=== PATIENT | male | born 1950 | race Caucasian/White ===

== ENCOUNTER 2017-03-04 01:06 | Inpatient (IN) | payer MEDICARE, OTHER ==
[2017-03-04] MEDS ORDERED: AMIODARONE 450 MG in DEXTROSE 5% IN WATER 250 ML IV ONE ×2 (01:24)
[2017-03-04] MEDS ORDERED: DEXTROSE 5% IN WATER 100 ML with AMIODARONE 150 MG IV ONE (01:24)
[2017-03-04 01:32] LABS: Basophils # (A) 0.1 k/uL (0-0.2); Basophils % (A) 1 %; CH 32.5; CHCM 32.3; Eosinophils # (A) 0.7 k/uL (0-0.7); Eosinophils % (A) 6 %; HDW 2.49; HGB 17.2 gm/dL (13.0-17.5); Luc # (Auto) 0.37; Luc % (Auto) 3; Lymphocytes # (A) 4.4 k/uL (1.0-4.8); Lymphocytes % (A) 34 %; MCH 32.3 pg (25.0-35.0); MCHC 31.9 g/dL (31.0-37.0); MCV 101.3 fL (80.0-100.0); Macrocytosis Slight; Mean Platelet Volume 7.1; Monocytes # (A) 0.9 k/uL (0-1.0); Monocytes % (A) 7 %; Neutrophils # (A) 6.5 k/uL (1.3-7.7); Neutrophils % (A) 50 %; RBC 5.34 m/uL (4.30-5.90); WBC (Perox) 12.59
--- NOTE | 2017-03-04 01:35 | ED ---
General Adult HPI - General Chief complaint: Shortness of Breath Stated complaint: SOB Time Seen by Provider: 03/04/17 01:10 Source: patient, RN notes reviewed Mode of arrival: EMS Limitations: no limitations - History of Present Illness Initial comments: This is a 66-year-old male who comes in with past medical history significant for coronary artery disease and COPD. Patient states she's had difficulty breathing over the last couple of days he's run out of medicine service unable to get any relief. Patient decided tonight that is shortness of breath was worse so he called EMS. EMS gave him Solu-Medrol in route as well as some breathing treatments and he does feel better currently. Patient denies any chest pain or palpitations. Patient denies any recent fever or chills. Does have a cough but is nonproductive. Patient denies any abdominal pain patient denies nausea vomiting diarrhea. Patient denies headache patient denies numbness weakness. Patient denies any lightheadedness dizziness or near syncopal episode. - Related Data Home Medications Medication Instructions Recorded Confirmed Atorvastatin [Lipitor] 80 mg PO HS 10/08/14 03/04/17 Beclomethasone Dipropionate [Qvar 2 puff INHALATION RT-BID 10/08/14 03/04/17 80 mcg/puff] Ipratropium [place] [Atrovent Hfa] 2 puff INHALATION RT-QID 10/08/14 03/04/17 Ranitidine HCl 150 mg PO BID 10/08/14 03/04/17 rOPINIRole HCL [Requip] 2 mg PO HS 10/08/14 03/04/17 Clopidogrel [Plavix] 75 mg PO DAILY 10/14/14 03/04/17 Spironolactone [Aldactone] 25 mg PO DAILY 10/14/14 03/04/17 oxyCODONE HCL/ACETAMINOPHEN 1 each PO Q4HR PRN 11/23/14 03/04/17 [Percocet 7.5-325 mg] Albuterol Nebulized [Ventolin 2.5 mg INHALATION RT-Q6H 12/02/14 03/04/17 Nebulized] Lisinopril-Hctz 10-12.5 mg 1 tab PO DAILY 12/02/14 03/04/17 [Zestoretic 10-12.5] Previous Rx's Medication Instructions Recorded Aspirin 325 mg PO DAILY #1 tab 12/07/14 Allergies Allergy/AdvReac Type Severity Reaction Status Date / Time No Known Allergies Allergy Verified 03/04/17 01:19 Review of Systems ROS Statement: Those systems with pertinent positive or pertinent negative responses have been documented in the HPI. ROS Other: All systems not noted in ROS Statement are negative. Past Medical History Past Medical History: Coronary Artery Disease (CAD), Heart Failure, COPD, Deep Vein Thrombosis (DVT), GERD/Reflux, Hyperlipidemia, Hypertension, Myocardial Infarction (SD), Vascular Disorder Additional Past Medical History / Comment(s): 12/01/14 Pt admitted to floor s/p R fem fem bypass. Other HX: SD's x 11 SEP 2014, CHF, RESTLESS LEG SYNDROME, SEVERE RT FOOT PAIN R/T POOR CIRCULTION, SCIATICA PAIN, LEFT ROTATOR CUFF INJURY. Last Myocardial Infarction Date:: 10/08/14 History of Any Multi-Drug Resistant Organisms: None Reported Past Surgical History: Appendectomy, Bowel Resection, Heart Catheterization With Stent, Hernia Repair Additional Past Surgical History / Comment(s): 12/01/14 R femfem bypass, Abdominal aortagram with bilateral extremity, HEART CATH WITH STENT SEP 2014 , HERNIA SURG X3. Past Anesthesia/Blood Transfusion Reactions: No Reported Reaction Date of Last Stent Placement:: 2013 Past Psychological History: No Psychological Hx Reported Additional Psychological History / Comment(s): Pt lives alone in his home. Pt states he is independent. He does however have a great nephew who comes to the home every morning and cooks him breakfast. Pt ambulates using a walker. Pt does not drive but has family who can transport him if needed. Smoking Status: Current every day smoker Past Alcohol Use History: None Reported Past Drug Use History: Marijuana Additional Drug Use History / Comment(s): MARIJUANA 3-4 X a week. On those days he smokes about 3 joints. - Past Family History Mother Family Medical History: Chest Pain / Angina, Diabetes Mellitus, Hypertension, Myocardial Infarction (SD) Additional Family Medical History / Comment(s): Mother of SD at age 84 yrs. Father Additional Family Medical History / Comment(s): Father had black lung disease. General Exam - General Exam Comments Initial Comments: GENERAL: Patient is well-developed and well-nourished. Patient is nontoxic and well- hydrated and is in mild distress. ENT: Neck is soft and supple. No significant lymphadenopathy is noted. Oropharynx is clear. Moist mucous membranes. Neck has full range of motion without eliciting any pain. EYES: The sclera were anicteric and conjunctiva were pink and moist. Extraocular movements were intact and pupils were equal round and reactive to light. Eyelids were unremarkable. PULMONARY: Decreased breath sounds with expiratory wheezing. CARDIOVASCULAR: Patient is tachycardic at about 105 bpm and then occasionally he has a heart rate of 160 ABDOMEN: Soft and nontender with normal bowel sounds. No palpable organomegaly was noted. There is no palpable pulsatile mass. SKIN: Skin is clear with no lesions or rashes and otherwise unremarkable. NEUROLOGIC: Patient is alert and oriented x3. Cranial nerves II through XII are grossly intact. Motor and sensory are also intact. Normal speech, volume and content. Symmetrical smile. MUSCULOSKELETAL: Normal extremities with adequate strength and full range of motion. No lower extremity swelling or edema. No calf tenderness. LYMPHATICS: No significant lymphadenopathy is noted PSYCHIATRIC: Normal psychiatric evaluation. Normal interpersonal interactions appears functionally intact in deals appropriately with others. No signs of depression. No signs of anxiety. Limitations: no limitations Course Vital Signs 03/04/17 03/04/17 01:10 01:24 Temperature 97.2 F L Pulse Rate 75 Respiratory 16 18 Rate Blood Pressure 116/72 O2 Sat by Pulse 97 Oximetry Medical Decision Making - Medical Decision Making Patient's EKG showed a wide complex tachycardia at about 165 bpm QRS is 172 QT interval 322 QTC is 533. EKG done shortly after the first one after the patient converted to a sinus rhythm shows a sinus tachycardia at 106 bpm HI interval is 166 QRS is 100 QT interval 336 QTC is 446. Patient's EKG shows no ST segment elevation. I spoke with Dr. Nargis Barillas wanted amiodarone started to give the patient a bolus 150 mg and then started patient on amiodarone drip. Spoke with Dr. Negron agreed to admit the patient admitted the patient and wrote admitting orders. - Lab Data Result diagrams: 03/04/17 01:15 03/04/17 01:15 Lab Results 03/04/17 03/04/17 03/04/17 Range/Units 01:15 01:15 01:15 WBC 13.0 H (3.8-10.6) k/uL RBC 5.34 (4.30-5.90) m/uL Hgb 17.2 (13.0-17.5) gm/dL Hct 54.0 H (39.0-53.0) % MCV 101.3 H (80.0-100.0) fL MCH 32.3 (25.0-35.0) pg MCHC 31.9 (31.0-37.0) g/dL RDW 13.0 (11.5-15.5) % Plt Count 228 (150-450) k/uL Neutrophils % 50 % Lymphocytes % 34 % Monocytes % 7 % Eosinophils % 6 % Basophils % 1 % Neutrophils # 6.5 (1.3-7.7) k/uL Lymphocytes # 4.4 (1.0-4.8) k/uL Monocytes # 0.9 (0-1.0) k/uL Eosinophils # 0.7 (0-0.7) k/uL Basophils # 0.1 (0-0.2) k/uL Macrocytosis Slight PT (9.0-12.0) sec INR (<1.1) APTT (22.0-30.0) sec Sodium 140 (137-145) mmol/L Potassium 4.5 (3.5-5.1) mmol/L Chloride 104 (98-107) mmol/L Carbon Dioxide 27 (22-30) mmol/L Anion Gap 9 mmol/L BUN 13 (9-20) mg/dL Creatinine 0.90 (0.66-1.25) mg/dL Est GFR (MDRD) Af Amer >60 (>60 ml/min/1.73 sqM) Est GFR (MDRD) Non-Af >60 (>60 ml/min/1.73 sqM) Glucose 104 H (74-99) mg/dL Calcium 9.6 (8.4-10.2) mg/dL Magnesium 1.8 (1.6-2.3) mg/dL Total Bilirubin 0.5 (0.2-1.3) mg/dL AST 27 (17-59) U/L ALT 33 (21-72) U/L Alkaline Phosphatase 64 (38-126) U/L Total Creatine Kinase 163 (55-170) U/L CK-MB (CK-2) 2.9 H* (0.0-2.4) ng/mL CK-MB (CK-2) Rel Index 1.8 Troponin I <0.012 (0.000-0.034) ng/mL Total Protein 7.5 (6.3-8.2) g/dL Albumin 4.4 (3.5-5.0) g/dL 03/04/17 Range/Units 01:15 WBC (3.8-10.6) k/uL RBC (4.30-5.90) m/uL Hgb (13.0-17.5) gm/dL Hct (39.0-53.0) % MCV (80.0-100.0) fL MCH (25.0-35.0) pg MCHC (31.0-37.0) g/dL RDW (11.5-15.5) % Plt Count (150-450) k/uL Neutrophils % % Lymphocytes % % Monocytes % % Eosinophils % % Basophils % % Neutrophils # (1.3-7.7) k/uL Lymphocytes # (1.0-4.8) k/uL Monocytes # (0-1.0) k/uL Eosinophils # (0-0.7) k/uL Basophils # (0-0.2) k/uL Macrocytosis PT 11.2 (9.0-12.0) sec INR 1.1 (<1.1) APTT 26.9 (22.0-30.0) sec Sodium (137-145) mmol/L Potassium (3.5-5.1) mmol/L Chloride (98-107) mmol/L Carbon Dioxide (22-30) mmol/L Anion Gap mmol/L BUN (9-20) mg/dL Creatinine (0.66-1.25) mg/dL Est GFR (MDRD) Af Amer (>60 ml/min/1.73 sqM) Est GFR (MDRD) Non-Af (>60 ml/min/1.73 sqM) Glucose (74-99) mg/dL Calcium (8.4-10.2) mg/dL Magnesium (1.6-2.3) mg/dL Total Bilirubin (0.2-1.3) mg/dL AST (17-59) U/L ALT (21-72) U/L Alkaline Phosphatase (38-126) U/L Total Creatine Kinase (55-170) U/L CK-MB (CK-2) (0.0-2.4) ng/mL CK-MB (CK-2) Rel Index Troponin I (0.000-0.034) ng/mL Total Protein (6.3-8.2) g/dL Albumin (3.5-5.0) g/dL Critical Care Time Critical Care Time: Yes Total Critical Care Time: 35 Disposition Clinical Impression: Wide-complex tachycardia, COPD with acute exacerbation Disposition: ADMITTED IP TO THIS HOSP Referrals: Neo Oden DO [Primary Care Provider] - 1-2 days Time of Disposition: 02:35
[2017-03-04 01:43] LABS: ALT 33 U/L (21-72); AST 27 U/L (17-59); Alkaline Phosphatase 64 U/L (38-126); Anion Gap 9 mmol/L; Blood Urea Nitrogen 13 mg/dL (9-20); Calcium 9.6 mg/dL (8.4-10.2); Carbon Dioxide 27 mmol/L (22-30); Chloride 104 mmol/L (98-107); Glucose 104 mg/dL (74-99); Magnesium 1.8 mg/dL (1.6-2.3); Non-African American GFR(MDRD) >60 (>60 ml/min/1.73 sqM); Potassium 4.5 mmol/L (3.5-5.1); Sodium 140 mmol/L (137-145); Total Bilirubin 0.5 mg/dL (0.2-1.3); Total Protein 7.5 g/dL (6.3-8.2)
[2017-03-04 01:47] LABS: INR 1.1 (<1.1); Partial Thromboplastin Time 26.9 sec (22.0-30.0); Prothrombin Time 11.2 sec (9.0-12.0)
[2017-03-04 02:08] LABS: Creatine Kinase 163 U/L (55-170)
[2017-03-04 02:21] LABS: Troponin I <0.012 ng/mL (0.000-0.034)
[2017-03-04 02:29] LABS: Creatine Kinase MB 2.9 ng/mL (0.0-2.4)
[2017-03-04] MEDS ORDERED: IPRATROPIUM-ALBUTEROL 3 ML NEB INHALATION PRN ×3 (02:36→22:44)
--- NOTE | 2017-03-04 03:31 | XR ---
PROCEDURE: FILM CXR 2 VIEWS HISTORY: 66-year-old male with chest pain. COMPARISON: Chest radiograph 10/14/2014 TECHNIQUE: Frontal and lateral views of the chest were obtained. FINDINGS: Cardiomediastinal silhouette is stable. Mild peribronchial cuffing, may be due to bronchitis or interstitial edema. Ground glass densities in the left lower lobe may be due to developing pneumonia. Followup chest x-ray in 4 weeks is recommended. Bones are unremarkable for age. IMPRESSION: Mild peribronchial cuffing, may be due to bronchitis or interstitial edema.. Ground glass densities in the left lower lobe may be due to developing pneumonia. Followup chest x-ray in 4 weeks is recommended.. [employer] 03/04/17 03:41 Verify Receipt Verified receipt with JOLEEN Recio in ER for Dr. Aaron on 03/04 03:41 (-04:00)
[2017-03-04 03:56] VITALS: BMI 25.5
[2017-03-04] MEDS: methylPREDNISolone SOD SUCCI 125 MG/2 ML VIAL IV SCH ×3 (06:52→17:33)
--- NOTE | 2017-03-04 08:34 | P.CRDCN ---
History of Present Illness Consult date: 03/04/17 Requesting physician: Sav Negron Reason for Consult (text): VSolomon tach Chief complaint: Shortness of breath History of present illness: Is a 66-year-old gentleman with history of hypertension, hyperlipidemia, coronary artery disease with prior circumflex stenting, severe PAD with prior peripheral bypass, the OPD, nicotine dependence, who follows with Dr. Oden as an outpatient. Patient presents to the hospital with symptoms of severe difficulty in breathing, patient states he also felt his heart racing very fast.. According to the patient he had ran out of his inhalers at home and states that his breathing became severe and for this reason he called EMS to be brought to the hospital. There is no EMS documentation in the chart. EKG on arrival here showed a sustained ventricular tachycardia, shortly after arrival patient converted to normal sinus rhythm, again within 1 minute patient went back into sustained ventricular tachycardia. He was given an amiodarone bolus and started on amiodarone drip. EKG performed this morning showed a normal sinus rhythm with lateral ST-T wave changes. X-ray and admission revealed mild peribronchial cuffing may be due to bronchitis or interstitial edema. Possible pneumonia. The pressure on arrival 116/70. White blood cell count on admission 13.0, hemoglobin 17.2, platelet count 228. Potassium 4.5, BUN 13, creatinine 0.9. The serum level I.8, troponin 0.012. At the time of my examination this morning, patient denies any chest discomfort, no palpitations, breathing is significantly improved from admission, although the patient continues to have wheezing. Past Medical History Past Medical History: Coronary Artery Disease (CAD), Heart Failure, COPD, Deep Vein Thrombosis (DVT), GERD/Reflux, Hyperlipidemia, Hypertension, Myocardial Infarction (MA), Vascular Disorder Additional Past Medical History / Comment(s): 12/01/14 Pt admitted to floor s/p R fem fem bypass. Other HX: MA's x 11 SEP 2014, CHF, RESTLESS LEG SYNDROME, SEVERE RT FOOT PAIN R/T POOR CIRCULTION, SCIATICA PAIN, LEFT ROTATOR CUFF INJURY. BILATERAL HIP PAIN Last Myocardial Infarction Date:: 10/08/14 History of Any Multi-Drug Resistant Organisms: None Reported Past Surgical History: Appendectomy, Bowel Resection, Heart Catheterization With Stent, Hernia Repair Additional Past Surgical History / Comment(s): 12/01/14 R femfem bypass, Abdominal aortagram with bilateral extremity, HEART CATH WITH STENT SEP 2014 , HERNIA SURG X3. Past Anesthesia/Blood Transfusion Reactions: No Reported Reaction Date of Last Stent Placement:: 2013 Past Psychological History: No Psychological Hx Reported Additional Psychological History / Comment(s): Pt lives alone in his home. Pt states he is independent. He does however have a great nephew who comes to the home every morning and cooks him breakfast. Pt ambulates using a walker. Pt does not drive but has family who can transport him if needed. Smoking Status: Current every day smoker Past Alcohol Use History: None Reported Past Drug Use History: Marijuana Additional Drug Use History / Comment(s): MARIJUANA 3-4 X a week. On those days he smokes about 3 joints. - Past Family History Mother Family Medical History: Chest Pain / Angina, Diabetes Mellitus, Hypertension, Myocardial Infarction (MA) Additional Family Medical History / Comment(s): Mother of MA at age 84 yrs. Father Additional Family Medical History / Comment(s): Father had black lung disease. Medications and Allergies Home Medications Medication Instructions Recorded Confirmed Type Atorvastatin [Lipitor] 80 mg PO HS 10/08/14 03/04/17 History Beclomethasone Dipropionate [Qvar 2 puff INHALATION RT-BID 10/08/14 03/04/17 History 80 mcg/puff] Ipratropium [place] [Atrovent Hfa] 2 puff INHALATION RT-QID 10/08/14 03/04/17 History Ranitidine HCl 150 mg PO BID 10/08/14 03/04/17 History rOPINIRole HCL [Requip] 2 mg PO HS 10/08/14 03/04/17 History Clopidogrel [Plavix] 75 mg PO DAILY 10/14/14 03/04/17 History Spironolactone [Aldactone] 25 mg PO DAILY 10/14/14 03/04/17 History oxyCODONE HCL/ACETAMINOPHEN 1 tab PO Q4HR PRN 11/23/14 03/04/17 History [Percocet 7.5-325 mg] Albuterol Nebulized [Ventolin 2.5 mg INHALATION RT-Q6H 12/02/14 03/04/17 History Nebulized] Lisinopril-Hctz 10-12.5 mg 1 tab PO DAILY 12/02/14 03/04/17 History [Zestoretic 10-12.5] Allergies Allergy/AdvReac Type Severity Reaction Status Date / Time No Known Allergies Allergy Verified 03/04/17 07:58 Physical Exam Vitals: Vital Signs Temp Pulse Pulse Resp BP BP Pulse Ox 03/04/17 04:00 97.2 F L 82 20 112/71 94 L 03/04/17 03:08 90 18 112/65 96 03/04/17 02:58 97.2 F L 82 20 112/71 94 L 03/04/17 02:38 86 18 103/64 97 Intake and Output 03/03/17 03/04/17 03/04/17 22:59 06:59 14:59 Intake Total 83.2 Output Total 100 Balance -16.8 Intake: IV 83.2 Amiodarone 450 mg In 83.2 Dextrose 5% in Water 250 ml @ 1 MG/MIN 34.53 mls/ hr IV .Q7H31M ONE Rx#: [id number] Output: Urine 100 Other: Voiding Method Toilet Urinal # Voids 1 Weight 79.2 kg PHYSICAL EXAMINATION: HEENT: Head is atraumatic, normocephalic. Pupils equal, round. Neck is supple. There is no elevated jugular venous pressure. HEART EXAMINATION: Heart S1, S2 normal. No murmur or gallop heard. CHEST EXAMINATION: Lungs reveal scattered wheezes throughout with decreased air exchange ABDOMEN: Soft, nontender. Bowel sounds are heard. No organomegaly noted. EXTREMITIES: 2+ peripheral pulses with no evidence of peripheral edema and no calf tenderness noted. NEUROLOGIC patient is awake, alert and oriented -3. . Results 03/04/17 01:15 03/04/17 01:15 Current Medications Generic Name Dose Route Start Last Admin Trade Name Freq PRN Reason Stop Dose Admin Albuterol/Ipratropium 3 ml 03/04/17 02:36 Duoneb 0.5 Mg-3 Mg/3 Ml Soln INHALATION RT-Q4H PRN Shortness Of Breath Or Wheezing Amiodarone HCl 450 mg/ 259 mls @ 34.53 mls/hr 03/04/17 01:24 03/04/17 02:06 Dextrose/Water IV 03/04/17 08:54 1 mg/min .Q7H31M ONE 34.53 mls/hr 1 MG/MIN Administration Insulin Human Lispro 0 unit 03/04/17 12:30 Humalog SQ ACHS [facility] Protocol Methylprednisolone Sodium Succinate 60 mg 03/04/17 06:00 03/04/17 06:52 Solu-Medrol IV 60 mg Q6HR ROCHELLE Administration Intake and Output 03/03/17 03/04/17 03/04/17 22:59 06:59 14:59 Intake Total 83.2 Output Total 100 Balance -16.8 Intake: IV 83.2 Amiodarone 450 mg In 83.2 Dextrose 5% in Water 250 ml @ 1 MG/MIN 34.53 mls/ hr IV .Q7H31M ONE Rx#: [id number] Output: Urine 100 Other: Voiding Method Toilet Urinal # Voids 1 Weight 79.2 kg EKG Interpretations (text) Initial EKG showed sustained ventricular tachycardia. EKG this morning shows normal sinus rhythm with lateral ST-T wave changes Assessment and Plan Plan: Assessment and plan #1 sustained ventricular tachycardia #2 severe shortness of breath, decreased secondary to exacerbation of COPD #3 known history of coronary artery disease with prior circumflex stenting #4 severe PAD with prior peripheral bypass #5 nicotine dependence #6 COPD #7 hypertension #8 hyperlipidemia Plan We will continue the IV amiodarone drip. We will also obtain to further troponin values. Obtain echocardiogram with Doppler study. We'll put the patient on aspirin, Lipitor, resume his Zestoretic, Aldactone, add beta francesco. Give the patient 2 g of IV magnesium. Further recommendations to follow. DNP note has been reviewed, I agree with a documented findings and plan of care. Patient was seen and examined.
[2017-03-04] MEDS ORDERED: ALBUTEROL NEBULIZED 2.5 MG/3 ML INHALATION PRN (08:57)
[2017-03-04] MEDS ORDERED: oxyCODONE-APAP 10-325MG 1 EACH TAB PO PRN (08:57)
[2017-03-04] MEDS: METOPROLOL TARTRATE 12.5 MG TAB PO SCH (09:20)
[2017-03-04] MEDS: SPIRONOLACTONE 25 MG TAB PO SCH (09:20)
[2017-03-04] MEDS: MAGNESIUM SULFATE-D5W PMX 1 GM in DEXTROSE/WATER 1 100ML.BAG IVPB SCH ×2 (09:20→10:57)
[2017-03-04] MEDS: LISINOPRIL-HCTZ 10-12.5 MG 1 EACH TAB PO SCH (09:20)
[2017-03-04] MEDS: ASPIRIN 81 MG CHEW PO SCH (09:20)
[2017-03-04] MEDS: CLOPIDOGREL 75 MG TAB PO SCH (09:21)
[2017-03-04] MEDS ORDERED: ATORVASTATIN 80 MG TAB PO STA (09:50)
[2017-03-04] MEDS ORDERED: SODIUM CHLORIDE 0.9% 1,000 ML in EMPTY BAG 1 BAG IV ONE (09:50)
[2017-03-04] MEDS ORDERED: ALPRAZolam 0.5 MG TAB PO PRN (09:50)
[2017-03-04] MEDS ORDERED: ALPRAZolam 0.25 MG TAB PO PRN (09:50)
[2017-03-04] MEDS ORDERED: NITROGLYCERIN SL TABS 0.4 MG TAB SUBLINGUAL PRN (09:50)
[2017-03-04] MEDS ORDERED: ASPIRIN 81 MG CHEW PO STA (09:50)
[2017-03-04] MEDS: AMIODARONE 450 MG in DEXTROSE 5% IN WATER 250 ML IV SCH ×2 (10:56)
--- NOTE | 2017-03-04 11:00 | ECHOF ---
Referral Reason:[facility] MEASUREMENTS -------- HEIGHT: 175.3 cm WEIGHT: 78.9 kg BP: 112/71 RVIDd: 3.5 cm (< 3.3) IVSd: 1.2 cm (0.6 - 1.1) LVIDd: 5.7 cm (3.9 - 5.3) LVPWd: 1.2 cm (0.6 - 1.1) IVSs: 1.8 cm LVIDs: 4.4 cm LVPWs: 1.6 cm LA Diam: 4.1 cm (2.7 - 3.8) LAESV Index (A-L): 27.22 ml/m Ao Diam: 3.6 cm (2.0 - 3.7) AV Cusp: 2.3 cm (1.5 - 2.6) MV EXCURSION: 14.751 mm (> 18.000) MV EF SLOPE: 63 mm/s (70 - 150) EPSS: 1.3 cm MV E Kleber: 0.64 m/s MV DecT: 264 ms MV A Kleber: 0.85 m/s MV E/A Ratio: 0.75 RAP: 5.00 mmHg RVSP: 36.60 mmHg FINDINGS -------- Sinus rhythm with extra systolic beats. This was a technically adequate study. The left ventricular size is normal. There is borderline concentric left ventricular hypertrophy. Overall left ventricular systolic function is severely impaired with, an EF between 20 - 25 %. Basal inferior LV wall motion is hypokinetic. Apical anterior LV wall motion is akinetic. Apical lateral LV wall motion is akinetic. Apical inferior LV wall motion is akinetic. Apical septum LV wall motion is akinetic. The right ventricle is mildly enlarged. Normal LA size by volume 22+/-6 ml/m2. The right atrium is normal in size. There is mild aortic valve sclerosis. Mild mitral annular calcification present. There is trace mitral regurgitation. Mild tricuspid regurgitation present. There is mild pulmonary hypertension. The right ventricular systolic pressure, as measured by Doppler, is 36.60mmHg. The pulmonic valve was not well visualized. The aortic root size is normal. The inferior vena cava is mildly dilated. The pericardium is normal. CONCLUSIONS -------- 1. Sinus rhythm with extra systolic beats. 2. Apical septum LV wall motion is akinetic. 3. The right ventricle is mildly enlarged. 4. Normal LA size by volume 22+/-6 ml/m2. 5. The right atrium is normal in size. 6. There is mild aortic valve sclerosis. 7. Mild mitral annular calcification present. 8. There is trace mitral regurgitation. 9. There is mild pulmonary hypertension. 10. The right ventricular systolic pressure, as measured by Doppler, is 36.60mmHg. 11. The pulmonic valve was not well visualized. 12. This was a technically adequate study. 13. The aortic root size is normal. 14. The inferior vena cava is mildly dilated. 15. The pericardium is normal. 16. The left ventricular size is normal. 17. There is borderline concentric left ventricular hypertrophy. 18. Overall left ventricular systolic function is severely impaired with, an EF between 20 - 25 %. 19. Basal inferior LV wall motion is hypokinetic. 20. Apical anterior LV wall motion is akinetic. 21. Apical lateral LV wall motion is akinetic. 22. Apical inferior LV wall motion is akinetic. GENERAL SERVICE OFFICER: Eda Cody RDCS
[2017-03-04 12:02] LABS: Glucose,Whole Blood 163 mg/dL (75-99)
[2017-03-04] MEDS: INSULIN LISPRO (humaLOG) 300 UNIT/3 ML VIAL SQ SCH ×3 (12:17→22:04)
[2017-03-04 14:12] LABS: Hemoglobin A1C 5.9 % (4.2-6.1)
[2017-03-04 16:57] LABS: Glucose,Whole Blood 189 mg/dL (75-99)
[2017-03-04] MEDS: NICOTINE 21MG/24HR PATCH TRANSDERM SCH (17:33)
[2017-03-04] MEDS ORDERED: IPRATROPIUM-ALBUTEROL 3 ML NEB INHALATION SCH (20:00)
[2017-03-04] MEDS ORDERED: ATORVASTATIN 80 MG TAB PO SCH (21:00)
[2017-03-04 21:15] LABS: Glucose,Whole Blood 143 mg/dL (75-99)
--- NOTE | 2017-03-04 23:21 | HP ---
DATE OF ADMISSION: 03/04/2017 PRESENTING COMPLAINT: Short of breath. HISTORY OF PRESENTING COMPLAINT: This is a 66-year-old patient of Dr. Neo Oden with rather extensive medical history. Chronic stable medical conditions include peripheral artery disease, restless leg syndrome, coronary artery disease with stent, CHF, GERD, hypertension, hyperlipidemia, DVT, left rotator cuff injury. Patient has for 2 days been out of his medications, presents with worsening shortness of breath coming on for some time, wheezing. No cough. No fever. Rather short of breath. The patient was noted to go into wide-complex tachycardia, put on amiodarone, just got ventricular tachycardia, admitted for the same. Patient is quite a bit short of breath; tired, rundown and patient continues to smoke. REVIEW OF SYSTEMS: CONSTITUTIONAL: Weak and tired. HEENT: None. RESPIRATORY: As above. CARDIOVASCULAR: Some chest pressure. GASTROINTESTINAL: None. GENITOURINARY: None. MUSCULOSKELETAL: Aches and pains in the joints. DERMATOLOGICAL: None. HEMATOLOGIC: None. LYMPHATICS: None. PSYCHIATRY: Anxious. NEUROLOGICAL: None. PAST HISTORY: Peripheral artery disease, restless leg syndrome, coronary artery disease with stent, congestive heart failure; GERD, hypertension, hyperlipidemia, DVT, left rotator cuff injury, severe right foot pain due to poor circulation, sciatica pain, bilateral hip pain. PAST SURGICAL HISTORY: Appendectomy, bowel resection, cardiac cath with stent. In November 2016, right fem-fem bypass, cardiac cath with stent in 2013, hernia surgery. SOCIAL HISTORY: Lives alone, has a nephew that comes and cooks him a breakfast, uses a walker, does not drive. Patient still smoking about a pack a day. Does marijuana about 3 to 4 times a week. FAMILY HISTORY: Diabetes, hypertension, myocardial infarction. HOME MEDICATIONS: 1. ProAir 2 puffs every 6 hours p.r.n. 2. Percocet 10, 1 tablet q.4 p.r.n. 3. Incruse Ellipta 1 puff daily. 4. Zestoretic 20/12.5, 1 tablet p.o. daily. 5. Plavix 75 mg p.o. daily. 6. Lipitor 20 mg p.o. q.h.s. 7. Requip 2 mg p.o. q.h.s. ALLERGIES: None. On examination, vital signs on presentation: Temperature 98.72, pulse 75, respirations 16, blood pressure 106/72, pulse ox 97% on 2L on presentation. GENERAL APPEARANCE: Somewhat unkempt; lying in bed, short of breath. EYES: Pupils equal. Conjunctivae normal. HEENT: Oral cavity poor dentition. NECK: JVD not raised. Mass not palpable. RESPIRATORY: Effort increased. LUNGS: Diminished breath sounds, prolonged expiration, wheezing. CARDIOVASCULAR: First and second sounds normal. No edema. ABDOMEN: Soft, nontender. Liver and spleen not palpable. LYMPHATIC: No lymph nodes palpable in neck or axillae. PSYCHIATRY: Alert and oriented x3. Mood and affect slightly anxious-appearing. NEUROLOGICAL: Pupils equal. Cranial nerves grossly intact. Power and sensation decreased somewhat distally. Distal pulses are down. INVESTIGATIONS: White count 13, hemoglobin 7.2. Potassium 4.5. BUN and creatinine are normal. Troponin less than 0.012, 0.0336. EKG on presentation: Broad-spectrum tachycardia with rate up to 165. Chest x-ray shows a possible right middle lobe infiltrate, prominent pulmonary artery. Two-D echocardiogram: EF of 20% to 25% and multiple wall motion abnormalities. ASSESSMENT: 1. Acute severe chronic obstructive pulmonary disease exacerbation in a current smoker. 2. Right middle lobe pneumonia, suspect gram-negative organism. 3. Sustained ventricular tachycardia, could be from underlying acute ischemic event. 4. Peripheral artery disease with prior intervention. 5. Restless leg syndrome. 6. Coronary disease with prior history of stent. 7. Chronic congestive heart failure from systolic dysfunction; ejection fraction of 20% to 25%, underlying coronary artery disease. 8. Gastroesophageal reflux disease. 9. Essential hypertension. 10. Hyperlipidemia. 11. Left rotator cuff injury. 12. Chronic nicotine dependence. Patient is a smoker. PLAN: Patient was put on IV amiodarone. Will also start the patient on q.4 nebulized bronchodilators, IV Solu-Medrol. Will also add nebulized steroids. Cardiology was consulted. Home medications are resumed. Put on bronchodilators, steroids. Will give a nicotine patch. Prognosis guarded.
[2017-03-05] MEDS: methylPREDNISolone SOD SUCCI 125 MG/2 ML VIAL IV SCH ×5 (00:41→23:21)
[2017-03-05] MEDS: METOPROLOL TARTRATE 12.5 MG TAB PO SCH ×3 (01:20→20:42)
[2017-03-05] MEDS: AMIODARONE 450 MG in DEXTROSE 5% IN WATER 250 ML IV SCH ×2 (01:20)
[2017-03-05 06:37] LABS: Basophils % (A) 0 %; CH 32.7; CHCM 33.6; Eosinophils # (A) 0.1 k/uL (0-0.7); Eosinophils % (A) 1 %; HCT 45.4 % (39.0-53.0); HDW 2.54; HGB 15.4 gm/dL (13.0-17.5); Luc # (Auto) 0.07; Luc % (Auto) 0; Lymphocytes # (A) 1.3 k/uL (1.0-4.8); Lymphocytes % (A) 6 %; MCH 33.1 pg (25.0-35.0); MCHC 33.9 g/dL (31.0-37.0); MCV 97.7 fL (80.0-100.0); Mean Platelet Volume 7.4; Monocytes # (A) 0.5 k/uL (0-1.0); Monocytes % (A) 2 %; Neutrophils # (A) 18.3 k/uL (1.3-7.7); Neutrophils % (A) 90 %; RBC 4.65 m/uL (4.30-5.90); RDW 12.6 % (11.5-15.5); WBC 20.3 k/uL (3.8-10.6); WBC (Perox) 20.98
[2017-03-05 06:42] LABS: Glucose,Whole Blood 134 mg/dL (75-99)
[2017-03-05 06:49] LABS: ALT 21 U/L (21-72); AST 27 U/L (17-59); Alkaline Phosphatase 46 U/L (38-126); Anion Gap 11 mmol/L; Blood Urea Nitrogen 17 mg/dL (9-20); Calcium 8.9 mg/dL (8.4-10.2); Carbon Dioxide 24 mmol/L (22-30); Chloride 102 mmol/L (98-107); Glucose 132 mg/dL (74-99); Magnesium 1.6 mg/dL (1.6-2.3); Non-African American GFR(MDRD) >60 (>60 ml/min/1.73 sqM); Potassium 4.2 mmol/L (3.5-5.1); Sodium 137 mmol/L (137-145); Total Bilirubin 0.5 mg/dL (0.2-1.3); Total Protein 6.9 g/dL (6.3-8.2)
[2017-03-05] MEDS: INSULIN LISPRO (humaLOG) 300 UNIT/3 ML VIAL SQ SCH ×4 (06:52→20:44)
[2017-03-05] MEDS ORDERED: TIOTROPIUM 18 MCG/PUFF INHALER INHALATION SCH (08:00)
[2017-03-05] MEDS: NICOTINE 21MG/24HR PATCH TRANSDERM SCH (08:36)
[2017-03-05] MEDS: ASPIRIN 81 MG CHEW PO SCH (08:36)
[2017-03-05] MEDS: LISINOPRIL-HCTZ 10-12.5 MG 1 EACH TAB PO SCH (08:36)
[2017-03-05] MEDS: SPIRONOLACTONE 25 MG TAB PO SCH (08:36)
[2017-03-05] MEDS: CLOPIDOGREL 75 MG TAB PO SCH (08:36)
[2017-03-05] MEDS ORDERED: LIDOCAINE 2% INJ 20 MG/ML (20 ML MDV) ONE (10:31)
[2017-03-05] MEDS: IPRATROPIUM-ALBUTEROL 3 ML NEB INHALATION SCH ×4 (10:37→19:40)
[2017-03-05] MEDS ORDERED: MIDAZOLAM 2 MG/2 ML VIAL ONE ×2 (10:59→11:24)
[2017-03-05] MEDS ORDERED: fentaNYL (PF) 50 MCG/ML 2 ML AMP ONE (10:59)
[2017-03-05] MEDS ORDERED: MIDAZOLAM 2 MG/2 ML VIAL IV ONE ×2 (11:00→11:30)
[2017-03-05] MEDS ORDERED: fentaNYL (PF) 50 MCG/ML 2 ML AMP IV ONE (11:00)
[2017-03-05] MEDS ORDERED: VERAPAMIL 2.5 MG/ML 2 ML AMP ONE (11:00)
[2017-03-05] MEDS ORDERED: LIDOCAINE 2% INJ 20 MG/ML SQ ONE (11:08)
[2017-03-05] MEDS ORDERED: VERAPAMIL SYRINGE (5 MG/10 ML) INTRAARTER ONE (11:10)
[2017-03-05] MEDS ORDERED: BIVALIRUDIN BOLUS 250 MG/50 ML IV ONE (11:16)
[2017-03-05] MEDS ORDERED: BIVALIRUDIN 250 MG in SODIUM CHLORIDE 0.9% 50 ML IV ONE (11:17)
[2017-03-05] MEDS ORDERED: IV FLUID CONTINUATION 1,000 ML IV ONE (11:24)
[2017-03-05] MEDS: NITROGLYCERIN 1000MCG/10ML SYRINGE INTRACORON ONE (11:29)
[2017-03-05] MEDS ORDERED: NITROGLYCERIN 1000MCG/10ML SYRINGE INTRACORON ONE (11:35)
[2017-03-05] MEDS ORDERED: CLOPIDOGREL 75 MG TAB PO ONE (11:50)
[2017-03-05] MEDS ORDERED: ZOLPIDEM 5 MG TAB PO PRN (11:51)
[2017-03-05] MEDS ORDERED: NITROGLYCERIN SL TABS 0.4 MG TAB SUBLINGUAL PRN (11:51)
[2017-03-05] MEDS ORDERED: MAG HYDROX/AL HYDROX/SIMETH 30 ML CUP PO PRN (11:51)
[2017-03-05] MEDS ORDERED: ATROPINE SULFATE 0.1 MG/ML 10ML SYRINGE IV PRN (11:51)
[2017-03-05] MEDS ORDERED: RX INFO: IV CONTRAST WAS GIVEN 1 EACH MISC MISCELLANE PRN (11:51)
[2017-03-05] MEDS ORDERED: CLOPIDOGREL 75 MG TAB ONE ×2 (11:53→11:54)
[2017-03-05] MEDS ORDERED: IOHEXOL 350 MG/ML 125ML BOTTLE INJ ONE (11:59)
[2017-03-05] MEDS ORDERED: SODIUM CHLORIDE 0.9% 1,000 ML IV SCH (12:00)
[2017-03-05 12:18] LABS: Glucose,Whole Blood 124 mg/dL (75-99)
[2017-03-05 17:25] LABS: Glucose,Whole Blood 103 mg/dL (75-99)
--- NOTE | 2017-03-05 18:32 | CC ---
DATE OF SERVICE: March 05, 2017. Performing physician: Feliz Jacob M.D., optometrist. PROCEDURE PERFORMED: 1. Selective right and left coronary angiogram. 2. Left heart catheterization. 3. Successful stenting of the proximal RCA using 2.25 x 18 mm Xience LUPE with a good angiographic results. INDICATION: This is a pleasant 66-year-old gentleman who is known to have coronary artery disease and known to have occluded left circumflex coronary artery presented to the hospital with chest discomfort concerning for angina. Cardiac enzymes came in to be slightly abnormal consistent with acute [id number] myocardial infarction. The patient was seen and evaluated by Dr. Arcos who recommended proceeding with a heart catheterization. Approach: Right radial artery. COMPLICATIONS: None. Level of sedation: Moderate with sedation length of about an hour. PROCEDURE DESCRIPTION: After obtaining informed consent, the patient was brought to the cardiac lab pack chemist. The right radial artery was cannulated using micropuncture technique. The micropuncture wire passed easily, then I placed a 6 Hebrew sheath in the right radial artery. Subsequently, I gave the patient 2 mg of verapamil IA. After that, I did selective right and left coronary angiogram using JR4 and JL 3.5 catheters. I did a left heart catheterization using JR4 catheter which slipped into the left ventricle and I did pullback after that. After that, I did intervene on the RCA. Please see separate paragraph for that. SELECTIVE CORONARY ANGIOGRAM: 1. The right coronary artery is a medium caliber vessel and it is a dominant vessel. The proximal RCA appeared to have severe lesion seems to be in the range of 90%. This is by the bifurcation of a large acute marginal branch. The mid RCA appeared to have mild disease only and the RCA distally appeared to have mild disease only as well. 2. Left main is angiographically normal. It bifurcates into the left circumflex and left anterior descending artery. 3. The left circumflex apparently is a large-caliber vessel and it is occluded in the proximal portion by the bifurcation of a large obtuse marginal branch. The ostial of that ostial marginal branch appeared to have a tight lesion seems to be in the range of 90%. 4. Left anterior descending artery: The proximal left anterior descending artery appeared to have disease in the range of 40% to 50%. The mid LAD appeared to be angiographically normal and the LAD distally is angiographically normally. The LAD in the midportion gives rise into a large diagonal branch, which seems to be angiographically normal. PCI of the RCA: Anticoagulation was initiated using Angiomax. Subsequently, I took JR4 guide and RCA was engaged. A Whisper wire was used to wire the right coronary artery. Subsequently, I did predilatation using 20 x 12 mm balloon. Then I deployed 2.25 x 18 mm Xience LUPE, where the stent was positioned under fluoroscopy guidance and deployed under 14 atmospheres for 20 seconds. I postdilated that stent using a 2.5 x 12 mm NC balloon, where the balloon was positioned again under fluoroscopy guidance and inflated twice under 16 and 14 atmospheres. The following angiogram showed good angiographic results without perforation and without dissection with LEVY-3 flow in the RCA. CONCLUSION: 1. Severe disease involving the proximal right coronary artery. 2. Severe disease involving the ostial first obtuse marginal branch of the left circumflex. 3. Chronically occluded left circumflex in the proximal portion. 4. Intermediate disease involving the proximal LAD. 5. Successful stenting of the RCA using 2.25 x 18 mm Xience LUPE with a good angiographic results. POSTPROCEDURE MANAGEMENT: The patient will be scheduled to undergo a PTCA of the OM down the line.
--- NOTE | 2017-03-05 18:52 | PN ---
DATE OF SERVICE: 03/05/2017 PRESENTING COMPLAINT: Shortness of breath. INTERVAL HISTORY: This is a 66-year-old patient who presented to the emergency room on 03/04/2017 with shortness of breath for the previous 2 days. Patient was found to be in a wide complex tachycardia. Cardiology was consulted and recommended a cardiac catheterization for which he had that procedure on 03/05/2017. Post procedure patient looked laying in the bed, looking comfortable, family friend at the bedside. Patient is conversant. No acute distress noted, looking comfortable. Review of systems done for constitutional, cardiovascular, gastrointestinal, pulmonary with relevant findings as above. Current medications continue on: 1. DuoNeb. 2. Aspirin. 3. Atropine. 4. Lipitor. 5. Plavix. 6. Solu-Medrol. Physical exam: Vital signs: Temperature 98.8, heart rate 58, respiratory rate 18, blood pressure 105/55, oxygen saturation 97% on 2 liters nasal cannula. General appearance: Patient remains somewhat unkempt, lying in bed in no acute distress, talking with family at the bedside. Eyes pupils equal. Conjunctivae normal. Neck: JVD not raised. Mass not palpable. Respiratory effort normal. Lungs diminished breath sounds bilaterally prolonged expiration wheezing noted. Cardiovascular: S1, S2 normal. No edema. Abdomen soft, nontender. Liver and spleen are not palpable. Psychiatry: Alert and oriented x3. Mood and affect slightly anxious appearing yet jovial with family. INVESTIGATIONS: Accu-Cheks continued to be followed. CK-MB elevated 2.9. Troponin elevated also at 0.397. ASSESSMENT: 1. Acute severe chronic obstructive pulmonary disease exacerbation in a current smoker. 2. Right middle lobe pneumonia, suspect gram-negative organism. 3. Sustained ventricular tachycardia, could be from underlying acute ischemic event. 4. Peripheral artery disease with prior intervention. 5. Restless leg syndrome. 6. Coronary artery disease with prior history of a stent. 7. Chronic congestive heart failure from systolic dysfunction. Ejection fraction 20 to 25%, underlying coronary artery disease. 8. Gastroesophageal reflux disease. 9. Essential hypertension. 10. Hyperlipidemia. 11. Rotator cuff injury. 12. Chronic nicotine dependence. Patient is a smoker. PLAN: Cardiac cath performed today. Discussed with interventional cardiology stent placed to the right coronary artery report is pending. Discussed with patient smoking habit and the necessity for him to stop. Patient very anxious to leave today and be discharged today. Patient educated on the importance of remaining here at the hospital while we continue to get his current conditions to respond to treatment. Patient is agreeable to remain for today. Would like to leave tomorrow. A history and physical was performed on the patient by me/nurse practitioner and attending/Dr. Negron. The relevant points of the history/physical/diagnosis/plan was discussed and is as dictated above. I performed a history and physical examination of this patient and discussed the same with the dictator. I agree with the dictator's note. Any additional findings/opinions, etc. will be noted.
[2017-03-05 20:31] LABS: Glucose,Whole Blood 162 mg/dL (75-99)
[2017-03-05] MEDS: ATORVASTATIN 80 MG TAB PO SCH (20:42)
[2017-03-06 06:28] LABS: Basophils # (A) 0.1 k/uL (0-0.2); Basophils % (A) 1 %; CH 32.9; CHCM 33.4; Eosinophils % (A) 0 %; HCT 43.6 % (39.0-53.0); HDW 2.48; HGB 14.5 gm/dL (13.0-17.5); Luc # (Auto) 0.08; Luc % (Auto) 0; Lymphocytes % (A) 6 %; MCH 32.9 pg (25.0-35.0); MCHC 33.2 g/dL (31.0-37.0); Mean Platelet Volume 7.3; Monocytes # (A) 0.5 k/uL (0-1.0); Monocytes % (A) 3 %; Neutrophils # (A) 16.4 k/uL (1.3-7.7); Neutrophils % (A) 91 %; RBC 4.41 m/uL (4.30-5.90); RDW 12.8 % (11.5-15.5); WBC 18.1 k/uL (3.8-10.6); WBC (Perox) 18.85
[2017-03-06 06:40] LABS: Anion Gap 6 mmol/L; Blood Urea Nitrogen 20 mg/dL (9-20); Calcium 8.8 mg/dL (8.4-10.2); Carbon Dioxide 27 mmol/L (22-30); Chloride 104 mmol/L (98-107); Glucose 126 mg/dL (74-99); Non-African American GFR(MDRD) >60 (>60 ml/min/1.73 sqM); Potassium 4.4 mmol/L (3.5-5.1); Sodium 137 mmol/L (137-145)
[2017-03-06] MEDS: methylPREDNISolone SOD SUCCI 125 MG/2 ML VIAL IV SCH ×3 (06:40→17:19)
[2017-03-06] MEDS: INSULIN LISPRO (humaLOG) 300 UNIT/3 ML VIAL SQ SCH ×4 (06:45→21:01)
[2017-03-06 06:49] LABS: Glucose,Whole Blood 130 mg/dL (75-99)
[2017-03-06] MEDS: ASPIRIN 81 MG CHEW PO SCH (08:17)
[2017-03-06] MEDS: METOPROLOL TARTRATE 12.5 MG TAB PO SCH ×2 (08:17→21:00)
[2017-03-06] MEDS: CLOPIDOGREL 75 MG TAB PO SCH (08:17)
[2017-03-06] MEDS: SPIRONOLACTONE 25 MG TAB PO SCH (08:17)
[2017-03-06] MEDS: LISINOPRIL-HCTZ 10-12.5 MG 1 EACH TAB PO SCH (08:17)
[2017-03-06] MEDS: NICOTINE 21MG/24HR PATCH TRANSDERM SCH (08:17)
[2017-03-06] MEDS: IPRATROPIUM-ALBUTEROL 3 ML NEB INHALATION SCH ×4 (08:33→19:33)
[2017-03-06 11:22] LABS: Glucose,Whole Blood 190 mg/dL (75-99)
[2017-03-06] MEDS ORDERED: SODIUM CHLORIDE 0.9% 1,000 ML in EMPTY BAG 1 BAG IV ONE (13:06)
[2017-03-06] MEDS ORDERED: ALPRAZolam 0.5 MG TAB PO PRN (13:06)
[2017-03-06] MEDS ORDERED: NITROGLYCERIN SL TABS 0.4 MG TAB SUBLINGUAL PRN ×2 (13:06→20:05)
[2017-03-06] MEDS ORDERED: ALPRAZolam 0.25 MG TAB PO PRN (13:06)
--- NOTE | 2017-03-06 13:15 | P.PN ---
Subjective Principal diagnosis: Non-Q-wave AK/sustained VT s a 66-year-old gentleman with history of hypertension, hyperlipidemia , coronary artery disease with prior circumflex stenting, severe PAD with prior peripheral bypass, the OPD, nicotine dependence, who follows with Dr. Oden as an outpatient. Patient presents to the hospital with symptoms of severe difficulty in breathing, patient states he also felt his heart racing very fast.. According to the patient he had ran out of his inhalers at home and states that his breathing became severe and for this reason he called EMS to be brought to the hospital. There is no EMS documentation in the chart. EKG on arrival here showed a sustained ventricular tachycardia, shortly after arrival patient converted to normal sinus rhythm, again within 1 minute patient went back into sustained ventricular tachycardia. He was given an amiodarone bolus and started on amiodarone drip. Patient was taken to the cardiac catheterization lab yesterday by Dr. Rivers where he underwent successful stenting of the proximal RCA leg using a science stent. Patient was also found to have a tight lesion in the ostial OM. She was seen and examined this morning , he was quite eager to be discharged home today. We had a lengthy discussion with this patient explaining that he would need to have intervention of the OM done, and this would be recommended to be done prior to discharge. Dr. Rivers said he could perform the procedure this afternoon after office and patient agrees. BUN 20 today, creatinine 0.8, potassium 4.4. At pressure 134/60 with a heart rate in the 60s. EKG performed this morning shows significant T-wave inversion in the lateral leads. No ventricular ectopy has been noted on the monitor. Objective - Vital Signs Vital signs: Vital Signs Temp 97.0 F L 03/06/17 08:00 Pulse 76 03/06/17 12:58 Resp 16 03/06/17 12:00 BP 135/67 03/06/17 12:00 Pulse Ox 94 L 03/06/17 12:00 Intake & Output 03/05/17 03/06/17 03/06/17 18:59 06:59 18:59 Intake Total 1720 1920 640 Output Total 450 1050 Balance 1270 870 640 Weight 82.1 kg Intake: IV 140 Intake, IV Titration 400 1200 Amount Sodium Chloride 0.9% 1, 400 1200 000 ml @ 100 mls/hr IV . Q10H [facility] Rx#:[id number] Oral 1180 720 640 Output: Urine 450 1050 Other: Voiding Method Toilet Toilet Urinal Urinal # Voids 2 - Exam PHYSICAL EXAMINATION: HEENT: Head is atraumatic, normocephalic. Pupils equal, round. Neck is supple. There is no elevated jugular venous pressure. HEART EXAMINATION: Heart S1, S2 normal. No murmur or gallop heard. CHEST EXAMINATION: Lungs are clear with mild decreased air exchange throughout. ABDOMEN: Soft, nontender. Bowel sounds are heard. No organomegaly noted. EXTREMITIES: 2+ peripheral pulses with no evidence of peripheral edema and no calf tenderness noted. Right radial site clean and dry, good distal pulse. NEUROLOGIC patient is awake, alert and oriented -3. . - Labs CBC & Chem 7: 03/06/17 05:57 03/06/17 05:57 Labs: Abnormal Lab Results - Last 24 Hours (Table) 03/05/17 03/05/17 03/06/17 Range/Units 17:23 20:30 05:57 WBC 18.1 H (3.8-10.6) k/uL Neutrophils # 16.4 H (1.3-7.7) k/uL Glucose (74-99) mg/dL POC Glucose (mg/dL) 103 H 162 H (75-99) mg/dL 03/06/17 03/06/17 03/06/17 Range/Units 05:57 06:48 11:20 WBC (3.8-10.6) k/uL Neutrophils # (1.3-7.7) k/uL Glucose 126 H (74-99) mg/dL POC Glucose (mg/dL) 130 H 190 H (75-99) mg/dL Assessment and Plan Plan: Assessment and plan #1 sustained ventricular tachycardia on a non-Q-wave AK #2 severe shortness of breath, decreased secondary to exacerbation of COPD #3 known history of coronary artery disease with prior circumflex stenting #4 severe PAD with prior peripheral bypass #5 nicotine dependence #6 COPD #7 hypertension #8 hyperlipidemia Plan Patient underwent stent placement of the right coronary artery. He will be scheduled later today to undergo stenting of the proximal OM. We'll continue to follow. DNP note has been reviewed, I agree with a documented findings and plan of care. Patient was seen and examined.
[2017-03-06 16:18] LABS: Glucose,Whole Blood 165 mg/dL (75-99)
[2017-03-06] MEDS ORDERED: IV FLUID CONTINUATION 1,000 ML IV ONE (18:03)
[2017-03-06] MEDS ORDERED: VERAPAMIL 2.5 MG/ML 2 ML AMP ONE (18:23)
[2017-03-06] MEDS ORDERED: fentaNYL (PF) 50 MCG/ML 2 ML AMP ONE (18:23)
[2017-03-06] MEDS ORDERED: MIDAZOLAM 2 MG/2 ML VIAL ONE ×2 (18:24→18:55)
[2017-03-06] MEDS ORDERED: LIDOCAINE 2% INJ 20 MG/ML (20 ML MDV) ONE (18:26)
[2017-03-06] MEDS ORDERED: HEPARIN SODIUM 1,000 UNIT/ML VIAL ONE (18:26)
[2017-03-06] MEDS ORDERED: fentaNYL (PF) 50 MCG/ML 2 ML AMP IV ONE (18:34)
[2017-03-06] MEDS ORDERED: MIDAZOLAM 2 MG/2 ML VIAL IV ONE ×2 (18:37→18:58)
[2017-03-06] MEDS ORDERED: LIDOCAINE 2% INJ 20 MG/ML SQ ONE (18:41)
[2017-03-06] MEDS ORDERED: BIVALIRUDIN 250 MG in SODIUM CHLORIDE 0.9% 50 ML IV ONE ×2 (18:43→19:35)
[2017-03-06] MEDS: VERAPAMIL SYRINGE (5 MG/10 ML) INTRAARTER ONE ×2 (18:43→20:01)
[2017-03-06] MEDS ORDERED: BIVALIRUDIN BOLUS 250 MG/50 ML IV ONE (18:43)
[2017-03-06] MEDS ORDERED: diphenhydrAMINE 50 MG/ML 1 ML VIAL ONE (19:01)
[2017-03-06] MEDS ORDERED: diphenhydrAMINE 50 MG/ML 1 ML VIAL IVP ONE (19:05)
[2017-03-06] MEDS: NITROGLYCERIN 1000MCG/10ML SYRINGE INTRACORON ONE ×3 (19:33→19:59)
[2017-03-06] MEDS: niCARdipine Syringe (1,000 mcg/10 mL) INTRACORON ONE ×2 (19:33→19:58)
[2017-03-06] MEDS ORDERED: HYDROmorphone 2 MG/ML 1 ML SYRINGE ONE (19:37)
[2017-03-06] MEDS ORDERED: HYDROmorphone 2 MG/ML 1 ML SYRINGE IVP ONE (19:39)
[2017-03-06] MEDS ORDERED: METOPROLOL TARTRATE 5 MG/5 ML VIAL IVP ONE (19:51)
[2017-03-06] MEDS: METOPROLOL TARTRATE 5 MG/5 ML VIAL IVP ONE ×2 (19:53→19:57)
[2017-03-06] MEDS ORDERED: CLOPIDOGREL 75 MG TAB ONE (20:01)
[2017-03-06] MEDS ORDERED: IOHEXOL 350 MG/ML 125ML BOTTLE INJ ONE (20:04)
[2017-03-06] MEDS ORDERED: CLOPIDOGREL 75 MG TAB PO ONE (20:04)
[2017-03-06] MEDS ORDERED: ZOLPIDEM 5 MG TAB PO PRN (20:05)
[2017-03-06] MEDS ORDERED: ATROPINE SULFATE 0.1 MG/ML 10ML SYRINGE IV PRN (20:05)
[2017-03-06] MEDS ORDERED: RX INFO: IV CONTRAST WAS GIVEN 1 EACH MISC MISCELLANE PRN (20:05)
[2017-03-06] MEDS ORDERED: MAG HYDROX/AL HYDROX/SIMETH 30 ML CUP PO PRN (20:05)
[2017-03-06] MEDS ORDERED: SODIUM CHLORIDE 0.9% 1,000 ML IV SCH (20:15)
[2017-03-06 20:36] LABS: Glucose,Whole Blood 113 mg/dL (75-99)
[2017-03-06] MEDS: predniSONE 20 MG TAB PO SCH (20:59)
[2017-03-06] MEDS: ATORVASTATIN 80 MG TAB PO SCH (21:00)
[2017-03-06] MEDS ORDERED: methylPREDNISolone SOD SUCCI 40 MG/ML 1 ML VIAL IV SCH (21:00)
[2017-03-07 05:34] LABS: Glucose,Whole Blood 120 mg/dL (75-99)
[2017-03-07] MEDS: INSULIN LISPRO (humaLOG) 300 UNIT/3 ML VIAL SQ SCH (06:42)
[2017-03-07 06:54] LABS: Basophils % (A) 0 %; CH 32.5; CHCM 32.6; Eosinophils % (A) 0 %; HCT 42.1 % (39.0-53.0); HDW 2.35; HGB 13.4 gm/dL (13.0-17.5); Luc % (Auto) 1; Lymphocytes # (A) 1.1 k/uL (1.0-4.8); Lymphocytes % (A) 6 %; MCH 31.9 pg (25.0-35.0); MCHC 31.8 g/dL (31.0-37.0); MCV 100.3 fL (80.0-100.0); Mean Platelet Volume 7.2; Monocytes # (A) 0.8 k/uL (0-1.0); Monocytes % (A) 4 %; Neutrophils # (A) 15.7 k/uL (1.3-7.7); Neutrophils % (A) 89 %; RDW 12.9 % (11.5-15.5); WBC 17.7 k/uL (3.8-10.6); WBC (Perox) 18.73
[2017-03-07 07:07] LABS: Anion Gap 5 mmol/L; Blood Urea Nitrogen 19 mg/dL (9-20); Calcium 8.5 mg/dL (8.4-10.2); Carbon Dioxide 28 mmol/L (22-30); Chloride 105 mmol/L (98-107); Glucose 100 mg/dL (74-99); Non-African American GFR(MDRD) >60 (>60 ml/min/1.73 sqM); Potassium 4.3 mmol/L (3.5-5.1); Sodium 138 mmol/L (137-145)
--- NOTE | 2017-03-07 07:24 | PN ---
DATE OF SERVICE: 03/06/2017 PRESENTING COMPLAINT: Shortness of breath. INTERVAL HISTORY: This is a 66-year-old patient who presented to the emergency room on 03/04/2017 with shortness of breath for the previous 2 days. Patient was found to be in wide complex tachycardia. Cardiology was consulted and recommended a cardiac catheterization for which he had that procedure on 03/05/2017. Patient is awake, alert jovial, talking, no acute distress noted, looking comfortable, asking about going home today. Review of systems done for constitutional, cardiovascular, GI, pulmonary with relevant findings as above. CURRENT MEDICATIONS: DuoNeb, aspirin, atropine, Lipitor, Plavix, Solu-Medrol. PHYSICAL EXAM: VITAL SIGNS: Temperature is 97.1, pulse 60, respirations 16, blood pressure 120/56, oxygen saturation 94% on room air. GENERAL APPEARANCE: Patient is somewhat unkempt, lying in bed. No acute distress, looking comfortable. EYES: Pupils equal. Conjunctivae are normal. NECK: JVD not raised. Mass not palpable. Respiratory effort normal. LUNGS: Diminished breath sounds bilaterally, prolonged expiration and wheezing noted. CARDIOVASCULAR: S1, S2 noted. No edema. Abdomen is soft, nontender. Liver and spleen not palpable. PSYCHIATRY: Alert and oriented x3. Mood and affect slightly anxious-appearing, yet jovial with interactions. INVESTIGATIONS: Accu-Cheks continue to be followed. CK-MB elevated at 2.9, troponin elevated at 0.397. These labs are from 03/04/2017. White blood cell count from 03/06/2017 elevated at 18.1, improved from previous day, likely reactive to cardiac intervention. ASSESSMENT: 1. Acute severe chronic obstructive pulmonary disease exacerbation in a current smoker. 2. Right middle lobe pneumonia, suspect gram-negative organism. 3. Sustained ventricular tachycardia, could be from underlying acute ischemic event. Patient is status post cardiac catheterization on 03/05 scheduled for a second cardiac catheterization on 03/06 for a stent placement to the OM vessel. 4. Peripheral artery disease with prior intervention. 5. Restless leg syndrome. 6. Coronary artery disease with history of prior stent. 7. Chronic congestive heart failure with systolic dysfunction. Ejection fraction 20% to 25%, underlying coronary artery disease. 8. Gastroesophageal reflux disease. 9. Hyperlipidemia. 10. Rotator cuff injury. 11. Chronic nicotine dependence, patient is a smoker. PLAN: Per Cardiology's note from today 03/06/2017, patient is scheduled to return to the cardiac catheterization lab for a stent placement to the OM vessel. On 03/05/2017, a stent was placed to the right coronary artery. Discussed with the patient smoking habit and the necessity for him to stop. Patient again today is anxious to be discharged; however, explained the necessity of him to remain in the hospital while we complete the treatment plan for him. Patient is again agreeable to remain through today's procedure. Patient would like to leave tomorrow. History and physical was performed on the patient by me/the nurse practitioner and attending/Dr. Negron. The relevant points of the history/physical/diagnoses/plan were discussed and are as dictated above.
[2017-03-07] MEDS: IPRATROPIUM-ALBUTEROL 3 ML NEB INHALATION SCH ×2 (08:33→11:58)
[2017-03-07 08:59] VITALS: BP 125/65; PULSE 79; RESP 16; TEMP 97.3
[2017-03-07] MEDS: LISINOPRIL-HCTZ 10-12.5 MG 1 EACH TAB PO SCH (08:59)
[2017-03-07] MEDS: CLOPIDOGREL 75 MG TAB PO SCH (08:59)
[2017-03-07] MEDS: METOPROLOL TARTRATE 12.5 MG TAB PO SCH (08:59)
[2017-03-07] MEDS: ASPIRIN 81 MG CHEW PO SCH (08:59)
[2017-03-07] MEDS: SPIRONOLACTONE 25 MG TAB PO SCH (08:59)
[2017-03-07] MEDS: predniSONE 20 MG TAB PO SCH (08:59)
[2017-03-07] MEDS: NICOTINE 21MG/24HR PATCH TRANSDERM SCH (09:00)
--- NOTE | 2017-03-07 13:57 | PTCA ---
DATE OF SERVICE: March 06, 2017. PROCEDURE PERFORMED: 1. Atherectomy of the first obtuse marginal branch using the CSI rotational atherectomy device. 2. Successful stenting of the ostial/proximal first obtuse marginal branch of the left circumflex using 2.5 x 23 and 2.25 x 12 mm Xience LUPE with good angiographic results. INDICATION: This is a pleasant 66-year-old gentleman who was admitted to the hospital with acute non-ST elevation myocardial infarction and was found to have severe cardiomyopathy as well as he was having cardiac in the term of V. tach. He underwent a heart catheterization and stenting of the RCA and he was brought today to undergo stenting of the first obtuse marginal branch of the left circumflex. Both were found to have severe disease during the first heart catheterization. Approach: The right radial artery. COMPLICATIONS: None. Level of sedation: Moderate with sedation length of about an hour and half. PROCEDURE DESCRIPTION: After obtaining an informed consent, the patient was brought to the cardiac company laborer. The right radial artery was cannulated using micropuncture technique. The micropuncture wire passed easily, then I placed 6 Urdu sheath in the right radial artery. Subsequently anticoagulation was initiated using Angiomax with bolus and drip per protocol. After that, I did engage the left main using JL 3.5 guiding catheter. I wired the first obtuse marginal branch using a whisper wire. I attempted initially crossing that lesion using 20 x 12 mm balloon but the balloon would not cross. I switched 1.5 mm balloon and the balloon would not cross. At that point I tried even using a musa wire, and the balloon will not cross. I decided at that point to do atherectomy of the first OM. So I did exchange my Whisper wire into ViperWire using fine cross catheter. After that, I did 3 runs of rotation atherectomy using the CSI rotation atherectomy device. Subsequently, I did balloon angioplasty using 20 x 12 mm balloon. After that, I did deploy 2 stents. The first stent, which was in the proximal portion of the first obtuse marginal branch was 2.25 x 23 and the second stent was in the very proximal portion was 2.25 x 12 mm. Both stents were deployed under 12 atmospheres for 20 seconds with about 2 mm overlap between the 2 stents. The following angiogram showed a good angiographic results. I did post dilate using 2.75 mm NC balloon. The procedure was completed without any complication. POSTPROCEDURE MANAGEMENT: 1. Dual antiplatelet therapy. 2. Risk factor modifications. 3. Follow up with the patient.
--- NOTE | 2017-03-07 14:45 | P.PN ---
Subjective Principal diagnosis: Non-Q-wave CT/sustained VT s a 66-year-old gentleman with history of hypertension, hyperlipidemia , coronary artery disease with prior circumflex stenting, severe PAD with prior peripheral bypass, the OPD, nicotine dependence, who follows with Dr. Oden as an outpatient. Patient presents to the hospital with symptoms of severe difficulty in breathing, patient states he also felt his heart racing very fast.. According to the patient he had ran out of his inhalers at home and states that his breathing became severe and for this reason he called EMS to be brought to the hospital. There is no EMS documentation in the chart. EKG on arrival here showed a sustained ventricular tachycardia, shortly after arrival patient converted to normal sinus rhythm, again within 1 minute patient went back into sustained ventricular tachycardia. He was given an amiodarone bolus and started on amiodarone drip. Patient was taken to the cardiac catheterization lab yesterday by Dr. Rivers where he underwent successful stenting of the proximal RCA, yesterday afternoon patient underwent angioplasty with stenting of the OM. EKG showed normal sinus rhythm with lateral T-wave inversion. Overall patient was feeling well, denies any chest pain or difficulty in breathing. LifeVest was ordered for the patient for prevention of sudden cardiac . Follow-up appointment will be made with Dr. Rivers in the office in one week. Objective - Vital Signs Vital signs: Vital Signs Temp 97.3 F L 03/07/17 08:00 Pulse 78 03/07/17 08:43 Resp 16 03/07/17 08:00 BP 125/65 03/07/17 08:00 Pulse Ox 96 03/07/17 08:00 Intake & Output 03/06/17 03/07/17 03/07/17 18:59 06:59 18:59 Intake Total 1315 1296 118 Output Total 1600 Balance 1315 -304 118 Weight 82 kg Intake: IV 435 16 Intake, IV Titration 0 800 Amount Sodium Chloride 0.9% 1, 800 000 ml @ 100 mls/hr IV . Q10H [facility] Rx#:[id number] Sodium Chloride 0.9% 1, 0 000 ml In Empty Bag 1 bag @ 1 ML/KG/HR 82.1 mls/hr IV .[id number] ONE Rx#: [id number] Oral 880 480 118 Output: Urine 1600 Other: Voiding Method Toilet Urinal # Voids 2 - Exam PHYSICAL EXAMINATION: HEENT: Head is atraumatic, normocephalic. Pupils equal, round. Neck is supple. There is no elevated jugular venous pressure. HEART EXAMINATION: Heart S1, S2 normal. No murmur or gallop heard. CHEST EXAMINATION: Lungs are clear with mild decreased air exchange throughout. ABDOMEN: Soft, nontender. Bowel sounds are heard. No organomegaly noted. EXTREMITIES: Right radial site remained dry good distal pulse. 2+ peripheral pulses with no evidence of peripheral edema and no calf tenderness noted. Right radial site clean and dry, good distal pulse. NEUROLOGIC patient is awake, alert and oriented -3. . - Labs CBC & Chem 7: 03/07/17 06:04 03/07/17 06:04 Labs: Abnormal Lab Results - Last 24 Hours (Table) 03/06/17 03/06/17 03/07/17 Range/Units 16:16 20:35 05:33 WBC (3.8-10.6) k/uL RBC (4.30-5.90) m/uL MCV (80.0-100.0) fL Neutrophils # (1.3-7.7) k/uL Glucose (74-99) mg/dL POC Glucose (mg/dL) 165 H 113 H 120 H (75-99) mg/dL 03/07/17 03/07/17 Range/Units 06:04 06:04 WBC 17.7 H (3.8-10.6) k/uL RBC 4.20 L (4.30-5.90) m/uL MCV 100.3 H (80.0-100.0) fL Neutrophils # 15.7 H (1.3-7.7) k/uL Glucose 100 H (74-99) mg/dL POC Glucose (mg/dL) (75-99) mg/dL Assessment and Plan Plan: Assessment and plan #1 sustained ventricular tachycardia on a non-Q-wave CT #2 severe shortness of breath, decreased secondary to exacerbation of COPD #3 known history of coronary artery disease with prior circumflex stenting #4 severe PAD with prior peripheral bypass #5 nicotine dependence #6 COPD #7 hypertension #8 hyperlipidemia Plan Patient underwent stent placement of the right coronary artery and the OM. Life Vest has been ordered for the patient for prevention of sudden cardiac . The patient may be able to be discharged home today. We will make him a follow-up appointment to see Dr. Rivers in the office post discharge. Patient has been instructed regarding the importance of taking all of his medications regularly DNP note has been reviewed, I agree with a documented findings and plan of care. Patient was seen and examined.
--- NOTE | 2017-03-09 08:28 | DS ---
DATE OF ADMISSION: 03/04/2017 DATE OF DISCHARGE: 03/07/2017 FINAL DIAGNOSIS(ES): 1. Acute severe chronic obstructive pulmonary disease exacerbation in a current smoker, present at admission. 2. Right middle lobe pneumonia, suspect gram-negative organism, present on admission. 3. Sustained ventricular tachycardia, from underlying coronary artery disease. 4. Peripheral artery disease with prior intervention. 5. Restless leg syndrome. 6. Coronary artery disease with history of prior stent. 7. Chronic congestive heart failure with systolic dysfunction; ejection fraction and 20-25%, underlying coronary artery disease. 8. Gastroesophageal reflux disease. 9. Hyperlipidemia. 10. Chronic rotator cuff injury. 11. Chronic nicotine dependence. Patient is a smoker. 12. Cardiac catheterization with intervention. PROCEDURE PERFORMED: 1. Atherectomy of the first obtuse marginal branch using CSI rotational atherectomy device. 2. Successful stenting of the ostial proximal first obtuse marginal of the left circumflex. 3. Successful stenting of the proximal right coronary artery using a drug-eluting stent. HOSPITAL COURSE: This is a smoker, presented rather severely short of breath, found to have both pneumonia, and COPD exacerbation, responded well to antibiotics, nebulized bronchodilators, steroids. Also had a run of V. tach, cardiac catheterization found to have the above abnormalities. Intervention carried out by Dr. Jacob. Patient's 2-D echocardiogram EF of 20% to 25% with multiple wall motion abnormalities. The patient is rather adamant about going back to smoking. Yet again he ( ) not to go back to smoking. CONSULTATIONS: Dr. Arcos from cardiology; Dr. Jacob for interventional Cardiology. The patient doing much better the time of discharge. On examination, LUNGS: Improved air entry, mild wheezing. CARDIOVASCULAR: First and second seconds normal. DISCHARGE MEDICATIONS: 1. Requip 2 mg p.o. q.h.s. 2. ProAir 2 puffs q.6 p.r.n. 3. ( ) Ellipta 1 puff daily. 4. Percocet 10, 1 tablet q.4 p.r.n. 5. Aspirin 81 mg daily. 6. Lipitor 80 mg p.o. q.h.s. 7. Plavix 75 mg p.o. daily. 8. Duoneb Q.2 p.r.n. 9. DuoNeb q.i.d. 10. Zestoretic 20/12.5, 1 tablet p.o. daily. 11. Lopressor 12.5 p.o. b.i.d. 12. Nicotine patch daily. 13. Nitrostat 0.4 sublingual q.5 p.r.n. 14. Prednisone taper. Follow up with Dr. Jacob on 03/14/17. Follow up with Dr. Neo Oden on 03/10/17. Discharge planning more than 35 minutes.
--- NOTE | 2017-04-02 22:50 | PN ---
DATE OF SERVICE: 03/06/2017 ATTENDING NOTE: This patient was seen and examined by me on 03/06/2017. I reviewed the note of my nurse practitioner, Ms. Marquez. I agreed and discussed with the same. Patient was admitted with V. tach. Cardiac catheterization was done. Patient is doing better, a little more comfortable. On examination, blood pressure 120/56, pulse ox 94% on room air. Decreased breath sounds on expiration, wheezing. CARDIOVASCULAR: First and second sounds normal. No edema. PSYCH: Awake. ASSESSMENT: 1. Severe chronic obstructive pulmonary disease exacerbation. 2. Right middle lobe pneumonia, suspect gram- negative organism. 3. Sustained ventricular tachycardia. 4. Cardiac catheterization revealing coronary artery disease with stent to the OR. PLAN: Continue current medication and treatment plan. Patient again advised against smoking. Care was discussed.
--- NOTE | 2017-04-04 07:14 | PN ---
DATE OF SERVICE: 03/05/2017 ATTENDING NOTE: This patient was seen and examined by me on 03/05/2017. I reviewed the note of my nurse practitioner Ms. Marquez. I agreed and discussed with her. Patient presented with COPD exacerbation, pneumonia and V. tach. Patient is more comfortable. On examination, blood pressure 105/55, pulse ox 97% on 2 L. Patient is lying in bed, not in distress. LUNGS: Decreased breath sounds. Some expiratory wheezing. CARDIOVASCULAR: First and second sounds normal. No edema. ABDOMEN: Soft, nontender. ASSESSMENT: 1. Acute chronic obstructive pulmonary disease exacerbation in a smoker. 2. Right middle lobe pneumonia, suspect gram-negative organism. 3. Ventricular tachycardia, could be underlying acute ischemic event. 4. Coronary artery disease with prior history of stent. Patient had a cardiac catheterization possibly stent placed to the RCA. Counseled against smoking. Somewhat anxious to go home.
== END 2017-03-07 11:59 | disposition home or self-care (01) | DRG 246 ==
LOC: EC 01:06 → 6SEL 02:36
PROVIDERS: ADMIT Hospitalist; ATTEND Hospitalist
PROC: 4A023N7 Measurement of Cardiac Sampling and Pressure, Left Heart, Percutaneous Approach (ICD-10-PCS; 2017-03-05)
PROC: B2111ZZ Fluoroscopy of Multiple Coronary Arteries using Low Osmolar Contrast (ICD-10-PCS; 2017-03-05)
PROC: B2151ZZ Fluoroscopy of Left Heart using Low Osmolar Contrast (ICD-10-PCS; 2017-03-05)
PROC: 027034Z Dilation of Coronary Artery, One Artery with Drug-eluting Intraluminal Device, Percutaneous Approach (ICD-10-PCS; principal; 2017-03-05 10:42)
PROC: 027034Z Dilation of Coronary Artery, One Artery with Drug-eluting Intraluminal Device, Percutaneous Approach (ICD-10-PCS; 2017-03-06)
PROC: X2C0361 Extirpation of Matter from Coronary Artery, One Artery using Orbital Atherectomy Technology, Percutaneous Approach, New Technology Group 1 (ICD-10-PCS; 2017-03-06)
PROC: 4A023N7 Measurement of Cardiac Sampling and Pressure, Left Heart, Percutaneous Approach (ICD-10-PCS; 2017-03-06)
PROC: B2101ZZ Fluoroscopy of Single Coronary Artery using Low Osmolar Contrast (ICD-10-PCS; 2017-03-06)
DX: I21.4 Non-ST elevation (NSTEMI) myocardial infarction (principal); J15.6 Pneumonia due to other Gram-negative bacteria; I11.0 Hypertensive heart disease with heart failure; I47.2 Ventricular tachycardia; I50.22 Chronic systolic (congestive) heart failure; I42.9 Cardiomyopathy, unspecified; J44.0 Chronic obstructive pulmonary disease with (acute) lower respiratory infection; J44.1 Chronic obstructive pulmonary disease with (acute) exacerbation; I73.9 Peripheral vascular disease, unspecified; I25.10 Atherosclerotic heart disease of native coronary artery without angina pectoris; T44.5X6A Underdosing of predominantly beta-adrenoreceptor agonists, initial encounter; E78.5 Hyperlipidemia, unspecified; S46.002S Unspecified injury of muscle(s) and tendon(s) of the rotator cuff of left shoulder, sequela; R53.1 Weakness; F12.90 Cannabis use, unspecified, uncomplicated; R06.2 Wheezing; F17.200 Nicotine dependence, unspecified, uncomplicated; M54.30 Sciatica, unspecified side; M25.551 Pain in right hip; E78.00 Pure hypercholesterolemia, unspecified; M25.552 Pain in left hip; G25.81 Restless legs syndrome; K21.9 Gastro-esophageal reflux disease without esophagitis; Z95.5 Presence of coronary angioplasty implant and graft; Z83.3 Family history of diabetes mellitus; Z82.49 Family history of ischemic heart disease and other diseases of the circulatory system; Z79.899 Other long term (current) drug therapy; Z79.02 Long term (current) use of antithrombotics/antiplatelets; I25.2 Old myocardial infarction; Z71.6 Tobacco abuse counseling; Z79.82 Long term (current) use of aspirin; Z79.891 Long term (current) use of opiate analgesic; Z79.51 Long term (current) use of inhaled steroids; Z90.49 Acquired absence of other specified parts of digestive tract; Z86.718 Personal history of other venous thrombosis and embolism; Z87.828 Personal history of other (healed) physical injury and trauma; Z83.6 Family history of other diseases of the respiratory system
CPT/HCPCS: 36415; 71020; 80048; 80053; 82550; 82553; 83036; 83735; 84484; 85025; 85610; 85730; 93005; 93306; 93458; 94640; 94760; 96365; 96376; 99291

== ENCOUNTER 2018-03-16 02:38 | Inpatient (IN) | payer MEDICARE, OTHER ==
[2018-03-16] MEDS ORDERED: MORPHINE SULFATE 4 MG/ML SYRINGE IVP PRN (02:52)
[2018-03-16] MEDS ORDERED: MORPHINE SULFATE 4 MG/ML SYRINGE IVP STA (02:52)
[2018-03-16] MEDS ORDERED: SUCCINYLCHOLINE CHLORIDE VIAL 200 MG/10 ML VIAL IV STA (02:53)
[2018-03-16] MEDS ORDERED: ETOMIDATE 2 MG/ML 10 ML VIAL IVP STA (02:53)
[2018-03-16 02:56] LABS: Basophils # (A) 0.1 k/uL (0-0.2); Basophils % (A) 1 %; Eosinophils # (A) 0.2 k/uL (0-0.7); Eosinophils % (A) 1 %; HCT 53.2 % (39.0-53.0); HGB 16.9 gm/dL (13.0-17.5); Lymphocytes # (A) 4.4 k/uL (1.0-4.8); Lymphocytes % (A) 28 %; MCH 32.1 pg (25.0-35.0); MCHC 31.8 g/dL (31.0-37.0); MCV 100.9 fL (80.0-100.0); Mean Platelet Volume 8.3; Monocytes # (A) 0.8 k/uL (0-1.0); Monocytes % (A) 5 %; Neutrophils # (A) 9.8 k/uL (1.3-7.7); Neutrophils % (A) 63 %; Platelet Count 250 k/uL (150-450); RBC 5.27 m/uL (4.30-5.90); RDW 13.3 % (11.5-15.5); WBC 15.6 k/uL (3.8-10.6)
[2018-03-16 03:00] LABS: Glucose,Whole Blood 340 mg/dL (75-99)
[2018-03-16] MEDS: PROPOFOL 1,000 MG in EMPTY BAG 1 BAG IV SCH ×4 (03:14→16:55)
[2018-03-16 03:16] LABS: Albumin 4.6 g/dL (3.5-5.0); Calcium 9.5 mg/dL (8.4-10.2); Potassium 4.8 mmol/L (3.5-5.1); Total Bilirubin 0.6 mg/dL (0.2-1.3); Total Protein 7.5 g/dL (6.3-8.2)
--- NOTE | 2018-03-16 03:16 | XR ---
EXAMINATION TYPE: XR chest 1V confirm line [facility] DATE OF EXAM: 03/16/2018 COMPARISON: 03/04/2017 HISTORY: Difficulty breathing. Intubation. TECHNIQUE: Single frontal view of the chest is obtained. FINDINGS: Endotracheal tube appears in good position. There is pulmonary edema. There is slight blun ting of costophrenic angles. There are chest leads. IMPRESSION: Endotracheal tube appears in good position. There is apparent new congestive heart failu re compared to last exam.
[2018-03-16 03:37] LABS: Troponin I 0.016 ng/mL (0.000-0.034)
[2018-03-16 03:39] LABS: Creatine Kinase MB 5.1 ng/mL (0.0-2.4)
[2018-03-16 03:46] LABS: ABG Base Excess -6.4 mmol/L; ABG HCO3 24 mmol/L (21-25); ABG Oxygen Saturation 99.1 % (94-97); ABG PO2 >400 mmHg (83-108); ABG TCO2 27 mmol/L (19-24)
[2018-03-16] MEDS ORDERED: LORazepam 2 MG/ML INJ IV STA ×2 (04:06→05:15)
[2018-03-16 04:08] LABS: ABG PCO2 85 mmHg (35-45); ABG PH 7.06 (7.35-7.45)
[2018-03-16] MEDS ORDERED: WATER IV STA (04:30)
[2018-03-16] MEDS ORDERED: DEXTROSE IV STA (04:30)
[2018-03-16] MEDS ORDERED: NITROGLYCERIN IV STA (04:30)
[2018-03-16] MEDS ORDERED: ENOXAPARIN 100 MG/ML SYRINGE SQ STA (04:57)
[2018-03-16] MEDS ORDERED: RX INFO: IV CONTRAST WAS GIVEN 1 EACH MISC MISCELLANE PRN ×2 (05:00→06:28)
--- NOTE | 2018-03-16 05:04 | XR ---
EXAM: XR Chest, 1 View CLINICAL HISTORY: ITS.REASON XR Reason: Pain TECHNIQUE: Frontal view of the chest. COMPARISON: 03/16/18 performed at 0307 hrs. FINDINGS: Lungs: Partial silhouetting of the left hemidiaphragm due to a retrocardiac infiltrate. Pleural space: Unremarkable. No pneumothorax. Heart: Unremarkable. No cardiomegaly. Mediastinum: Unremarkable. Bones/joints: Unremarkable. Tubes, lines and devices: Interval insertion of NG tube which is entering the stomach. Endotracheal tube tip is 8.7 cm above the dino. IMPRESSION: 1. Interval insertion of NG tube which is entering the stomach. 2. Endotracheal tube has pulled back slightly and is now located 8.7 cm above the dino. 3. Retrocardiac infiltrate. Considering timeframe, this may be subsegmental atelectasis. Correlate clinically.
[2018-03-16] MEDS ORDERED: ARTIFICIAL TEARS-HYPROMELLOSE DROPS 15 ML BTL BOTH EYES PRN (05:29)
[2018-03-16] MEDS ORDERED: NALOXONE 0.4 MG/ML 1 ML VIAL IV PRN (05:29)
[2018-03-16] MEDS ORDERED: ACETAMINOPHEN SUPPOSITORY 650 MG SUPP RECTAL PRN (05:29)
[2018-03-16] MEDS ORDERED: ALBUTEROL NEBULIZED 2.5 MG/3 ML INHALATION PRN (05:33)
[2018-03-16] MEDS ORDERED: oxyCODONE-APAP 10-325MG 1 EACH TAB PO PRN (05:33)
[2018-03-16] MEDS ORDERED: methylPREDNISolone SOD SUCCI 125 MG/2 ML VIAL IV SCH (05:45)
--- NOTE | 2018-03-16 06:25 | ED ---
SOB HPI - General Chief Complaint: Shortness of Breath Stated Complaint: SYBIL Source: EMS Mode of arrival: EMS Limitations: language barrier, physical limitation (Severe dyspnea) - History of Present Illness Initial Comments: This patient is 67-year-old man presenting by ambulance or severe dyspnea. EMS reports that the patient himself had phoned, and when they arrived they found him in respiratory distress not able to give much history. They placed the patient on CPAP, administered inhaled albuterol, and did give IV steroid. On arrival, the patient is mainly only able to respond with yes or no. The patient is denying chest or abdominal pain. He does indicate that the shortness of breath developed very quickly. Otherwise not able to provide provide much history due to severe dyspnea. MD Complaint: shortness of breath -: unknown Improves With: nothing Worsens With: nothing Known History Of: COPD Treatments Prior to Arrival: none - Related Data Home Medications Medication Instructions Recorded Confirmed rOPINIRole HCL [Requip] 2 mg PO HS 10/08/14 03/04/17 Albuterol Sulfate [Proair Hfa] 2 puff INHALATION RT-Q6H PRN 03/04/17 03/04/17 Umeclidinium [place] [Incruse 1 puff INHALATION RT-DAILY 03/04/17 03/04/17 Ellipta] oxyCODONE-APAP 10-325MG [Percocet 1 tab PO Q4H PRN 03/04/17 03/04/17 10-325 mg] Previous Rx's Medication Instructions Recorded Aspirin 81 mg PO DAILY #30 chew 03/07/17 Atorvastatin [Lipitor] 80 mg PO HS #30 tab 03/07/17 Clopidogrel [Plavix] 75 mg PO DAILY #30 tab 03/07/17 Ipratropium-Albuterol Nebulize 3 ml INHALATION RT-Q2H PRN #0 03/07/17 [Duoneb 0.5 mg-3 mg/3 ml Soln] ampul.neb Ipratropium-Albuterol Nebulize 3 ml INHALATION RT-QID ampul.neb 03/07/17 [Duoneb 0.5 mg-3 mg/3 ml Soln] Lisinopril-Hctz 20-12.5 mg 1 tab PO DAILY #30 tab 03/07/17 [Zestoretic 20-12.5] Metoprolol Tartrate [Lopressor] 12.5 mg PO BID #60 tab 03/07/17 Nicotine 21Mg/24Hr Patch [Habitrol] 1 patch TRANSDERM DAILY #30 patch 03/07/17 Nitroglycerin Sl Tabs [Nitrostat] 0.4 mg SUBLINGUAL Q5M PRN #25 tab 03/07/17 predniSONE 10 mg PO DAILY #30 tab 03/07/17 Allergies Allergy/AdvReac Type Severity Reaction Status Date / Time No Known Allergies Allergy Verified 03/04/17 07:58 Review of Systems ROS Statement: Those systems with pertinent positive or pertinent negative responses have been documented in the HPI. ROS Other: All systems not noted in ROS Statement are negative. Limitations: ROS unobtainable due to patients medical condition (Severe dyspnea) Respiratory: Reports: dyspnea Cardiovascular: Denies: chest pain Past Medical History Past Medical History: Coronary Artery Disease (CAD), Heart Failure, COPD, Deep Vein Thrombosis (DVT), GERD/Reflux, Hyperlipidemia, Hypertension, Myocardial Infarction (MN), Vascular Disorder Additional Past Medical History / Comment(s): 12/01/14 Pt admitted to floor s/p R fem fem bypass. Other HX: MN's x 11 SEP 2014, CHF, RESTLESS LEG SYNDROME, SEVERE RT FOOT PAIN R/T POOR CIRCULTION, SCIATICA PAIN, LEFT ROTATOR CUFF INJURY. BILATERAL HIP PAIN Last Myocardial Infarction Date:: 10/08/14 History of Any Multi-Drug Resistant Organisms: None Reported Past Surgical History: Appendectomy, Bowel Resection, Heart Catheterization With Stent, Hernia Repair Additional Past Surgical History / Comment(s): 12/01/14 R femfem bypass, Abdominal aortagram with bilateral extremity, HEART CATH WITH STENT SEP 2014 , HERNIA SURG X3. Past Anesthesia/Blood Transfusion Reactions: No Reported Reaction Date of Last Stent Placement:: 2013 Past Psychological History: No Psychological Hx Reported Smoking Status: Current every day smoker Past Alcohol Use History: None Reported Past Drug Use History: Marijuana - Past Family History Mother Family Medical History: Chest Pain / Angina, Diabetes Mellitus, Hypertension, Myocardial Infarction (MN) Additional Family Medical History / Comment(s): Mother of MN at age 84 yrs. Father Additional Family Medical History / Comment(s): Father had black lung disease. General Exam Limitations: language barrier General appearance: alert, in distress Head exam: Present: atraumatic, normocephalic Eye exam: Present: normal appearance, PERRL, EOMI. Absent: scleral icterus, conjunctival injection ENT exam: Present: normal oropharynx Respiratory exam: Present: respiratory distress, wheezes, accessory muscle use. Absent: rales, rhonchi, stridor, decreased breath sounds, prolonged expiratory Cardiovascular Exam: Present: normal rhythm, tachycardia, gallop. Absent: systolic murmur, diastolic murmur, rubs GI/Abdominal exam: Present: soft. Absent: distended, tenderness, guarding, rebound, rigid, mass Extremities exam: Present: normal inspection, normal capillary refill. Absent: pedal edema, calf tenderness Back exam: Present: normal inspection. Absent: CVA tenderness (R), CVA tenderness (L), vertebral tenderness Neurological exam: Present: alert. Absent: motor sensory deficit Psychiatric exam: Present: anxious Skin exam: Present: intact, diaphoretic, mottled. Absent: rash Course Vital Signs 03/16/18 03/16/18 03/16/18 02:42 02:44 02:47 Temperature Pulse Rate 157 H 158 H 156 H Respiratory 42 H 36 H 36 H Rate Blood Pressure 189/122 186/111 181/111 O2 Sat by Pulse 99 99 99 Oximetry 03/16/18 03/16/18 03/16/18 02:49 02:52 02:55 Temperature 97.0 F L Pulse Rate 156 H 152 H Respiratory 36 H 36 H Rate Blood Pressure 174/116 178/103 O2 Sat by Pulse 99 99 Oximetry 03/16/18 03/16/18 03/16/18 02:59 03:09 03:25 Temperature Pulse Rate 99 130 H 120 H Respiratory 34 H 34 H 32 H Rate Blood Pressure 177/107 148/88 109/66 O2 Sat by Pulse 99 99 98 Oximetry 03/16/18 03/16/18 03/16/18 03:30 03:37 03:40 Temperature Pulse Rate 119 H 128 H 116 H Respiratory 32 H 32 H 30 H Rate Blood Pressure 105/62 114/67 116/68 O2 Sat by Pulse 98 98 98 Oximetry 03/16/18 03/16/18 03/16/18 04:04 04:10 04:28 Temperature 98.8 F Pulse Rate 114 H 112 H Respiratory 32 H 30 H Rate Blood Pressure 107/63 96/53 O2 Sat by Pulse 99 98 Oximetry 03/16/18 03/16/18 03/16/18 04:35 04:44 04:45 Temperature Pulse Rate 102 H 110 H Respiratory 28 H 30 H Rate Blood Pressure 94/52 100/59 O2 Sat by Pulse 90 L 86 L 89 L Oximetry 03/16/18 03/16/18 03/16/18 04:56 05:10 05:25 Temperature Pulse Rate 110 H 110 H 100 Respiratory 28 H 28 H 28 H Rate Blood Pressure 91/57 94/59 99/60 O2 Sat by Pulse 97 97 99 Oximetry 03/16/18 05:56 Temperature Pulse Rate 96 Respiratory 28 H Rate Blood Pressure 98/62 O2 Sat by Pulse 97 Oximetry Procedures - Intubation Time Out Performed: Yes Sedative: Etomidate Paralytic: Succinylcholine Laryngoscope: Bettye Size: 3 ET Tube Size: 8 ET Tube Uncuffed: No Tube Secured Depth (cm): 23 Tube Secured Location: lips Tube Placement Confirmation: visualized tube passing through cords, equal breath sounds bilaterally, no breath sounds over epigastrium, confirmation by capnometry Patient Tolerated Procedure: well Intubation Complications: none - Restraint - Face to Face Restraint Occurrence 1 Patient's Immediate Situation: Endangers self safety Patient's Reaction to the Intervention: Restless, Resistive to care Patient's Medical & Behavioral Condition: Confused, Other (see comment) Need to Continue or Terminate Restraint or Seclusion: Continue Face to Face Eval of Restraint Date: 03/16/18 Face to Face Eval of Restraint Time: 03:25 Medical Decision Making - Medical Decision Making Patient is 67-year-old man arriving by ambulance in severe respiratory distress. They're not able to obtain much history but what he does provide and in combination with the exam very suggestive of hypertensive emergency with congestive heart failure. Patient's placed on BiPAP, I was also administering IV nitroglycerin and aliquots at the bedside. The patient however does not respond to this medication and does appear to be tiring, given the impending respiratory failure , discussed intubation and the patient does request to be intubated. Patient is intubated without complication see the procedure note. Following intubation, the patient's vital signs improve, pulse oxygenation numbers improve, patient's initial 12-lead EKG initially too much artifact due to respiratory motion, subsequent to the intubation, the 12-lead EKG does show sinus tachycardia rate of 122. No acute ST or T changes. There is suggestive old inferior infarct. - Lab Data Result diagrams: 03/16/18 02:43 03/16/18 02:43 Lab Results 03/16/18 03/16/18 03/16/18 Range/Units 02:43 02:43 02:43 WBC 15.6 H (3.8-10.6) k/uL RBC 5.27 (4.30-5.90) m/uL Hgb 16.9 (13.0-17.5) gm/dL Hct 53.2 H (39.0-53.0) % MCV 100.9 H (80.0-100.0) fL MCH 32.1 (25.0-35.0) pg MCHC 31.8 (31.0-37.0) g/dL RDW 13.3 (11.5-15.5) % Plt Count 250 (150-450) k/uL Neutrophils % 63 % Lymphocytes % 28 % Monocytes % 5 % Eosinophils % 1 % Basophils % 1 % Neutrophils # 9.8 H (1.3-7.7) k/uL Lymphocytes # 4.4 (1.0-4.8) k/uL Monocytes # 0.8 (0-1.0) k/uL Eosinophils # 0.2 (0-0.7) k/uL Basophils # 0.1 (0-0.2) k/uL D-Dimer (<0.60) mg/L FEU Sample Site ABG pH (7.35-7.45) ABG pCO2 (35-45) mmHg ABG pO2 (83-108) mmHg ABG HCO3 (21-25) mmol/L ABG Total CO2 (19-24) mmol/L ABG O2 Saturation (94-97) % ABG Base Excess mmol/L Russel Test FiO2 % Sodium 140 (137-145) mmol/L Potassium 4.8 (3.5-5.1) mmol/L Chloride 99 (98-107) mmol/L Carbon Dioxide 20 L (22-30) mmol/L Anion Gap 21 mmol/L BUN 9 (9-20) mg/dL Creatinine 1.00 (0.66-1.25) mg/dL Est GFR (CKD-EPI)AfAm 90 (>60 ml/min/1.73 sqM) Est GFR (CKD-EPI)NonAf 78 (>60 ml/min/1.73 sqM) Glucose 260 H (74-99) mg/dL POC Glucose (mg/dL) (75-99) mg/dL POC Glu Auto Glass Technician ID Lactic Ac Sepsis Rflx Plasma Lactic Acid Km (0.7-2.0) mmol/L Calcium 9.5 (8.4-10.2) mg/dL Total Bilirubin 0.6 (0.2-1.3) mg/dL AST 39 (17-59) U/L ALT 34 (21-72) U/L Alkaline Phosphatase 85 (38-126) U/L Total Creatine Kinase 327 H (55-170) U/L CK-MB (CK-2) 5.1 H* (0.0-2.4) ng/mL CK-MB (CK-2) Rel Index 1.6 Troponin I 0.016 (0.000-0.034) ng/mL NT-Pro-B Natriuret Pep pg/mL Total Protein 7.5 (6.3-8.2) g/dL Albumin 4.6 (3.5-5.0) g/dL 03/16/18 03/16/18 03/16/18 Range/Units 02:43 02:43 02:43 WBC (3.8-10.6) k/uL RBC (4.30-5.90) m/uL Hgb (13.0-17.5) gm/dL Hct (39.0-53.0) % MCV (80.0-100.0) fL MCH (25.0-35.0) pg MCHC (31.0-37.0) g/dL RDW (11.5-15.5) % Plt Count (150-450) k/uL Neutrophils % % Lymphocytes % % Monocytes % % Eosinophils % % Basophils % % Neutrophils # (1.3-7.7) k/uL Lymphocytes # (1.0-4.8) k/uL Monocytes # (0-1.0) k/uL Eosinophils # (0-0.7) k/uL Basophils # (0-0.2) k/uL D-Dimer 2.55 H (<0.60) mg/L FEU Sample Site ABG pH (7.35-7.45) ABG pCO2 (35-45) mmHg ABG pO2 (83-108) mmHg ABG HCO3 (21-25) mmol/L ABG Total CO2 (19-24) mmol/L ABG O2 Saturation (94-97) % ABG Base Excess mmol/L Russel Test FiO2 % Sodium (137-145) mmol/L Potassium (3.5-5.1) mmol/L Chloride (98-107) mmol/L Carbon Dioxide (22-30) mmol/L Anion Gap mmol/L BUN (9-20) mg/dL Creatinine (0.66-1.25) mg/dL Est GFR (CKD-EPI)AfAm (>60 ml/min/1.73 sqM) Est GFR (CKD-EPI)NonAf (>60 ml/min/1.73 sqM) Glucose (74-99) mg/dL POC Glucose (mg/dL) (75-99) mg/dL POC Glu Auto Glass Technician ID Lactic Ac Sepsis Rflx Plasma Lactic Acid Km 6.0 H* (0.7-2.0) mmol/L Calcium (8.4-10.2) mg/dL Total Bilirubin (0.2-1.3) mg/dL AST (17-59) U/L ALT (21-72) U/L Alkaline Phosphatase (38-126) U/L Total Creatine Kinase (55-170) U/L CK-MB (CK-2) (0.0-2.4) ng/mL CK-MB (CK-2) Rel Index Troponin I (0.000-0.034) ng/mL NT-Pro-B Natriuret Pep 4090 pg/mL Total Protein (6.3-8.2) g/dL Albumin (3.5-5.0) g/dL 03/16/18 03/16/18 03/16/18 Range/Units 02:50 03:30 03:32 WBC (3.8-10.6) k/uL RBC (4.30-5.90) m/uL Hgb (13.0-17.5) gm/dL Hct (39.0-53.0) % MCV (80.0-100.0) fL MCH (25.0-35.0) pg MCHC (31.0-37.0) g/dL RDW (11.5-15.5) % Plt Count (150-450) k/uL Neutrophils % % Lymphocytes % % Monocytes % % Eosinophils % % Basophils % % Neutrophils # (1.3-7.7) k/uL Lymphocytes # (1.0-4.8) k/uL Monocytes # (0-1.0) k/uL Eosinophils # (0-0.7) k/uL Basophils # (0-0.2) k/uL D-Dimer (<0.60) mg/L FEU Sample Site rrad ABG pH 7.06 L* (7.35-7.45) ABG pCO2 85 H* (35-45) mmHg ABG pO2 >400 H (83-108) mmHg ABG HCO3 24 (21-25) mmol/L ABG Total CO2 27 H (19-24) mmol/L ABG O2 Saturation 99.1 H (94-97) % ABG Base Excess -6.4 mmol/L Russel Test Yes FiO2 100 % Sodium (137-145) mmol/L Potassium (3.5-5.1) mmol/L Chloride (98-107) mmol/L Carbon Dioxide (22-30) mmol/L Anion Gap mmol/L BUN (9-20) mg/dL Creatinine (0.66-1.25) mg/dL Est GFR (CKD-EPI)AfAm (>60 ml/min/1.73 sqM) Est GFR (CKD-EPI)NonAf (>60 ml/min/1.73 sqM) Glucose (74-99) mg/dL POC Glucose (mg/dL) 340 H (75-99) mg/dL POC Glu Auto Glass Technician ID Cinthia, Pily Lactic Ac Sepsis Rflx Y Plasma Lactic Acid Km (0.7-2.0) mmol/L Calcium (8.4-10.2) mg/dL Total Bilirubin (0.2-1.3) mg/dL AST (17-59) U/L ALT (21-72) U/L Alkaline Phosphatase (38-126) U/L Total Creatine Kinase (55-170) U/L CK-MB (CK-2) (0.0-2.4) ng/mL CK-MB (CK-2) Rel Index Troponin I (0.000-0.034) ng/mL NT-Pro-B Natriuret Pep pg/mL Total Protein (6.3-8.2) g/dL Albumin (3.5-5.0) g/dL - EKG Data -: EKG Interpreted by Me EKG shows normal: sinus rhythm, axis (Normal), intervals (Normal), ST-T waves ( Normal) Rate: tachycardia (Approximate 122 bpm) Interpretation: other (Old inferior infarct) Critical Care Time Critical Care Time: Yes (75 minutes) Disposition Clinical Impression: Congestive heart failure, Hypertensive emergency, Respiratory failure, Respiratory acidosis, Lactic acidosis Disposition: ADMITTED IP TO THIS HOSP Condition: Critical
[2018-03-16 06:43] LABS: Glucose,Whole Blood 149 mg/dL (75-99)
--- NOTE | 2018-03-16 07:01 | CT ---
EXAM: CT Angiography Chest With Intravenous Contrast CLINICAL HISTORY: ITS.REASON CT Reason: dyspnea TECHNIQUE: Axial computed tomographic angiography images of the chest with intravenous contrast using pulmonary embolism protocol. DLP is 962 mGy- cm. This CT exam was performed using one or more of the following dose reduction techniques: automated exposure control, adjustment of the mA and/or kV according to patient size, and/or use of iterative reconstruction technique. MIP reconstructed images were created and reviewed. Coronal and sagittal reformatted images were created and reviewed. Axial reformatted images were created and reviewed. COMPARISON: 10/15/14 FINDINGS: Pulmonary arteries: Unremarkable. No pulmonary embolism. Aorta: No acute findings. No thoracic aortic aneurysm. Lungs: Diffuse centrilobular and paraseptal emphysema. Bibasilar subsegmental atelectasis. Patchy left base infiltrate. No mass. Pleural space: Unremarkable. No significant effusion. No pneumothorax. Heart: Unremarkable. No cardiomegaly. No significant pericardial effusion. No evidence of RV dysfunction. Bones/joints: No acute fracture. No dislocation. Soft tissues: Unremarkable. Lymph nodes: Unremarkable. No enlarged lymph nodes. Tubes, lines and devices: Endotracheal tube in satisfactory position. NG tube seen entering the stomach. IMPRESSION: 1. No evidence of PE. 2. Patchy left base infiltrate may represent bronchopneumonia. Correlate clinically. 3. Endotracheal tube and NG tube are in satisfactory position.
[2018-03-16] MEDS: IPRATROPIUM-ALBUTEROL 3 ML NEB INHALATION PRN ×4 (07:30→19:12)
[2018-03-16] MEDS: LACTATED RINGERS 1,000 ML IV SCH ×2 (07:45→08:50)
[2018-03-16 07:52] LABS: ABG Base Excess -2.1 mmol/L; ABG HCO3 25 mmol/L (21-25); ABG PCO2 57 mmHg (35-45); ABG PH 7.25 (7.35-7.45); ABG PO2 133 mmHg (83-108); ABG TCO2 27 mmol/L (19-24)
[2018-03-16] MEDS ORDERED: NOREPINEPHRIN 4 MG-0.9% NS PMX 4 MG/250 ML ML IV SCH (08:00)
[2018-03-16] MEDS: IPRATROPIUM 0.5 MG/2.5 ML NEBU INHALATION SCH ×4 (08:03→19:12)
[2018-03-16] MEDS: SODIUM CHLORIDE 0.9% 1,000 ML IV SCH ×3 (08:04→21:12)
[2018-03-16 08:34] LABS: Basophils % (A) 0 %; Eosinophils % (A) 0 %; HCT 43.9 % (39.0-53.0); Lymphocytes # (A) 0.5 k/uL (1.0-4.8); Lymphocytes % (A) 4 %; MCH 31.3 pg (25.0-35.0); MCHC 31.9 g/dL (31.0-37.0); MCV 98.1 fL (80.0-100.0); Monocytes # (A) 0.2 k/uL (0-1.0); Monocytes % (A) 2 %; Neutrophils # (A) 11.5 k/uL (1.3-7.7); Neutrophils % (A) 94 %; Platelet Count 166 k/uL (150-450); RBC 4.48 m/uL (4.30-5.90); RDW 13.3 % (11.5-15.5); WBC 12.3 k/uL (3.8-10.6)
--- NOTE | 2018-03-16 08:47 | P.CNPUL ---
History of Present Illness Consult date: 03/16/18 Reason for consult: dyspnea History of present illness: Is a 67-year-old male patient with known history of advanced COPD, previous history of coronary artery disease and coronary stenting, congestion heart failure with an ejection fraction of 20-25%, previous history of sustained ventricular tachycardia along with history of smoking, hypertension and hyperlipidemia. The patient's last evaluation in the hospital was in February 2017 and at that time the patient underwent successful stenting of the ostial proximal up to is marginal branch, OM1, in addition to successful stenting of the proximal right coronary artery. The patient came into the emergency department this morning with acute respiratory distress. He was brought in via EMS. He was very hypoxic at home and his pulse ox was 70%. He was placed on CPAP on the Route and in the emergency department the patient had a blood gas that showed severe a stress and he was placed on BiPAP to which she failed and subsequently he was intubated and placed on mechanical ventilator. Post intubation blood gases showed a pH of 7.06 with a pCO2 of 85 and pO2 of 400. Based on this, the patient was placed on assist control mode at the rate of 24, tidal volume was 500 with an FiO2 dropped down to 50% and a rate of 24 and a PEEP of 5. Post this, blood gases were done and showed a pH of 7.25 with a pCO2 of 57 and pO2 133. Currently the patient is hypotensive and the blood pressure in the mid 80s. He was given a total of 2 L of lactated Ringer. He is on no pressors for the time being. His white cell count was at 15.6. He had a lactic acid level of 6.0. The proBNP level was 4000. First set of troponin was 0.016. Rest of the blood work and electrolytes are within normal limits and the blood sugar was at 260. D-dimer was at 2.55. CT angios the chest was done in the emergency department and the CAT scan showed diffuse centrilobular emphysema paraseptal emphysema. There is evidence of bibasilar subsegmental atelectasis. Patchy left basilar infiltrate. No pleural effusion. No evidence of any pulmonary edema. No evidence of any pulmonary embolism. ET tube was in good location. Currently the patient is sedated and is confident comfortable. He is synchronous with the mechanical ventilator. He is currently on 30 mics of propofol and the patient is also receiving normal saline today to follow 25 mL an hour. Urine output is in order of 10-15 mL an hour. Review of Systems ROS unobtainable: due to endotracheal tube Past Medical History Past Medical History: Coronary Artery Disease (CAD), Heart Failure, COPD, Deep Vein Thrombosis (DVT), GERD/Reflux, Hyperlipidemia, Hypertension, Myocardial Infarction ([place]), Vascular Disorder Additional Past Medical History / Comment(s): Coronary artery disease with previous cardiac catheterization and stenting, please refer to the catheter was done in 2016 and the patient had stenting of RCA and obtuse marginal,, previous myocardial infarction, poor circulation and the patient has had a previous fem- fem bypass surgery, CHF with an ejection fraction of less than 20%, history of sustained ventricular tachycardia, hypertension, DVT, COPD, acid reflux, hyperlipidemia, hypertension, restless leg syndrome, sciatica, rotator cuff injury in the left shoulder, degenerative arthritis with bilateral chronic hip pain Last Myocardial Infarction Date:: 10/08/14 History of Any Multi-Drug Resistant Organisms: None Reported Past Surgical History: Appendectomy, Bowel Resection, Heart Catheterization With Stent, Hernia Repair Additional Past Surgical History / Comment(s): 12/01/14 R femfem bypass, Abdominal aortagram with bilateral extremity, HEART CATH WITH STENT SEP 2017 , HERNIA SURG X3. Past Anesthesia/Blood Transfusion Reactions: No Reported Reaction Date of Last Stent Placement:: 2013 Past Psychological History: No Psychological Hx Reported Smoking Status: Current every day smoker Past Alcohol Use History: None Reported Past Drug Use History: Marijuana - Past Family History Mother Family Medical History: Chest Pain / Angina, Diabetes Mellitus, Hypertension, Myocardial Infarction ([place]) Additional Family Medical History / Comment(s): Mother of [place] at age 84 yrs. Father Additional Family Medical History / Comment(s): Father had black lung disease. Medications and Allergies Home Medications Medication Instructions Recorded Confirmed Type rOPINIRole HCL [Requip] 2 mg PO HS 10/08/14 03/04/17 History Albuterol Sulfate [Proair Hfa] 2 puff INHALATION RT-Q6H PRN 03/04/17 03/04/17 History Umeclidinium [place] [Incruse 1 puff INHALATION RT-DAILY 03/04/17 03/04/17 History Ellipta] oxyCODONE-APAP 10-325MG [Percocet 1 tab PO Q4H PRN 03/04/17 03/04/17 History 10-325 mg] Aspirin 81 mg PO DAILY #30 chew 03/07/17 Rx Atorvastatin [Lipitor] 80 mg PO HS #30 tab 03/07/17 Rx Clopidogrel [Plavix] 75 mg PO DAILY #30 tab 03/07/17 Rx Ipratropium-Albuterol Nebulize 3 ml INHALATION RT-Q2H PRN #0 03/07/17 Rx [Duoneb 0.5 mg-3 mg/3 ml Soln] ampul.neb Ipratropium-Albuterol Nebulize 3 ml INHALATION RT-QID ampul.neb 03/07/17 Rx [Duoneb 0.5 mg-3 mg/3 ml Soln] Lisinopril-Hctz 20-12.5 mg 1 tab PO DAILY #30 tab 03/07/17 Rx [Zestoretic 20-12.5] Metoprolol Tartrate [Lopressor] 12.5 mg PO BID #60 tab 03/07/17 Rx Nicotine 21Mg/24Hr Patch [Habitrol] 1 patch TRANSDERM DAILY #30 patch 03/07/17 Rx Nitroglycerin Sl Tabs [Nitrostat] 0.4 mg SUBLINGUAL Q5M PRN #25 tab 03/07/17 Rx predniSONE 10 mg PO DAILY #30 tab 03/07/17 Rx Allergies Allergy/AdvReac Type Severity Reaction Status Date / Time No Known Allergies Allergy Verified 03/04/17 07:58 Physical Exam Vitals: Vital Signs Temp Pulse Resp BP Pulse Ox 03/16/18 07:47 83 03/16/18 07:31 82 03/16/18 05:56 96 28 H 98/62 97 03/16/18 05:25 100 28 H 99/60 99 03/16/18 05:10 110 H 28 H 94/59 97 03/16/18 04:56 110 H 28 H 91/57 97 03/16/18 04:45 110 H 30 H 100/59 89 L 03/16/18 04:44 86 L 03/16/18 04:35 102 H 28 H 94/52 90 L 03/16/18 04:28 98.8 F 03/16/18 04:10 112 H 30 H 96/53 98 03/16/18 04:04 114 H 32 H 107/63 99 03/16/18 03:40 116 H 30 H 116/68 98 03/16/18 03:37 128 H 32 H 114/67 98 03/16/18 03:30 119 H 32 H 105/62 98 03/16/18 03:25 120 H 32 H 109/66 98 03/16/18 03:09 130 H 34 H 148/88 99 03/16/18 02:59 99 34 H 177/107 99 03/16/18 02:55 97.0 F L 03/16/18 02:52 152 H 36 H 178/103 99 03/16/18 02:49 156 H 36 H 174/116 99 03/16/18 02:47 156 H 36 H 181/111 99 03/16/18 02:44 158 H 36 H 186/111 99 03/16/18 02:42 157 H 42 H 189/122 99 Intake and Output 03/15/18 03/16/18 03/16/18 22:59 06:59 14:59 Intake Total 5.153 Balance 5.153 Intake: Intake, IV Titration 5.153 Amount Propofol 1,000 mg In 5.153 Empty Bag 1 bag @ Titrate IV .Q0M [facility] Rx#: [id number] Other: Weight 87.543 kg Gen. appearance, the patient is intubated, comfortable on a mechanical ventilator and sedated. Orotracheal and orogastric tube are both in place. Head exam was generally normal. There was no scleral icterus or corneal arcus. Mucous membranes were moist. Neck was supple and without jugular venous distension, thyromegaly, or carotid bruits. Carotids were easily palpable bilaterally. There was no adenopathy. Lungs sounds are diminished bilaterally along with scattered expiratory wheezes and rhonchi heard throughout the lung kinney and there is pronation of the expiratory phase of breathing. Cardiac exam revealed the PMI to be normally situated and sized. The rhythm was regular and no extrasystoles were noted during several minutes of auscultation. The first and second heart sounds were normal and physiologic splitting of the second heart sound was noted. There were no murmurs, rubs, clicks, or gallops. Abdominal exam revealed normal bowel sounds. The abdomen was soft, non-tender, and without masses, organomegaly, or appreciable enlargement of the abdominal aorta. Examination of the extremities revealed easily palpable radial, femoral and pedal pulses are diminished for now. There was no cyanosis, clubbing or edema. Neurologically the patient is sedated and is calm and comfortable withdraws to painful stimuli moving all 4 extremities and there is no cranial nerve deficits. Examination of the skin revealed no evidence of significant rashes, suspicious appearing nevi or other concerning lesions. Results - Laboratory Findings CBC and BMP: 03/16/18 02:43 03/16/18 02:43 ABG ABG pH 7.25 (7.35-7.45) L 03/16/18 07:47 ABG pCO2 57 mmHg (35-45) H 03/16/18 07:47 ABG pO2 133 mmHg (83-108) H 03/16/18 07:47 ABG O2 Saturation 98.0 % (94-97) H 03/16/18 07:47 PT/INR, D-dimer D-Dimer 2.55 mg/L FEU (<0.60) H 03/16/18 02:43 Abnormal lab findings: Abnormal Labs 03/16/18 03/16/18 03/16/18 02:43 02:43 02:43 WBC 15.6 H Hct 53.2 H MCV 100.9 H Neutrophils # 9.8 H D-Dimer ABG pH ABG pCO2 ABG pO2 ABG Total CO2 ABG O2 Saturation Carbon Dioxide 20 L Glucose 260 H POC Glucose (mg/dL) Plasma Lactic Acid Km Total Creatine Kinase 327 H CK-MB (CK-2) 5.1 H* 03/16/18 03/16/18 03/16/18 02:43 02:43 02:50 WBC Hct MCV Neutrophils # D-Dimer 2.55 H ABG pH ABG pCO2 ABG pO2 ABG Total CO2 ABG O2 Saturation Carbon Dioxide Glucose POC Glucose (mg/dL) 340 H Plasma Lactic Acid Km 6.0 H* Total Creatine Kinase CK-MB (CK-2) 03/16/18 03/16/18 03/16/18 03:32 06:41 07:47 WBC Hct MCV Neutrophils # D-Dimer ABG pH 7.06 L* 7.25 L ABG pCO2 85 H* 57 H ABG pO2 >400 H 133 H ABG Total CO2 27 H 27 H ABG O2 Saturation 99.1 H 98.0 H Carbon Dioxide Glucose POC Glucose (mg/dL) 149 H Plasma Lactic Acid Km Total Creatine Kinase CK-MB (CK-2) - Diagnostic Findings Chest x-ray: image reviewed Assessment and Plan Plan: Assessment 1 acute hypoxic respiratory failure, likely on the basis of COPD exacerbation/ left lower lobe pneumonia. 2 acute hypercapnic respiratory failure/acute respiratory respiratory acidosis 3 acute lactic acidosis 4 congestion heart failure with an ejection fraction of 20% to 25% 5 hypotension, currently on IV fluids. Probably multifactorial. Rule out infection/sepsis with possibly a cardiogenic component to his evolving hypotension 6 coronary artery disease with previous coronary intervention and stenting, please refer to the catheterization from 2017 7 previous history of nonsustained V. tach 8 previous history of DVT 9 peripheral vascular disease with a previous fem-fem bypass surgery 10 acute leukocytosis 11 hyperlipidemia 12 previous history of hypertension 13 restless leg syndrome 14 sciatica 15 smoker and this includes tobacco and marijuana Plan Continue with IV fluids. The patient will receive a total of 2 L of bolus of lactated Ringer. The maintenance IV fluids at normal saline at the rate of 25 mL an hour. Sputum Gram stain and culture. Blood culture. Urine analysis and urine culture. Cover the patient empirically with Zosyn and Levaquin. Continue vent support. Insert a Artline catheter monitor the blood gases. This is a triple lumen catheter. Continue with DuoNeb the last treatment around -the-clock. IV Solu-Medrol. Propofol for sedation try to wean it off to keep a 0 to -1. Hold metoprolol for now. Hold Lasix hydrochlorothiazide. Continue aspirin and Plavix. Add Lovenox for DVT prophylaxis. Repeat echocardiogram. We'll continue to follow. Condition is critical. EKG was reviewed. We'll continue to follow. Time with Patient: Greater than 30
[2018-03-16 08:48] LABS: Anion Gap 10 mmol/L; Blood Urea Nitrogen 13 mg/dL (9-20); Carbon Dioxide 24 mmol/L (22-30); Chloride 102 mmol/L (98-107); Glucose 135 mg/dL (74-99); Potassium 4.7 mmol/L (3.5-5.1); Sodium 136 mmol/L (137-145)
[2018-03-16] MEDS ORDERED: METOPROLOL TARTRATE 12.5 MG TAB PO SCH (09:00)
[2018-03-16] MEDS: PIPERACILLIN-TAZOBACTAM 3.375 GM in DEXTROSE/WATER 1 50ML.BAG IVPB SCH ×2 (09:00→16:26)
[2018-03-16] MEDS ORDERED: FAMOTIDINE 20 MG/2 ML VIAL IV SCH (09:00)
[2018-03-16] MEDS ORDERED: LEVOFLOXACIN 750 MG TAB PO SCH (09:00)
[2018-03-16] MEDS ORDERED: LISINOPRIL-HCTZ 20-12.5 MG 1 EACH TAB PO SCH (09:00)
[2018-03-16 09:08] LABS: Glucose,Whole Blood 145 mg/dL (75-99)
[2018-03-16] MEDS: NICOTINE 21MG/24HR PATCH TRANSDERM SCH (09:11)
[2018-03-16] MEDS: INSULIN ASPART 100 UNIT/ML 1 ML 10 ML VIAL SQ SCH ×4 (09:13→21:08)
[2018-03-16] MEDS: PANTOPRAZOLE 40 MG/10 ML VIAL IVP SCH (09:13)
[2018-03-16] MEDS: ASPIRIN 81 MG PO SCH (09:28)
[2018-03-16] MEDS: CLOPIDOGREL 75 MG TAB PO SCH (09:28)
[2018-03-16] MEDS: CHLORHEXIDINE GLUCONATE 15 ML CUP MUCOUS MEM SCH ×2 (09:36→21:12)
[2018-03-16] MEDS: LEVOFLOXACIN 750MG-D5W PMX 750 MG in DEXTROSE/WATER 1 150ML.BAG IVPB SCH (10:06)
--- NOTE | 2018-03-16 10:23 | ECHOF ---
Referral Reason:Heart Failure MEASUREMENTS -------- HEIGHT: 180.3 cm WEIGHT: 87.5 kg BP: 98/62 IVSd: 1.0 cm (0.6 - 1.1) LVIDd: 6.1 cm (3.9 - 5.3) LVPWd: 0.9 cm (0.6 - 1.1) IVSs: 1.3 cm LVIDs: 5.2 cm LVPWs: 1.4 cm Ao Diam: 3.5 cm (2.0 - 3.7) AV Cusp: 1.8 cm (1.5 - 2.6) LA Diam: 4.5 cm (2.7 - 3.8) MV E Kleber: 0.60 m/s MV DecT: 171 ms MV A Kleber: 0.47 m/s MV E/A Ratio: 1.27 RAP: 5.00 mmHg RVSP: 32.02 mmHg FINDINGS -------- Sinus rhythm. This was a technically difficult study with suboptimal views. The left ventricle is mildly dilated. Left ventricular wall thickness is normal. There is severe global hypokinesis of LV . Overall left ventricular systolic function is severely impaired with, an EF between 20 - 25 %. The right ventricle is normal in size and function. The left atrium is mildly dilated. The right atrium is normal in size. Lumason used The aortic valve is trileaflet, and appears structurally normal. No aortic stenosis or regurgitation. The mitral valve leaflets are mildly thickened. Mild mitral regurgitation is present. Mild tricuspid regurgitation present. The right ventricular systolic pressure, as measured by Doppl er, is 32.02mmHg. Pulmonic valve appears structurally normal. The aortic root size is normal. The pericardium is normal. CONCLUSIONS -------- 1. Sinus rhythm. 2. This was a technically difficult study with suboptimal views. 3. The left ventricle is mildly dilated. 4. Left ventricular wall thickness is normal. 5. There is severe global hypokinesis of LV . 6. Overall left ventricular systolic function is severely impaired with, an EF between 20 - 25 %. 7. The right ventricle is normal in size and function. 8. The left atrium is mildly dilated. 9. The right atrium is normal in size. 10. Lumason used 11. The aortic valve is trileaflet, and appears structurally normal. No aortic stenosis or regurgitat ion. 12. The mitral valve leaflets are mildly thickened. 13. Mild mitral regurgitation is present. 14. Mild tricuspid regurgitation present. 15. The right ventricular systolic pressure, as measured by Doppler, is 32.02mmHg. 16. Pulmonic valve appears structurally normal. 17. The aortic root size is normal. 18. The pericardium is normal. ICE SCULPTOR: Shelby Montero RDCS
[2018-03-16 11:25] LABS: Appearance,Urine Clear (Clear); Bacteria,Urine Rare /hpf; Bilirubin,Urine Negative (Negative); Blood,Urine Negative (Negative); Color,Urine Yellow; Glucose,Urine (UA) Negative (Negative); Hyaline Casts,Urine 1 /lpf (0-2); Ketones,Urine Negative (Negative); Leukocyte Esterase,Urine Trace (Negative); Nitrite,Urine Negative (Negative); Protein,Urine Trace (Negative); RBC,Urine 6 /hpf (0-5); Squamous Epithelial Cell,Urine 1 /hpf (0-4); Urobilinogen,Urine <2.0 mg/dL (<2.0); WBC,Urine 5 /hpf (0-5)
[2018-03-16 11:56] LABS: Glucose,Whole Blood 144 mg/dL (75-99)
[2018-03-16 12:03] LABS: Specific Gravity,Urine >1.050 (1.001-1.035)
[2018-03-16] MEDS: methylPREDNISolone SOD SUCCI 125 MG/2 ML VIAL IV SCH ×2 (12:24→18:53)
[2018-03-16] MEDS ORDERED: HEPARIN SODIUM,PORCINE 5,000 UNIT/ML 1 ML VIAL SQ SCH (16:00)
[2018-03-16 16:17] LABS: Glucose,Whole Blood 107 mg/dL (75-99)
[2018-03-16] MEDS ORDERED: CISATRACURIUM 2 MG/ML 5 ML VIAL IV ONE (16:44)
--- NOTE | 2018-03-16 16:54 | P.HPIM ---
History of Present Illness Patient is 70-year-old gentleman with advanced COPD and can start failure ejection fraction 20-25% presented to an outside hospital with the shortness of breath patient was subsequently transferred to ER here and route patient was on BiPAP has to be intubated patient blood gases are consistent with respiratory acidosis with pCO2 of 85 and COPD exacerbation and hypercapnic respiratory failure patient is presently intubated sedated pH improved people of 5 set up respiratory rate of 12 patient is breathing over the ventilator pCO2 improved FiO2 of 40% and tidal volume of 500. Patient lactic acid level was high this has come down now CAT scan showed diffuse centrilobular emphysema. Patient is still receiving IV fluids as he is requiring not in epinephrine and patient is on propofol sedation. Review of Systems Unable to obtain due to his clinical condition Past Medical History Past Medical History: Coronary Artery Disease (CAD), Heart Failure, COPD, Deep Vein Thrombosis (DVT), GERD/Reflux, Hyperlipidemia, Hypertension, Myocardial Infarction (IA), Osteoarthritis (OA), Pneumonia, Vascular Disorder Additional Past Medical History / Comment(s): Vtach, chronic CHF, DVT R leg with surgery, IA x 2 09/2014, PAD, R foot pain d/t poor circulation, RLS, back pain, sciatica, L shoulder rotator cuff injury, bilateral hip pain. Last Myocardial Infarction Date:: 10/08/14 History of Any Multi-Drug Resistant Organisms: None Reported Past Surgical History: Appendectomy, Bowel Resection, Heart Catheterization With Stent, Hernia Repair Additional Past Surgical History / Comment(s): 12/01/14 R femfem bypass, Abdominal aortagram with bilateral extremity, HEART CATH WITH STENT 2016, ABDOMINAL HERNIA SURG X3. Past Anesthesia/Blood Transfusion Reactions: No Reported Reaction Date of Last Stent Placement:: 2013 Smoking Status: Current every day smoker - Past Family History Mother Family Medical History: Chest Pain / Angina, Diabetes Mellitus, Hypertension, Myocardial Infarction (IA) Additional Family Medical History / Comment(s): Mother of IA at age 84 yrs. Father Additional Family Medical History / Comment(s): Father had black lung disease. Medications and Allergies Home Medications Medication Instructions Recorded Confirmed Type rOPINIRole HCL [Requip] 2 mg PO HS 10/08/14 03/16/18 History Albuterol Sulfate [Proair Hfa] 2 puff INHALATION RT-Q6H PRN 03/04/17 03/16/18 History Clopidogrel [Plavix] 75 mg PO DAILY #30 tab 03/07/17 03/16/18 Rx Nitroglycerin Sl Tabs [Nitrostat] 0.4 mg SUBLINGUAL Q5M PRN #25 tab 03/07/1705/27 Rx Aclidinium [place] [Tudorza 1 puff PO RT-BID 03/16/18 03/16/18 History Pressair] Albuterol Nebulized [Ventolin 2.5 mg INHALATION RT-Q6H PRN 03/16/18 03/16/18 History Nebulized] Atorvastatin [Lipitor] 20 mg PO HS 03/16/18 03/16/18 History Budesonide-Formot 160-4.5 Mcg 2 puff INHALATION RT-BID 03/16/18 03/16/18 History [Symbicort 160-4.5 Mcg Inhaler] Lisinopril [Zestril] 20 mg PO DAILY 03/16/18 03/16/18 History Allergies Allergy/AdvReac Type Severity Reaction Status Date / Time No Known Allergies Allergy Verified 03/16/18 13:13 Physical Exam Vitals: Vital Signs Temp Pulse Resp BP Pulse Ox 03/16/18 16:00 98 F 90 28 H 101/70 98 03/16/18 15:37 90 03/16/18 15:30 92 27 H 101/69 100 03/16/18 15:22 92 03/16/18 15:00 93 21 100/63 99 03/16/18 14:30 94 26 H 100/68 99 03/16/18 14:00 91 27 H 94/65 100 03/16/18 13:30 91 29 H 101/77 100 03/16/18 13:00 88 28 H 101/60 99 03/16/18 12:30 86 26 H 95/63 98 03/16/18 12:00 97.8 F 98 26 H 104/64 100 03/16/18 11:50 86 03/16/18 11:30 83 27 H 101/68 100 03/16/18 11:15 80 29 H 95/68 100 03/16/18 11:00 80 28 H 96/75 100 03/16/18 10:45 80 31 H 106/83 100 03/16/18 10:30 77 27 H 100/75 100 05/07/18 10:15 76 27 H 94/74 100 05/0718 10:00 76 28 H 97/67 100 0518 09:45 77 28 H 93/72 100 18 09:30 74 28 H 87/67 100 18 09:15 72 25 H 86/61 98 18 09:00 73 26 H 85/59 99 18 08:45 72 25 H 90/64 100 18 08:30 94.3 F L 74 24 84/63 99 050718 08:15 76 28 H 84/67 0518 08:00 77 30 H 82/58 05 07:47 83 05/0718 07:45 79 26 H 78/62 0518 07:31 82 0518 07:30 81 33 H 84/63 0518 07:15 83 27 H 78/59 05 07:00 84 26 H 84/60 0518 06:45 97.6 F 85 24 82/61 05//18 05:56 96 28 H 98/62 97 /07/18 05:25 100 28 H 99/60 99 18 05:10 110 H 28 H 94/59 97 18 04:56 110 H 28 H 91/57 97 /07/18 04:45 110 H 30 H 100/59 89 L 18 04:44 86 L 18 04:35 102 H 28 H 94/52 90 L 18 04:28 98.8 F 0507/18 04:10 112 H 30 H 96/53 98 05/07/18 04:04 114 H 32 H 107/63 99 05/07/18 03:40 116 H 30 H 116/68 98 05/07/18 03:37 128 H 32 H 114/67 98 05/07/18 03:30 119 H 32 H 105/62 98 05/07/18 03:25 120 H 32 H 109/66 98 05/07/18 03:09 130 H 34 H 148/88 99 05/07/18 02:59 99 34 H 177/107 99 05/07/18 02:55 97.0 F L 0507/18 02:52 152 H 36 H 178/103 99 03/16/18 02:49 156 H 36 H 174/116 99 03/16/18 02:47 156 H 36 H 181/111 99 03/16/18 02:44 158 H 36 H 186/111 99 03/16/18 02:42 157 H 42 H 189/122 99 Intake and Output 03/16/18 03/16/18 03/16/18 06:59 14:59 22:59 Intake Total 5.153 2988.727 250 Output Total 615 185 Balance 5.153 2373.727 65 Intake: IV 2905.0 250 Lactated Ringers 1,000 ml 2000 @ 999 mls/hr IV .Q1H1M [facility] Rx#:[id number] Levofloxacin 750Mg-D5w 150 Pmx 750 mg In Dextrose/ Water 1 150ml.bag @ 100 mls/hr IVPB Q24H [facility] Rx#: [id number] Piperacillin-Tazobactam 3 50.0 .375 gm In Dextrose/Water 1 50ml.bag @ 12.5 mls/hr IVPB Q8HR [facility] Rx#: [id number] Sodium Chloride 0.9% 1, 705 250 000 ml @ 125 mls/hr IV . Q8H [facility] Rx#:[id number] Intake, IV Titration 5.153 83.727 Amount Propofol 1,000 mg In 5.153 83.727 Empty Bag 1 bag @ Titrate IV .Q0M [facility] Rx#: [id number] Output: Gastric Drainage 100 Urine 515 185 Other: Voiding Method Indwelling Catheter Weight 87.543 kg 82.5 kg PHYSICAL EXAMINATION: GENERAL: Intubated sedated, HEENT: Pupils are round and equally reacting to light. EOMI. No scleral icterus. No conjunctival pallor. Normocephalic, atraumatic. No pharyngeal erythema. No thyromegaly. CARDIOVASCULAR: S1 and S2 present. No murmurs, rubs, or gallops. PULMONARY: Limited air entry into bilateral lung kinney wheezing was appreciated ABDOMEN: Soft, nontender, nondistended, normoactive bowel sounds. No palpable organomegaly. MUSCULOSKELETAL: No joint swelling or deformity. EXTREMITIES: No cyanosis, clubbing, or pedal edema. NEUROLOGICAL: Unable to assess due to sedation SKIN: No rashes. Results CBC & Chem 7: 03/16/18 08:20 03/16/18 08:20 Labs: Abnormal Lab Results - Last 24 Hours (Table) 03/16/18 03/16/18 03/16/18 Range/Units 02:43 02:43 02:43 WBC 15.6 H (3.8-10.6) k/uL Hct 53.2 H (39.0-53.0) % MCV 100.9 H (80.0-100.0) fL Neutrophils # 9.8 H (1.3-7.7) k/uL Lymphocytes # (1.0-4.8) k/uL D-Dimer (<0.60) mg/L FEU ABG pH (7.35-7.45) ABG pCO2 (35-45) mmHg ABG pO2 (83-108) mmHg ABG Total CO2 (19-24) mmol/L ABG O2 Saturation (94-97) % Sodium (137-145) mmol/L Carbon Dioxide 20 L (22-30) mmol/L Glucose 260 H (74-99) mg/dL POC Glucose (mg/dL) (75-99) mg/dL Plasma Lactic Acid Km (0.7-2.0) mmol/L Calcium (8.4-10.2) mg/dL Phosphorus (2.5-4.5) mg/dL Total Creatine Kinase 327 H (55-170) U/L CK-MB (CK-2) 5.1 H* (0.0-2.4) ng/mL Troponin I (0.000-0.034) ng/mL Ur Specific [place] (1.001-1.035) Urine Protein (Negative) Ur Leukocyte Esterase (Negative) Urine RBC (0-5) /hpf Urine Bacteria (None) /hpf 03/16/18 03/16/18 03/16/18 Range/Units 02:43 02:43 02:50 WBC (3.8-10.6) k/uL Hct (39.0-53.0) % MCV (80.0-100.0) fL Neutrophils # (1.3-7.7) k/uL Lymphocytes # (1.0-4.8) k/uL D-Dimer 2.55 H (<0.60) mg/L FEU ABG pH (7.35-7.45) ABG pCO2 (35-45) mmHg ABG pO2 (83-108) mmHg ABG Total CO2 (19-24) mmol/L ABG O2 Saturation (94-97) % Sodium (137-145) mmol/L Carbon Dioxide (22-30) mmol/L Glucose (74-99) mg/dL POC Glucose (mg/dL) 340 H (75-99) mg/dL Plasma Lactic Acid Km 6.0 H* (0.7-2.0) mmol/L Calcium (8.4-10.2) mg/dL Phosphorus (2.5-4.5) mg/dL Total Creatine Kinase (55-170) U/L CK-MB (CK-2) (0.0-2.4) ng/mL Troponin I (0.000-0.034) ng/mL Ur Specific [place] (1.001-1.035) Urine Protein (Negative) Ur Leukocyte Esterase (Negative) Urine RBC (0-5) /hpf Urine Bacteria (None) /hpf 03/16/18 03/16/18 03/16/18 Range/Units 03:32 06:41 07:47 WBC (3.8-10.6) k/uL Hct (39.0-53.0) % MCV (80.0-100.0) fL Neutrophils # (1.3-7.7) k/uL Lymphocytes # (1.0-4.8) k/uL D-Dimer (<0.60) mg/L FEU ABG pH 7.06 L* 7.25 L (7.35-7.45) ABG pCO2 85 H* 57 H (35-45) mmHg ABG pO2 >400 H 133 H (83-108) mmHg ABG Total CO2 27 H 27 H (19-24) mmol/L ABG O2 Saturation 99.1 H 98.0 H (94-97) % Sodium (137-145) mmol/L Carbon Dioxide (22-30) mmol/L Glucose (74-99) mg/dL POC Glucose (mg/dL) 149 H (75-99) mg/dL Plasma Lactic Acid Km (0.7-2.0) mmol/L Calcium (8.4-10.2) mg/dL Phosphorus (2.5-4.5) mg/dL Total Creatine Kinase (55-170) U/L CK-MB (CK-2) (0.0-2.4) ng/mL Troponin I (0.000-0.034) ng/mL Ur Specific [place] (1.001-1.035) Urine Protein (Negative) Ur Leukocyte Esterase (Negative) Urine RBC (0-5) /hpf Urine Bacteria (None) /hpf 03/16/18 03/16/18 03/16/18 Range/Units 08:20 08:20 09:07 WBC 12.3 H (3.8-10.6) k/uL Hct (39.0-53.0) % MCV (80.0-100.0) fL Neutrophils # 11.5 H (1.3-7.7) k/uL Lymphocytes # 0.5 L (1.0-4.8) k/uL D-Dimer (<0.60) mg/L FEU ABG pH (7.35-7.45) ABG pCO2 (35-45) mmHg ABG pO2 (83-108) mmHg ABG Total CO2 (19-24) mmol/L ABG O2 Saturation (94-97) % Sodium 136 L (137-145) mmol/L Carbon Dioxide (22-30) mmol/L Glucose 135 H (74-99) mg/dL POC Glucose (mg/dL) 145 H (75-99) mg/dL Plasma Lactic Acid Km (0.7-2.0) mmol/L Calcium 8.0 L (8.4-10.2) mg/dL Phosphorus 5.0 H (2.5-4.5) mg/dL Total Creatine Kinase (55-170) U/L CK-MB (CK-2) (0.0-2.4) ng/mL Troponin I (0.000-0.034) ng/mL Ur Specific [place] (1.001-1.035) Urine Protein (Negative) Ur Leukocyte Esterase (Negative) Urine RBC (0-5) /hpf Urine Bacteria (None) /hpf 03/16/18 03/16/18 03/16/18 Range/Units 10:55 11:53 12:02 WBC (3.8-10.6) k/uL Hct (39.0-53.0) % MCV (80.0-100.0) fL Neutrophils # (1.3-7.7) k/uL Lymphocytes # (1.0-4.8) k/uL D-Dimer (<0.60) mg/L FEU ABG pH (7.35-7.45) ABG pCO2 (35-45) mmHg ABG pO2 (83-108) mmHg ABG Total CO2 (19-24) mmol/L ABG O2 Saturation (94-97) % Sodium (137-145) mmol/L Carbon Dioxide (22-30) mmol/L Glucose (74-99) mg/dL POC Glucose (mg/dL) 144 H (75-99) mg/dL Plasma Lactic Acid Km (0.7-2.0) mmol/L Calcium (8.4-10.2) mg/dL Phosphorus (2.5-4.5) mg/dL Total Creatine Kinase (55-170) U/L CK-MB (CK-2) (0.0-2.4) ng/mL Troponin I 0.255 H* (0.000-0.034) ng/mL Ur Specific [place] >1.050 H (1.001-1.035) Urine Protein Trace H (Negative) Ur Leukocyte Esterase Trace H (Negative) Urine RBC 6 H (0-5) /hpf Urine Bacteria Rare H (None) /hpf 03/16/18 Range/Units 16:16 WBC (3.8-10.6) k/uL Hct (39.0-53.0) % MCV (80.0-100.0) fL Neutrophils # (1.3-7.7) k/uL Lymphocytes # (1.0-4.8) k/uL D-Dimer (<0.60) mg/L FEU ABG pH (7.35-7.45) ABG pCO2 (35-45) mmHg ABG pO2 (83-108) mmHg ABG Total CO2 (19-24) mmol/L ABG O2 Saturation (94-97) % Sodium (137-145) mmol/L Carbon Dioxide (22-30) mmol/L Glucose (74-99) mg/dL POC Glucose (mg/dL) 107 H (75-99) mg/dL Plasma Lactic Acid Km (0.7-2.0) mmol/L Calcium (8.4-10.2) mg/dL Phosphorus (2.5-4.5) mg/dL Total Creatine Kinase (55-170) U/L CK-MB (CK-2) (0.0-2.4) ng/mL Troponin I (0.000-0.034) ng/mL Ur Specific [place] (1.001-1.035) Urine Protein (Negative) Ur Leukocyte Esterase (Negative) Urine RBC (0-5) /hpf Urine Bacteria (None) /hpf Microbiology - Last 24 Hours (Table) 03/16/18 03:30 Gram Stain - Preliminary Sputum Sputum Culture - Preliminary Thrombosis Risk Factor Assmnt - Choose All That Apply Any of the Below Risk Factors Present?: Yes Each Factor Represents 1 point: Abnormal pulmonary function (COPD), Heart failure (<1month), Obesity (BMI >25) Other Risk Factors: Yes Each Risk Factor Represents 2 Points: Age 61-74 years Other congenital or acquired thrombophilia - If yes, enter type in comment: No Thrombosis Risk Factor Assessment Total Risk Factor Score: 5 Thrombosis Risk Factor Assessment Level: High Risk Assessment and Plan Plan: Acute hypercapnic respiratory failure: Secondary to COPD exacerbation patient is on systemic steroids inhaled treatments on levofloxacin and Zosyn. -Shock: Most probably cardiogenic patient is on norepinephrine. Patient is also getting IV fluids in spite of heart failure because of the shock -Lactic acidosis due to decrease in perfusion secondary to shock -Congestive heart failure chronic systolic dysfunction with acute exacerbation -Coronary artery disease with recent cardiac catheterization and stenting in 2017 -Nonsustained VT -History of DVT in the past -Peripheral vascular disease with fem-fem bypass -Hyperlipidemia -Hypertension -Restless leg syndrome -Sciatica and chronic low back pain
--- NOTE | 2018-03-16 18:14 | XR ---
EXAMINATION TYPE: XR chest 1V portable DATE OF EXAM: 03/16/2018 COMPARISON: Today one hour ago HISTORY: Check line placement TECHNIQUE: Single frontal view of the chest is obtained. FINDINGS: Endotracheal tube is in fairly good position. There is a left subclavian catheter with the tip in the superior vena cava. There is no pneumothorax. There is coarse interstitial infiltrates th roughout the lungs. There are chest leads. There is nasogastric tube. IMPRESSION: Left-sided central venous catheter appears in good position.
--- NOTE | 2018-03-16 18:50 | PCN ---
PROCEDURE NOTE TRIPLE LUMEN CATHETER PLACEMENT: Indication Hemodynamic monitoring/Intravenous access. A time-out was completed verifying correct patient, procedure, site, positioning, and implant(s) or special equipment if applicable. The patient was placed in a dependent position appropriate for triple lumen catheter placement based on the vein to be cannulated. The patient's left shoulder was prepped and draped in sterile fashion. 1% Lidocaine was used to anesthetize the surrounding skin area. A triple lumen 9F Cordis catheter was introduced into the left subclavian vein using Seldinger technique. The catheter was threaded smoothly over the guide wire and appropriate blood return was obtained. Each lumen of the catheter was evacuated of air and flushed with sterile saline. The catheter was then sutured in place to the skin and a sterile dressing applied. Perfusion to the extremity distal to the point of catheter insertion was checked and found to be adequate. PREOP DIAGNOSIS: Respiratory failure. POSTOP DIAGNOSIS: Respiratory failure. Chest x-ray is to follow. MMAGNESL / IJN: [id number] /
--- NOTE | 2018-03-16 18:56 | PCN ---
PROCEDURE NOTE PREOPERATIVE DIAGNOSIS: Acute respiratory failure. POSTOPERATIVE DIAGNOSIS: Acute respiratory failure. SITE OF INSERTION: Left radial artery. ARTERIAL LINE PLACEMENT: Indication: Hemodynamic monitoring. A time-out was completed verifying correct patient, procedure, site, positioning, and implant(s) or special equipment if applicable. Russel's test was performed to ensure adequate perfusion. The patient's left wrist was prepped and draped in sterile fashion. 1% Lidocaine was used to anesthetize the area. An 18G [place] arterial line was introduced into the radial artery. The catheter was threaded over the guide wire and the needle was removed with appropriate pulsatile blood return. Blood loss was minimal. The catheter was then sutured in place to the skin and a sterile dressing applied. Perfusion to the extremity distal to the point of catheter insertion was checked and found to be adequate. The patient tolerated the procedure well and there were no complications. No bedside complication or bleeding. MMODL / IJN: [id number] /
[2018-03-16 20:27] LABS: Glucose,Whole Blood 117 mg/dL (75-99)
[2018-03-16] MEDS: ATORVASTATIN 80 MG TAB PO SCH (21:11)
[2018-03-16 23:46] LABS: Glucose,Whole Blood 115 mg/dL (75-99)
[2018-03-17] MEDS: methylPREDNISolone SOD SUCCI 125 MG/2 ML VIAL IV SCH ×5 (02:01→23:42)
[2018-03-17] MEDS: PROPOFOL 1,000 MG in EMPTY BAG 1 BAG IV SCH ×6 (02:01→23:42)
[2018-03-17] MEDS: INSULIN ASPART 100 UNIT/ML 1 ML 10 ML VIAL SQ SCH ×7 (02:03→23:54)
[2018-03-17] MEDS: PIPERACILLIN-TAZOBACTAM 3.375 GM in DEXTROSE/WATER 1 50ML.BAG IVPB SCH ×4 (02:04→23:42)
[2018-03-17 04:33] LABS: Glucose,Whole Blood 124 mg/dL (75-99)
[2018-03-17 04:40] LABS: ABG Base Excess 0.7 mmol/L; ABG HCO3 28 mmol/L (21-25); ABG Oxygen Saturation 93.7 % (94-97); ABG PCO2 59 mmHg (35-45); ABG PH 7.28 (7.35-7.45); ABG PO2 76 mmHg (83-108); ABG TCO2 29 mmol/L (19-24)
[2018-03-17] MEDS: SODIUM CHLORIDE 0.9% 1,000 ML IV SCH (05:11)
[2018-03-17 05:29] LABS: Basophils % (A) 0 %; Eosinophils % (A) 0 %; HCT 42.4 % (39.0-53.0); HGB 13.6 gm/dL (13.0-17.5); Lymphocytes # (A) 0.7 k/uL (1.0-4.8); Lymphocytes % (A) 7 %; MCH 31.5 pg (25.0-35.0); MCV 98.4 fL (80.0-100.0); Mean Platelet Volume 7.9; Monocytes # (A) 0.4 k/uL (0-1.0); Monocytes % (A) 3 %; Neutrophils # (A) 9.3 k/uL (1.3-7.7); Neutrophils % (A) 89 %; Platelet Count 186 k/uL (150-450); RBC 4.31 m/uL (4.30-5.90); RDW 13.4 % (11.5-15.5); WBC 10.5 k/uL (3.8-10.6)
[2018-03-17 05:50] LABS: Anion Gap 9 mmol/L; Blood Urea Nitrogen 15 mg/dL (9-20); Calcium 8.6 mg/dL (8.4-10.2); Carbon Dioxide 27 mmol/L (22-30); Chloride 102 mmol/L (98-107); Glucose 130 mg/dL (74-99); Phosphorus 4.3 mg/dL (2.5-4.5); Potassium 4.4 mmol/L (3.5-5.1); Sodium 138 mmol/L (137-145)
[2018-03-17] MEDS: IPRATROPIUM 0.5 MG/2.5 ML NEBU INHALATION SCH ×4 (07:26→19:43)
[2018-03-17] MEDS: IPRATROPIUM-ALBUTEROL 3 ML NEB INHALATION PRN ×4 (07:27→19:20)
--- NOTE | 2018-03-17 08:05 | XR ---
EXAMINATION TYPE: XR chest 1V portable DATE OF EXAM: 03/17/2018 Comparison: 03/16/2018 Clinical History: 67-year-old male Tube placement Findings: ET tube tip at the level of the medial clavicular heads. NG tube courses below the diaphragm. Left wilson bclavian CVC tip at the mid SVC level. Heart remains upper limits of normal in size. Mild diffuse interstitial prominence is unchanged. No c onsolidation or pleural effusion. Impression: Stable exam without acute change seen.
[2018-03-17 08:12] LABS: Glucose,Whole Blood 129 mg/dL (75-99)
[2018-03-17] MEDS ORDERED: SODIUM CHLORIDE 0.9% 1,000 ML IV SCH (08:44)
[2018-03-17] MEDS: MAGNESIUM SULFATE-D5W PMX 1 GM in DEXTROSE/WATER 1 100ML.BAG IVPB SCH ×2 (08:50→09:50)
[2018-03-17] MEDS: NICOTINE 21MG/24HR PATCH TRANSDERM SCH (09:50)
[2018-03-17] MEDS: LEVOFLOXACIN 750MG-D5W PMX 750 MG in DEXTROSE/WATER 1 150ML.BAG IVPB SCH (09:50)
[2018-03-17] MEDS: PANTOPRAZOLE 40 MG/10 ML VIAL IVP SCH (09:50)
[2018-03-17] MEDS: CHLORHEXIDINE GLUCONATE 15 ML CUP MUCOUS MEM SCH ×2 (09:50→20:26)
[2018-03-17] MEDS: CLOPIDOGREL 75 MG TAB PO SCH (10:03)
[2018-03-17] MEDS: ASPIRIN 81 MG PO SCH (10:03)
[2018-03-17] MEDS: ENOXAPARIN 40 MG/0.4 ML SYRINGE SQ SCH (10:04)
[2018-03-17] MEDS: FUROSEMIDE 10 MG/ML 4 ML VIAL IV SCH ×2 (10:40→20:26)
[2018-03-17 12:04] LABS: Glucose,Whole Blood 162 mg/dL (75-99)
--- NOTE | 2018-03-17 12:46 | P.PN ---
Subjective Progress Note Date: 03/17/18 Is a 67-year-old male patient with known history of advanced COPD, previous history of coronary artery disease and coronary stenting, congestion heart failure with an ejection fraction of 20-25%, previous history of sustained ventricular tachycardia along with history of smoking, hypertension and hyperlipidemia. The patient's last evaluation in the hospital was in February 2017 and at that time the patient underwent successful stenting of the ostial proximal up to is marginal branch, OM1, in addition to successful stenting of the proximal right coronary artery. The patient came into the emergency department this morning with acute respiratory distress. He was brought in via EMS. He was very hypoxic at home and his pulse ox was 70%. He was placed on CPAP on the Route and in the emergency department the patient had a blood gas that showed severe a stress and he was placed on BiPAP to which she failed and subsequently he was intubated and placed on mechanical ventilator. Post intubation blood gases showed a pH of 7.06 with a pCO2 of 85 and pO2 of 400. Based on this, the patient was placed on assist control mode at the rate of 24, tidal volume was 500 with an FiO2 dropped down to 50% and a rate of 24 and a PEEP of 5. Post this, blood gases were done and showed a pH of 7.25 with a pCO2 of 57 and pO2 133. Currently the patient is hypotensive and the blood pressure in the mid 80s. He was given a total of 2 L of lactated Ringer. He is on no pressors for the time being. His white cell count was at 15.6. He had a lactic acid level of 6.0. The proBNP level was 4000. First set of troponin was 0.016. Rest of the blood work and electrolytes are within normal limits and the blood sugar was at 260. D-dimer was at 2.55. CT angios the chest was done in the emergency department and the CAT scan showed diffuse centrilobular emphysema paraseptal emphysema. There is evidence of bibasilar subsegmental atelectasis. Patchy left basilar infiltrate. No pleural effusion. No evidence of any pulmonary edema. No evidence of any pulmonary embolism. ET tube was in good location. Currently the patient is sedated and is confident comfortable. He is synchronous with the mechanical ventilator. He is currently on 30 mics of propofol and the patient is also receiving normal saline today to follow 25 mL an hour. Urine output is in order of 10-15 mL an hour. On today's evaluation of 03/17/2018, the patient is being seen for a follow-up. The patient was in acute respiratory failure secondary to COPD and CHF exacerbation. On today's evaluation remains sedated and is calm and comfortable. He is easily arousable once off sedation. The patient remains on a mechanical ventilator on assist control mode at the rate of 24, FiO2 is down to 40% with a 5 of PEEP and a tidal volume of 500 with a rate of 24. The chest x-ray from today shows a component of pulmonary vessel congestion/edema. Noted the patient has underlying cardiomyopathy with an ejection fraction of 20-25%. ET tube is in a good location and the patient has a left subclavian triple lumen catheter with position being in a mid SVC an 80 to be also in good location. No significant airspace disease or infiltrates. The patient remains on a combination of Zosyn and Levaquin. The patient is receiving DuoNeb neb last treatment [id number] and the patient is also on IV Solu Medrol 60 mg every 6 hours. Peak airway pressures around 2324. The patient is not showing any significant bronchospasm and wheezing on today's evaluation. He is receiving IV fluids. He is hemodynamically stable. He is not requiring any pressors. Echocardiogram results were noted. No evidence of any bleeding from his stomachtube is in place. Objective - Vital Signs Vital signs: Vital Signs Temp 98.6 F 03/17/18 12:00 Pulse 85 03/17/18 12:30 Resp 24 03/17/18 12:30 BP 117/67 03/17/18 12:30 Pulse Ox 96 03/17/18 12:30 Intake & Output 03/16/18 03/17/18 03/17/18 18:59 06:59 18:59 Intake Total 3570.923 1796.109 806.0 Output Total 1105 1505 1750 Balance 2465.923 291.109 -944.0 Weight 82.5 kg 87.3 kg Intake: IV 3430.0 1648.0 706.0 0.9 at KVO 20 Lactated Ringers 1,000 ml 2000 @ 999 mls/hr IV .Q1H1M [facility] Rx#:[id number] Levofloxacin 750Mg-D5w 150 150 Pmx 750 mg In Dextrose/ Water 1 150ml.bag @ 100 mls/hr IVPB Q24H [facility] Rx#: [id number] Magnesium Sulfate-D5w Pmx 200 1 gm In Dextrose/Water 1 100ml.bag @ 100 mls/hr IVPB Q1H [facility] Rx#: [id number] Piperacillin-Tazobactam 3 75.0 100.0 50.0 .375 gm In Dextrose/Water 1 50ml.bag @ 12.5 mls/hr IVPB Q8HR [facility] Rx#: [id number] Pressure bags of Nomal 48 36 Saline for CVP & Daily Sodium Chloride 0.9% 1, 1205 1500 250 000 ml @ 125 mls/hr IV . Q8H [facility] Rx#:[id number] Sodium Chloride 0.9% 1, 0 000 ml @ 50 mls/hr IV . Q20H [facility] Rx#:[id number] Intake, IV Titration 140.923 148.109 100 Amount Propofol 1,000 mg In 140.923 148.109 100 Empty Bag 1 bag @ Titrate IV .Q0M [facility] Rx#: [id number] Output: Gastric Drainage 250 450 200 Urine 855 1055 1550 Other: Voiding Method Indwelling Catheter Indwelling Catheter Indwelling Catheter ABP, PAP, CO, CI - Last Documented Arterial Blood Pressure 142/58 Pulmonary Artery Pressure 0/0 - Exam Gen. appearance, the patient is intubated, comfortable on a mechanical ventilator and sedated. Orotracheal and orogastric tube are both in place. Head exam was generally normal. There was no scleral icterus or corneal arcus. Mucous membranes were moist. Neck was supple and without jugular venous distension, thyromegaly, or carotid bruits. Carotids were easily palpable bilaterally. There was no adenopathy. Lungs sounds are diminished bilaterally along with scattered expiratory wheezes and rhonchi heard throughout the lung kinney and there is pronation of the expiratory phase of breathing. Cardiac exam revealed the PMI to be normally situated and sized. The rhythm was regular and no extrasystoles were noted during several minutes of auscultation. The first and second heart sounds were normal and physiologic splitting of the second heart sound was noted. There were no murmurs, rubs, clicks, or gallops. Abdominal exam revealed normal bowel sounds. The abdomen was soft, non-tender, and without masses, organomegaly, or appreciable enlargement of the abdominal aorta. Examination of the extremities revealed easily palpable radial, femoral and pedal pulses are diminished for now. There was no cyanosis, clubbing or edema. Neurologically the patient is sedated and is calm and comfortable withdraws to painful stimuli moving all 4 extremities and there is no cranial nerve deficits. Examination of the skin revealed no evidence of significant rashes, suspicious appearing nevi or other concerning lesions. - Labs CBC & Chem 7: 03/17/18 04:50 03/17/18 04:50 Labs: Abnormal Lab Results - Last 24 Hours (Table) 03/16/18 03/16/18 03/16/18 Range/Units 12:02 16:16 18:01 Neutrophils # (1.3-7.7) k/uL Lymphocytes # (1.0-4.8) k/uL ABG pH (7.35-7.45) ABG pCO2 (35-45) mmHg ABG pO2 (83-108) mmHg ABG HCO3 (21-25) mmol/L ABG Total CO2 (19-24) mmol/L ABG O2 Saturation (94-97) % Glucose (74-99) mg/dL POC Glucose (mg/dL) 107 H (75-99) mg/dL Troponin I 0.255 H* 0.498 H* (0.000-0.034) ng/mL 03/16/18 03/16/18 03/17/18 Range/Units 20:26 23:44 04:31 Neutrophils # (1.3-7.7) k/uL Lymphocytes # (1.0-4.8) k/uL ABG pH (7.35-7.45) ABG pCO2 (35-45) mmHg ABG pO2 (83-108) mmHg ABG HCO3 (21-25) mmol/L ABG Total CO2 (19-24) mmol/L ABG O2 Saturation (94-97) % Glucose (74-99) mg/dL POC Glucose (mg/dL) 117 H 115 H 124 H (75-99) mg/dL Troponin I (0.000-0.034) ng/mL 03/17/18 03/17/18 03/17/18 Range/Units 04:35 04:50 04:50 Neutrophils # 9.3 H (1.3-7.7) k/uL Lymphocytes # 0.7 L (1.0-4.8) k/uL ABG pH 7.28 L (7.35-7.45) ABG pCO2 59 H (35-45) mmHg ABG pO2 76 L (83-108) mmHg ABG HCO3 28 H (21-25) mmol/L ABG Total CO2 29 H (19-24) mmol/L ABG O2 Saturation 93.7 L (94-97) % Glucose 130 H (74-99) mg/dL POC Glucose (mg/dL) (75-99) mg/dL Troponin I (0.000-0.034) ng/mL 03/17/18 03/17/18 Range/Units 08:10 12:03 Neutrophils # (1.3-7.7) k/uL Lymphocytes # (1.0-4.8) k/uL ABG pH (7.35-7.45) ABG pCO2 (35-45) mmHg ABG pO2 (83-108) mmHg ABG HCO3 (21-25) mmol/L ABG Total CO2 (19-24) mmol/L ABG O2 Saturation (94-97) % Glucose (74-99) mg/dL POC Glucose (mg/dL) 129 H 162 H (75-99) mg/dL Troponin I (0.000-0.034) ng/mL Microbiology - Last 24 Hours (Table) 03/16/18 02:43 Blood Culture - Preliminary Blood No Growth after 24 hours 03/16/18 03:30 Gram Stain - Preliminary Sputum Sputum Culture - Preliminary Assessment and Plan Plan: Assessment 1 acute hypoxic respiratory failure, likely on the basis of COPD exacerbation/ left lower lobe pneumonia. On today's evaluation the patient remains intubated on a mechanical ventilator. Chest x-ray shows a component of pulmonary vessel congestion. No airspace disease. No significant respiratory secretions. Cultures of been all negative. Remains on a combination of Zosyn and Levaquin. 2 acute hypercapnic respiratory failure/acute respiratory respiratory acidosis, improving oxygenation and the patient is down to 40% FiO2. There is still a component of respiratory acidosis on today's blood gases. 3 acute lactic acidosis, recovered 4 congestion heart failure with an ejection fraction of 20% to 25% 5 hypotension, currently on IV fluids. Probably multifactorial. Rule out infection/sepsis with possibly a cardiogenic component to his evolving hypotension. The patient's hypotension is recovered. Currently on no pressors. 6 coronary artery disease with previous coronary intervention and stenting, please refer to the catheterization from 2017 7 previous history of nonsustained V. tach 8 previous history of DVT 9 peripheral vascular disease with a previous fem-fem bypass surgery 10 acute leukocytosis 11 hyperlipidemia 12 previous history of hypertension 13 restless leg syndrome 14 sciatica 15 smoker and this includes tobacco and marijuana Plan The patient will be given Lasix 40 mg IV push every 12 hours. Would optimize the fluid balance. I'm concerned that weaning him today and getting him off the mechanical ventilator with exacerbate his heart failure and pulmonary edema. For that reason, would like to take of some volume and optimize his fluid balance prior to proceeding with any weaning. Based on this, I started the patient on Lasix. We'll monitor urine output. We'll continue we'll cut down the on the fluids. We'll taken off the sedation at a later stage and check it was further weaning parameters and assess the patient's readiness to wean. May consider extubation today if he is able to demonstrate adequate weaning parameters and adequate spontaneous breathing trial. Continue current antibiotic coverage. Continue aspirin and Plavix and Lovenox. Continue steroids. Further recommendations to follow based on his progress. Critically care evaluation, more than 30 minutes. Time with Patient: Greater than 30
--- NOTE | 2018-03-17 13:51 | CONS ---
CONSULTATION DATE OF CONSULTATION: 03/16/2018 This patient currently is intubated and the history mostly obtained from the chart as well as from the nurse taking care of the patient. This patient is known to us from his previous cardiac history. Patient has a history of advanced COPD, prior history of coronary artery disease and ischemic cardiomyopathy. Patient underwent a stent to the RCA and obtuse marginal branch in 2015. At that time patient had an episode of sustained ventricular tachycardia. Patient has been treated medically since then. Patient has a history of smoking, hypertension. Patient came to the emergency room with acute respiratory distress. Patient was placed on CPAP on the route to the emergency room. Patient initial oxygen saturation was 70% and subsequently patient was intubated. PAST MEDICAL HISTORY: Includes history of advanced COPD, hyperlipidemia, hypertension, prior myocardial infarction. History of prior cardiac catheterization with stent to the obtuse marginal branch and the right coronary artery. Patient also has a history of peripheral vascular disease with a history of fem-fem bypass surgery and ischemic cardiomyopathy. Has a history of appendicectomy and bowel resection, HOME MEDICATIONS: Include Requip, ProAir, Ellipta, Lipitor 80 mg daily, Plavix 75 mg daily, DuoNeb, lisinopril HCT, metoprolol 12.5 mg b.i.d. and nitroglycerin and prednisone 10 mg daily. PHYSICAL EXAMINATION: Revealed patient to be intubated. Patient was afebrile. Patient's heart rate was 80 beats per minute. Blood pressure was 90-100 systolic. Patient currently is not getting any Levophed. HEENT and neck examinations were normal. HEART: First and second heart sounds were normal. Lungs reveal bilateral diminished air entry. Abdomen was soft. Extremities, peripheral pulses were 2+. Patient had a CTA of the chest which did not show any definite evidence of pulmonary embolism. There was bilateral emphysema and subsegmental atelectasis. Patient's echocardiogram done today shows again extensive wall motion abnormality and with ejection fraction of 25% to 30%. Patient's electrolytes are normal. Creatinine is 0.95. Patient's initial troponin was 0.016, subsequent troponins are 0.255 and 0.498. EKG does not show any acute ischemic changes. FINAL IMPRESSION: This patient has been admitted with acute respiratory distress with respiratory failure. Patient was severely hypoxic on arrival to the emergency room. Patient did not had any chest pain, suggestive of ischemia. Patient has a mild elevation in the troponin which is most likely secondary to acute respiratory syndrome and supply and demand mismatch. At present, there are no acute EKG changes suggestive of ischemia. We will recommend to continue the patient on aspirin and Plavix. Once the patient's blood pressure is stable, we will restart his Lopressor and Zestril. MMODL / IJN: [id number] /
--- NOTE | 2018-03-17 14:03 | PN ---
PROGRESS NOTE DATE OF SERVICE: 03/17/2018 This patient medical chart is reviewed. Patient has remains stable. Attempt is being made to wean the patient from the respirator. Patient is afebrile, heart rate is 93 per minute, blood pressure is 110/72 mmHg. First and second heart sounds are heard. Lungs examination reveals bilateral diminished air entry. Patient's hemoglobin is 13.6. White count is normal. Electrolytes are normal. Creatinine is normal. FINAL IMPRESSION: 1. Patient seems to be improving from acute on chronic respiratory failure. Patient with severe chronic obstructive pulmonary disease. 2. Mild ischemic cardiomyopathy. 3. Mild elevation in the troponin secondary to supply and demand mismatch, type 2 myocardial injury. RECOMMENDATIONS: We will start the patient on Lopressor 12.5 mg b.i.d. and as this patient's blood pressure remains stable, we will increase the Lopressor and add Zestril. MMODL / IJN: [id number] /
[2018-03-17 16:29] LABS: Glucose,Whole Blood 103 mg/dL (75-99)
[2018-03-17] MEDS: MORPHINE SULFATE 4 MG/ML SYRINGE IV PRN (17:22)
[2018-03-17] MEDS ORDERED: METOPROLOL TARTRATE 12.5 MG TAB OG-TUBE STA (18:02)
[2018-03-17 19:57] LABS: Glucose,Whole Blood 130 mg/dL (75-99)
[2018-03-17] MEDS: ATORVASTATIN 80 MG TAB PO SCH (20:25)
[2018-03-17] MEDS: METOPROLOL TARTRATE 12.5 MG TAB PO SCH (20:41)
[2018-03-17] MEDS ORDERED: Potassium Replacement Protocol 1 EACH MISC MISCELLANE PRN (22:11)
[2018-03-17] MEDS ORDERED: POTASSIUM BICARBONATE/CIT AC 20 MEQ TABLET.EFF NG-TUBE SCH (23:00)
[2018-03-17 23:50] LABS: Glucose,Whole Blood 137 mg/dL (75-99)
[2018-03-18] MEDS: MORPHINE SULFATE 4 MG/ML SYRINGE IV PRN ×2 (03:55→21:41)
[2018-03-18 04:24] LABS: Basophils % (A) 0 %; Eosinophils # (A) 0.1 k/uL (0-0.7); Eosinophils % (A) 0 %; HCT 43.1 % (39.0-53.0); HGB 13.6 gm/dL (13.0-17.5); Lymphocytes # (A) 0.6 k/uL (1.0-4.8); Lymphocytes % (A) 4 %; MCHC 31.5 g/dL (31.0-37.0); MCV 98.3 fL (80.0-100.0); Mean Platelet Volume 8.1; Monocytes # (A) 0.6 k/uL (0-1.0); Monocytes % (A) 4 %; Neutrophils # (A) 12.9 k/uL (1.3-7.7); Neutrophils % (A) 91 %; Platelet Count 194 k/uL (150-450); RBC 4.38 m/uL (4.30-5.90); RDW 13.4 % (11.5-15.5); WBC 14.3 k/uL (3.8-10.6)
[2018-03-18] MEDS: PROPOFOL 1,000 MG in EMPTY BAG 1 BAG IV SCH (04:30)
[2018-03-18 04:34] LABS: Glucose,Whole Blood 134 mg/dL (75-99)
[2018-03-18 04:37] LABS: ABG Base Excess 11.6 mmol/L; ABG HCO3 36 mmol/L (21-25); ABG Oxygen Saturation 90.6 % (94-97); ABG PCO2 55 mmHg (35-45); ABG PH 7.42 (7.35-7.45); ABG PO2 59 mmHg (83-108); ABG TCO2 38 mmol/L (19-24)
[2018-03-18] MEDS: INSULIN ASPART 100 UNIT/ML 1 ML 10 ML VIAL SQ SCH ×5 (04:38→20:41)
[2018-03-18 04:41] LABS: Calcium 8.9 mg/dL (8.4-10.2); Magnesium 2.6 mg/dL (1.6-2.3); Phosphorus 3.8 mg/dL (2.5-4.5); Potassium 3.9 mmol/L (3.5-5.1)
[2018-03-18] MEDS: methylPREDNISolone SOD SUCCI 125 MG/2 ML VIAL IV SCH ×3 (05:23→17:05)
[2018-03-18] MEDS ORDERED: POTASSIUM BICARBONATE/CIT AC 20 MEQ TABLET.EFF NG-TUBE SCH (06:00)
--- NOTE | 2018-03-18 07:20 | XR ---
EXAMINATION TYPE: XR chest 1V portable DATE OF EXAM: 03/18/2018 COMPARISON: 03/17/2018 HISTORY: Ventilatory dependent respiratory failure TECHNIQUE: Single frontal view of the chest is obtained. FINDINGS: Enteric tube, endotracheal tube, and left-sided PICC are unchanged in position. Heart is e nlarged. Extensive cardiac vascular calcification in the region of the left anterior descending coron heriberto artery or coronary graft is noted. Diffuse interstitial prominence on the prior exam is less cons picuous on today's examination. No focal consolidation, pleural effusion or pneumothorax. IMPRESSION: Improved aeration of the lungs with no focal opacity. Stable lines and tubes.
[2018-03-18] MEDS: IPRATROPIUM 0.5 MG/2.5 ML NEBU INHALATION SCH ×4 (08:00→19:33)
[2018-03-18] MEDS: IPRATROPIUM-ALBUTEROL 3 ML NEB INHALATION PRN ×4 (08:00→19:34)
[2018-03-18] MEDS: PIPERACILLIN-TAZOBACTAM 3.375 GM in DEXTROSE/WATER 1 50ML.BAG IVPB SCH ×3 (08:08→23:38)
[2018-03-18] MEDS: NICOTINE 21MG/24HR PATCH TRANSDERM SCH (08:08)
[2018-03-18] MEDS: ASPIRIN 81 MG PO SCH (08:09)
[2018-03-18] MEDS: CLOPIDOGREL 75 MG TAB PO SCH (08:09)
[2018-03-18] MEDS: ENOXAPARIN 40 MG/0.4 ML SYRINGE SQ SCH (08:09)
[2018-03-18] MEDS: CHLORHEXIDINE GLUCONATE 15 ML CUP MUCOUS MEM SCH (08:09)
[2018-03-18] MEDS: PANTOPRAZOLE 40 MG/10 ML VIAL IVP SCH (08:10)
[2018-03-18] MEDS: FUROSEMIDE 10 MG/ML 4 ML VIAL IV SCH ×2 (08:10→20:20)
[2018-03-18] MEDS: METOPROLOL TARTRATE 12.5 MG TAB PO SCH (08:10)
[2018-03-18 08:23] LABS: Glucose,Whole Blood 145 mg/dL (75-99)
[2018-03-18 09:06] LABS: ABG Base Excess 10.6 mmol/L; ABG HCO3 35 mmol/L (21-25); ABG Oxygen Saturation 94.8 % (94-97); ABG PCO2 54 mmHg (35-45); ABG PH 7.42 (7.35-7.45); ABG PO2 74 mmHg (83-108); ABG TCO2 37 mmol/L (19-24)
[2018-03-18] MEDS: LEVOFLOXACIN 750MG-D5W PMX 750 MG in DEXTROSE/WATER 1 150ML.BAG IVPB SCH (10:16)
--- NOTE | 2018-03-18 11:16 | PN ---
PROGRESS NOTE DATE OF SERVICE: 03/17/2018 PRESENTING COMPLAINT: Intubated. INTERVAL HISTORY: This patient was seen by me yesterday morning. Patient is in the ICU, intubated. Patient has had multiple medical problems including coronary artery disease. Patient admitted with acute hypoxic respiratory failure, felt to be COPD exacerbation and pneumonia and also had acute lactic acidosis and was hypotensive. Patient remains intubated, FiO2 is 40% and a PEEP of 5, having slight bloody secretions through his tracheostomy. Patient is on also Diprivan drip and IV Lasix. REVIEW OF SYSTEMS: Cannot be done, patient is intubated. CURRENT MEDICATIONS: Reviewed that include IV Diprivan and IV Lasix. PHYSICAL EXAMINATION: Temperature 98.3, pulse 76, respiration 24, blood pressure 115/53, pulse ox 95%. GENERAL APPEARANCE: Average build, lying in bed, intubated. EYES: Pupils equal, conjunctivae normal. HEENT: External appearance of nose and ears normal, oral cavity endotracheal tube in place. NECK: JVD unable to assess. Mass not palpable. RESPIRATORY: Effort increased. LUNGS: Decreased breath sounds. CARDIOVASCULAR: First and second sounds are normal. No edema. ABDOMEN: Soft, nontender. Liver and spleen not palpable. NEUROLOGICAL: Pupils are equal. No facial asymmetry. Otherwise, neuro is grossly intact. INVESTIGATIONS: White count 10.5, hemoglobin 13.6 potassium 4.4, BUN 15, creatinine 0.80. Chest x-ray, prominent pulmonary artery. Minor fluid prominence. ASSESSMENT: 1. Acute chronic obstructive pulmonary disease exacerbation. 2. Left lower lobe pneumonia, suspect gram-negative organism present on admission. 3. Acute hypercapnic respiratory failure. 4. Respiratory acidosis. 5. Acute lactic acidosis on presentation, improved. 6. Acute on chronic congestive heart failure exacerbation from systolic dysfunction, ejection fraction 20% to 25% from underlying coronary artery disease. 7. Peripheral arterial disease with a history of fem-fem bypass. 8. Hyperlipidemia. 9. Essential hypertension. 10.Restless legs syndrome. 11.Chronic rotator cuff injury. 12.Gastroesophageal reflux disease. PLAN: Patient remains critically ill. Care was discussed with the nurse. No family at the bedside. Continue supportive care including Diprivan. Other medications. Will follow closely. MMODL / IJN: [id number] /
[2018-03-18 11:49] LABS: Glucose,Whole Blood 113 mg/dL (75-99)
--- NOTE | 2018-03-18 13:27 | P.PN ---
Subjective Progress Note Date: 03/18/18 Is a 67-year-old male patient with known history of advanced COPD, previous history of coronary artery disease and coronary stenting, congestion heart failure with an ejection fraction of 20-25%, previous history of sustained ventricular tachycardia along with history of smoking, hypertension and hyperlipidemia. The patient's last evaluation in the hospital was in February 2017 and at that time the patient underwent successful stenting of the ostial proximal up to is marginal branch, OM1, in addition to successful stenting of the proximal right coronary artery. The patient came into the emergency department this morning with acute respiratory distress. He was brought in via EMS. He was very hypoxic at home and his pulse ox was 70%. He was placed on CPAP on the Route and in the emergency department the patient had a blood gas that showed severe a stress and he was placed on BiPAP to which she failed and subsequently he was intubated and placed on mechanical ventilator. Post intubation blood gases showed a pH of 7.06 with a pCO2 of 85 and pO2 of 400. Based on this, the patient was placed on assist control mode at the rate of 24, tidal volume was 500 with an FiO2 dropped down to 50% and a rate of 24 and a PEEP of 5. Post this, blood gases were done and showed a pH of 7.25 with a pCO2 of 57 and pO2 133. Currently the patient is hypotensive and the blood pressure in the mid 80s. He was given a total of 2 L of lactated Ringer. He is on no pressors for the time being. His white cell count was at 15.6. He had a lactic acid level of 6.0. The proBNP level was 4000. First set of troponin was 0.016. Rest of the blood work and electrolytes are within normal limits and the blood sugar was at 260. D-dimer was at 2.55. CT angios the chest was done in the emergency department and the CAT scan showed diffuse centrilobular emphysema paraseptal emphysema. There is evidence of bibasilar subsegmental atelectasis. Patchy left basilar infiltrate. No pleural effusion. No evidence of any pulmonary edema. No evidence of any pulmonary embolism. ET tube was in good location. Currently the patient is sedated and is confident comfortable. He is synchronous with the mechanical ventilator. He is currently on 30 mics of propofol and the patient is also receiving normal saline today to follow 25 mL an hour. Urine output is in order of 10-15 mL an hour. On today's evaluation of 03/17/2018, the patient is being seen for a follow-up. The patient was in acute respiratory failure secondary to COPD and CHF exacerbation. On today's evaluation remains sedated and is calm and comfortable. He is easily arousable once off sedation. The patient remains on a mechanical ventilator on assist control mode at the rate of 24, FiO2 is down to 40% with a 5 of PEEP and a tidal volume of 500 with a rate of 24. The chest x-ray from today shows a component of pulmonary vessel congestion/edema. Noted the patient has underlying cardiomyopathy with an ejection fraction of 20-25%. ET tube is in a good location and the patient has a left subclavian triple lumen catheter with position being in a mid SVC an 80 to be also in good location. No significant airspace disease or infiltrates. The patient remains on a combination of Zosyn and Levaquin. The patient is receiving DuoNeb neb last treatment [id number] and the patient is also on IV Solu Medrol 60 mg every 6 hours. Peak airway pressures around 2324. The patient is not showing any significant bronchospasm and wheezing on today's evaluation. He is receiving IV fluids. He is hemodynamically stable. He is not requiring any pressors. Echocardiogram results were noted. No evidence of any bleeding from his stomachtube is in place. On 03/18/2018 the patient is being seen for a follow-up. This morning, the patient is still on Diprivan. He was an assist-control mode with essentially the same vent setting with an FiO2 brought up to 50% based on the pO2 that was barely below 60. Nevertheless, the patient had no significant elevation of the peak and static pressures. Some looseness for secretions were seen and orotracheal tube and these were being suctioned out by respiratory therapy. No fever. No chills. Chest x-ray shows some mild pulmonary vascular congestion. The patient is still on Lasix 40 g I push every 12 hours and the patient is a negative fluid balance. The patient is also being covered with a combination of Zosyn and Levaquin for bilateral lower lobe pneumonia. The patient is hemodynamically stable. The patient is on bronchodilators and the patient is on IV Solu-Medrol in addition. Noted the patient has impaired heart function based on the echo and ejection fraction is around 20%. The patient has no significant arrhythmias. Cardiac rhythm is sinus. Afebrile. He is still nothing by mouth for now. Based on all this, I took the patient off propofol and the patient was found to have adequate weaning parameters with a rapid shallow breathing index of 70. Subsequently the patient was given a spontaneous breathing trial with a pressure support of 5 and a PEEP of 5. The blood gases at that point showed a pH of 7.42 with a pCO2 of 54 and pO2 of 74 and this was done and FiO2 of 50%. At that point, the patient was extubated and the patient is currently on high flow oxygen at 10 L/m nasal cannula. Sputum analysis collected earlier showed strep pneumo. Objective - Vital Signs Vital signs: Vital Signs Temp 97.8 F 03/18/18 13:00 Pulse 94 03/18/18 13:00 Resp 24 03/18/18 13:00 BP 129/73 03/18/18 13:00 Pulse Ox 98 03/18/18 13:00 Intake & Output 03/17/18 03/18/18 03/18/18 18:59 06:59 18:59 Intake Total 1174.93 1124.38 394 Output Total 2550 1515 855 Balance -1375.07 -390.62 -461 Weight 87.3 kg 82.3 kg 82.3 kg Intake: IV 877.0 283.0 0.9 at KVO 130 130 Levofloxacin 750Mg-D5w 150 Pmx 750 mg In Dextrose/ Water 1 150ml.bag @ 100 mls/hr IVPB Q24H [facility] Rx#: [id number] Magnesium Sulfate-D5w Pmx 200 1 gm In Dextrose/Water 1 100ml.bag @ 100 mls/hr IVPB Q1H [facility] Rx#: [id number] Piperacillin-Tazobactam 3 75.0 75.0 .375 gm In Dextrose/Water 1 50ml.bag @ 12.5 mls/hr IVPB Q8HR [facility] Rx#: [id number] Pressure bags of Nomal 72 78 Saline for CVP & Daily Sodium Chloride 0.9% 1, 250 000 ml @ 125 mls/hr IV . Q8H [facility] Rx#:[id number] Sodium Chloride 0.9% 1, 0 000 ml @ 50 mls/hr IV . Q20H [facility] Rx#:[id number] Intake, IV Titration 207.93 246.38 84 Amount Propofol 1,000 mg In 207.93 246.38 84 Empty Bag 1 bag @ Titrate IV .Q0M [facility] Rx#: [id number] Oral 200 Tube Feeding 60 535 110 Other 30 60 Output: Gastric Drainage 200 Urine 2350 1515 855 Other: Voiding Method Indwelling Catheter Indwelling Catheter Indwelling Catheter ABP, PAP, CO, CI - Last Documented Arterial Blood Pressure 148/70 Pulmonary Artery Pressure 0/0 - Exam Patient is extubated, comfortable awake on high flow oxygen at 10 L/m nasal cannula. No signs of any respiratory distress. Head exam was generally normal. There was no scleral icterus or corneal arcus. Mucous membranes were moist. Examination neck shows positive JVDs and there is no goiter or neck masses. No lymphadenopathy. No thrush. Lungs sounds are diminished bilaterally along with some scattered rhonchi and scattered expiratory wheezes without the lung kinney. Cardiac exam revealed the PMI to be normally situated and sized. The rhythm was regular and no extrasystoles were noted during several minutes of auscultation. The first and second heart sounds were normal and physiologic splitting of the second heart sound was noted. There were no murmurs, rubs, clicks, or gallops. Abdominal exam revealed normal bowel sounds. The abdomen was soft, non-tender, and without masses, organomegaly, or appreciable enlargement of the abdominal aorta. Examination of the extremities revealed easily palpable radial, femoral and pedal pulses. There was no cyanosis, clubbing or edema. Examination of the skin revealed no evidence of significant rashes, suspicious appearing nevi or other concerning lesions. Neurologically the patient is awake and alert and following commands and answering questions appropriately. He is moving all 4 extremities without any limitation. - Labs CBC & Chem 7: 03/18/18 04:00 03/18/18 04:00 Labs: Abnormal Lab Results - Last 24 Hours (Table) 03/17/18 03/17/18 03/17/18 Range/Units 16:28 19:55 23:49 WBC (3.8-10.6) k/uL Neutrophils # (1.3-7.7) k/uL Lymphocytes # (1.0-4.8) k/uL ABG pCO2 (35-45) mmHg ABG pO2 (83-108) mmHg ABG HCO3 (21-25) mmol/L ABG Total CO2 (19-24) mmol/L ABG O2 Saturation (94-97) % Carbon Dioxide (22-30) mmol/L BUN (9-20) mg/dL Glucose (74-99) mg/dL POC Glucose (mg/dL) 103 H 130 H 137 H (75-99) mg/dL Magnesium (1.6-2.3) mg/dL 03/18/18 03/18/18 03/18/18 Range/Units 04:00 04:00 04:32 WBC 14.3 H (3.8-10.6) k/uL Neutrophils # 12.9 H (1.3-7.7) k/uL Lymphocytes # 0.6 L (1.0-4.8) k/uL ABG pCO2 55 H (35-45) mmHg ABG pO2 59 L (83-108) mmHg ABG HCO3 36 H (21-25) mmol/L ABG Total CO2 38 H (19-24) mmol/L ABG O2 Saturation 90.6 L (94-97) % Carbon Dioxide 33 H (22-30) mmol/L BUN 28 H (9-20) mg/dL Glucose 158 H (74-99) mg/dL POC Glucose (mg/dL) (75-99) mg/dL Magnesium 2.6 H (1.6-2.3) mg/dL 03/18/18 03/18/18 03/18/18 Range/Units 04:32 08:21 09:04 WBC (3.8-10.6) k/uL Neutrophils # (1.3-7.7) k/uL Lymphocytes # (1.0-4.8) k/uL ABG pCO2 54 H (35-45) mmHg ABG pO2 74 L (83-108) mmHg ABG HCO3 35 H (21-25) mmol/L ABG Total CO2 37 H (19-24) mmol/L ABG O2 Saturation (94-97) % Carbon Dioxide (22-30) mmol/L BUN (9-20) mg/dL Glucose (74-99) mg/dL POC Glucose (mg/dL) 134 H 145 H (75-99) mg/dL Magnesium (1.6-2.3) mg/dL 05/09/18 Range/Units 11:48 WBC (3.8-10.6) k/uL Neutrophils # (1.3-7.7) k/uL Lymphocytes # (1.0-4.8) k/uL ABG pCO2 (35-45) mmHg ABG pO2 (83-108) mmHg ABG HCO3 (21-25) mmol/L ABG Total CO2 (19-24) mmol/L ABG O2 Saturation (94-97) % Carbon Dioxide (22-30) mmol/L BUN (9-20) mg/dL Glucose (74-99) mg/dL POC Glucose (mg/dL) 113 H (75-99) mg/dL Magnesium (1.6-2.3) mg/dL Microbiology - Last 24 Hours (Table) 03/16/18 03:30 Gram Stain - Final Sputum Sputum Culture - Preliminary Streptococcus pneumoniae 03/16/18 02:43 Blood Culture - Preliminary Blood No Growth after 48 hours Assessment and Plan Plan: Assessment 1 acute hypoxic respiratory failure, likely on the basis of COPD exacerbation/ left lower lobe pneumonia. The patient is post intubation mechanical ventilation for bilateral pneumonia and hypoxic respiratory failure. The sputum analysis showed Streptococcus pneumonia and the patient is currently on a combination of Zosyn and Levaquin. The patient was weaned off the mechanical ventilator and the patient was extubated without any major difficulties and currently is on high flow oxygen 10 L/m nasal cannula. Chest x-ray shows improved aeration of both lungs without any focal opacity. 2 acute hypercapnic respiratory failure/acute respiratory respiratory acidosis, improving oxygenation and the patient was extubated today and currently on high flow oxygen 10 L 3 acute lactic acidosis, recovered 4 congestion heart failure with an ejection fraction of 20% to 25% 5 hypotension, recovered with fluid resuscitation and pressors. The patient was probably septic at time of admission with a component of cardiogenic component to his hypotension. 6 coronary artery disease with previous coronary intervention and stenting, please refer to the catheterization from 2017 7 previous history of nonsustained V. tach 8 previous history of DVT 9 peripheral vascular disease with a previous fem-fem bypass surgery 10 acute leukocytosis, white cell count is still elevated at 14.3 11 hyperlipidemia 12 previous history of hypertension 13 restless leg syndrome 14 sciatica 15 smoker and this includes tobacco and marijuana Plan Keep the patient extubated for now. Wean down the FiO2 as tolerated to maintain a saturation above 90%. The patient was found to have strep pneumonia his lungs. The patient is currently on a combination of Zosyn and Levaquin. Continue same treatment. Continue bronchodilators. Give the patient IV Lasix 40 minutes every 12 hours. Optimize the volume balance. The patient incentive spirometer. Provide a later stage. We'll continue to follow and make further recommendations based on the progress. This evaluation was done and more than 30 minutes including the weaning process in the extubation process. The patient will be kept in ICU for another 24 hours. Time with Patient: Greater than 30
--- NOTE | 2018-03-18 13:31 | PN ---
PROGRESS NOTE This patient was admitted with acute respiratory distress and was on the ventilator. Patient is extubated today. He is more alert and awake. He is a confused. Patient is afebrile. Blood pressure is 150/80 mmHg. Respirations are not labored. HEART: S1 and S2 normal. Lungs reveal bilateral scattered wheezes. Arterial blood gases shows pH is 7.42, pCO2 of 54, PO2 is 74, patient's creatinine is 1.2. The patient does have a ischemic cardiomyopathy. We will restart the patient's Zestril and increase the Lopressor to 25 mg b.i.d. MMODL / STEWN: [id number] /
[2018-03-18] MEDS: LISINOPRIL 10 MG TAB PO SCH (15:32)
[2018-03-18 16:56] LABS: Glucose,Whole Blood 123 mg/dL (75-99)
[2018-03-18] MEDS: METOPROLOL TARTRATE 25 MG TAB PO SCH (20:20)
[2018-03-18] MEDS: ATORVASTATIN 80 MG TAB PO SCH (20:20)
[2018-03-18 20:38] LABS: Glucose,Whole Blood 154 mg/dL (75-99)
--- NOTE | 2018-03-18 20:43 | PN ---
PROGRESS NOTE DATE OF SERVICE: 03/18/2018 PRESENTING COMPLAINT: Short of breath. INTERVAL HISTORY: This patient was in the ICU and was intubated for acute respiratory failure from COPD exacerbation and pneumonia. The patient also had lactic acidosis and was hypertensive. The patient was extubated this morning, lethargic but able answer simple questions. Having PVCs on the telemetry. REVIEW OF SYSTEMS: Attempted for constitutional, cardiovascular, GI, pulmonary, the patient short of breath. CURRENT MEDICATIONS: Reviewed that include DuoNeb, IV Lasix, IV Levaquin, IV Solu-Medrol, IV Zosyn. PHYSICAL EXAMINATION: Temperature 98.2, pulse 102, respirations 20, blood pressure 122/78, pulse ox 96% oxygen. GENERAL APPEARANCE: Sitting up in bed, awake, lethargic, but answering questions. EYES: Pupils equal. Conjunctivae normal . HEENT: External appearance of nose and ears normal. Oral cavity normal. NECK: JVD unable to assess. Mass not palpable. Respiratory effort increased. LUNGS: Decreased breath sounds. Prolonged expiration. ABDOMEN: Soft, nontender. Liver and spleen not palpable. PSYCHIATRY: Awake, answering simple questions. Mood and affect slightly low. INVESTIGATIONS: White count 14.3, hemoglobin 13.6, potassium 3.9, BUN 28, creatinine 1.10. Chest x-ray reports improved aeration. ASSESSMENT: 1. Acute chronic obstructive pulmonary disease exacerbation. 2. Left lower lobe pneumonia, suspect gram-negative organism, present on admission. 3. Acute hypercapnic respiratory failure, status post being on ventilator support. 4. Acute respiratory acidosis. 5. Acute lactic acidosis on admission improved. 6. [id number]-ds-[id number] congestive heart failure exacerbation from systolic dysfunction, ejection fracture 20% to 25%, underlying coronary artery disease. 7. Peripheral arterial disease, prior history of fem-fem bypass. 8. Hyperlipidemia. 9. Essential hypertension. 10.Restless legs syndrome. 11.Chronic rotator cuff injury. 12.Gastroesophageal reflux disease. PLAN: Patient has shown some improvement. Overall prognosis remains guarded. Care was discussed with the patient. Continue current medication. we will scale back a bit on the Solu-Medrol dose. Continue with antibiotics. MMODL / IJN: [id number] /
[2018-03-18] MEDS: methylPREDNISolone SOD SUCCI 40 MG/ML 1 ML VIAL IV SCH (23:34)
[2018-03-19 05:07] LABS: Basophils % (A) 0 %; Eosinophils # (A) 0.2 k/uL (0-0.7); Eosinophils % (A) 1 %; HCT 42.4 % (39.0-53.0); HGB 13.8 gm/dL (13.0-17.5); Lymphocytes # (A) 0.8 k/uL (1.0-4.8); Lymphocytes % (A) 6 %; MCH 31.4 pg (25.0-35.0); MCHC 32.5 g/dL (31.0-37.0); MCV 96.8 fL (80.0-100.0); Mean Platelet Volume 8.8; Monocytes # (A) 0.6 k/uL (0-1.0); Monocytes % (A) 4 %; Neutrophils # (A) 12.7 k/uL (1.3-7.7); Neutrophils % (A) 88 %; Platelet Count 169 k/uL (150-450); RBC 4.37 m/uL (4.30-5.90); RDW 13.3 % (11.5-15.5); WBC 14.3 k/uL (3.8-10.6)
[2018-03-19 05:16] LABS: Anion Gap 11 mmol/L; Blood Urea Nitrogen 33 mg/dL (9-20); Calcium 8.9 mg/dL (8.4-10.2); Carbon Dioxide 36 mmol/L (22-30); Chloride 94 mmol/L (98-107); Glucose 122 mg/dL (74-99); Magnesium 2.3 mg/dL (1.6-2.3); Phosphorus 4.2 mg/dL (2.5-4.5); Sodium 141 mmol/L (137-145)
[2018-03-19] MEDS: MORPHINE SULFATE 4 MG/ML SYRINGE IV PRN (05:23)
[2018-03-19 06:33] LABS: Glucose,Whole Blood 110 mg/dL (75-99)
--- NOTE | 2018-03-19 07:05 | XR ---
EXAMINATION TYPE: XR chest 1V portable DATE OF EXAM: 03/19/2018 CLINICAL HISTORY: Difficulty breathing progress study. TECHNIQUE: Single AP portable upright view of the chest is obtained. COMPARISON: Chest x-ray from one day earlier and older studies. CTA chest from 3 days ago. FINDINGS: There is stable left subclavian central venous catheter. There is interval extubation with removal of endotracheal and orogastric tubes. There is persistent chronic parenchymal change without suspicious new focal airspace opacity, pleural effusion, or pneumothorax seen bilaterally. Cardiac s ilhouette size is within normal limits with atherosclerotic thoracic aorta. Osseous structures are de mineralized. Degenerative change right glenohumeral joint is present. IMPRESSION: Interval extubation. Background chronic emphysematous change without acute pulmonary proc ess identified currently.
[2018-03-19] MEDS: IPRATROPIUM 0.5 MG/2.5 ML NEBU INHALATION SCH (07:18)
[2018-03-19] MEDS: INSULIN ASPART 100 UNIT/ML 1 ML 10 ML VIAL SQ SCH ×4 (07:37→21:21)
[2018-03-19] MEDS: methylPREDNISolone SOD SUCCI 40 MG/ML 1 ML VIAL IV SCH ×2 (07:41→15:20)
[2018-03-19] MEDS: PIPERACILLIN-TAZOBACTAM 3.375 GM in DEXTROSE/WATER 1 50ML.BAG IVPB SCH (07:42)
[2018-03-19] MEDS: FUROSEMIDE 10 MG/ML 4 ML VIAL IV SCH ×2 (08:03→20:24)
[2018-03-19] MEDS: ENOXAPARIN 40 MG/0.4 ML SYRINGE SQ SCH (08:04)
[2018-03-19] MEDS: CLOPIDOGREL 75 MG TAB PO SCH (08:04)
[2018-03-19] MEDS: METOPROLOL TARTRATE 25 MG TAB PO SCH (08:04)
[2018-03-19] MEDS: ASPIRIN 81 MG PO SCH (08:04)
[2018-03-19] MEDS: NICOTINE 21MG/24HR PATCH TRANSDERM SCH (08:04)
[2018-03-19] MEDS: LISINOPRIL 10 MG TAB PO SCH (08:04)
[2018-03-19] MEDS: PANTOPRAZOLE 40 MG/10 ML VIAL IVP SCH (08:05)
[2018-03-19] MEDS: IPRATROPIUM-ALBUTEROL 3 ML NEB INHALATION SCH ×4 (08:07→18:59)
[2018-03-19] MEDS ORDERED: MORPHINE ORAL SOLN 10 MG/5 ML CUP PO PRN (09:57)
[2018-03-19] MEDS: LEVOFLOXACIN 750 MG TAB PO SCH (09:58)
[2018-03-19 10:23] VITALS: BMI 24.0
[2018-03-19 11:09] LABS: Glucose,Whole Blood 113 mg/dL (75-99)
--- NOTE | 2018-03-19 13:20 | P.PN ---
Subjective Patient is feeling well. Blood pressure was elevated in the morning. But he is comfortable now. No respiratory distress is noted. Objective - Vital Signs Vital signs: Vital Signs Temp 98.2 F 03/19/18 13:00 Pulse 87 03/19/18 13:00 Resp 22 03/19/18 13:00 BP 131/62 03/19/18 13:00 Pulse Ox 97 03/19/18 13:00 Intake & Output 03/18/18 03/19/18 03/19/18 18:59 06:59 18:59 Intake Total 394 682 500 Output Total 1155 1560 925 Balance -761 -878 -425 Weight 82.3 kg 80.3 kg 80.3 kg Intake: IV 322 0.9 at KVO 200 Piperacillin-Tazobactam 3 50 .375 gm In Dextrose/Water 1 50ml.bag @ 12.5 mls/hr IVPB Q8HR [facility] Rx#: [id number] Pressure bags of Nomal 72 Saline for CVP & Daily Intake, IV Titration 84 Amount Propofol 1,000 mg In 84 Empty Bag 1 bag @ Titrate IV .Q0M [facility] Rx#: [id number] Oral 200 360 500 Tube Feeding 110 Output: Urine 1155 1560 925 Other: Voiding Method Indwelling Catheter Indwelling Catheter Indwelling Catheter ABP, PAP, CO, CI - Last Documented Arterial Blood Pressure 133/52 Pulmonary Artery Pressure 0/0 - Exam Patient's vital signs are reviewed. The patient is alert awake and in no acute distress. HEENT negative. Neck-supple no increase in JVP noted no carotid bruits noted. Chest-symmetrical. Heart-first and second heart sounds are normal. No S3 or S4 is noted. No significant murmurs are noted. Lungs bilateral good at entry is noted. Bilateral rhonchi noted Abdomen-soft. Liver and spleen are not enlarged. The bowel sounds are normal. No tenderness noted Extremities-peripheral pulses since are 2+. No significant leg edema noted. Neuro-no significant gross abnormality noted. - Labs CBC & Chem 7: 03/19/18 05:00 03/19/18 05:00 Labs: Abnormal Lab Results - Last 24 Hours (Table) 03/18/18 03/18/18 03/19/18 Range/Units 16:52 20:36 05:00 WBC 14.3 H (3.8-10.6) k/uL Neutrophils # 12.7 H (1.3-7.7) k/uL Lymphocytes # 0.8 L (1.0-4.8) k/uL D-Dimer (<0.60) mg/L FEU Chloride (98-107) mmol/L Carbon Dioxide (22-30) mmol/L BUN (9-20) mg/dL Glucose (74-99) mg/dL POC Glucose (mg/dL) 123 H 154 H (75-99) mg/dL 03/19/18 03/19/18 03/19/18 Range/Units 05:00 06:32 07:20 WBC (3.8-10.6) k/uL Neutrophils # (1.3-7.7) k/uL Lymphocytes # (1.0-4.8) k/uL D-Dimer 2.54 H (<0.60) mg/L FEU Chloride 94 L (98-107) mmol/L Carbon Dioxide 36 H (22-30) mmol/L BUN 33 H (9-20) mg/dL Glucose 122 H (74-99) mg/dL POC Glucose (mg/dL) 110 H (75-99) mg/dL 03/19/18 Range/Units 11:07 WBC (3.8-10.6) k/uL Neutrophils # (1.3-7.7) k/uL Lymphocytes # (1.0-4.8) k/uL D-Dimer (<0.60) mg/L FEU Chloride (98-107) mmol/L Carbon Dioxide (22-30) mmol/L BUN (9-20) mg/dL Glucose (74-99) mg/dL POC Glucose (mg/dL) 113 H (75-99) mg/dL Microbiology - Last 24 Hours (Table) 03/16/18 03:30 Gram Stain - Final Sputum Sputum Culture - Final Streptococcus pneumoniae 03/16/18 02:43 Blood Culture - Preliminary Blood No Growth after 72 hours Assessment and Plan Assessment: Patient's the acute respiratory failure has improved patient has probably mild congestive heart failure. I we will increase the dose of Lopressor to 50 mg twice a day the discontinue the Zestoretic from tonight we will start the patient on and Crestor 24/26 mg twice a day from tomorrow.
--- NOTE | 2018-03-19 14:34 | P.PN ---
Subjective Progress Note Date: 03/19/18 Is a 67-year-old male patient with known history of advanced COPD, previous history of coronary artery disease and coronary stenting, congestion heart failure with an ejection fraction of 20-25%, previous history of sustained ventricular tachycardia along with history of smoking, hypertension and hyperlipidemia. The patient's last evaluation in the hospital was in February 2017 and at that time the patient underwent successful stenting of the ostial proximal up to is marginal branch, OM1, in addition to successful stenting of the proximal right coronary artery. The patient came into the emergency department this morning with acute respiratory distress. He was brought in via EMS. He was very hypoxic at home and his pulse ox was 70%. He was placed on CPAP on the Route and in the emergency department the patient had a blood gas that showed severe a stress and he was placed on BiPAP to which she failed and subsequently he was intubated and placed on mechanical ventilator. Post intubation blood gases showed a pH of 7.06 with a pCO2 of 85 and pO2 of 400. Based on this, the patient was placed on assist control mode at the rate of 24, tidal volume was 500 with an FiO2 dropped down to 50% and a rate of 24 and a PEEP of 5. Post this, blood gases were done and showed a pH of 7.25 with a pCO2 of 57 and pO2 133. Currently the patient is hypotensive and the blood pressure in the mid 80s. He was given a total of 2 L of lactated Ringer. He is on no pressors for the time being. His white cell count was at 15.6. He had a lactic acid level of 6.0. The proBNP level was 4000. First set of troponin was 0.016. Rest of the blood work and electrolytes are within normal limits and the blood sugar was at 260. D-dimer was at 2.55. CT angios the chest was done in the emergency department and the CAT scan showed diffuse centrilobular emphysema paraseptal emphysema. There is evidence of bibasilar subsegmental atelectasis. Patchy left basilar infiltrate. No pleural effusion. No evidence of any pulmonary edema. No evidence of any pulmonary embolism. ET tube was in good location. Currently the patient is sedated and is confident comfortable. He is synchronous with the mechanical ventilator. He is currently on 30 mics of propofol and the patient is also receiving normal saline today to follow 25 mL an hour. Urine output is in order of 10-15 mL an hour. On today's evaluation of 03/17/2018, the patient is being seen for a follow-up. The patient was in acute respiratory failure secondary to COPD and CHF exacerbation. On today's evaluation remains sedated and is calm and comfortable. He is easily arousable once off sedation. The patient remains on a mechanical ventilator on assist control mode at the rate of 24, FiO2 is down to 40% with a 5 of PEEP and a tidal volume of 500 with a rate of 24. The chest x-ray from today shows a component of pulmonary vessel congestion/edema. Noted the patient has underlying cardiomyopathy with an ejection fraction of 20-25%. ET tube is in a good location and the patient has a left subclavian triple lumen catheter with position being in a mid SVC an 80 to be also in good location. No significant airspace disease or infiltrates. The patient remains on a combination of Zosyn and Levaquin. The patient is receiving DuoNeb neb last treatment [id number] and the patient is also on IV Solu Medrol 60 mg every 6 hours. Peak airway pressures around 2324. The patient is not showing any significant bronchospasm and wheezing on today's evaluation. He is receiving IV fluids. He is hemodynamically stable. He is not requiring any pressors. Echocardiogram results were noted. No evidence of any bleeding from his stomachtube is in place. On 03/18/2018 the patient is being seen for a follow-up. This morning, the patient is still on Diprivan. He was an assist-control mode with essentially the same vent setting with an FiO2 brought up to 50% based on the pO2 that was barely below 60. Nevertheless, the patient had no significant elevation of the peak and static pressures. Some looseness for secretions were seen and orotracheal tube and these were being suctioned out by respiratory therapy. No fever. No chills. Chest x-ray shows some mild pulmonary vascular congestion. The patient is still on Lasix 40 g I push every 12 hours and the patient is a negative fluid balance. The patient is also being covered with a combination of Zosyn and Levaquin for bilateral lower lobe pneumonia. The patient is hemodynamically stable. The patient is on bronchodilators and the patient is on IV Solu-Medrol in addition. Noted the patient has impaired heart function based on the echo and ejection fraction is around 20%. The patient has no significant arrhythmias. Cardiac rhythm is sinus. Afebrile. He is still nothing by mouth for now. Based on all this, I took the patient off propofol and the patient was found to have adequate weaning parameters with a rapid shallow breathing index of 70. Subsequently the patient was given a spontaneous breathing trial with a pressure support of 5 and a PEEP of 5. The blood gases at that point showed a pH of 7.42 with a pCO2 of 54 and pO2 of 74 and this was done and FiO2 of 50%. At that point, the patient was extubated and the patient is currently on high flow oxygen at 10 L/m nasal cannula. Sputum analysis collected earlier showed strep pneumo. On 03/19/2019 the patient is being seen for a follow-up. The patient was extubated successfully yesterday without any major difficulties. Overnight he was doing well and earlier this morning the patient became diaphoretic and more short of breath and bronchospastic and wheezy. His chest x-ray shows pulmonary vessel congestion. No consolidation or airspace disease. The sputum culture has shown Streptococcus pneumonia and the patient is still and accommodation of Zosyn and Levaquin. The patient on IV Lasix 40 minutes every 12 hours and is in a negative fluid balance. Still on bronchodilators. He'll IV Solu-Medrol. Ejection fraction is around 20%. No signs of delirium tremens and the patient is tolerating diet this morning. He does have a mild cough with congestion his chest. No fever. No chills. No altered mentation. No agitation. The patient has no other complaints otherwise for now. Objective - Vital Signs Vital signs: Vital Signs Temp 98 F 03/19/18 14:00 Pulse 100 03/19/18 14:00 Resp 22 03/19/18 14:00 BP 131/62 03/19/18 14:00 Pulse Ox 96 03/19/18 14:00 Intake & Output 03/18/18 03/19/18 03/19/18 18:59 06:59 18:59 Intake Total 394 682 500 Output Total 1155 1560 1000 Balance -761 -878 -500 Weight 82.3 kg 80.3 kg 80.3 kg Intake: IV 322 0.9 at KVO 200 Piperacillin-Tazobactam 3 50 .375 gm In Dextrose/Water 1 50ml.bag @ 12.5 mls/hr IVPB Q8HR [facility] Rx#: [id number] Pressure bags of Nomal 72 Saline for CVP & Daily Intake, IV Titration 84 Amount Propofol 1,000 mg In 84 Empty Bag 1 bag @ Titrate IV .Q0M [facility] Rx#: [id number] Oral 200 360 500 Tube Feeding 110 Output: Urine 1155 1560 1000 Other: Voiding Method Indwelling Catheter Indwelling Catheter Indwelling Catheter ABP, PAP, CO, CI - Last Documented Arterial Blood Pressure 120/44 Pulmonary Artery Pressure 0/0 - Exam Patient is laying down comfortably in bed. No signs of any acute respiratory distress. Head exam was generally normal. There was no scleral icterus or corneal arcus. Mucous membranes were moist. Examination neck shows positive JVDs and there is no goiter or neck masses. No lymphadenopathy. No thrush. Lungs sounds are diminished bilaterally along with some scattered rhonchi and scattered expiratory wheezes without the lung kinney. Cardiac exam revealed the PMI to be normally situated and sized. The rhythm was regular and no extrasystoles were noted during several minutes of auscultation. The first and second heart sounds were normal and physiologic splitting of the second heart sound was noted. There were no murmurs, rubs, clicks, or gallops. Abdominal exam revealed normal bowel sounds. The abdomen was soft, non-tender, and without masses, organomegaly, or appreciable enlargement of the abdominal aorta. Examination of the extremities revealed easily palpable radial, femoral and pedal pulses. There was no cyanosis, clubbing or edema. Examination of the skin revealed no evidence of significant rashes, suspicious appearing nevi or other concerning lesions. Neurologically the patient is awake and alert and following commands - Labs CBC & Chem 7: 03/19/18 05:00 03/19/18 05:00 Labs: Abnormal Lab Results - Last 24 Hours (Table) 03/18/18 03/18/18 03/19/18 Range/Units 16:52 20:36 05:00 WBC 14.3 H (3.8-10.6) k/uL Neutrophils # 12.7 H (1.3-7.7) k/uL Lymphocytes # 0.8 L (1.0-4.8) k/uL D-Dimer (<0.60) mg/L FEU Chloride (98-107) mmol/L Carbon Dioxide (22-30) mmol/L BUN (9-20) mg/dL Glucose (74-99) mg/dL POC Glucose (mg/dL) 123 H 154 H (75-99) mg/dL 03/19/18 03/19/18 03/19/18 Range/Units 05:00 06:32 07:20 WBC (3.8-10.6) k/uL Neutrophils # (1.3-7.7) k/uL Lymphocytes # (1.0-4.8) k/uL D-Dimer 2.54 H (<0.60) mg/L FEU Chloride 94 L (98-107) mmol/L Carbon Dioxide 36 H (22-30) mmol/L BUN 33 H (9-20) mg/dL Glucose 122 H (74-99) mg/dL POC Glucose (mg/dL) 110 H (75-99) mg/dL 03/19/18 Range/Units 11:07 WBC (3.8-10.6) k/uL Neutrophils # (1.3-7.7) k/uL Lymphocytes # (1.0-4.8) k/uL D-Dimer (<0.60) mg/L FEU Chloride (98-107) mmol/L Carbon Dioxide (22-30) mmol/L BUN (9-20) mg/dL Glucose (74-99) mg/dL POC Glucose (mg/dL) 113 H (75-99) mg/dL Microbiology - Last 24 Hours (Table) 03/16/18 03:30 Gram Stain - Final Sputum Sputum Culture - Final Streptococcus pneumoniae 03/16/18 02:43 Blood Culture - Preliminary Blood No Growth after 72 hours Assessment and Plan Plan: Assessment 1 acute hypoxic respiratory failure, likely on the basis of COPD exacerbation/ left lower lobe pneumonia. In addition the patient was an acute congestion heart failure. The patient is recovered and the patient was extubated without any major difficulties. He is however still bronchus spastic and wheezy and the chest extensive showing a component of pulmonary vessel congestion. 2 acute hypercapnic respiratory failure/acute respiratory respiratory acidosis, improving oxygenation and the patient was extubated yesterday and the patient is currently on high flow oxygen 8 L/m nasal cannula 3 acute lactic acidosis, recovered 4 congestion heart failure with an ejection fraction of 20% to 25% 5 hypotension, recovered with fluid resuscitation and pressors. The hypotension recovered and the patient's blood pressure is normalized for now 6 coronary artery disease with previous coronary intervention and stenting, please refer to the catheterization from 2017 7 previous history of nonsustained V. tach 8 previous history of DVT 9 peripheral vascular disease with a previous fem-fem bypass surgery 10 acute leukocytosis, white cell count is still elevated at 14.3 11 hyperlipidemia 12 previous history of hypertension 13 restless leg syndrome 14 sciatica 15 smoker and this includes tobacco and marijuana Plan Switch Levaquin to oral 750 mg by mouth daily. Discontinue the Zosyn. Continued IV diuresis. Continue bronchodilators. Continue systemic steroids. Advance diet as tolerated. Watch for any signs of delirium tremens. We'll continue to follow. Cardiology has seen the patient the patient was started on Entresto 24/26 mg 1 tablet twice a day. The patient is also on metoprolol 50 mg by mouth twice a day. No pressors for now.
--- NOTE | 2018-03-19 15:35 | PN ---
PROGRESS NOTE DATE OF SERVICE: 03/19/18. PRESENTING COMPLAINT: Short of breath. INTERVAL HISTORY: Patient is in the ICU, was intubated for acute respiratory failure from chronic obstructive pulmonary disease and pneumonia. The patient is extubated yesterday. This morning, blood pressure is again a bit high. The patient did get some Lasix. Sitting up in a bed tired. REVIEW OF SYSTEMS: Done for constitutional, cardiovascular, GI, pulmonary; relevant findings as above. CURRENT MEDICATIONS: Reviewed include DuoNeb, Norvasc, Plavix, IV Lasix, IV Solu-Medrol, nicotine patch. PHYSICAL EXAMINATION: Temperature 98.2, pulse 22, pulse 87, respiration 22, blood pressure 113/62, pulse ox 97% on 8 L. GENERAL APPEARANCE: Sitting up on bed, tired-appearing, awake. EYES: Pupils equal. Conjunctivae normal. HEENT: External appearance of nose and ears normal. Oral cavity normal. NECK: JVD unable to assess. Mass not palpable. RESPIRATORY: Effort increased, lungs decreased breath sounds. Prolonged expiration. CARDIOVASCULAR: First and second sounds, no edema. ABDOMEN: Soft, nontender. Liver and spleen not palpable. PSYCHIATRY: Alert, oriented x3. Mood and affect anxious-appearing. INVESTIGATIONS: White count 14.3, hemoglobin 13.8, potassium 4, BUN 33, creatinine 0.80. ASSESSMENT: 1. Acute chronic obstructive pulmonary disease exacerbation. 2. Left lower lobe pneumonia suspect gram-negative organism. 3. Acute hypercapnic respiratory failure, status post being on the ventilator support. 4. Acute respiratory acidosis. 5. Acute lactic acidosis on admission improved. 6. Acute on chronic congestive heart failure exacerbation from systolic dysfunction, ejection fraction 20 to 25% from underlying coronary artery disease. 7. Peripheral artery disease with prior history of fem-fem bypass. 8. Hyperlipidemia. 9. Essential hypertension. 10.Restless legs syndrome. 11.Chronic rotator cuff surgery. 12.Gastroesophageal reflux disease. PLAN: Continue current medication and treatment plan. Prognosis guarded. Per Dr. Razo Lopressor was increased to 50 mg twice a day and he is discontinuing the Zestoretic and starting the patient on Entresto starting tomorrow. MMODL / IJN: [id number] /
[2018-03-19 17:19] LABS: Glucose,Whole Blood 91 mg/dL (75-99)
[2018-03-19] MEDS: METOPROLOL TARTRATE 50 MG TAB PO SCH (18:59)
[2018-03-19] MEDS ORDERED: LORazepam 0.5 MG TAB PO STA (19:38)
[2018-03-19] MEDS ORDERED: LORazepam 2 MG/ML INJ IV PRN ×3 (19:49)
[2018-03-19] MEDS ORDERED: LORazepam 2 MG/ML INJ IV STA (19:53)
[2018-03-19] MEDS: ATORVASTATIN 80 MG TAB PO SCH (20:01)
[2018-03-19 21:19] LABS: Glucose,Whole Blood 118 mg/dL (75-99)
[2018-03-20] MEDS: IPRATROPIUM-ALBUTEROL 3 ML NEB INHALATION SCH ×7 (00:07→23:25)
[2018-03-20] MEDS: methylPREDNISolone SOD SUCCI 40 MG/ML 1 ML VIAL IV SCH ×4 (00:55→23:25)
[2018-03-20 04:55] LABS: Basophils % (A) 0 %; Eosinophils # (A) 0.1 k/uL (0-0.7); Eosinophils % (A) 1 %; HCT 47.2 % (39.0-53.0); HGB 14.9 gm/dL (13.0-17.5); Lymphocytes % (A) 8 %; MCHC 31.6 g/dL (31.0-37.0); MCV 98.2 fL (80.0-100.0); Mean Platelet Volume 8.4; Monocytes # (A) 0.5 k/uL (0-1.0); Monocytes % (A) 4 %; Neutrophils # (A) 10.8 k/uL (1.3-7.7); Neutrophils % (A) 87 %; Platelet Count 173 k/uL (150-450); WBC 12.5 k/uL (3.8-10.6)
[2018-03-20 05:10] LABS: Anion Gap 12 mmol/L; Blood Urea Nitrogen 38 mg/dL (9-20); Calcium 9.3 mg/dL (8.4-10.2); Carbon Dioxide 37 mmol/L (22-30); Chloride 95 mmol/L (98-107); Glucose 132 mg/dL (74-99); Magnesium 2.3 mg/dL (1.6-2.3); Phosphorus 4.2 mg/dL (2.5-4.5); Potassium 4.1 mmol/L (3.5-5.1); Sodium 144 mmol/L (137-145)
[2018-03-20 07:02] LABS: Glucose,Whole Blood 126 mg/dL (75-99)
--- NOTE | 2018-03-20 07:25 | XR ---
EXAMINATION TYPE: XR chest 1V portable DATE OF EXAM: 03/20/2018 HISTORY: Shortness of breath. COMPARISON: 03/19/2018 TECHNIQUE: Single view of the chest is submitted. FINDINGS: Demonstrated are scattered senescent parenchymal change. There is no evidence for focal infiltrate. The heart is stable. Pulmonary venous congestion without overt failure. Hilar and mediastinal structures are within normal limits. Degenerative changes are seen of the dorsal spine. IMPRESSION: 1. Chronic changes without evidence for acute pulmonary disease.
[2018-03-20] MEDS: INSULIN ASPART 100 UNIT/ML 1 ML 10 ML VIAL SQ SCH ×4 (07:44→21:25)
[2018-03-20] MEDS: PANTOPRAZOLE 40 MG TABLET PO SCH (07:45)
[2018-03-20] MEDS ORDERED: amLODIPine 5 MG TAB PO SCH (09:00)
[2018-03-20] MEDS: FUROSEMIDE 10 MG/ML 4 ML VIAL IV SCH ×2 (09:11→21:16)
[2018-03-20] MEDS: CLOPIDOGREL 75 MG TAB PO SCH (09:11)
[2018-03-20] MEDS: NICOTINE 21MG/24HR PATCH TRANSDERM SCH (09:11)
[2018-03-20] MEDS: ASPIRIN 81 MG PO SCH (09:11)
[2018-03-20] MEDS: ENOXAPARIN 40 MG/0.4 ML SYRINGE SQ SCH (09:11)
[2018-03-20] MEDS: METOPROLOL TARTRATE 50 MG TAB PO SCH ×2 (09:12→21:16)
[2018-03-20] MEDS: LEVOFLOXACIN 750 MG TAB PO SCH (09:12)
[2018-03-20 11:56] LABS: Glucose,Whole Blood 140 mg/dL (75-99)
--- NOTE | 2018-03-20 15:10 | P.PN ---
Subjective Progress Note Date: 03/20/18 Is a 67-year-old male patient with known history of advanced COPD, previous history of coronary artery disease and coronary stenting, congestion heart failure with an ejection fraction of 20-25%, previous history of sustained ventricular tachycardia along with history of smoking, hypertension and hyperlipidemia. The patient's last evaluation in the hospital was in February 2017 and at that time the patient underwent successful stenting of the ostial proximal up to is marginal branch, OM1, in addition to successful stenting of the proximal right coronary artery. The patient came into the emergency department this morning with acute respiratory distress. He was brought in via EMS. He was very hypoxic at home and his pulse ox was 70%. He was placed on CPAP on the Route and in the emergency department the patient had a blood gas that showed severe a stress and he was placed on BiPAP to which she failed and subsequently he was intubated and placed on mechanical ventilator. Post intubation blood gases showed a pH of 7.06 with a pCO2 of 85 and pO2 of 400. Based on this, the patient was placed on assist control mode at the rate of 24, tidal volume was 500 with an FiO2 dropped down to 50% and a rate of 24 and a PEEP of 5. Post this, blood gases were done and showed a pH of 7.25 with a pCO2 of 57 and pO2 133. Currently the patient is hypotensive and the blood pressure in the mid 80s. He was given a total of 2 L of lactated Ringer. He is on no pressors for the time being. His white cell count was at 15.6. He had a lactic acid level of 6.0. The proBNP level was 4000. First set of troponin was 0.016. Rest of the blood work and electrolytes are within normal limits and the blood sugar was at 260. D-dimer was at 2.55. CT angios the chest was done in the emergency department and the CAT scan showed diffuse centrilobular emphysema paraseptal emphysema. There is evidence of bibasilar subsegmental atelectasis. Patchy left basilar infiltrate. No pleural effusion. No evidence of any pulmonary edema. No evidence of any pulmonary embolism. ET tube was in good location. Currently the patient is sedated and is confident comfortable. He is synchronous with the mechanical ventilator. He is currently on 30 mics of propofol and the patient is also receiving normal saline today to follow 25 mL an hour. Urine output is in order of 10-15 mL an hour. On today's evaluation of 03/17/2018, the patient is being seen for a follow-up. The patient was in acute respiratory failure secondary to COPD and CHF exacerbation. On today's evaluation remains sedated and is calm and comfortable. He is easily arousable once off sedation. The patient remains on a mechanical ventilator on assist control mode at the rate of 24, FiO2 is down to 40% with a 5 of PEEP and a tidal volume of 500 with a rate of 24. The chest x-ray from today shows a component of pulmonary vessel congestion/edema. Noted the patient has underlying cardiomyopathy with an ejection fraction of 20-25%. ET tube is in a good location and the patient has a left subclavian triple lumen catheter with position being in a mid SVC an 80 to be also in good location. No significant airspace disease or infiltrates. The patient remains on a combination of Zosyn and Levaquin. The patient is receiving DuoNeb neb last treatment [id number] and the patient is also on IV Solu Medrol 60 mg every 6 hours. Peak airway pressures around 2324. The patient is not showing any significant bronchospasm and wheezing on today's evaluation. He is receiving IV fluids. He is hemodynamically stable. He is not requiring any pressors. Echocardiogram results were noted. No evidence of any bleeding from his stomachtube is in place. On 03/18/2018 the patient is being seen for a follow-up. This morning, the patient is still on Diprivan. He was an assist-control mode with essentially the same vent setting with an FiO2 brought up to 50% based on the pO2 that was barely below 60. Nevertheless, the patient had no significant elevation of the peak and static pressures. Some looseness for secretions were seen and orotracheal tube and these were being suctioned out by respiratory therapy. No fever. No chills. Chest x-ray shows some mild pulmonary vascular congestion. The patient is still on Lasix 40 g I push every 12 hours and the patient is a negative fluid balance. The patient is also being covered with a combination of Zosyn and Levaquin for bilateral lower lobe pneumonia. The patient is hemodynamically stable. The patient is on bronchodilators and the patient is on IV Solu-Medrol in addition. Noted the patient has impaired heart function based on the echo and ejection fraction is around 20%. The patient has no significant arrhythmias. Cardiac rhythm is sinus. Afebrile. He is still nothing by mouth for now. Based on all this, I took the patient off propofol and the patient was found to have adequate weaning parameters with a rapid shallow breathing index of 70. Subsequently the patient was given a spontaneous breathing trial with a pressure support of 5 and a PEEP of 5. The blood gases at that point showed a pH of 7.42 with a pCO2 of 54 and pO2 of 74 and this was done and FiO2 of 50%. At that point, the patient was extubated and the patient is currently on high flow oxygen at 10 L/m nasal cannula. Sputum analysis collected earlier showed strep pneumo. On 03/19/2019 the patient is being seen for a follow-up. The patient was extubated successfully yesterday without any major difficulties. Overnight he was doing well and earlier this morning the patient became diaphoretic and more short of breath and bronchospastic and wheezy. His chest x-ray shows pulmonary vessel congestion. No consolidation or airspace disease. The sputum culture has shown Streptococcus pneumonia and the patient is still and accommodation of Zosyn and Levaquin. The patient on IV Lasix 40 minutes every 12 hours and is in a negative fluid balance. Still on bronchodilators. He'll IV Solu-Medrol. Ejection fraction is around 20%. No signs of delirium tremens and the patient is tolerating diet this morning. He does have a mild cough with congestion his chest. No fever. No chills. No altered mentation. No agitation. The patient has no other complaints otherwise for now. On 03/20/2018, I'm seeing this patient for a follow-up. He has no specific complaints. Earlier last night the patient became somewhat agitated and he developed increased shortness of breath and hypertension. He was getting slightly confused also. He was given Ativan and throughout the night he received a total of 2.5 mg of Ativan. This morning his wide awake and alert and following commands and answering questions and sitting up on a chair without any major difficulties. He remains on IV Lasix 40 mg every 12 hours. He is in a negative fluid balance. Chest x-ray shows improvement in the volume status. He is on oral Levaquin regarding the pneumococcal pneumonia. He is also on IV Solu-Medrol 40 g every 8 hours. Is producing adequate amount of urine output. Meneses catheter in place. He also has a left subclavian triple- lumen catheter in and Artline. No nausea. No vomiting. He was started on a combination of metoprolol 50 mg twice and entresto in regards to his heart failure. Objective - Vital Signs Vital signs: Vital Signs Temp 97.4 F L 03/20/18 12:00 Pulse 77 03/20/18 14:00 Resp 19 03/20/18 14:00 BP 118/74 03/20/18 14:00 Pulse Ox 95 03/20/18 14:00 Intake & Output 03/19/18 03/20/18 03/20/18 18:59 06:59 18:59 Intake Total 750 312 725 Output Total 1330 1775 1860 Balance -580 -1463 -1135 Weight 80.3 kg 77.6 kg Intake: IV 312 150 0.9 at KVO 240 120 Pressure bags of Nomal 72 30 Saline for CVP & Daily Oral 750 575 Output: Urine 1330 1775 1860 Other: Voiding Method Indwelling Catheter Indwelling Catheter Indwelling Catheter ABP, PAP, CO, CI - Last Documented Arterial Blood Pressure 147/66 Pulmonary Artery Pressure 0/0 - Exam Patient is laying down comfortably in bed. No signs of any acute respiratory distress. Head exam was generally normal. There was no scleral icterus or corneal arcus. Mucous membranes were moist. Examination neck shows positive JVDs and there is no goiter or neck masses. No lymphadenopathy. No thrush. Lungs sounds are diminished bilaterally along with some scattered rhonchi and scattered expiratory wheezes without the lung kinney. Cardiac exam revealed the PMI to be normally situated and sized. The rhythm was regular and no extrasystoles were noted during several minutes of auscultation. The first and second heart sounds were normal and physiologic splitting of the second heart sound was noted. There were no murmurs, rubs, clicks, or gallops. Abdominal exam revealed normal bowel sounds. The abdomen was soft, non-tender, and without masses, organomegaly, or appreciable enlargement of the abdominal aorta. Examination of the extremities revealed easily palpable radial, femoral and pedal pulses. There was no cyanosis, clubbing or edema. Examination of the skin revealed no evidence of significant rashes, suspicious appearing nevi or other concerning lesions. Neurologically the patient is awake and alert and following commands - Labs CBC & Chem 7: 03/20/18 04:45 03/20/18 04:45 Labs: Abnormal Lab Results - Last 24 Hours (Table) 03/19/18 03/20/18 03/20/18 Range/Units 21:17 04:45 04:45 WBC 12.5 H (3.8-10.6) k/uL Neutrophils # 10.8 H (1.3-7.7) k/uL Chloride 95 L (98-107) mmol/L Carbon Dioxide 37 H (22-30) mmol/L BUN 38 H (9-20) mg/dL Glucose 132 H (74-99) mg/dL POC Glucose (mg/dL) 118 H (75-99) mg/dL 03/20/18 03/20/18 Range/Units 06:59 11:53 WBC (3.8-10.6) k/uL Neutrophils # (1.3-7.7) k/uL Chloride (98-107) mmol/L Carbon Dioxide (22-30) mmol/L BUN (9-20) mg/dL Glucose (74-99) mg/dL POC Glucose (mg/dL) 126 H 140 H (75-99) mg/dL Microbiology - Last 24 Hours (Table) 03/16/18 02:43 Blood Culture - Preliminary Blood No Growth after 96 hours 03/16/18 03:30 Gram Stain - Final Sputum Sputum Culture - Final Streptococcus pneumoniae Assessment and Plan Plan: Assessment 1 acute hypoxic respiratory failure, likely on the basis of COPD exacerbation/ left lower lobe pneumonia. Patient is extubated on 5 L of oxygen nasal cannula. The patient continues to be diuresis with IV Lasix. The patient on Levaquin for pneumococcal pneumonia. 2 acute hypercapnic respiratory failure/acute respiratory respiratory acidosis, improving and the patient is currently is down to 5 L of oxygen by nasal cannula. Chest x-ray shows improvement in the volume status. 3 acute lactic acidosis, recovered 4 congestion heart failure with an ejection fraction of 20% to 25% 5 hypotension, recovered with fluid resuscitation and pressors. The hypotension recovered and the patient's blood pressure is normalized for now 6 coronary artery disease with previous coronary intervention and stenting, please refer to the catheterization from 2017 7 previous history of nonsustained V. tach 8 previous history of DVT 9 peripheral vascular disease with a previous fem-fem bypass surgery 10 acute leukocytosis, recovered 11 hyperlipidemia 12 previous history of hypertension 13 restless leg syndrome 14 sciatica 15 smoker and this includes tobacco and marijuana Plan Taper the IV Solu-Medrol. Continue Levaquin. Continue IV diuretics. He was a Meneses catheter. Remove the arterial line. Advance diet. Monitor mentation. We'll continue to follow. May chest without at the later stage was more stable.
[2018-03-20 17:30] LABS: Glucose,Whole Blood 87 mg/dL (75-99)
[2018-03-20] MEDS: SACUBITRIL/VALSARTAN 24 MG-26 MG TABLET PO SCH (21:14)
[2018-03-20] MEDS: ATORVASTATIN 80 MG TAB PO SCH (21:16)
[2018-03-20 21:21] LABS: Glucose,Whole Blood 169 mg/dL (75-99)
--- NOTE | 2018-03-20 22:18 | PN ---
PROGRESS NOTE DATE OF SERVICE: March 20, 2018. PRESENT COMPLAINT: Short of breath. INTERVAL HISTORY: The patient is in the ICU status post intubation for acute respiratory failure from COPD, pneumonia. Also being treated for CHF. Last night the patient became delirious and agitated and did receive Ativan this morning. The patient doing much better. Did tolerate a diet. Meneses catheter remains in place. Making urine. Actually joking about events. Telemetry shows sinus rhythm. REVIEW OF SYSTEMS: Done for constitutional, cardiovascular, GI, pulmonary; relevant findings as above. CURRENT MEDICATIONS: Reviewed that include DuoNeb, aspirin, Lipitor, IV Lasix 40 q.12 hours, p.o. Levaquin, IV Solu-Medrol 40 q.8h, Entresto. EXAMINATION: Temperature 97.7, pulse 92, respiration 23, blood pressure 140/89, pulse ox 99% on 4 L. GENERAL APPEARANCE: Sitting up, awake, though tired. Eyes: Pupils equal. Conjunctivae normal. HEENT: External appearance of nose and ears normal. Oral cavity normal. Neck: JVD unable to assess. Mass not palpable. Respiratory effort increased. Lungs decreased breath sounds. Mild wheezing. Cardiovascular: 1st and 2nd sounds normal. No edema. ABDOMEN: Soft, nontender. Liver and spleen not palpable. Psychiatry: Alert and oriented times three. Mood and affect slightly anxious-appearing. INVESTIGATIONS: White count 12.5, hemoglobin 14.9, potassium 4.1, BUN 38, creatinine 0.90, Accu-Cheks are noted. Chest x-ray reporting some chronic changes. ASSESSMENT: 1. Acute chronic obstructive pulmonary disease exacerbation. 2. Left lower lobe pneumonia suspect gram-negative organism. 3. Acute hypercapnic and hypoxic respiratory failure, status post being on the ventilator. 4. Acute respiratory acidosis with acute lactic acidosis. 5. Acute on chronic congestive heart failure exacerbation from systolic dysfunction EF 20 to 25% underlying coronary artery disease. 6. Peripheral artery disease with prior history of fem-fem bypass. 7. Hyperlipidemia. 8. Essential hypertension. 9. Restless legs syndrome. 10.Chronic rotator cuff injury. 11.Gastroesophageal reflux disease. 12.Acute delirium multifactorial, improved. PLAN: Continue current medication and treatment plan. Care was discussed with the patient. Continue with bronchodilators, oral antibiotics. IV steroids. Remains on IV Lasix. MMODL / IJN: [id number] /
[2018-03-21] MEDS: IPRATROPIUM-ALBUTEROL 3 ML NEB INHALATION SCH ×5 (02:43→20:32)
[2018-03-21 03:32] VITALS: RESP 18
[2018-03-21 05:54] LABS: Glucose,Whole Blood 137 mg/dL (75-99)
[2018-03-21] MEDS: INSULIN ASPART 100 UNIT/ML 1 ML 10 ML VIAL SQ SCH ×4 (06:13→21:10)
[2018-03-21] MEDS: PANTOPRAZOLE 40 MG TABLET PO SCH (06:13)
[2018-03-21 06:37] LABS: Anion Gap 14 mmol/L; Blood Urea Nitrogen 35 mg/dL (9-20); Calcium 9.5 mg/dL (8.4-10.2); Carbon Dioxide 33 mmol/L (22-30); Chloride 93 mmol/L (98-107); Glucose 133 mg/dL (74-99); Magnesium 2.3 mg/dL (1.6-2.3); Phosphorus 4.1 mg/dL (2.5-4.5); Potassium 4.2 mmol/L (3.5-5.1); Sodium 140 mmol/L (137-145)
[2018-03-21 06:38] LABS: Basophils % (A) 0 %; Eosinophils % (A) 0 %; HCT 47.9 % (39.0-53.0); HGB 16.1 gm/dL (13.0-17.5); Lymphocytes # (A) 1.1 k/uL (1.0-4.8); Lymphocytes % (A) 9 %; MCH 32.1 pg (25.0-35.0); MCHC 33.7 g/dL (31.0-37.0); MCV 95.2 fL (80.0-100.0); Mean Platelet Volume 7.8; Monocytes # (A) 0.6 k/uL (0-1.0); Monocytes % (A) 5 %; Neutrophils # (A) 10.3 k/uL (1.3-7.7); Neutrophils % (A) 85 %; Platelet Count 189 k/uL (150-450); RBC 5.03 m/uL (4.30-5.90); RDW 12.8 % (11.5-15.5); WBC 12.1 k/uL (3.8-10.6)
[2018-03-21] MEDS: methylPREDNISolone SOD SUCCI 40 MG/ML 1 ML VIAL IV SCH ×3 (08:30→23:49)
[2018-03-21] MEDS: NICOTINE 21MG/24HR PATCH TRANSDERM SCH (08:31)
[2018-03-21] MEDS: LEVOFLOXACIN 750 MG TAB PO SCH (08:31)
[2018-03-21] MEDS: ENOXAPARIN 40 MG/0.4 ML SYRINGE SQ SCH (08:31)
[2018-03-21] MEDS: METOPROLOL TARTRATE 50 MG TAB PO SCH ×2 (08:31→19:50)
[2018-03-21] MEDS: FUROSEMIDE 10 MG/ML 4 ML VIAL IV SCH ×2 (08:31→19:50)
[2018-03-21] MEDS: ASPIRIN 81 MG PO SCH (08:31)
[2018-03-21] MEDS: CLOPIDOGREL 75 MG TAB PO SCH (08:31)
[2018-03-21] MEDS: SACUBITRIL/VALSARTAN 24 MG-26 MG TABLET PO SCH ×2 (08:32→19:50)
[2018-03-21 12:00] LABS: Glucose,Whole Blood 140 mg/dL (75-99)
--- NOTE | 2018-03-21 13:17 | P.PN ---
Subjective Progress Note Date: 03/21/18 This is a 67-year-old gentleman with history of advanced COPD, coronary artery disease with prior PCI, ejection fraction of 20-25% with prior systolic congestive heart failure. Previous history of sustained ventricular tachycardia , history of nicotine dependence, hypertension hyperlipidemia. Most recent stenting was performed in February 2017 at which time patient underwent stenting of the ostial portion of the OM1 in addition to stenting of the right coronary artery. Patient was brought to the hospital in acute respiratory distress, and has been being followed in the intensive care unit. He was seen and examined on the telemetry unit today, was initiated on Entresto. Patient continues to have excellent urine output, his weight is down 2 kg today. Sodium 140, potassium 4.2, BUN 35, creatinine 0.7. White blood cell count is 12.1 with a hemoglobin of 16.1. Objective - Vital Signs Vital signs: Vital Signs Temp 97.5 F L 03/21/18 12:00 Pulse 69 03/21/18 12:00 Resp 18 03/21/18 12:00 BP 121/65 03/21/18 12:00 Pulse Ox 95 03/21/18 12:00 Intake & Output 03/20/18 03/21/18 03/21/18 18:59 06:59 18:59 Intake Total 1015 170 Output Total 2070 1575 Balance -1055 -1405 Weight 75 kg Intake: IV 190 50 0.9 at KVO 160 50 Pressure bags of Nomal 30 Saline for CVP & Daily Oral 825 120 Output: Urine 2070 1575 Other: Voiding Method Indwelling Catheter Urinal # Voids 0 ABP, PAP, CO, CI - Last Documented Arterial Blood Pressure 147/66 Pulmonary Artery Pressure 0/0 - Exam PHYSICAL EXAMINATION: HEENT: Head is atraumatic, normocephalic. Pupils equal, round. Neck is supple. There is no elevated jugular venous pressure. HEART EXAMINATION: Heart S1, S2 normal. No murmur or gallop heard. CHEST EXAMINATION: Lungs reveal diminished air entry bilaterally with scattered coarse rhonchi and wheezing throughout. ABDOMEN: Soft, nontender. Bowel sounds are heard. No organomegaly noted. EXTREMITIES: 2+ peripheral pulses with no evidence of peripheral edema and no calf tenderness noted. NEUROLOGIC patient is awake, alert and oriented -3. . - Labs CBC & Chem 7: 03/21/18 05:42 03/21/18 05:42 Labs: Abnormal Lab Results - Last 24 Hours (Table) 03/20/18 03/21/18 03/21/18 Range/Units 21:19 05:42 05:42 WBC 12.1 H (3.8-10.6) k/uL Neutrophils # 10.3 H (1.3-7.7) k/uL Chloride 93 L (98-107) mmol/L Carbon Dioxide 33 H (22-30) mmol/L BUN 35 H (9-20) mg/dL Glucose 133 H (74-99) mg/dL POC Glucose (mg/dL) 169 H (75-99) mg/dL 03/21/18 03/21/18 Range/Units 05:53 11:58 WBC (3.8-10.6) k/uL Neutrophils # (1.3-7.7) k/uL Chloride (98-107) mmol/L Carbon Dioxide (22-30) mmol/L BUN (9-20) mg/dL Glucose (74-99) mg/dL POC Glucose (mg/dL) 137 H 140 H (75-99) mg/dL Microbiology - Last 24 Hours (Table) 03/16/18 02:43 Blood Culture - Preliminary Blood No Growth after 120 hours Assessment and Plan Plan: Assessment and plan #1 acute hypoxic respiratory failure likely secondary to COPD exacerbation and left lower lobe pneumonia. #2 systolic congestive heart failure acute on chronic #3 acute lactic acidosis, resolved #4 coronary artery disease with prior stent placement #5 history of nonsustained VT #6 prior history of DVT #7 peripheral vascular disease with prior fem-fem bypass surgery #8 hypertension #9 hyperlipidemia #10 nicotine dependence and marijuana use #11's ischemic cardiomyopathy Plan Patient will be continued on current dose of IV Lasix, we will also continue the intestinal monitoring the blood pressure closely. Check daily lytes BUN and creatinine as well as intake and output. DNP note has been reviewed, I agree with a documented findings and plan of care. Patient was seen and examined.
--- NOTE | 2018-03-21 13:23 | P.PN ---
Subjective Progress Note Date: 03/21/18 Is a 67-year-old male patient with known history of advanced COPD, previous history of coronary artery disease and coronary stenting, congestion heart failure with an ejection fraction of 20-25%, previous history of sustained ventricular tachycardia along with history of smoking, hypertension and hyperlipidemia. The patient's last evaluation in the hospital was in February 2017 and at that time the patient underwent successful stenting of the ostial proximal up to is marginal branch, OM1, in addition to successful stenting of the proximal right coronary artery. The patient came into the emergency department this morning with acute respiratory distress. He was brought in via EMS. He was very hypoxic at home and his pulse ox was 70%. He was placed on CPAP on the Route and in the emergency department the patient had a blood gas that showed severe a stress and he was placed on BiPAP to which she failed and subsequently he was intubated and placed on mechanical ventilator. Post intubation blood gases showed a pH of 7.06 with a pCO2 of 85 and pO2 of 400. Based on this, the patient was placed on assist control mode at the rate of 24, tidal volume was 500 with an FiO2 dropped down to 50% and a rate of 24 and a PEEP of 5. Post this, blood gases were done and showed a pH of 7.25 with a pCO2 of 57 and pO2 133. Currently the patient is hypotensive and the blood pressure in the mid 80s. He was given a total of 2 L of lactated Ringer. He is on no pressors for the time being. His white cell count was at 15.6. He had a lactic acid level of 6.0. The proBNP level was 4000. First set of troponin was 0.016. Rest of the blood work and electrolytes are within normal limits and the blood sugar was at 260. D-dimer was at 2.55. CT angios the chest was done in the emergency department and the CAT scan showed diffuse centrilobular emphysema paraseptal emphysema. There is evidence of bibasilar subsegmental atelectasis. Patchy left basilar infiltrate. No pleural effusion. No evidence of any pulmonary edema. No evidence of any pulmonary embolism. ET tube was in good location. Currently the patient is sedated and is confident comfortable. He is synchronous with the mechanical ventilator. He is currently on 30 mics of propofol and the patient is also receiving normal saline today to follow 25 mL an hour. Urine output is in order of 10-15 mL an hour. On today's evaluation of 03/17/2018, the patient is being seen for a follow-up. The patient was in acute respiratory failure secondary to COPD and CHF exacerbation. On today's evaluation remains sedated and is calm and comfortable. He is easily arousable once off sedation. The patient remains on a mechanical ventilator on assist control mode at the rate of 24, FiO2 is down to 40% with a 5 of PEEP and a tidal volume of 500 with a rate of 24. The chest x-ray from today shows a component of pulmonary vessel congestion/edema. Noted the patient has underlying cardiomyopathy with an ejection fraction of 20-25%. ET tube is in a good location and the patient has a left subclavian triple lumen catheter with position being in a mid SVC an 80 to be also in good location. No significant airspace disease or infiltrates. The patient remains on a combination of Zosyn and Levaquin. The patient is receiving DuoNeb neb last treatment [id number] and the patient is also on IV Solu Medrol 60 mg every 6 hours. Peak airway pressures around 2324. The patient is not showing any significant bronchospasm and wheezing on today's evaluation. He is receiving IV fluids. He is hemodynamically stable. He is not requiring any pressors. Echocardiogram results were noted. No evidence of any bleeding from his stomachtube is in place. On 03/18/2018 the patient is being seen for a follow-up. This morning, the patient is still on Diprivan. He was an assist-control mode with essentially the same vent setting with an FiO2 brought up to 50% based on the pO2 that was barely below 60. Nevertheless, the patient had no significant elevation of the peak and static pressures. Some looseness for secretions were seen and orotracheal tube and these were being suctioned out by respiratory therapy. No fever. No chills. Chest x-ray shows some mild pulmonary vascular congestion. The patient is still on Lasix 40 g I push every 12 hours and the patient is a negative fluid balance. The patient is also being covered with a combination of Zosyn and Levaquin for bilateral lower lobe pneumonia. The patient is hemodynamically stable. The patient is on bronchodilators and the patient is on IV Solu-Medrol in addition. Noted the patient has impaired heart function based on the echo and ejection fraction is around 20%. The patient has no significant arrhythmias. Cardiac rhythm is sinus. Afebrile. He is still nothing by mouth for now. Based on all this, I took the patient off propofol and the patient was found to have adequate weaning parameters with a rapid shallow breathing index of 70. Subsequently the patient was given a spontaneous breathing trial with a pressure support of 5 and a PEEP of 5. The blood gases at that point showed a pH of 7.42 with a pCO2 of 54 and pO2 of 74 and this was done and FiO2 of 50%. At that point, the patient was extubated and the patient is currently on high flow oxygen at 10 L/m nasal cannula. Sputum analysis collected earlier showed strep pneumo. On 03/19/2019 the patient is being seen for a follow-up. The patient was extubated successfully yesterday without any major difficulties. Overnight he was doing well and earlier this morning the patient became diaphoretic and more short of breath and bronchospastic and wheezy. His chest x-ray shows pulmonary vessel congestion. No consolidation or airspace disease. The sputum culture has shown Streptococcus pneumonia and the patient is still and accommodation of Zosyn and Levaquin. The patient on IV Lasix 40 minutes every 12 hours and is in a negative fluid balance. Still on bronchodilators. He'll IV Solu-Medrol. Ejection fraction is around 20%. No signs of delirium tremens and the patient is tolerating diet this morning. He does have a mild cough with congestion his chest. No fever. No chills. No altered mentation. No agitation. The patient has no other complaints otherwise for now. On 03/20/2018, I'm seeing this patient for a follow-up. He has no specific complaints. Earlier last night the patient became somewhat agitated and he developed increased shortness of breath and hypertension. He was getting slightly confused also. He was given Ativan and throughout the night he received a total of 2.5 mg of Ativan. This morning his wide awake and alert and following commands and answering questions and sitting up on a chair without any major difficulties. He remains on IV Lasix 40 mg every 12 hours. He is in a negative fluid balance. Chest x-ray shows improvement in the volume status. He is on oral Levaquin regarding the pneumococcal pneumonia. He is also on IV Solu-Medrol 40 g every 8 hours. Is producing adequate amount of urine output. Meneses catheter in place. He also has a left subclavian triple- lumen catheter in and Artline. No nausea. No vomiting. He was started on a combination of metoprolol 50 mg twice and entresto in regards to his heart failure. On 03/21/2019 I'm seeing this patient for a follow-up. The patient is doing in much better. The patient does not have any complaints. He got moved out of the intensive care unit yesterday. He is post respiratory failure requiring intubation mechanical ventilation secondary to COPD exacerbation, CHF and pneumonia. Remains on IV Solu Medrol. Remains on IV Lasix. He is in a negative fluid balance. He is currently down to 40s about 2 by nasal cannula. No cough. No sputum production. Strength is improving. The patient is emanating. Tolerating his diet. Objective - Vital Signs Vital signs: Vital Signs Temp 97.5 F L 03/21/18 12:00 Pulse 69 03/21/18 12:00 Resp 18 03/21/18 12:00 BP 121/65 03/21/18 12:00 Pulse Ox 95 03/21/18 12:00 Intake & Output 03/20/18 03/21/18 03/21/18 18:59 06:59 18:59 Intake Total 1015 170 Output Total 2070 1575 Balance -1055 -1405 Weight 75 kg Intake: IV 190 50 0.9 at KVO 160 50 Pressure bags of Nomal 30 Saline for CVP & Daily Oral 825 120 Output: Urine 2069 1575 Other: Voiding Method Indwelling Catheter Urinal # Voids 0 ABP, PAP, CO, CI - Last Documented Arterial Blood Pressure 147/66 Pulmonary Artery Pressure 0/0 - Exam Patient is laying down comfortably in bed. No signs of any acute respiratory distress. Head exam was generally normal. There was no scleral icterus or corneal arcus. Mucous membranes were moist. Examination neck shows positive JVDs and there is no goiter or neck masses. No lymphadenopathy. No thrush. Lungs sounds are diminished bilaterally along with some scattered rhonchi and scattered expiratory wheezes without the lung kinney. Cardiac exam revealed the PMI to be normally situated and sized. The rhythm was regular and no extrasystoles were noted during several minutes of auscultation. The first and second heart sounds were normal and physiologic splitting of the second heart sound was noted. There were no murmurs, rubs, clicks, or gallops. Abdominal exam revealed normal bowel sounds. The abdomen was soft, non-tender, and without masses, organomegaly, or appreciable enlargement of the abdominal aorta. Examination of the extremities revealed easily palpable radial, femoral and pedal pulses. There was no cyanosis, clubbing or edema. Examination of the skin revealed no evidence of significant rashes, suspicious appearing nevi or other concerning lesions. Neurologically the patient is awake and alert and following commands - Labs CBC & Chem 7: 03/21/18 05:42 03/21/18 05:42 Labs: Abnormal Lab Results - Last 24 Hours (Table) 03/20/18 03/21/18 03/21/18 Range/Units 21:19 05:42 05:42 WBC 12.1 H (3.8-10.6) k/uL Neutrophils # 10.3 H (1.3-7.7) k/uL Chloride 93 L (98-107) mmol/L Carbon Dioxide 33 H (22-30) mmol/L BUN 35 H (9-20) mg/dL Glucose 133 H (74-99) mg/dL POC Glucose (mg/dL) 169 H (75-99) mg/dL 03/21/18 03/21/18 Range/Units 05:53 11:58 WBC (3.8-10.6) k/uL Neutrophils # (1.3-7.7) k/uL Chloride (98-107) mmol/L Carbon Dioxide (22-30) mmol/L BUN (9-20) mg/dL Glucose (74-99) mg/dL POC Glucose (mg/dL) 137 H 140 H (75-99) mg/dL Microbiology - Last 24 Hours (Table) 03/16/18 02:43 Blood Culture - Preliminary Blood No Growth after 120 hours Assessment and Plan Plan: Assessment 1 acute hypoxic respiratory failure, likely on the basis of COPD exacerbation/ left lower lobe pneumonia. Patient is improving and FiO2 has been done to 2 L of oxygen by nasal cannula and the pulse ox is maintaining around 95%. 2 acute hypercapnic respiratory failure/acute respiratory respiratory acidosis, improving and the patient is currently is down to 2 L of oxygen by nasal cannula patient got moved out of the intensive care unit. We'll continue the bronchodilators and Lasix for another 24 hours. 3 acute lactic acidosis, recovered 4 congestion heart failure with an ejection fraction of 20% to 25% 5 hypotension, recovered with fluid resuscitation and pressors. The hypotension recovered and the patient's blood pressure is normalized for now 6 coronary artery disease with previous coronary intervention and stenting, please refer to the catheterization from 2017 7 previous history of nonsustained V. tach 8 previous history of DVT 9 peripheral vascular disease with a previous fem-fem bypass surgery 10 acute leukocytosis, recovered 11 hyperlipidemia 12 previous history of hypertension 13 restless leg syndrome 14 sciatica 15 smoker and this includes tobacco and marijuana Plan Stop the IV Lasix and put the patient oral Lasix 40 minutes by mouth daily. Continue IV Solu Medrol for another 24 hours. Wean down the FiO2 as tolerated to maintain a saturation above 90%. Continue aspirin. Continue Plavix. Continue Levaquin as an antibiotic coverage regarding the pneumonia. Continue the rest of the cardiac medications. We'll switch this patient a prednisone burst taper tomorrow. Possible discharge within next 24-48 hours.
[2018-03-21 16:52] LABS: Glucose,Whole Blood 157 mg/dL (75-99)
[2018-03-21] MEDS: ATORVASTATIN 80 MG TAB PO SCH (19:50)
[2018-03-21 21:07] LABS: Glucose,Whole Blood 116 mg/dL (75-99)
--- NOTE | 2018-03-21 21:18 | PN ---
PROGRESS NOTE DATE OF SERVICE: 03/21/2018. PRESENTING COMPLAINT: Short of breath. INTERVAL HISTORY: This is a patient who was initially in the ICU, status post respiratory failure on the vent, being treated for COPD, pneumonia, CHF. Doing much better, tolerating a diet. Has been up to the bathroom, feeling well. REVIEW OF SYSTEMS: Done for constitutional, cardiovascular, GI, pulmonary; relevant findings as above. CURRENT MEDICATIONS: Reviewed that include: 1. DuoNeb. 2. Aspirin. 3. Lipitor. 4. Plavix. 5. IV Lasix. 6. P.o. Levaquin. 7. IV Solu-Medrol. 8. Entresto. EXAMINATION: Temperature 97.5, pulse 59, respirations 18, blood pressure 121/65, pulse ox 95% on 2L. GENERAL APPEARANCE: Sitting on bed, more comfortable. EYES: Pupils are equal. Conjunctivae normal. HEENT: External appearance of nose and ears normal. Oral cavity normal. NECK: JVD unable to assess. Mass not palpable. RESPIRATORY: Effort increased. LUNGS: Decreased breath sounds. CARDIOVASCULAR: First and second sounds normal. No edema. ABDOMEN: Soft, nontender. Liver and spleen not palpable. PSYCHIATRY: Alert and oriented x3. Mood and affect were normal. INVESTIGATIONS: White count 12.1. Potassium 4.2, BUN 35, creatinine 0.70. Accu-Cheks are noted. ASSESSMENT: 1. Acute chronic obstructive pulmonary disease exacerbation. 2. Left lower lobe pneumonia, suspect gram-negative organism. 3. Acute hypercapnic and hypoxic respiratory failure, status post being on the ventilator. 4. Acute respiratory acidosis with an acute lactic acidosis. 5. Acute on chronic congestive heart failure exacerbation from systolic dysfunction, ejection fraction 20%-25%. 6. Underlying coronary artery disease, clinically much improved. 7. Peripheral artery disease, prior history of femoral-femoral bypass. 8. Hyperlipidemia. 9. Essential hypertension. 10.Restless legs syndrome. 11.Chronic rotator cuff injury. 12.Gastroesophageal reflux disease. 13.Acute delirium, multifactorial, resolved. PLAN: Patient is overall doing much better. The patient should be able to be switched over to oral Lasix pending further input from Cardiology. Will check a pulse ox on room air. MMODL / IJN: [id number] /
[2018-03-22 05:51] LABS: Glucose,Whole Blood 135 mg/dL (75-99)
[2018-03-22 06:21] LABS: Anion Gap 11 mmol/L; Blood Urea Nitrogen 37 mg/dL (9-20); Calcium 9.6 mg/dL (8.4-10.2); Carbon Dioxide 36 mmol/L (22-30); Chloride 92 mmol/L (98-107); Glucose 135 mg/dL (74-99); Magnesium 2.3 mg/dL (1.6-2.3); Potassium 3.8 mmol/L (3.5-5.1); Sodium 139 mmol/L (137-145)
[2018-03-22] MEDS: INSULIN ASPART 100 UNIT/ML 1 ML 10 ML VIAL SQ SCH ×2 (06:30→12:11)
[2018-03-22] MEDS: PANTOPRAZOLE 40 MG TABLET PO SCH (06:30)
[2018-03-22] MEDS: CLOPIDOGREL 75 MG TAB PO SCH (07:16)
[2018-03-22] MEDS: methylPREDNISolone SOD SUCCI 40 MG/ML 1 ML VIAL IV SCH (07:16)
[2018-03-22] MEDS: ENOXAPARIN 40 MG/0.4 ML SYRINGE SQ SCH (07:16)
[2018-03-22] MEDS: SACUBITRIL/VALSARTAN 24 MG-26 MG TABLET PO SCH (07:16)
[2018-03-22] MEDS: LEVOFLOXACIN 750 MG TAB PO SCH (07:16)
[2018-03-22] MEDS: METOPROLOL TARTRATE 50 MG TAB PO SCH (07:16)
[2018-03-22] MEDS: ASPIRIN 81 MG PO SCH (07:16)
[2018-03-22] MEDS: FUROSEMIDE 10 MG/ML 4 ML VIAL IV SCH (07:16)
[2018-03-22] MEDS: NICOTINE 21MG/24HR PATCH TRANSDERM SCH (07:19)
[2018-03-22] MEDS: IPRATROPIUM-ALBUTEROL 3 ML NEB INHALATION SCH ×2 (09:33→12:02)
[2018-03-22] MEDS ORDERED: FUROSEMIDE 40 MG TAB PO SCH (10:30)
[2018-03-22 11:39] VITALS: BP 89/61; PULSE 66; TEMP 97.1
[2018-03-22 12:00] LABS: Glucose,Whole Blood 114 mg/dL (75-99)
--- NOTE | 2018-03-22 12:01 | P.PN ---
Subjective Progress Note Date: 03/22/18 This is a 67-year-old gentleman with history of advanced COPD and also ischemic heart disease and cardiomyopathy who was admitted to the hospital in acute respiratory failure. He was initially managed in intensive care unit. He was transferred to telemetry unit. Yesterday. Patient has been sleeping well since transfer here. Doesn't appear to be in acute distress. Patient seemed to be anxious to go home. He has history of previous nonsustained V. tach. No evidence of recurrence of V. tach here. He has previous stent placement at remained stable without any anginal pains. Patient is being discharged home. Follow-up in the cardiology office. Objective - Vital Signs Vital signs: Vital Signs Temp 97.1 F L 03/22/18 11:39 Pulse 66 03/22/18 11:39 Resp 18 03/22/18 11:39 BP 89/61 03/22/18 11:39 Pulse Ox 96 03/22/18 11:39 Intake & Output 03/21/18 03/22/18 03/22/18 18:59 06:59 18:59 Intake Total 360 900 Output Total 300 1425 Balance 60 -525 Weight 74.8 kg Intake: Oral 360 900 Output: Urine 300 1425 Other: Voiding Method Urinal # Voids 1 ABP, PAP, CO, CI - Last Documented Arterial Blood Pressure 147/66 Pulmonary Artery Pressure 0/0 - Exam GENERAL EXAM: Patient is alert and oriented and doesn't appear to be in any acute distress HEENT: Normocephalic. Normal reaction of pupils, equal size, normal range of extraocular motion. No erythema or exudates in the throat. NECK: No masses, no nuchal rigidity. CHEST: No chest wall deformity. LUNGS: Diminished air exchange HEART: Distant heart sounds ABDOMEN: No hepatosplenomegaly, normal bowel sounds, no guarding or rigidity. SKIN: No rashes CENTRAL NERVOUS SYSTEM: No focal deficits. EXTREMITIES: No cyanosis, clubbing or edema. - Labs CBC & Chem 7: 03/21/18 05:42 03/22/18 05:30 Labs: Abnormal Lab Results - Last 24 Hours (Table) 03/21/18 03/21/18 03/21/18 Range/Units 11:58 16:49 21:06 Chloride (98-107) mmol/L Carbon Dioxide (22-30) mmol/L BUN (9-20) mg/dL Glucose (74-99) mg/dL POC Glucose (mg/dL) 140 H 157 H 116 H (75-99) mg/dL 03/22/18 03/22/18 Range/Units 05:30 05:40 Chloride 92 L (98-107) mmol/L Carbon Dioxide 36 H (22-30) mmol/L BUN 37 H (9-20) mg/dL Glucose 135 H (74-99) mg/dL POC Glucose (mg/dL) 135 H (75-99) mg/dL Microbiology - Last 24 Hours (Table) 03/16/18 02:43 Blood Culture - Final Blood No Growth after 144 hours Assessment and Plan (1) CAD (coronary artery disease) Current Visit: Yes Status: Acute Code(s): I25.10 - ATHSCL HEART DISEASE OF [place] CORONARY ARTERY W/O ANG PCTRS SNOMED Code(s): 73613009 (2) Congestive heart failure Current Visit: Yes Status: Acute Code(s): I50.9 - HEART FAILURE, UNSPECIFIED SNOMED Code(s): 52160656 (3) Respiratory failure Current Visit: Yes Status: Acute Code(s): J96.90 - RESPIRATORY FAILURE, UNSP , UNSP W HYPOXIA OR HYPERCAPNIA SNOMED Code(s): 997693252 (4) Cardiomyopathy Current Visit: Yes Status: Acute Code(s): I42.9 - CARDIOMYOPATHY, UNSPECIFIED SNOMED Code(s): 14911810 Plan: Patient seemed to be clinically stable. He is anxious to go home. Continue current medical therapy. Follow up with the cardiology office
--- NOTE | 2018-03-22 12:26 | P.PN ---
Subjective Progress Note Date: 03/22/18 Is a 67-year-old male patient with known history of advanced COPD, previous history of coronary artery disease and coronary stenting, congestion heart failure with an ejection fraction of 20-25%, previous history of sustained ventricular tachycardia along with history of smoking, hypertension and hyperlipidemia. The patient's last evaluation in the hospital was in February 2017 and at that time the patient underwent successful stenting of the ostial proximal up to is marginal branch, OM1, in addition to successful stenting of the proximal right coronary artery. The patient came into the emergency department this morning with acute respiratory distress. He was brought in via EMS. He was very hypoxic at home and his pulse ox was 70%. He was placed on CPAP on the Route and in the emergency department the patient had a blood gas that showed severe a stress and he was placed on BiPAP to which she failed and subsequently he was intubated and placed on mechanical ventilator. Post intubation blood gases showed a pH of 7.06 with a pCO2 of 85 and pO2 of 400. Based on this, the patient was placed on assist control mode at the rate of 24, tidal volume was 500 with an FiO2 dropped down to 50% and a rate of 24 and a PEEP of 5. Post this, blood gases were done and showed a pH of 7.25 with a pCO2 of 57 and pO2 133. Currently the patient is hypotensive and the blood pressure in the mid 80s. He was given a total of 2 L of lactated Ringer. He is on no pressors for the time being. His white cell count was at 15.6. He had a lactic acid level of 6.0. The proBNP level was 4000. First set of troponin was 0.016. Rest of the blood work and electrolytes are within normal limits and the blood sugar was at 260. D-dimer was at 2.55. CT angios the chest was done in the emergency department and the CAT scan showed diffuse centrilobular emphysema paraseptal emphysema. There is evidence of bibasilar subsegmental atelectasis. Patchy left basilar infiltrate. No pleural effusion. No evidence of any pulmonary edema. No evidence of any pulmonary embolism. ET tube was in good location. Currently the patient is sedated and is confident comfortable. He is synchronous with the mechanical ventilator. He is currently on 30 mics of propofol and the patient is also receiving normal saline today to follow 25 mL an hour. Urine output is in order of 10-15 mL an hour. On today's evaluation of 03/17/2018, the patient is being seen for a follow-up. The patient was in acute respiratory failure secondary to COPD and CHF exacerbation. On today's evaluation remains sedated and is calm and comfortable. He is easily arousable once off sedation. The patient remains on a mechanical ventilator on assist control mode at the rate of 24, FiO2 is down to 40% with a 5 of PEEP and a tidal volume of 500 with a rate of 24. The chest x-ray from today shows a component of pulmonary vessel congestion/edema. Noted the patient has underlying cardiomyopathy with an ejection fraction of 20-25%. ET tube is in a good location and the patient has a left subclavian triple lumen catheter with position being in a mid SVC an 80 to be also in good location. No significant airspace disease or infiltrates. The patient remains on a combination of Zosyn and Levaquin. The patient is receiving DuoNeb neb last treatment [id number] and the patient is also on IV Solu Medrol 60 mg every 6 hours. Peak airway pressures around 2324. The patient is not showing any significant bronchospasm and wheezing on today's evaluation. He is receiving IV fluids. He is hemodynamically stable. He is not requiring any pressors. Echocardiogram results were noted. No evidence of any bleeding from his stomachtube is in place. On 03/18/2018 the patient is being seen for a follow-up. This morning, the patient is still on Diprivan. He was an assist-control mode with essentially the same vent setting with an FiO2 brought up to 50% based on the pO2 that was barely below 60. Nevertheless, the patient had no significant elevation of the peak and static pressures. Some looseness for secretions were seen and orotracheal tube and these were being suctioned out by respiratory therapy. No fever. No chills. Chest x-ray shows some mild pulmonary vascular congestion. The patient is still on Lasix 40 g I push every 12 hours and the patient is a negative fluid balance. The patient is also being covered with a combination of Zosyn and Levaquin for bilateral lower lobe pneumonia. The patient is hemodynamically stable. The patient is on bronchodilators and the patient is on IV Solu-Medrol in addition. Noted the patient has impaired heart function based on the echo and ejection fraction is around 20%. The patient has no significant arrhythmias. Cardiac rhythm is sinus. Afebrile. He is still nothing by mouth for now. Based on all this, I took the patient off propofol and the patient was found to have adequate weaning parameters with a rapid shallow breathing index of 70. Subsequently the patient was given a spontaneous breathing trial with a pressure support of 5 and a PEEP of 5. The blood gases at that point showed a pH of 7.42 with a pCO2 of 54 and pO2 of 74 and this was done and FiO2 of 50%. At that point, the patient was extubated and the patient is currently on high flow oxygen at 10 L/m nasal cannula. Sputum analysis collected earlier showed strep pneumo. On 03/19/2019 the patient is being seen for a follow-up. The patient was extubated successfully yesterday without any major difficulties. Overnight he was doing well and earlier this morning the patient became diaphoretic and more short of breath and bronchospastic and wheezy. His chest x-ray shows pulmonary vessel congestion. No consolidation or airspace disease. The sputum culture has shown Streptococcus pneumonia and the patient is still and accommodation of Zosyn and Levaquin. The patient on IV Lasix 40 minutes every 12 hours and is in a negative fluid balance. Still on bronchodilators. He'll IV Solu-Medrol. Ejection fraction is around 20%. No signs of delirium tremens and the patient is tolerating diet this morning. He does have a mild cough with congestion his chest. No fever. No chills. No altered mentation. No agitation. The patient has no other complaints otherwise for now. On 03/20/2018, I'm seeing this patient for a follow-up. He has no specific complaints. Earlier last night the patient became somewhat agitated and he developed increased shortness of breath and hypertension. He was getting slightly confused also. He was given Ativan and throughout the night he received a total of 2.5 mg of Ativan. This morning his wide awake and alert and following commands and answering questions and sitting up on a chair without any major difficulties. He remains on IV Lasix 40 mg every 12 hours. He is in a negative fluid balance. Chest x-ray shows improvement in the volume status. He is on oral Levaquin regarding the pneumococcal pneumonia. He is also on IV Solu-Medrol 40 g every 8 hours. Is producing adequate amount of urine output. Meneses catheter in place. He also has a left subclavian triple- lumen catheter in and Artline. No nausea. No vomiting. He was started on a combination of metoprolol 50 mg twice and entresto in regards to his heart failure. On 03/21/2019 I'm seeing this patient for a follow-up. The patient is doing in much better. The patient does not have any complaints. He got moved out of the intensive care unit yesterday. He is post respiratory failure requiring intubation mechanical ventilation secondary to COPD exacerbation, CHF and pneumonia. Remains on IV Solu Medrol. Remains on IV Lasix. He is in a negative fluid balance. He is currently down to 40s about 2 by nasal cannula. No cough. No sputum production. Strength is improving. The patient is emanating. Tolerating his diet. On 03/22/2018, the patient is doing extremely well. The patient is currently off oxygen room air. I'm going to this continued IV Lasix and put him on a 40 mg of Lasix and a daily basis. Pulse ox is 95%. The patient is completing a course of Levaquin regarding pneumococcal pneumonia. No nausea. No vomiting. His emanating. No change in mental status. No other significant events over the past 24 hours. The patient was treated in intensive care unit and his acute hypoxic respiratory failure has premature subsided. Objective - Vital Signs Vital signs: Vital Signs Temp 97.1 F L 03/22/18 11:39 Pulse 66 03/22/18 11:39 Resp 18 03/22/18 11:39 BP 89/61 03/22/18 11:39 Pulse Ox 96 03/22/18 11:39 Intake & Output 03/21/18 03/22/18 03/22/18 18:59 06:59 18:59 Intake Total 360 900 Output Total 300 1425 Balance 60 -525 Weight 74.8 kg Intake: Oral 360 900 Output: Urine 300 1425 Other: Voiding Method Urinal # Voids 1 ABP, PAP, CO, CI - Last Documented Arterial Blood Pressure 147/66 Pulmonary Artery Pressure 0/0 - Exam Patient is laying down comfortably in bed. No signs of any acute respiratory distress. Head exam was generally normal. There was no scleral icterus or corneal arcus. Mucous membranes were moist. Examination neck shows positive JVDs and there is no goiter or neck masses. No lymphadenopathy. No thrush. Lungs sounds are diminished bilaterally along with some scattered rhonchi and scattered expiratory wheezes without the lung kinney. Cardiac exam revealed the PMI to be normally situated and sized. The rhythm was regular and no extrasystoles were noted during several minutes of auscultation. The first and second heart sounds were normal and physiologic splitting of the second heart sound was noted. There were no murmurs, rubs, clicks, or gallops. Abdominal exam revealed normal bowel sounds. The abdomen was soft, non-tender, and without masses, organomegaly, or appreciable enlargement of the abdominal aorta. Examination of the extremities revealed easily palpable radial, femoral and pedal pulses. There was no cyanosis, clubbing or edema. Examination of the skin revealed no evidence of significant rashes, suspicious appearing nevi or other concerning lesions. Neurologically the patient is awake and alert and following commands - Labs CBC & Chem 7: 03/21/18 05:42 03/22/18 05:30 Labs: Abnormal Lab Results - Last 24 Hours (Table) 03/21/18 03/21/18 03/22/18 Range/Units 16:49 21:06 05:30 Chloride 92 L (98-107) mmol/L Carbon Dioxide 36 H (22-30) mmol/L BUN 37 H (9-20) mg/dL Glucose 135 H (74-99) mg/dL POC Glucose (mg/dL) 157 H 116 H (75-99) mg/dL 03/22/18 03/22/18 Range/Units 05:40 11:59 Chloride (98-107) mmol/L Carbon Dioxide (22-30) mmol/L BUN (9-20) mg/dL Glucose (74-99) mg/dL POC Glucose (mg/dL) 135 H 114 H (75-99) mg/dL Microbiology - Last 24 Hours (Table) 03/16/18 02:43 Blood Culture - Final Blood No Growth after 144 hours Assessment and Plan Plan: Assessment 1 acute hypoxic respiratory failure, likely on the basis of COPD exacerbation/ left lower lobe pneumonia. Patient is improved and the patient's oxygenation is normalized and inspect to room air maintaining his saturation above 90%. Patient was treated for an acute pneumonia/pneumococcal pneumonia in addition to COPD exacerbation possibly component of CHF. 2 acute hypercapnic respiratory failure/acute respiratory respiratory acidosis, improved 3 acute lactic acidosis, recovered 4 congestion heart failure with an ejection fraction of 20% to 25% 5 hypotension, recovered with fluid resuscitation and pressors. The hypotension recovered and the patient's blood pressure is normalized for now 6 coronary artery disease with previous coronary intervention and stenting, please refer to the catheterization from 2017 7 previous history of nonsustained V. tach 8 previous history of DVT 9 peripheral vascular disease with a previous fem-fem bypass surgery 10 acute leukocytosis, recovered 11 hyperlipidemia 12 previous history of hypertension 13 restless leg syndrome 14 sciatica 15 smoker and this includes tobacco and marijuana Plan Stop the IV Lasix and put the patient oral Lasix 40 minutes by mouth daily. Continue prednisone burst taper. Oxidation is normalized. Continue course of Levaquin. Discharge liver medicine and I will be glad to follow-up this patient on outpatient basis regarding his COPD pneumonia and CHF and other complications. Overall pulmonate status is stable. Smoking cessation counseling was done.
--- NOTE | 2018-03-23 06:12 | DS ---
DISCHARGE SUMMARY DATE OF ADMISSION: 03/16/18. DATE OF DISCHARGE: 03/22/18. FINAL DIAGNOSES: 1. Acute chronic obstructive pulmonary disease exacerbation. 2. Left lower lobe pneumonia suspect gram-negative organism, present on admission. 3. Acute hypercapnic and hypoxic respiratory failure, status post being on the ventilator. 4. Acute respiratory acidosis and acute lactic acidosis. 5. Acute on chronic congestive heart failure exacerbation from systolic dysfunction, ejection fraction 20-25% from ischemic cardiomyopathy. 6. Peripheral artery disease with prior history fem-fem bypass. 7. Hyperlipidemia. 8. Essential hypertension. 9. Restless legs syndrome. 10.Chronic rotator cuff injury. 11.Gastroesophageal reflux disease. 12.Acute delirium multifactorial, improved. 13.Coronary artery disease. HOSPITAL COURSE: This patient presented with acute shortness of breath with combination of the above. Doing much better with Lasix, bronchodilators, and pneumonia. At the time of discharge, patient is up out of bed. Pulse ox 96% on room air. Overall doing much better. The patient's 2D echocardiogram showed EF of 20-25% with severe global hypokinesia. Patient now tolerating his diet. On examination, lungs decreased breath sounds. Cardiovascular: First and second sounds normal. Psych: AO x3. Care was discussed with the patient and reminded not to smoke. CONSULTATION: 1. Dr. Menjivar from Pulmonary. 2. Dr. VC Razo from Cardiology. HOME GO MEDICATIONS: 1. Requip 2 mg q.h.s. 2. ProAir 2 puffs q.6h p.r.n. 3. Plavix 75 mg a day. 4. Nitrostat 0.4 sublingual q.5 p.r.n. 5. Tudorza 1 puff b.i.d. 6. Ventolin 2.5 q.6h p.r.n. 7. Symbicort 160/4.5, 2 puffs b.i.d. 8. Aspirin 81 mg a day. 9. Lipitor 80 mg q.h.s. 10.Lasix 40 mg a day. 11.DuoNeb t.i.d. 12.Levaquin 750 mg a day for 5 days. 13.Lopressor 50 mg b.i.d. 14.Nicotine 20 mg patch. 15.Entresto one tablet p.o. b.i.d. FOLLOW UP: With Cardiology in 1 week, Dr. Oden in 3 days. BMP in 3 days. Follow up with Pulmonary. Discussion and discharge planning more than 35 minutes. MMODL / IJN: [id number] /
== END 2018-03-22 14:22 | DRG 208 ==
LOC: EC 02:38 → 6ICU 05:29 → 6SEL 03-20 22:44
PROVIDERS: ADMIT Hospitalist; ATTEND Hospitalist
PROC: 5A1945Z Respiratory Ventilation, 24-96 Consecutive Hours (ICD-10-PCS; principal; 2018-03-16)
PROC: 03HY32Z Insertion of Monitoring Device into Upper Artery, Percutaneous Approach (ICD-10-PCS; 2018-03-16)
PROC: 02HV33Z Insertion of Infusion Device into Superior Vena Cava, Percutaneous Approach (ICD-10-PCS; 2018-03-16)
PROC: 4A133B1 Monitoring of Arterial Pressure, Peripheral, Percutaneous Approach (ICD-10-PCS; 2018-03-16)
PROC: 4A133J1 Monitoring of Arterial Pulse, Peripheral, Percutaneous Approach (ICD-10-PCS; 2018-03-16)
PROC: 5A09357 Assistance with Respiratory Ventilation, Less than 24 Consecutive Hours, Continuous Positive Airway Pressure (ICD-10-PCS; 2018-03-16)
PROC: 0BH17EZ Insertion of Endotracheal Airway into Trachea, Via Natural or Artificial Opening (ICD-10-PCS; 2018-03-16)
PROC: 0D9670Z Drainage of Stomach with Drainage Device, Via Natural or Artificial Opening (ICD-10-PCS; 2018-03-16)
PROC: 3E0G76Z Introduction of Nutritional Substance into Upper GI, Via Natural or Artificial Opening (ICD-10-PCS; 2018-03-17)
PROC: 5A09457 Assistance with Respiratory Ventilation, 24-96 Consecutive Hours, Continuous Positive Airway Pressure (ICD-10-PCS; 2018-03-19)
DX: J96.01 Acute respiratory failure with hypoxia (principal); R57.0 Cardiogenic shock; I50.23 Acute on chronic systolic (congestive) heart failure; J13 Pneumonia due to Streptococcus pneumoniae; I16.1 Hypertensive emergency; E87.2 Acidosis; I47.2 Ventricular tachycardia; J98.11 Atelectasis; F05 Delirium due to known physiological condition; J96.02 Acute respiratory failure with hypercapnia; J43.2 Centrilobular emphysema; I11.0 Hypertensive heart disease with heart failure; K21.9 Gastro-esophageal reflux disease without esophagitis; E78.5 Hyperlipidemia, unspecified; G89.29 Other chronic pain; G25.81 Restless legs syndrome; I25.2 Old myocardial infarction; M19.91 Primary osteoarthritis, unspecified site; I25.5 Ischemic cardiomyopathy; I49.3 Ventricular premature depolarization; M54.40 Lumbago with sciatica, unspecified side; M25.551 Pain in right hip; M25.552 Pain in left hip; M79.671 Pain in right foot; I25.10 Atherosclerotic heart disease of native coronary artery without angina pectoris; F17.200 Nicotine dependence, unspecified, uncomplicated; Z71.6 Tobacco abuse counseling; Z79.02 Long term (current) use of antithrombotics/antiplatelets; Z79.82 Long term (current) use of aspirin; Z79.51 Long term (current) use of inhaled steroids; Z79.52 Long term (current) use of systemic steroids; Z79.899 Other long term (current) drug therapy; Z86.718 Personal history of other venous thrombosis and embolism; Z95.5 Presence of coronary angioplasty implant and graft; Z86.79 Personal history of other diseases of the circulatory system; Z90.49 Acquired absence of other specified parts of digestive tract; Z83.3 Family history of diabetes mellitus; Z82.49 Family history of ischemic heart disease and other diseases of the circulatory system; Z83.6 Family history of other diseases of the respiratory system
CPT/HCPCS: 36415; 36600; 71045; 71275; 80048; 80053; 81001; 82550; 82553; 82805; 83605; 83735; 83880; 84100; 84132; 84484; 85025; 85379; 87040; 87070; 87077; 87186; 87205; 93005; 93306; 94002; 94003; 94640; 94660

== ENCOUNTER 2018-05-18 04:29 | Inpatient (IN) | payer MEDICARE, OTHER ==
[2018-05-18] MEDS ORDERED: ALBUTEROL NEBULIZED 2.5 MG/3 ML INHALATION STA (04:37)
[2018-05-18] MEDS ORDERED: IPRATROPIUM 0.5 MG/2.5 ML NEBU INHALATION STA (04:37)
[2018-05-18] MEDS ORDERED: ENALAPRILAT 1.25 MG/ML 1 ML VIAL IVP STA (04:47)
[2018-05-18] MEDS ORDERED: LORazepam 2 MG/ML INJ IV STA ×2 (04:47→04:49)
[2018-05-18] MEDS ORDERED: MORPHINE SULFATE 2 MG/ML SYRINGE IVP STA (04:47)
[2018-05-18 04:48] LABS: Glucose,Whole Blood 278 mg/dL (75-99)
[2018-05-18] MEDS ORDERED: NITROGLYCERIN-D5W PMX 50 MG in DEXTROSE/WATER 1 250ML.BAG IV ONE (04:49)
[2018-05-18 04:57] LABS: ALT 42 U/L (21-72); AST 36 U/L (17-59); Albumin 4.6 g/dL (3.5-5.0); Alkaline Phosphatase 71 U/L (38-126); Anion Gap 15 mmol/L; Blood Urea Nitrogen 10 mg/dL (9-20); Calcium 9.6 mg/dL (8.4-10.2); Carbon Dioxide 26 mmol/L (22-30); Chloride 102 mmol/L (98-107); Glucose 189 mg/dL (74-99); INR 1.1 (<1.2); Magnesium 2.3 mg/dL (1.6-2.3); Partial Thromboplastin Time 25.5 sec (22.0-30.0); Potassium 5.5 mmol/L (3.5-5.1); Prothrombin Time 10.5 sec (9.0-12.0); Sodium 143 mmol/L (137-145); Total Bilirubin 0.5 mg/dL (0.2-1.3); Total Protein 7.4 g/dL (6.3-8.2)
--- NOTE | 2018-05-18 05:00 | XR ---
EXAMINATION TYPE: XR chest 1V portable DATE OF EXAM: 05/18/2018 COMPARISON: 03/20/2018 HISTORY: Difficulty breathing TECHNIQUE: Single frontal view of the chest is obtained. FINDINGS: There is pulmonary interstitial and alveolar edema. There are chest leads. Heart appears e nlarged. Thoracic aorta is atheromatous. IMPRESSION: There is pulmonary edema consistent with congestive heart failure that appears worse anne-marie n last exam.
[2018-05-18 05:01] LABS: Basophils # (A) 0.1 k/uL (0-0.2); Basophils % (A) 1 %; Eosinophils # (A) 0.3 k/uL (0-0.7); Eosinophils % (A) 3 %; HCT 52.7 % (39.0-53.0); HGB 16.5 gm/dL (13.0-17.5); Hypochromasia Slight; Lymphocytes % (A) 36 %; MCH 31.4 pg (25.0-35.0); MCHC 31.4 g/dL (31.0-37.0); MCV 100.1 fL (80.0-100.0); Mean Platelet Volume 8.5; Monocytes # (A) 0.8 k/uL (0-1.0); Monocytes % (A) 6 %; Neutrophils % (A) 53 %; Platelet Count 261 k/uL (150-450); RBC 5.26 m/uL (4.30-5.90); RDW 13.5 % (11.5-15.5); WBC 13.2 k/uL (3.8-10.6)
[2018-05-18 05:03] LABS: Lymphocytes # (A) 4.8 k/uL (1.0-4.8)
[2018-05-18 05:25] LABS: Troponin I 0.019 ng/mL (0.000-0.034)
--- NOTE | 2018-05-18 05:26 | ED ---
General Adult HPI - General Chief complaint: Shortness of Breath Stated complaint: Shortness of Breath Time Seen by Provider: 05/18/18 04:30 Source: patient, EMS, RN notes reviewed, old records reviewed Mode of arrival: EMS Limitations: no limitations - History of Present Illness Initial comments: This is a 67-year-old male the ER for evaluation. Patient presents to the ER for evaluation of severe shortness of breath, patient significant distress. History obtained by EMS and patient's chart. Patient called EMS and he was found to be in significant respiratory distress. EMS transfer patient to emergency room. Patient unable to give history - Related Data Home Medications Medication Instructions Recorded Confirmed rOPINIRole HCL [Requip] 2 mg PO HS 10/08/14 05/18/18 Albuterol Sulfate [Proair Hfa] 2 puff INHALATION RT-Q6H PRN 03/04/17 05/18/18 Aclidinium [place] [Tudorza 1 puff PO RT-BID 03/16/18 05/18/18 Pressair] Albuterol Nebulized [Ventolin 2.5 mg INHALATION RT-Q6H PRN 03/16/18 05/18/18 Nebulized] Budesonide-Formot 160-4.5 Mcg 2 puff INHALATION RT-BID 03/16/18 05/18/18 [Symbicort 160-4.5 Mcg Inhaler] Previous Rx's Medication Instructions Recorded Clopidogrel [Plavix] 75 mg PO DAILY #30 tab 03/07/17 Nitroglycerin Sl Tabs [Nitrostat] 0.4 mg SUBLINGUAL Q5M PRN #25 tab 03/07/17 Aspirin 81 mg PO DAILY chew 03/22/18 Atorvastatin [Lipitor] 80 mg PO HS #30 tab 03/22/18 Furosemide [Lasix] 40 mg PO DAILY #30 tab 03/22/18 Ipratropium-Albuterol Nebulize 3 ml INHALATION TID #90 ampul.neb 03/22/18 [Duoneb 0.5 mg-3 mg/3 ml Soln] Levofloxacin [Levaquin] 750 mg PO DAILY #5 tab 03/22/18 Metoprolol Tartrate [Lopressor] 50 mg PO BID #60 tab 03/22/18 Nicotine 21Mg/24Hr Patch [Habitrol] 1 patch TRANSDERM DAILY #30 patch 05/13/18 Sacubitril/Valsartan [Entresto 24 1 each PO BID #60 tablet 03/22/18 mg-26 mg Tablet] Allergies Allergy/AdvReac Type Severity Reaction Status Date / Time No Known Allergies Allergy Verified 05/18/18 04:39 Review of Systems ROS Statement: Those systems with pertinent positive or pertinent negative responses have been documented in the HPI. ROS Other: All systems not noted in ROS Statement are negative. Past Medical History Past Medical History: Coronary Artery Disease (CAD), Heart Failure, COPD, Deep Vein Thrombosis (DVT), GERD/Reflux, Hyperlipidemia, Hypertension, Myocardial Infarction (ND), Vascular Disorder Additional Past Medical History / Comment(s): 12/01/14 Pt admitted to floor s/p R fem fem bypass. Other HX: ND's x 11 SEP 2014, CHF, RESTLESS LEG SYNDROME, SEVERE RT FOOT PAIN R/T POOR CIRCULTION, SCIATICA PAIN, LEFT ROTATOR CUFF INJURY. BILATERAL HIP PAIN Last Myocardial Infarction Date:: 10/08/14 History of Any Multi-Drug Resistant Organisms: None Reported Past Surgical History: Appendectomy, Bowel Resection, Heart Catheterization With Stent, Hernia Repair Additional Past Surgical History / Comment(s): 12/01/14 R femfem bypass, Abdominal aortagram with bilateral extremity, HEART CATH WITH STENT SEP 2014 , HERNIA SURG X3. Past Anesthesia/Blood Transfusion Reactions: No Reported Reaction Date of Last Stent Placement:: 2013 Past Psychological History: No Psychological Hx Reported Smoking Status: Current every day smoker Past Alcohol Use History: None Reported Past Drug Use History: Marijuana - Past Family History Mother Family Medical History: Chest Pain / Angina, Diabetes Mellitus, Hypertension, Myocardial Infarction (ND) Additional Family Medical History / Comment(s): Mother of ND at age 84 yrs. Father Additional Family Medical History / Comment(s): Father had black lung disease. General Exam Limitations: no limitations, altered mental status General appearance: alert, anxious, in distress Head exam: Present: atraumatic, normocephalic, normal inspection Eye exam: Present: normal appearance, PERRL, EOMI. Absent: scleral icterus, conjunctival injection, periorbital swelling ENT exam: Present: normal exam, mucous membranes moist Neck exam: Present: normal inspection. Absent: tenderness, meningismus, lymphadenopathy Respiratory exam: Present: respiratory distress, wheezes, rales, accessory muscle use, decreased breath sounds, prolonged expiratory. Absent: rhonchi, stridor Cardiovascular Exam: Present: tachycardia, irregular rhythm, normal heart sounds. Absent: systolic murmur, diastolic murmur, rubs, gallop, clicks GI/Abdominal exam: Present: soft, normal bowel sounds. Absent: distended, tenderness, guarding, rebound, rigid Extremities exam: Present: normal inspection, full ROM, normal capillary refill. Absent: tenderness, pedal edema, joint swelling, calf tenderness Back exam: Present: normal inspection Neurological exam: Present: alert, oriented X3, CN II-XII intact Psychiatric exam: Present: normal affect, normal mood Skin exam: Present: warm, dry, intact, normal color. Absent: rash Course Vital Signs 05/18/18 05/18/18 05/18/18 04:29 04:30 04:47 Temperature 96.8 F L Pulse Rate 146 H 146 H Respiratory 30 H 32 H Rate Blood Pressure 237/97 O2 Sat by Pulse 96 Oximetry 05/18/18 05/18/18 05/18/18 04:52 04:58 05:02 Temperature 97 F L Pulse Rate 139 H 136 H 131 H Respiratory 20 20 Rate Blood Pressure 149/76 131/83 O2 Sat by Pulse 98 96 Oximetry 05/18/18 05/18/18 05/18/18 05:03 05:12 05:23 Temperature Pulse Rate 130 H 124 H 116 H Respiratory 24 24 24 Rate Blood Pressure 122/68 120/69 104/63 O2 Sat by Pulse 96 96 95 Oximetry 05/18/18 05/18/18 05/18/18 05:33 05:42 05:45 Temperature Pulse Rate 118 H 109 H 105 H Respiratory 24 24 Rate Blood Pressure 108/60 100/60 O2 Sat by Pulse 95 96 Oximetry 05/18/18 05/18/18 05/18/18 05:54 06:00 06:15 Temperature 98.1 F Pulse Rate 113 H 99 107 H Respiratory 24 20 20 Rate Blood Pressure 105/65 106/66 109/70 O2 Sat by Pulse 96 97 97 Oximetry - Reevaluation(s) Reevaluation #1: 05/18/18 06:19 Patient placed on BiPAP and breathing treatment, nitro drip immediately and evaluation in the emergency room. EKG Findings - EKG Comments: EKG Findings:: EKG shows sinus tachycardia rate 160, QRS 108, QTc 494. EKG shows sinus rhythm rate of 104, QRS 110, QTc 681 Medical Decision Making - Medical Decision Making 67 male the ER for evaluation of significant shortness of breath, or shortness stress, medial placed on BiPAP with strong persistent medical therapy upon arrival to emergency room. Patient under acute guidance did begin to show some improvement in breathing and mental state. Patient will be admitted for continued BiPAP steroids breathing treatments. - Lab Data Result diagrams: 05/18/18 04:40 05/18/18 04:40 Lab Results 05/18/18 05/18/18 05/18/18 Range/Units 04:40 04:40 04:40 WBC 13.2 H (3.8-10.6) k/uL RBC 5.26 (4.30-5.90) m/uL Hgb 16.5 (13.0-17.5) gm/dL Hct 52.7 (39.0-53.0) % MCV 100.1 H (80.0-100.0) fL MCH 31.4 (25.0-35.0) pg MCHC 31.4 (31.0-37.0) g/dL RDW 13.5 (11.5-15.5) % Plt Count 261 (150-450) k/uL Neutrophils % 53 % Lymphocytes % 36 % Monocytes % 6 % Eosinophils % 3 % Basophils % 1 % Neutrophils # 7.0 (1.3-7.7) k/uL Lymphocytes # 4.8 (1.0-4.8) k/uL Monocytes # 0.8 (0-1.0) k/uL Eosinophils # 0.3 (0-0.7) k/uL Basophils # 0.1 (0-0.2) k/uL Manual Slide Review Performed Hypochromasia Slight PT (9.0-12.0) sec INR (<1.2) APTT (22.0-30.0) sec Sodium 143 (137-145) mmol/L Potassium 5.5 H (3.5-5.1) mmol/L Chloride 102 (98-107) mmol/L Carbon Dioxide 26 (22-30) mmol/L Anion Gap 15 mmol/L BUN 10 (9-20) mg/dL Creatinine 0.90 (0.66-1.25) mg/dL Est GFR (CKD-EPI)AfAm >90 (>60 ml/min/1.73 sqM) Est GFR (CKD-EPI)NonAf 88 (>60 ml/min/1.73 sqM) Glucose 189 H (74-99) mg/dL POC Glucose (mg/dL) (75-99) mg/dL POC Glu Driller'S Assistant ID Calcium 9.6 (8.4-10.2) mg/dL Magnesium 2.3 (1.6-2.3) mg/dL Total Bilirubin 0.5 (0.2-1.3) mg/dL AST 36 (17-59) U/L ALT 42 (21-72) U/L Alkaline Phosphatase 71 (38-126) U/L Total Creatine Kinase 169 (55-170) U/L CK-MB (CK-2) 4.0 H* (0.0-2.4) ng/mL CK-MB (CK-2) Rel Index 2.4 Troponin I 0.019 (0.000-0.034) ng/mL NT-Pro-B Natriuret Pep pg/mL Total Protein 7.4 (6.3-8.2) g/dL Albumin 4.6 (3.5-5.0) g/dL 05/18/18 05/18/18 05/18/18 Range/Units 04:40 04:40 04:46 WBC (3.8-10.6) k/uL RBC (4.30-5.90) m/uL Hgb (13.0-17.5) gm/dL Hct (39.0-53.0) % MCV (80.0-100.0) fL MCH (25.0-35.0) pg MCHC (31.0-37.0) g/dL RDW (11.5-15.5) % Plt Count (150-450) k/uL Neutrophils % % Lymphocytes % % Monocytes % % Eosinophils % % Basophils % % Neutrophils # (1.3-7.7) k/uL Lymphocytes # (1.0-4.8) k/uL Monocytes # (0-1.0) k/uL Eosinophils # (0-0.7) k/uL Basophils # (0-0.2) k/uL Manual Slide Review Hypochromasia PT 10.5 (9.0-12.0) sec INR 1.1 (<1.2) APTT 25.5 (22.0-30.0) sec Sodium (137-145) mmol/L Potassium (3.5-5.1) mmol/L Chloride (98-107) mmol/L Carbon Dioxide (22-30) mmol/L Anion Gap mmol/L BUN (9-20) mg/dL Creatinine (0.66-1.25) mg/dL Est GFR (CKD-EPI)AfAm (>60 ml/min/1.73 sqM) Est GFR (CKD-EPI)NonAf (>60 ml/min/1.73 sqM) Glucose (74-99) mg/dL POC Glucose (mg/dL) 278 H (75-99) mg/dL POC Glu Driller'S Assistant ID [place] Calcium (8.4-10.2) mg/dL Magnesium (1.6-2.3) mg/dL Total Bilirubin (0.2-1.3) mg/dL AST (17-59) U/L ALT (21-72) U/L Alkaline Phosphatase (38-126) U/L Total Creatine Kinase (55-170) U/L CK-MB (CK-2) (0.0-2.4) ng/mL CK-MB (CK-2) Rel Index Troponin I (0.000-0.034) ng/mL NT-Pro-B Natriuret Pep 3580 pg/mL Total Protein (6.3-8.2) g/dL Albumin (3.5-5.0) g/dL - Radiology Data Radiology results: report reviewed (Chest x-ray is positive for CHF), image reviewed Critical Care Time Critical Care Time: Yes Total Critical Care Time: 31 Disposition Clinical Impression: Congestive heart failure, COPD with acute exacerbation, Acute exacerbation of chronic obstructive airways disease, Acute respiratory failure, Hypertensive emergency Disposition: ADMITTED IP TO THIS [facility] Condition: Critical Referrals: Neo Oden DO [Primary Care Provider] - 1-2 days
[2018-05-18] MEDS ORDERED: SODIUM CHLORIDE 0.9% 500 ML IV STA (05:47)
[2018-05-18] MEDS ORDERED: IPRATROPIUM-ALBUTEROL 3 ML NEB INHALATION STA (06:20)
[2018-05-18] MEDS ORDERED: methylPREDNISolone SOD SUCCI 125 MG/2 ML VIAL IV STA (06:20)
[2018-05-18] MEDS: IPRATROPIUM-ALBUTEROL 3 ML NEB INHALATION SCH ×4 (07:28→19:23)
[2018-05-18] MEDS: SODIUM CHLORIDE 0.9% 1,000 ML IV SCH ×2 (07:30→15:45)
[2018-05-18 08:28] LABS: Glucose,Whole Blood 91 mg/dL (75-99)
[2018-05-18] MEDS ORDERED: NITROGLYCERIN SL TABS 0.4 MG TAB SUBLINGUAL PRN (08:38)
--- NOTE | 2018-05-18 08:47 | P.CRDCN ---
History of Present Illness Consult date: 05/18/18 Chief complaint: Shortness of breath History of present illness: This is another admission for this 67-year-old gentleman with an extensive cardiac history consistent off coronary artery disease and prior stenting of the left circumflex and RCA in 2013, severe ischemic cardiomyopathy with a recent echocardiogram in March 2018 showing an EF of 20-25%, chronic respiratory failure secondary to COPD, hypertension, and dyslipidemia. The patient just was discharged from the hospital in March 2018 after he was admitted with a pneumonia/COPD exacerbation. He was in his usual state of health until yesterday when suddenly he developed shortness of breath. He did not have any symptoms of chest pain or chest discomfort. No cough or fever or chills. No dizziness or lightheadedness. No syncope. No feeling of heart racing or fluttering. Ambulance was called and the patient was found to be in acute respiratory distress and he was about to be intubated but in the hospital he was placed on BiPAP with significant improvement in his respiratory distress and shortness of breath. He was found to be also hypertensive with a systolic blood pressure about 230 mmHg. Please note that the patient was not taking all his cardiac medications according to him because he was running output. Currently the patient is mild respiratory distress with he's on BiPAP. He is satting good. The EKG showed sinus tachycardia when he presented to the hospital but currently he has been maintaining a heart rate around 90 bpm. the first set of troponin came in to be within normal limits but the CK-MB is slightly elevated. We'll follow-up with the 2 more sets of serial cardiac enzymes. The chest x- ray showed findings consistent with pulmonary edema. The BNP came in to be also elevated and around 3000. The patient was placed on nitro drip when he presented to the hospital and currently his systolic blood pressure is in the 90s. I am going to DC the nitro drip at this point. Past Medical History Past Medical History: Coronary Artery Disease (CAD), Heart Failure, COPD, Deep Vein Thrombosis (DVT), GERD/Reflux, Hyperlipidemia, Hypertension, Myocardial Infarction (NM), Vascular Disorder Additional Past Medical History / Comment(s): 12/01/14 Pt admitted to floor s/p R fem fem bypass. Other HX: NM's x 11 SEP 2014, CHF, RESTLESS LEG SYNDROME, SEVERE RT FOOT PAIN R/T POOR CIRCULTION, SCIATICA PAIN, LEFT ROTATOR CUFF INJURY. BILATERAL HIP PAIN Last Myocardial Infarction Date:: 10/08/14 History of Any Multi-Drug Resistant Organisms: None Reported Past Surgical History: Appendectomy, Bowel Resection, Heart Catheterization With Stent, Hernia Repair Additional Past Surgical History / Comment(s): 12/01/14 R femfem bypass, Abdominal aortagram with bilateral extremity, HEART CATH WITH STENT SEP 2014 , HERNIA SURG X3. Past Anesthesia/Blood Transfusion Reactions: No Reported Reaction Date of Last Stent Placement:: 2013 Past Psychological History: No Psychological Hx Reported Smoking Status: Current every day smoker Past Alcohol Use History: None Reported Past Drug Use History: Marijuana - Past Family History Mother Family Medical History: Chest Pain / Angina, Diabetes Mellitus, Hypertension, Myocardial Infarction (NM) Additional Family Medical History / Comment(s): Mother of NM at age 84 yrs. Father Additional Family Medical History / Comment(s): Father had black lung disease. Medications and Allergies Home Medications Medication Instructions Recorded Confirmed Type rOPINIRole HCL [Requip] 2 mg PO HS 10/08/14 05/18/18 History Albuterol Sulfate [Proair Hfa] 2 puff INHALATION RT-Q6H PRN 03/04/17 05/18/18 History Clopidogrel [Plavix] 75 mg PO DAILY #30 tab 03/07/17 05/18/18 Rx Nitroglycerin Sl Tabs [Nitrostat] 0.4 mg SUBLINGUAL Q5M PRN #25 tab 03/07/1707/28 Rx Aclidinium [place] [Tudorza 1 puff PO RT-BID 03/16/18 05/18/18 History Pressair] Albuterol Nebulized [Ventolin 2.5 mg INHALATION RT-Q6H PRN 03/16/18 05/18/18 History Nebulized] Budesonide-Formot 160-4.5 Mcg 2 puff INHALATION RT-BID 03/16/18 05/18/18 History [Symbicort 160-4.5 Mcg Inhaler] Aspirin 81 mg PO DAILY chew 03/22/18 05/18/18 Rx Atorvastatin [Lipitor] 80 mg PO HS #30 tab 03/22/18 05/18/18 Rx Furosemide [Lasix] 40 mg PO DAILY #30 tab 03/22/18 05/18/18 Rx Ipratropium-Albuterol Nebulize 3 ml INHALATION TID #90 ampul.neb 03/22/18 Rx [Duoneb 0.5 mg-3 mg/3 ml Soln] Levofloxacin [Levaquin] 750 mg PO DAILY #5 tab 03/22/18 05/18/18 Rx Metoprolol Tartrate [Lopressor] 50 mg PO BID #60 tab 03/22/18 05/18/18 Rx Nicotine 21Mg/24Hr Patch [Habitrol] 1 patch TRANSDERM DAILY #30 patch 03/22/18 05/18/18 Rx Sacubitril/Valsartan [Entresto 24 1 each PO BID #60 tablet 03/22/18 05/18/18 Rx mg-26 mg Tablet] Allergies Allergy/AdvReac Type Severity Reaction Status Date / Time No Known Allergies Allergy Verified 05/18/18 06:41 Physical Exam Vitals: Vital Signs Temp Pulse Resp BP Pulse Ox 05/18/18 07:43 72 05/18/18 07:31 88 05/18/18 06:44 98 F 100 20 101/64 97 05/18/18 06:24 96 20 98/62 97 05/18/18 06:15 98.1 F 107 H 20 109/70 97 05/18/18 06:00 99 20 106/66 97 05/18/18 05:54 113 H 24 105/65 96 05/18/18 05:45 105 H 05/18/18 05:42 109 H 24 100/60 96 05/18/18 05:33 118 H 24 108/60 95 05/18/18 05:23 116 H 24 104/63 95 05/18/18 05:12 124 H 24 120/69 96 05/18/18 05:03 130 H 24 122/68 96 05/18/18 05:02 131 H 05/18/18 04:58 136 H 20 131/83 96 05/18/18 04:52 97 F L 139 H 20 149/76 98 05/18/18 04:47 146 H 05/18/18 04:30 96.8 F L 146 H 32 H 237/97 96 05/18/18 04:29 30 H Intake and Output 05/17/18 05/18/18 05/18/18 22:59 06:59 14:59 Intake Total 6.1 Balance 6.1 Intake: Intake, IV Titration 6.1 Amount Nitroglycerin-D5w Pmx 50 6.1 mg In Dextrose/Water 1 250ml.bag @ 20 MCG/MIN 6 mls/hr IV .Q24H ONE Rx#: [id number] Other: Weight 81.647 kg - Constitutional General appearance: mild distress - Respiratory Respiratory: bilateral: rales - Cardiovascular Rhythm: regular Heart sounds: normal: S1, S2 Results 05/18/18 04:40 05/18/18 04:40 Cardiac Enzymes 05/18/18 05/18/18 Range/Units 04:40 04:40 AST 36 (17-59) U/L CK-MB (CK-2) 4.0 H* (0.0-2.4) ng/mL Troponin I 0.019 (0.000-0.034) ng/mL Coagulation 05/18/18 Range/Units 04:40 PT 10.5 (9.0-12.0) sec APTT 25.5 (22.0-30.0) sec CBC 05/18/18 Range/Units 04:40 WBC 13.2 H (3.8-10.6) k/uL RBC 5.26 (4.30-5.90) m/uL Hgb 16.5 (13.0-17.5) gm/dL Hct 52.7 (39.0-53.0) % Plt Count 261 (150-450) k/uL Comprehensive Metabolic Panel 05/18/18 Range/Units 04:40 Sodium 143 (137-145) mmol/L Potassium 5.5 H (3.5-5.1) mmol/L Chloride 102 (98-107) mmol/L Carbon Dioxide 26 (22-30) mmol/L BUN 10 (9-20) mg/dL Creatinine 0.90 (0.66-1.25) mg/dL Glucose 189 H (74-99) mg/dL Calcium 9.6 (8.4-10.2) mg/dL AST 36 (17-59) U/L ALT 42 (21-72) U/L Alkaline Phosphatase 71 (38-126) U/L Total Protein 7.4 (6.3-8.2) g/dL Albumin 4.6 (3.5-5.0) g/dL Current Medications Generic Name Dose Route Start Last Admin Trade Name Freq PRN Reason Stop Dose Admin Albuterol/Ipratropium 3 ml 05/18/18 08:00 05/18/18 07:28 Duoneb 0.5 Mg-3 Mg/3 Ml Soln INHALATION 3 ml RT-QID [facility] Administration Aspirin 81 mg 05/18/18 09:00 Aspirin PO DAILY [facility] Atorvastatin Calcium 80 mg 05/18/18 21:00 Lipitor PO HS [facility] Budesonide 1 mg 05/18/18 20:00 Pulmicort INHALATION RT-BID [facility] Clopidogrel Bisulfate 75 mg 05/18/18 09:00 Plavix PO DAILY [facility] Enoxaparin Sodium 40 mg 05/18/18 09:00 Lovenox SQ DAILY [facility] Formoterol Fumarate 20 mcg 05/18/18 20:00 Perforomist INHALATION RT-BID [facility] Furosemide 40 mg 05/18/18 09:00 Lasix IV Q12HR [facility] Nitroglycerin/Dextrose 50 mg/ 250 mls @ 6 mls/hr 05/18/18 04:49 05/18/18 05: 44 IV Solution IV 05/19/18 04:48 3 mcg/min .Q24H ONE 0.9 mls/hr Titration Protocol 20 MCG/MIN Sodium Chloride 1,000 mls @ 100 mls/hr 05/18/18 06:30 Saline 0.9% IV .Q10H [facility] Methylprednisolone Sodium Succinate 60 mg 05/18/18 12:00 Solu-Medrol IV Q6HR [facility] Metoprolol Tartrate 50 mg 05/18/18 09:00 Lopressor PO BID [facility] Nicotine 1 patch 05/18/18 09:00 Habitrol 21mg/24hr Patch TRANSDERM DAILY [facility] Nitroglycerin 0.4 mg 05/18/18 08:38 Nitrostat SUBLINGUAL Q5M PRN Chest Pain Ropinirole HCl 2 mg 05/18/18 21:00 Requip PO HS [facility] Intake and Output 05/17/18 05/18/18 05/18/18 22:59 06:59 14:59 Intake Total 6.1 Balance 6.1 Intake: Intake, IV Titration 6.1 Amount Nitroglycerin-D5w Pmx 50 6.1 mg In Dextrose/Water 1 250ml.bag @ 20 MCG/MIN 6 mls/hr IV .Q24H ONE Rx#: [id number] Other: Weight 81.647 kg 05/18/18 04:40 05/18/18 04:40 Assessment and Plan Assessment: Assessment #1 acute hypoxic respiratory failure #2 flash pulmonary edema. Likely to be precipitated by uncontrolled hypertension #3 hypertension emergency #4 known CAD and prior stenting of the RCA and LCx in 2013 #5 severe ischemic cardiomyopathy with an EF of 20-25% #6 advanced chronic obstructive pulmonary disease #7 noncompliance with medications as well as diet #8 multiple comorbid conditions Plan #1 I will start the patient on Lasix IV at 40 mg daily at this point. The pressure has been marginally low. Would push the Lasix more once his systolic pressure improved. #2 I would also start the patient on small dose of beta francesco with metoprolol for the same reason. We will increase the dose of metoprolol was supple pressure improve as well. #3 we would add small dose of lisinopril as well as Aldactone down the line as well. #5 monitor the kidney function and electrolytes #6 no need to repeat the echocardiogram in view of recent echo showing severe cardiomyopathy #7 the patient does need to have an AICD probably as an outpatient #8 he was educated about the importance of taking his medications as well as stop smoking. Thank you for allowing us participate in his care and we'll continue following up with the patient.
[2018-05-18] MEDS ORDERED: METOPROLOL TARTRATE 50 MG TAB PO SCH (09:00)
[2018-05-18 09:34] VITALS: BMI 26.2
[2018-05-18] MEDS: METOPROLOL TARTRATE 12.5 MG TAB PO SCH ×2 (10:40→20:19)
[2018-05-18] MEDS: CLOPIDOGREL 75 MG TAB PO SCH (10:42)
[2018-05-18] MEDS: ASPIRIN 81 MG PO SCH (10:42)
[2018-05-18] MEDS: ENOXAPARIN 40 MG/0.4 ML SYRINGE SQ SCH (10:49)
[2018-05-18] MEDS: NICOTINE 21MG/24HR PATCH TRANSDERM SCH (10:50)
[2018-05-18] MEDS: methylPREDNISolone SOD SUCCI 125 MG/2 ML VIAL IV SCH ×2 (12:54→18:43)
--- NOTE | 2018-05-18 13:24 | P.CNPUL ---
History of Present Illness Consult date: 05/18/18 Reason for consult: dyspnea History of present illness: 67-year-old male patient, got admitted to the ICU yesterday because of worsening shortness of breath and he was found to be in acute CHF and pulmonary edema. The patient also came in with hypertensive emergency and his blood pressure was poorly controlled with a systolic blood pressure as high as 230, And overnight the patient was placed on nitroglycerin drip for blood pressure control. This morning it is off the nitroglycerin drip. His chest x-ray is consistent with CHF and pulmonary edema and the patient is currently on BiPAP at a pressure of 14/6 cm of water and FiO2 of 40%. No chest pain. No angina. The patient denies taking any of the maintenance medication to was supposed to get following his discharge from the hospital approximately 3 weeks ago. Note that he is post respiratory failure with intubation mechanical ventilation. The patient has a proBNP level of 3580. First set of troponins of 0.019. Rest of the blood work and electrodes are all within normal limits and the potassium level is slightly elevated at 5.5. No fever. No chills. No hemoptysis. No pleurisy. No altered mentation and the patient is able to answer all questions effectively. Review of Systems Constitutional: Reports fatigue, Reports lethargy, Reports weakness Eyes: denies blurred vision, denies bulging eye, denies decreased vision Ears: deny: decreased hearing, ear discharge, earache Ears, nose, mouth and throat: Denies headache, Denies sore throat Cardiovascular: Reports dyspnea on exertion, Reports edema, Reports paroxysmal nocturnal dyspnea, Reports shortness of breath Respiratory: Reports cough, Reports dyspnea, Reports wheezing Gastrointestinal: Denies abdominal pain, Denies diarrhea, Denies nausea, Denies vomiting Genitourinary: Reports as per HPI Musculoskeletal: Reports as per HPI, Reports muscle weakness Musculoskeletal: absent: ankle pain, ankle stiffness, ankle swelling Integumentary: Denies pruritus, Denies rash Neurological: Reports weakness Psychiatric: Denies anxiety, Denies depression Endocrine: Reports as per HPI Hematologic/Lymphatic: Reports as per HPI Allergic/Immunologic: Reports as per HPI Past Medical History Past Medical History: Coronary Artery Disease (CAD), Heart Failure, COPD, Deep Vein Thrombosis (DVT), GERD/Reflux, Hyperlipidemia, Hypertension, Myocardial Infarction (AR), Vascular Disorder Additional Past Medical History / Comment(s): Chronic hypoxic respiratory failure secondary to COPD, chronic hypercapnic respiratory failure secondary to COPD, hypertension, CHF with an ejection fraction of 20-25%, coronary artery disease with previous coronary intervention and stenting please refer to the catheterization from 2017, previous history of nonsustained V. tach, previous history of DVT, peripheral vascular disease with a previous fem-fem bypass surgery, hyperlipidemia, hypertension, restless leg syndrome, sciatica, left rotator cuff injury, chronic bilateral hip pain, previous AR last one being in September 2014 Last Myocardial Infarction Date:: 10/08/14 History of Any Multi-Drug Resistant Organisms: None Reported Past Surgical History: Appendectomy, Bowel Resection, Heart Catheterization With Stent, Hernia Repair Additional Past Surgical History / Comment(s): 12/01/14 R femfem bypass, Abdominal aortagram with bilateral extremity, HEART CATH WITH STENT SEP 2014 , HERNIA SURG X3. Past Anesthesia/Blood Transfusion Reactions: No Reported Reaction Date of Last Stent Placement:: 2013 Past Psychological History: No Psychological Hx Reported Additional Psychological History / Comment(s): Pt lives alone in his home. He ambulates with a walker. He does not own a vehicle. His family takes him to [employer]. Smoking Status: Current every day smoker Past Alcohol Use History: None Reported Additional Past Alcohol Use History / Comment(s): Pt started smoking in 1965 and is a ppd smoker. Past Drug Use History: Marijuana Additional Drug Use History / Comment(s): MARIJUANA 3-4 X a week. On those days he smokes about 3 joints. - Past Family History Mother Family Medical History: Chest Pain / Angina, Diabetes Mellitus, Hypertension, Myocardial Infarction (AR) Additional Family Medical History / Comment(s): Mother of AR at age 84 yrs. Father Family Medical History: Asthma, Congestive Heart Failure (CHF), GERD/Reflux, Hypertension, Myocardial Infarction (AR) Additional Family Medical History / Comment(s): Father had black lung disease. Medications and Allergies Home Medications Medication Instructions Recorded Confirmed Type rOPINIRole HCL [Requip] 2 mg PO HS 10/08/14 05/18/18 History Albuterol Sulfate [Proair Hfa] 2 puff INHALATION RT-Q6H PRN 03/04/17 05/18/18 History Clopidogrel [Plavix] 75 mg PO DAILY #30 tab 03/07/17 05/18/18 Rx Nitroglycerin Sl Tabs [Nitrostat] 0.4 mg SUBLINGUAL Q5M PRN #25 tab 03/07/1707/28 Rx Aclidinium [place] [Tudorza 1 puff PO RT-BID 03/16/18 05/18/18 History Pressair] Albuterol Nebulized [Ventolin 2.5 mg INHALATION RT-Q6H PRN 03/16/18 05/18/18 History Nebulized] Budesonide-Formot 160-4.5 Mcg 2 puff INHALATION RT-BID 03/16/18 05/18/18 History [Symbicort 160-4.5 Mcg Inhaler] Aspirin 81 mg PO DAILY chew 03/22/18 05/18/18 Rx Atorvastatin [Lipitor] 80 mg PO HS #30 tab 03/22/18 05/18/18 Rx Furosemide [Lasix] 40 mg PO DAILY #30 tab 03/22/18 05/18/18 Rx Ipratropium-Albuterol Nebulize 3 ml INHALATION TID #90 ampul.neb 03/22/18 Rx [Duoneb 0.5 mg-3 mg/3 ml Soln] Levofloxacin [Levaquin] 750 mg PO DAILY #5 tab 03/22/18 05/18/18 Rx Metoprolol Tartrate [Lopressor] 50 mg PO BID #60 tab 03/22/18 05/18/18 Rx Nicotine 21Mg/24Hr Patch [Habitrol] 1 patch TRANSDERM DAILY #30 patch 03/22/18 05/18/18 Rx Sacubitril/Valsartan [Entresto 24 1 each PO BID #60 tablet 03/22/18 05/18/18 Rx mg-26 mg Tablet] Allergies Allergy/AdvReac Type Severity Reaction Status Date / Time No Known Allergies Allergy Verified 05/18/18 06:41 Physical Exam Vitals: Vital Signs Temp Pulse Resp BP Pulse Ox 05/18/18 12:00 82 20 96/58 94 L 05/18/18 11:56 84 05/18/18 11:46 82 05/18/18 11:00 83 20 99/69 94 L 05/18/18 10:00 61 19 98/58 95 05/18/18 09:10 57 L 13 86/59 95 05/18/18 09:00 70 21 101/67 98 05/18/18 08:52 19 05/18/18 08:50 63 9 L 101/67 99 05/18/18 08:40 69 18 101/67 97 05/18/18 08:30 82 18 101/67 94 L 05/18/18 08:20 72 21 93/60 92 L 05/18/18 08:10 67 22 92/70 91 L 05/18/18 08:00 74 22 92/70 91 L 05/18/18 07:50 80 21 92/70 92 L 05/18/18 07:43 72 05/18/18 07:40 80 20 92/70 97 05/18/18 07:31 88 05/18/18 07:30 69 18 92/70 96 05/18/18 07:20 117 H 56 H 92/70 97 05/18/18 07:16 110 H 24 05/18/18 06:44 98 F 100 20 101/64 97 05/18/18 06:24 96 20 98/62 97 05/18/18 06:15 98.1 F 107 H 20 109/70 97 05/18/18 06:00 99 20 106/66 97 05/18/18 05:54 113 H 24 105/65 96 05/18/18 05:45 105 H 05/18/18 05:42 109 H 24 100/60 96 05/18/18 05:33 118 H 24 108/60 95 05/18/18 05:23 116 H 24 104/63 95 05/18/18 05:12 124 H 24 120/69 96 05/18/18 05:03 130 H 24 122/68 96 05/18/18 05:02 131 H 05/18/18 04:58 136 H 20 131/83 96 05/18/18 04:52 97 F L 139 H 20 149/76 98 05/18/18 04:47 146 H 05/18/18 04:30 96.8 F L 146 H 32 H 237/97 96 05/18/18 04:29 30 H Intake and Output 05/17/18 05/18/18 05/18/18 22:59 06:59 14:59 Intake Total 6.1 500 Balance 6.1 500 Intake: IV 500 Sodium Chloride 0.9% 1, 500 000 ml @ 100 mls/hr IV . Q10H [facility] Rx#:[id number] Intake, IV Titration 6.1 Amount Nitroglycerin-D5w Pmx 50 6.1 mg In Dextrose/Water 1 250ml.bag @ 20 MCG/MIN 6 mls/hr IV .Q24H [facility] Rx#: [id number] Other: Weight 81.647 kg 80.7 kg Patient is laying down comfortably in bed. Mild degree of respiratory distress and the patient is currently utilizing a full face BiPAP mask and is attached to a BiPAP machine for respiratory support. Head exam was generally normal. There was no scleral icterus or corneal arcus. Mucous membranes were moist. Examination neck shows positive JVDs and there is no goiter or neck masses. No lymphadenopathy. No thrush. Lungs sounds are diminished bilaterally along with some scattered rhonchi and scattered expiratory wheezes without the lung kinney. The patient also has crackles at lung bases bilaterally Cardiac exam revealed the PMI to be normally situated and sized. The rhythm was regular and no extrasystoles were noted during several minutes of auscultation. The first and second heart sounds were normal and physiologic splitting of the second heart sound was noted. There were no murmurs, rubs, clicks, or gallops. Abdominal exam revealed normal bowel sounds. The abdomen was soft, non-tender, and without masses, organomegaly, or appreciable enlargement of the abdominal aorta. Examination of the extremities revealed easily palpable radial, femoral and pedal pulses. There was no cyanosis, clubbing or edema. Examination of the skin revealed no evidence of significant rashes, suspicious appearing nevi or other concerning lesions. Neurologically the patient is awake and alert and following commands Results - Laboratory Findings CBC and BMP: 05/18/18 04:40 05/18/18 04:40 PT/INR, D-dimer PT 10.5 sec (9.0-12.0) 05/18/18 04:40 INR 1.1 (<1.2) 05/18/18 04:40 Abnormal lab findings: Abnormal Labs 05/18/18 05/18/18 05/18/18 04:40 04:40 04:40 WBC 13.2 H MCV 100.1 H Potassium 5.5 H Glucose 189 H POC Glucose (mg/dL) CK-MB (CK-2) 4.0 H* 05/18/18 04:46 WBC MCV Potassium Glucose POC Glucose (mg/dL) 278 H CK-MB (CK-2) - Diagnostic Findings Chest x-ray: image reviewed Assessment and Plan Plan: 1 acute hypoxic respiratory failure, essentially secondary to CHF and pulmonary edema. The patient was admitted with hypertensive emergency and acute pulmonary edema with elevated proBNP level. COPD is also Contributing to his acute hypoxic respiratory failure. Currently BiPAP dependent. 2 COPD, chronic 3 acute hypertensive emergency, currently on no nitroglycerin which was discontinued earlier this morning. 4 congestion heart failure with an ejection fraction of 20% to 25% 5 hypotension, recovered with fluid resuscitation and pressors. The hypotension recovered and the patient's blood pressure is normalized for now 6 coronary artery disease with previous coronary intervention and stenting, please refer to the catheterization from 2017 7 previous history of nonsustained V. tach 8 previous history of DVT 9 peripheral vascular disease with a previous fem-fem bypass surgery 10 medication noncompliance and the patient has not been taking any other medication that was given to him since his discharge from the hospital 11 hyperlipidemia 12 previous history of hypertension 13 restless leg syndrome 14 sciatica 15 acute ventilator-dependent respiratory failure approximately 6 weeks ago, recovered and the patient was extubated without any major difficulties. Plan Monitor the blood pressure while the patient off the nitroglycerin drip. If he is able to tolerate start the patient IV Lasix 40 g every 12 hours and start the patient also metoprolol 12.5 mg by mouth twice a day. Continue aspirin. Continue Plavix. Lovenox for DVT prophylaxis. DuoNeb is about treatments around the clock. BiPAP for another few hours and the patient can be taken off the BiPAP at a later stage once his overall pulmonary status is more stable. Repeat chest x-ray in the morning. Monitor hemodynamics. Monitor fluid balance. Cardiology consultation. We'll continue to follow. Time with Patient: Greater than 30
[2018-05-18] MEDS: FUROSEMIDE 10 MG/ML 4 ML VIAL IV SCH ×2 (16:22→20:19)
[2018-05-18] MEDS: FORMOTEROL FUMARATE 20 MCG/2 ML NEBU INHALATION SCH (19:22)
[2018-05-18] MEDS: BUDESONIDE 1 MG/2 ML NEBU INHALATION SCH (19:22)
[2018-05-18] MEDS: ATORVASTATIN 80 MG TAB PO SCH (20:20)
[2018-05-19] MEDS: methylPREDNISolone SOD SUCCI 40 MG/ML 1 ML VIAL IV SCH ×3 (00:29→16:09)
--- NOTE | 2018-05-19 00:54 | HP ---
HISTORY AND PHYSICAL DATE OF ADMISSION: May 18, 2018 DATE OF SERVICE: May 18, 2018 PRESENTING COMPLAINT: Short of breath. HISTORY OF PRESENTING COMPLAINT: This is a 67-year-old patient of Dr. Oden with extensive medical history, chronic stable medical conditions include peripheral artery disease, hyperlipidemia, restless legs syndrome, GERD. The patient presented after becoming really short of breath at home, some wheezing, cough, sputum production. The patient has continued to smoke. The patient was in acute respiratory distress. He presented was rather tachycardic up to 130s, was put on a BiPAP, admitted to the ICU. The patient was felt to be in acute congestive heart failure. Has a known ejection fraction at 20-25%. COPD was also felt to be contributing to the same. With the Lasix and bronchodilators, the patient is feeling better. Did get some response. Still on nasal cannula 5 L down from the BiPAP. REVIEW OF SYSTEMS: CONSTITUTIONAL: Tired. HEENT as above. RESPIRATORY as above. CARDIOVASCULAR as above. No edema. GENITOURINARY none. MUSCULOSKELETAL: None. DERMATOLOGIC, HEMATOLOGIC and LYMPHATIC: None. PSYCHIATRY: A bit of anxiety. Neurological none. PAST MEDICAL HISTORY: COPD, CHF, EF 20-25%, peripheral artery disease, hyperlipidemia, hypertension, restless legs syndrome, chronic rotator cuff injury and GERD and coronary artery disease. Additional past medical history of DVT. PAST SURGICAL HISTORY: Appendectomy, cardiac cath with stent, in 2014, had right fem-fem bypass, cardiac stent in 2013, SOCIAL HISTORY: Lives alone used. He was driven by his family. The patient is doing anywhere from half to a pack a day, does marijuana 3-4 times a week. He has been smoking since 1964. FAMILY HISTORY: Diabetes, hypertension, [place]. HOME MEDICATIONS: 1. Requip 2 mg q.h.s. 2. Entresto 24/26 one tablet b.i.d. 3. Nitrostat 0.4 sublingual q.5 p.r.n. 4. Nicotine patch. 5. Lopressor 50 mg b.i.d. 6. Levaquin 750 mg p.o. b.i.d. 7. DuoNeb t.i.d. 8. Lasix 40 mg daily. 9. Plavix 75 mg p.o. daily. 10.Symbicort 160/4.5, 2 puffs b.i.d. 11.Lipitor 80 mg q.h.s. 12.Aspirin 81 mg p.o. daily. 13.ProAir 2 puffs q.6h p.r.n. 14.Ventolin 2.5 q.6h p.r.n. 15.Tudorza 1 puff b.i.d. ALLERGIES: None. PHYSICAL EXAMINATION: VITAL SIGNS: Vital signs on presentation, temperature 96.8, pulse 146, respiration 32, blood pressure 237/97, pulse ox 96% on non-rebreather. GENERAL APPEARANCE: Somewhat dishevelled, lying in bed, short of breath. Tired. EYES: Pupils equal. Conjunctivae normal. HEENT: External appearance of nose and ears normal. Oral cavity normal. NECK: JVD unable to assess. Mass not palpable. RESPIRATORY: Effort increased. LUNGS: Diminished breath sounds. Prolonged expiration. Some crackles. CARDIOVASCULAR: First and second sounds normal. No edema. ABDOMEN: Soft, nontender. Liver and spleen not palpable. LYMPHATICS: No lymph nodes palpable in the neck and axilla. PSYCHIATRY: Alert and oriented x3. Mood and affect normal. NEUROLOGICAL: Pupils equal. Cranial nerves grossly intact. Power and sensation grossly intact. INVESTIGATION: Chest x-ray shows pulmonary edema. EKG sinus tachycardia. White count 30.2, potassium 5.5, BUN and creatinine is normal. ProBNP 3580. ASSESSMENT: 1. Acute congestive heart failure exacerbation from systolic dysfunction EF 20 to 25% underlying coronary artery disease. 2. Coronary artery disease with stent in 2013. 3. Acute chronic obstructive pulmonary disease exacerbation in a current smoker. 4. Chronic nicotine dependence, patient is a cigarette smoker. 5. Peripheral artery disease previous fem-fem bypass. 6. Acute hypoxic and hypercapnic respiratory failure, present on admission. Underlying from chronic obstructive pulmonary disease and congestive heart failure exacerbation. 7. Hyperlipidemia. 8. Essential hypertension, uncontrolled/malignant with malignant present on admission. 9. Restless legs syndrome. 10.Chronic rotator cuff injury. 11.Gastroesophageal reflux disease. PLAN: The patient initially was put on DuoNeb, then switched to a nasal cannula. Is on IV Solu-Medrol. Home medications are resumed. The patient is also on Lopressor. Consultation is done to Dr. Menjivar from Pulmonary and Dr. Jacob from Cardiology. Smoking cessation counseling was done with the patient on the importance of stopping smoking. Nicotine patch has been given. The patient states he is trying to cut back. More than 3 minutes was spent on this aspect of the case. Copy to Dr. Oden. MMAGNESL / IJN: [id number] /
[2018-05-19] MEDS ORDERED: LORazepam 0.5 MG TAB PO STA (02:25)
[2018-05-19] MEDS ORDERED: IPRATROPIUM-ALBUTEROL 3 ML NEB INHALATION PRN (03:00)
[2018-05-19] MEDS: IPRATROPIUM-ALBUTEROL 3 ML NEB INHALATION SCH ×5 (03:01→19:34)
[2018-05-19 04:06] LABS: Basophils % (A) 0 %; Eosinophils # (A) 0.1 k/uL (0-0.7); Eosinophils % (A) 1 %; HCT 47.2 % (39.0-53.0); Lymphocytes # (A) 0.8 k/uL (1.0-4.8); Lymphocytes % (A) 7 %; MCH 31.6 pg (25.0-35.0); MCHC 31.8 g/dL (31.0-37.0); MCV 99.3 fL (80.0-100.0); Mean Platelet Volume 7.5; Monocytes # (A) 0.3 k/uL (0-1.0); Monocytes % (A) 2 %; Neutrophils # (A) 11.4 k/uL (1.3-7.7); Neutrophils % (A) 91 %; Platelet Count 198 k/uL (150-450); RBC 4.75 m/uL (4.30-5.90); RDW 13.7 % (11.5-15.5); WBC 12.6 k/uL (3.8-10.6)
[2018-05-19] MEDS ORDERED: FUROSEMIDE 10 MG/ML 4 ML VIAL IV STA (04:09)
[2018-05-19] MEDS ORDERED: LORazepam 2 MG/ML INJ IV PRN (04:09)
[2018-05-19] MEDS: MORPHINE SULFATE 2 MG/ML SYRINGE IVP PRN ×2 (04:19→09:48)
[2018-05-19 04:23] LABS: Anion Gap 13 mmol/L; Blood Urea Nitrogen 17 mg/dL (9-20); Calcium 9.3 mg/dL (8.4-10.2); Carbon Dioxide 25 mmol/L (22-30); Chloride 99 mmol/L (98-107); Glucose 143 mg/dL (74-99); Magnesium 1.9 mg/dL (1.6-2.3); Potassium 4.3 mmol/L (3.5-5.1); Sodium 137 mmol/L (137-145)
--- NOTE | 2018-05-19 06:48 | XR ---
EXAMINATION TYPE: XR chest 1V portable DATE OF EXAM: 05/19/2018 CLINICAL HISTORY: Difficulty breathing and COPD progress study. TECHNIQUE: 2 AP portable upright views of the chest are obtained. COMPARISON: Chest x-ray from one day earlier and older studies. CTA chest March 16, 2018. FINDINGS: Entire right lung base is not included making evaluation slightly suboptimal. There is nikos kground chronic emphysematous change with increased central and basilar opacity bilaterally redemonst rated. Slightly more prominent opacity retrocardiac region with silhouetting of left hemidiaphragm is noted. No large pleural effusion or pneumothorax is seen bilaterally. Osseous structures are intact. Cardiac silhouette size is stable and upper limits of normal. IMPRESSION: Favor CHF exacerbation or fluid overload state with persistent alveolar and interstitial edema on background of advanced emphysematous change, correlate clinically. No significant change fro m chest x-ray one day earlier.
[2018-05-19] MEDS ORDERED: Magnesium Replacement Protocol 1 EACH MISC MISCELLANE PRN (07:12)
[2018-05-19] MEDS: BUDESONIDE 1 MG/2 ML NEBU INHALATION SCH ×2 (07:52→19:34)
[2018-05-19] MEDS: FORMOTEROL FUMARATE 20 MCG/2 ML NEBU INHALATION SCH ×2 (07:52→19:34)
--- NOTE | 2018-05-19 07:52 | P.PN ---
Subjective Progress Note Date: 05/19/18 Principal diagnosis: Shortness of breath This is another admission for this 67-year-old gentleman with an extensive cardiac history consistent off coronary artery disease and prior stenting of the left circumflex and RCA in 2013, severe ischemic cardiomyopathy with a recent echocardiogram in March 2018 showing an EF of 20-25%, chronic respiratory failure secondary to COPD, hypertension, and dyslipidemia. The patient just was discharged from the hospital in March 2018 after he was admitted with a pneumonia/ COPD exacerbation. He was in his usual state of health until yesterday when suddenly he developed shortness of breath. He did not have any symptoms of chest pain or chest discomfort. No cough or fever or chills. No dizziness or lightheadedness. No syncope. No feeling of heart racing or fluttering. Ambulance was called and the patient was found to be in acute respiratory distress and he was about to be intubated but in the hospital he was placed on BiPAP with significant improvement in his respiratory distress and shortness of breath. He was found to be also hypertensive with a systolic blood pressure about 230 mmHg. Please note that the patient was not taking all his cardiac medications according to him because he was running output. Currently the patient is mild respiratory distress with he's on BiPAP. He is satting good. The EKG showed sinus tachycardia when he presented to the hospital but currently he has been maintaining a heart rate around 90 bpm. the first set of troponin came in to be within normal limits but the CK-MB is slightly elevated. We'll follow-up with the 2 more sets of serial cardiac enzymes. The chest x- ray showed findings consistent with pulmonary edema. The BNP came in to be also elevated and around 3000. The patient was placed on nitro drip when he presented to the hospital and currently his systolic blood pressure is in the 90s. I am going to DC the nitro drip at this point. On follow-up with the patient today, he is feeling better in term shortness of breath. He still have bilateral expiratory wheezing. He is hemodynamically stable and as a matter of fact he is slightly hypertensive and slightly tachycardic. He is on Lasix IV which we will continue. I am going to increase the dose of metoprolol to 25 mg by mouth twice a day, and lisinopril as well as add Aldactone to her current medical regimen in view of the severe cardiomyopathy. Objective - Vital Signs Vital signs: Vital Signs Temp 98.9 F 05/19/18 00:00 Pulse 94 05/19/18 07:00 Resp 22 05/19/18 07:00 BP 137/83 05/19/18 07:00 Pulse Ox 96 05/19/18 07:00 Intake & Output 05/18/18 05/19/18 05/19/18 18:59 06:59 18:59 Intake Total 1910 400 Output Total 1200 4250 60 Balance 710 -3850 -60 Weight 80.7 kg 80.7 kg Intake: IV 1200 400 Sodium Chloride 0.9% 1, 1200 400 000 ml @ 100 mls/hr IV . Q10H [facility] Rx#:[id number] Oral 710 Output: Urine 1200 4250 60 Other: Voiding Method Indwelling Catheter - Constitutional General appearance: Present: no acute distress - Respiratory Respiratory: bilateral: wheezing - Cardiovascular Rhythm: regular Heart sounds: normal: S1, S2 - Labs CBC & Chem 7: 05/19/18 03:46 05/19/18 03:46 Labs: Abnormal Lab Results - Last 24 Hours (Table) 05/19/18 05/19/18 05/19/18 Range/Units 03:46 03:46 04:31 WBC 12.6 H (3.8-10.6) k/uL Neutrophils # 11.4 H (1.3-7.7) k/uL Lymphocytes # 0.8 L (1.0-4.8) k/uL D-Dimer 3.86 H (<0.60) mg/L FEU Glucose 143 H (74-99) mg/dL Troponin I (0.000-0.034) ng/mL 05/19/18 Range/Units 04:31 WBC (3.8-10.6) k/uL Neutrophils # (1.3-7.7) k/uL Lymphocytes # (1.0-4.8) k/uL D-Dimer (<0.60) mg/L FEU Glucose (74-99) mg/dL Troponin I 0.179 H* (0.000-0.034) ng/mL Assessment and Plan Assessment: Assessment #1 acute hypoxic respiratory failure #2 flash pulmonary edema. Likely to be precipitated by uncontrolled hypertension #3 hypertension emergency #4 known CAD and prior stenting of the RCA and LCx in 2013 #5 severe ischemic cardiomyopathy with an EF of 20-25% #6 advanced chronic obstructive pulmonary disease #7 noncompliance with medications as well as diet #8 multiple comorbid conditions Plan #1 continue the current dose of Lasix IV #2 increase the dose of metoprolol for better blood pressure and heart rate control #3 add lisinopril and Aldactone to maximize medical treatment for cardiomyopathy #4 the patient does need to have an AICD down the line #5 follow-up with the patient. Thank you for allowing us participate in his care and we'll continue following up with the patient.
[2018-05-19] MEDS: ENOXAPARIN 40 MG/0.4 ML SYRINGE SQ SCH (08:20)
[2018-05-19] MEDS: NICOTINE 21MG/24HR PATCH TRANSDERM SCH ×2 (08:20→08:50)
[2018-05-19] MEDS: CLOPIDOGREL 75 MG TAB PO SCH (08:21)
[2018-05-19] MEDS: FUROSEMIDE 10 MG/ML 4 ML VIAL IV SCH ×2 (08:21→20:05)
[2018-05-19] MEDS: ASPIRIN 81 MG PO SCH (08:21)
[2018-05-19] MEDS: MAGNESIUM SULFATE-D5W PMX 1 GM in DEXTROSE/WATER 1 100ML.BAG IVPB SCH ×2 (08:28→10:11)
[2018-05-19] MEDS: METOPROLOL TARTRATE 25 MG TAB PO SCH ×2 (08:33→22:36)
[2018-05-19] MEDS: SPIRONOLACTONE 25 MG TAB PO SCH (08:33)
[2018-05-19] MEDS: LISINOPRIL 2.5 MG TAB PO SCH (08:34)
--- NOTE | 2018-05-19 10:59 | P.PN ---
Subjective Progress Note Date: 05/19/18 67-year-old male patient, got admitted to the ICU yesterday because of worsening shortness of breath and he was found to be in acute CHF and pulmonary edema. The patient also came in with hypertensive emergency and his blood pressure was poorly controlled with a systolic blood pressure as high as 230, And overnight the patient was placed on nitroglycerin drip for blood pressure control. This morning it is off the nitroglycerin drip. His chest x-ray is consistent with CHF and pulmonary edema and the patient is currently on BiPAP at a pressure of 14/6 cm of water and FiO2 of 40%. No chest pain. No angina. The patient denies taking any of the maintenance medication to was supposed to get following his discharge from the hospital approximately 3 weeks ago. Note that he is post respiratory failure with intubation mechanical ventilation. The patient has a proBNP level of 3580. First set of troponins of 0.019. Rest of the blood work and electrodes are all within normal limits and the potassium level is slightly elevated at 5.5. No fever. No chills. No hemoptysis. No pleurisy. No altered mentation and the patient is able to answer all questions effectively. On 05/19/2008 and I'm seeing this patient for a follow-up. The patient's overnight had some worsening shortness of breath. He was noted to be in acute pulmonary edema at around 3 AM this morning. He was very short of breath and he was given a combination of morphine and IV Lasix. Immediately after the IV Lasix administration, the patient diuresed and he continues to be in a negative fluid balance. The chest x-ray from 6 AM this morning still showing acute pulmonary edema. The neck fluid balance has been -3.1 L over the past 24 hours and the patient has been in a negative fluid balance of 540 mL over the past 8 hours. Denies having any chest pain. No altered mentation. Chronic congested cough without any significant sputum production. No major edema in lower extremities bilaterally. No reported fever or chills. Remains on IV Lasix 40 mg every 12 hours. The patient was also started on Aldactone 25 mg by mouth daily. He is on IV submental 40 mg every 8 hours along with DuoNeb nebulized treatments regarding his COPD. He remains on metoprolol dose was increased up to 25 g by mouth twice a day. Objective - Vital Signs Vital signs: Vital Signs Temp 98.1 F 05/19/18 08:00 Pulse 80 05/19/18 10:00 Resp 23 05/19/18 10:00 BP 122/69 05/19/18 10:00 Pulse Ox 93 L 05/19/18 10:00 Intake & Output 05/18/18 05/19/18 05/19/18 18:59 06:59 18:59 Intake Total 1910 400 380 Output Total 1200 4250 920 Balance 710 -3850 -540 Weight 80.7 kg 80.7 kg Intake: IV 1200 400 Sodium Chloride 0.9% 1, 1200 400 000 ml @ 100 mls/hr IV . Q10H [facility] Rx#:[id number] Intake, IV Titration 100 Amount Magnesium Sulfate-D5w Pmx 100 1 gm In Dextrose/Water 1 100ml.bag @ 100 mls/hr IVPB Q1H [facility] Rx#: [id number] Oral 710 280 Output: Urine 1200 4250 920 Other: Voiding Method Indwelling Catheter - Exam Patient is laying down comfortably in bed. Mild degree of respiratory distress and the patient is currently utilizing a full face BiPAP mask and is attached to a BiPAP machine for respiratory support. Head exam was generally normal. There was no scleral icterus or corneal arcus. Mucous membranes were moist. Examination neck shows positive JVDs and there is no goiter or neck masses. No lymphadenopathy. No thrush. Lungs sounds are diminished bilaterally along with some scattered rhonchi and scattered expiratory wheezes without the lung kinney. The patient also has crackles at lung bases bilaterally Cardiac exam revealed the PMI to be normally situated and sized. The rhythm was regular and no extrasystoles were noted during several minutes of auscultation. The first and second heart sounds were normal and physiologic splitting of the second heart sound was noted. There were no murmurs, rubs, clicks, or gallops. Abdominal exam revealed normal bowel sounds. The abdomen was soft, non-tender, and without masses, organomegaly, or appreciable enlargement of the abdominal aorta. Examination of the extremities revealed easily palpable radial, femoral and pedal pulses. There was no cyanosis, clubbing or edema. Examination of the skin revealed no evidence of significant rashes, suspicious appearing nevi or other concerning lesions. Neurologically the patient is awake and alert and following commands - Labs CBC & Chem 7: 07/10/18 03:46 05/19/18 03:46 Labs: Abnormal Lab Results - Last 24 Hours (Table) 05/19/18 05/19/18 05/19/18 Range/Units 03:46 03:46 04:31 WBC 12.6 H (3.8-10.6) k/uL Neutrophils # 11.4 H (1.3-7.7) k/uL Lymphocytes # 0.8 L (1.0-4.8) k/uL D-Dimer 3.86 H (<0.60) mg/L FEU Glucose 143 H (74-99) mg/dL Troponin I (0.000-0.034) ng/mL 05/19/18 Range/Units 04:31 WBC (3.8-10.6) k/uL Neutrophils # (1.3-7.7) k/uL Lymphocytes # (1.0-4.8) k/uL D-Dimer (<0.60) mg/L FEU Glucose (74-99) mg/dL Troponin I 0.179 H* (0.000-0.034) ng/mL Assessment and Plan Plan: 1 acute hypoxic respiratory failure, essentially secondary to CHF and pulmonary edema. Patient currently on 8 L of oxygen by nasal cannula. After some initial improvement the patient was taken off the BiPAP however overnight the patient wasn't in acute pulmonary edema again requiring further diuretic use. He remains negative fluid balance and the patient responded to the treatment nicely. 2 COPD, chronic 3 acute hypertensive emergency, currently on no nitroglycerin which was discontinued earlier this morning. The patient's blood pressure under good control for now 4 congestion heart failure with an ejection fraction of 20% to 25% 5 hypotension, recovered with fluid resuscitation and pressors. The hypotension recovered and the patient's blood pressure is normalized for now 6 coronary artery disease with previous coronary intervention and stenting, please refer to the catheterization from 2017 7 previous history of nonsustained V. tach 8 previous history of DVT 9 peripheral vascular disease with a previous fem-fem bypass surgery 10 medication noncompliance and the patient has not been taking any other medication that was given to him since his discharge from the hospital 11 hyperlipidemia 12 previous history of hypertension 13 restless leg syndrome 14 sciatica 15 acute ventilator-dependent respiratory failure approximately 6 weeks ago, recovered and the patient was extubated without any major difficulties. Plan Continue IV Lasix. Aldactone 25 mg by mouth daily. Metoprolol 25 mg by mouth twice a day. Aspirin and Plavix. Monitor fluid balance. Monitor renal function. Repeat chest x-ray in the morning. Wean down the FiO2 as tolerated as the patient is currently on 8 L of oxygen by nasal cannula. Will discontinue BiPAP for now as the patient is doing better. The patient ICU for another 24 hours. Continue DuoNeb's. Continue IV Solu Medrol and taper the patient to a prednisone burst taper as of tomorrow.
[2018-05-19] MEDS: ATORVASTATIN 80 MG TAB PO SCH (20:05)
[2018-05-20] MEDS ORDERED: methylPREDNISolone SOD SUCCI 40 MG/ML 1 ML VIAL ONE (00:45)
[2018-05-20 05:09] LABS: Basophils % (A) 0 %; Eosinophils # (A) 0.2 k/uL (0-0.7); Eosinophils % (A) 1 %; HCT 45.2 % (39.0-53.0); HGB 14.8 gm/dL (13.0-17.5); Lymphocytes # (A) 0.8 k/uL (1.0-4.8); Lymphocytes % (A) 5 %; MCH 31.7 pg (25.0-35.0); MCHC 32.6 g/dL (31.0-37.0); MCV 97.2 fL (80.0-100.0); Mean Platelet Volume 7.8; Monocytes # (A) 0.6 k/uL (0-1.0); Monocytes % (A) 4 %; Neutrophils # (A) 15.5 k/uL (1.3-7.7); Neutrophils % (A) 90 %; Platelet Count 180 k/uL (150-450); RBC 4.65 m/uL (4.30-5.90); RDW 13.5 % (11.5-15.5); WBC 17.2 k/uL (3.8-10.6)
[2018-05-20] MEDS: methylPREDNISolone SOD SUCCI 40 MG/ML 1 ML VIAL IV SCH ×2 (05:29→08:35)
[2018-05-20 05:33] LABS: Anion Gap 11 mmol/L; Blood Urea Nitrogen 28 mg/dL (9-20); Carbon Dioxide 31 mmol/L (22-30); Chloride 95 mmol/L (98-107); Glucose 127 mg/dL (74-99); Potassium 4.1 mmol/L (3.5-5.1); Sodium 137 mmol/L (137-145)
[2018-05-20 05:34] LABS: Calcium 9.1 mg/dL (8.4-10.2); Magnesium 2.3 mg/dL (1.6-2.3)
[2018-05-20] MEDS: FORMOTEROL FUMARATE 20 MCG/2 ML NEBU INHALATION SCH ×3 (07:15→21:00)
[2018-05-20] MEDS: BUDESONIDE 1 MG/2 ML NEBU INHALATION SCH ×2 (07:15→21:00)
[2018-05-20] MEDS: IPRATROPIUM-ALBUTEROL 3 ML NEB INHALATION SCH ×4 (07:15→21:00)
--- NOTE | 2018-05-20 07:39 | XR ---
EXAMINATION TYPE: XR chest 1V portable DATE OF EXAM: 05/20/2018 Comparison: 05/19/2018 Clinical History: 67-year-old male COPD and shortness of breath Findings: Heart is borderline enlarged. Diffuse interstitial opacities particularly in the mid and lower lungs. There is a trace left effusion also noted. Densities are relatively similar to prior exam. Relative upper lung lucencies. Impression: Correlate for CHF with similar pulmonary vascular congestion/interstitial edema on a background of CO PD. Trace left effusion.
[2018-05-20] MEDS: ASPIRIN 81 MG PO SCH (08:36)
[2018-05-20] MEDS: FUROSEMIDE 10 MG/ML 4 ML VIAL IV SCH ×2 (08:36→15:28)
[2018-05-20] MEDS: METOPROLOL TARTRATE 25 MG TAB PO SCH ×2 (08:36→20:35)
[2018-05-20] MEDS: ENOXAPARIN 40 MG/0.4 ML SYRINGE SQ SCH (08:37)
[2018-05-20] MEDS: CLOPIDOGREL 75 MG TAB PO SCH (08:37)
[2018-05-20] MEDS: NICOTINE 21MG/24HR PATCH TRANSDERM SCH (08:38)
[2018-05-20] MEDS: LISINOPRIL 2.5 MG TAB PO SCH (08:38)
[2018-05-20] MEDS: SPIRONOLACTONE 25 MG TAB PO SCH (08:50)
[2018-05-20] MEDS ORDERED: SACUBITRIL/VALSARTAN 24 MG-26 MG TABLET PO SCH (11:00)
[2018-05-20] MEDS: predniSONE 20 MG TAB PO SCH (12:14)
--- NOTE | 2018-05-20 12:23 | P.PN ---
Subjective Progress Note Date: 05/20/18 Principal diagnosis: Shortness of breath This is another admission for this 67-year-old gentleman with an extensive cardiac history consistent off coronary artery disease and prior stenting of the left circumflex and RCA in 2013, severe ischemic cardiomyopathy with a recent echocardiogram in March 2018 showing an EF of 20-25%, chronic respiratory failure secondary to COPD, hypertension, and dyslipidemia. The patient just was discharged from the hospital in March 2018 after he was admitted with a pneumonia/ COPD exacerbation. He was in his usual state of health until yesterday when suddenly he developed shortness of breath. He did not have any symptoms of chest pain or chest discomfort. No cough or fever or chills. No dizziness or lightheadedness. No syncope. No feeling of heart racing or fluttering. Ambulance was called and the patient was found to be in acute respiratory distress and he was about to be intubated but in the hospital he was placed on BiPAP with significant improvement in his respiratory distress and shortness of breath. He was found to be also hypertensive with a systolic blood pressure about 230 mmHg. Please note that the patient was not taking all his cardiac medications according to him because he was running output. Currently the patient is mild respiratory distress with he's on BiPAP. He is satting good. The EKG showed sinus tachycardia when he presented to the hospital but currently he has been maintaining a heart rate around 90 bpm. the first set of troponin came in to be within normal limits but the CK-MB is slightly elevated. We'll follow-up with the 2 more sets of serial cardiac enzymes. The chest x- ray showed findings consistent with pulmonary edema. The BNP came in to be also elevated and around 3000. The patient was placed on nitro drip when he presented to the hospital and currently his systolic blood pressure is in the 90s. I am going to DC the nitro drip at this point. On follow-up with the patient today, he is feeling better in term shortness of breath. He still have bilateral expiratory wheezing. The dose of Lasix was increased to 40 mg IV 3 times a day because the patient has been experiencing episodes of shortness of breath during the night. Otherwise the patient is on maximize medical treatment including dual antiplatelet therapy, metoprolol, lisinopril, and Aldactone. Objective - Vital Signs Vital signs: Vital Signs Temp 98.1 F 05/20/18 12:00 Pulse 69 05/20/18 12:00 Resp 16 05/20/18 12:00 BP 92/60 05/20/18 12:00 Pulse Ox 93 L 05/20/18 12:00 Intake & Output 05/19/18 05/20/18 05/20/18 18:59 06:59 18:59 Intake Total 2800 520 720 Output Total 1960 2430 1485 Balance 840 -1910 -765 Weight 80.4 kg Intake: IV 200 Magnesium Sulfate-D5w Pmx 200 1 gm In Dextrose/Water 1 100ml.bag @ 100 mls/hr IVPB Q1H [facility] Rx#: [id number] Oral 2600 520 720 Output: Urine 1959 2430 1485 Other: Voiding Method Indwelling Catheter Indwelling Catheter - Constitutional General appearance: Present: no acute distress - Respiratory Respiratory: bilateral: CTA - Cardiovascular Rhythm: regular Heart sounds: normal: S1, S2 - Labs CBC & Chem 7: 05/20/18 04:47 05/20/18 04:47 Labs: Abnormal Lab Results - Last 24 Hours (Table) 05/20/18 05/20/18 Range/Units 04:47 04:47 WBC 17.2 H (3.8-10.6) k/uL Neutrophils # 15.5 H (1.3-7.7) k/uL Lymphocytes # 0.8 L (1.0-4.8) k/uL Chloride 95 L (98-107) mmol/L Carbon Dioxide 31 H (22-30) mmol/L BUN 28 H (9-20) mg/dL Glucose 127 H (74-99) mg/dL Assessment and Plan Assessment: Assessment #1 acute hypoxic respiratory failure #2 flash pulmonary edema. Likely to be precipitated by uncontrolled hypertension #3 hypertension emergency #4 known CAD and prior stenting of the RCA and LCx in 2013 #5 severe ischemic cardiomyopathy with an EF of 20-25% #6 advanced chronic obstructive pulmonary disease #7 noncompliance with medications as well as diet #8 multiple comorbid conditions Plan #1 the dose of Lasix was increased to 40 mg IV 3 times a day #2 continue the current medical regimen including dual antiplatelet along with a statin and beta francesco and NOELLE inhibitor and Aldactone Thank you for allowing us participate in his care and we'll continue following up with the patient.
--- NOTE | 2018-05-20 13:11 | PN ---
PROGRESS NOTE DATE OF SERVICE: 05/19/2018. PRESENTING COMPLAINT: Short of breath. INTERVAL HISTORY: Patient admitted with CHF exacerbation and COPD exacerbation. Seen by me yesterday, still in the ICU. The patient had an episode of shortness of breath in the morning, had to be given IV Lasix and breathing treatments. Feeling a bit better. Did tolerate a little bit of diet. REVIEW OF SYSTEMS: Review of systems done for constitutional, cardiovascular, GI, pulmonary; relevant findings as above. CURRENT MEDICATIONS: Current medications include DuoNeb, IV steroids, IV Lasix. PHYSICAL EXAMINATION: On examination, temperature 98, pulse 66, respiration 24, blood pressure 109/72, pulse ox 96% on high-flow oxygen. GENERAL APPEARANCE: Sitting up, tired appearing, short of breath. EYES: Pupils equal. Conjunctivae normal. HENT: External appearance of nose and ears. Oral cavity normal. NECK: JVD unable to assess. Mass not palpable. RESPIRATORY: Effort increased. LUNGS: Decreased breath sounds. Basal crackles. Prolonged expiration. CARDIOVASCULAR: First and second sounds normal. No edema. ABDOMEN: Soft, nontender. Liver and spleen not palpable. PSYCHIATRY: Sitting up, awake, answers questions though tired appearing. INVESTIGATIONS: Chest x-ray film reviewed by me shows venous prominence investigations. White count 12.6, hemoglobin 15. Potassium 4.3. ASSESSMENT: 1. Acute congestive heart failure exacerbation, systolic dysfunction, ejection fraction 20% to 25% underlying coronary artery disease, slow to respond. 2. Coronary artery disease with stent in 2013. 3. Acute chronic obstructive pulmonary disease exacerbation in a current smoker, slow to respond. 4. Chronic nicotine dependence. Patient is a cigarette smoker. 5. Peripheral arterial disease, previous fem-fem bypass. 6. Acute hypoxic and hypercapnic respiratory failure, present on admission, slow to respond. Patient is still requiring high-flow oxygen from underlying chronic obstructive pulmonary disease. 7. Hyperlipidemia. 8. Essential hypertension, uncontrolled malignant upon presentation. 9. Restless legs syndrome. 10.Chronic rotator cuff injury. 11.Gastroesophageal reflux disease. PLAN: Continue patient with steroids, nebulized bronchodilator, IV Lasix. Follow with Cardiology and Pulmonary. The patient to remain in the ICU. MMODL / IJN: [id number] /
--- NOTE | 2018-05-20 13:29 | P.PN ---
Subjective Progress Note Date: 05/20/18 67-year-old male patient, got admitted to the ICU yesterday because of worsening shortness of breath and he was found to be in acute CHF and pulmonary edema. The patient also came in with hypertensive emergency and his blood pressure was poorly controlled with a systolic blood pressure as high as 230, And overnight the patient was placed on nitroglycerin drip for blood pressure control. This morning it is off the nitroglycerin drip. His chest x-ray is consistent with CHF and pulmonary edema and the patient is currently on BiPAP at a pressure of 14/6 cm of water and FiO2 of 40%. No chest pain. No angina. The patient denies taking any of the maintenance medication to was supposed to get following his discharge from the hospital approximately 3 weeks ago. Note that he is post respiratory failure with intubation mechanical ventilation. The patient has a proBNP level of 3580. First set of troponins of 0.019. Rest of the blood work and electrodes are all within normal limits and the potassium level is slightly elevated at 5.5. No fever. No chills. No hemoptysis. No pleurisy. No altered mentation and the patient is able to answer all questions effectively. On 05/19/2018 and I'm seeing this patient for a follow-up. The patient's overnight had some worsening shortness of breath. He was noted to be in acute pulmonary edema at around 3 AM this morning. He was very short of breath and he was given a combination of morphine and IV Lasix. Immediately after the IV Lasix administration, the patient diuresed and he continues to be in a negative fluid balance. The chest x-ray from 6 AM this morning still showing acute pulmonary edema. The neck fluid balance has been -3.1 L over the past 24 hours and the patient has been in a negative fluid balance of 540 mL over the past 8 hours. Denies having any chest pain. No altered mentation. Chronic congested cough without any significant sputum production. No major edema in lower extremities bilaterally. No reported fever or chills. Remains on IV Lasix 40 mg every 12 hours. The patient was also started on Aldactone 25 mg by mouth daily. He is on IV submental 40 mg every 8 hours along with DuoNeb nebulized treatments regarding his COPD. He remains on metoprolol dose was increased up to 25 g by mouth twice a day. On 05/20/2018, the patient is being seen for a follow-up. The patient is feeling well. Overnight he became again short of breath and the morning chest x -ray still showing a component of pulmonary edema. He is still diuresing very nicely with a combination of Lasix and Aldactone. The patient is receiving Lasix 40 mg IV push every 12 hours. Note that he was on Entresto which probably was not covered and the patient was started on lisinopril 2.5 mg by mouth daily. The patient is also on metoprolol 25 mg by mouth twice a day. The patient is has no chest pain. No cough or sputum production. Remains on IV Solu Medrol which will be tapered to oral prednisone as of today. Fluid balance is negative and the patient is a negative fluid balance of 1 L over the past 24 hours. White cell count is at 17.2. Renal function is stable. No significant electrodes imbalance. Bicarb level is up to 31. Objective - Vital Signs Vital signs: Vital Signs Temp 98.1 F 05/20/18 12:00 Pulse 65 05/20/18 13:00 Resp 29 H 05/20/18 13:00 BP 101/58 05/20/18 13:00 Pulse Ox 95 05/20/18 13:00 Intake & Output 05/19/18 05/20/18 05/20/18 18:59 06:59 18:59 Intake Total 2800 520 1280 Output Total 1960 2430 1610 Balance 840 -1910 -330 Weight 80.4 kg Intake: IV 200 Magnesium Sulfate-D5w Pmx 200 1 gm In Dextrose/Water 1 100ml.bag @ 100 mls/hr IVPB Q1H [facility] Rx#: [id number] Oral 2600 520 1280 Output: Urine 1960 2430 1610 Other: Voiding Method Indwelling Catheter Indwelling Catheter Indwelling Catheter - Exam Patient is laying down comfortably in bed. Mild degree of respiratory distress and the patient is currently utilizing a full face BiPAP mask and is attached to a BiPAP machine for respiratory support. Head exam was generally normal. There was no scleral icterus or corneal arcus. Mucous membranes were moist. Examination neck shows positive JVDs and there is no goiter or neck masses. No lymphadenopathy. No thrush. Lungs sounds are diminished bilaterally along with some scattered rhonchi and scattered expiratory wheezes without the lung kinney. The patient also has crackles at lung bases bilaterally Cardiac exam revealed the PMI to be normally situated and sized. The rhythm was regular and no extrasystoles were noted during several minutes of auscultation. The first and second heart sounds were normal and physiologic splitting of the second heart sound was noted. There were no murmurs, rubs, clicks, or gallops. Abdominal exam revealed normal bowel sounds. The abdomen was soft, non-tender, and without masses, organomegaly, or appreciable enlargement of the abdominal aorta. Examination of the extremities revealed easily palpable radial, femoral and pedal pulses. There was no cyanosis, clubbing or edema. Examination of the skin revealed no evidence of significant rashes, suspicious appearing nevi or other concerning lesions. Neurologically the patient is awake and alert and following commands - Labs CBC & Chem 7: 05/20/18 04:47 05/20/18 04:47 Labs: Abnormal Lab Results - Last 24 Hours (Table) 05/20/18 05/20/18 Range/Units 04:47 04:47 WBC 17.2 H (3.8-10.6) k/uL Neutrophils # 15.5 H (1.3-7.7) k/uL Lymphocytes # 0.8 L (1.0-4.8) k/uL Chloride 95 L (98-107) mmol/L Carbon Dioxide 31 H (22-30) mmol/L BUN 28 H (9-20) mg/dL Glucose 127 H (74-99) mg/dL Assessment and Plan Plan: 1 acute hypoxic respiratory failure, essentially secondary to CHF and pulmonary edema. Patient continues to be in pulmonary edema. The patient is on IV Lasix. He required additional dose of Lasix overnight. Chest x-ray still showing evidence of pulmonate edema. Continue Lasix. We'll continue Aldactone. We'll continue optimizing of the CHF. The hypoxic respiratory failure is improving and the patient is currently down to 5 L about 2 by nasal cannula. 2 COPD, chronic 3 acute hypertensive emergency, currently on no nitroglycerin which was discontinued earlier this morning. The patient's blood pressure under good control for now 4 congestion heart failure with an ejection fraction of 20% to 25% 5 hypotension, recovered with fluid resuscitation and pressors. The hypotension recovered and the patient's blood pressure is normalized for now 6 coronary artery disease with previous coronary intervention and stenting, please refer to the catheterization from 2017 7 previous history of nonsustained V. tach 8 previous history of DVT 9 peripheral vascular disease with a previous fem-fem bypass surgery 10 medication noncompliance and the patient has not been taking any other medication that was given to him since his discharge from the hospital 11 hyperlipidemia 12 previous history of hypertension 13 restless leg syndrome 14 sciatica 15 acute ventilator-dependent respiratory failure approximately 6 weeks ago, recovered and the patient was extubated without any major difficulties. Plan Continue Lasix at a dose of 40 mg IV push every 8 hours. Monitor electrolytes. Monitor renal function. Repeat chest x-ray in the morning. Wean down the FiO2 as tolerated. Stopped IV Solu Medrol and start the patient a prednisone burst taper. Continue metoprolol. Continue Zestril. We'll continue to follow.
[2018-05-20] MEDS: ATORVASTATIN 80 MG TAB PO SCH (20:35)
--- NOTE | 2018-05-20 23:17 | PN ---
PROGRESS NOTE DATE OF SERVICE: 05/20/2018 PRESENTING COMPLAINT: Short of breath. INTERVAL HISTORY: Patient was admitted with CHF and COPD exacerbation. Remains in the ICU. Did better today. Did tolerate some diet. Down to 3 L of nasal cannula. Feeling better. Last bowel movement was 2 days ago. REVIEW OF SYSTEMS: Done for constitutional, cardiovascular, GI, pulmonary; relevant findings as above. The patient did sit out on a chair. CURRENT MEDICATIONS: Reviewed. They include DuoNeb, Lasix 40 mg IV q.8, oral prednisone. PHYSICAL EXAMINATION: Temperature 98.6, pulse 74, respiration 26, blood pressure 112/61, pulse ox 94% on 3 L. GENERAL APPEARANCE: Lying in bed. Less short of breath. EYES: Pupils equal. Conjunctivae normal. HEENT: External appearance of nose and ears normal. Oral cavity normal. NECK: JVD unable to assess. Mass not palpable. RESPIRATORY: Effort increased. LUNGS: Decreased breath sounds. Prolonged expiration. Mild wheezing. CARDIOVASCULAR: First and second sounds normal. No edema. ABDOMEN: Soft, nontender. Liver and spleen not palpable. PSYCHIATRY: Alert and oriented x3. Mood and affect normal. INVESTIGATIONS: White count 17.2, potassium 4.1, BUN 28, creatinine 0.80. ASSESSMENT: 1. Acute congestive heart failure exacerbation from systolic dysfunction, ejection fraction 20% to 25%, from underlying coronary artery disease. 2. Coronary artery disease with stent in 2013. 3. Acute chronic obstructive pulmonary disease exacerbation in a current smoker. 4. Chronic nicotine dependence. Patient is a cigarette smoker. 5. Peripheral artery disease, previous femorofemoral bypass. 6. Acute hypoxic and hypercapnic respiratory failure, present on admission. The patient is down to 3 L of oxygen from underlying chronic obstructive pulmonary disease. 7. Hyperlipidemia. 8. Essential hypertension, uncontrolled upon presentation, now better controlled. 9. Restless legs syndrome. 10.Chronic rotator cuff injury. 11.Gastroesophageal reflux disease. PLAN: Continue current medication and treatment plan. Keep the patient on IV Lasix, hoping he can be switched to p.o. Lasix tomorrow and moved out of the ICU tomorrow. Care was discussed with the patient. MMODL / IJN: [id number] /
[2018-05-21] MEDS: FUROSEMIDE 10 MG/ML 4 ML VIAL IV SCH ×2 (01:11→08:00)
[2018-05-21 05:21] LABS: Basophils % (A) 0 %; Eosinophils # (A) 0.1 k/uL (0-0.7); Eosinophils % (A) 1 %; HCT 46.9 % (39.0-53.0); HGB 15.3 gm/dL (13.0-17.5); Lymphocytes # (A) 2.4 k/uL (1.0-4.8); Lymphocytes % (A) 14 %; MCH 32.3 pg (25.0-35.0); MCHC 32.7 g/dL (31.0-37.0); MCV 98.8 fL (80.0-100.0); Mean Platelet Volume 7.5; Monocytes # (A) 0.9 k/uL (0-1.0); Monocytes % (A) 5 %; Neutrophils # (A) 13.3 k/uL (1.3-7.7); Neutrophils % (A) 79 %; Platelet Count 211 k/uL (150-450); RBC 4.75 m/uL (4.30-5.90); RDW 13.8 % (11.5-15.5)
[2018-05-21 05:43] LABS: Anion Gap 8 mmol/L; Blood Urea Nitrogen 24 mg/dL (9-20); Calcium 9.2 mg/dL (8.4-10.2); Carbon Dioxide 35 mmol/L (22-30); Chloride 92 mmol/L (98-107); Glucose 104 mg/dL (74-99); Magnesium 2.1 mg/dL (1.6-2.3); Phosphorus 3.4 mg/dL (2.5-4.5); Potassium 3.6 mmol/L (3.5-5.1); Sodium 135 mmol/L (137-145)
[2018-05-21] MEDS ORDERED: POTASSIUM CHLORIDE ER 20 MEQ TAB.ER PO SCH (06:00)
[2018-05-21] MEDS: FORMOTEROL FUMARATE 20 MCG/2 ML NEBU INHALATION SCH ×2 (07:05→19:43)
[2018-05-21] MEDS: IPRATROPIUM-ALBUTEROL 3 ML NEB INHALATION SCH ×4 (07:05→19:43)
[2018-05-21] MEDS: BUDESONIDE 1 MG/2 ML NEBU INHALATION SCH ×2 (07:05→19:43)
[2018-05-21] MEDS: NICOTINE 21MG/24HR PATCH TRANSDERM SCH (08:01)
[2018-05-21] MEDS: METOPROLOL TARTRATE 25 MG TAB PO SCH ×2 (08:01→20:08)
[2018-05-21] MEDS: SPIRONOLACTONE 25 MG TAB PO SCH (08:01)
[2018-05-21] MEDS: CLOPIDOGREL 75 MG TAB PO SCH (08:01)
[2018-05-21] MEDS: predniSONE 20 MG TAB PO SCH (08:01)
[2018-05-21] MEDS: LISINOPRIL 2.5 MG TAB PO SCH (08:01)
[2018-05-21] MEDS: ENOXAPARIN 40 MG/0.4 ML SYRINGE SQ SCH (08:01)
[2018-05-21] MEDS: ASPIRIN 81 MG PO SCH (08:01)
--- NOTE | 2018-05-21 08:33 | P.PN ---
Subjective Progress Note Date: 05/21/18 Principal diagnosis: Shortness of breath This is another admission for this 67-year-old gentleman with an extensive cardiac history consistent off coronary artery disease and prior stenting of the left circumflex and RCA in 2013, severe ischemic cardiomyopathy with a recent echocardiogram in March 2018 showing an EF of 20-25%, chronic respiratory failure secondary to COPD, hypertension, and dyslipidemia. The patient just was discharged from the hospital in March 2018 after he was admitted with a pneumonia/ COPD exacerbation. He was in his usual state of health until yesterday when suddenly he developed shortness of breath. He did not have any symptoms of chest pain or chest discomfort. No cough or fever or chills. No dizziness or lightheadedness. No syncope. No feeling of heart racing or fluttering. Ambulance was called and the patient was found to be in acute respiratory distress and he was about to be intubated but in the hospital he was placed on BiPAP with significant improvement in his respiratory distress and shortness of breath. He was found to be also hypertensive with a systolic blood pressure about 230 mmHg. Please note that the patient was not taking all his cardiac medications according to him because he was running output. Currently the patient is mild respiratory distress with he's on BiPAP. He is satting good. The EKG showed sinus tachycardia when he presented to the hospital but currently he has been maintaining a heart rate around 90 bpm. the first set of troponin came in to be within normal limits but the CK-MB is slightly elevated. We'll follow-up with the 2 more sets of serial cardiac enzymes. The chest x- ray showed findings consistent with pulmonary edema. The BNP came in to be also elevated and around 3000. The patient was placed on nitro drip when he presented to the hospital and currently his systolic blood pressure is in the 90s. I am going to DC the nitro drip at this point. On follow-up with the patient today, he is feeling better in term shortness of breath. He still have bilateral expiratory wheezing. I would recommend keeping the patient on the current dose of Lasix which is 40 mg IV 3 times a day. The kidney function continues to be stable. Beside that he is on [facility] for the cardiomyopathy and down the line as an outpatient the patient does need to have an AICD. Objective - Vital Signs Vital signs: Vital Signs Temp 98.3 F 05/21/18 08:00 Pulse 68 05/21/18 08:00 Resp 20 05/21/18 08:00 BP 112/76 05/21/18 08:00 Pulse Ox 92 L 05/21/18 08:00 Intake & Output 05/20/18 05/21/18 05/21/18 18:59 06:59 18:59 Intake Total 2080 120 730 Output Total 2710 1310 80 Balance -630 -1190 650 Weight 77.3 kg Intake: Oral 2080 120 730 Output: Urine 2710 1310 80 Other: Voiding Method Indwelling Catheter Indwelling Catheter - Constitutional General appearance: Present: no acute distress - Respiratory Respiratory: bilateral: wheezing - Cardiovascular Rhythm: regular Heart sounds: normal: S1, S2 - Labs CBC & Chem 7: 05/21/18 04:50 05/21/18 04:50 Labs: Abnormal Lab Results - Last 24 Hours (Table) 05/21/18 05/21/18 Range/Units 04:50 04:50 WBC 17.0 H (3.8-10.6) k/uL Neutrophils # 13.3 H (1.3-7.7) k/uL Sodium 135 L (137-145) mmol/L Chloride 92 L (98-107) mmol/L Carbon Dioxide 35 H (22-30) mmol/L BUN 24 H (9-20) mg/dL Glucose 104 H (74-99) mg/dL Assessment and Plan Assessment: Assessment #1 acute hypoxic respiratory failure #2 flash pulmonary edema. Likely to be precipitated by uncontrolled hypertension #3 hypertension emergency #4 known CAD and prior stenting of the RCA and LCx in 2013 #5 severe ischemic cardiomyopathy with an EF of 20-25% #6 advanced chronic obstructive pulmonary disease #7 noncompliance with medications as well as diet #8 multiple comorbid conditions Plan #1 continue the current dose of Lasix IV which is 40 mg 3 times a day #2 continue the current medical regimen including dual antiplatelet along with a statin and beta francesco and NOELLE inhibitor and Aldactone Thank you for allowing us participate in his care and we'll continue following up with the patient.
--- NOTE | 2018-05-21 10:48 | XR ---
EXAMINATION TYPE: XR chest 1V DATE OF EXAM: 05/21/2018 CLINICAL HISTORY: Difficulty breathing and CHF progress study. TECHNIQUE: Single AP portable upright view of the chest is obtained. COMPARISON: Chest x-ray from one day earlier and older studies. CTA chest March 16, 2018. FINDINGS: There is interval improvement in interstitial prominence or edema bilaterally. There is st able tiny left pleural effusion with associated left basilar atelectasis. Background of chronic emphy sematous changes redemonstrated. Right lung is clear currently. Cardiac silhouette size is stable and upper limits of normal. There is redemonstration of right-sided glenohumeral joint arthropathy IMPRESSION: Improving interstitial edema bilaterally. Background chronic emphysematous change with pe rsistent tiny left pleural effusion and associated left basilar atelectasis
--- NOTE | 2018-05-21 16:08 | P.PN ---
Subjective Progress Note Date: 05/21/18 Principal diagnosis: Acute hypoxic rest secondary to CHF, pulmonary edema 67-year-old male patient, got admitted to the ICU yesterday because of worsening shortness of breath and he was found to be in acute CHF and pulmonary edema. The patient also came in with hypertensive emergency and his blood pressure was poorly controlled with a systolic blood pressure as high as 230, And overnight the patient was placed on nitroglycerin drip for blood pressure control. This morning it is off the nitroglycerin drip. His chest x-ray is consistent with CHF and pulmonary edema and the patient is currently on BiPAP at a pressure of 14/6 cm of water and FiO2 of 40%. No chest pain. No angina. The patient denies taking any of the maintenance medication to was supposed to get following his discharge from the hospital approximately 3 weeks ago. Note that he is post respiratory failure with intubation mechanical ventilation. The patient has a proBNP level of 3580. First set of troponins of 0.019. Rest of the blood work and electrodes are all within normal limits and the potassium level is slightly elevated at 5.5. No fever. No chills. No hemoptysis. No pleurisy. No altered mentation and the patient is able to answer all questions effectively. On 05/19/2018 and I'm seeing this patient for a follow-up. The patient's overnight had some worsening shortness of breath. He was noted to be in acute pulmonary edema at around 3 AM this morning. He was very short of breath and he was given a combination of morphine and IV Lasix. Immediately after the IV Lasix administration, the patient diuresed and he continues to be in a negative fluid balance. The chest x-ray from 6 AM this morning still showing acute pulmonary edema. The neck fluid balance has been -3.1 L over the past 24 hours and the patient has been in a negative fluid balance of 540 mL over the past 8 hours. Denies having any chest pain. No altered mentation. Chronic congested cough without any significant sputum production. No major edema in lower extremities bilaterally. No reported fever or chills. Remains on IV Lasix 40 mg every 12 hours. The patient was also started on Aldactone 25 mg by mouth daily. He is on IV submental 40 mg every 8 hours along with DuoNeb nebulized treatments regarding his COPD. He remains on metoprolol dose was increased up to 25 g by mouth twice a day. On 05/20/2018, the patient is being seen for a follow-up. The patient is feeling well. Overnight he became again short of breath and the morning chest x -ray still showing a component of pulmonary edema. He is still diuresing very nicely with a combination of Lasix and Aldactone. The patient is receiving Lasix 40 mg IV push every 12 hours. Note that he was on Entresto which probably was not covered and the patient was started on lisinopril 2.5 mg by mouth daily. The patient is also on metoprolol 25 mg by mouth twice a day. The patient is has no chest pain. No cough or sputum production. Remains on IV Solu Medrol which will be tapered to oral prednisone as of today. Fluid balance is negative and the patient is a negative fluid balance of 1 L over the past 24 hours. White cell count is at 17.2. Renal function is stable. No significant electrodes imbalance. Bicarb level is up to 31. On 05/21/2018 patient seen in follow-up in intensive care unit. Patient has been diuresed, history of increased his Lasix to 40 mg every 8 hours. And patient has produced over 4 L of urine over the last 24 hours, his net Fluid balance is -1820 ML. Patient reports breathing better, no episodes of respiratory distress overnight. Lung sounds are diminished bilaterally with some scattered rhonchi and scattered expiratory wheezes, limited crackles at the lung bases bilaterally, with a tiny left pleural effusion, and associated left basilar atelectasis, room air pulse ox was 92%, patient remains hemodynamically stable. No chest pain, no cough, sputum production. Patient's insurance coverage was checked, and he does have coverage for [facility], in the meanwhile . he is on lisinopril while inpatient, his insurance covers will also cover Breo-Ellipta or Anoro. Patient has been sufficiently diuresed, has improved, is not on room air, and is IV Lasix will be switched to oral today Objective - Vital Signs Vital signs: Vital Signs Temp 98.1 F 05/21/18 12:00 Pulse 72 05/21/18 12:00 Resp 18 05/21/18 12:00 BP 110/70 05/21/18 12:00 Pulse Ox 92 L 07/12/18 12:00 Intake & Output 05/20/18 05/21/18 05/21/18 18:59 06:59 18:59 Intake Total 2080 120 955 Output Total 2710 1310 1235 Balance -630 -1190 -280 Weight 77.3 kg Intake: Oral 0 120 955 Output: Urine 2710 1310 1235 Other: Voiding Method Indwelling Catheter Indwelling Catheter Indwelling Catheter - Exam Patient is laying down comfortably in bed. Mild degree of respiratory distress and the patient is currently utilizing a full face BiPAP mask and is attached to a BiPAP machine for respiratory support. Head exam was generally normal. There was no scleral icterus or corneal arcus. Mucous membranes were moist. Examination neck shows positive JVDs and there is no goiter or neck masses. No lymphadenopathy. No thrush. Lungs sounds are diminished, with minimal end expiratory wheezing, and minimal crackles at bilateral bases Cardiac exam revealed the PMI to be normally situated and sized. The rhythm was regular and no extrasystoles were noted during several minutes of auscultation. The first and second heart sounds were normal and physiologic splitting of the second heart sound was noted. There were no murmurs, rubs, clicks, or gallops. Abdominal exam revealed normal bowel sounds. The abdomen was soft, non-tender, and without masses, organomegaly, or appreciable enlargement of the abdominal aorta. Examination of the extremities revealed easily palpable radial, femoral and pedal pulses. There was no cyanosis, clubbing or edema. Examination of the skin revealed no evidence of significant rashes, suspicious appearing nevi or other concerning lesions. Neurologically the patient is awake and alert and following commands - Labs CBC & Chem 7: 05/21/18 04:50 05/21/18 13:29 Labs: Abnormal Lab Results - Last 24 Hours (Table) 05/21/18 05/21/18 Range/Units 04:50 04:50 WBC 17.0 H (3.8-10.6) k/uL Neutrophils # 13.3 H (1.3-7.7) k/uL Sodium 135 L (137-145) mmol/L Chloride 92 L (98-107) mmol/L Carbon Dioxide 35 H (22-30) mmol/L BUN 24 H (9-20) mg/dL Glucose 104 H (74-99) mg/dL Assessment and Plan Plan: Assessment: 1 acute hypoxic respiratory failure, essentially secondary to CHF and pulmonary edema. Patient continues to be in pulmonary edema. The patient is on IV Lasix. He required additional dose of Lasix overnight. Chest x-ray still showing evidence of pulmonate edema. Continue Lasix. We'll continue Aldactone. We'll continue optimizing of the CHF. The hypoxic respiratory failure is improving and the patient is currently down to 5 L about 2 by nasal cannula. 2 COPD, chronic 3 acute hypertensive emergency, currently on no nitroglycerin which was discontinued earlier this morning. The patient's blood pressure under good control for now 4 congestion heart failure with an ejection fraction of 20% to 25% 5 hypotension, recovered with fluid resuscitation and pressors. The hypotension recovered and the patient's blood pressure is normalized for now 6 coronary artery disease with previous coronary intervention and stenting, please refer to the catheterization from 2017 7 previous history of nonsustained V. tach 8 previous history of DVT 9 peripheral vascular disease with a previous fem-fem bypass surgery 10 medication noncompliance and the patient has not been taking any other medication that was given to him since his discharge from the hospital 11 hyperlipidemia 12 previous history of hypertension 13 restless leg syndrome 14 sciatica 15 acute ventilator-dependent respiratory failure approximately 6 weeks ago, recovered and the patient was extubated without any major difficulties. Plan: We'll switch the IV Lasix to oral Lasix 40 mg twice daily, patient is now on room air, less dyspneic, chest x-ray is improving. Patient is stable to be transferred out of intensive care unit today selective care. Continue oral prednisone, continue nebulized bronchodilators, social work has been consulted, in regards to prescription coverage assistance. I performed a history & physical examination of the patient and discussed their management with my nurse practitioner, Priscila Pan. I reviewed the nurse practitioner's note and agree with the documented findings and plan of care. Lung sounds are positive for a few scattered crackles, minimal wheezes. The findings and the impression was discussed with the patient. I attest to the documentation by the nurse practitioner. Time with Patient: Less than 30
[2018-05-21] MEDS: FUROSEMIDE 40 MG TAB PO SCH (16:25)
[2018-05-21] MEDS: ATORVASTATIN 80 MG TAB PO SCH (20:08)
--- NOTE | 2018-05-21 20:48 | PN ---
PROGRESS NOTE DATE OF SERVICE: 05/21/2018 PRESENT COMPLAINT: Short of breath. INTERVAL HISTORY: Patient was admitted with CHF and COPD exacerbation; in the ICU he is doing much better. Down to nasal cannula. Did tolerate a diet. Did sit up in a chair. Did walk a few steps. REVIEW OF SYSTEMS: Done for constitutional, cardiovascular, GI, pulmonary; relevant findings as above. Cough has decreased. Minimal sputum production. CURRENT MEDICATIONS: Reviewed. They include: 1. Oral Lasix. 2. Lopressor. 3. Oral prednisone. PHYSICAL EXAMINATION: Temperature 98.1, pulse 72, respiration 18, blood pressure 110/70, pulse ox 92% on room air. GENERAL APPEARANCE: Sitting up, more perky. EYES: Pupils equal. Conjunctivae normal. HEENT: External appearance of nose and ears normal. Oral cavity normal. NECK: JVD unable to assess. Mass not palpable. RESPIRATORY: Effort increased. LUNGS: Improved air entry. Decreased wheezing. CARDIOVASCULAR: First and second sounds normal. No edema. ABDOMEN: Soft, non-tender. Liver and spleen not palpable. PSYCHIATRY: Alert and oriented x3. Mood and affect normal. INVESTIGATIONS: White count 17, potassium 3.6, BUN 24, creatinine 0.80. Chest x-ray shows improved interstitial edema. ASSESSMENT: 1. Acute congestive heart failure exacerbation from systolic dysfunction, ejection fraction 25%, underlying coronary artery disease, much improved. 2. Coronary artery disease with a stent in 2013. 3. Acute chronic obstructive pulmonary disease exacerbation in a current smoker, improved. 4. Chronic nicotine dependence. Patient is a current cigarette smoker. 5. Peripheral artery disease. 6. Previous femorofemoral bypass. 7. Acute hypoxic and hypercapnic respiratory failure, present on admission. 8. Hyperlipidemia. 9. Essential hypertension, uncontrolled, upon presentation. 10.Restless legs syndrome. 11.Chronic rotator cuff injury. 12.Gastroesophageal reflux disease. PLAN: Patient will be switched to p.o. Lasix today. He will be moved out of the ICU. Overall doing better. Told the nurse to encourage the patient to ambulate. MMODL / IJN: [id number] /
[2018-05-22 06:29] LABS: Basophils % (A) 0 %; Eosinophils # (A) 0.1 k/uL (0-0.7); Eosinophils % (A) 1 %; HCT 49.1 % (39.0-53.0); Lymphocytes # (A) 3.1 k/uL (1.0-4.8); Lymphocytes % (A) 28 %; MCH 32.3 pg (25.0-35.0); MCHC 32.6 g/dL (31.0-37.0); Mean Platelet Volume 7.3; Monocytes # (A) 0.7 k/uL (0-1.0); Monocytes % (A) 7 %; Neutrophils # (A) 6.8 k/uL (1.3-7.7); Neutrophils % (A) 62 %; Platelet Count 191 k/uL (150-450); RBC 4.96 m/uL (4.30-5.90); RDW 13.7 % (11.5-15.5)
[2018-05-22 06:40] LABS: Anion Gap 8 mmol/L; Blood Urea Nitrogen 24 mg/dL (9-20); Calcium 9.5 mg/dL (8.4-10.2); Carbon Dioxide 34 mmol/L (22-30); Chloride 95 mmol/L (98-107); Glucose 86 mg/dL (74-99); Phosphorus 3.8 mg/dL (2.5-4.5); Potassium 4.2 mmol/L (3.5-5.1); Sodium 137 mmol/L (137-145)
[2018-05-22] MEDS: IPRATROPIUM-ALBUTEROL 3 ML NEB INHALATION SCH ×3 (07:38→15:16)
[2018-05-22] MEDS: BUDESONIDE 1 MG/2 ML NEBU INHALATION SCH (07:38)
[2018-05-22] MEDS: FORMOTEROL FUMARATE 20 MCG/2 ML NEBU INHALATION SCH (07:38)
[2018-05-22] MEDS: ENOXAPARIN 40 MG/0.4 ML SYRINGE SQ SCH (08:37)
[2018-05-22] MEDS: predniSONE 20 MG TAB PO SCH (08:38)
[2018-05-22] MEDS: SPIRONOLACTONE 25 MG TAB PO SCH (08:38)
[2018-05-22] MEDS: CLOPIDOGREL 75 MG TAB PO SCH (08:38)
[2018-05-22] MEDS: METOPROLOL TARTRATE 25 MG TAB PO SCH (08:39)
[2018-05-22] MEDS: FUROSEMIDE 40 MG TAB PO SCH (08:39)
[2018-05-22] MEDS: ASPIRIN 81 MG PO SCH (08:39)
[2018-05-22] MEDS: NICOTINE 21MG/24HR PATCH TRANSDERM SCH (08:39)
[2018-05-22] MEDS: LISINOPRIL 2.5 MG TAB PO SCH (08:50)
--- NOTE | 2018-05-22 08:53 | P.PN ---
Subjective Progress Note Date: 05/22/18 Principal diagnosis: Shortness of breath This is another admission for this 67-year-old gentleman with an extensive cardiac history consistent off coronary artery disease and prior stenting of the left circumflex and RCA in 2013, severe ischemic cardiomyopathy with a recent echocardiogram in March 2018 showing an EF of 20-25%, chronic respiratory failure secondary to COPD, hypertension, and dyslipidemia. The patient just was discharged from the hospital in March 2018 after he was admitted with a pneumonia/ COPD exacerbation. He was in his usual state of health until yesterday when suddenly he developed shortness of breath. He did not have any symptoms of chest pain or chest discomfort. No cough or fever or chills. No dizziness or lightheadedness. No syncope. No feeling of heart racing or fluttering. Ambulance was called and the patient was found to be in acute respiratory distress and he was about to be intubated but in the hospital he was placed on BiPAP with significant improvement in his respiratory distress and shortness of breath. He was found to be also hypertensive with a systolic blood pressure about 230 mmHg. Please note that the patient was not taking all his cardiac medications according to him because he was running output. Currently the patient is mild respiratory distress with he's on BiPAP. He is satting good. The EKG showed sinus tachycardia when he presented to the hospital but currently he has been maintaining a heart rate around 90 bpm. the first set of troponin came in to be within normal limits but the CK-MB is slightly elevated. We'll follow-up with the 2 more sets of serial cardiac enzymes. The chest x- ray showed findings consistent with pulmonary edema. The BNP came in to be also elevated and around 3000. The patient was placed on nitro drip when he presented to the hospital and currently his systolic blood pressure is in the 90s. I am going to DC the nitro drip at this point. On follow-up with the patient today, he is feeling better in term shortness of breath. No chest pain or chest discomfort. No dizziness or lightheadedness. The blood pressure has been marginally low and I'm going to decrease the dose of metoprolol to 12.5 mg by mouth twice a day. Objective - Vital Signs Vital signs: Vital Signs Temp 97.1 F L 05/22/18 03:40 Pulse 74 05/22/18 07:58 Resp 18 05/22/18 03:40 BP 117/76 05/22/18 03:40 Pulse Ox 95 05/22/18 03:40 Intake & Output 05/21/18 05/22/18 05/22/18 18:59 06:59 18:59 Intake Total 1205 480 476 Output Total 1510 1300 Balance -305 -820 476 Weight 75 kg Intake: Oral 1205 480 476 Output: Urine 1510 1300 Other: Voiding Method Indwelling Catheter Toilet Urinal # Voids 1 - Constitutional General appearance: Present: no acute distress - Respiratory Respiratory: bilateral: CTA - Cardiovascular Rhythm: regular Heart sounds: normal: S1, S2 - Labs CBC & Chem 7: 05/22/18 06:01 05/22/18 06:01 Labs: Abnormal Lab Results - Last 24 Hours (Table) 05/22/18 05/22/18 Range/Units 06:01 06:01 WBC 11.0 H (3.8-10.6) k/uL Chloride 95 L (98-107) mmol/L Carbon Dioxide 34 H (22-30) mmol/L BUN 24 H (9-20) mg/dL Assessment and Plan Assessment: Assessment #1 acute hypoxic respiratory failure #2 flash pulmonary edema. Likely to be precipitated by uncontrolled hypertension #3 hypertension emergency #4 known CAD and prior stenting of the RCA and LCx in 2013 #5 severe ischemic cardiomyopathy with an EF of 20-25% #6 advanced chronic obstructive pulmonary disease #7 noncompliance with medications as well as diet #8 multiple comorbid conditions Plan #1 continue the current medical regimen with decreasing the dose of metoprolol to 12.5 mg by mouth twice a day
[2018-05-22] MEDS ORDERED: METOPROLOL TARTRATE 12.5 MG TAB PO SCH ×2 (09:00→21:00)
[2018-05-22 10:48] VITALS: BP 95/61; TEMP 97.7
--- NOTE | 2018-05-22 14:08 | P.PN ---
Subjective Progress Note Date: 05/22/18 67-year-old male patient, got admitted to the ICU yesterday because of worsening shortness of breath and he was found to be in acute CHF and pulmonary edema. The patient also came in with hypertensive emergency and his blood pressure was poorly controlled with a systolic blood pressure as high as 230, And overnight the patient was placed on nitroglycerin drip for blood pressure control. This morning it is off the nitroglycerin drip. His chest x-ray is consistent with CHF and pulmonary edema and the patient is currently on BiPAP at a pressure of 14/6 cm of water and FiO2 of 40%. No chest pain. No angina. The patient denies taking any of the maintenance medication to was supposed to get following his discharge from the hospital approximately 3 weeks ago. Note that he is post respiratory failure with intubation mechanical ventilation. The patient has a proBNP level of 3580. First set of troponins of 0.019. Rest of the blood work and electrodes are all within normal limits and the potassium level is slightly elevated at 5.5. No fever. No chills. No hemoptysis. No pleurisy. No altered mentation and the patient is able to answer all questions effectively. On 05/19/2018 and I'm seeing this patient for a follow-up. The patient's overnight had some worsening shortness of breath. He was noted to be in acute pulmonary edema at around 3 AM this morning. He was very short of breath and he was given a combination of morphine and IV Lasix. Immediately after the IV Lasix administration, the patient diuresed and he continues to be in a negative fluid balance. The chest x-ray from 6 AM this morning still showing acute pulmonary edema. The neck fluid balance has been -3.1 L over the past 24 hours and the patient has been in a negative fluid balance of 540 mL over the past 8 hours. Denies having any chest pain. No altered mentation. Chronic congested cough without any significant sputum production. No major edema in lower extremities bilaterally. No reported fever or chills. Remains on IV Lasix 40 mg every 12 hours. The patient was also started on Aldactone 25 mg by mouth daily. He is on IV submental 40 mg every 8 hours along with DuoNeb nebulized treatments regarding his COPD. He remains on metoprolol dose was increased up to 25 g by mouth twice a day. On 05/20/2018, the patient is being seen for a follow-up. The patient is feeling well. Overnight he became again short of breath and the morning chest x -ray still showing a component of pulmonary edema. He is still diuresing very nicely with a combination of Lasix and Aldactone. The patient is receiving Lasix 40 mg IV push every 12 hours. Note that he was on Entresto which probably was not covered and the patient was started on lisinopril 2.5 mg by mouth daily. The patient is also on metoprolol 25 mg by mouth twice a day. The patient is has no chest pain. No cough or sputum production. Remains on IV Solu Medrol which will be tapered to oral prednisone as of today. Fluid balance is negative and the patient is a negative fluid balance of 1 L over the past 24 hours. White cell count is at 17.2. Renal function is stable. No significant electrodes imbalance. Bicarb level is up to 31. On 05/21/2018 patient seen in follow-up in intensive care unit. Patient has been diuresed, history of increased his Lasix to 40 mg every 8 hours. And patient has produced over 4 L of urine over the last 24 hours, his net Fluid balance is -1820 ML. Patient reports breathing better, no episodes of respiratory distress overnight. Lung sounds are diminished bilaterally with some scattered rhonchi and scattered expiratory wheezes, limited crackles at the lung bases bilaterally, with a tiny left pleural effusion, and associated left basilar atelectasis, room air pulse ox was 92%, patient remains hemodynamically stable. No chest pain, no cough, sputum production. Patient's insurance coverage was checked, and he does have coverage for [facility], in the meanwhile . he is on lisinopril while inpatient, his insurance covers will also cover Breo-Ellipta or Anoro. Patient has been sufficiently diuresed, has improved, is not on room air, and is IV Lasix will be switched to oral today On 05/22/2018, the patient is doing well. The patient is on room air oxygen. IV diuretics were discontinued and the patient was placed on oral Lasix. No chest pain. No significant shortness of breath. No angina. No swelling in lower extremities. Discharge planning is in progress. The patient is currently on oral Lasix. The patient is also on a prednisone burst taper. The patient is awaiting cardiology clearance. The chest x-ray from yesterday showed improvement in the volume status without any active changes of pulmonary edema. Objective - Vital Signs Vital signs: Vital Signs Temp 97.7 F 05/22/18 08:25 Pulse 80 05/22/18 11:41 Resp 18 05/22/18 08:25 BP 95/61 05/22/18 08:25 Pulse Ox 95 05/22/18 08:25 Intake & Output 05/21/18 05/22/18 05/22/18 18:59 06:59 18:59 Intake Total 1205 480 712 Output Total 1510 1300 200 Balance -305 -820 512 Weight 75 kg Intake: Oral 1205 480 712 Output: Urine 1510 1300 200 Other: Voiding Method Indwelling Catheter Toilet Urinal # Voids 1 - Exam Patient is laying down comfortably in bed. Patient is on room air, comfortable breathing comfortably. Head exam was generally normal. There was no scleral icterus or corneal arcus. Mucous membranes were moist. Examination neck shows positive JVDs and there is no goiter or neck masses. No lymphadenopathy. No thrush. Lungs sounds are diminished bilaterally along with some scattered rhonchi and scattered expiratory wheezes without the lung kinney. The patient also has crackles at lung bases and these crackles are minimal at this point and improved considerably over the past few days. Cardiac exam revealed the PMI to be normally situated and sized. The rhythm was regular and no extrasystoles were noted during several minutes of auscultation. The first and second heart sounds were normal and physiologic splitting of the second heart sound was noted. There were no murmurs, rubs, clicks, or gallops. Abdominal exam revealed normal bowel sounds. The abdomen was soft, non-tender, and without masses, organomegaly, or appreciable enlargement of the abdominal aorta. Examination of the extremities revealed easily palpable radial, femoral and pedal pulses. There was no cyanosis, clubbing or edema. Examination of the skin revealed no evidence of significant rashes, suspicious appearing nevi or other concerning lesions. Neurologically the patient is awake and alert and following commands - Labs CBC & Chem 7: 05/22/18 06:01 05/22/18 06:01 Labs: Abnormal Lab Results - Last 24 Hours (Table) 05/22/18 05/22/18 Range/Units 06:01 06:01 WBC 11.0 H (3.8-10.6) k/uL Chloride 95 L (98-107) mmol/L Carbon Dioxide 34 H (22-30) mmol/L BUN 24 H (9-20) mg/dL Assessment and Plan Plan: 1 acute hypoxic respiratory failure, essentially secondary to CHF and pulmonary edema. Recovered and the patient is currently on room air oxygen on oral Lasix 40 mg by mouth twice a day in addition to that the patient is on a combination of aspirin, Plavix, Zestril and metoprolol. 2 COPD, chronic, Currently completing a prednisone burst taper 3 acute hypertensive emergency, currently on no nitroglycerin which was discontinued earlier this morning. The patient's blood pressure under good control for now 4 congestion heart failure with an ejection fraction of 20% to 25%, Well optimized for now 5 hypotension, recovered 6 coronary artery disease with previous coronary intervention and stenting, please refer to the catheterization from 2017 7 previous history of nonsustained V. tach 8 previous history of DVT 9 peripheral vascular disease with a previous fem-fem bypass surgery 10 medication noncompliance and the patient has not been taking any other medication that was given to him since his discharge from the hospital 11 hyperlipidemia 12 previous history of hypertension 13 restless leg syndrome 14 sciatica 15 acute ventilator-dependent respiratory failure approximately 6 weeks ago, recovered and the patient was extubated without any major difficulties. Plan She is doing extremely well. Continue Lasix and Aldactone combination. Aspirin , Plavix, metoprolol and Zestril regarding the CHF. Anoro, at a time of discharge regarding his COPD. Prednisone burst taper. May discharge today to be followed up in our office.
[2018-05-22 15:27] VITALS: PULSE 77; RESP 16
--- NOTE | 2018-05-22 22:39 | DS ---
DISCHARGE SUMMARY DATE OF ADMISSION: 05/18/2018. DATE OF DISCHARGE: 05/22/2018 FINAL DIAGNOSES: 1. Acute congestive heart failure exacerbation from systolic dysfunction, ejection fraction 25% from underlying coronary artery disease. 2. Coronary artery disease with stent in 2013. 3. Acute chronic obstructive pulmonary disease exacerbation in a current smoker. 4. Chronic nicotine dependence. Patient is a current cigarette smoker. 5. Peripheral artery disease with a previous femoral-femoral bypass. 6. Acute hypoxic and hypercapnic respiratory failure, present on admission. 7. Hyperlipidemia. 8. Essential hypertension, uncontrolled upon presentation. 9. Restless legs syndrome. 10.Chronic rotator cuff surgery. 11.Gastroesophageal reflux disease. CONSULTATIONS: Dr. Menjivar from Pulmonary, Dr. Jacob from Cardiology. HOSPITAL COURSE: This is a patient who is a smoker, presented with both COPD and CHF exacerbation, was in the ICU, doing now better, today tolerating a diet. Pulse ox 95% on room air. EXAM: LUNGS: Decreased breath sounds. Minimal wheezing. PSYCH: AO x3. The patient again was reminded about not to smoke. DISCHARGE MEDICATIONS: 1. Requip 2 mg p.o. q.h.s. 2. ProAir HFA 2 puffs every 6 hours p.r.n. 3. Plavix 75 mg a day. 4. Nitrostat 0.4 sublingual q.5 p.r.n. 5. Tudorza 1 puff b.i.d. 6. Ventolin 2.5 every 6 hours p.r.n. 7. Symbicort 160/4.5, 2 puffs b.i.d. 8. Aspirin 81 mg daily. 9. Lipitor 80 mg q.h.s. 10.DuoNeb t.i.d. 11.Lopressor 50 mg b.i.d. 12.Lasix 40 mg b.i.d. 13.Zestril 2.5 p.o. daily. 14.Lopressor 12.5 p.o. b.i.d. 15.Nicotine patch. 16.Aldactone 25 mg a day. 17.Prednisone taper. Follow up with Dr. Jacob on 06/09/2018, Dr. Neo Oden in 2 or 3 days, Dr. Menjivar on 05/29/2018, [facility] in 3 days. MMODL / IJN: [id number] /
== END 2018-05-22 16:40 | disposition home or self-care (01) | DRG 291 ==
LOC: EC 04:29 → 6ICU 06:22 → 6SEL 05-21 17:49
PROVIDERS: ADMIT Hospitalist; ATTEND Hospitalist
DX: I11.0 Hypertensive heart disease with heart failure (principal); J96.21 Acute and chronic respiratory failure with hypoxia; J96.22 Acute and chronic respiratory failure with hypercapnia; I16.1 Hypertensive emergency; J44.1 Chronic obstructive pulmonary disease with (acute) exacerbation; E78.5 Hyperlipidemia, unspecified; F17.210 Nicotine dependence, cigarettes, uncomplicated; G25.81 Restless legs syndrome; I25.10 Atherosclerotic heart disease of native coronary artery without angina pectoris; I25.2 Old myocardial infarction; I25.5 Ischemic cardiomyopathy; I50.23 Acute on chronic systolic (congestive) heart failure; I73.9 Peripheral vascular disease, unspecified; K21.9 Gastro-esophageal reflux disease without esophagitis; M54.30 Sciatica, unspecified side; S43.422A Sprain of left rotator cuff capsule, initial encounter; Z79.02 Long term (current) use of antithrombotics/antiplatelets; Z79.51 Long term (current) use of inhaled steroids; Z79.82 Long term (current) use of aspirin; Z79.899 Other long term (current) drug therapy; Z82.49 Family history of ischemic heart disease and other diseases of the circulatory system; Z82.5 Family history of asthma and other chronic lower respiratory diseases; Z83.3 Family history of diabetes mellitus; Z86.718 Personal history of other venous thrombosis and embolism; Z91.14 Patient's other noncompliance with medication regimen; Z95.5 Presence of coronary angioplasty implant and graft; Z71.6 Tobacco abuse counseling
CPT/HCPCS: 36415; 71045; 80048; 80053; 82550; 82553; 83735; 83880; 84100; 84132; 84484; 85025; 85379; 85610; 85730; 93005; 94640; 94644; 94660; 94760; 96365; 96366; 96374; 96375; 99291

== ENCOUNTER 2018-08-24 09:14 | Inpatient (IN) | payer MEDICARE, OTHER ==
[2018-08-24] MEDS ORDERED: SODIUM CHLORIDE 0.9% 1,000 ML IV STA (09:32)
[2018-08-24] MEDS ORDERED: AZITHROMYCIN 500 MG in SODIUM CHLORIDE 0.9% 250 ML IVPB STA (09:32)
[2018-08-24] MEDS ORDERED: methylPREDNISolone SOD SUCCI 125 MG/2 ML VIAL IV STA (09:32)
[2018-08-24] MEDS ORDERED: ALBUTEROL NEBULIZED 2.5 MG/3 ML INHALATION STA (09:34)
[2018-08-24] MEDS ORDERED: IPRATROPIUM 0.5 MG/2.5 ML NEBU INHALATION STA (09:34)
--- NOTE | 2018-08-24 09:37 | ED ---
General Adult HPI - General Chief complaint: Shortness of Breath Stated complaint: Sob Source: patient Mode of arrival: EMS Limitations: no limitations - History of Present Illness Initial comments: Dictation was produced using [employer] dictation software. please excuse any grammatical, word or spelling errors. Chief Complaint: 67-year-old male past medical history of COPD, GERD, dyslipidemia presents with difficulty breathing. History of Present Illness: It is a 67-year-old male past medical history of COPD, CHF presents with acute onset shortness of breath. Patient unable to provide H at this time secondary to respiratory distress. Patient is dropped off by EMS. EMS reports that he called chief complaint of dyspnea. He lives alone. Chart review shows that patient has extensive history of COPD and has been on BiPAP before. Furthermore, he's been admitted to the intensive care unit for severe COPD. Patient denies any pain complaints. Per EMS, patient had stable vital signs. They provided him with breathing treatments. They did not start him on BiPAP. - Related Data Home Medications Medication Instructions Recorded Confirmed rOPINIRole HCL [Requip] 2 mg PO HS 10/08/14 08/24/18 Albuterol Sulfate [Proair Hfa] 2 puff INHALATION RT-Q6H PRN 03/04/17 08/24/18 Aclidinium [place] [Tudorza 1 puff PO RT-BID 03/16/18 08/24/18 Pressair] Budesonide-Formot 160-4.5 Mcg 2 puff INHALATION RT-BID 03/16/18 08/24/18 [Symbicort 160-4.5 Mcg Inhaler] Atorvastatin [Lipitor] 20 mg PO HS 08/24/18 08/24/18 Ipratropium-Albuterol Nebulize 3 ml INHALATION RT-Q6H PRN 08/24/18 08/24/18 [Duoneb 0.5 mg-3 mg/3 ml Soln] Metoprolol Tartrate [Lopressor] 12.5 mg PO BID 08/24/18 08/24/18 Previous Rx's Medication Instructions Recorded Clopidogrel [Plavix] 75 mg PO DAILY #30 tab 03/07/17 Nitroglycerin Sl Tabs [Nitrostat] 0.4 mg SUBLINGUAL Q5M PRN #25 tab 03/07/17 Aspirin 81 mg PO DAILY chew 03/22/18 Furosemide [Lasix] 40 mg PO BID #60 tab 05/22/18 Lisinopril [Zestril] 2.5 mg PO DAILY #30 tab 05/22/18 Nicotine 21Mg/24Hr Patch [Habitrol] 1 patch TRANSDERM DAILY #30 patch 05/22/18 Spironolactone [Aldactone] 25 mg PO DAILY #30 tab 05/22/18 Allergies Allergy/AdvReac Type Severity Reaction Status Date / Time No Known Allergies Allergy Verified 08/24/18 10:23 Review of Systems ROS Statement: Those systems with pertinent positive or pertinent negative responses have been documented in the HPI. ROS Other: All systems not noted in ROS Statement are negative. Past Medical History Past Medical History: Coronary Artery Disease (CAD), Heart Failure, COPD, Deep Vein Thrombosis (DVT), GERD/Reflux, Hyperlipidemia, Hypertension, Myocardial Infarction (MT), Vascular Disorder Additional Past Medical History / Comment(s): Chronic hypoxic respiratory failure secondary to COPD, chronic hypercapnic respiratory failure secondary to COPD, hypertension, CHF with an ejection fraction of 20-25%, coronary artery disease with previous coronary intervention and stenting please refer to the catheterization from 2017, previous history of nonsustained V. tach, previous history of DVT, peripheral vascular disease with a previous fem-fem bypass surgery, hyperlipidemia, hypertension, restless leg syndrome, sciatica, left rotator cuff injury, chronic bilateral hip pain, previous MT last one being in September 2014 Last Myocardial Infarction Date:: 10/08/14 History of Any Multi-Drug Resistant Organisms: None Reported Past Surgical History: Appendectomy, Bowel Resection, Heart Catheterization With Stent, Hernia Repair Additional Past Surgical History / Comment(s): 12/01/14 R femfem bypass, Abdominal aortagram with bilateral extremity, HEART CATH WITH STENT SEP 2014 , HERNIA SURG X3. Past Anesthesia/Blood Transfusion Reactions: No Reported Reaction Date of Last Stent Placement:: 2013 Past Psychological History: No Psychological Hx Reported Smoking Status: Current every day smoker Past Alcohol Use History: None Reported Past Drug Use History: Marijuana - Past Family History Mother Family Medical History: Chest Pain / Angina, Diabetes Mellitus, Hypertension, Myocardial Infarction (MT) Additional Family Medical History / Comment(s): Mother of MT at age 84 yrs. Father Family Medical History: Asthma, Congestive Heart Failure (CHF), GERD/Reflux, Hypertension, Myocardial Infarction (MT) Additional Family Medical History / Comment(s): Father had black lung disease. General Exam - General Exam Comments Initial Comments: PHYSICAL EXAM: General Impression: Alert and oriented x3, dyspneic, unable to eat, diaphoretic , cyanotic HEENT: Normocephalic atraumatic, extra-ocular movements intact, pupils equal and reactive to light bilaterally, dry mucous membranes Cardiovascular: Heart regular rate and rhythm, S1&S2 audible, no murmurs, rubs or gallops Chest: Poor air exchange, bilateral lung and extremity wheezing Abdomen: Bowel sounds present, abdomen soft, non-tender, non-distended, no organomegaly Musculoskeletal: Pulses present and equal in all extremities, no peripheral edema Motor: Power 5/5 bilaterally, no focal deficits noted Neurological: CN II-XII grossly intact, no focal motor or sensory deficits noted Skin: Intact with no visualized rashes Psych: Normal affect and mood Limitations: no limitations Course Vital Signs 08/24/18 08/24/18 08/24/18 09:19 09:25 09:27 Temperature 97.6 F Pulse Rate 141 H 123 H Respiratory 28 H Rate Blood Pressure 150/90 O2 Sat by Pulse 100 93 L Oximetry 08/24/18 08/24/18 08/24/18 09:30 10:00 10:30 Temperature Pulse Rate 140 H 115 H 106 H Respiratory 20 24 22 Rate Blood Pressure 138/63 138/83 O2 Sat by Pulse 99 100 100 Oximetry 08/24/18 11:00 Temperature Pulse Rate 105 H Respiratory 24 Rate Blood Pressure 140/101 O2 Sat by Pulse 99 Oximetry Medical Decision Making - Medical Decision Making ED course: 67-year-old male with history of severe COPD presents with dyspnea. Vital signs upon arrival shows tachypnea of 28, heart rate of 141, 93 L on 15 nonrebreather. Clinical presentation consistent with severe COPD. Patient immediately placed on BiPAP. Patient was given breathing treatments and sign measurement away.Laboratory evaluation obtained. Leukocytosis of 17.8. Mild macrocytic anemia. Coag panel unremarkable. Potassium level V.8. Rest of labs are otherwise unremarkable. There is mild anion gap acidosis. Patient treated with azithromycin, breathing treatments, corticosteroids. Patient also given 2 g magnesium. Patient observed in emergency department for several hours. He is reevaluated and found to be not in respiratory distress. Patient be continued on BiPAP. We will admit patient in selective care. Patient clinically stable at this time. No dictation for ICU admission. - Lab Data Result diagrams: 08/24/18 09:22 08/24/18 09:22 Lab Results 08/24/18 08/24/18 08/24/18 Range/Units 09:22 09:22 09:22 WBC 17.8 H (3.8-10.6) k/uL RBC 5.11 (4.30-5.90) m/uL Hgb 17.2 (13.0-17.5) gm/dL Hct 51.4 (39.0-53.0) % MCV 100.7 H (80.0-100.0) fL MCH 33.6 (25.0-35.0) pg MCHC 33.4 (31.0-37.0) g/dL RDW 13.2 (11.5-15.5) % Plt Count 274 (150-450) k/uL PT (9.0-12.0) sec INR (<1.2) APTT (22.0-30.0) sec Sodium 143 (137-145) mmol/L Potassium 5.3 H (3.5-5.1) mmol/L Chloride 106 (98-107) mmol/L Carbon Dioxide 24 (22-30) mmol/L Anion Gap 13 mmol/L BUN 9 (9-20) mg/dL Creatinine 0.88 (0.66-1.25) mg/dL Est GFR (CKD-EPI)AfAm >90 (>60 ml/min/1.73 sqM) Est GFR (CKD-EPI)NonAf 89 (>60 ml/min/1.73 sqM) Glucose 175 H (74-99) mg/dL Calcium 9.4 (8.4-10.2) mg/dL Magnesium 2.3 (1.6-2.3) mg/dL Total Bilirubin 0.7 (0.2-1.3) mg/dL AST 24 (17-59) U/L ALT 19 L (21-72) U/L Alkaline Phosphatase 67 (38-126) U/L Total Creatine Kinase 110 (55-170) U/L CK-MB (CK-2) 3.0 H (0.0-2.4) ng/mL CK-MB (CK-2) Rel Index 2.7 Troponin I <0.012 (0.000-0.034) ng/mL NT-Pro-B Natriuret Pep pg/mL Total Protein 7.6 (6.3-8.2) g/dL Albumin 4.4 (3.5-5.0) g/dL 08/24/18 08/24/18 Range/Units 09:22 09:22 WBC (3.8-10.6) k/uL RBC (4.30-5.90) m/uL Hgb (13.0-17.5) gm/dL Hct (39.0-53.0) % MCV (80.0-100.0) fL MCH (25.0-35.0) pg MCHC (31.0-37.0) g/dL RDW (11.5-15.5) % Plt Count (150-450) k/uL PT 10.7 (9.0-12.0) sec INR 1.1 (<1.2) APTT 25.1 (22.0-30.0) sec Sodium (137-145) mmol/L Potassium (3.5-5.1) mmol/L Chloride (98-107) mmol/L Carbon Dioxide (22-30) mmol/L Anion Gap mmol/L BUN (9-20) mg/dL Creatinine (0.66-1.25) mg/dL Est GFR (CKD-EPI)AfAm (>60 ml/min/1.73 sqM) Est GFR (CKD-EPI)NonAf (>60 ml/min/1.73 sqM) Glucose (74-99) mg/dL Calcium (8.4-10.2) mg/dL Magnesium (1.6-2.3) mg/dL Total Bilirubin (0.2-1.3) mg/dL AST (17-59) U/L ALT (21-72) U/L Alkaline Phosphatase (38-126) U/L Total Creatine Kinase (55-170) U/L CK-MB (CK-2) (0.0-2.4) ng/mL CK-MB (CK-2) Rel Index Troponin I (0.000-0.034) ng/mL NT-Pro-B Natriuret Pep 6610 pg/mL Total Protein (6.3-8.2) g/dL Albumin (3.5-5.0) g/dL Disposition Clinical Impression: COPD (chronic obstructive pulmonary disease) Disposition: ADMITTED IP TO THIS [facility] Condition: Fair Referrals: Neo Oden DO [Primary Care Provider] - 1-2 days Decision Time: 11:17
[2018-08-24 10:05] LABS: HCT 51.4 % (39.0-53.0); HGB 17.2 gm/dL (13.0-17.5); MCH 33.6 pg (25.0-35.0); MCHC 33.4 g/dL (31.0-37.0); MCV 100.7 fL (80.0-100.0); Mean Platelet Volume 8.9; Platelet Count 274 k/uL (150-450); RBC 5.11 m/uL (4.30-5.90); RDW 13.2 % (11.5-15.5); WBC 17.8 k/uL (3.8-10.6)
[2018-08-24 10:10] LABS: ALT 19 U/L (21-72); AST 24 U/L (17-59); Albumin 4.4 g/dL (3.5-5.0); Alkaline Phosphatase 67 U/L (38-126); Anion Gap 13 mmol/L; Blood Urea Nitrogen 9 mg/dL (9-20); Calcium 9.4 mg/dL (8.4-10.2); Carbon Dioxide 24 mmol/L (22-30); Chloride 106 mmol/L (98-107); Glucose 175 mg/dL (74-99); Magnesium 2.3 mg/dL (1.6-2.3); Potassium 5.3 mmol/L (3.5-5.1); Sodium 143 mmol/L (137-145); Total Bilirubin 0.7 mg/dL (0.2-1.3); Total Protein 7.6 g/dL (6.3-8.2)
--- NOTE | 2018-08-24 10:11 | XR ---
EXAMINATION TYPE: XR chest 1V portable DATE OF EXAM: 08/24/2018 COMPARISON: Prior chest x-ray 05/21/2018 HISTORY: Difficulty breathing TECHNIQUE: Single frontal view of the chest is obtained. FINDINGS: The heart is enlarged. Interstitium is increased. May be some underlying emphysematous justus nge, lucency present in the right upper lobe as compared to left. No evident pneumothorax or pleural effusion. Pulmonary vascularity and hollis show questionable perihilar vascular indistinctness. There i s overlying artifact. IMPRESSION: Correlate to exclude pulmonary venous hypertension and interstitial edema in a patient w ith pre-existing COPD. Follow-up suggested.
[2018-08-24 10:31] LABS: Creatine Kinase 110 U/L (55-170)
[2018-08-24 10:32] LABS: Lymphocytes # (M) 4.98 k/uL (1.0-4.8); Neutrophils % (M) 57 %
[2018-08-24 10:34] LABS: Band Neutrophils % 1 %; Monocytes # (M) 2.49 k/uL (0-1.0); Nucleated Red Blood Cells 0 /100 WBC (0-0); Total Cells Counted 100
[2018-08-24 10:38] LABS: INR 1.1 (<1.2); Partial Thromboplastin Time 25.1 sec (22.0-30.0); Prothrombin Time 10.7 sec (9.0-12.0)
[2018-08-24 10:44] LABS: Troponin I <0.012 ng/mL (0.000-0.034)
[2018-08-24] MEDS ORDERED: NALOXONE 0.4 MG/ML 1 ML VIAL IV PRN (11:17)
[2018-08-24 13:35] LABS: VBG PH 7.35 (7.31-7.41)
[2018-08-24] MEDS: MAGNESIUM SULFATE-D5W PMX 1 GM in DEXTROSE/WATER 1 100ML.BAG IVPB SCH ×2 (14:09→14:10)
[2018-08-24] MEDS ORDERED: ALBUTEROL NEBULIZED 2.5 MG/3 ML INHALATION PRN (16:16)
[2018-08-24] MEDS ORDERED: NITROGLYCERIN SL TABS 0.4 MG TAB SUBLINGUAL PRN (16:16)
[2018-08-24] MEDS ORDERED: IPRATROPIUM-ALBUTEROL 3 ML NEB INHALATION PRN (16:19)
[2018-08-24 16:48] LABS: Glucose,Whole Blood 219 mg/dL (75-99)
--- NOTE | 2018-08-24 16:55 | P.HPIM ---
History of Present Illness 67-year-old man with a history of COPD doesn't use any oxygen at home can start failure ejection fraction of 20-25% came in with the severe respiratory distress was given breathing treatments apparently was wheezing downstairs in ER and was on BiPAP with significant improvement in respiratory status with a dose of steroids inhalational treatments subsequently admitted to the hospital. When I evaluated the patient the patient appears to be mostly in heart failure wheezing significantly improved although he does have minimal wheezing in the exam patient stopped all his medication couple months ago doesn't follow with primary care physician. Patient is complaining of cough without any significant sputum production does have coronary artery disease with stents that were placed years ago as per the patient. Patient at home is supposed to be taking aspirin as well as Plavix although Plavix is probably not needed will not be resumed. Patient was started on oral steroids inhalational treatments patient was started on Lasix appear to be in heart failure exacerbation with elevated BNP although unable to assess JVD chest x-ray significant for pulmonary edema andpedaledemaonexam.Mildbibasilarcrackleswithexpiratorywheezing. His potassium is bit elevated because of which the will temporally hold off on lisinopril and Aldactone. Review of Systems REVIEW OF SYSTEMS: CONSTITUTIONAL: No fever, no malaise, no fatigue. HEENT: No recent visual problems or hearing problems. Denied any sore throat. CARDIOVASCULAR: No chest pain, orthopnea, PND, no palpitations, no syncope. PULMONARY: no hemoptysis. GASTROINTESTINAL: No diarrhea, no nausea, no vomiting, no abdominal pain. Normoactive bowel sounds. NEUROLOGICAL: No headaches, no weakness, no numbness. HEMATOLOGICAL: Denies any bleeding or petechiae. GENITOURINARY: Denies any burning micturition, frequency, or urgency. MUSCULOSKELETAL/RHEUMATOLOGICAL: Denies any joint pain, swelling, or any muscle pain. ENDOCRINE: Denies any polyuria or polydipsia. The rest of the 14-point review of systems is negative. Past Medical History Past Medical History: Coronary Artery Disease (CAD), Heart Failure, COPD, Deep Vein Thrombosis (DVT), GERD/Reflux, Hyperlipidemia, Hypertension, Myocardial Infarction (SC), Vascular Disorder Additional Past Medical History / Comment(s): Chronic hypoxic respiratory failure secondary to COPD, chronic hypercapnic respiratory failure secondary to COPD, hypertension, CHF with an ejection fraction of 20-25%, coronary artery disease with previous coronary intervention and stenting please refer to the catheterization from 2017, previous history of nonsustained V. tach, previous history of DVT, peripheral vascular disease with a previous fem-fem bypass surgery, hyperlipidemia, hypertension, restless leg syndrome, sciatica, left rotator cuff injury, chronic bilateral hip pain, previous SC last one being in September 2014 Last Myocardial Infarction Date:: 10/08/14 History of Any Multi-Drug Resistant Organisms: None Reported Past Surgical History: Appendectomy, Bowel Resection, Heart Catheterization With Stent, Hernia Repair Additional Past Surgical History / Comment(s): 12/01/14 R femfem bypass, Abdominal aortagram with bilateral extremity, HEART CATH WITH STENT SEP 2014 , HERNIA SURG X3. Past Anesthesia/Blood Transfusion Reactions: No Reported Reaction Additional Past Anesthesia/Blood Transfusion Reaction / Comment(s): stated never received any blood transfusions Date of Last Stent Placement:: 2013 Smoking Status: Current every day smoker - Past Family History Mother Family Medical History: Chest Pain / Angina, Diabetes Mellitus, Hypertension, Myocardial Infarction (SC) Additional Family Medical History / Comment(s): Mother of SC at age 84 yrs. Father Family Medical History: Asthma, Congestive Heart Failure (CHF), COPD, GERD/ Reflux, Hypertension, Myocardial Infarction (SC) Additional Family Medical History / Comment(s): Father had black lung disease. Medications and Allergies Home Medications Medication Instructions Recorded Confirmed Type rOPINIRole HCL [Requip] 2 mg PO HS 10/08/14 08/24/18 History Albuterol Sulfate [Proair Hfa] 2 puff INHALATION RT-Q6H PRN 03/04/17 08/24/18 History Clopidogrel [Plavix] 75 mg PO DAILY #30 tab 03/07/17 08/24/18 Rx Nitroglycerin Sl Tabs [Nitrostat] 0.4 mg SUBLINGUAL Q5M PRN #25 tab 03/07/17 Rx Aclidinium [place] [Tudorza 1 puff PO RT-BID 03/16/18 08/24/18 History Pressair] Budesonide-Formot 160-4.5 Mcg 2 puff INHALATION RT-BID 03/16/18 08/24/18 History [Symbicort 160-4.5 Mcg Inhaler] Aspirin 81 mg PO DAILY chew 03/22/18 08/24/18 Rx Furosemide [Lasix] 40 mg PO BID #60 tab 05/22/18 08/24/18 Rx Lisinopril [Zestril] 2.5 mg PO DAILY #30 tab 05/22/18 08/24/18 Rx Nicotine 21Mg/24Hr Patch [Habitrol] 1 patch TRANSDERM DAILY #30 patch 05/22/18 08/24/18 Rx Spironolactone [Aldactone] 25 mg PO DAILY #30 tab 05/22/18 08/24/18 Rx Atorvastatin [Lipitor] 20 mg PO HS 08/24/18 08/24/18 History Ipratropium-Albuterol Nebulize 3 ml INHALATION RT-Q6H PRN 08/24/18 08/24/18 History [Duoneb 0.5 mg-3 mg/3 ml Soln] Metoprolol Tartrate [Lopressor] 12.5 mg PO BID 08/24/18 08/24/18 History Allergies Allergy/AdvReac Type Severity Reaction Status Date / Time No Known Allergies Allergy Verified 08/24/18 10:23 Physical Exam Vitals: Vital Signs Temp Pulse Pulse Resp BP BP Pulse Ox 08/24/18 15:53 88 18 08/24/18 14:43 97.3 F L 88 18 131/74 93 L 08/24/18 14:19 134/83 08/24/18 12:00 97.0 F L 80 18 142/92 95 08/24/18 11:00 105 H 24 140/101 99 08/24/18 10:30 106 H 22 138/83 100 08/24/18 10:00 115 H 24 138/63 100 08/24/18 09:30 140 H 20 99 08/24/18 09:27 123 H 08/24/18 09:25 97.6 F 141 H 28 H 150/90 93 L 08/24/18 09:19 100 Intake and Output 08/24/18 08/24/18 08/24/18 06:59 14:59 22:59 Other: # Voids 1 Weight 77.111 kg PHYSICAL EXAMINATION: GENERAL: The patient is alert and oriented x3, not in any acute distress. Well developed, well nourished. HEENT: Pupils are round and equally reacting to light. EOMI. No scleral icterus. No conjunctival pallor. Normocephalic, atraumatic. No pharyngeal erythema. No thyromegaly. CARDIOVASCULAR: S1 and S2 present. No murmurs, rubs, or gallops. PULMONARY: Able expiratory wheezing bibasilar crackles unable to appreciate JVD no pedal edema ABDOMEN: Soft, nontender, nondistended, normoactive bowel sounds. No palpable organomegaly. MUSCULOSKELETAL: No joint swelling or deformity. EXTREMITIES: No cyanosis, clubbing, or pedal edema. NEUROLOGICAL: Gross neurological examination did not reveal any focal deficits. SKIN: No rashes. Results CBC & Chem 7: 08/24/18 09:22 08/24/18 09:22 Labs: Abnormal Lab Results - Last 24 Hours (Table) 08/24/18 08/24/18 08/24/18 Range/Units 09:22 09:22 09:22 WBC 17.8 H (3.8-10.6) k/uL MCV 100.7 H (80.0-100.0) fL Neutrophils # (Manual) 10.30 H (1.3-7.7) k/uL Lymphocytes # (Manual) 4.98 H (1.0-4.8) k/uL Monocytes # (Manual) 2.49 H (0-1.0) k/uL Potassium 5.3 H (3.5-5.1) mmol/L Glucose 175 H (74-99) mg/dL POC Glucose (mg/dL) (75-99) mg/dL ALT 19 L (21-72) U/L CK-MB (CK-2) 3.0 H (0.0-2.4) ng/mL 08/24/18 Range/Units 16:47 WBC (3.8-10.6) k/uL MCV (80.0-100.0) fL Neutrophils # (Manual) (1.3-7.7) k/uL Lymphocytes # (Manual) (1.0-4.8) k/uL Monocytes # (Manual) (0-1.0) k/uL Potassium (3.5-5.1) mmol/L Glucose (74-99) mg/dL POC Glucose (mg/dL) 219 H (75-99) mg/dL ALT (21-72) U/L CK-MB (CK-2) (0.0-2.4) ng/mL Assessment and Plan Plan: -Acute hypercapnic and hypoxic respiratory failure: Presently a BiPAP acute hypoxic respiratory failure secondary to CHF exacerbation at Respiratory failure secondary to COPD exacerbation patient will be started on IV Lasix, oral steroids, inhalational treatments doxycycline no evidence of pneumonia at this time -COPD with acute exacerbation -CHF chronic systolic dysfunction with acute exacerbation year for 25% -Coronary artery disease -Noncompliance with medications -Hyperlipidemia -Restless leg syndrome For above-mentioned chronic medical problems patient will be resumed and continued on appropriate home medications.
[2018-08-24] MEDS: INSULIN ASPART 100 UNIT/ML 1 ML 10 ML VIAL SQ SCH ×2 (17:21→21:17)
[2018-08-24] MEDS: ASPIRIN 81 MG PO SCH (17:24)
[2018-08-24] MEDS: IPRATROPIUM-ALBUTEROL 3 ML NEB INHALATION SCH (19:31)
[2018-08-24] MEDS: SYMBICORT 160-4.5 MCG INHALER INHALATION SCH (19:32)
[2018-08-24] MEDS: IPRATROPIUM 0.5 MG/2.5 ML NEBU INHALATION SCH (21:06)
[2018-08-24 21:18] LABS: Glucose,Whole Blood 124 mg/dL (75-99)
[2018-08-24] MEDS: FUROSEMIDE 10 MG/ML 4 ML VIAL IV SCH (21:21)
[2018-08-24] MEDS: DOXYCYCLINE 100 MG CAP PO SCH (21:22)
[2018-08-24] MEDS: METOPROLOL TARTRATE 12.5 MG TAB PO SCH (21:22)
[2018-08-24] MEDS: ATORVASTATIN 20 MG TAB PO SCH (21:28)
[2018-08-25 05:47] LABS: Glucose,Whole Blood 141 mg/dL (75-99)
[2018-08-25] MEDS: INSULIN ASPART 100 UNIT/ML 1 ML 10 ML VIAL SQ SCH ×4 (06:12→21:04)
[2018-08-25] MEDS: SYMBICORT 160-4.5 MCG INHALER INHALATION SCH ×2 (08:50→19:27)
[2018-08-25] MEDS: IPRATROPIUM-ALBUTEROL 3 ML NEB INHALATION SCH ×4 (08:50→19:28)
[2018-08-25] MEDS: IPRATROPIUM 0.5 MG/2.5 ML NEBU INHALATION SCH ×4 (08:50→19:28)
[2018-08-25] MEDS: predniSONE 20 MG TAB PO SCH (09:24)
[2018-08-25] MEDS: NICOTINE 21MG/24HR PATCH TRANSDERM SCH (09:25)
[2018-08-25] MEDS: ASPIRIN 81 MG PO SCH (09:25)
[2018-08-25] MEDS: FUROSEMIDE 10 MG/ML 4 ML VIAL IV SCH ×2 (09:25→21:40)
[2018-08-25] MEDS: METOPROLOL TARTRATE 12.5 MG TAB PO SCH ×2 (09:25→21:50)
[2018-08-25 11:25] LABS: Glucose,Whole Blood 117 mg/dL (75-99)
[2018-08-25] MEDS: DOXYCYCLINE 100 MG CAP PO SCH ×2 (11:53→21:51)
[2018-08-25 16:24] LABS: Glucose,Whole Blood 118 mg/dL (75-99)
[2018-08-25 20:44] LABS: Glucose,Whole Blood 128 mg/dL (75-99)
[2018-08-25] MEDS: ATORVASTATIN 20 MG TAB PO SCH (21:49)
[2018-08-26 06:42] LABS: Glucose,Whole Blood 137 mg/dL (75-99)
[2018-08-26] MEDS: INSULIN ASPART 100 UNIT/ML 1 ML 10 ML VIAL SQ SCH ×2 (07:03→12:34)
[2018-08-26] MEDS: SYMBICORT 160-4.5 MCG INHALER INHALATION SCH (07:56)
[2018-08-26] MEDS: IPRATROPIUM-ALBUTEROL 3 ML NEB INHALATION SCH ×3 (07:56→16:14)
[2018-08-26] MEDS: IPRATROPIUM 0.5 MG/2.5 ML NEBU INHALATION SCH ×3 (07:57→16:14)
[2018-08-26] MEDS: METOPROLOL TARTRATE 12.5 MG TAB PO SCH (08:12)
[2018-08-26] MEDS: ASPIRIN 81 MG PO SCH (08:12)
[2018-08-26] MEDS: FUROSEMIDE 10 MG/ML 4 ML VIAL IV SCH (08:12)
[2018-08-26] MEDS: predniSONE 20 MG TAB PO SCH (08:12)
[2018-08-26] MEDS: NICOTINE 21MG/24HR PATCH TRANSDERM SCH (08:13)
[2018-08-26 11:11] LABS: Glucose,Whole Blood 100 mg/dL (75-99)
[2018-08-26] MEDS: DOXYCYCLINE 100 MG CAP PO SCH (11:12)
[2018-08-26 11:30] VITALS: TEMP 97.1
[2018-08-26 11:35] VITALS: BP 111/60
[2018-08-26 12:13] LABS: Anion Gap 11 mmol/L; Blood Urea Nitrogen 21 mg/dL (9-20); Calcium 9.3 mg/dL (8.4-10.2); Carbon Dioxide 29 mmol/L (22-30); Chloride 99 mmol/L (98-107); Glucose 87 mg/dL (74-99); Potassium 4.2 mmol/L (3.5-5.1); Sodium 139 mmol/L (137-145)
[2018-08-26 12:21] VITALS: RESP 14
[2018-08-26 12:24] VITALS: PULSE 76
--- NOTE | 2018-08-26 15:01 | P.DS ---
Providers Date of admission: 08/24/18 11:17 Expected date of discharge: 08/26/18 Attending physician: Marifer Barillas Primary care physician: Neo Oden [facility] Course: Final Diagnoses: -Acute hypercapnic and hypoxic respiratory failure,secondary to CHF exacerbation ,COPD exacerbation patient will be started on IV Lasix, oral steroids, inhalational treatments doxycycline no evidence of pneumonia at this time -COPD with acute exacerbation -CHF chronic systolic dysfunction with acute exacerbation year for 25% -Coronary artery disease -Noncompliance with medications -Hyperlipidemia -Restless leg syndrome Hospital course: 67-year-old man with a history of COPD doesn't use any oxygen at home can start failure ejection fraction of 20-25% came in with the severe respiratory distress was given breathing treatments apparently was wheezing downstairs in ER and was on BiPAP with significant improvement in respiratory status with a dose of steroids inhalational treatments subsequently admitted to the hospital. When I evaluated the patient the patient appears to be mostly in heart failure wheezing significantly improved although he does have minimal wheezing in the exam patient stopped all his medication couple months ago doesn' t follow with primary care physician. Patient is complaining of cough without any significant sputum production does have coronary artery disease with stents that were placed years ago as per the patient. Patient at home is supposed to be taking aspirin as well as Plavix although Plavix is probably not needed will not be resumed. Patient was started on oral steroids inhalational treatments patient was started on Lasix appear to be in heart failure exacerbation with elevated BNP although unable to assess JVD chest x-ray significant for pulmonary edema andpedaledemaonexam.Mildbibasilarcrackleswithexpiratorywheezing. His potassium is bit elevated because of which the will temporally hold off on lisinopril and Aldactone. Diuresed well on Lasix,.maintained on steroids, nebulized bronchodilators .Significant clinical improvement. Medication compliance reinforced. Patient is being discharged home in stable condition with guarded prognosis. Case management assisting with outpatient Rxs. EXAMINATION: GENERAL: The patient is alert and oriented x3, not in any acute distress. HEENT: Pupils are round and equally reacting to light. EOMI. No scleral icterus. No conjunctival pallor. Normocephalic, atraumatic. CARDIOVASCULAR: S1 and S2 present. No murmurs, rubs, or gallops. PULMONARY: Able expiratory wheezing bibasilar crackles unable to appreciate JVD no pedal edema ABDOMEN: Soft, nontender, nondistended, normoactive bowel sounds. No palpable organomegaly. NEUROLOGICAL: Gross neurological examination did not reveal any focal deficits. The impression and plan of care has been dictated as directed. : I performed a history and examination of this patient, discussed the same with the dictator. I agree with the dictator's note ,documented as a scribe. Any additional findings or plans will be noted. Time taken: 35 minutes Patient Condition at Discharge: Stable Plan - Discharge Summary Discharge Rx Participant: No New Discharge Prescriptions: New Doxycycline [Vibramycin] 100 mg PO BID #10 cap predniSONE 10 mg PO DIRECTED #30 tab Continue rOPINIRole HCL [Requip] 2 mg PO HS Albuterol Sulfate [Proair Hfa] 2 puff INHALATION RT-Q6H PRN PRN Reason: Shortness Of Breath Nitroglycerin Sl Tabs [Nitrostat] 0.4 mg SUBLINGUAL Q5M PRN #25 tab PRN Reason: Chest Pain Clopidogrel [Plavix] 75 mg PO DAILY #30 tab Budesonide-Formot 160-4.5 Mcg [Symbicort 160-4.5 Mcg Inhaler] 2 puff INHALATION RT-BID Aclidinium [place] [Tudorza Pressair] 1 puff PO RT-BID Aspirin 81 mg PO DAILY chew Furosemide [Lasix] 40 mg PO BID #60 tab Nicotine 21Mg/24Hr Patch [Habitrol] 1 patch TRANSDERM DAILY #30 patch Atorvastatin [Lipitor] 20 mg PO HS Ipratropium-Albuterol Nebulize [Duoneb 0.5 mg-3 mg/3 ml Soln] 3 ml INHALATION RT-Q6H PRN PRN Reason: Shortness Of Breath Metoprolol Tartrate [Lopressor] 12.5 mg PO BID Discontinued Lisinopril [Zestril] 2.5 mg PO DAILY #30 tab Spironolactone [Aldactone] 25 mg PO DAILY #30 tab Discharge Medication List rOPINIRole HCL [Requip] 2 mg PO HS 10/08/14 [History] Albuterol Sulfate [Proair Hfa] 2 puff INHALATION RT-Q6H PRN 03/04/17 [History] Clopidogrel [Plavix] 75 mg PO DAILY #30 tab 03/07/17 [Rx] Nitroglycerin Sl Tabs [Nitrostat] 0.4 mg SUBLINGUAL Q5M PRN #25 tab 03/07/17 [Rx ] Aclidinium [place] [Tudorza Pressair] 1 puff PO RT-BID 03/16/18 [History] Budesonide-Formot 160-4.5 Mcg [Symbicort 160-4.5 Mcg Inhaler] 2 puff INHALATION RT-BID 03/16/18 [History] Aspirin 81 mg PO DAILY chew 03/22/18 [Rx] Furosemide [Lasix] 40 mg PO BID #60 tab 05/22/18 [Rx] Nicotine 21Mg/24Hr Patch [Habitrol] 1 patch TRANSDERM DAILY #30 patch 05/22/18 [ Rx] Atorvastatin [Lipitor] 20 mg PO HS 08/24/18 [History] Ipratropium-Albuterol Nebulize [Duoneb 0.5 mg-3 mg/3 ml Soln] 3 ml INHALATION RT -Q6H PRN 08/24/18 [History] Metoprolol Tartrate [Lopressor] 12.5 mg PO BID 08/24/18 [History] Doxycycline [Vibramycin] 100 mg PO BID #10 cap 08/26/18 [Rx] predniSONE 10 mg PO DIRECTED #30 tab 08/26/18 [Rx] Follow up Appointment(s)/Referral(s): Neo Oden DO [Primary Care Provider] - 09/01/18 10:15 am (Friday) Ambulatory/Diagnostic Orders: Complete Blood Count w/diff [LAB.AMB] Time Frame: 3 Days, Location: None Selected Activity/Diet/Wound Care/Special Instructions: O2 sat on room air after ambulation: Case management to assist with RXs
== END 2018-08-26 16:22 | disposition home or self-care (01) | DRG 291 ==
LOC: EC 09:14 → UNDOADMIN 11:17 → 3SCARD 11:17
PROVIDERS: ADMIT Hospitalist; ATTEND Hospitalist
PROC: 5A09357 Assistance with Respiratory Ventilation, Less than 24 Consecutive Hours, Continuous Positive Airway Pressure (ICD-10-PCS; principal; 2018-08-24)
DX: I11.0 Hypertensive heart disease with heart failure (principal); J96.21 Acute and chronic respiratory failure with hypoxia; J96.22 Acute and chronic respiratory failure with hypercapnia; J44.1 Chronic obstructive pulmonary disease with (acute) exacerbation; E87.2 Acidosis; I50.23 Acute on chronic systolic (congestive) heart failure; D53.9 Nutritional anemia, unspecified; D72.829 Elevated white blood cell count, unspecified; E78.5 Hyperlipidemia, unspecified; F17.210 Nicotine dependence, cigarettes, uncomplicated; G25.81 Restless legs syndrome; I25.10 Atherosclerotic heart disease of native coronary artery without angina pectoris; I25.2 Old myocardial infarction; I73.9 Peripheral vascular disease, unspecified; K21.9 Gastro-esophageal reflux disease without esophagitis; Z79.02 Long term (current) use of antithrombotics/antiplatelets; Z79.51 Long term (current) use of inhaled steroids; Z79.82 Long term (current) use of aspirin; Z79.899 Other long term (current) drug therapy; Z82.49 Family history of ischemic heart disease and other diseases of the circulatory system; Z82.5 Family history of asthma and other chronic lower respiratory diseases; Z83.3 Family history of diabetes mellitus; Z86.718 Personal history of other venous thrombosis and embolism; Z91.14 Patient's other noncompliance with medication regimen; Z95.5 Presence of coronary angioplasty implant and graft; E87.5 Hyperkalemia; T46.4X5A Adverse effect of angiotensin-converting-enzyme inhibitors, initial encounter; T50.0X5A Adverse effect of mineralocorticoids and their antagonists, initial encounter; Z90.49 Acquired absence of other specified parts of digestive tract
CPT/HCPCS: 36415; 71045; 80048; 80053; 82550; 82553; 82803; 83735; 83880; 84484; 85025; 85610; 85730; 93005; 94640; 94644; 94660; 94760; 96365; 96366; 96374; 99285

== ENCOUNTER 2018-09-09 20:40 | Inpatient (IN) | payer MEDICARE, OTHER ==
[2018-09-09] MEDS ORDERED: ALBUTEROL NEBULIZED 2.5 MG/3 ML INHALATION STA (20:52)
[2018-09-09] MEDS ORDERED: SUCCINYLCHOLINE CHLORIDE VIAL 200 MG/10 ML VIAL IV STA (20:52)
[2018-09-09] MEDS ORDERED: methylPREDNISolone SOD SUCCI 125 MG/2 ML VIAL IV STA (20:52)
[2018-09-09] MEDS ORDERED: IPRATROPIUM 0.5 MG/2.5 ML NEBU INHALATION STA (20:52)
[2018-09-09] MEDS ORDERED: MIDAZOLAM 1 MG/ML 5 ML VIAL IV STA (21:16)
[2018-09-09 21:24] LABS: ABG Base Excess -4.6 mmol/L; ABG HCO3 25 mmol/L (21-25); ABG Oxygen Saturation 99.8 % (94-97); ABG PO2 321 mmHg (83-108); ABG TCO2 27 mmol/L (19-24)
[2018-09-09 21:29] LABS: Anion Gap 13 mmol/L; Blood Urea Nitrogen 14 mg/dL (9-20); Calcium 9.3 mg/dL (8.4-10.2); Carbon Dioxide 20 mmol/L (22-30); Chloride 109 mmol/L (98-107); Glucose 209 mg/dL (74-99); Sodium 142 mmol/L (137-145); Total Bilirubin 0.8 mg/dL (0.2-1.3)
[2018-09-09 21:30] LABS: ABG PCO2 79 mmHg (35-45); ABG PH 7.11 (7.35-7.45)
[2018-09-09 21:34] LABS: HGB 16.5 gm/dL (13.0-17.5); Hypochromasia Marked; MCH 33.6 pg (25.0-35.0); MCHC 31.1 g/dL (31.0-37.0); Macrocytosis Moderate; Mean Platelet Volume 7.8; Platelet Count 194 k/uL (150-450); RBC 4.91 m/uL (4.30-5.90); RDW 13.3 % (11.5-15.5); WBC 17.6 k/uL (3.8-10.6)
--- NOTE | 2018-09-09 21:36 | XR ---
EXAMINATION TYPE: XR chest 1V portable DATE OF EXAM: 09/09/2018 COMPARISON: 08/24/2018 HISTORY: Difficulty breathing TECHNIQUE: Single frontal view of the chest is obtained. FINDINGS: There is no heart failure nor confluent pneumonic infiltrate. There is general coarsening of the lung markings. Heart appears enlarged. Endotracheal tube is 4.5 cm from the dino. There is n o pleural effusion. IMPRESSION: Pulmonary fibrosis. No change compared to last exam. Endotracheal tube is in good positi on. No gross heart failure.
[2018-09-09] MEDS ORDERED: AZITHROMYCIN 500 MG in SODIUM CHLORIDE 0.9% 250 ML IVPB STA (21:37)
[2018-09-09 21:38] LABS: INR 1.1 (<1.2); Partial Thromboplastin Time 23.8 sec (22.0-30.0); Prothrombin Time 10.4 sec (9.0-12.0)
[2018-09-09 21:39] LABS: Creatine Kinase MB 3.5 ng/mL (0.0-2.4)
[2018-09-09 21:41] LABS: Magnesium 2.5 mg/dL (1.6-2.3); Potassium 5.3 mmol/L (3.5-5.1); Total Protein 6.9 g/dL (6.3-8.2)
[2018-09-09 21:41] LABS: MCV 107.9 fL (80.0-100.0)
[2018-09-09 21:42] LABS: ALT 19 U/L (21-72); AST 68 U/L (17-59); Alkaline Phosphatase 75 U/L (38-126)
--- NOTE | 2018-09-09 21:42 | ED ---
General Adult HPI - General Chief complaint: Shortness of Breath Stated complaint: SYBIL Time Seen by Provider: 09/09/18 20:51 Source: EMS, RN notes reviewed Mode of arrival: EMS Limitations: altered mental status - History of Present Illness Initial comments: 67-year-old male history of COPD. EMS provides history, patient called for dyspnea. He is a long-standing history of COPD. According to EMS he has been out of his nebulized treatments for the past several days. Review the medical record does reveal patient was admitted to this institution with COPD exacerbation several weeks prior. EMS reports a complaint of dyspnea, no pain complaints by the patient. He was given 2 treatments of albuterol and steroids by EMS. During transport patient became progressively more obtunded in moderate progressing to severe respiratory distress. Upon arrival patient is in severe distress, cyanotic, severe respiratory distress with hypoxia in the 70s. - Related Data Home Medications Medication Instructions Recorded Confirmed rOPINIRole HCL [Requip] 2 mg PO HS 10/08/14 09/09/18 Albuterol Sulfate [Proair Hfa] 2 puff INHALATION RT-Q6H PRN 03/04/17 09/09/18 Aclidinium [place] [Tudorza 1 puff PO RT-BID 03/16/18 09/09/18 Pressair] Budesonide-Formot 160-4.5 Mcg 2 puff INHALATION RT-BID 03/16/18 09/09/18 [Symbicort 160-4.5 Mcg Inhaler] Ipratropium-Albuterol Nebulize 3 ml INHALATION RT-Q6H PRN 08/24/18 09/09/18 [Duoneb 0.5 mg-3 mg/3 ml Soln] Previous Rx's Medication Instructions Recorded Nitroglycerin Sl Tabs [Nitrostat] 0.4 mg SUBLINGUAL Q5M PRN #25 tab 03/07/17 Aspirin 81 mg PO DAILY chew 03/22/18 Nicotine 21Mg/24Hr Patch [Habitrol] 1 patch TRANSDERM DAILY #30 patch 05/22/18 Atorvastatin [Lipitor] 20 mg PO HS #30 tab 08/26/18 Clopidogrel Bisulfate [Plavix] 75 mg PO DAILY #30 tab 08/26/18 Furosemide [Lasix] 40 mg PO BID #60 tab 08/26/18 Metoprolol Tartrate [Lopressor] 12.5 mg PO BID #60 tab 08/26/18 Allergies Allergy/AdvReac Type Severity Reaction Status Date / Time No Known Allergies Allergy Verified 09/09/18 21:38 Review of Systems ROS Statement: Those systems with pertinent positive or pertinent negative responses have been documented in the HPI. ROS Other: All systems not noted in ROS Statement are negative. Past Medical History Past Medical History: Coronary Artery Disease (CAD), Heart Failure, COPD, Deep Vein Thrombosis (DVT), GERD/Reflux, Hyperlipidemia, Hypertension, Myocardial Infarction (ND), Vascular Disorder Additional Past Medical History / Comment(s): Chronic hypoxic respiratory failure secondary to COPD, chronic hypercapnic respiratory failure secondary to COPD, hypertension, CHF with an ejection fraction of 20-25%, coronary artery disease with previous coronary intervention and stenting please refer to the catheterization from 2017, previous history of nonsustained V. tach, previous history of DVT, peripheral vascular disease with a previous fem-fem bypass surgery, hyperlipidemia, hypertension, restless leg syndrome, sciatica, left rotator cuff injury, chronic bilateral hip pain, previous ND last one being in September 2014 Last Myocardial Infarction Date:: 10/08/14 History of Any Multi-Drug Resistant Organisms: None Reported Past Surgical History: Appendectomy, Bowel Resection, Heart Catheterization With Stent, Hernia Repair Additional Past Surgical History / Comment(s): 12/01/14 R femfem bypass, Abdominal aortagram with bilateral extremity, HEART CATH WITH STENT SEP 2014 , HERNIA SURG X3. Past Anesthesia/Blood Transfusion Reactions: No Reported Reaction Additional Past Anesthesia/Blood Transfusion Reaction / Comment(s): stated never received any blood transfusions Date of Last Stent Placement:: 2013 Past Psychological History: No Psychological Hx Reported Smoking Status: Current every day smoker - Past Family History Mother Family Medical History: Chest Pain / Angina, Diabetes Mellitus, Hypertension, Myocardial Infarction (ND) Additional Family Medical History / Comment(s): Mother of ND at age 84 yrs. Father Family Medical History: Asthma, Congestive Heart Failure (CHF), COPD, GERD/ Reflux, Hypertension, Myocardial Infarction (ND) Additional Family Medical History / Comment(s): Father had black lung disease. Course Vital Signs 09/09/18 09/09/18 09/09/18 20:42 20:50 21:00 Temperature 98.2 F Pulse Rate 155 H 144 H 138 H Respiratory 35 H 19 20 Rate Blood Pressure 175/119 175/119 169/106 O2 Sat by Pulse 100 100 Oximetry 09/09/18 09/09/18 09/09/18 21:08 21:10 21:20 Temperature Pulse Rate 117 H 116 H 128 H Respiratory 40 H 26 H Rate Blood Pressure 140/106 O2 Sat by Pulse 92 L Oximetry 09/09/18 09/09/18 09/09/18 21:25 21:30 21:35 Temperature Pulse Rate 123 H 117 H 112 H Respiratory 16 26 H Rate Blood Pressure 141/89 141/89 O2 Sat by Pulse 97 Oximetry 09/09/18 09/09/18 09/09/18 21:40 21:50 22:00 Temperature Pulse Rate 112 H 106 H 112 H Respiratory 26 H 26 H 25 H Rate Blood Pressure 109/73 115/73 113/88 O2 Sat by Pulse 96 100 100 Oximetry 09/09/18 09/09/18 09/09/18 22:10 22:20 22:30 Temperature Pulse Rate 107 H 104 H 101 H Respiratory 26 H 27 H 26 H Rate Blood Pressure 125/78 113/72 124/72 O2 Sat by Pulse 99 100 97 Oximetry 09/09/18 09/09/18 09/09/18 22:40 22:50 23:00 Temperature Pulse Rate 111 H 101 H 96 Respiratory 26 H 26 H 22 Rate Blood Pressure 120/73 110/73 133/79 O2 Sat by Pulse 96 97 95 Oximetry 09/09/18 09/09/18 09/09/18 23:10 23:25 23:38 Temperature Pulse Rate 98 103 H 105 H Respiratory 34 H 26 H 26 H Rate Blood Pressure 138/90 154/83 136/72 O2 Sat by Pulse 78 L 100 99 Oximetry 09/09/18 09/10/18 23:50 00:00 Temperature Pulse Rate 99 94 Respiratory 22 21 Rate Blood Pressure 128/78 128/78 O2 Sat by Pulse 96 Oximetry - Reevaluation(s) Reevaluation #1: 09/09/18 21:00 Severe respiratory distress.. EKG Findings - EKG Comments: EKG Findings:: EKG: Sinus tachycardia frequent PVC, rate of 138, HI interval 170 , QRS duration 120, QTC 390, no ST segment elevation, poor baseline. Procedures - Intubation Time Out Performed: Yes Sedative: Etomidate Mg Given: 20 Paralytic: Succinylcholine Mg Given: 100 Laryngoscope: Bettye Size: 3 Assist Device Used: Bougie ET Tube Size: 8 ET Tube Uncuffed: No Tube Secured Depth (cm): 22 Tube Secured Location: lips Tube Placement Confirmation: visualized tube passing through cords, equal breath sounds bilaterally, no breath sounds over epigastrium, confirmation by capnometry Patient Tolerated Procedure: well Intubation Complications: none Medical Decision Making - Medical Decision Making 67-year-old male presenting in severe respiratory arrest. Patient unable to contribute history. Initial call to EMS was for dyspnea. Patient is intubated upon arrival. Placed on mechanical ventilator. Chest x-ray obtained which is negative for focal pneumonia or acute findings. Patient is elevated white blood cell count 17.6, hemoglobin 16.5. Mild electrolytes abnormalities. Lactic acid is elevated 5.1 likely secondary to hypoxemia secondary to COPD exacerbation rather than sepsis. Troponin negative. D-dimer significantly elevated, CT angiography is obtained in the emergency department which is negative for pulmonary embolism. ABG shows pH 7.1 with CO2 of 80, at this time respiratory rate is increased. Repeat ABG will be obtained. Case discussed with both the admitting physician and Dr. Pringle. - Lab Data Result diagrams: 09/09/18 20:50 09/09/18 20:30 Lab Results 09/09/18 09/09/18 09/09/18 Range/Units 20:30 20:30 20:30 WBC (3.8-10.6) k/uL RBC (4.30-5.90) m/uL Hgb (13.0-17.5) gm/dL Hct (39.0-53.0) % MCV (80.0-100.0) fL MCH (25.0-35.0) pg MCHC (31.0-37.0) g/dL RDW (11.5-15.5) % Plt Count (150-450) k/uL Neutrophils % (Manual) % Lymphocytes % (Manual) % Monocytes % (Manual) % Eosinophils % (Manual) % Neutrophils # (Manual) (1.3-7.7) k/uL Lymphocytes # (Manual) (1.0-4.8) k/uL Monocytes # (Manual) (0-1.0) k/uL Eosinophils # (Manual) (0-0.7) k/uL Nucleated RBCs (0-0) /100 WBC Manual Slide Review Hypochromasia Macrocytosis PT (9.0-12.0) sec INR (<1.2) APTT (22.0-30.0) sec D-Dimer (<0.60) mg/L FEU Sample Site ABG pH (7.35-7.45) ABG pCO2 (35-45) mmHg ABG pO2 (83-108) mmHg ABG HCO3 (21-25) mmol/L ABG Total CO2 (19-24) mmol/L ABG O2 Saturation (94-97) % ABG Base Excess mmol/L Russel Test FiO2 % Sodium 142 (137-145) mmol/L Potassium 5.3 H (3.5-5.1) mmol/L Chloride 109 H (98-107) mmol/L Carbon Dioxide 20 L (22-30) mmol/L Anion Gap 13 mmol/L BUN 14 (9-20) mg/dL Creatinine 0.95 (0.66-1.25) mg/dL Est GFR (CKD-EPI)AfAm >90 (>60 ml/min/1.73 sqM) Est GFR (CKD-EPI)NonAf 83 (>60 ml/min/1.73 sqM) Glucose 209 H (74-99) mg/dL Plasma Lactic Acid Km (0.7-2.0) mmol/L Calcium 9.3 (8.4-10.2) mg/dL Magnesium 2.5 H (1.6-2.3) mg/dL Total Bilirubin 0.8 (0.2-1.3) mg/dL AST 68 H (17-59) U/L ALT 19 L (21-72) U/L Alkaline Phosphatase 75 (38-126) U/L Total Creatine Kinase 115 (55-170) U/L CK-MB (CK-2) 3.5 H (0.0-2.4) ng/mL CK-MB (CK-2) Rel Index 3.0 Troponin I 0.012 (0.000-0.034) ng/mL NT-Pro-B Natriuret Pep 1730 pg/mL Total Protein 6.9 (6.3-8.2) g/dL Albumin 4.0 (3.5-5.0) g/dL 09/09/18 09/09/18 09/09/18 Range/Units 20:30 20:50 20:50 WBC 17.6 H (3.8-10.6) k/uL RBC 4.91 (4.30-5.90) m/uL Hgb 16.5 (13.0-17.5) gm/dL Hct 53.0 (39.0-53.0) % MCV 107.9 H D (80.0-100.0) fL MCH 33.6 (25.0-35.0) pg MCHC 31.1 (31.0-37.0) g/dL RDW 13.3 (11.5-15.5) % Plt Count 194 (150-450) k/uL Neutrophils % (Manual) 40 % Lymphocytes % (Manual) 52 % Monocytes % (Manual) 7 % Eosinophils % (Manual) 1 % Neutrophils # (Manual) 7.04 (1.3-7.7) k/uL Lymphocytes # (Manual) 9.15 H (1.0-4.8) k/uL Monocytes # (Manual) 1.23 H (0-1.0) k/uL Eosinophils # (Manual) 0.18 (0-0.7) k/uL Nucleated RBCs 0 (0-0) /100 WBC Manual Slide Review Performed Hypochromasia Marked Macrocytosis Moderate PT 10.4 (9.0-12.0) sec INR 1.1 (<1.2) APTT 23.8 (22.0-30.0) sec D-Dimer (<0.60) mg/L FEU Sample Site ABG pH (7.35-7.45) ABG pCO2 (35-45) mmHg ABG pO2 (83-108) mmHg ABG HCO3 (21-25) mmol/L ABG Total CO2 (19-24) mmol/L ABG O2 Saturation (94-97) % ABG Base Excess mmol/L Russel Test FiO2 % Sodium (137-145) mmol/L Potassium (3.5-5.1) mmol/L Chloride (98-107) mmol/L Carbon Dioxide (22-30) mmol/L Anion Gap mmol/L BUN (9-20) mg/dL Creatinine (0.66-1.25) mg/dL Est GFR (CKD-EPI)AfAm (>60 ml/min/1.73 sqM) Est GFR (CKD-EPI)NonAf (>60 ml/min/1.73 sqM) Glucose (74-99) mg/dL Plasma Lactic Acid Km 5.1 H* (0.7-2.0) mmol/L Calcium (8.4-10.2) mg/dL Magnesium (1.6-2.3) mg/dL Total Bilirubin (0.2-1.3) mg/dL AST (17-59) U/L ALT (21-72) U/L Alkaline Phosphatase (38-126) U/L Total Creatine Kinase (55-170) U/L CK-MB (CK-2) (0.0-2.4) ng/mL CK-MB (CK-2) Rel Index Troponin I (0.000-0.034) ng/mL NT-Pro-B Natriuret Pep pg/mL Total Protein (6.3-8.2) g/dL Albumin (3.5-5.0) g/dL 09/09/18 09/09/18 Range/Units 20:50 21:15 WBC (3.8-10.6) k/uL RBC (4.30-5.90) m/uL Hgb (13.0-17.5) gm/dL Hct (39.0-53.0) % MCV (80.0-100.0) fL MCH (25.0-35.0) pg MCHC (31.0-37.0) g/dL RDW (11.5-15.5) % Plt Count (150-450) k/uL Neutrophils % (Manual) % Lymphocytes % (Manual) % Monocytes % (Manual) % Eosinophils % (Manual) % Neutrophils # (Manual) (1.3-7.7) k/uL Lymphocytes # (Manual) (1.0-4.8) k/uL Monocytes # (Manual) (0-1.0) k/uL Eosinophils # (Manual) (0-0.7) k/uL Nucleated RBCs (0-0) /100 WBC Manual Slide Review Hypochromasia Macrocytosis PT (9.0-12.0) sec INR (<1.2) APTT (22.0-30.0) sec D-Dimer 14.15 H (<0.60) mg/L FEU Sample Site rbrac ABG pH 7.11 L* (7.35-7.45) ABG pCO2 79 H* (35-45) mmHg ABG pO2 321 H (83-108) mmHg ABG HCO3 25 (21-25) mmol/L ABG Total CO2 27 H (19-24) mmol/L ABG O2 Saturation 99.8 H (94-97) % ABG Base Excess -4.6 mmol/L Russel Test yes FiO2 100 % Sodium (137-145) mmol/L Potassium (3.5-5.1) mmol/L Chloride (98-107) mmol/L Carbon Dioxide (22-30) mmol/L Anion Gap mmol/L BUN (9-20) mg/dL Creatinine (0.66-1.25) mg/dL Est GFR (CKD-EPI)AfAm (>60 ml/min/1.73 sqM) Est GFR (CKD-EPI)NonAf (>60 ml/min/1.73 sqM) Glucose (74-99) mg/dL Plasma Lactic Acid Km (0.7-2.0) mmol/L Calcium (8.4-10.2) mg/dL Magnesium (1.6-2.3) mg/dL Total Bilirubin (0.2-1.3) mg/dL AST (17-59) U/L ALT (21-72) U/L Alkaline Phosphatase (38-126) U/L Total Creatine Kinase (55-170) U/L CK-MB (CK-2) (0.0-2.4) ng/mL CK-MB (CK-2) Rel Index Troponin I (0.000-0.034) ng/mL NT-Pro-B Natriuret Pep pg/mL Total Protein (6.3-8.2) g/dL Albumin (3.5-5.0) g/dL Critical Care Time Critical Care Time: Yes Total Critical Care Time: 35 Disposition Clinical Impression: COPD (chronic obstructive pulmonary disease), Acute exacerbation of chronic obstructive airways disease, Respiratory failure Disposition: ADMITTED IP TO THIS [facility] Condition: Serious Is patient prescribed a controlled substance at d/c from ED?: No Referrals: Neo Oden DO [Primary Care Provider] - 1-2 days Decision to Admit Reason: Admit from EC Decision Date: 09/10/18 Decision Time: 00:12
[2018-09-09 21:44] LABS: Troponin I 0.012 ng/mL (0.000-0.034)
[2018-09-09 22:00] LABS: Eosinophils # (M) 0.18 k/uL (0-0.7); Lymphocytes # (M) 9.15 k/uL (1.0-4.8); Monocytes # (M) 1.23 k/uL (0-1.0); Neutrophils # (M) 7.04 k/uL (1.3-7.7); Neutrophils % (M) 40 %; Nucleated Red Blood Cells 0 /100 WBC (0-0); Total Cells Counted 100
[2018-09-09] MEDS: SODIUM CHLORIDE 0.9% 1,000 ML IV SCH (22:29)
[2018-09-09] MEDS ORDERED: SODIUM CHLORIDE 0.9% 500 ML 500 ML IV ONE (22:33)
[2018-09-09] MEDS: PROPOFOL 1,000 MG in EMPTY BAG 1 BAG IV SCH (23:10)
[2018-09-09] MEDS ORDERED: LORazepam 2 MG/ML INJ IV STA ×2 (23:19→23:54)
[2018-09-10] MEDS ORDERED: IPRATROPIUM-ALBUTEROL 3 ML NEB INHALATION PRN (00:05)
--- NOTE | 2018-09-10 00:05 | CT ---
EXAMINATION TYPE: CT angio chest DATE OF EXAM: 09/09/2018 11:54 PM COMPARISON: 03/16/2018 HISTORY: SYBIL CT DLP: 476.6 mGycm Automated exposure control for dose reduction was used. CONTRAST: CTA scan of the thorax is performed with IV Contrast, patient injected with 80mL mL of Isovue 370, pu lmonary embolism protocol. There are 3-D post processed images.. FINDINGS: Thoracic aorta is atheromatous. There is no evidence of aortic dissection. Endotracheal tube is noted the tip is 4 cm from the dino in fairly good position. There is no mediastinal adenopathy. There i s normal contrast opacification of the pulmonary arteries. I see no filling defect. There is coarse i nterstitial infiltrates in the lung bases. There is mild pleural thickening at the lung bases. There is no adrenal mass. There is nasogastric tube noted. There is diffuse pulmonary emphysema. There is s ome honeycomb pattern in the subpleural posterior lung kinney.. There is diffuse bullous emphysema in the upper lung kinney. There is increased interstitial infiltra laura at the lung bases compared to old exam. IMPRESSION: NO EVIDENCE OF PULMONARY EMBOLISM. PULMONARY INTERSTITIAL FIBROSIS. EMPHYSEMA. Stable 4.3 cm aneurysm of the ascending aorta. Atheromatous aorta.
[2018-09-10] MEDS ORDERED: ALBUTEROL NEBULIZED 2.5 MG/3 ML INHALATION PRN (00:09)
[2018-09-10] MEDS ORDERED: PROPOFOL 1,000 MG in EMPTY BAG 1 BAG IV SCH (01:30)
[2018-09-10 01:33] LABS: ABG Base Excess -0.1 mmol/L; ABG HCO3 26 mmol/L (21-25); ABG Oxygen Saturation 98.2 % (94-97); ABG PCO2 49 mmHg (35-45); ABG PH 7.33 (7.35-7.45); ABG PO2 115 mmHg (83-108); ABG TCO2 27 mmol/L (19-24)
[2018-09-10] MEDS ORDERED: ETOMIDATE 2 MG/ML 10 ML VIAL IVP STA (01:53)
[2018-09-10 03:28] LABS: Glucose,Whole Blood 152 mg/dL (75-99)
[2018-09-10] MEDS: PROPOFOL 1,000 MG in EMPTY BAG 1 BAG IV SCH ×5 (03:39→22:45)
[2018-09-10] MEDS ORDERED: NALOXONE 0.4 MG/ML 1 ML VIAL IV PRN (03:45)
[2018-09-10] MEDS: methylPREDNISolone SOD SUCCI 125 MG/2 ML VIAL IV SCH ×4 (03:57→18:38)
[2018-09-10 04:36] LABS: Appearance,Urine Clear (Clear); Bacteria,Urine Rare /hpf; Bilirubin,Urine Negative (Negative); Blood,Urine Negative (Negative); Color,Urine Yellow; Glucose,Urine (UA) Negative (Negative); Ketones,Urine Trace (Negative); Leukocyte Esterase,Urine Negative (Negative); Nitrite,Urine Negative (Negative); PH, Urine 5.5 (5.0-8.0); Protein,Urine 1+ (Negative); RBC,Urine 8 /hpf (0-5); Squamous Epithelial Cell,Urine <1 /hpf (0-4); Urobilinogen,Urine <2.0 mg/dL (<2.0); WBC,Urine 1 /hpf (0-5)
[2018-09-10 05:50] LABS: INR 1.1 (<1.2); Partial Thromboplastin Time 24.1 sec (22.0-30.0); Prothrombin Time 10.7 sec (9.0-12.0)
[2018-09-10 05:52] LABS: Anion Gap 6 mmol/L; Blood Urea Nitrogen 19 mg/dL (9-20); Calcium 8.7 mg/dL (8.4-10.2); Carbon Dioxide 21 mmol/L (22-30); Chloride 112 mmol/L (98-107); Glucose 158 mg/dL (74-99); Magnesium 2.2 mg/dL (1.6-2.3); Phosphorus 3.5 mg/dL (2.5-4.5); Potassium 4.3 mmol/L (3.5-5.1); Sodium 139 mmol/L (137-145)
[2018-09-10 06:01] LABS: Basophils % (A) 0 %; Eosinophils % (A) 0 %; HGB 14.4 gm/dL (13.0-17.5); Hypochromasia Slight; Lymphocytes # (A) 0.5 k/uL (1.0-4.8); Lymphocytes % (A) 4 %; MCH 31.8 pg (25.0-35.0); MCHC 30.6 g/dL (31.0-37.0); MCV 104.1 fL (80.0-100.0); Macrocytosis Slight; Mean Platelet Volume 8.1; Monocytes # (A) 0.2 k/uL (0-1.0); Monocytes % (A) 2 %; Neutrophils # (A) 12.3 k/uL (1.3-7.7); Neutrophils % (A) 94 %; Platelet Count 170 k/uL (150-450); RBC 4.51 m/uL (4.30-5.90); RDW 13.4 % (11.5-15.5); WBC 13.1 k/uL (3.8-10.6)
[2018-09-10 06:07] LABS: Glucose,Whole Blood 167 mg/dL (75-99)
[2018-09-10 06:30] LABS: Specific Gravity,Urine >1.050 (1.001-1.035)
[2018-09-10] MEDS: IPRATROPIUM-ALBUTEROL 3 ML NEB INHALATION SCH ×6 (06:56→23:29)
[2018-09-10] MEDS ORDERED: INSULIN ASPART 100 UNIT/ML 1 ML 10 ML VIAL SQ SCH (07:00)
--- NOTE | 2018-09-10 07:23 | XR ---
EXAMINATION TYPE: XR chest 1V DATE OF EXAM: 09/10/2018 COMPARISON: Prior chest x-ray and chest CT 09/09/2018 HISTORY: Intubated TECHNIQUE: Single frontal view of the chest is obtained. FINDINGS: Endotracheal and NG tube are overlying appropriate positions. Patient is rotated and there are overlying cardiac leads. No evident pneumothorax or pleural effusion. Heart size is stable. Inte rstitium is increased. Groundglass opacity suspected bilaterally. Ascending aorta appears prominently . IMPRESSION: Correlate for congestive heart failure or volume overload, there is interstitial lung di sease. There is underlying emphysema.
[2018-09-10] MEDS: CHLORHEXIDINE GLUCONATE 15 ML CUP MUCOUS MEM SCH ×2 (08:13→20:47)
[2018-09-10] MEDS: ENOXAPARIN 40 MG/0.4 ML SYRINGE SQ SCH (08:13)
[2018-09-10] MEDS: FAMOTIDINE 20 MG/2 ML VIAL IV SCH ×2 (08:13→20:46)
--- NOTE | 2018-09-10 11:50 | P.CNPUL ---
History of Present Illness Consult date: 09/10/18 Requesting physician: Sav Negron Reason for consult: other (Mechanical ventilator and critical care management) Chief complaint: Dyspnea History of present illness: This is a 67-year-old gentleman who follows with Dr. Oden as his primary care physician. He has a history of hypertension, congestive heart failure, systolic in nature with ejection fraction 20-25%, coronary artery disease with previous stent placement, nonsustained ventricular tachycardia, DVT, peripheral vascular disease with previous fem-fem bypass surgery, hyperlipidemia, hypertension, restless leg syndrome, chronic bilateral hip pain. He also has history of chronic hypoxic respiratory failure secondary to chronic obstructive pulmonary disease along with chronic hypercapnic respiratory failure secondary to the COPD. He has had ventilatory dependent respiratory failure in the past. EMS was called to his residence yesterday based on his worsening shortness of breath. He did state he was out of his nebulized treatments and inhalers for several days. In route the patient became severely obtunded and required urgent intubation and mechanical ventilatory support in the emergency room. Arterial blood gases at that time revealed a P O2 of 321, pCO2 of 79 and a pH of 7.1 100% FiO2. He is seen today in consultation in the intensive care unit. He is sedated on propofol at 50 mcg/kg/m. Settings assist-control mode with a rate of 26, tidal volume 500, FiO2 60% and a PEEP of 5. Current blood gases reveal a pO2 of 115, pCO2 49, pH 7.33 on 60% FiO2. Chest x-ray reveals evidence of fluid volume overload/congestive heart failure along with some interstitial lung disease and significant emphysema. CT angiogram ruled out pulmonary embolism. Sputum and urine cultures are pending. White count 13.1. Hemoglobin 14.4. Creatinine 0.76. Review of Systems ROS unobtainable: due to endotracheal tube Past Medical History Past Medical History: Coronary Artery Disease (CAD), Heart Failure, COPD, Deep Vein Thrombosis (DVT), GERD/Reflux, Hyperlipidemia, Hypertension, Myocardial Infarction ([place]), Vascular Disorder Additional Past Medical History / Comment(s): Chronic hypoxic respiratory failure secondary to COPD, chronic hypercapnic respiratory failure secondary to COPD, hypertension, CHF with an ejection fraction of 20-25%, coronary artery disease with previous coronary intervention and stenting please refer to the catheterization from 2017, previous history of nonsustained V. tach, previous history of DVT, peripheral vascular disease with a previous fem-fem bypass surgery, hyperlipidemia, hypertension, restless leg syndrome, sciatica, left rotator cuff injury, chronic bilateral hip pain, previous [place] last one being in September 2014 Last Myocardial Infarction Date:: 10/08/14 History of Any Multi-Drug Resistant Organisms: None Reported Past Surgical History: Appendectomy, Bowel Resection, Heart Catheterization With Stent, Hernia Repair Additional Past Surgical History / Comment(s): 12/01/14 R femfem bypass, Abdominal aortagram with bilateral extremity, HEART CATH WITH STENT SEP 2014 , HERNIA SURG X3. Past Anesthesia/Blood Transfusion Reactions: No Reported Reaction Additional Past Anesthesia/Blood Transfusion Reaction / Comment(s): stated never received any blood transfusions Date of Last Stent Placement:: February 2017 Past Psychological History: No Psychological Hx Reported Smoking Status: Current every day smoker Past Alcohol Use History: None Reported Additional Past Alcohol Use History / Comment(s): Pt started smoking in 1965 and is a ppd smoker. Past Drug Use History: Marijuana Additional Drug Use History / Comment(s): MARIJUANA 3-4 X a week. amount varies - Past Family History Mother Family Medical History: Chest Pain / Angina, Diabetes Mellitus, Hypertension, Myocardial Infarction ([place]) Additional Family Medical History / Comment(s): Mother of [place] at age 84 yrs. Father Family Medical History: Asthma, Congestive Heart Failure (CHF), COPD, GERD/ Reflux, Hypertension, Myocardial Infarction ([place]) Additional Family Medical History / Comment(s): Father had black lung disease. Medications and Allergies Home Medications Medication Instructions Recorded Confirmed Type rOPINIRole HCL [Requip] 2 mg PO HS 10/08/14 09/09/18 History Albuterol Sulfate [Proair Hfa] 2 puff INHALATION RT-Q6H PRN 03/04/17 09/09/18 History Nitroglycerin Sl Tabs [Nitrostat] 0.4 mg SUBLINGUAL Q5M PRN #25 tab 03/07/17 Rx Aclidinium [place] [Tudorza 1 puff PO RT-BID 03/16/18 09/09/18 History Pressair] Budesonide-Formot 160-4.5 Mcg 2 puff INHALATION RT-BID 03/16/18 09/09/18 History [Symbicort 160-4.5 Mcg Inhaler] Aspirin 81 mg PO DAILY chew 03/22/18 09/09/18 Rx Nicotine 21Mg/24Hr Patch [Habitrol] 1 patch TRANSDERM DAILY #30 patch 05/22/18 09/09/18 Rx Ipratropium-Albuterol Nebulize 3 ml INHALATION RT-Q6H PRN 08/24/18 09/09/18 History [Duoneb 0.5 mg-3 mg/3 ml Soln] Atorvastatin [Lipitor] 20 mg PO HS #30 tab 08/26/18 09/09/18 Rx Clopidogrel Bisulfate [Plavix] 75 mg PO DAILY #30 tab 08/26/18 09/09/18 Rx Furosemide [Lasix] 40 mg PO BID #60 tab 08/26/18 09/09/18 Rx Metoprolol Tartrate [Lopressor] 12.5 mg PO BID #60 tab 08/26/18 09/09/18 Rx Allergies Allergy/AdvReac Type Severity Reaction Status Date / Time No Known Allergies Allergy Verified 09/09/18 21:38 Physical Exam Vitals: Vital Signs Temp Pulse Resp BP Pulse Ox 09/10/18 11:00 77 38 H 128/75 96 09/10/18 10:30 84 24 134/80 97 09/10/18 10:00 84 43 H 117/70 96 09/10/18 09:30 76 41 H 120/76 95 09/10/18 09:00 71 26 H 131/80 95 09/10/18 08:30 77 26 H 121/71 98 09/10/18 08:00 98 F 70 26 H 113/70 95 09/10/18 07:30 67 26 H 115/71 95 09/10/18 07:15 68 09/10/18 07:01 72 09/10/18 07:00 69 26 H 111/73 96 09/10/18 06:40 68 26 H 95 09/10/18 06:20 72 26 H 134/84 95 09/10/18 06:00 78 26 H 132/82 96 09/10/18 05:40 78 26 H 136/80 96 09/10/18 05:20 78 26 H 116/79 96 09/10/18 05:00 76 26 H 108/71 96 09/10/18 04:40 73 26 H 104/67 95 09/10/18 04:15 73 26 H 102/73 95 09/10/18 04:00 97.8 F 80 26 H 110/84 95 09/10/18 03:49 80 26 H 94 L 09/10/18 03:15 126/81 09/10/18 03:00 84 26 H 125/88 99 09/10/18 02:45 82 26 H 99 09/10/18 02:30 86 26 H 120/83 98 09/10/18 02:15 86 26 H 135/80 98 09/10/18 02:00 87 26 H 131/87 98 09/10/18 01:45 88 26 H 125/82 97 09/10/18 01:30 91 21 121/77 97 09/10/18 01:15 93 26 H 120/79 98 09/10/18 01:00 96 26 H 122/83 96 09/10/18 00:45 98 26 H 121/82 96 09/10/18 00:30 98 21 118/100 99 09/10/18 00:15 101 H 26 H 128/78 94 L 09/10/18 00:08 100 21 128/78 94 L 09/10/18 00:00 94 21 128/78 96 09/09/18 23:50 99 22 128/78 09/09/18 23:38 105 H 26 H 136/72 99 09/09/18 23:25 103 H 26 H 154/83 100 09/09/18 23:10 98 34 H 138/90 78 L 09/09/18 23:00 96 22 133/79 95 09/09/18 22:50 101 H 26 H 110/73 97 09/09/18 22:40 111 H 26 H 120/73 96 09/09/18 22:30 101 H 26 H 124/72 97 09/09/18 22:20 104 H 27 H 113/72 100 09/09/18 22:10 107 H 26 H 125/78 99 09/09/18 22:00 112 H 25 H 113/88 100 09/09/18 21:50 106 H 26 H 115/73 100 09/09/18 21:40 112 H 26 H 109/73 96 09/09/18 21:35 112 H 09/09/18 21:30 117 H 26 H 141/89 97 09/09/18 21:25 123 H 16 141/89 09/09/18 21:20 128 H 26 H 92 L 09/09/18 21:10 116 H 40 H 140/106 09/09/18 21:08 117 H 09/09/18 21:00 138 H 20 169/106 09/09/18 20:50 144 H 19 175/119 100 09/09/18 20:42 98.2 F 155 H 35 H 175/119 100 Intake and Output 09/09/18 09/10/18 09/10/18 22:59 06:59 14:59 Intake Total 26.009 491.022 300 Output Total 230 205 Balance 26.009 261.022 95 Intake: IV 225 300 Sodium Chloride 0.9% 1, 225 300 000 ml @ 75 mls/hr IV . [id number] [facility] Rx#:[id number] Intake, IV Titration 26.009 266.022 Amount Propofol 1,000 mg In 26.009 73.991 Empty Bag 1 bag @ Titrate IV .Q0M [facility] Rx#: [id number] Propofol 1,000 mg In 192.031 Empty Bag 1 bag @ Titrate IV .Q0M [facility] Rx#: [id number] Output: Urine 230 205 Other: Voiding Method Indwelling Catheter Weight 83.915 kg 81.4 kg 81.4 kg GENERAL EXAM: Intubated, sedated, comfortable in no apparent distress. HEAD: Normocephalic. EYES: Normal reaction of pupils, equal size. NOSE: Clear with pink turbinates. THROAT: Oral endotracheal and gastric tube secured in place. No erythema or exudates. NECK: No masses, no JVD. CHEST: No chest wall deformity. LUNGS: Equal air entry with bilateral end expiratory wheeze. CVS: S1 and S2 normal with no audible murmur, regular rhythm. ABDOMEN: No hepatosplenomegaly, normal bowel sounds, no guarding or rigidity. SPINE: No scoliosis or deformity SKIN: No rashes CENTRAL NERVOUS SYSTEM: Sedated, tone is normal in all 4 extremities. EXTREMITIES: There is no peripheral edema. No clubbing, no cyanosis. Peripheral pulses are intact. Results - Laboratory Findings CBC and BMP: 09/10/18 04:52 09/10/18 04:52 ABG ABG pH 7.33 (7.35-7.45) L 09/10/18 01:33 ABG pCO2 49 mmHg (35-45) H 09/10/18 01:33 ABG pO2 115 mmHg (83-108) H 09/10/18 01:33 ABG O2 Saturation 98.2 % (94-97) H 09/10/18 01:33 PT/INR, D-dimer PT 10.7 sec (9.0-12.0) 09/10/18 04:52 INR 1.1 (<1.2) 09/10/18 04:52 D-Dimer 14.15 mg/L FEU (<0.60) H 09/09/18 20:50 Abnormal lab findings: Abnormal Labs 09/09/18 09/09/18 09/09/18 20:30 20:30 20:30 WBC MCV MCHC Neutrophils # Lymphocytes # Lymphocytes # (Manual) Monocytes # (Manual) D-Dimer ABG pH ABG pCO2 ABG pO2 ABG HCO3 ABG Total CO2 ABG O2 Saturation Potassium 5.3 H Chloride 109 H Carbon Dioxide 20 L Glucose 209 H POC Glucose (mg/dL) Plasma Lactic Acid Km 5.1 H* Magnesium 2.5 H AST 68 H ALT 19 L CK-MB (CK-2) 3.5 H Ur Specific [place] Urine Protein Urine Ketones Urine RBC Urine Bacteria 09/09/18 09/09/18 09/09/18 20:50 20:50 21:15 WBC 17.6 H MCV 107.9 H D MCHC Neutrophils # Lymphocytes # Lymphocytes # (Manual) 9.15 H Monocytes # (Manual) 1.23 H D-Dimer 14.15 H ABG pH 7.11 L* ABG pCO2 79 H* ABG pO2 321 H ABG HCO3 ABG Total CO2 27 H ABG O2 Saturation 99.8 H Potassium Chloride Carbon Dioxide Glucose POC Glucose (mg/dL) Plasma Lactic Acid Km Magnesium AST ALT CK-MB (CK-2) Ur Specific [place] Urine Protein Urine Ketones Urine RBC Urine Bacteria 09/10/18 09/10/18 09/10/18 01:33 03:25 04:15 WBC MCV MCHC Neutrophils # Lymphocytes # Lymphocytes # (Manual) Monocytes # (Manual) D-Dimer ABG pH 7.33 L ABG pCO2 49 H ABG pO2 115 H ABG HCO3 26 H ABG Total CO2 27 H ABG O2 Saturation 98.2 H Potassium Chloride Carbon Dioxide Glucose POC Glucose (mg/dL) 152 H Plasma Lactic Acid Km Magnesium AST ALT CK-MB (CK-2) Ur Specific [place] >1.050 H Urine Protein 1+ H Urine Ketones Trace H Urine RBC 8 H Urine Bacteria Rare H 09/10/18 09/10/18 09/10/18 04:52 04:52 05:40 WBC 13.1 H MCV 104.1 H MCHC 30.6 L Neutrophils # 12.3 H Lymphocytes # 0.5 L Lymphocytes # (Manual) Monocytes # (Manual) D-Dimer ABG pH ABG pCO2 ABG pO2 ABG HCO3 ABG Total CO2 ABG O2 Saturation Potassium Chloride 112 H Carbon Dioxide 21 L Glucose 158 H POC Glucose (mg/dL) 167 H Plasma Lactic Acid Km Magnesium AST ALT CK-MB (CK-2) Ur Specific [place] Urine Protein Urine Ketones Urine RBC Urine Bacteria - Diagnostic Findings Chest x-ray: image reviewed CT scan - chest: image reviewed Assessment and Plan Assessment: Impression: #1 Acute on chronic hypoxic and hypercapnic respiratory failure secondary to acute exacerbation of severe chronic obstructive pulmonary disease and an acute exacerbation of chronic systolic congestive heart failure requiring intubation and mechanical ventilatory support. #2 History of severe chronic obstructive pulmonary disease. #3 History of chronic tobacco dependence. #4 History of noncompliance with medication and follow-up. #5 Severe ischemic cardiomyopathy with ejection fraction 20-25%. #6 Previous history of ventilatory dependent respiratory failure. #7 Coronary artery disease with previous stent placements to the RCA in circumflex. #8 History of nonsustained ventricular tachycardia. #9 History of DVT. #10 History of peripheral vascular disease with previous fem-fem bypass surgery. #11 Hypertension. #12 Hyperlipidemia. Plan: The patient was seen and evaluated by Dr. Pringle. CT angiogram, chest x-ray, labs and ABGs were all reviewed. He did make some adjustments to the ventilator by increasing the flow to 75 and decreasing the respiratory rate 22. Decrease FiO2 to 50%. We will continue propofol for sedation. Consult dietary for tube feeding recommendations. Plan is to place central and arterial lines. Repeat ABGs and chest x-ray in the a.m. Plan for daily interruption of sedation. Daily weaning parameters. Continue DuoNeb inhalations every 4 hours, add Pulmicort and Perforomist inhalations, IV Solu- Medrol. Lovenox for DVT prophylaxis. Pepcid for GI prophylaxis. We will continue to follow and make further recommendations based on his clinical status. I, the cosigning physician, performed a history & physical examination of the patient. Lungs sounds with end expiratory wheeze Maintaining good O2 saturations in the 90s on the mechanical ventilator at 50% FiO2. I discussed the assessment and plan of care with my nurse practitioner, Luz Wilcox. I attest to the above consultation as dictated by her. Time with Patient: Greater than 30
[2018-09-10] MEDS: INSULIN ASPART 100 UNIT/ML 1 ML 10 ML VIAL SQ SCH ×2 (12:41→18:38)
[2018-09-10] MEDS: SODIUM CHLORIDE 0.9% 1,000 ML IV SCH (12:41)
[2018-09-10 12:59] LABS: Glucose,Whole Blood 131 mg/dL (75-99)
[2018-09-10] MEDS: CLOPIDOGREL 75 MG TAB PO SCH (17:10)
[2018-09-10] MEDS: ASPIRIN 81 MG PO SCH (17:11)
[2018-09-10] MEDS: NICOTINE 21MG/24HR PATCH TRANSDERM SCH (17:17)
--- NOTE | 2018-09-10 18:00 | HP ---
HISTORY AND PHYSICAL DATE OF ADMISSION: 09/10/2018. DATE OF SERVICE: 09/10/2018. PRESENTING COMPLAINT: Short of breath. HISTORY OF PRESENTING COMPLAINT: This is a 67-year-old patient who follows with Dr. Oden. Chronic stable medical conditions include peripheral artery disease, hyperlipidemia, restless legs syndrome, GERD. The patient has advanced COPD, also has CHF with known EF of 20 to 25%. The patient continued to smoke. EMS was called out because patient became more and more short of breath. The patient was brought to the hospital. The patient went into respiratory distress and had to be intubated, taken up to the ICU. Dr. Pringle from Critical Care was consulted. The patient remains on the ventilator with FiO2 15 and a PEEP of 5. Also has an NG tube and also on propofol. Telemetry shows sinus rhythm. No family is present. REVIEW OF SYSTEMS: Cannot be done as patient is intubated. PAST MEDICAL HISTORY: 1. COPD. 2. CHF, EF 20% to 25%. 3. Peripheral artery disease. 4. Hyperlipidemia. 5. Hypertension. 6. Restless legs syndrome. 7. Chronic rotator cuff injury. 8. GERD. 9. Coronary artery disease. 10.DVT. PAST SURGICAL HISTORY: Appendectomy, cardiac cath with stent in 2014, right fem-fem bypass, cardiac stent in 2013. SOCIAL HISTORY: Lives by himself. He was smoking up to half to a pack a day for close to over 50 years. FAMILY HISTORY: Of diabetes, hypertension, PR. HOME MEDICATIONS: 1. Requip 2 mg p.o. q.h.s. 2. Nitrostat 0.4 sublingual q.5 p.r.n. 3. Nicotine patch 21 mg. 4. Lopressor 12.5 p.o. b.i.d. 5. DuoNeb q.6h p.r.n. 6. Lasix 40 mg b.i.d. 7. Plavix 75 mg p.o. daily. 8. Symbicort 160/4.5, 2 puffs b.i.d. 9. Lipitor 20 mg q.h.s. 10.Aspirin 81 mg p.o. daily. 11.ProAir 2 puffs q.6h p.r.n. 12.Tudorza 1 puff b.i.d. ALLERGIES: None. PHYSICAL EXAMINATION: VITAL SIGNS: On examination vital signs on presentation Temp 98.2, pulse 156, respiration 25, blood pressure 135/109, pulse ox 100 percent on the ventilator. GENERAL APPEARANCE: Lying in bed intubated. EYES: Pupils equal. Conjunctivae normal. HEENT: External appearance of nose and ears normal. Oral cavity, endotracheal tube in place. NECK: JVD unable to assess. Mass not palpable. RESPIRATORY: Effort increased. LUNGS: Diminished breath sounds. Prolonged expiration. CARDIOVASCULAR: 1st and second sounds normal. No edema. ABDOMEN: Soft, nontender. Liver and spleen not palpable. LYMPHATICS: No lymph nodes palpable in the neck and axillae. PSYCHIATRY: Unable to assess, patient intubated. NEUROLOGICAL: Pupils are equal. Plantars are downgoing. Gag reflex is present. INVESTIGATIONS: White count 13.6, hemoglobin 16.5. Initial blood gas showed a pH of 7.11. Chest x-ray, film was personally reviewed by me, shows some venous prominence, possible infiltrates, could be fibrosis too. Chest CTA negative for PE, shows pulmonary interstitial fibrosis, 4.3 cm ascending aorta aneurysm. EKG shows some ST-segment changes, some PVCs. ASSESSMENT: 1. Acute severe chronic obstructive pulmonary disease exacerbation in a current smoker. 2. Chronic nicotine dependence patient is a cigarette smoker. 3. Possible acute on chronic congestive heart failure exacerbation from systolic dysfunction EF 10-20 percent. 4. Acute respiratory acidosis. 5. Acute hypoxic respiratory failure from chronic obstructive pulmonary disease exacerbation requiring ventilator assistance. 6. Coronary artery disease with stent in 2013. 7. Peripheral artery disease with previous fem-fem bypass. 8. Hyperlipidemia. 9. Essential hypertension with urgency. 10.Restless legs syndrome. 11.Chronic rotator cuff injury. 12.Gastroesophageal reflux disease. PLAN: Dr. Pringle was consulted from Critical Care. Patient admitted to the ICU on the ventilator, currently is on DuoNeb, inhaled Pulmicort, subcu Lovenox, Pepcid for GI prophylaxis, IV Solu-Medrol, IV propofol. The patient's home medications including Requip, nicotine patch, Lopressor, Plavix, aspirin is being resumed. Prognosis poor given his advanced pulmonary status. Will repeat labs today including proBNP and also have Cardiology follow the patient. MMODL / IJN: [id number] /
[2018-09-10 18:10] LABS: Anion Gap 2 mmol/L; Blood Urea Nitrogen 17 mg/dL (9-20); Calcium 8.7 mg/dL (8.4-10.2); Carbon Dioxide 25 mmol/L (22-30); Chloride 111 mmol/L (98-107); Glucose 142 mg/dL (74-99); Potassium 4.4 mmol/L (3.5-5.1); Sodium 138 mmol/L (137-145)
[2018-09-10 18:12] LABS: Glucose,Whole Blood 142 mg/dL (75-99)
[2018-09-10] MEDS: BUDESONIDE 1 MG/2 ML NEBU INHALATION SCH (20:23)
[2018-09-10] MEDS: FORMOTEROL FUMARATE 20 MCG/2 ML NEBU INHALATION SCH (20:23)
[2018-09-10] MEDS: METOPROLOL TARTRATE 12.5 MG TAB PO SCH (20:47)
--- NOTE | 2018-09-10 20:51 | OP ---
OPERATIVE REPORT PROCEDURE: Placement of a right radial arterial line. PREOPERATIVE DIAGNOSIS: Acute respiratory failure. POSTOPERATIVE DIAGNOSIS: Acute respiratory failure. ANESTHESIA USED: None deployed. PROCEDURE DESCRIPTION: The patient was placed in supine position. The area of the right wrist was prepared in a sterile fashion and drapes were applied. The right radial artery was palpated, cannulated, and a guidewire was placed. A Cook catheter was inserted over the guidewire, and the guidewire was removed. Good blood flow and good waveform were noted. No evidence of any immediate complications. The line was secured using 3.0 silk sutures. MMODL / IJN: [id number] /
[2018-09-10] MEDS ORDERED: ATORVASTATIN 20 MG TAB PO SCH (21:00)
[2018-09-11 01:30] LABS: Glucose,Whole Blood 148 mg/dL (75-99)
[2018-09-11] MEDS: INSULIN ASPART 100 UNIT/ML 1 ML 10 ML VIAL SQ SCH ×4 (01:30→18:17)
[2018-09-11] MEDS: methylPREDNISolone SOD SUCCI 125 MG/2 ML VIAL IV SCH ×4 (01:31→18:17)
[2018-09-11] MEDS: PROPOFOL 1,000 MG in EMPTY BAG 1 BAG IV SCH ×6 (02:22→22:12)
[2018-09-11] MEDS: SODIUM CHLORIDE 0.9% 1,000 ML IV SCH ×2 (02:23→15:08)
[2018-09-11] MEDS: IPRATROPIUM-ALBUTEROL 3 ML NEB INHALATION SCH ×6 (03:30→23:17)
[2018-09-11 05:03] LABS: Basophils % (A) 0 %; Eosinophils % (A) 0 %; HCT 38.5 % (39.0-53.0); HGB 11.9 gm/dL (13.0-17.5); Lymphocytes # (A) 0.6 k/uL (1.0-4.8); Lymphocytes % (A) 5 %; MCHC 30.9 g/dL (31.0-37.0); MCV 103.5 fL (80.0-100.0); Macrocytosis Slight; Mean Platelet Volume 7.7; Monocytes # (A) 0.3 k/uL (0-1.0); Monocytes % (A) 2 %; Neutrophils # (A) 11.9 k/uL (1.3-7.7); Neutrophils % (A) 92 %; Platelet Count 150 k/uL (150-450); RBC 3.72 m/uL (4.30-5.90); RDW 13.6 % (11.5-15.5); WBC 12.9 k/uL (3.8-10.6)
[2018-09-11 05:14] LABS: Anion Gap 2 mmol/L; Blood Urea Nitrogen 17 mg/dL (9-20); Calcium 8.6 mg/dL (8.4-10.2); Carbon Dioxide 25 mmol/L (22-30); Chloride 111 mmol/L (98-107); Glucose 148 mg/dL (74-99); Magnesium 2.3 mg/dL (1.6-2.3); Phosphorus 3.2 mg/dL (2.5-4.5); Potassium 4.3 mmol/L (3.5-5.1); Sodium 138 mmol/L (137-145)
[2018-09-11 07:33] LABS: Glucose,Whole Blood 155 mg/dL (75-99)
[2018-09-11] MEDS: CLOPIDOGREL 75 MG TAB PO SCH (08:03)
[2018-09-11] MEDS: ASPIRIN 81 MG PO SCH (08:03)
[2018-09-11] MEDS: FUROSEMIDE 10 MG/ML 2 ML VIAL IV SCH ×2 (08:03→20:35)
[2018-09-11] MEDS: CHLORHEXIDINE GLUCONATE 15 ML CUP MUCOUS MEM SCH ×2 (08:03→20:34)
[2018-09-11] MEDS: LISINOPRIL 2.5 MG TAB PO SCH ×2 (08:03→20:35)
[2018-09-11] MEDS: FAMOTIDINE 20 MG/2 ML VIAL IV SCH ×2 (08:03→20:34)
[2018-09-11] MEDS: METOPROLOL TARTRATE 12.5 MG TAB PO SCH ×2 (08:03→20:35)
[2018-09-11 08:04] LABS: ABG Base Excess 2.1 mmol/L; ABG HCO3 27 mmol/L (21-25); ABG PCO2 44 mmHg (35-45); ABG PH 7.39 (7.35-7.45); ABG PO2 93 mmHg (83-108); ABG TCO2 28 mmol/L (19-24)
[2018-09-11] MEDS: NICOTINE 21MG/24HR PATCH TRANSDERM SCH (08:04)
[2018-09-11] MEDS: ENOXAPARIN 40 MG/0.4 ML SYRINGE SQ SCH (08:04)
[2018-09-11] MEDS: FORMOTEROL FUMARATE 20 MCG/2 ML NEBU INHALATION SCH ×2 (08:21→19:31)
[2018-09-11] MEDS: BUDESONIDE 1 MG/2 ML NEBU INHALATION SCH ×2 (08:21→19:14)
--- NOTE | 2018-09-11 08:22 | CONS ---
CONSULTATION Mr. Dougherty is a 67-year-old male with known history of severe ischemic cardiomyopathy, history of severe chronic obstructive lung disease, prior history of noncompliance, history of peripheral vascular disease, who presented to the emergency room with symptoms of progressive dyspnea, with respiratory failure requiring mechanical ventilation. No history could be obtained from the patient. He is intubated, but reviewing the records, patient has a history of chronic hypoxic respiratory failure and chronic obstructive lung disease with hypercapnia. He had prior intubation. He has underwent percutaneous revascularization in the past and underwent stenting of the left circumflex. His left circumflex was totally occluded. He has underwent his first presentation was in September of 2014 and at that time, he had stenting of his proximal left circumflex by Dr. Susan Penn. His echocardiogram in September 2014 at that time reported ejection fraction of 35%-40%. He underwent repeat cardiac catheterization in October of the same year and had a patent first obtuse marginal branch. At that time, patent stent to the first obtuse marginal branch was occluded distal left circumflex and moderate disease in the large acute marginal branch. The LAD had no significant obstructive disease at that time. In November of 2014, he underwent angiography of his lower extremities and was found to have severe obstructive disease. A repeat echocardiogram in February 2017 revealed ejection fraction of 20%-25% and at that time, he underwent stenting of the ostial proximal first obtuse marginal branch and prior to that he underwent stenting of the proximal RCA. He had multiple admission to the hospital with recurrent dyspnea and respiratory failure. Repeat echo in March of this year revealed a severely impaired left ventricular systolic function. Since his admission, there was no evidence of tachycardia or ventricular ectopic activity. MEDICATION: At home included metoprolol tartrate 12.5 mg daily, Lasix, Plavix Lipitor, ProAir, . REVIEW OF SYSTEMS: Could not be obtained. PHYSICAL EXAMINATION: He is a 67-year-old male, intubated, sedated. Blood pressure 120/50 with a heart rate in the 70s. HEAD: Normocephalic. EYES: Sclerae anicteric. NECK: Good upstroke, no bruit. LUNGS: Decreased air exchange anteriorly. HEART: Regular rate and rhythm. S1, S2. No S3 with systolic murmur, no diastolic murmur, no rub. ABDOMEN: Soft. Positive bowel sounds, no organomegaly. EXTREMITIES: Decreased pulses with no significant edema. LAB DATA: Lab data revealed a hemoglobin of 11.9, white blood cell of 12.9, BUN and creatinine of 17.63. His NT proBNP is 2890, it was in the 5000 yesterday, yet he had a level in the 6000 on prior admission. His EKG shows sinus tachycardia with nonspecific ST-T wave changes and evidence of inferior myocardial infarction and occasional PVCs. His chest x-ray shows fluid overload. IMPRESSION: 1. Respiratory failure with hypercapnia, combination of exacerbation of chronic obstructive pulmonary disease and congestive heart failure with a known history of severely impaired left ventricular systolic function with systolic dysfunction. 2. History of coronary disease, status post percutaneous revascularization of the right coronary artery and the circumflex. 3. History of chronic tobacco use. 4. History of severe chronic obstructive lung disease. 5. Prior history of ventricular tachycardia. 6. Prior history of noncompliance. 7. History of peripheral vascular disease. RECOMMENDATION: From the cardiac standpoint, patient will receive diuretics. Will continue on his failure medication with the beta francesco. He will be continued on statin. I will add to his regimen an NOELLE inhibitor depending on his blood pressure as well as Aldactone. The prognosis remains guarded. Thank you for this consult. Will follow with you. MMODL / IJN: [id number] /
--- NOTE | 2018-09-11 09:41 | XR ---
EXAMINATION TYPE: XR chest 1V DATE OF EXAM: 09/11/2018 COMPARISON: 09/10/2018 INDICATION: Difficulty breathing TECHNIQUE: Single frontal view of the chest is obtained. FINDINGS: The heart size is normal. The pulmonary vasculature is upper limits of normal. The lungs are clear. Endotracheal tube tip is above the dino. Nasogastric tube transverses the thorax. There is silhouet ting of the diaphragm. Retrocardiac atelectasis should be considered. IMPRESSION: 1. Left lower lobe atelectasis. 2. Lines and catheters discussed above.
[2018-09-11] MEDS: LORazepam 2 MG/ML INJ IV PRN ×2 (11:02→18:17)
[2018-09-11 11:59] LABS: Glucose,Whole Blood 116 mg/dL (75-99)
--- NOTE | 2018-09-11 14:44 | P.PN ---
Subjective Progress Note Date: 09/11/18 Principal diagnosis: Acute hypoxic and hypercapnic respiratory failure secondary to severe end-stage COPD and chronic systolic congestive heart failure. This is a 67-year-old gentleman who follows with Dr. Oden as his primary care physician. He has a history of hypertension, congestive heart failure, systolic in nature with ejection fraction 20-25%, coronary artery disease with previous stent placement, nonsustained ventricular tachycardia, DVT, peripheral vascular disease with previous fem-fem bypass surgery, hyperlipidemia, hypertension, restless leg syndrome, chronic bilateral hip pain. He also has history of chronic hypoxic respiratory failure secondary to chronic obstructive pulmonary disease along with chronic hypercapnic respiratory failure secondary to the COPD. He has had ventilatory dependent respiratory failure in the past. EMS was called to his residence yesterday based on his worsening shortness of breath. He did state he was out of his nebulized treatments and inhalers for several days. In route the patient became severely obtunded and required urgent intubation and mechanical ventilatory support in the emergency room. Arterial blood gases at that time revealed a P O2 of 321, pCO2 of 79 and a pH of 7.1 100% FiO2. He is seen today in consultation in the intensive care unit. He is sedated on propofol at 50 mcg/kg/m. Settings assist-control mode with a rate of 26, tidal volume 500, FiO2 60% and a PEEP of 5. Current blood gases reveal a pO2 of 115, pCO2 49, pH 7.33 on 60% FiO2. Chest x-ray reveals evidence of fluid volume overload/congestive heart failure along with some interstitial lung disease and significant emphysema. CT angiogram ruled out pulmonary embolism. Sputum and urine cultures are pending. White count 13.1. Hemoglobin 14.4. Creatinine 0.76. Patient was reevaluated today on 09/11/2018, remains on mechanical ventilation, remains sedated on propofol. His ventilator settings are basically the same, unchanged, he is on 50% FiO2, 500 tidal volume, assist control rate of 22, and PEEP of 5. ABG this morning showed a pO2 of 93 pCO2 of 44 pH of 7.39. CBC is relatively normal. Basic metabolic profile is normal. Renal profile is normal. Chest x-ray is suspicious for left lower lobe atelectasis. I also suspect some component of mild interstitial edema noted on the chest x-ray this morning. All his meds and labs were reviewed. Patient was given a trial off propofol, and as the propofol wore off, patient was noted to be extremely agitated, and on examination he was quite wheezing. Hence placed back on propofol, and I have no plans to do any further weaning trials today. Objective - Vital Signs Vital signs: Vital Signs Temp 98.4 F 09/11/18 12:00 Pulse 96 09/11/18 14:01 Resp 22 09/11/18 14:01 BP 121/75 09/11/18 08:00 Pulse Ox 93 L 09/11/18 14:01 Intake & Output 09/10/18 09/11/18 09/11/18 18:59 06:59 18:59 Intake Total 1210 5909.773 7614.645 Output Total 477 373 1158 Balance 740 1028.319 -388.355 Weight 81.4 kg 81.4 kg Intake: IV 900 933 624 Pressure bag of 0.9 NaCl- 33 24 Sodium Chloride 0.9% 1, 900 900 600 000 ml @ 75 mls/hr IV . [id number] [facility] Rx#:[id number] Intake, IV Titration 200 288.319 177.645 Amount Propofol 1,000 mg In 200 288.319 177.645 Empty Bag 1 bag @ Titrate IV .Q0M [facility] Rx#: [id number] Tube Feeding 80 390 300 Other 30 90 90 Output: Urine 200 671 3599 Other: Voiding Method Indwelling Catheter Indwelling Catheter Indwelling Catheter ABP, PAP, CO, CI - Last Documented Arterial Blood Pressure 120/55 - Exam GENERAL EXAM: 67-year-old on mechanical ventilation. noted to be quite agitated off propofol, but sedated and in no distress on propofol. HEAD: Normocephalic. EYES: Normal reaction of pupils, equal size. NOSE: Clear with pink turbinates. THROAT: Orogastric tube and endotracheal tube are intact. Throat is clear. NECK: No masses, no JVD. CHEST: No chest wall deformity. LUNGS: Menest breath sound bilaterally, expiratory wheezes noted bilaterally especially off propofol. CVS: S1 and S2 normal with no audible murmur, regular rhythm. ABDOMEN: Soft nontender no megaly no rebound no guarding. Positive bowel sounds. SKIN: No rashes CENTRAL NERVOUS SYSTEM: Sedated, tone is normal in all 4 extremities. Patient was noted to be agitated off propofol. EXTREMITIES: There is no peripheral edema. No clubbing, no cyanosis. Peripheral pulses are intact. - Labs CBC & Chem 7: 09/11/18 04:43 09/11/18 04:43 Labs: Abnormal Lab Results - Last 24 Hours (Table) 09/10/18 09/10/18 09/11/18 Range/Units 17:40 18:07 01:26 WBC (3.8-10.6) k/uL RBC (4.30-5.90) m/uL Hgb (13.0-17.5) gm/dL Hct (39.0-53.0) % MCV (80.0-100.0) fL MCHC (31.0-37.0) g/dL Neutrophils # (1.3-7.7) k/uL Lymphocytes # (1.0-4.8) k/uL ABG HCO3 (21-25) mmol/L ABG Total CO2 (19-24) mmol/L ABG O2 Saturation (94-97) % Chloride 111 H (98-107) mmol/L Creatinine (0.66-1.25) mg/dL Glucose 142 H (74-99) mg/dL POC Glucose (mg/dL) 142 H 148 H (75-99) mg/dL 09/11/18 09/11/18 09/11/18 Range/Units 04:43 04:43 07:21 WBC 12.9 H (3.8-10.6) k/uL RBC 3.72 L (4.30-5.90) m/uL Hgb 11.9 L (13.0-17.5) gm/dL Hct 38.5 L (39.0-53.0) % MCV 103.5 H (80.0-100.0) fL MCHC 30.9 L (31.0-37.0) g/dL Neutrophils # 11.9 H (1.3-7.7) k/uL Lymphocytes # 0.6 L (1.0-4.8) k/uL ABG HCO3 (21-25) mmol/L ABG Total CO2 (19-24) mmol/L ABG O2 Saturation (94-97) % Chloride 111 H (98-107) mmol/L Creatinine 0.63 L (0.66-1.25) mg/dL Glucose 148 H (74-99) mg/dL POC Glucose (mg/dL) 155 H (75-99) mg/dL 09/11/18 09/11/18 Range/Units 08:00 11:56 WBC (3.8-10.6) k/uL RBC (4.30-5.90) m/uL Hgb (13.0-17.5) gm/dL Hct (39.0-53.0) % MCV (80.0-100.0) fL MCHC (31.0-37.0) g/dL Neutrophils # (1.3-7.7) k/uL Lymphocytes # (1.0-4.8) k/uL ABG HCO3 27 H (21-25) mmol/L ABG Total CO2 28 H (19-24) mmol/L ABG O2 Saturation 98.0 H (94-97) % Chloride (98-107) mmol/L Creatinine (0.66-1.25) mg/dL Glucose (74-99) mg/dL POC Glucose (mg/dL) 116 H (75-99) mg/dL Microbiology - Last 24 Hours (Table) 09/10/18 04:15 Urine Culture - Final Urine,Catheterized 09/09/18 20:30 Blood Culture - Preliminary Blood No Growth after 24 hours Assessment and Plan Assessment: #1 Acute on chronic hypoxic and hypercapnic respiratory failure secondary to acute exacerbation of severe chronic obstructive pulmonary disease and an acute exacerbation of chronic systolic congestive heart failure requiring intubation and mechanical ventilatory support. #2 History of severe chronic obstructive pulmonary disease. #3 History of chronic tobacco dependence. #4 History of noncompliance with medication and follow-up. #5 Severe ischemic cardiomyopathy with ejection fraction 20-25%. #6 Previous history of ventilatory dependent respiratory failure. #7 Coronary artery disease with previous stent placements to the RCA in circumflex. #8 History of nonsustained ventricular tachycardia. #9 History of DVT. #10 History of peripheral vascular disease with previous fem-fem bypass surgery. #11 Hypertension. #12 Hyperlipidemia. Recommendation: Continue present supportive care measures including ventilatory support, nutritional support, hemodynamic support as needed, antibiotics, bronchodilators, steroids, we'll continue daily interruption of sedation is as noted today, continue GI and DVT prophylaxis. Prognosis remains poor and guarded patient remains critically ill. He is known to have severe end-stage COPD. Critical care time is 32 minutes. Time with Patient: Greater than 30
[2018-09-11] MEDS: cefTRIAXone 2,000 MG in SODIUM CHLORIDE 0.9% 100 ML IVPB SCH (16:15)
[2018-09-11] MEDS: AZITHROMYCIN 500 MG in SODIUM CHLORIDE 0.9% 250 ML IVPB SCH (17:33)
[2018-09-11 18:13] LABS: Glucose,Whole Blood 154 mg/dL (75-99)
[2018-09-11 18:13] LABS: Glucose,Whole Blood 146 mg/dL (75-99)
[2018-09-11 20:15] LABS: Anion Gap 4 mmol/L; Blood Urea Nitrogen 20 mg/dL (9-20); Calcium 8.8 mg/dL (8.4-10.2); Carbon Dioxide 28 mmol/L (22-30); Chloride 111 mmol/L (98-107); Glucose 132 mg/dL (74-99); Magnesium 2.2 mg/dL (1.6-2.3); Potassium 3.9 mmol/L (3.5-5.1); Sodium 143 mmol/L (137-145)
[2018-09-11] MEDS: ATORVASTATIN 20 MG TAB PO SCH (20:35)
[2018-09-11] MEDS ORDERED: POTASSIUM BICARBONATE/CIT AC 20 MEQ TABLET.EFF NG-TUBE SCH (21:00)
--- NOTE | 2018-09-11 23:29 | PN ---
PROGRESS NOTE DATE OF SERVICE: 09/11/2018. PRESENTING COMPLAINT: Short of breath, intubated. INTERVAL HISTORY: This is a patient with advanced COPD, CHF, currently intubated, remains on the ventilator, FiO2 15 and a PEEP of 5. Also on propofol and earlier started on IV Lasix. Currently no family is present. Some tracheal secretions. REVIEW OF SYSTEMS: Cannot be done as patient is intubated. CURRENT MEDICATIONS: Reviewed and include DuoNeb, IV azithromycin, IV ceftriaxone, IV Solu-Medrol, IV propofol, IV Lasix 20 q.12 hours. PHYSICAL EXAMINATION: VITAL SIGNS: Temperature 98.4, pulse 84, respiratory 22, blood pressure 112/48, pulse ox 94 percent on ventilator. GENERAL APPEARANCE: Lying in bed, intubated. EYES: Pupils equal. Conjunctivae normal. HEENT: External appearance of nose and ears normal. Oral cavity, endotracheal tube in place. NECK: JVD unable to assess. Mass not palpable. RESPIRATORY: Effort increased. LUNGS: Decreased breath sounds. CARDIOVASCULAR: 1st and 2nd sounds normal. No edema. ABDOMEN: Soft, nontender. Liver and spleen not palpable. NEUROLOGICAL: Pupils are equal. Plantars are downgoing. Gag reflex present. INVESTIGATIONS: Potassium 3.9, BUN 20, creatinine 0.63. Chest x-ray film, personally reviewed by me, questionable venous prominence. ASSESSMENT: 1. Acute severe chronic obstructive pulmonary disease exacerbation in a current smoker, slow to respond. 2. Chronic nicotine dependence patient is a cigarette smoker. 3. Acute on chronic congestive heart failure exacerbation from systolic dysfunction, ejection fraction 20-25 percent on IV Lasix. 4. Acute respiratory acidosis. 5. Acute hypoxic respiratory failure from underlying chronic obstructive pulmonary disease requiring ventilator assistance. 6. Coronary artery disease with stent in 2013. 7. Peripheral artery disease previous fem-fem bypass. 8. Hyperlipidemia. 9. Essential hypertension with urgency. 10.Restless legs syndrome. 11.Chronic rotator cuff injury. 12.Gastroesophageal reflux disease. PLAN: Overall prognosis is guarded. Continue current medication and treatment plan. Supportive care with bronchodilators, steroids, antibiotics and IV Lasix. No family is present at the bedside. The patient is being followed by Pulmonary and Cardiology. Prognosis guarded. MMODL / IJN: [id number] /
[2018-09-12 00:02] LABS: Glucose,Whole Blood 127 mg/dL (75-99)
[2018-09-12] MEDS: INSULIN ASPART 100 UNIT/ML 1 ML 10 ML VIAL SQ SCH ×4 (00:20→17:33)
[2018-09-12] MEDS: methylPREDNISolone SOD SUCCI 125 MG/2 ML VIAL IV SCH ×4 (00:21→17:06)
[2018-09-12 00:30] LABS: Glucose,Whole Blood 133 mg/dL (75-99)
[2018-09-12] MEDS: PROPOFOL 1,000 MG in EMPTY BAG 1 BAG IV SCH ×7 (01:15→23:00)
[2018-09-12] MEDS: IPRATROPIUM-ALBUTEROL 3 ML NEB INHALATION SCH ×6 (03:32→23:25)
[2018-09-12 04:38] LABS: Basophils % (A) 0 %; Eosinophils % (A) 0 %; HGB 13.4 gm/dL (13.0-17.5); Lymphocytes # (A) 0.5 k/uL (1.0-4.8); Lymphocytes % (A) 3 %; MCH 31.9 pg (25.0-35.0); MCHC 31.2 g/dL (31.0-37.0); MCV 102.1 fL (80.0-100.0); Macrocytosis Slight; Mean Platelet Volume 8.3; Monocytes # (A) 0.4 k/uL (0-1.0); Monocytes % (A) 2 %; Neutrophils # (A) 16.2 k/uL (1.3-7.7); Neutrophils % (A) 94 %; Platelet Count 143 k/uL (150-450); RBC 4.21 m/uL (4.30-5.90); RDW 13.7 % (11.5-15.5); WBC 17.1 k/uL (3.8-10.6)
[2018-09-12 04:55] LABS: Anion Gap 2 mmol/L; Blood Urea Nitrogen 22 mg/dL (9-20); Calcium 8.6 mg/dL (8.4-10.2); Carbon Dioxide 29 mmol/L (22-30); Chloride 111 mmol/L (98-107); Glucose 169 mg/dL (74-99); Magnesium 2.2 mg/dL (1.6-2.3); Phosphorus 3.4 mg/dL (2.5-4.5); Potassium 3.9 mmol/L (3.5-5.1); Sodium 142 mmol/L (137-145)
[2018-09-12] MEDS ORDERED: POTASSIUM BICARBONATE/CIT AC 20 MEQ TABLET.EFF NG-TUBE SCH ×2 (06:00→23:00)
[2018-09-12 06:11] LABS: Glucose,Whole Blood 168 mg/dL (75-99)
--- NOTE | 2018-09-12 06:55 | XR ---
EXAMINATION TYPE: XR chest 1V DATE OF EXAM: 09/12/2018 HISTORY: mech vent. REFERENCE: Previous study dated 09/11/2018. FINDINGS: The patient is ET tube and NG tube remain in place, unchanged in appearance. The heart is enlarged. There is left basilar airspace disease. There is a left-sided effusion. There is underlying COPD. IMPRESSION: NO SIGNIFICANT INTERVAL CHANGE IN APPEARANCE OF THE CHEST.
[2018-09-12 07:17] LABS: ABG Base Excess 4.6 mmol/L; ABG HCO3 29 mmol/L (21-25); ABG Oxygen Saturation 95.6 % (94-97); ABG PCO2 47 mmHg (35-45); ABG PH 7.41 (7.35-7.45); ABG PO2 80 mmHg (83-108); ABG TCO2 31 mmol/L (19-24)
[2018-09-12] MEDS: FUROSEMIDE 10 MG/ML 2 ML VIAL IV SCH ×2 (07:55→20:19)
[2018-09-12] MEDS: CHLORHEXIDINE GLUCONATE 15 ML CUP MUCOUS MEM SCH ×2 (07:55→20:19)
[2018-09-12] MEDS: NICOTINE 21MG/24HR PATCH TRANSDERM SCH (07:56)
[2018-09-12] MEDS: ENOXAPARIN 40 MG/0.4 ML SYRINGE SQ SCH (07:56)
[2018-09-12] MEDS: LISINOPRIL 2.5 MG TAB PO SCH ×2 (07:56→20:19)
[2018-09-12] MEDS: METOPROLOL TARTRATE 12.5 MG TAB PO SCH ×2 (07:56→20:19)
[2018-09-12] MEDS: CLOPIDOGREL 75 MG TAB PO SCH (07:56)
[2018-09-12] MEDS: ASPIRIN 81 MG PO SCH (07:56)
[2018-09-12] MEDS: FAMOTIDINE 20 MG/2 ML VIAL IV SCH ×2 (07:56→20:19)
[2018-09-12] MEDS: SODIUM CHLORIDE 0.9% 1,000 ML IV SCH (07:57)
[2018-09-12] MEDS: FORMOTEROL FUMARATE 20 MCG/2 ML NEBU INHALATION SCH ×2 (08:16→19:20)
[2018-09-12] MEDS: BUDESONIDE 1 MG/2 ML NEBU INHALATION SCH ×2 (08:16→19:20)
--- NOTE | 2018-09-12 11:08 | PN ---
PROGRESS NOTE Mr. Dougherty is a 67-year-old male who presented with progressive respiratory distress. He has a history of severe ischemic cardiomyopathy, severe chronic obstructive lung disease, history of noncompliance. He has been intubated and sedated. He has a history of ejection fraction 35-40 percent. His ejection fraction is severely impaired. He has a prior stenting of the left circumflex and the right coronary artery was occluded distal left circumflex. He continues to be in sinus mechanism. Hemodynamically, he is stable. He continues to be at this point on aspirin once a day, Lipitor 40 mg daily, Plavix 75 mg daily, furosemide 20 mg IV q.12 hours, lisinopril 2.5 mg twice a day, metoprolol tartrate 12.5 mg twice a day. PHYSICAL EXAMINATION: Blood pressure 114/60 with a heart rate in the 60s. LUNGS: Clear anteriorly. HEART: Regular rate and rhythm, S1, S2. No S3. No rub with a systolic murmur. ABDOMEN: Soft. Positive bowel sounds. No organomegaly. Extremities: No significant edema. LAB DATA: BUN and creatinine of 22 and 0.65, potassium 3.9, hemoglobin of 13.4, white blood cell of 17.1. His chest x-ray revealed no significant changes. IMPRESSION: 1. Respiratory failure with exacerbation of severe chronic obstructive pulmonary disease in a patient with known history of severe chronic systolic dysfunction with severe ischemic cardiomyopathy. 2. History of coronary artery disease. 3. Chronic tobacco use. 4. Prior history of ventilator-dependent respiratory failure. 5. Prior history of ventricular arrhythmia. 6. History of peripheral vascular disease. 7. Hypertension. 8. Hyperlipidemia. RECOMMENDATIONS: At this time, we will continue supportive care. He is receiving antibiotics and treatment for his lung status by Dr. Pringle. Unfortunately the prognosis remains guarded. MMODL / IJN: [id number] /
--- NOTE | 2018-09-12 11:43 | P.PN ---
Subjective Progress Note Date: 09/12/18 Principal diagnosis: Acute hypoxic and hypercapnic respiratory failure secondary to severe end-stage COPD and chronic systolic congestive heart failure. This is a 67-year-old gentleman who follows with Dr. Oden as his primary care physician. He has a history of hypertension, congestive heart failure, systolic in nature with ejection fraction 20-25%, coronary artery disease with previous stent placement, nonsustained ventricular tachycardia, DVT, peripheral vascular disease with previous fem-fem bypass surgery, hyperlipidemia, hypertension, restless leg syndrome, chronic bilateral hip pain. He also has history of chronic hypoxic respiratory failure secondary to chronic obstructive pulmonary disease along with chronic hypercapnic respiratory failure secondary to the COPD. He has had ventilatory dependent respiratory failure in the past. EMS was called to his residence yesterday based on his worsening shortness of breath. He did state he was out of his nebulized treatments and inhalers for several days. In route the patient became severely obtunded and required urgent intubation and mechanical ventilatory support in the emergency room. Arterial blood gases at that time revealed a P O2 of 321, pCO2 of 79 and a pH of 7.1 100% FiO2. He is seen today in consultation in the intensive care unit. He is sedated on propofol at 50 mcg/kg/m. Settings assist-control mode with a rate of 26, tidal volume 500, FiO2 60% and a PEEP of 5. Current blood gases reveal a pO2 of 115, pCO2 49, pH 7.33 on 60% FiO2. Chest x-ray reveals evidence of fluid volume overload/congestive heart failure along with some interstitial lung disease and significant emphysema. CT angiogram ruled out pulmonary embolism. Sputum and urine cultures are pending. White count 13.1. Hemoglobin 14.4. Creatinine 0.76. Patient was reevaluated today on 09/11/2018, remains on mechanical ventilation, remains sedated on propofol. His ventilator settings are basically the same, unchanged, he is on 50% FiO2, 500 tidal volume, assist control rate of 22, and PEEP of 5. ABG this morning showed a pO2 of 93 pCO2 of 44 pH of 7.39. CBC is relatively normal. Basic metabolic profile is normal. Renal profile is normal. Chest x-ray is suspicious for left lower lobe atelectasis. I also suspect some component of mild interstitial edema noted on the chest x-ray this morning. All his meds and labs were reviewed. Patient was given a trial off propofol, and as the propofol wore off, patient was noted to be extremely agitated, and on examination he was quite wheezing. Hence placed back on propofol, and I have no plans to do any further weaning trials today. Patient was reevaluated today on 09/12/2018, remains on mechanical ventilation, presently on tidal volume of 500, assist control rate of 22, FiO2 of 50%, and PEEP of 5. His peak airway pressure is 37, and his plateau pressure is in the range of 15. ABG showed a pO2 of 80 0 pCO2 of 47 pH of 7.41. Basic metabolic profile is normal, CBC showed leukocytosis with WBC count of 17.1 hemoglobin is 13.4. Chest x-ray continues to show left lower lobe consolidation, suspect community-acquired pneumonia involving the left lower lobe. He remains on Zithromax and Rocephin empirically. Patient remains on propofol, sedated, he was given a sedation interruption trial yesterday, and he was extremely agitated , continued to have significant wheezing, hence no further weaning trials were attempted yesterday. Patient remains on nutritional support via enteral feeding. Not requiring any pressors he is hemodynamically stable. Objective - Vital Signs Vital signs: Vital Signs Temp 97.8 F 09/12/18 08:00 Pulse 88 09/12/18 11:19 Resp 30 H 09/12/18 11:00 BP 132/71 09/12/18 11:00 Pulse Ox 92 L 09/12/18 11:00 Intake & Output 09/11/18 09/12/18 09/12/18 18:59 06:59 18:59 Intake Total 5854.784 9358.259 828.774 Output Total 1925 1378 970 Balance -111.355 619.259 -141.226 Weight 81.4 kg 79.8 kg Intake: IV 936 936 390 Pressure bag of 0.9 NaCl- 36 36 15 Sodium Chloride 0.9% 1, 900 900 375 000 ml @ 75 mls/hr IV . [id number] [facility] Rx#:[id number] Intake, IV Titration 277.645 296.259 138.774 Amount Propofol 1,000 mg In 277.645 296.259 138.774 Empty Bag 1 bag @ Titrate IV .Q0M [facility] Rx#: [id number] Tube Feeding 480 675 270 Other 120 90 30 Output: Urine 4975 1378 970 Other: Voiding Method Indwelling Catheter Indwelling Catheter Indwelling Catheter ABP, PAP, CO, CI - Last Documented Arterial Blood Pressure 141/65 - Exam GENERAL EXAM: 67-year-old on mechanical ventilation. Sedated, on propofol. HEENT: PERRLA, EOMI, dry mucous membranes, no neck masses, no JVD, no thyromegaly, endotracheal tube and orogastric tube are intact. CHEST: No chest wall deformity. LUNGS: Diminished breaths sounds bilaterally, no rhonchi and no wheezes.. CVS: S1 and S2 normal with no audible murmur, regular rhythm. ABDOMEN: Soft nontender no megaly no rebound no guarding. Positive bowel sounds. SKIN: No rashes, no evidence of cellulitis. CENTRAL NERVOUS SYSTEM: Cannot be assessed, sedated, on propofol. EXTREMITIES: There is no peripheral edema. No clubbing, no cyanosis. Peripheral pulses are intact. Lymphatics: No lymphadenopathy. - Labs CBC & Chem 7: 09/12/18 04:11 09/12/18 04:11 Labs: Abnormal Lab Results - Last 24 Hours (Table) 09/11/18 09/11/18 09/11/18 Range/Units 11:56 17:51 18:10 WBC (3.8-10.6) k/uL RBC (4.30-5.90) m/uL MCV (80.0-100.0) fL Plt Count (150-450) k/uL Neutrophils # (1.3-7.7) k/uL Lymphocytes # (1.0-4.8) k/uL ABG pCO2 (35-45) mmHg ABG pO2 (83-108) mmHg ABG HCO3 (21-25) mmol/L ABG Total CO2 (19-24) mmol/L Chloride (98-107) mmol/L BUN (9-20) mg/dL Creatinine (0.66-1.25) mg/dL Glucose (74-99) mg/dL POC Glucose (mg/dL) 116 H 146 H 154 H (75-99) mg/dL 09/11/18 09/11/18 09/12/18 Range/Units 19:53 23:58 00:16 WBC (3.8-10.6) k/uL RBC (4.30-5.90) m/uL MCV (80.0-100.0) fL Plt Count (150-450) k/uL Neutrophils # (1.3-7.7) k/uL Lymphocytes # (1.0-4.8) k/uL ABG pCO2 (35-45) mmHg ABG pO2 (83-108) mmHg ABG HCO3 (21-25) mmol/L ABG Total CO2 (19-24) mmol/L Chloride 111 H (98-107) mmol/L BUN (9-20) mg/dL Creatinine 0.63 L (0.66-1.25) mg/dL Glucose 132 H (74-99) mg/dL POC Glucose (mg/dL) 127 H 133 H (75-99) mg/dL 09/12/18 09/12/18 09/12/18 Range/Units 04:11 04:11 06:08 WBC 17.1 H (3.8-10.6) k/uL RBC 4.21 L (4.30-5.90) m/uL MCV 102.1 H (80.0-100.0) fL Plt Count 143 L (150-450) k/uL Neutrophils # 16.2 H (1.3-7.7) k/uL Lymphocytes # 0.5 L (1.0-4.8) k/uL ABG pCO2 (35-45) mmHg ABG pO2 (83-108) mmHg ABG HCO3 (21-25) mmol/L ABG Total CO2 (19-24) mmol/L Chloride 111 H (98-107) mmol/L BUN 22 H (9-20) mg/dL Creatinine 0.65 L (0.66-1.25) mg/dL Glucose 169 H (74-99) mg/dL POC Glucose (mg/dL) 168 H (75-99) mg/dL 09/12/18 Range/Units 07:01 WBC (3.8-10.6) k/uL RBC (4.30-5.90) m/uL MCV (80.0-100.0) fL Plt Count (150-450) k/uL Neutrophils # (1.3-7.7) k/uL Lymphocytes # (1.0-4.8) k/uL ABG pCO2 47 H (35-45) mmHg ABG pO2 80 L (83-108) mmHg ABG HCO3 29 H (21-25) mmol/L ABG Total CO2 31 H (19-24) mmol/L Chloride (98-107) mmol/L BUN (9-20) mg/dL Creatinine (0.66-1.25) mg/dL Glucose (74-99) mg/dL POC Glucose (mg/dL) (75-99) mg/dL Microbiology - Last 24 Hours (Table) 09/09/18 21:39 Gram Stain - Final Sputum Sputum Culture - Final 09/09/18 20:30 Blood Culture - Preliminary Blood No Growth after 48 hours 09/10/18 04:15 Urine Culture - Final Urine,Catheterized Assessment and Plan Assessment: #1 Acute on chronic hypoxic and hypercapnic respiratory failure secondary to acute exacerbation of severe chronic obstructive pulmonary disease and an acute exacerbation of chronic systolic congestive heart failure requiring intubation and mechanical ventilatory support. #2 History of severe chronic obstructive pulmonary disease. #3 History of chronic tobacco dependence. #4 History of noncompliance with medication and follow-up. #5 Severe ischemic cardiomyopathy with ejection fraction 20-25%. #6 Previous history of ventilatory dependent respiratory failure. #7 Coronary artery disease with previous stent placements to the RCA in circumflex. #8 History of nonsustained ventricular tachycardia. #9 History of DVT. #10 History of peripheral vascular disease with previous fem-fem bypass surgery. #11 Hypertension. #12 Hyperlipidemia. #13 left lower lobe consolidation/atelectasis, I strongly suspect community- acquired pneumonia involving the left lower lobe. Hence we'll continue antibiotics/Rocephin and Zithromax. Recommendation: Continue present supportive care measures including ventilatory support, nutritional support, hemodynamic support as needed, antibiotics, bronchodilators, steroids, continue GI and DVT prophylaxis, continue daily weaning trials and daily interruption of sedation, at this point the patient does not seem to be quite ready for weaning and extubation. Prognosis is definitely guarded, patient remains critically ill in the ICU. Critical care time is 35 minutes. Time with Patient: Greater than 30
[2018-09-12 11:58] LABS: Glucose,Whole Blood 157 mg/dL (75-99)
[2018-09-12] MEDS: cefTRIAXone 2,000 MG in SODIUM CHLORIDE 0.9% 100 ML IVPB SCH (15:29)
[2018-09-12] MEDS: AZITHROMYCIN 500 MG in SODIUM CHLORIDE 0.9% 250 ML IVPB SCH (17:07)
[2018-09-12 17:36] LABS: Glucose,Whole Blood 126 mg/dL (75-99)
--- NOTE | 2018-09-12 18:11 | PN ---
PROGRESS NOTE DATE OF SERVICE: 09/12/2018. PRESENTING COMPLAINT: Intubated. INTERVAL HISTORY: This patient with advanced COPD, CHF. Remains in the ICU, intubated. FiO2 50 and a PEEP of 5. The patient remains on IV antibiotics, IV Solu-Medrol, propofol. REVIEW OF SYSTEMS: Cannot be done as patient is intubated. CURRENT MEDICATIONS: Reviewed that include DuoNeb, IV ceftriaxone, IV Solu-Medrol, IV propofol and IV Lasix 20 mg q.12. EXAMINATION: VITAL SIGNS: Temperature 97.9, pulse 82, respiration 24, blood pressure 120/81, pulse ox 92 percent on ventilator. GENERAL APPEARANCE: Lying in bed intubated. EYES: Pupils equal. Conjunctivae normal. HEENT: External appearance of nose and ears normal. Oral cavity, endotracheal tube in place. NECK: JVD unable to assess. Mass not palpable. RESPIRATORY: Effort increased. LUNGS: Decreased breath sounds. CARDIOVASCULAR: 1st and 2nd sounds normal. No edema. ABDOMEN: Soft, nontender. Liver and spleen not palpable. NEUROLOGICAL: Pupils are equal. Gag reflex is present. INVESTIGATIONS: White count 17.1, hemoglobin 13.4, platelets 143, potassium 3.9, BUN 22, creatinine 0.65. Accu-Cheks are noted. Chest x-ray film, personally reviewed by me shows questionable infiltrate. ASSESSMENT: 1. Acute severe chronic obstructive pulmonary disease exacerbation in a current smoker, slow to respond. 2. Chronic nicotine dependence patient is a cigarette smoker. 3. Acute on chronic congestive heart failure exacerbation from systolic dysfunction, ejection fraction 20-25 percent on IV Lasix. 4. Acute respiratory acidosis. 5. Acute hypoxic respiratory failure from underlying chronic obstructive pulmonary disease requiring ventilator assistance, slow to respond. 6. Coronary artery disease with stent in 2013. 7. Peripheral artery disease with previous fem-fem bypass. 8. Hyperlipidemia. 9. Essential hypertension. 10.Restless legs syndrome. 11.Chronic rotator cuff injury. 12.Gastroesophageal reflux disease. PLAN: Prognosis remains guarded. Continue medication and treatment plan including IV steroids, bronchodilators, IV Lasix and steroids. Remains on the ventilator. Also on propofol. No family at the bedside. MMODL / IJN: [id number] /
[2018-09-12] MEDS: LORazepam 2 MG/ML INJ IV PRN (18:51)
[2018-09-12] MEDS: ATORVASTATIN 20 MG TAB PO SCH (20:19)
[2018-09-12 23:31] LABS: Glucose,Whole Blood 158 mg/dL (75-99)
[2018-09-13] MEDS: SODIUM CHLORIDE 0.9% 1,000 ML IV SCH ×2 (00:15→10:51)
[2018-09-13] MEDS: PROPOFOL 1,000 MG in EMPTY BAG 1 BAG IV SCH ×6 (01:15→21:05)
[2018-09-13] MEDS: IPRATROPIUM-ALBUTEROL 3 ML NEB INHALATION SCH ×5 (03:18→19:25)
[2018-09-13] MEDS: INSULIN ASPART 100 UNIT/ML 1 ML 10 ML VIAL SQ SCH ×4 (04:14→17:18)
[2018-09-13] MEDS: methylPREDNISolone SOD SUCCI 125 MG/2 ML VIAL IV SCH ×4 (04:14→17:09)
[2018-09-13 05:02] LABS: Glucose,Whole Blood 156 mg/dL (75-99)
[2018-09-13 05:18] LABS: Basophils % (A) 0 %; Eosinophils # (A) 0.1 k/uL (0-0.7); Eosinophils % (A) 1 %; HCT 41.5 % (39.0-53.0); HGB 13.7 gm/dL (13.0-17.5); Lymphocytes # (A) 0.9 k/uL (1.0-4.8); Lymphocytes % (A) 6 %; MCH 33.9 pg (25.0-35.0); MCHC 32.9 g/dL (31.0-37.0); MCV 102.9 fL (80.0-100.0); Macrocytosis Slight; Mean Platelet Volume 8.3; Monocytes # (A) 0.7 k/uL (0-1.0); Monocytes % (A) 5 %; Neutrophils # (A) 12.8 k/uL (1.3-7.7); Neutrophils % (A) 87 %; Platelet Count 118 k/uL (150-450); RBC 4.03 m/uL (4.30-5.90); RDW 13.5 % (11.5-15.5); WBC 14.7 k/uL (3.8-10.6)
[2018-09-13 05:34] LABS: Anion Gap 1 mmol/L; Blood Urea Nitrogen 28 mg/dL (9-20); Calcium 8.6 mg/dL (8.4-10.2); Carbon Dioxide 32 mmol/L (22-30); Chloride 109 mmol/L (98-107); Glucose 143 mg/dL (74-99); Magnesium 2.3 mg/dL (1.6-2.3); Phosphorus 3.5 mg/dL (2.5-4.5); Potassium 4.1 mmol/L (3.5-5.1); Sodium 142 mmol/L (137-145)
[2018-09-13 07:09] LABS: ABG Base Excess 9.4 mmol/L; ABG HCO3 34 mmol/L (21-25); ABG Oxygen Saturation 95.3 % (94-97); ABG PCO2 49 mmHg (35-45); ABG PH 7.44 (7.35-7.45); ABG PO2 74 mmHg (83-108); ABG TCO2 35 mmol/L (19-24)
[2018-09-13] MEDS: BUDESONIDE 1 MG/2 ML NEBU INHALATION SCH ×2 (07:46→19:24)
[2018-09-13] MEDS: FORMOTEROL FUMARATE 20 MCG/2 ML NEBU INHALATION SCH ×2 (07:46→19:25)
[2018-09-13] MEDS: CHLORHEXIDINE GLUCONATE 15 ML CUP MUCOUS MEM SCH ×2 (08:07→21:25)
[2018-09-13] MEDS: CLOPIDOGREL 75 MG TAB PO SCH (08:08)
[2018-09-13] MEDS: LISINOPRIL 2.5 MG TAB PO SCH ×2 (08:08→21:25)
[2018-09-13] MEDS: FUROSEMIDE 10 MG/ML 2 ML VIAL IV SCH ×2 (08:08→21:25)
[2018-09-13] MEDS: ENOXAPARIN 40 MG/0.4 ML SYRINGE SQ SCH (08:08)
[2018-09-13] MEDS: FAMOTIDINE 20 MG/2 ML VIAL IV SCH ×2 (08:08→21:25)
[2018-09-13] MEDS: ASPIRIN 81 MG PO SCH (08:08)
[2018-09-13] MEDS: NICOTINE 21MG/24HR PATCH TRANSDERM SCH (08:08)
--- NOTE | 2018-09-13 09:05 | PN ---
PROGRESS NOTE HISTORY: Mr. Dougherty is a 67-year-old male with a known history of severe chronic obstructive lung disease, severe ischemic cardiomyopathy, prior history of noncompliance, who has been intubated and sedated. He has a history of prior percutaneous revascularization. He continues to be intubated. Hemodynamically, he is in sinus mechanism. He had PACs and PVCs yesterday, but no evidence of malignant tachyarrhythmia. His urine output has been stable. He has continued to be on aspirin, Lipitor 40 mg daily, Plavix 75 mg daily, insulin, Lasix 20 mg IV every12 hours, lisinopril 2.5 mg twice a day, metoprolol tartrate 12.5 mg twice a day. PHYSICAL EXAMINATION: Blood pressure 100/45, with a heart rate in 60s. LUNGS: Decreased air exchange, no wheezes. HEART: Regular rate and rhythm. S1, S2. No S3. No rub. ABDOMEN: Soft, positive bowel sounds. No organomegaly. EXTREMITIES: No significant edema. LAB DATA: BUN and creatinine 28 and 0.64, potassium 4.1 hemoglobin of 13.7. IMPRESSION: 1. Respiratory failure with exacerbation of chronic obstructive pulmonary disease and probably an element of congestive heart failure in a patient with known history of severe ischemic cardiomyopathy. 2. History of severe chronic obstructive lung disease. 3. Chronic tobacco use. 4. Severe ischemic cardiomyopathy. 5. Status post percutaneous revascularization. 6. Chronic tobacco use. 7. History of peripheral vascular disease. RECOMMENDATIONS: From the cardiac standpoint, we will continue present therapy. Dr. Pringle will address his ventilation status. Depending on his blood pressure, his medical regimen will be further adjusted. MMODL / IJN: [id number] /
[2018-09-13] MEDS: METOPROLOL TARTRATE 12.5 MG TAB PO SCH ×2 (09:19→21:25)
[2018-09-13] MEDS ORDERED: CISATRACURIUM 2 MG/ML 5 ML VIAL IV ONE (09:32)
[2018-09-13] MEDS ORDERED: HYDROmorphone 1 MG/ML 1 ML SYRINGE IVP STA (09:32)
--- NOTE | 2018-09-13 10:47 | P.PN ---
Subjective Progress Note Date: 09/13/18 Principal diagnosis: Acute hypoxic and hypercapnic respiratory failure secondary to severe end-stage COPD and chronic systolic congestive heart failure. This is a 67-year-old gentleman who follows with Dr. Oden as his primary care physician. He has a history of hypertension, congestive heart failure, systolic in nature with ejection fraction 20-25%, coronary artery disease with previous stent placement, nonsustained ventricular tachycardia, DVT, peripheral vascular disease with previous fem-fem bypass surgery, hyperlipidemia, hypertension, restless leg syndrome, chronic bilateral hip pain. He also has history of chronic hypoxic respiratory failure secondary to chronic obstructive pulmonary disease along with chronic hypercapnic respiratory failure secondary to the COPD. He has had ventilatory dependent respiratory failure in the past. EMS was called to his residence yesterday based on his worsening shortness of breath. He did state he was out of his nebulized treatments and inhalers for several days. In route the patient became severely obtunded and required urgent intubation and mechanical ventilatory support in the emergency room. Arterial blood gases at that time revealed a P O2 of 321, pCO2 of 79 and a pH of 7.1 100% FiO2. He is seen today in consultation in the intensive care unit. He is sedated on propofol at 50 mcg/kg/m. Settings assist-control mode with a rate of 26, tidal volume 500, FiO2 60% and a PEEP of 5. Current blood gases reveal a pO2 of 115, pCO2 49, pH 7.33 on 60% FiO2. Chest x-ray reveals evidence of fluid volume overload/congestive heart failure along with some interstitial lung disease and significant emphysema. CT angiogram ruled out pulmonary embolism. Sputum and urine cultures are pending. White count 13.1. Hemoglobin 14.4. Creatinine 0.76. Patient was reevaluated today on 09/11/2018, remains on mechanical ventilation, remains sedated on propofol. His ventilator settings are basically the same, unchanged, he is on 50% FiO2, 500 tidal volume, assist control rate of 22, and PEEP of 5. ABG this morning showed a pO2 of 93 pCO2 of 44 pH of 7.39. CBC is relatively normal. Basic metabolic profile is normal. Renal profile is normal. Chest x-ray is suspicious for left lower lobe atelectasis. I also suspect some component of mild interstitial edema noted on the chest x-ray this morning. All his meds and labs were reviewed. Patient was given a trial off propofol, and as the propofol wore off, patient was noted to be extremely agitated, and on examination he was quite wheezing. Hence placed back on propofol, and I have no plans to do any further weaning trials today. Patient was reevaluated today on 09/12/2018, remains on mechanical ventilation, presently on tidal volume of 500, assist control rate of 22, FiO2 of 50%, and PEEP of 5. His peak airway pressure is 37, and his plateau pressure is in the range of 15. ABG showed a pO2 of 80 0 pCO2 of 47 pH of 7.41. Basic metabolic profile is normal, CBC showed leukocytosis with WBC count of 17.1 hemoglobin is 13.4. Chest x-ray continues to show left lower lobe consolidation, suspect community-acquired pneumonia involving the left lower lobe. He remains on Zithromax and Rocephin empirically. Patient remains on propofol, sedated, he was given a sedation interruption trial yesterday, and he was extremely agitated , continued to have significant wheezing, hence no further weaning trials were attempted yesterday. Patient remains on nutritional support via enteral feeding. Not requiring any pressors he is hemodynamically stable. Reevaluated today on 09/2018, remains on mechanical ventilation, same ventilator settings as noted above. Chest x-ray continues to show significant consolidation in the left lower lobe, hence I have recommended bronchoscopy and bronchoalveolar lavage of the left lower lobe which was done today. Patient is still not ready to wean, continues to have significant rhonchi and wheezes on physical examination. Labs were reviewed, ABG showed a pO2 of 74 pCO2 of 49 pH of 7.44 and this is on 50% FiO2 WBC count is 14.7 hemoglobin is 13.7 electrolytes are normal bicarb is 32 renal profile is normal. Patient continues to be followed by cardiology for his severe ischemic cardiomyopathy and LV dysfunction. Objective - Vital Signs Vital signs: Vital Signs Temp 99.6 F 09/13/18 08:00 Pulse 100 09/13/18 10:00 Resp 22 09/13/18 10:00 BP 128/84 09/13/18 10:00 Pulse Ox 95 09/13/18 10:00 Intake & Output 09/12/18 09/13/18 09/13/18 19:59 06:59 18:59 Intake Total 492 Output Total 960 Balance -468 Weight Intake: IV 312 Pressure bag of 0.9 NaCl- 12 Sodium Chloride 0.9% 1, 300 000 ml @ 75 mls/hr IV . [id number] [facility] Rx#:[id number] Intake, IV Titration Amount Propofol 1,000 mg In Empty Bag 1 bag @ Titrate IV .Q0M [facility] Rx#: [id number] Tube Feeding 180 Other Output: Urine 960 Other: Voiding Method ABP, PAP, CO, CI - Last Documented Arterial Blood Pressure 119/57 - Exam GENERAL EXAM: 67-year-old on mechanical ventilation. Sedated, on propofol. However the patient is easily arousable by cutting down the dose of propofol, and he gets a bit agitated. HEENT: PERRLA, EOMI, dry mucous membranes, no neck masses, no JVD, no thyromegaly, endotracheal tube and orogastric tube are intact. CHEST: No chest wall deformity. LUNGS: Diminished breath sounds at the left base, rhonchi bilaterally noted. CVS: S1 and S2 normal with no audible murmur, regular rhythm. ABDOMEN: Soft nontender no megaly no rebound no guarding. Positive bowel sounds. SKIN: No rashes, no evidence of cellulitis. CENTRAL NERVOUS SYSTEM: Cannot be assessed, sedated, on propofol. EXTREMITIES: There is no peripheral edema. No clubbing, no cyanosis. Peripheral pulses are intact. Lymphatics: No lymphadenopathy. - Labs CBC & Chem 7: 09/13/18 04:57 09/13/18 04:57 Labs: Abnormal Lab Results - Last 24 Hours (Table) 09/12/18 09/12/18 09/12/18 Range/Units 11:54 17:32 23:28 WBC (3.8-10.6) k/uL RBC (4.30-5.90) m/uL MCV (80.0-100.0) fL Plt Count (150-450) k/uL Neutrophils # (1.3-7.7) k/uL Lymphocytes # (1.0-4.8) k/uL ABG pCO2 (35-45) mmHg ABG pO2 (83-108) mmHg ABG HCO3 (21-25) mmol/L ABG Total CO2 (19-24) mmol/L Chloride (98-107) mmol/L Carbon Dioxide (22-30) mmol/L BUN (9-20) mg/dL Creatinine (0.66-1.25) mg/dL Glucose (74-99) mg/dL POC Glucose (mg/dL) 157 H 126 H 158 H (75-99) mg/dL 09/13/18 09/13/18 09/13/18 Range/Units 04:57 04:57 05:00 WBC 14.7 H (3.8-10.6) k/uL RBC 4.03 L (4.30-5.90) m/uL MCV 102.9 H (80.0-100.0) fL Plt Count 118 L (150-450) k/uL Neutrophils # 12.8 H (1.3-7.7) k/uL Lymphocytes # 0.9 L (1.0-4.8) k/uL ABG pCO2 (35-45) mmHg ABG pO2 (83-108) mmHg ABG HCO3 (21-25) mmol/L ABG Total CO2 (19-24) mmol/L Chloride 109 H (98-107) mmol/L Carbon Dioxide 32 H (22-30) mmol/L BUN 28 H (9-20) mg/dL Creatinine 0.64 L (0.66-1.25) mg/dL Glucose 143 H (74-99) mg/dL POC Glucose (mg/dL) 156 H (75-99) mg/dL 09/13/18 Range/Units 07:07 WBC (3.8-10.6) k/uL RBC (4.30-5.90) m/uL MCV (80.0-100.0) fL Plt Count (150-450) k/uL Neutrophils # (1.3-7.7) k/uL Lymphocytes # (1.0-4.8) k/uL ABG pCO2 49 H (35-45) mmHg ABG pO2 74 L (83-108) mmHg ABG HCO3 34 H (21-25) mmol/L ABG Total CO2 35 H (19-24) mmol/L Chloride (98-107) mmol/L Carbon Dioxide (22-30) mmol/L BUN (9-20) mg/dL Creatinine (0.66-1.25) mg/dL Glucose (74-99) mg/dL POC Glucose (mg/dL) (75-99) mg/dL Microbiology - Last 24 Hours (Table) 09/09/18 20:30 Blood Culture - Preliminary Blood No Growth after 72 hours 09/09/18 21:39 Gram Stain - Final Sputum Sputum Culture - Final Assessment and Plan Assessment: #1 Acute on chronic hypoxic and hypercapnic respiratory failure secondary to acute exacerbation of severe chronic obstructive pulmonary disease and an acute exacerbation of chronic systolic congestive heart failure requiring intubation and mechanical ventilatory support. #2 History of severe chronic obstructive pulmonary disease. #3 History of chronic tobacco dependence. #4 History of noncompliance with medication and follow-up. #5 Severe ischemic cardiomyopathy with ejection fraction 20-25%. #6 Previous history of ventilatory dependent respiratory failure. #7 Coronary artery disease with previous stent placements to the RCA in circumflex. #8 History of nonsustained ventricular tachycardia. #9 History of DVT. #10 History of peripheral vascular disease with previous fem-fem bypass surgery. #11 Hypertension. #12 Hyperlipidemia. #13 left lower lobe consolidation/atelectasis, I strongly suspect community- acquired pneumonia involving the left lower lobe. Hence we'll continue antibiotics/Rocephin and Zithromax. #14 status post bronchoscopy and lavage of the left lower lobe on 09/2018. Cultures are pending. Recommendation: Continue present supportive care measures including ventilatory support, nutritional support, hemodynamic support as needed, antibiotics, bronchodilators, steroids, continue GI and DVT prophylaxis, continue daily weaning trials and daily interruption of sedation, no plans to extubate the patient today, he was bronchoscoped today, and we will address weaning trials and sedation interruption on a daily basis beginning tomorrow. Overall the patient may eventually require tracheostomy and PEG tube placement. Considering his ABG upon presentation, and considering his underlying COPD as well as and ischemic cardiomyopathy, I have a strong feeling that the patient may require tracheostomy. Prognosis remains poor and guarded, patient remains critically ill. We will continue to follow. Critical care time is 35 minutes not including the time for procedures/bronchoscopy. Time with Patient: Greater than 30
--- NOTE | 2018-09-13 10:50 | PCN ---
PROCEDURE NOTE OPERATIVE REPORT: Bronchoscopy and bronchoalveolar lavage of the left lower lobe. PREOPERATIVE DIAGNOSES: Acute respiratory failure secondary to chronic obstructive pulmonary disease, and left lower lobe consolidation consistent with left lower lobe pneumonia. POSTOPERATIVE DIAGNOSES: Acute respiratory failure secondary to chronic obstructive pulmonary disease and left lower lobe consolidation consistent with left lower lobe pneumonia. ANESTHESIA: Used the patient was already on propofol, he was given 1 mg of Dilaudid, and 7 mg of Nimbex prior to the procedure. DESCRIPTION OF PROCEDURE: The patient was already on mechanical ventilation, adapter was applied to the endotracheal tube. The patient was monitored via pulse oximetry, blood pressure was continuously monitored via arterial line. Heart rate was also monitored as well as the cardiac rhythm. After adequate sedation, the bronchoscope was advanced through the adapter of the endotracheal tube down to the area of the distal end of the endotracheal tube. Thorough examination was done of dino, right upper lobe, right upper lobe, right lower lobe left upper lobe lingula and left lower lobe. No evidence of any endobronchial tumors, however, there was evidence of purulent secretions noted in the left lower lobe, which I have lavaged and suctioned completely. Minimal secretions noted in the right lower lobe and these were also suctioned. The procedure was done, was well tolerated, no evidence of any immediate complications. The fluid we obtained was sent for different diagnostic studies. MMODL / IJN: [id number] /
[2018-09-13 11:39] LABS: Glucose,Whole Blood 106 mg/dL (75-99)
[2018-09-13 11:55] LABS: Color,BF Yellow
[2018-09-13 11:56] LABS: Appearance,BF Cloudy; Nucleated Cells, Body Fluid 13350 /uL; RBC, Body Fluid 200 /uL
[2018-09-13 11:58] LABS: Mononuclear WBC,Body Fluid 2 %; Polynuclear WBC,Body Fluid 98 %; Total Cells Counted,Body Fluid 100
--- NOTE | 2018-09-13 14:20 | XR ---
EXAMINATION TYPE: XR chest 1V DATE OF EXAM: 09/13/2018 HISTORY: mech vent. REFERENCE: Previous study dated 09/12/2018. FINDINGS: The patient is NG tube and ET tube remain in place, unchanged in appearance. Heart size upper limits of normal. There is left basilar airspace disease. There is a small left effu rupa. The overall appearance is very similar to previous. IMPRESSION: NO SIGNIFICANT INTERVAL CHANGE IN APPEARANCE OF THE CHEST.
[2018-09-13] MEDS: LORazepam 2 MG/ML INJ IV PRN (15:27)
[2018-09-13] MEDS: cefTRIAXone 2,000 MG in SODIUM CHLORIDE 0.9% 100 ML IVPB SCH (15:44)
[2018-09-13] MEDS: AZITHROMYCIN 500 MG in SODIUM CHLORIDE 0.9% 250 ML IVPB SCH (17:09)
[2018-09-13 17:18] LABS: Glucose,Whole Blood 142 mg/dL (75-99)
[2018-09-13] MEDS: ATORVASTATIN 20 MG TAB PO SCH (21:25)
--- NOTE | 2018-09-13 22:14 | PN ---
PROGRESS NOTE DATE OF SERVICE: 09/13/2018. PRESENTING COMPLAINT: Intubated. INTERVAL HISTORY: The patient with advanced COPD, CHF. Remains in the ICU. Intubated. FiO2 15 and a PEEP of 5. The patient is on IV antibiotics, IV Solu-Medrol, also on IV propofol and Levophed. Also having trach secretions. Also getting tube feeding. The patient remains to be critically ill. REVIEW OF SYSTEMS: Patient is intubated. CURRENT MEDICATIONS: Reviewed that include DuoNeb, IV azithromycin, IV ceftriaxone, IV Lasix, IV Solu- Medrol, IV propofol, IV saline. PHYSICAL EXAMINATION: VITAL SIGNS: On examination, afebrile. Pulse 62, respiration 20, blood pressure 100/56, pulse ox 91 percent on ventilator. GENERAL APPEARANCE: Lying in bed, intubated. EYES: Pupils equal. Conjunctivae normal. HEENT: External appearance of nose and ears normal. Oral cavity, endotracheal tube in place. NECK: JVD unable to assess. Mass not palpable. RESPIRATORY: Effort increased. LUNGS: Decreased breath sounds. CARDIOVASCULAR: 1st and 2nd sounds normal. No edema. ABDOMEN: Soft. Nontender. Liver and spleen not palpable. NEUROLOGICAL: Pupils are equal. INVESTIGATIONS: White count 14.7, hemoglobin 13.7, potassium 4.1, BUN 28, 0.64. Chest x-ray personally film reviewed by me shows inflate in the lower zone medial aspect on the left side. ASSESSMENT: 1. Acute severe chronic obstructive pulmonary disease exacerbation in a current smoker, slow to respond. 2. Chronic nicotine dependence, patient is a cigarette smoker. 3. Acute on chronic congestive heart exacerbation from systolic dysfunction EF 20% to 25%. On IV Lasix. 4. Acute respiratory acidosis. 5. Acute hypoxic respiratory failure from underlying chronic obstructive pulmonary disease requiring ventilator assistance, slow to respond. 6. Coronary artery disease with stent in 2013. 7. Peripheral artery disease with previous fem-fem bypass. 8. Hyperlipidemia. 9. Essential hypertension. 10.Restless legs syndrome. 11.Chronic rotator cuff injury. 12.Gastroesophageal reflux disease. PLAN: Overall prognosis remains not good. The patient continues on IV steroids, IV antibiotics, bronchodilators, IV Lasix, steroids, endotracheal tube was being adjusted. The patient remains on propofol. The patient remains critically ill. MMODL / IJN: [id number] /
[2018-09-14 00:03] LABS: Glucose,Whole Blood 124 mg/dL (75-99)
[2018-09-14] MEDS: methylPREDNISolone SOD SUCCI 125 MG/2 ML VIAL IV SCH ×4 (00:03→18:19)
[2018-09-14] MEDS: INSULIN ASPART 100 UNIT/ML 1 ML 10 ML VIAL SQ SCH ×4 (00:04→18:16)
[2018-09-14] MEDS: PROPOFOL 1,000 MG in EMPTY BAG 1 BAG IV SCH ×6 (00:05→23:06)
[2018-09-14] MEDS: IPRATROPIUM-ALBUTEROL 3 ML NEB INHALATION SCH ×6 (00:31→19:11)
[2018-09-14] MEDS: SODIUM CHLORIDE 0.9% 1,000 ML IV SCH ×3 (01:09→22:25)
[2018-09-14 05:02] LABS: ABG Base Excess 10.2 mmol/L; ABG HCO3 34 mmol/L (21-25); ABG Oxygen Saturation 91.9 % (94-97); ABG PCO2 50 mmHg (35-45); ABG PH 7.44 (7.35-7.45); ABG PO2 62 mmHg (83-108); ABG TCO2 36 mmol/L (19-24)
[2018-09-14 05:37] LABS: Basophils % (A) 0 %; Eosinophils % (A) 0 %; HCT 44.3 % (39.0-53.0); HGB 13.8 gm/dL (13.0-17.5); Lymphocytes # (A) 0.5 k/uL (1.0-4.8); Lymphocytes % (A) 5 %; MCH 31.9 pg (25.0-35.0); MCHC 31.1 g/dL (31.0-37.0); MCV 102.7 fL (80.0-100.0); Macrocytosis Slight; Mean Platelet Volume 8.3; Monocytes # (A) 0.3 k/uL (0-1.0); Monocytes % (A) 3 %; Neutrophils # (A) 9.5 k/uL (1.3-7.7); Neutrophils % (A) 91 %; Platelet Count 125 k/uL (150-450); RBC 4.31 m/uL (4.30-5.90); RDW 13.4 % (11.5-15.5); WBC 10.4 k/uL (3.8-10.6)
[2018-09-14 05:43] LABS: Anion Gap 2 mmol/L; Blood Urea Nitrogen 35 mg/dL (9-20); Calcium 8.7 mg/dL (8.4-10.2); Carbon Dioxide 33 mmol/L (22-30); Chloride 107 mmol/L (98-107); Glucose 177 mg/dL (74-99); Magnesium 2.4 mg/dL (1.6-2.3); Phosphorus 3.8 mg/dL (2.5-4.5); Potassium 3.8 mmol/L (3.5-5.1); Sodium 142 mmol/L (137-145)
[2018-09-14 06:37] LABS: Glucose,Whole Blood 183 mg/dL (75-99)
--- NOTE | 2018-09-14 07:11 | XR ---
EXAMINATION TYPE: XR chest 1V DATE OF EXAM: 09/14/2018 HISTORY: Shortness of breath. COMPARISON: 09/13/2018 TECHNIQUE: Single view of the chest is submitted. FINDINGS: Demonstrated are scattered senescent parenchymal change. Endotracheal and NG tubes are unchanged in position. Left lower lobe atelectasis or infiltrate with small effusion is stable. The heart is stable. Hilar and mediastinal structures are within normal limits. Degenerative changes are seen of the dorsal spine. IMPRESSION: 1. Stable chest.
--- NOTE | 2018-09-14 07:57 | PN ---
PROGRESS NOTE Mr. Dougherty is a 67-year-old male with a known history of chronic obstructive lung disease, history of congestive heart failure with severe ischemic cardiomyopathy who presented with respiratory failure requiring mechanical ventilation. He is intubated, sedated. He underwent bronchoscopy yesterday. His oxygenation is stable. His blood pressure and heart rate has been stable. His urine output has been stable. He continued to be in sinus mechanism. He continues to be at this time on aspirin once a day, Lipitor 40 mg daily, Plavix 75 mg daily, furosemide 20 mg IV q.12 hours, lisinopril 2.5 mg twice a day, metoprolol tartrate 12.5 mg twice a day. PHYSICAL EXAMINATION: Blood pressure running in the 130s to 140s with the heart rate in the 70s. LUNGS: With rhonchi anteriorly. HEART: Regular rate and rhythm. S1, S2. No S3 with a systolic murmur. ABDOMEN: Soft. Positive bowel sounds. No organomegaly. EXTREMITIES: No edema. LAB DATA: Lab data revealed a pH 7.44, pCO2 50, pO2 of 62. Hemoglobin 13.8. BUN and creatinine 35 and 0.56. His magnesium is 2.4. His chest x-ray shows no significant congestion with left lower lobe atelectasis. IMPRESSION: 1. Respiratory failure with exacerbation of chronic obstructive pulmonary disease. 2. History of ischemic cardiomyopathy. 3. History of coronary artery disease with prior percutaneous revascularization. 4. History of peripheral vascular disease. RECOMMENDATION: From the cardiac standpoint, we will continue him on the present medical regimen. He may require a bronchoscopy today. We will follow his blood pressure and adjust his medical regimen accordingly. Continue on the IV Lasix and will follow his renal function. MMODL / IJN: [id number] /
[2018-09-14] MEDS: BUDESONIDE 1 MG/2 ML NEBU INHALATION SCH ×2 (08:23→19:11)
[2018-09-14] MEDS: FORMOTEROL FUMARATE 20 MCG/2 ML NEBU INHALATION SCH ×2 (08:23→19:11)
[2018-09-14] MEDS: FAMOTIDINE 20 MG/2 ML VIAL IV SCH ×2 (09:08→21:01)
[2018-09-14] MEDS: FUROSEMIDE 10 MG/ML 2 ML VIAL IV SCH ×2 (09:08→21:01)
[2018-09-14] MEDS: CHLORHEXIDINE GLUCONATE 15 ML CUP MUCOUS MEM SCH ×2 (09:08→21:01)
[2018-09-14] MEDS: ENOXAPARIN 40 MG/0.4 ML SYRINGE SQ SCH (09:08)
[2018-09-14] MEDS: NICOTINE 21MG/24HR PATCH TRANSDERM SCH ×2 (09:10→09:13)
[2018-09-14] MEDS: POTASSIUM CHLORIDE 10 MEQ in WATER FOR INJECTION 1 100ML.BAG IVPB SCH ×5 (09:10→22:54)
[2018-09-14] MEDS: METOPROLOL TARTRATE 12.5 MG TAB PO SCH ×2 (09:13→22:00)
[2018-09-14] MEDS: CLOPIDOGREL 75 MG TAB PO SCH (09:13)
[2018-09-14] MEDS: LISINOPRIL 2.5 MG TAB PO SCH ×2 (09:13→21:04)
[2018-09-14] MEDS: ASPIRIN 81 MG PO SCH (09:13)
--- NOTE | 2018-09-14 09:45 | P.PN ---
Subjective Progress Note Date: 09/14/18 Principal diagnosis: Respiratory failure Progress note dated 09/14/2018 67-year-old male with history of acute on chronic hypoxemic and hypercapnic respiratory failure requiring intubation on September 09 for respiratory failure. The patient also has a history of chronic systolic congestive heart failure. He has a history of chronic tobacco dependence, noncompliance with medications, ischemic cardiomyopathy, with an ejection fraction of 20-25%, a previous history of ventilator dependent respiratory failure, CAD with previous stent placements in the right coronary artery and circumflex coronary artery, nonsustained ventricular tachycardia, DVT, PVOD, status post fem-fem bypass, hypertension, hyperlipidemia, left lower lobe pneumonia, status post bronchoscopy and lavage on 09/13/2018. Today, we'll do a daily interruption of sedation. We will place him on pressure support of 12 and CPAP of 5. Volumes and respiratory rates are good. He may not be ready for extubation. Prior to this, he was on the volume assist control mode rate of 22, tidal volume 500, FiO2 50% and PEEP of 5. Arterial blood gases show a PaO2 of 62, a PaCO2 of 50, and if 7.44. He is on a saline IV at 75 mL now, propofol 65 mics per kilogram per minute, and vital high protein at 35 with a goal of 45 mL an hour. Chest x- ray shows a left lower lobe infiltrate with atelectasis. Current microbiologic studies are negative or pending. He is currently on azithromycin and ceftriaxone. His overall prognosis remains poor given his multitude of medical problems as detailed above. Objective - Vital Signs Vital signs: Vital Signs Temp 97.8 F 09/14/18 00:00 Pulse 76 09/14/18 08:50 Resp 24 09/14/18 07:00 BP 144/70 09/14/18 07:00 Pulse Ox 92 L 09/14/18 07:00 Intake & Output 09/13/18 09/14/18 09/14/18 18:59 06:59 18:59 Intake Total 8763.554 8098.28 123 Output Total 1409 1530 70 Balance 482.876 211.28 53 Weight 88.3 kg Intake: IV 864 858 78 Pressure bag of 0.9 NaCl- 39 33 3 Sodium Chloride 0.9% 1, 825 825 75 000 ml @ 75 mls/hr IV . [id number] [facility] Rx#:[id number] Intake, IV Titration 607.876 298.28 Amount Azithromycin 500 mg In 250 Sodium Chloride 0.9% 250 ml @ 250 mls/hr IVPB Q24H [facility] Rx#:[id number] Propofol 1,000 mg In 257.876 298.28 Empty Bag 1 bag @ Titrate IV .Q0M [facility] Rx#: [id number] cefTRIAXone 2,000 mg In 100 Sodium Chloride 0.9% 100 ml @ 100 mls/hr IVPB Q24H [facility] Rx#:[id number] Tube Feeding 270 495 45 Lipid 150 Pressure bag of 0.9 NaCl- 150 Other 90 Output: Urine 1409 1530 70 Other: Voiding Method Indwelling Catheter Indwelling Catheter ABP, PAP, CO, CI - Last Documented Arterial Blood Pressure 153/60 - Exam No acute distress, sedated, with an placed endotracheal tube and NG tube. HEENT examination is grossly unremarkable. Mucous membranes are moist. Neck supple. Full range of motion. No adenopathy thyromegaly or neck vein distention. Cardiovascular examination reveals regular rhythm rate. S1-S2 normal. No S3 or S4. No discernible murmur noted. Heart sounds are distant. Lungs reveal coarse bilateral breath sounds. Coarse rhonchi and wheezes are appreciated. Sounds are diminished throughout. Breath sounds are equal bilaterally. No distinct crackles are noted. Abdomen soft and bowel sounds are heard. No masses or tenderness. Extremities are intact. No cyanosis clubbing or edema. Skin is without rash or lesion. Neurologic examination is very difficult to assess given the fact that he is on propofol at 65 mcg/kg/m. - Labs CBC & Chem 7: 09/14/18 04:45 09/14/18 04:45 Labs: Abnormal Lab Results - Last 24 Hours (Table) 09/13/18 09/13/18 09/13/18 Range/Units 11:36 17:15 23:59 MCV (80.0-100.0) fL Plt Count (150-450) k/uL Neutrophils # (1.3-7.7) k/uL Lymphocytes # (1.0-4.8) k/uL ABG pCO2 (35-45) mmHg ABG pO2 (83-108) mmHg ABG HCO3 (21-25) mmol/L ABG Total CO2 (19-24) mmol/L ABG O2 Saturation (94-97) % Carbon Dioxide (22-30) mmol/L BUN (9-20) mg/dL Creatinine (0.66-1.25) mg/dL Glucose (74-99) mg/dL POC Glucose (mg/dL) 106 H 142 H 124 H (75-99) mg/dL Magnesium (1.6-2.3) mg/dL 09/14/18 09/14/18 09/14/18 Range/Units 04:45 04:45 04:56 MCV 102.7 H (80.0-100.0) fL Plt Count 125 L (150-450) k/uL Neutrophils # 9.5 H (1.3-7.7) k/uL Lymphocytes # 0.5 L (1.0-4.8) k/uL ABG pCO2 50 H (35-45) mmHg ABG pO2 62 L (83-108) mmHg ABG HCO3 34 H (21-25) mmol/L ABG Total CO2 36 H (19-24) mmol/L ABG O2 Saturation 91.9 L (94-97) % Carbon Dioxide 33 H (22-30) mmol/L BUN 35 H (9-20) mg/dL Creatinine 0.56 L (0.66-1.25) mg/dL Glucose 177 H (74-99) mg/dL POC Glucose (mg/dL) (75-99) mg/dL Magnesium 2.4 H (1.6-2.3) mg/dL 09/14/18 Range/Units 06:14 MCV (80.0-100.0) fL Plt Count (150-450) k/uL Neutrophils # (1.3-7.7) k/uL Lymphocytes # (1.0-4.8) k/uL ABG pCO2 (35-45) mmHg ABG pO2 (83-108) mmHg ABG HCO3 (21-25) mmol/L ABG Total CO2 (19-24) mmol/L ABG O2 Saturation (94-97) % Carbon Dioxide (22-30) mmol/L BUN (9-20) mg/dL Creatinine (0.66-1.25) mg/dL Glucose (74-99) mg/dL POC Glucose (mg/dL) 183 H (75-99) mg/dL Magnesium (1.6-2.3) mg/dL Microbiology - Last 24 Hours (Table) 09/09/18 20:30 Blood Culture - Preliminary Blood No Growth after 96 hours 09/13/18 09:48 Gram Stain - Preliminary Bronchoalviolar Lavage - Left Bronchial Washings Culture - Preliminary 09/13/18 09:48 Acid Fast Bacilli Culture - Preliminary Bronchoalviolar Lavage - Left 09/13/18 09:48 Fungal Culture - Preliminary Bronchoalviolar Lavage - Left Assessment and Plan Assessment: Assessment Acute hypoxemic and hypercapnic respiratory failure, secondary to severe COPD exacerbation and chronic systolic CHF exacerbation, requiring intubation and mechanical ventilation on September 09 Status post bronchoscopy for sampling of the lower respiratory tract and removal of airway secretions on September 13. Severe end-stage COPD History of chronic and ongoing tobacco dependence Severe ischemic cardiomyopathy with ejection fraction of 20-25% History of noncompliance with medications and follow-ups Previous history of respiratory failure with ventilator dependence Coronary artery disease, status post stent placements in the right coronary artery and circumflex coronary artery History of nonsustained ventricular tachycardia History of DVT Status post fem-fem bypass for peripheral vascular disease History of essential hypertension History of hyperlipidemia Probable left lower lobe pneumonia Plan: Plan dated 09/14/2018 The patient remains on mechanical ventilator. We switch him from the volume assist control mode to the pressure support mode. He is on PSV 12 and CPAP of 5. He remains on 50%. He remains on tube feeds. Microbiology is currently either negative or pending. White count 10.4, hemoglobin 13.8, hematocrit 44.3 , and platelet count 125,000. Sodium potassium chloride are all normal. CO2 is 33. BUN is 35 with a creatinine 0.56. His medications are reviewed. Remains on albuterol and Atrovent updrafts every 4 hours around the clock as well as Pulmicort 1 mg and formoterol 20 g. Is getting all the other usual medications. His prognosis is poor. He apparently only tolerated pressure support for about 12 minutes. He was placed back on the volume assist control mode and be sedated. A consultation will be given to the surgeon for possible tracheostomy and PEG tube placement. Prognosis is very poor. Critical care time 35 minutes Time with Patient: Greater than 30
[2018-09-14] MEDS: HYDROmorphone 1 MG/ML 1 ML SYRINGE IVP PRN ×3 (10:53→22:28)
[2018-09-14 12:01] LABS: Glucose,Whole Blood 128 mg/dL (75-99)
--- NOTE | 2018-09-14 12:01 | P.GSCN ---
History of Present Illness Consult date: 09/14/18 Reason for Consult: Hypoxic respiratory failure with failure to wean, need for tracheostomy and PEG tube Requesting physician: Hansel Card History of present illness: This is a 67-year-old gentleman who follows with Dr. Adriana Oden on an outpatient basis. He has a previous medical history of chronic hypoxic and hypercapnic respiratory failure secondary to COPD with previous ventilator dependence, continued chronic tobacco dependence, hypertension, systolic congestive heart failure, ischemic cardiomyopathy with an ejection fraction 20- 25%, coronary artery disease with myocardial infarction and drug-eluting stent placement in February 2017, nonsustained ventricular tachycardia, DVT, peripheral vascular disease status post fem-fem bypass, hyperlipidemia, hypertension, restless leg syndrome, chronic hip pain, continued chronic tobacco dependence, marijuana use, and medical noncompliance. He presented to [facility] emergency room on 09/09/2018 with complaints of shortness of breath. He was initially placed on BiPAP and eventually needed to be intubated. He was admitted to the intensive care unit for acute on chronic hypoxemic and hypercapnic respiratory failure secondary to COPD exacerbation, and left lower lobe pneumonia. He was placed on bronchodilators, antibiotics, and steroids. Multiple weaning trials have been attempted which patient has not tolerated. He had a bronchoscopy with bronchoalveolar lavage of the left lower lobe yesterday by Dr. Pringle. This morning Dr. Card tried to change him to pressure control ventilation which patient only tolerated for about 12 minutes, and subsequently was placed back on volume control ventilation. Dr. Baptiste was consulted for placement of tracheostomy and PEG tube. Review of Systems ROS unobtainable: due to endotracheal tube Past Medical History Past Medical History: Coronary Artery Disease (CAD), Heart Failure, COPD, Deep Vein Thrombosis (DVT), GERD/Reflux, Hyperlipidemia, Hypertension, Myocardial Infarction ([place]), Vascular Disorder Additional Past Medical History / Comment(s): Chronic hypoxic respiratory failure secondary to COPD, chronic hypercapnic respiratory failure secondary to COPD, hypertension, CHF with an ejection fraction of 20-25%, coronary artery disease with previous coronary intervention and stenting please refer to the catheterization from 2016, previous history of nonsustained V. tach, previous history of DVT, peripheral vascular disease with a previous fem-fem bypass surgery, hyperlipidemia, hypertension, restless leg syndrome, sciatica, left rotator cuff injury, chronic bilateral hip pain, previous [place] last one being in September 2014 Last Myocardial Infarction Date:: 10/08/14 History of Any Multi-Drug Resistant Organisms: None Reported Past Surgical History: Appendectomy, Bowel Resection, Heart Catheterization With Stent, Hernia Repair Additional Past Surgical History / Comment(s): 12/01/14 R femfem bypass, Abdominal aortagram with bilateral extremity, HEART CATH WITH STENT SEP 2014 , HERNIA SURG X3. Past Anesthesia/Blood Transfusion Reactions: No Reported Reaction Additional Past Anesthesia/Blood Transfusion Reaction / Comm: stated never received any blood transfusions Date of Last Stent Placement:: February 2017 Past Psychological History: No Psychological Hx Reported Smoking Status: Current every day smoker Past Alcohol Use History: None Reported Additional Past Alcohol Use History / Comment(s): Pt started smoking in 1965 and is a ppd smoker. Past Drug Use History: Marijuana Additional Drug Use History / Comment(s): MARIJUANA 3-4 X a week. amount varies - Past Family History Mother Family Medical History: Chest Pain / Angina, Diabetes Mellitus, Hypertension, Myocardial Infarction ([place]) Additional Family Medical History / Comment(s): Mother of [place] at age 84 yrs. Father Family Medical History: Asthma, Congestive Heart Failure (CHF), COPD, GERD/ Reflux, Hypertension, Myocardial Infarction ([place]) Additional Family Medical History / Comment(s): Father had black lung disease. Medications and Allergies Home Medications Medication Instructions Recorded Confirmed Type rOPINIRole HCL [Requip] 2 mg PO HS 10/08/14 09/09/18 History Albuterol Sulfate [Proair Hfa] 2 puff INHALATION RT-Q6H PRN 03/04/17 09/09/18 History Nitroglycerin Sl Tabs [Nitrostat] 0.4 mg SUBLINGUAL Q5M PRN #25 tab 03/07/17 Rx Aclidinium [place] [Tudorza 1 puff PO RT-BID 03/16/18 09/09/18 History Pressair] Budesonide-Formot 160-4.5 Mcg 2 puff INHALATION RT-BID 03/16/18 09/09/18 History [Symbicort 160-4.5 Mcg Inhaler] Aspirin 81 mg PO DAILY chew 03/22/18 09/09/18 Rx Nicotine 21Mg/24Hr Patch [Habitrol] 1 patch TRANSDERM DAILY #30 patch 05/22/18 09/09/18 Rx Ipratropium-Albuterol Nebulize 3 ml INHALATION RT-Q6H PRN 08/24/18 09/09/18 History [Duoneb 0.5 mg-3 mg/3 ml Soln] Atorvastatin [Lipitor] 20 mg PO HS #30 tab 08/26/18 09/09/18 Rx Clopidogrel Bisulfate [Plavix] 75 mg PO DAILY #30 tab 08/26/18 09/09/18 Rx Furosemide [Lasix] 40 mg PO BID #60 tab 08/26/18 09/09/18 Rx Metoprolol Tartrate [Lopressor] 12.5 mg PO BID #60 tab 08/26/18 09/09/18 Rx Allergies Allergy/AdvReac Type Severity Reaction Status Date / Time No Known Allergies Allergy Verified 09/09/18 21:38 Surgical - Exam Vital Signs Temp Pulse Resp BP Pulse Ox 98.2 F 155 H 35 H 175/119 100 09/09/18 20:42 09/09/18 20:42 09/09/18 20:42 09/09/18 20:42 09/09/18 20:42 - General Disheveled well developed, no distress, chronically ill - Eyes PERRL - ENT poor prison - Neck no masses, no bruits, trachea midline - Respiratory Lungs sounds diminished bilaterally. Respirations even, nonlabored on mechanical ventilation. Current settings assist control mode, FiO2 50%, tidal with 500, respiratory rate 22, PEEP 5. ABGs this morning on these settings 7.44 /50/62/34/92%/10.2. 8.0 ET tube present, 25 at the lip. - Cardiovascular S1, S2 present. Regular rate and rhythm, sinus rhythm with occasional PACs, occasional PVCs on telemetry. Palpable peripheral pulses bilaterally. No edema present. No calf pain or tenderness noted. Right radial arterial line present. SCDs present. - Abdomen Abdomen: soft, non tender, bowel sounds - Genitourinary Meneses present draining clear, yellow urine. Output 50-75 mL per hour. - Rectum Deferred - Integumentary no rash, no growths - Neurologic Remains sedated on 75 mcg of propofol. Results - Labs 09/14/18 04:45 09/14/18 04:45 Abnormal Lab Results - Last 24 Hours (Table) 09/13/18 09/13/18 09/13/18 Range/Units 11:36 17:15 23:59 MCV (80.0-100.0) fL Plt Count (150-450) k/uL Neutrophils # (1.3-7.7) k/uL Lymphocytes # (1.0-4.8) k/uL ABG pCO2 (35-45) mmHg ABG pO2 (83-108) mmHg ABG HCO3 (21-25) mmol/L ABG Total CO2 (19-24) mmol/L ABG O2 Saturation (94-97) % Carbon Dioxide (22-30) mmol/L BUN (9-20) mg/dL Creatinine (0.66-1.25) mg/dL Glucose (74-99) mg/dL POC Glucose (mg/dL) 106 H 142 H 124 H (75-99) mg/dL Magnesium (1.6-2.3) mg/dL 09/14/18 09/14/18 09/14/18 Range/Units 04:45 04:45 04:56 MCV 102.7 H (80.0-100.0) fL Plt Count 125 L (150-450) k/uL Neutrophils # 9.5 H (1.3-7.7) k/uL Lymphocytes # 0.5 L (1.0-4.8) k/uL ABG pCO2 50 H (35-45) mmHg ABG pO2 62 L (83-108) mmHg ABG HCO3 34 H (21-25) mmol/L ABG Total CO2 36 H (19-24) mmol/L ABG O2 Saturation 91.9 L (94-97) % Carbon Dioxide 33 H (22-30) mmol/L BUN 35 H (9-20) mg/dL Creatinine 0.56 L (0.66-1.25) mg/dL Glucose 177 H (74-99) mg/dL POC Glucose (mg/dL) (75-99) mg/dL Magnesium 2.4 H (1.6-2.3) mg/dL 09/14/18 Range/Units 06:14 MCV (80.0-100.0) fL Plt Count (150-450) k/uL Neutrophils # (1.3-7.7) k/uL Lymphocytes # (1.0-4.8) k/uL ABG pCO2 (35-45) mmHg ABG pO2 (83-108) mmHg ABG HCO3 (21-25) mmol/L ABG Total CO2 (19-24) mmol/L ABG O2 Saturation (94-97) % Carbon Dioxide (22-30) mmol/L BUN (9-20) mg/dL Creatinine (0.66-1.25) mg/dL Glucose (74-99) mg/dL POC Glucose (mg/dL) 183 H (75-99) mg/dL Magnesium (1.6-2.3) mg/dL Microbiology - Last 24 Hours (Table) 09/09/18 20:30 Blood Culture - Preliminary Blood No Growth after 96 hours 09/13/18 09:48 Gram Stain - Preliminary Bronchoalviolar Lavage - Left Bronchial Washings Culture - Preliminary 09/13/18 09:48 Acid Fast Bacilli Culture - Preliminary Bronchoalviolar Lavage - Left 09/13/18 09:48 Fungal Culture - Preliminary Bronchoalviolar Lavage - Left Diabetes panel 09/13/18 09/14/18 Range/Units 12:46 04:45 Sodium 142 (137-145) mmol/L Potassium 4.1 3.8 (3.5-5.1) mmol/L Chloride 107 (98-107) mmol/L Carbon Dioxide 33 H (22-30) mmol/L BUN 35 H (9-20) mg/dL Creatinine 0.56 L (0.66-1.25) mg/dL Glucose 177 H (74-99) mg/dL Calcium 8.7 (8.4-10.2) mg/dL Calcium panel 09/14/18 Range/Units 04:45 Calcium 8.7 (8.4-10.2) mg/dL Phosphorus 3.8 (2.5-4.5) mg/dL Pituitary panel 09/13/18 09/14/18 Range/Units 12:46 04:45 Sodium 142 (137-145) mmol/L Potassium 4.1 3.8 (3.5-5.1) mmol/L Chloride 107 (98-107) mmol/L Carbon Dioxide 33 H (22-30) mmol/L BUN 35 H (9-20) mg/dL Creatinine 0.56 L (0.66-1.25) mg/dL Glucose 177 H (74-99) mg/dL Calcium 8.7 (8.4-10.2) mg/dL Adrenal panel 09/13/18 09/14/18 Range/Units 12:46 04:45 Sodium 142 (137-145) mmol/L Potassium 4.1 3.8 (3.5-5.1) mmol/L Chloride 107 (98-107) mmol/L Carbon Dioxide 33 H (22-30) mmol/L BUN 35 H (9-20) mg/dL Creatinine 0.56 L (0.66-1.25) mg/dL Glucose 177 H (74-99) mg/dL Calcium 8.7 (8.4-10.2) mg/dL - Imaging Chest x-ray: report reviewed, image reviewed Assessment and Plan (1) Tobacco dependence Current Visit: Yes Status: Chronic Code(s): F17.200 - NICOTINE DEPENDENCE, UNSPECIFIED, UNCOMPLICATED SNOMED Code(s): 51636995 (2) Acute exacerbation of chronic obstructive airways disease Current Visit: Yes Status: Acute Code(s): J44.1 - CHRONIC OBSTRUCTIVE PULMONARY DISEASE W (ACUTE) EXACERBATION SNOMED Code(s): 238936195 (3) COPD (chronic obstructive pulmonary disease) Current Visit: Yes Status: Chronic Code(s): J44.9 - CHRONIC OBSTRUCTIVE PULMONARY DISEASE, UNSPECIFIED SNOMED Code(s): 28940256 (4) Respiratory failure Current Visit: Yes Status: Acute Code(s): J96.90 - RESPIRATORY FAILURE, UNSP , UNSP W HYPOXIA OR HYPERCAPNIA SNOMED Code(s): 529048936 (5) CAD (coronary artery disease) Current Visit: Yes Status: Chronic Code(s): I25.10 - ATHSCL HEART DISEASE OF [place] CORONARY ARTERY W/O ANG PCTRS SNOMED Code(s): 37062437 (6) Congestive heart failure Current Visit: Yes Status: Chronic Code(s): I50.9 - HEART FAILURE, UNSPECIFIED SNOMED Code(s): 70877821 (7) H/O heart artery stent Current Visit: Yes Status: Chronic Code(s): Z95.5 - PRESENCE OF CORONARY ANGIOPLASTY IMPLANT AND GRAFT SNOMED Code(s): 678070981 Plan: The peak patient was seen and examined at the bedside. Chart/diagnostics were reviewed. The case was discussed in detail with Dr. Baptiste. Optimally we would like patient off Plavix for 3 days prior to surgery. Will discuss with cardiology as patient's last stent was placed greater than 1 year ago. Assuming its okay with cardiology to stop Plavix, we will tentatively plan for tracheostomy and PEG tube placement , 09/17/2018. Tube feeding will need to be placed on hold . We will discuss with the patient's sister to obtain informed consent. Continued medical management per primary care, pulmonology, and cardiology. More recommendations to follow. Thank you Dr. Card for this consult. We look forward to working with you in the care of your patient. Time with Patient: Greater than 30
[2018-09-14] MEDS: cefTRIAXone 2,000 MG in SODIUM CHLORIDE 0.9% 100 ML IVPB SCH (16:17)
[2018-09-14 18:12] LABS: Glucose,Whole Blood 128 mg/dL (75-99)
[2018-09-14] MEDS: AZITHROMYCIN 500 MG in SODIUM CHLORIDE 0.9% 250 ML IVPB SCH (18:18)
[2018-09-14] MEDS: ATORVASTATIN 20 MG TAB PO SCH (21:01)
--- NOTE | 2018-09-14 21:54 | PN ---
PROGRESS NOTE DATE OF SERVICE: September 14, 2018. PRESENTING COMPLAINT: Intubated. INTERVAL HISTORY: Patient with advanced COPD, smoker, CHF, admitted for the same. Remains in the ICU, intubated. FiO2 50% and PEEP of 5. Remains on IV antibiotics, IV Solu-Medrol, IV propofol. Having trach secretions. Tube feeding at 45 mL an hour. Consultations made to Cardiothoracic for PEG tube placement. REVIEW OF SYSTEMS: Patient intubated. CURRENT MEDICATIONS: Include IV azithromycin, IV ceftriaxone, IV Lasix 20 mg, IV Solu-Medrol, IV propofol. EXAMINATION: VITAL SIGNS: Afebrile, pulse 79, respiration 24, blood pressure 129/60, pulse ox 94% on 50% FiO2. GENERAL APPEARANCE: Lying in bed, intubated. EYES: Pupils equal. Conjunctivae normal. HEENT: External appearance of nose and ears normal. Oral cavity, endotracheal tube placed. NECK: JVD unable to assess. Mass not palpable. RESPIRATORY: Effort increased. LUNGS: Decreased breath sounds. CARDIOVASCULAR: 1st and 2nd sounds normal. No edema. ABDOMEN: Soft, nontender. Liver and spleen not palpable. NEUROLOGICAL: Pupils equal. INVESTIGATIONS: White count 10.4, hemoglobin 13.8, platelets 125. Blood gases noted with a pCO2 50 and a PO2 of 62. Potassium 3.8, BUN 35, creatinine 0.56. Chest x-ray film, personally reviewed by me shows infiltrates versus fluid. ASSESSMENT: 1. Acute severe chronic obstructive pulmonary disease exacerbation in a current smoker, slow to respond. 2. Chronic nicotine dependence. Patient is a cigarette smoker. 3. Acute on chronic congestive heart failure exacerbation from systolic dysfunction EF 20% on IV Lasix. 4. Acute respiratory acidosis. 5. Acute hypoxic respiratory failure from underlying chronic obstructive pulmonary disease requiring ventilator assistance, slow to respond. 6. Coronary artery disease with stent in 2013. 7. Peripheral artery disease with prior fem-fem bypass. 8. Hyperlipidemia. 9. Essential hypertension. 10.Restless legs syndrome. 11.Chronic rotator cuff injury. 12.Gastroesophageal reflux disease. 13.ET tube feeding. 14.Status post bronchoscopy. PLAN: Continue current medication and treatment plan. Antibiotics, supportive care, sedative, IV fluids, IV Lasix. Prognosis remains guarded. Cardiothoracic Surgery was consulted for PEG endotracheal tube. MMODL / IJN: [id number] /
[2018-09-14] MEDS ORDERED: Potassium Replacement Protocol 1 EACH MISC MISCELLANE PRN (22:44)
[2018-09-15] MEDS: methylPREDNISolone SOD SUCCI 125 MG/2 ML VIAL IV SCH ×4 (00:21→17:58)
[2018-09-15] MEDS: POTASSIUM CHLORIDE 10 MEQ in WATER FOR INJECTION 1 100ML.BAG IVPB SCH ×5 (00:21→15:28)
[2018-09-15 00:23] LABS: Glucose,Whole Blood 160 mg/dL (75-99)
[2018-09-15] MEDS: INSULIN ASPART 100 UNIT/ML 1 ML 10 ML VIAL SQ SCH ×4 (00:24→17:58)
[2018-09-15] MEDS: IPRATROPIUM-ALBUTEROL 3 ML NEB INHALATION SCH ×7 (00:27→23:42)
[2018-09-15] MEDS: PROPOFOL 1,000 MG in EMPTY BAG 1 BAG IV SCH ×4 (02:24→19:03)
[2018-09-15 05:01] LABS: Basophils % (A) 0 %; Eosinophils % (A) 0 %; HGB 13.8 gm/dL (13.0-17.5); Lymphocytes # (A) 0.6 k/uL (1.0-4.8); Lymphocytes % (A) 5 %; MCH 32.7 pg (25.0-35.0); MCHC 32.1 g/dL (31.0-37.0); MCV 101.7 fL (80.0-100.0); Macrocytosis Slight; Mean Platelet Volume 8.1; Monocytes # (A) 0.4 k/uL (0-1.0); Monocytes % (A) 3 %; Neutrophils # (A) 9.5 k/uL (1.3-7.7); Neutrophils % (A) 90 %; Platelet Count 132 k/uL (150-450); RBC 4.23 m/uL (4.30-5.90); RDW 13.3 % (11.5-15.5); WBC 10.5 k/uL (3.8-10.6)
[2018-09-15 05:19] LABS: Anion Gap 2 mmol/L; Blood Urea Nitrogen 37 mg/dL (9-20); Calcium 8.7 mg/dL (8.4-10.2); Carbon Dioxide 32 mmol/L (22-30); Chloride 107 mmol/L (98-107); Glucose 159 mg/dL (74-99); Magnesium 2.5 mg/dL (1.6-2.3); Potassium 3.9 mmol/L (3.5-5.1); Sodium 141 mmol/L (137-145)
[2018-09-15] MEDS: HYDROmorphone 1 MG/ML 1 ML SYRINGE IVP PRN ×4 (05:31→19:56)
[2018-09-15 05:37] LABS: ABG Base Excess 9.8 mmol/L; ABG HCO3 34 mmol/L (21-25); ABG Oxygen Saturation 92.4 % (94-97); ABG PCO2 47 mmHg (35-45); ABG PH 7.46 (7.35-7.45); ABG PO2 66 mmHg (83-108); ABG TCO2 35 mmol/L (19-24)
[2018-09-15 06:17] LABS: Glucose,Whole Blood 152 mg/dL (75-99)
[2018-09-15] MEDS: BUDESONIDE 1 MG/2 ML NEBU INHALATION SCH ×2 (07:16→19:40)
[2018-09-15] MEDS: FORMOTEROL FUMARATE 20 MCG/2 ML NEBU INHALATION SCH ×2 (07:16→20:06)
--- NOTE | 2018-09-15 08:05 | PN ---
PROGRESS NOTE Mr. Dougherty is a 67-year-old male with a known history chronic obstructive lung disease, history of coronary artery disease, history of chronic tobacco use and ischemic cardiomyopathy who presented with respiratory failure, requiring mechanical ventilation. He has underwent bronchoscopy. He remains intubated and sedated, hemodynamically stable. He had no episodes of tachycardia or bradycardia. His urine output has been stable. He is scheduled to undergo tracheostomy on . His Plavix is on hold. Otherwise, he continues on aspirin, Lipitor 40 mg daily, Lasix 20 mg IV q.12 hours, lisinopril 2.5 mg twice a day, metoprolol tartrate 12.5 mg twice a day. PHYSICAL EXAMINATION: Blood pressure 142/50 with a heart rate in 70s. lungs no wheezes anteriorly. HEART: Regular rhythm S1, S2. No S3 with a systolic murmur, no diastolic murmur. ABDOMEN: Soft. Positive bowel sounds. No organomegaly. EXTREMITIES: No significant edema. LAB DATA: Revealed BUN and creatinine 37 and 0.6, potassium 3.9, hemoglobin 13.8. Magnesium of 2.5. IMPRESSION: 1. Respiratory failure with exacerbation of chronic obstructive pulmonary disease. 2. Severe ischemic cardiomyopathy. 3. History of percutaneous revascularization. 4. Event revealed peripheral vascular disease. 5. Hyperlipidemia. RECOMMENDATION: From the cardiac standpoint I will increase the dose of his beta francesco. Continue with his medical regimen. We will await the trach placement on . The prognosis remains guarded. MMODL / IJN: [id number] /
[2018-09-15] MEDS: ENOXAPARIN 40 MG/0.4 ML SYRINGE SQ SCH (09:10)
[2018-09-15] MEDS: FAMOTIDINE 20 MG/2 ML VIAL IV SCH ×2 (09:10→20:21)
[2018-09-15] MEDS: ASPIRIN 81 MG PO SCH (09:10)
[2018-09-15] MEDS: CHLORHEXIDINE GLUCONATE 15 ML CUP MUCOUS MEM SCH ×2 (09:10→20:21)
[2018-09-15] MEDS: FUROSEMIDE 10 MG/ML 2 ML VIAL IV SCH ×2 (09:10→20:21)
[2018-09-15] MEDS: LISINOPRIL 2.5 MG TAB PO SCH ×2 (09:10→20:21)
[2018-09-15] MEDS: SODIUM CHLORIDE 0.9% 1,000 ML IV SCH (09:11)
[2018-09-15] MEDS: NICOTINE 21MG/24HR PATCH TRANSDERM SCH (09:11)
--- NOTE | 2018-09-15 09:30 | XR ---
EXAMINATION TYPE: XR chest 1V DATE OF EXAM: 09/15/2018 COMPARISON: 09/14/2018 HISTORY: Difficulty breathing ventilation TECHNIQUE: Single frontal view of the chest is obtained. FINDINGS: The heart size is at the upper limits normal. The pulmonary vasculature is normal. Left lo wer lobe infiltrate appears to be worsening. Small left pleural effusion may be present. Mild right b asilar atelectasis may be present. Endotracheal tube tip is above the dino. Nasogastric tube transverses the thorax. EKG leads overlie the chest. IMPRESSION: 1. Increasing left lower lobe infiltrate and/or left pleural effusion. 2. Lines and catheters discussed above.
--- NOTE | 2018-09-15 09:38 | P.PN ---
Subjective Progress Note Date: 09/15/18 Principal diagnosis: Respiratory failure Progress note dated 09/14/2018 67-year-old male with history of acute on chronic hypoxemic and hypercapnic respiratory failure requiring intubation on September 09 for respiratory failure. The patient also has a history of chronic systolic congestive heart failure. He has a history of chronic tobacco dependence, noncompliance with medications, ischemic cardiomyopathy, with an ejection fraction of 20-25%, a previous history of ventilator dependent respiratory failure, CAD with previous stent placements in the right coronary artery and circumflex coronary artery, nonsustained ventricular tachycardia, DVT, PVOD, status post fem-fem bypass, hypertension, hyperlipidemia, left lower lobe pneumonia, status post bronchoscopy and lavage on 09/13/2018. Today, we'll do a daily interruption of sedation. We will place him on pressure support of 12 and CPAP of 5. Volumes and respiratory rates are good. He may not be ready for extubation. Prior to this, he was on the volume assist control mode rate of 22, tidal volume 500, FiO2 50% and PEEP of 5. Arterial blood gases show a PaO2 of 62, a PaCO2 of 50, and if 7.44. He is on a saline IV at 75 mL now, propofol 65 mics per kilogram per minute, and vital high protein at 35 with a goal of 45 mL an hour. Chest x- ray shows a left lower lobe infiltrate with atelectasis. Current microbiologic studies are negative or pending. He is currently on azithromycin and ceftriaxone. His overall prognosis remains poor given his multitude of medical problems as detailed above. Progress note dated 09/15/2018 67-year-old male with a history of acute on chronic hypoxemic and hypercapnic respiratory failure, requiring intubation and mechanical ventilation on September 09. The patient also has a history of chronic systolic heart failure, chronic tobacco dependence, noncompliance with medications, ischemic cardiomyopathy with an ejection fraction of 20-25%, a previous history of ventilator dependent respiratory failure, coronary artery disease with previous stent placements in the right coronary artery and circumflex coronary artery, nonsustained ventricular tachycardia, DVT, PVOD, status post fem-fem bypass, hypertension, hyperlipidemia, left lower lobe pneumonia, and status post bronchoscopy with BAL on 09/13/2018. Yesterday, we attempted a daily interruption of sedation but he did very poorly. We place him on pressure support of 12 and CPAP of 5. After a few minutes. Place him back on the volume assist control mode. Currently, he is on volume assist control, rate of 22, tidal volume 500, FiO2 50 %, and PEEP of 5. Arterial blood gases show a PaO2 of 66 a PaCO2 of 47 and a pH 7.46. His chest x-ray showed bibasilar infiltrates, left greater than right. He is on propofol at 35 mcg/kg/m, saline IV at 75 mL an hour and vital high protein at 45 with a goal of 45 mL an hour. A consultation has been placed with surgery for possible tracheostomy and PEG tube placement on . Objective - Vital Signs Vital signs: Vital Signs Temp 97.8 F 09/15/18 08:00 Pulse 50 L 09/15/18 08:00 Resp 22 09/15/18 08:00 BP 113/61 09/15/18 08:00 Pulse Ox 93 L 09/15/18 08:00 Intake & Output 09/14/18 09/15/18 09/15/18 18:59 06:59 18:59 Intake Total 2256.000 2253.302 366 Output Total 1420 1575 125 Balance 836.000 678.302 241 Weight 87 kg Intake: IV 1036 1186 156 Azithromycin 500 mg In 250 Sodium Chloride 0.9% 250 ml @ 250 mls/hr IVPB Q24H [facility] Rx#:[id number] Pressure bag of 0.9 NaCl- 36 36 6 Sodium Chloride 0.9% 1, 900 900 150 000 ml @ 75 mls/hr IV . [id number] [facility] Rx#:[id number] cefTRIAXone 2,000 mg In 100 Sodium Chloride 0.9% 100 ml @ 100 mls/hr IVPB Q24H [facility] Rx#:[id number] Intake, IV Titration 500.000 257.302 Amount Potassium Chloride 10 meq 200 In Water For Injection 1 100ml.bag @ 100 mls/hr IVPB Q1H [facility] Rx#: [id number] Potassium Chloride 10 meq 100 100 In Water For Injection 1 100ml.bag @ 100 mls/hr IVPB Q1H [facility] Rx#: [id number] Propofol 1,000 mg In 200.000 157.302 Empty Bag 1 bag @ Titrate IV .Q0M [facility] Rx#: [id number] Tube Feeding 630 720 180 Other 90 90 30 Output: Urine 1420 1575 125 Other: Voiding Method Indwelling Catheter Indwelling Catheter # Bowel Movements 1 ABP, PAP, CO, CI - Last Documented Arterial Blood Pressure 119/48 - Exam No acute distress, sedated, with an placed endotracheal tube and NG tube. HEENT examination is grossly unremarkable. Mucous membranes are moist. Neck supple. Full range of motion. No adenopathy thyromegaly or neck vein distention. Cardiovascular examination reveals regular rhythm rate. S1-S2 normal. No S3 or S4. No discernible murmur noted. Heart sounds are distant. Lungs reveal coarse bilateral breath sounds. Coarse rhonchi and wheezes are appreciated. Sounds are diminished throughout. Breath sounds are equal bilaterally. No distinct crackles are noted. Abdomen soft and bowel sounds are heard. No masses or tenderness. Extremities are intact. No cyanosis clubbing or edema. Skin is without rash or lesion. Neurologic examination is very difficult to assess given the fact that he is on propofol at 65 mcg/kg/m. - Labs CBC & Chem 7: 09/15/18 04:17 09/15/18 04:17 Labs: Abnormal Lab Results - Last 24 Hours (Table) 09/14/18 09/14/18 09/15/18 Range/Units 11:57 17:58 00:22 RBC (4.30-5.90) m/uL MCV (80.0-100.0) fL Plt Count (150-450) k/uL Neutrophils # (1.3-7.7) k/uL Lymphocytes # (1.0-4.8) k/uL ABG pH (7.35-7.45) ABG pCO2 (35-45) mmHg ABG pO2 (83-108) mmHg ABG HCO3 (21-25) mmol/L ABG Total CO2 (19-24) mmol/L ABG O2 Saturation (94-97) % Carbon Dioxide (22-30) mmol/L BUN (9-20) mg/dL Creatinine (0.66-1.25) mg/dL Glucose (74-99) mg/dL POC Glucose (mg/dL) 128 H 128 H 160 H (75-99) mg/dL Magnesium (1.6-2.3) mg/dL 09/15/18 09/15/18 09/15/18 Range/Units 04:17 04:17 05:36 RBC 4.23 L (4.30-5.90) m/uL MCV 101.7 H (80.0-100.0) fL Plt Count 132 L (150-450) k/uL Neutrophils # 9.5 H (1.3-7.7) k/uL Lymphocytes # 0.6 L (1.0-4.8) k/uL ABG pH 7.46 H (7.35-7.45) ABG pCO2 47 H (35-45) mmHg ABG pO2 66 L (83-108) mmHg ABG HCO3 34 H (21-25) mmol/L ABG Total CO2 35 H (19-24) mmol/L ABG O2 Saturation 92.4 L (94-97) % Carbon Dioxide 32 H (22-30) mmol/L BUN 37 H (9-20) mg/dL Creatinine 0.60 L (0.66-1.25) mg/dL Glucose 159 H (74-99) mg/dL POC Glucose (mg/dL) (75-99) mg/dL Magnesium 2.5 H (1.6-2.3) mg/dL 09/15/18 Range/Units 06:17 RBC (4.30-5.90) m/uL MCV (80.0-100.0) fL Plt Count (150-450) k/uL Neutrophils # (1.3-7.7) k/uL Lymphocytes # (1.0-4.8) k/uL ABG pH (7.35-7.45) ABG pCO2 (35-45) mmHg ABG pO2 (83-108) mmHg ABG HCO3 (21-25) mmol/L ABG Total CO2 (19-24) mmol/L ABG O2 Saturation (94-97) % Carbon Dioxide (22-30) mmol/L BUN (9-20) mg/dL Creatinine (0.66-1.25) mg/dL Glucose (74-99) mg/dL POC Glucose (mg/dL) 152 H (75-99) mg/dL Magnesium (1.6-2.3) mg/dL Microbiology - Last 24 Hours (Table) 09/09/18 20:30 Blood Culture - Preliminary Blood No Growth after 120 hours 09/13/18 09:48 Acid Fast Bacilli Smear - Final Bronchoalviolar Lavage - Left Acid Fast Bacilli Culture - Preliminary Assessment and Plan Assessment: Assessment Acute hypoxemic and hypercapnic respiratory failure, secondary to severe COPD exacerbation and chronic systolic CHF exacerbation, requiring intubation and mechanical ventilation on September 09 Status post bronchoscopy for sampling of the lower respiratory tract and removal of airway secretions on September 13. Severe end-stage COPD History of chronic and ongoing tobacco dependence Severe ischemic cardiomyopathy with ejection fraction of 20-25% History of noncompliance with medications and follow-ups Previous history of respiratory failure with ventilator dependence Coronary artery disease, status post stent placements in the right coronary artery and circumflex coronary artery History of nonsustained ventricular tachycardia History of DVT Status post fem-fem bypass for peripheral vascular disease History of essential hypertension History of hyperlipidemia Probable left lower lobe pneumonia Plan: Plan dated 09/14/2018 The patient remains on mechanical ventilator. We switch him from the volume assist control mode to the pressure support mode. He is on PSV 12 and CPAP of 5. He remains on 50%. He remains on tube feeds. Microbiology is currently either negative or pending. White count 10.4, hemoglobin 13.8, hematocrit 44.3 , and platelet count 125,000. Sodium potassium chloride are all normal. CO2 is 33. BUN is 35 with a creatinine 0.56. His medications are reviewed. Remains on albuterol and Atrovent updrafts every 4 hours around the clock as well as Pulmicort 1 mg and formoterol 20 g. Is getting all the other usual medications. His prognosis is poor. He apparently only tolerated pressure support for about 12 minutes. He was placed back on the volume assist control mode and be sedated. A consultation will be given to the surgeon for possible tracheostomy and PEG tube placement. Prognosis is very poor. Critical care time 35 minutes Plan dated 09/15/2018 Again, we will attempt a daily eruption of sedation with a pressure support of 5 and CPAP of 5. We have put a consultation in the surgery for possible tracheostomy and PEG tube placement to be done on . His chest x-ray shows evidence of bibasal pneumonia, left greater than right. Microbiology is negative. White count 10.5, hemoglobin 13.8, hematocrit 43 and platelet count 132,000. Sodium and potassium and chloride are all normal. CO2 is 32. Anion gap is normal. BUN is 37 with a creatinine 0.60. The patient's medications are reviewed. He remains on DuoNeb nebs every 4 hours around the clock, Rocephin, azithromycin, Pulmicort updrafts mixed with formoterol, and Solu- Medrol. His overall prognosis is poor. The patient has not really taken very good care of himself. We will continue supportive care. Possible tracheostomy and PEG tube placement on . Critical care time 36 minutes Time with Patient: Greater than 30
[2018-09-15] MEDS: METOPROLOL TARTRATE 25 MG TAB PO SCH ×3 (10:37→21:00)
[2018-09-15 12:04] LABS: Glucose,Whole Blood 127 mg/dL (75-99)
[2018-09-15] MEDS: cefTRIAXone 2,000 MG in SODIUM CHLORIDE 0.9% 100 ML IVPB SCH (16:10)
[2018-09-15 17:55] LABS: Glucose,Whole Blood 192 mg/dL (75-99)
[2018-09-15] MEDS: AZITHROMYCIN 500 MG in SODIUM CHLORIDE 0.9% 250 ML IVPB SCH (17:57)
--- NOTE | 2018-09-15 20:18 | PN ---
PROGRESS NOTE DATE OF SERVICE: 09/15/18. PRESENTING COMPLAINT: Intubated. INTERVAL HISTORY: This is a patient with advanced COPD, smoker, CHF, admitted with exacerbation of the same. The patient in the ICU, intubated, FiO2 of 50 and a PEEP of 5. The patient is having some trach secretions. Remains on tube feeding at 45 mL an hour; however, the patient is on a propofol drip, sedated. REVIEW OF SYSTEMS: Patient intubated. CURRENT MEDICATIONS: Reviewed that include DuoNeb, IV azithromycin, IV ceftriaxone, IV Solu-Medrol, IV propofol. PHYSICAL EXAMINATION: Temperature 97.2, pulse 93, respiration 22, blood pressure 130/49, pulse ox 91 percent on the vent. GENERAL APPEARANCE: Lying in bed, intubated. EYES: Pupils equal. Conjunctivae normal. HEENT: External appearance of nose and ears normal. Oral cavity, endotracheal tube in place. NECK: JVD unable to assess. Mass not palpable. RESPIRATORY: Effort increased. LUNGS: Diminished breath sounds. CARDIOVASCULAR: 1st and 2nd sounds, no edema. ABDOMEN: Soft, nontender. Liver and spleen not palpable. NEUROLOGICAL: Pupils are equal. Gag reflex is present. INVESTIGATIONS: Accu-Cheks are noted. White count 10.5, hemoglobin 13.8, potassium 3.9, BUN 37, creatinine 0.60. Chest x-ray film, personally reviewed by me shows some mild bilateral infiltrates. ASSESSMENT: 1. Acute severe chronic obstructive pulmonary disease exacerbation in a current smoker, slow to respond. 2. Chronic nicotine dependence. Patient is a cigarette smoker. 3. Acute on chronic congestive heart failure exacerbation from systolic dysfunction, ejection fraction 20%. Remains on IV Lasix. 4. Acute hypoxic respiratory failure from underlying chronic obstructive pulmonary disease requiring ventilator assistance, slow to respond. 5. Coronary artery disease with stent in 2013. 6. Peripheral artery disease with prior fem-fem bypass. 7. Hyperlipidemia. 8. Essential hypertension. 9. Restless legs syndrome. 10.Chronic rotator cuff injury. 11.Gastroesophageal reflux disease. 12.Tube feeding. 13.Status post bronchoscopy. PLAN: Prognosis remains guarded. Continue medication and treatment plan. Supportive care. IV steroids, bronchodilators. Contemplating PEG and tracheostomy. Prognosis guarded. MMODL / IJN: [id number] /
[2018-09-15] MEDS: ATORVASTATIN 20 MG TAB PO SCH (20:21)
[2018-09-15 22:39] LABS: Anion Gap 3 mmol/L; Blood Urea Nitrogen 38 mg/dL (9-20); Calcium 8.2 mg/dL (8.4-10.2); Carbon Dioxide 33 mmol/L (22-30); Chloride 106 mmol/L (98-107); Glucose 139 mg/dL (74-99); Magnesium 2.4 mg/dL (1.6-2.3); Potassium 3.8 mmol/L (3.5-5.1); Sodium 142 mmol/L (137-145)
[2018-09-16] MEDS ORDERED: POTASSIUM BICARBONATE/CIT AC 20 MEQ TABLET.EFF NG-TUBE SCH
[2018-09-16 00:01] LABS: Glucose,Whole Blood 157 mg/dL (75-99)
[2018-09-16] MEDS: methylPREDNISolone SOD SUCCI 125 MG/2 ML VIAL IV SCH ×5 (00:11→23:42)
[2018-09-16] MEDS: PROPOFOL 1,000 MG in EMPTY BAG 1 BAG IV SCH ×7 (00:11→21:50)
[2018-09-16] MEDS: INSULIN ASPART 100 UNIT/ML 1 ML 10 ML VIAL SQ SCH ×5 (00:12→23:42)
[2018-09-16] MEDS: HYDROmorphone 1 MG/ML 1 ML SYRINGE IVP PRN ×6 (00:19→21:45)
[2018-09-16] MEDS: IPRATROPIUM-ALBUTEROL 3 ML NEB INHALATION SCH ×6 (03:14→23:29)
[2018-09-16 04:55] LABS: ABG Base Excess 9.3 mmol/L; ABG HCO3 33 mmol/L (21-25); ABG Oxygen Saturation 94.9 % (94-97); ABG PCO2 49 mmHg (35-45); ABG PH 7.44 (7.35-7.45); ABG PO2 73 mmHg (83-108); ABG TCO2 35 mmol/L (19-24)
[2018-09-16 05:02] LABS: Anion Gap 3 mmol/L; Blood Urea Nitrogen 39 mg/dL (9-20); Calcium 8.6 mg/dL (8.4-10.2); Carbon Dioxide 32 mmol/L (22-30); Chloride 106 mmol/L (98-107); Glucose 176 mg/dL (74-99); Potassium 4.2 mmol/L (3.5-5.1); Sodium 141 mmol/L (137-145)
[2018-09-16] MEDS: SODIUM CHLORIDE 0.9% 1,000 ML IV SCH ×2 (06:45→12:20)
[2018-09-16] MEDS: FORMOTEROL FUMARATE 20 MCG/2 ML NEBU INHALATION SCH ×2 (07:17→18:53)
[2018-09-16] MEDS: BUDESONIDE 1 MG/2 ML NEBU INHALATION SCH ×2 (07:17→18:53)
--- NOTE | 2018-09-16 07:49 | PN ---
PROGRESS NOTE Mr. Dougherty is a 67-year-old male who has a history of severe chronic obstructive lung disease, history of ischemic cardiomyopathy, history of CAD, and peripheral vascular disease. He remains intubated and sedated. He is scheduled to undergo tracheostomy and PEG tube placement tomorrow. He has not been able to be weaned. He continued to be in sinus mechanism. His urine output is stable. He is sedated. There is no evidence of ventricular ectopic activity. He continues to be on aspirin once a day, Lipitor 40 mg daily, furosemide 20 mg IV q.12 hours, Zestril 2.5 mg twice a day, metoprolol tartrate 25 mg twice a day, although he did not get his dose yesterday. PHYSICAL EXAMINATION: Blood pressure 124/60 with a heart rate in the 80s. LUNGS: Clear anteriorly, no wheezes. HEART: Regular rate and rhythm. S1, S2. No S3. No rub. ABDOMEN: Soft, positive bowel sounds, no organomegaly. EXTREMITIES: No edema. LAB DATA: Revealed BUN and creatinine 39 and 0.54. Potassium 4.2. IMPRESSION: 1. Respiratory failure with exacerbation of severe chronic obstructive pulmonary disease. 2. History of ischemic cardiomyopathy with severely impaired left ventricular systolic function with no overt signs of heart failure at this time. 3. History of peripheral vascular disease. 4. Hyperlipidemia. RECOMMENDATION: From the cardiac standpoint, will continue present therapy. His Plavix is on hold, pending his procedure tomorrow. Will follow his heart rate to further adjust his NOELLE inhibitor and beta blockers regimen. MMODL / IJN: [id number] /
--- NOTE | 2018-09-16 07:49 | XR ---
EXAMINATION TYPE: XR chest 1V portable DATE OF EXAM: 09/16/2018 HISTORY: Shortness of breath. COMPARISON: 09/15/2018 TECHNIQUE: Single view of the chest is submitted. FINDINGS: Demonstrated are scattered senescent parenchymal change. Left lower lobe opacity persists. Endotracheal and NG tubes are unchanged. The heart is stable. Hilar and mediastinal structures are within normal limits. Degenerative changes are seen of the dorsal spine. IMPRESSION: 1. Stable appearance of the chest.
[2018-09-16] MEDS: FAMOTIDINE 20 MG/2 ML VIAL IV SCH ×2 (07:53→20:42)
[2018-09-16] MEDS: NICOTINE 21MG/24HR PATCH TRANSDERM SCH (07:53)
[2018-09-16] MEDS: FUROSEMIDE 10 MG/ML 2 ML VIAL IV SCH ×2 (07:54→20:42)
[2018-09-16] MEDS: CHLORHEXIDINE GLUCONATE 15 ML CUP MUCOUS MEM SCH ×2 (07:54→20:42)
[2018-09-16] MEDS: METOPROLOL TARTRATE 25 MG TAB PO SCH ×2 (07:54→20:43)
[2018-09-16] MEDS: ASPIRIN 81 MG PO SCH (07:54)
[2018-09-16] MEDS: ENOXAPARIN 40 MG/0.4 ML SYRINGE SQ SCH (07:54)
[2018-09-16] MEDS: LISINOPRIL 2.5 MG TAB PO SCH ×2 (07:54→20:43)
--- NOTE | 2018-09-16 08:59 | P.PN ---
Subjective Progress Note Date: 09/16/18 Principal diagnosis: Respiratory failure Progress note dated 09/14/2018 67-year-old male with history of acute on chronic hypoxemic and hypercapnic respiratory failure requiring intubation on September 09 for respiratory failure. The patient also has a history of chronic systolic congestive heart failure. He has a history of chronic tobacco dependence, noncompliance with medications, ischemic cardiomyopathy, with an ejection fraction of 20-25%, a previous history of ventilator dependent respiratory failure, CAD with previous stent placements in the right coronary artery and circumflex coronary artery, nonsustained ventricular tachycardia, DVT, PVOD, status post fem-fem bypass, hypertension, hyperlipidemia, left lower lobe pneumonia, status post bronchoscopy and lavage on 09/13/2018. Today, we'll do a daily interruption of sedation. We will place him on pressure support of 12 and CPAP of 5. Volumes and respiratory rates are good. He may not be ready for extubation. Prior to this, he was on the volume assist control mode rate of 22, tidal volume 500, FiO2 50% and PEEP of 5. Arterial blood gases show a PaO2 of 62, a PaCO2 of 50, and if 7.44. He is on a saline IV at 75 mL now, propofol 65 mics per kilogram per minute, and vital high protein at 35 with a goal of 45 mL an hour. Chest x- ray shows a left lower lobe infiltrate with atelectasis. Current microbiologic studies are negative or pending. He is currently on azithromycin and ceftriaxone. His overall prognosis remains poor given his multitude of medical problems as detailed above. Progress note dated 09/15/2018 67-year-old male with a history of acute on chronic hypoxemic and hypercapnic respiratory failure, requiring intubation and mechanical ventilation on September 09. The patient also has a history of chronic systolic heart failure, chronic tobacco dependence, noncompliance with medications, ischemic cardiomyopathy with an ejection fraction of 20-25%, a previous history of ventilator dependent respiratory failure, coronary artery disease with previous stent placements in the right coronary artery and circumflex coronary artery, nonsustained ventricular tachycardia, DVT, PVOD, status post fem-fem bypass, hypertension, hyperlipidemia, left lower lobe pneumonia, and status post bronchoscopy with BAL on 09/13/2018. Yesterday, we attempted a daily interruption of sedation but he did very poorly. We place him on pressure support of 12 and CPAP of 5. After a few minutes. Place him back on the volume assist control mode. Currently, he is on volume assist control, rate of 22, tidal volume 500, FiO2 50 %, and PEEP of 5. Arterial blood gases show a PaO2 of 66 a PaCO2 of 47 and a pH 7.46. His chest x-ray showed bibasilar infiltrates, left greater than right. He is on propofol at 35 mcg/kg/m, saline IV at 75 mL an hour and vital high protein at 45 with a goal of 45 mL an hour. A consultation has been placed with surgery for possible tracheostomy and PEG tube placement on . Progress note dated 09/16/2018 67-year-old male with a history of acute on chronic hypoxemic and hypercapnic respiratory failure, which required intubation and mechanical ventilation on September 09. The patient also has a history of chronic systolic heart failure, chronic tobacco dependence, noncompliance with medications, ischemic cardiomyopathy with an ejection fraction of 20-25%, a previous history of ventilator dependent respiratory failure, CAD with previous stenting, nonsustained ventricular tachycardia, DVT, PVOD, status post fem-fem bypass, hypertension, hyperlipidemia and left lower lobe pneumonia. The patient is also status post bronchoscopy with BAL on 09/13/2018. The patient's vent settings include the volume assist control mode with a rate of 22, tidal volume 500, FiO2 50%, and PEEP of 5. Arterial blood gases show a PaO2 of 73, a PaCO2 49 and a pH is 7.44. The patient spent 1-1/2 hours on pressure support 8 CPAP of 5 yesterday September 15. His IVs included saline at 75 mL an hour, propofol at 65 mics per kilogram per minute, and vital high protein at 45 with a goal of 45 mL an hour. The patient is scheduled for a tracheostomy and PEG tube tomorrow and I think that should occur. I don't believe he is going to wean anytime soon., Thus far, all microbiologic studies are negative or pending. Laboratory data includes a sodium of 141, potassium 4.2, chlorides 106, and a CO2 of 32. His anion gap is normal, with a BUN of 39 and creatinine of 0.54. Chest x-ray continues to show a infiltrate or atelectasis with a small effusion in the left lower lung, and a relatively clear right lung. Objective - Vital Signs Vital signs: Vital Signs Temp 98.4 F 09/16/18 00:00 Pulse 76 09/16/18 07:44 Resp 23 09/16/18 07:00 BP 138/67 09/16/18 07:00 Pulse Ox 92 L 09/16/18 07:00 Intake & Output 09/15/18 09/16/18 09/16/18 18:59 06:59 18:59 Intake Total 2832.393 1736.479 167.267 Output Total 1570 1310 45 Balance 1262.393 426.479 122.267 Weight 87 kg 86.7 kg Intake: IV 1286 936 78 Azithromycin 500 mg In 250 Sodium Chloride 0.9% 250 ml @ 250 mls/hr IVPB Q24H [facility] Rx#:[id number] Pressure bag of 0.9 NaCl- 36 36 3 Sodium Chloride 0.9% 1, 900 900 75 000 ml @ 75 mls/hr IV . [id number] [facility] Rx#:[id number] cefTRIAXone 2,000 mg In 100 Sodium Chloride 0.9% 100 ml @ 100 mls/hr IVPB Q24H [facility] Rx#:[id number] Intake, IV Titration 691.393 200.479 44.267 Amount Potassium Chloride 10 meq 200 In Water For Injection 1 100ml.bag @ 100 mls/hr IVPB Q1H [facility] Rx#: [id number] Potassium Chloride 10 meq 200 In Water For Injection 1 100ml.bag @ 100 mls/hr IVPB Q1H [facility] Rx#: [id number] Propofol 1,000 mg In 291.393 200.479 44.267 Empty Bag 1 bag @ Titrate IV .Q0M [facility] Rx#: [id number] Tube Feeding 765 540 45 Other 90 60 Output: Urine 1570 1310 45 Other: Voiding Method Indwelling Catheter Indwelling Catheter ABP, PAP, CO, CI - Last Documented Arterial Blood Pressure 125/56 - Exam No acute distress, sedated, with a endotracheal tube and NG tube in place. HEENT examination is grossly unremarkable. Mucous membranes are moist. Neck supple. Full range of motion. No adenopathy thyromegaly or neck vein distention. Cardiovascular examination reveals regular rhythm rate. S1-S2 normal. No S3 or S4. No discernible murmur noted. Heart sounds are distant. Lungs reveal coarse bilateral breath sounds. Coarse rhonchi and wheezes are appreciated. Sounds are diminished throughout. Breath sounds are equal bilaterally. No distinct crackles are noted. Lung sounds today, are a bit worse than yesterday's examination. Abdomen soft and bowel sounds are heard. No masses or tenderness. Extremities are intact. No cyanosis clubbing or edema. Skin is without rash or lesion. Neurologic examination is very difficult to assess given the fact that he is on propofol at 65 mcg/kg/m. - Labs CBC & Chem 7: 09/15/18 04:17 09/16/18 04:35 Labs: Abnormal Lab Results - Last 24 Hours (Table) 09/13/18 09/15/18 09/15/18 Range/Units 09:48 12:02 17:54 ABG pCO2 (35-45) mmHg ABG pO2 (83-108) mmHg ABG HCO3 (21-25) mmol/L ABG Total CO2 (19-24) mmol/L Carbon Dioxide (22-30) mmol/L BUN (9-20) mg/dL Creatinine (0.66-1.25) mg/dL Glucose (74-99) mg/dL POC Glucose (mg/dL) 127 H 192 H (75-99) mg/dL Calcium (8.4-10.2) mg/dL Magnesium (1.6-2.3) mg/dL Viral Test See Below H 09/15/18 09/15/18 09/16/18 Range/Units 22:15 23:59 04:35 ABG pCO2 (35-45) mmHg ABG pO2 (83-108) mmHg ABG HCO3 (21-25) mmol/L ABG Total CO2 (19-24) mmol/L Carbon Dioxide 33 H 32 H (22-30) mmol/L BUN 38 H 39 H (9-20) mg/dL Creatinine 0.56 L 0.54 L (0.66-1.25) mg/dL Glucose 139 H 176 H (74-99) mg/dL POC Glucose (mg/dL) 157 H (75-99) mg/dL Calcium 8.2 L (8.4-10.2) mg/dL Magnesium 2.4 H (1.6-2.3) mg/dL Viral Test 09/16/18 Range/Units 04:50 ABG pCO2 49 H (35-45) mmHg ABG pO2 73 L (83-108) mmHg ABG HCO3 33 H (21-25) mmol/L ABG Total CO2 35 H (19-24) mmol/L Carbon Dioxide (22-30) mmol/L BUN (9-20) mg/dL Creatinine (0.66-1.25) mg/dL Glucose (74-99) mg/dL POC Glucose (mg/dL) (75-99) mg/dL Calcium (8.4-10.2) mg/dL Magnesium (1.6-2.3) mg/dL Viral Test Microbiology - Last 24 Hours (Table) 09/09/18 20:30 Blood Culture - Final Blood No Growth after 144 hours 09/13/18 09:48 Gram Stain - Final Bronchoalviolar Lavage - Left Bronchial Washings Culture - Final Assessment and Plan Assessment: Assessment Acute hypoxemic and hypercapnic respiratory failure, secondary to severe COPD exacerbation and chronic systolic CHF exacerbation, requiring intubation and mechanical ventilation on September 09 Status post bronchoscopy for sampling of the lower respiratory tract and removal of airway secretions on September 13. Anticipated tracheostomy and PEG tube placement on 09/17/2018. Severe end-stage COPD History of chronic and ongoing tobacco dependence Severe ischemic cardiomyopathy with ejection fraction of 20-25% History of noncompliance with medications and follow-ups Previous history of respiratory failure with ventilator dependence Coronary artery disease, status post stent placements in the right coronary artery and circumflex coronary artery History of nonsustained ventricular tachycardia History of DVT Status post fem-fem bypass for peripheral vascular disease History of essential hypertension History of hyperlipidemia Probable left lower lobe pneumonia Plan: Plan dated 09/14/2018 The patient remains on mechanical ventilator. We switch him from the volume assist control mode to the pressure support mode. He is on PSV 12 and CPAP of 5. He remains on 50%. He remains on tube feeds. Microbiology is currently either negative or pending. White count 10.4, hemoglobin 13.8, hematocrit 44.3 , and platelet count 125,000. Sodium potassium chloride are all normal. CO2 is 33. BUN is 35 with a creatinine 0.56. His medications are reviewed. Remains on albuterol and Atrovent updrafts every 4 hours around the clock as well as Pulmicort 1 mg and formoterol 20 g. Is getting all the other usual medications. His prognosis is poor. He apparently only tolerated pressure support for about 12 minutes. He was placed back on the volume assist control mode and be sedated. A consultation will be given to the surgeon for possible tracheostomy and PEG tube placement. Prognosis is very poor. Critical care time 35 minutes Plan dated 09/15/2018 Again, we will attempt a daily eruption of sedation with a pressure support of 5 and CPAP of 5. We have put a consultation in the surgery for possible tracheostomy and PEG tube placement to be done on . His chest x-ray shows evidence of bibasal pneumonia, left greater than right. Microbiology is negative. White count 10.5, hemoglobin 13.8, hematocrit 43 and platelet count 132,000. Sodium and potassium and chloride are all normal. CO2 is 32. Anion gap is normal. BUN is 37 with a creatinine 0.60. The patient's medications are reviewed. He remains on DuoNeb nebs every 4 hours around the clock, Rocephin, azithromycin, Pulmicort updrafts mixed with formoterol, and Solu- Medrol. His overall prognosis is poor. The patient has not really taken very good care of himself. We will continue supportive care. Possible tracheostomy and PEG tube placement on . Critical care time 36 minutes Plan dated 09/16/2018 Today, we will do a daily interruption of sedation as we always do in these intubated patient's and assess the patient for a spontaneous breathing trial. Having said that, the patient has not done well previously on his spontaneous breathing trials. Nonetheless, we'll try again today. He is scheduled for tracheostomy and PEG tube tomorrow with one of the surgeons. I think that's appropriate. His labs and x-rays are reviewed. His chest x-ray continues to show a infiltrate/atelectasis and small effusion at the left lung base. Microbiology is as far negative. His medications are reviewed and are appropriate. Prognosis is guarded. We'll continue support with all the current treatments. Critical care time 33 minutes Time with Patient: Greater than 30
[2018-09-16 10:17] LABS: Basophils % (A) 0 %; Eosinophils # (A) 0.1 k/uL (0-0.7); Eosinophils % (A) 1 %; HCT 42.1 % (39.0-53.0); HGB 13.4 gm/dL (13.0-17.5); Lymphocytes # (A) 0.4 k/uL (1.0-4.8); Lymphocytes % (A) 4 %; MCH 32.8 pg (25.0-35.0); MCHC 31.8 g/dL (31.0-37.0); MCV 103.3 fL (80.0-100.0); Macrocytosis Slight; Mean Platelet Volume 9.3; Monocytes # (A) 0.4 k/uL (0-1.0); Monocytes % (A) 4 %; Neutrophils # (A) 10.2 k/uL (1.3-7.7); Neutrophils % (A) 92 %; Platelet Count 128 k/uL (150-450); RBC 4.08 m/uL (4.30-5.90); RDW 13.3 % (11.5-15.5); WBC 11.1 k/uL (3.8-10.6)
--- NOTE | 2018-09-16 11:16 | P.PN ---
Subjective On-call hospitalist covering Dr. Negron starting 09/16/2018 This is a 67 years old male with past medical history of coronary artery disease , congestive heart failure, COPD, DVT, GERD, hyperlipidemia, hypertension, myocardial infarction, who presents because of severe dyspnea and hypoxia needed intubation. Patient remains intubated in the ICU and cannot provide to his history which was obtained from the staff and medical records. Aspirate was patient also have ischemic cardiomyopathy with ejection fraction of 20-25%. Critical care team are following the patient. Patient is planned for EGD and PEG tube tomorrow already. Patient denied the fluids and propofol. Labs showing mild leukocytosis of 11.1 K, mild low platelets at 128. Sodium 141, potassium 4.2, creatinine 0.5, Review of systems: N/a Medication:- albuterol 0.5 mg, ipratropium 3 mg, aspirin 81 mg Lipitor 40 mg, Zithromax 500 mg, Pulmicort 1 mg, ceftriaxone 2000 mg, chlorhexidine 15 mL, Lovenox 40 mg, Pepcid 20 mg, Lasix 20 mg, NovoLog sliding scale, Zestril 2.5 mg , Solu-Medrol 60 mg, Lopressor 25 mg, nicotine 21 mg, propofol 1000 mg, Requip 2 mg, Objective - Vital Signs Vital signs: Vital Signs Temp 99.0 F 09/16/18 08:00 Pulse 76 09/16/18 10:00 Resp 22 09/16/18 10:00 BP 138/67 09/16/18 07:00 Pulse Ox 94 L 09/16/18 10:00 Intake & Output 09/15/18 09/16/18 09/16/18 18:59 06:59 18:59 Intake Total 2832.393 1736.479 787.693 Output Total 1570 1310 825 Balance 1262.393 426.479 -37.307 Weight 87 kg 86.7 kg Intake: IV 1286 936 312 Azithromycin 500 mg In 250 Sodium Chloride 0.9% 250 ml @ 250 mls/hr IVPB Q24H [facility] Rx#:[id number] Pressure bag of 0.9 NaCl- 36 36 12 Sodium Chloride 0.9% 1, 900 900 300 000 ml @ 75 mls/hr IV . [id number] [facility] Rx#:[id number] cefTRIAXone 2,000 mg In 100 Sodium Chloride 0.9% 100 ml @ 100 mls/hr IVPB Q24H [facility] Rx#:[id number] Intake, IV Titration 691.393 200.479 145.693 Amount Potassium Chloride 10 meq 200 In Water For Injection 1 100ml.bag @ 100 mls/hr IVPB Q1H [facility] Rx#: [id number] Potassium Chloride 10 meq 200 In Water For Injection 1 100ml.bag @ 100 mls/hr IVPB Q1H [facility] Rx#: [id number] Propofol 1,000 mg In 291.393 200.479 145.693 Empty Bag 1 bag @ Titrate IV .Q0M [facility] Rx#: [id number] Tube Feeding 765 540 270 Other 90 60 60 Output: Urine 1570 1310 825 Other: Voiding Method Indwelling Catheter Indwelling Catheter Indwelling Catheter ABP, PAP, CO, CI - Last Documented Arterial Blood Pressure 141/64 - Exam GENERAL: Patient is intubated HEENT: Pupils are round and equally reacting to light. EOMI. No scleral icterus. No conjunctival pallor. Normocephalic, atraumatic. No pharyngeal erythema. No thyromegaly. CARDIOVASCULAR: S1 and S2 present. No murmurs, rubs, or gallops. PULMONARY: Chest is clear to auscultation, no wheezing or crackles. ABDOMEN: Soft, nontender, nondistended, normoactive bowel sounds. No palpable organomegaly. MUSCULOSKELETAL: No joint swelling or deformity. EXTREMITIES: No cyanosis, clubbing, or pedal edema. NEUROLOGICAL: Gross neurological examination did not reveal any focal deficits. SKIN: No rashes. - Labs CBC & Chem 7: 09/16/18 04:35 09/16/18 04:35 Labs: Abnormal Lab Results - Last 24 Hours (Table) 09/15/18 09/15/18 09/15/18 Range/Units 12:02 17:54 22:15 WBC (3.8-10.6) k/uL RBC (4.30-5.90) m/uL MCV (80.0-100.0) fL Plt Count (150-450) k/uL Neutrophils # (1.3-7.7) k/uL Lymphocytes # (1.0-4.8) k/uL ABG pCO2 (35-45) mmHg ABG pO2 (83-108) mmHg ABG HCO3 (21-25) mmol/L ABG Total CO2 (19-24) mmol/L Carbon Dioxide 33 H (22-30) mmol/L BUN 38 H (9-20) mg/dL Creatinine 0.56 L (0.66-1.25) mg/dL Glucose 139 H (74-99) mg/dL POC Glucose (mg/dL) 127 H 192 H (75-99) mg/dL Calcium 8.2 L (8.4-10.2) mg/dL Magnesium 2.4 H (1.6-2.3) mg/dL 09/15/18 09/16/18 09/16/18 Range/Units 23:59 04:35 04:35 WBC 11.1 H (3.8-10.6) k/uL RBC 4.08 L (4.30-5.90) m/uL MCV 103.3 H (80.0-100.0) fL Plt Count 128 L (150-450) k/uL Neutrophils # 10.2 H (1.3-7.7) k/uL Lymphocytes # 0.4 L (1.0-4.8) k/uL ABG pCO2 (35-45) mmHg ABG pO2 (83-108) mmHg ABG HCO3 (21-25) mmol/L ABG Total CO2 (19-24) mmol/L Carbon Dioxide 32 H (22-30) mmol/L BUN 39 H (9-20) mg/dL Creatinine 0.54 L (0.66-1.25) mg/dL Glucose 176 H (74-99) mg/dL POC Glucose (mg/dL) 157 H (75-99) mg/dL Calcium (8.4-10.2) mg/dL Magnesium (1.6-2.3) mg/dL 09/16/18 Range/Units 04:50 WBC (3.8-10.6) k/uL RBC (4.30-5.90) m/uL MCV (80.0-100.0) fL Plt Count (150-450) k/uL Neutrophils # (1.3-7.7) k/uL Lymphocytes # (1.0-4.8) k/uL ABG pCO2 49 H (35-45) mmHg ABG pO2 73 L (83-108) mmHg ABG HCO3 33 H (21-25) mmol/L ABG Total CO2 35 H (19-24) mmol/L Carbon Dioxide (22-30) mmol/L BUN (9-20) mg/dL Creatinine (0.66-1.25) mg/dL Glucose (74-99) mg/dL POC Glucose (mg/dL) (75-99) mg/dL Calcium (8.4-10.2) mg/dL Magnesium (1.6-2.3) mg/dL Microbiology - Last 24 Hours (Table) 09/09/18 20:30 Blood Culture - Final Blood No Growth after 144 hours 09/13/18 09:48 Gram Stain - Final Bronchoalviolar Lavage - Left Bronchial Washings Culture - Final Assessment and Plan Assessment: Acute hypoxemic, hypercapnic respiratory failure secondary to severe COPD exacerbation and acute on chronic systolic CHF exacerbation. Patient is status post intubation on mechanical ventilation End stage COPD, as per the pulmonary team Ischemic cardiomyopathy with ejection fraction of 20-25% History of nicotine dependence History of coronary artery disease, status post stenting History of nonsustained ventricular tachycardia History of DVT Peripheral vascular disease Essential hypertension Hyperlipidemia Possible left lower lobe pneumonia Plan: This is a 67 years old male who presents with severe COPD requiring intubation, with possible pneumonia and CHF. Critical team/pulmonary team are following the patient. Patient is currently intubated in the ICU. Patient will benefit from Peg//tracheostomy.Labs and medication were resumed. Continue same treatment. Continue with symptomatic treatment. Resume home medication. Monitor lytes and vitals. DVT and GI prophylaxis. Further recommendationsof the clinical course of the patient DVT prophylaxis: Subcutaneous Lovenox GI Prophylaxis: Pepcid Prognosis is guarded and poor
[2018-09-16 12:08] LABS: Glucose,Whole Blood 164 mg/dL (75-99)
--- NOTE | 2018-09-16 12:47 | CDI ---
Last Revision, October 2017 Documentation Clarification Form Date: 09/16/18 From: Mera Garay RN Admit Date: 09/10/2018 12:12:00 AM Patient Name: Hansel Dougherty Visit Number: [id number] ATTENTION: The Clinical Documentation Specialists (CDI) and [facility] Coding Staff appreciate your assistance in clarifying documentation. Please respond to the clarification below the line at the bottom and electronically sign. The CDI & [facility] Coding staff will review the response and follow-up if needed. Please note: Queries are made part of the Legal Health Record. If you have any questions, please contact the author of this message via ITS. Reginald Morillo MD, Pneumonia was documented in your notes on: 09/16 and throughout the documentation. Patient admitted with ACUTE exacerbation of COPD respiratory failure History/Risk Factors: PAD, hyperlipidemia, restless legs syndrome, GERD, COPD, CHF, smoker, HTN, CAD, DVT Clinical Indicators: WBC on admission: 17.6 X-ray: 09/15 increasing left lower lobe infiltrate and or left pleural effusion Lung/Breathing assessment: expiratory wheeze Treatment: Antibiotics: Azithromycin IVPB, Ceftriaxone Breathing Tx: Ventolin, Duoneb, Pulmicort, Perforomist, Atrovent In order to capture the severity of condition, please clarify if the condition signifies and you are treating for: Aspiration Pneumonia, identify if: Bacterial Pneumonia, specify causal organism (if known) Gram Negative Pneumonia Other bacteria (please specify) Viral Pneumonia, specify casual organism (if known) Ventilator Associated Pneumonia Healthcare Acquired Pneumonia/Pneumonia, unspecified Other, please specify Unable to determine Most likely patient has bacterial pneumonia, and antibiotics for covering for gram-negative and atypical microorganisms MTDD
[2018-09-16] MEDS: cefTRIAXone 2,000 MG in SODIUM CHLORIDE 0.9% 100 ML IVPB SCH (15:17)
[2018-09-16] MEDS: AZITHROMYCIN 500 MG in SODIUM CHLORIDE 0.9% 250 ML IVPB SCH (17:01)
[2018-09-16 18:27] LABS: Glucose,Whole Blood 155 mg/dL (75-99)
[2018-09-16] MEDS: ATORVASTATIN 20 MG TAB PO SCH (20:43)
[2018-09-16 23:39] LABS: Glucose,Whole Blood 143 mg/dL (75-99)
[2018-09-17] MEDS: PROPOFOL 1,000 MG in EMPTY BAG 1 BAG IV SCH ×8 (00:48→21:59)
[2018-09-17] MEDS: HYDROmorphone 1 MG/ML 1 ML SYRINGE IVP PRN ×4 (01:07→18:44)
[2018-09-17] MEDS: IPRATROPIUM-ALBUTEROL 3 ML NEB INHALATION SCH ×6 (03:24→23:13)
[2018-09-17 03:53] LABS: Basophils % (A) 0 %; Eosinophils # (A) 0.1 k/uL (0-0.7); Eosinophils % (A) 1 %; HCT 41.9 % (39.0-53.0); HGB 13.3 gm/dL (13.0-17.5); Lymphocytes # (A) 0.5 k/uL (1.0-4.8); Lymphocytes % (A) 4 %; MCH 32.6 pg (25.0-35.0); MCHC 31.7 g/dL (31.0-37.0); MCV 102.9 fL (80.0-100.0); Macrocytosis Slight; Mean Platelet Volume 8.1; Monocytes # (A) 0.4 k/uL (0-1.0); Monocytes % (A) 3 %; Neutrophils # (A) 10.2 k/uL (1.3-7.7); Neutrophils % (A) 91 %; Platelet Count 131 k/uL (150-450); RBC 4.07 m/uL (4.30-5.90); RDW 13.2 % (11.5-15.5); WBC 11.3 k/uL (3.8-10.6)
[2018-09-17 04:06] LABS: Anion Gap 2 mmol/L; Blood Urea Nitrogen 37 mg/dL (9-20); Calcium 8.5 mg/dL (8.4-10.2); Carbon Dioxide 31 mmol/L (22-30); Chloride 106 mmol/L (98-107); Glucose 144 mg/dL (74-99); Phosphorus 3.9 mg/dL (2.5-4.5); Potassium 4.1 mmol/L (3.5-5.1); Sodium 139 mmol/L (137-145)
[2018-09-17 05:18] LABS: Glucose,Whole Blood 145 mg/dL (75-99)
[2018-09-17] MEDS: SODIUM CHLORIDE 0.9% 1,000 ML IV SCH ×2 (05:20→21:50)
[2018-09-17] MEDS: INSULIN ASPART 100 UNIT/ML 1 ML 10 ML VIAL SQ SCH ×3 (05:20→18:43)
[2018-09-17] MEDS: methylPREDNISolone SOD SUCCI 125 MG/2 ML VIAL IV SCH ×3 (05:20→17:04)
[2018-09-17 05:37] LABS: ABG Base Excess 10.2 mmol/L; ABG HCO3 34 mmol/L (21-25); ABG Oxygen Saturation 94.3 % (94-97); ABG PCO2 47 mmHg (35-45); ABG PH 7.46 (7.35-7.45); ABG PO2 70 mmHg (83-108); ABG TCO2 35 mmol/L (19-24)
--- NOTE | 2018-09-17 06:15 | XR ---
EXAMINATION TYPE: XR chest 1V portable DATE OF EXAM: 09/17/2018 CLINICAL HISTORY: Difficulty breathing progress study. TECHNIQUE: Single AP portable semiupright view of the chest is obtained. COMPARISON: Chest x-ray from one day earlier and older studies. CTA chest September 09, 2018. FINDINGS: An endotracheal tube and orogastric tube are stable in appearance. There is background chr onic emphysematous change with persistent left basilar opacity. Atherosclerotic thoracic aorta is red emonstrated. Right lung remains clear. Osseous structures are intact. IMPRESSION: Overall stable findings from one day earlier, cardiomegaly with left basilar opacity fe lt to reflect atelectasis and/or infiltrate and probable small right pleural effusion all redemonstra [id number].
--- NOTE | 2018-09-17 07:37 | P.PN ---
Subjective Progress Note Date: 09/17/18 Principal diagnosis: Respiratory failure Progress note dated 09/14/2018 67-year-old male with history of acute on chronic hypoxemic and hypercapnic respiratory failure requiring intubation on September 09 for respiratory failure. The patient also has a history of chronic systolic congestive heart failure. He has a history of chronic tobacco dependence, noncompliance with medications, ischemic cardiomyopathy, with an ejection fraction of 20-25%, a previous history of ventilator dependent respiratory failure, CAD with previous stent placements in the right coronary artery and circumflex coronary artery, nonsustained ventricular tachycardia, DVT, PVOD, status post fem-fem bypass, hypertension, hyperlipidemia, left lower lobe pneumonia, status post bronchoscopy and lavage on 09/13/2018. Today, we'll do a daily interruption of sedation. We will place him on pressure support of 12 and CPAP of 5. Volumes and respiratory rates are good. He may not be ready for extubation. Prior to this, he was on the volume assist control mode rate of 22, tidal volume 500, FiO2 50% and PEEP of 5. Arterial blood gases show a PaO2 of 62, a PaCO2 of 50, and if 7.44. He is on a saline IV at 75 mL now, propofol 65 mics per kilogram per minute, and vital high protein at 35 with a goal of 45 mL an hour. Chest x- ray shows a left lower lobe infiltrate with atelectasis. Current microbiologic studies are negative or pending. He is currently on azithromycin and ceftriaxone. His overall prognosis remains poor given his multitude of medical problems as detailed above. Progress note dated 09/15/2018 67-year-old male with a history of acute on chronic hypoxemic and hypercapnic respiratory failure, requiring intubation and mechanical ventilation on September 09. The patient also has a history of chronic systolic heart failure, chronic tobacco dependence, noncompliance with medications, ischemic cardiomyopathy with an ejection fraction of 20-25%, a previous history of ventilator dependent respiratory failure, coronary artery disease with previous stent placements in the right coronary artery and circumflex coronary artery, nonsustained ventricular tachycardia, DVT, PVOD, status post fem-fem bypass, hypertension, hyperlipidemia, left lower lobe pneumonia, and status post bronchoscopy with BAL on 09/13/2018. Yesterday, we attempted a daily interruption of sedation but he did very poorly. We place him on pressure support of 12 and CPAP of 5. After a few minutes. Place him back on the volume assist control mode. Currently, he is on volume assist control, rate of 22, tidal volume 500, FiO2 50 %, and PEEP of 5. Arterial blood gases show a PaO2 of 66 a PaCO2 of 47 and a pH 7.46. His chest x-ray showed bibasilar infiltrates, left greater than right. He is on propofol at 35 mcg/kg/m, saline IV at 75 mL an hour and vital high protein at 45 with a goal of 45 mL an hour. A consultation has been placed with surgery for possible tracheostomy and PEG tube placement on . Progress note dated 09/16/2018 67-year-old male with a history of acute on chronic hypoxemic and hypercapnic respiratory failure, which required intubation and mechanical ventilation on September 09. The patient also has a history of chronic systolic heart failure, chronic tobacco dependence, noncompliance with medications, ischemic cardiomyopathy with an ejection fraction of 20-25%, a previous history of ventilator dependent respiratory failure, CAD with previous stenting, nonsustained ventricular tachycardia, DVT, PVOD, status post fem-fem bypass, hypertension, hyperlipidemia and left lower lobe pneumonia. The patient is also status post bronchoscopy with BAL on 09/13/2018. The patient's vent settings include the volume assist control mode with a rate of 22, tidal volume 500, FiO2 50%, and PEEP of 5. Arterial blood gases show a PaO2 of 73, a PaCO2 49 and a pH is 7.44. The patient spent 1-1/2 hours on pressure support 8 CPAP of 5 yesterday September 15. His IVs included saline at 75 mL an hour, propofol at 65 mics per kilogram per minute, and vital high protein at 45 with a goal of 45 mL an hour. The patient is scheduled for a tracheostomy and PEG tube tomorrow and I think that should occur. I don't believe he is going to wean anytime soon., Thus far, all microbiologic studies are negative or pending. Laboratory data includes a sodium of 141, potassium 4.2, chlorides 106, and a CO2 of 32. His anion gap is normal, with a BUN of 39 and creatinine of 0.54. Chest x-ray continues to show a infiltrate or atelectasis with a small effusion in the left lower lung, and a relatively clear right lung. Progress note dated 09/17/2018 67-year-old male with a history of acute on chronic hypoxemic and hypercapnic respiratory failure requiring intubation and mechanical ventilation on September 09. Unfortunately, despite daily interruption's of sedation and spontaneous breathing trials, the patient has not been able to be extubated. Today, he will have a tracheostomy and PEG tube placement one of the thoracic surgeons. He's currently on the volume assist control mode with a rate of 22, tidal volume 500, FiO2 50%, and a PEEP of 5. Arterial blood gases show a PaO2 of 70, a PaCO2 of 47 and a pH of 7.46. He is getting saline at 75 mL an hour propofol 60 mikes per kilogram per minute and tube feeds are on hold. Chest x-ray continues to show a left lower lobe pneumonia. Microbiologic studies are thus far negative. There was some yeast in his bronchial washings likely a contaminant. He remains on Rocephin and Zithromax as antibiotic coverage. White count 11.3, hemoglobin 13.3, hematocrit 41.9 and platelet count 131,000. Sodium 139, potassium 4.1, chlorides 106, CO2 31, anion gap is normal, BUN 37 and creatinine 0.57. Medications are reviewed. The patient's past medical history is quite extensive and includes among other things, chronic systolic heart failure, chronic tobacco dependence, noncompliance with medications, ischemic cardiomyopathy, ejection fraction 20-25%, a previous history of ventilator dependent respiratory failure, CAD with previous stenting, nonsustained ventricular tachycardia, DVT, PVO D, some/femoral bypass, hypertension, hyperlipidemia, and the pneumonia. Objective - Vital Signs Vital signs: Vital Signs Temp 99.5 F 09/17/18 04:00 Pulse 55 L 09/17/18 07:00 Resp 22 09/17/18 07:00 BP 138/67 09/16/18 07:00 Pulse Ox 95 09/17/18 07:00 Intake & Output 09/16/18 09/17/18 09/17/18 18:59 06:59 18:59 Intake Total 2311.253 1713.623 78 Output Total 1385 1260 30 Balance 926.253 453.623 48 Weight 86.7 kg 89 kg Intake: IV 1186 936 78 Azithromycin 500 mg In 250 Sodium Chloride 0.9% 250 ml @ 250 mls/hr IVPB Q24H [facility] Rx#:[id number] Pressure bag of 0.9 NaCl- 36 36 3 Sodium Chloride 0.9% 1, 800 900 75 000 ml @ 75 mls/hr IV . [id number] [facility] Rx#:[id number] cefTRIAXone 2,000 mg In 100 Sodium Chloride 0.9% 100 ml @ 100 mls/hr IVPB Q24H [facility] Rx#:[id number] Intake, IV Titration 390.253 357.623 Amount Propofol 1,000 mg In 390.253 357.623 Empty Bag 1 bag @ Titrate IV .Q0M [facility] Rx#: [id number] Tube Feeding 675 360 Other 60 60 Output: Urine 1385 1260 30 Other: Voiding Method Indwelling Catheter Indwelling Catheter # Bowel Movements 1 ABP, PAP, CO, CI - Last Documented Arterial Blood Pressure 122/51 - Exam No acute distress, sedated, with a endotracheal tube and NG tube in place. HEENT examination is grossly unremarkable. Mucous membranes are moist. Neck supple. Full range of motion. No adenopathy thyromegaly or neck vein distention. Cardiovascular examination reveals regular rhythm rate. S1-S2 normal. No S3 or S4. No discernible murmur noted. Heart sounds are distant. Lungs reveal coarse diffuse bilateral inspiratory and expiratory rhonchi and wheezes. No crackles are noted. Breath sounds equal bilaterally. Sounds have really not changed over the course of a couple days on this patient. Abdomen soft and bowel sounds are heard. No masses or tenderness. Extremities are intact. No cyanosis clubbing or edema. Skin is without rash or lesion. Neurologic examination is very difficult to assess given the fact that he is on propofol at 60 mcg/kg/m. - Labs CBC & Chem 7: 09/17/18 03:45 09/17/18 03:45 Labs: Abnormal Lab Results - Last 24 Hours (Table) 09/16/18 09/16/18 09/16/18 Range/Units 04:35 12:07 18:07 WBC 11.1 H (3.8-10.6) k/uL RBC 4.08 L (4.30-5.90) m/uL MCV 103.3 H (80.0-100.0) fL Plt Count 128 L (150-450) k/uL Neutrophils # 10.2 H (1.3-7.7) k/uL Lymphocytes # 0.4 L (1.0-4.8) k/uL ABG pH (7.35-7.45) ABG pCO2 (35-45) mmHg ABG pO2 (83-108) mmHg ABG HCO3 (21-25) mmol/L ABG Total CO2 (19-24) mmol/L Carbon Dioxide (22-30) mmol/L BUN (9-20) mg/dL Creatinine (0.66-1.25) mg/dL Glucose (74-99) mg/dL POC Glucose (mg/dL) 164 H 155 H (75-99) mg/dL Magnesium (1.6-2.3) mg/dL 09/16/18 09/17/18 09/17/18 Range/Units 23:37 03:45 03:45 WBC 11.3 H (3.8-10.6) k/uL RBC 4.07 L (4.30-5.90) m/uL MCV 102.9 H (80.0-100.0) fL Plt Count 131 L (150-450) k/uL Neutrophils # 10.2 H (1.3-7.7) k/uL Lymphocytes # 0.5 L (1.0-4.8) k/uL ABG pH (7.35-7.45) ABG pCO2 (35-45) mmHg ABG pO2 (83-108) mmHg ABG HCO3 (21-25) mmol/L ABG Total CO2 (19-24) mmol/L Carbon Dioxide 31 H (22-30) mmol/L BUN 37 H (9-20) mg/dL Creatinine 0.57 L (0.66-1.25) mg/dL Glucose 144 H (74-99) mg/dL POC Glucose (mg/dL) 143 H (75-99) mg/dL Magnesium (1.6-2.3) mg/dL 09/17/18 09/17/18 09/17/18 Range/Units 03:45 05:16 05:29 WBC (3.8-10.6) k/uL RBC (4.30-5.90) m/uL MCV (80.0-100.0) fL Plt Count (150-450) k/uL Neutrophils # (1.3-7.7) k/uL Lymphocytes # (1.0-4.8) k/uL ABG pH 7.46 H (7.35-7.45) ABG pCO2 47 H (35-45) mmHg ABG pO2 70 L (83-108) mmHg ABG HCO3 34 H (21-25) mmol/L ABG Total CO2 35 H (19-24) mmol/L Carbon Dioxide (22-30) mmol/L BUN (9-20) mg/dL Creatinine (0.66-1.25) mg/dL Glucose (74-99) mg/dL POC Glucose (mg/dL) 145 H (75-99) mg/dL Magnesium 2.4 H (1.6-2.3) mg/dL Assessment and Plan Assessment: Assessment Acute hypoxemic and hypercapnic respiratory failure, secondary to severe COPD exacerbation and chronic systolic CHF exacerbation, requiring intubation and mechanical ventilation on September 09 Status post bronchoscopy for sampling of the lower respiratory tract and removal of airway secretions on September 13. Anticipated tracheostomy and PEG tube placement on 09/17/2018. Severe end-stage COPD History of chronic and ongoing tobacco dependence Severe ischemic cardiomyopathy with ejection fraction of 20-25% History of noncompliance with medications and follow-ups Previous history of respiratory failure with ventilator dependence Coronary artery disease, status post stent placements in the right coronary artery and circumflex coronary artery History of nonsustained ventricular tachycardia History of DVT Status post fem-fem bypass for peripheral vascular disease History of essential hypertension History of hyperlipidemia Probable left lower lobe pneumonia Plan: Plan dated 09/14/2018 The patient remains on mechanical ventilator. We switch him from the volume assist control mode to the pressure support mode. He is on PSV 12 and CPAP of 5. He remains on 50%. He remains on tube feeds. Microbiology is currently either negative or pending. White count 10.4, hemoglobin 13.8, hematocrit 44.3 , and platelet count 125,000. Sodium potassium chloride are all normal. CO2 is 33. BUN is 35 with a creatinine 0.56. His medications are reviewed. Remains on albuterol and Atrovent updrafts every 4 hours around the clock as well as Pulmicort 1 mg and formoterol 20 g. Is getting all the other usual medications. His prognosis is poor. He apparently only tolerated pressure support for about 12 minutes. He was placed back on the volume assist control mode and be sedated. A consultation will be given to the surgeon for possible tracheostomy and PEG tube placement. Prognosis is very poor. Critical care time 35 minutes Plan dated 09/15/2018 Again, we will attempt a daily eruption of sedation with a pressure support of 5 and CPAP of 5. We have put a consultation in the surgery for possible tracheostomy and PEG tube placement to be done on . His chest x-ray shows evidence of bibasal pneumonia, left greater than right. Microbiology is negative. White count 10.5, hemoglobin 13.8, hematocrit 43 and platelet count 132,000. Sodium and potassium and chloride are all normal. CO2 is 32. Anion gap is normal. BUN is 37 with a creatinine 0.60. The patient's medications are reviewed. He remains on DuoNeb nebs every 4 hours around the clock, Rocephin, azithromycin, Pulmicort updrafts mixed with formoterol, and Solu- Medrol. His overall prognosis is poor. The patient has not really taken very good care of himself. We will continue supportive care. Possible tracheostomy and PEG tube placement on . Critical care time 36 minutes Plan dated 09/16/2018 Today, we will do a daily interruption of sedation as we always do in these intubated patient's and assess the patient for a spontaneous breathing trial. Having said that, the patient has not done well previously on his spontaneous breathing trials. Nonetheless, we'll try again today. He is scheduled for tracheostomy and PEG tube tomorrow with one of the surgeons. I think that's appropriate. His labs and x-rays are reviewed. His chest x-ray continues to show a infiltrate/atelectasis and small effusion at the left lung base. Microbiology is as far negative. His medications are reviewed and are appropriate. Prognosis is guarded. We'll continue support with all the current treatments. Critical care time 33 minutes Plan dated 09/17/2018 The patient will likely have a tracheostomy and PEG tube placed today. As needed as he has failed his previous spontaneous breathing trials. He has a number different medical problems as delineated above. Arterial blood gases are reasonable. Tube feeds are on hold in anticipation of the procedure today. We will likely have to select specialty evaluate the patient for possible placement. His overall prognosis is poor. We will continue to follow. Medications labs are reviewed. Remains on azithromycin and ceftriaxone for his antibiotics. His microbiologic studies are negative. Bronchial washes are negative. Critical care time 34 minutes Time with Patient: Greater than 30
--- NOTE | 2018-09-17 08:11 | PN ---
PROGRESS NOTE Mr. Dougherty is a 68-year-old male who presented with respiratory failure with exacerbation of COPD in a patient with severe chronic obstructive lung disease. He has remained intubated. The plan is to have tracheostomy and PEG tube placement today. He has a known history of ischemic cardiomyopathy and a history of percutaneous revascularization as well as a history of peripheral vascular disease. He had no episode of significant hypotension. He has no malignant arrhythmia. He continues to be at this time on aspirin once a day, Lipitor 40 mg daily, furosemide 20 mg IV q.12 hours, metoprolol tartrate 25 mg twice a day and lisinopril 2.5 mg twice a day. PHYSICAL EXAMINATION: Blood pressure 122/50 with the heart rate in the 60s. LUNGS: With few rhonchi. No wheezes. HEART: Regular rate and rhythm. S1, S2. No S3, no rub with a systolic murmur. ABDOMEN: Soft. Positive bowel sounds. No organomegaly. EXTREMITIES: No edema. LAB DATA: Lab data revealed BUN and creatinine 37 and 0.57, potassium 4.1. Hemoglobin of 13.3. IMPRESSION: 1. Respiratory failure with severe chronic obstructive lung disease. 2. History of ischemic cardiomyopathy. No overt signs of heart failure at this time. 3. Prior history of percutaneous revascularization. 4. History of peripheral vascular disease. 5. History of hypertension. 6. Hyperlipidemia. RECOMMENDATION: We will proceed with a tracheostomy and PEG tube placement today. Continue rest of his medical regimen and depending on his progress, further recommendation will be made. MMODL / STEWN: [id number] /
[2018-09-17] MEDS ORDERED: ePHEDrine SULFATE/0.9% NACL/PF 50 MG/5 ML SYRINGE IV ONE (08:52)
[2018-09-17] MEDS ORDERED: VECURONIUM 10 MG VIAL IV ONE (08:52)
[2018-09-17] MEDS ORDERED: LACTATED RINGERS 1,000 ML IV ONE ×3 (08:52→09:43)
[2018-09-17] MEDS ORDERED: fentaNYL (PF) 50 MCG/ML 2 ML AMP ONE (08:52)
[2018-09-17] MEDS ORDERED: MIDAZOLAM 2 MG/2 ML VIAL ONE (08:52)
[2018-09-17] MEDS: FORMOTEROL FUMARATE 20 MCG/2 ML NEBU INHALATION SCH ×2 (09:02→19:26)
[2018-09-17] MEDS: BUDESONIDE 1 MG/2 ML NEBU INHALATION SCH ×2 (09:02→19:26)
[2018-09-17] MEDS: ENOXAPARIN 40 MG/0.4 ML SYRINGE SQ SCH (10:37)
[2018-09-17] MEDS: FAMOTIDINE 20 MG/2 ML VIAL IV SCH ×2 (10:42→21:39)
[2018-09-17] MEDS: LISINOPRIL 2.5 MG TAB PO SCH ×2 (10:42→21:59)
[2018-09-17] MEDS: FUROSEMIDE 10 MG/ML 2 ML VIAL IV SCH ×2 (10:42→21:39)
[2018-09-17] MEDS: ASPIRIN 81 MG PO SCH (10:43)
[2018-09-17 11:14] LABS: ABG HCO3 34 mmol/L (21-25); ABG Oxygen Saturation 87.3 % (94-97); ABG PCO2 52 mmHg (35-45); ABG PH 7.42 (7.35-7.45); ABG TCO2 35 mmol/L (19-24)
[2018-09-17 11:17] LABS: ABG PO2 57 mmHg (83-108)
--- NOTE | 2018-09-17 11:59 | XR ---
EXAMINATION TYPE: XR chest 1V DATE OF EXAM: 09/17/2018 CLINICAL HISTORY: Tracheostomy tube placement . TECHNIQUE: 2 AP portable frontal views of the chest are obtained. COMPARISON: Chest x-ray from earlier today. FINDINGS: Interval removal of endotracheal and orogastric tubes. There is new tracheostomy tube. Exte nsive new subcutaneous emphysema overlying thorax extending into right neck is present. No sizable pn eumothorax. There is new pneumomediastinum also present. Air extends inferiorly surrounding the peric ardium. Cardiac blood size is stable and mildly enlarged with atherosclerotic thoracic aorta. There i s chronic parenchymal change without pneumothorax bilaterally. There is persistent left basilar opaci ty. Osseous structures are intact. IMPRESSION: Interval removal of endotracheal tube. New tracheostomy. New significant pneumomediastinu m and overlying subcutaneous emphysema. Cannot exclude tracheal perforation as possible etiology. Results called to surgical ICU at time of dictation but was hung up on by patient's nurse. A [place] level critical message alert has been initiated for [facility] Card via the [employer] Critical Results System on 09/17/2018 11:56 AM. This message alert has been sent to [facility] via the preferences provided by the clinician for the receipt of Radiology Critical Findings. Message ID [id number].
[2018-09-17 12:31] LABS: Glucose,Whole Blood 134 mg/dL (75-99)
[2018-09-17] MEDS: CHLORHEXIDINE GLUCONATE 15 ML CUP MUCOUS MEM SCH ×2 (12:40→21:28)
[2018-09-17] MEDS ORDERED: CISATRACURIUM 2 MG/ML 5 ML VIAL IV ONE (13:32)
--- NOTE | 2018-09-17 13:39 | XR ---
EXAMINATION TYPE: XR chest 1V portable DATE OF EXAM: 09/17/2018 CLINICAL HISTORY: New tracheostomy tube placement. TECHNIQUE: 2 AP portable semiupright views of the chest are obtained. COMPARISON: Chest x-ray from earlier today FINDINGS: New tracheostomy tube is satisfactory in position. Extensive overlying subcutaneous emphys ghassan and pneumomediastinum remains present. There is chronic parenchymal change without pneumothorax s een bilaterally. There is persistent left basilar opacity. Cardiac silhouette size is stable and mild ly enlarged with atherosclerotic thoracic aorta. Osseous structures are intact. IMPRESSION: Overall stable findings, extensive pneumomediastinum and overlying subcutaneous emphyse ma. Cardiomegaly with left basilar atelectasis and/or infiltrate.
[2018-09-17] MEDS: METOPROLOL TARTRATE 25 MG TAB PO SCH ×2 (14:30→21:59)
[2018-09-17] MEDS: CISATRACURIUM 200 MG in SODIUM CHLORIDE 0.9% 180 ML IV SCH (14:37)
--- NOTE | 2018-09-17 14:57 | P.PCN ---
Date of Procedure: 09/17/18 Preoperative Diagnosis: Respiratory failure and inability to wean from vent Postoperative Diagnosis: Same Procedure(s) Performed: Tracheostomy with bronchoscopy Anesthesia: ELIJAH Surgeon: Percy Baptiste Estimated Blood Loss (ml): 35 Pathology: none sent Condition: stable Disposition: ICU Indications for Procedure: The patient was readmitted with respiratory failure and was intubated. He was requiring prolonged intubation and unable to wean. Operative Findings: At the time of tracheostomy the trachea appeared to be a bit small for his size and there was some difficulty inserting the initial tracheostomy tube. We felt that this resulted in a posterior membranous tracheal tear. This was visualized bronchoscopically as well. Description of Procedure: With the patient in supine position, under benefit of IV sedation already intubated, we prepped and draped in standard fashion. We made a small transverse incision 2 fingerbreadths above the sternal notch. We incised suprafascial fascias transversely and split strap muscles in midline. We exposed the trachea and placed the first tracheal ring on traction with a tracheal hook. We incised the second through fourth tracheal rings longitudinally. We then attempted to place a #8 Bivona foam cuff tube. We experienced difficulties with this and it was clear that it was not in proper position. We requested a Shiley #8 distal XLT tube. While awaiting this we continued to ventilate the patient. We placed a bronchoscope down through the endotracheal tube and visualized a posterior tear in the membranous trachea. We then placed the XLT tube over the bronchoscope and through the tracheostomy intubated the trachea with the bronchoscope. We slid the XLT tube over this and positioned it properly. We are easily able to ventilate with this with no obvious air leak. Oxygenation was excellent and tidal volumes and pressures were similar to preop. There was no significant bleeding. We then secured the flanges of the tube to the nylon sutures used to approximate the corners of our incision. Sterile dressings were applied. The patient tolerated our procedure well and was at no time significantly hypoxic. We then proceeded with the PEG tube placement without difficulty. We discussed this procedure and issues with the patient's . We discussed it with critical care and the ICU staff with instructions in regards to safety mechanisms in regards to treatment of this tube.
--- NOTE | 2018-09-17 15:01 | P.PCN ---
Date of Procedure: 09/17/18 Preoperative Diagnosis: Inability to swallow secondary to vent dependency Postoperative Diagnosis: Same Procedure(s) Performed: Insertion of percutaneous endoscopic gastrostomy tube. Anesthesia: GETA Surgeon: Percy Baptiste Estimated Blood Loss (ml): 5 Pathology: none sent Condition: stable Disposition: ICU Indications for Procedure: The patient requires nutrition and is vent dependent. Operative Findings: There were no significant abnormalities seen. Description of Procedure: With the patient spine position, under benefit of IV sedation, the bronchoscope was passed under direct visualization. We visualized an area of the anterior abdominal wall which corresponded to the anterior wall of the stomach. The abdominal wall had been previously prepped. We made a quarter inch incision in this location. Through this incision we placed a needle and trocar. The inner trocar was removed and a guidewire placed through the needle cannula. We grasped the guidewire with a snare th we then roni the PEG tube into position with traction. We followed it down with the scope until the mushroom tip abutted the gastric mucosa. We reviewed the guidewire. We withdrew all possible air from the stomach and the scope was removed. Appropriate adapters were placed on the PEG tube and sterile dressings were applied. The patient tolerated the procedure well and was taken to intensive care in stable condition. rough the scope and brought it out through the mouth. We threaded the PEG tube over this and passed it manually until the plastic tip exited the anterior abdominal wall.
[2018-09-17] MEDS: cefTRIAXone 2,000 MG in SODIUM CHLORIDE 0.9% 100 ML IVPB SCH (15:14)
[2018-09-17] MEDS: AZITHROMYCIN 500 MG in SODIUM CHLORIDE 0.9% 250 ML IVPB SCH (16:48)
[2018-09-17] MEDS: ARTIFICIAL TEARS-HYPROMELLOSE DROPS 15 ML BTL BOTH EYES SCH ×3 (17:03→23:53)
--- NOTE | 2018-09-17 18:27 | P.PN ---
Subjective On-call hospitalist covering Dr. Negron starting 09/16/2018 This is a 67 years old male with past medical history of coronary artery disease , congestive heart failure, COPD, DVT, GERD, hyperlipidemia, hypertension, myocardial infarction, who presents because of severe dyspnea and hypoxia needed intubation. Patient remains intubated in the ICU and cannot provide to his history which was obtained from the staff and medical records. Aspirate was patient also have ischemic cardiomyopathy with ejection fraction of 20-25%. Critical care team are following the patient. Patient is planned for EGD and PEG tube tomorrow already. Patient denied the fluids and propofol. Labs showing mild leukocytosis of 11.1 K, mild low platelets at 128. Sodium 141, potassium 4.2, creatinine 0.5, 09/17/18 pt remains as yesterday when i first saw him , he is intubated and failed breathing trials. pt is for tracheostomy and PEG tube placement today. Review of systems: N/a Medication:- albuterol 0.5 mg, ipratropium 3 mg, aspirin 81 mg Lipitor 40 mg, Zithromax 500 mg, Pulmicort 1 mg, ceftriaxone 2000 mg, chlorhexidine 15 mL, Lovenox 40 mg, Pepcid 20 mg, Lasix 20 mg, NovoLog sliding scale, Zestril 2.5 mg , Solu-Medrol 60 mg, Lopressor 25 mg, nicotine 21 mg, propofol 1000 mg, Requip 2 mg, Objective - Vital Signs Vital signs: Vital Signs Temp 98.9 F 09/17/18 08:00 Pulse 73 09/17/18 11:00 Resp 22 09/17/18 11:00 BP 138/67 09/16/18 07:00 Pulse Ox 87 L 09/17/18 11:00 Intake & Output 09/16/18 09/17/18 09/17/18 18:59 06:59 18:59 Intake Total 2311.253 5287.032 7069.469 Output Total 1385 1260 90 Balance 926.253 537.220 6904.469 Weight 86.7 kg 89 kg Intake: IV 3199 401 6589 Azithromycin 500 mg In 250 Sodium Chloride 0.9% 250 ml @ 250 mls/hr IVPB Q24H [facility] Rx#:[id number] Pressure bag of 0.9 NaCl- 36 36 6 Sodium Chloride 0.9% 1, 800 900 150 000 ml @ 75 mls/hr IV . [id number] [facility] Rx#:[id number] cefTRIAXone 2,000 mg In 100 Sodium Chloride 0.9% 100 ml @ 100 mls/hr IVPB Q24H [facility] Rx#:[id number] Intake, IV Titration 390.253 357.623 118.469 Amount Propofol 1,000 mg In 390.253 357.623 118.469 Empty Bag 1 bag @ Titrate IV .Q0M [facility] Rx#: [id number] Tube Feeding 675 360 Other 60 60 Output: Urine 1385 1260 80 Estimated Blood Loss 10 Other: Voiding Method Indwelling Catheter Indwelling Catheter Indwelling Catheter # Bowel Movements 1 ABP, PAP, CO, CI - Last Documented Arterial Blood Pressure 131/60 - Exam GENERAL: Patient is intubated HEENT: Pupils are round and equally reacting to light. EOMI. No scleral icterus. No conjunctival pallor. Normocephalic, atraumatic. No pharyngeal erythema. No thyromegaly. CARDIOVASCULAR: S1 and S2 present. No murmurs, rubs, or gallops. PULMONARY: Chest is clear to auscultation, no wheezing or crackles. ABDOMEN: Soft, nontender, nondistended, normoactive bowel sounds. No palpable organomegaly. MUSCULOSKELETAL: No joint swelling or deformity. EXTREMITIES: No cyanosis, clubbing, or pedal edema. NEUROLOGICAL: Gross neurological examination did not reveal any focal deficits. SKIN: No rashes. - Labs CBC & Chem 7: 09/17/18 03:45 09/17/18 03:45 Labs: Abnormal Lab Results - Last 24 Hours (Table) 09/16/18 09/16/18 09/16/18 Range/Units 12:07 18:07 23:37 WBC (3.8-10.6) k/uL RBC (4.30-5.90) m/uL MCV (80.0-100.0) fL Plt Count (150-450) k/uL Neutrophils # (1.3-7.7) k/uL Lymphocytes # (1.0-4.8) k/uL ABG pH (7.35-7.45) ABG pCO2 (35-45) mmHg ABG pO2 (83-108) mmHg ABG HCO3 (21-25) mmol/L ABG Total CO2 (19-24) mmol/L ABG O2 Saturation (94-97) % Carbon Dioxide (22-30) mmol/L BUN (9-20) mg/dL Creatinine (0.66-1.25) mg/dL Glucose (74-99) mg/dL POC Glucose (mg/dL) 164 H 155 H 143 H (75-99) mg/dL Magnesium (1.6-2.3) mg/dL 09/17/18 09/17/18 09/17/18 Range/Units 03:45 03:45 03:45 WBC 11.3 H (3.8-10.6) k/uL RBC 4.07 L (4.30-5.90) m/uL MCV 102.9 H (80.0-100.0) fL Plt Count 131 L (150-450) k/uL Neutrophils # 10.2 H (1.3-7.7) k/uL Lymphocytes # 0.5 L (1.0-4.8) k/uL ABG pH (7.35-7.45) ABG pCO2 (35-45) mmHg ABG pO2 (83-108) mmHg ABG HCO3 (21-25) mmol/L ABG Total CO2 (19-24) mmol/L ABG O2 Saturation (94-97) % Carbon Dioxide 31 H (22-30) mmol/L BUN 37 H (9-20) mg/dL Creatinine 0.57 L (0.66-1.25) mg/dL Glucose 144 H (74-99) mg/dL POC Glucose (mg/dL) (75-99) mg/dL Magnesium 2.4 H (1.6-2.3) mg/dL 09/17/18 09/17/18 09/17/18 Range/Units 05:16 05:29 11:11 WBC (3.8-10.6) k/uL RBC (4.30-5.90) m/uL MCV (80.0-100.0) fL Plt Count (150-450) k/uL Neutrophils # (1.3-7.7) k/uL Lymphocytes # (1.0-4.8) k/uL ABG pH 7.46 H (7.35-7.45) ABG pCO2 47 H 52 H (35-45) mmHg ABG pO2 70 L 57 L* (83-108) mmHg ABG HCO3 34 H 34 H (21-25) mmol/L ABG Total CO2 35 H 35 H (19-24) mmol/L ABG O2 Saturation 87.3 L (94-97) % Carbon Dioxide (22-30) mmol/L BUN (9-20) mg/dL Creatinine (0.66-1.25) mg/dL Glucose (74-99) mg/dL POC Glucose (mg/dL) 145 H (75-99) mg/dL Magnesium (1.6-2.3) mg/dL Assessment and Plan Assessment: Acute hypoxemic, hypercapnic respiratory failure secondary to severe COPD exacerbation and acute on chronic systolic CHF exacerbation. Patient is status post intubation on mechanical ventilation End stage COPD, as per the pulmonary team Ischemic cardiomyopathy with ejection fraction of 20-25% History of nicotine dependence History of coronary artery disease, status post stenting History of nonsustained ventricular tachycardia History of DVT Peripheral vascular disease Essential hypertension Hyperlipidemia Possible left lower lobe pneumonia Plan: This is a 67 years old male who presents with severe COPD requiring intubation, with possible pneumonia and CHF. Critical team/pulmonary team are following the patient. Patient is currently intubated in the ICU. Patient will benefit from Peg//tracheostomy.Labs and medication were resumed. Continue same treatment. Continue with symptomatic treatment. Resume home medication. Monitor lytes and vitals. DVT and GI prophylaxis. Further recommendationsof the clinical course of the patient DVT prophylaxis: Subcutaneous Lovenox GI Prophylaxis: Pepcid Prognosis is guarded and poor
[2018-09-17 18:43] LABS: Glucose,Whole Blood 143 mg/dL (75-99)
[2018-09-17] MEDS: ATORVASTATIN 20 MG TAB PO SCH (21:28)
[2018-09-17 23:58] LABS: Glucose,Whole Blood 134 mg/dL (75-99)
[2018-09-18] MEDS: methylPREDNISolone SOD SUCCI 125 MG/2 ML VIAL IV SCH ×5 (00:03→23:21)
[2018-09-18] MEDS: PROPOFOL 1,000 MG in EMPTY BAG 1 BAG IV SCH ×8 (00:55→21:00)
[2018-09-18] MEDS: IPRATROPIUM-ALBUTEROL 3 ML NEB INHALATION SCH ×6 (03:14→23:27)
[2018-09-18] MEDS: ARTIFICIAL TEARS-HYPROMELLOSE DROPS 15 ML BTL BOTH EYES SCH ×6 (03:25→23:33)
[2018-09-18 05:19] LABS: Basophils % (A) 0 %; Eosinophils # (A) 0.1 k/uL (0-0.7); Eosinophils % (A) 0 %; HCT 44.4 % (39.0-53.0); Lymphocytes # (A) 0.4 k/uL (1.0-4.8); Lymphocytes % (A) 3 %; MCH 32.3 pg (25.0-35.0); MCHC 31.5 g/dL (31.0-37.0); MCV 102.5 fL (80.0-100.0); Macrocytosis Slight; Monocytes # (A) 0.7 k/uL (0-1.0); Monocytes % (A) 5 %; Neutrophils # (A) 12.9 k/uL (1.3-7.7); Neutrophils % (A) 91 %; Platelet Count 136 k/uL (150-450); RBC 4.34 m/uL (4.30-5.90); WBC 14.2 k/uL (3.8-10.6)
[2018-09-18 05:28] LABS: Anion Gap 5 mmol/L; Blood Urea Nitrogen 42 mg/dL (9-20); Calcium 8.6 mg/dL (8.4-10.2); Carbon Dioxide 31 mmol/L (22-30); Chloride 104 mmol/L (98-107); Glucose 146 mg/dL (74-99); Magnesium 2.4 mg/dL (1.6-2.3); Phosphorus 4.5 mg/dL (2.5-4.5); Sodium 140 mmol/L (137-145)
[2018-09-18 05:34] LABS: ABG Base Excess 10.7 mmol/L; ABG HCO3 35 mmol/L (21-25); ABG Oxygen Saturation 93.8 % (94-97); ABG PCO2 51 mmHg (35-45); ABG PH 7.45 (7.35-7.45); ABG PO2 68 mmHg (83-108); ABG TCO2 36 mmol/L (19-24)
[2018-09-18 06:08] LABS: Glucose,Whole Blood 132 mg/dL (75-99)
[2018-09-18] MEDS: INSULIN ASPART 100 UNIT/ML 1 ML 10 ML VIAL SQ SCH ×4 (06:23→17:38)
--- NOTE | 2018-09-18 08:14 | PN ---
PROGRESS NOTE Mr. Dougherty is a 68-year-old male with known history of severe chronic obstructive lung disease, history of severe cardiomyopathy, history of peripheral vascular disease and coronary artery disease, who presented with respiratory failure, underwent a PEG and tracheostomy placement yesterday. He remains intubated, sedated, hemodynamically he is stable. He continued in sinus mechanism. There is no evidence of tachycardia or bradycardia. He continues to be at this time on aspirin 81 mg daily, Lipitor 40 mg daily, furosemide 20 mg IV q.12 hours and metoprolol tartrate 25 mg twice a day. PHYSICAL EXAMINATION: Blood pressure 142/60 with the heart rate in the 80s. LUNGS: A few rhonchi anteriorly, no wheezes. HEART: Regular rate and rhythm. S1, S2. No S3 with systolic murmur. No rub. ABDOMEN: Soft. Positive bowel sounds. No organomegaly. PEG tube in place. EXTREMITIES: No edema. LAB DATA: Lab data revealed BUN and creatinine 42 and 0.59. Potassium 4.0. White blood cell of 14.2. IMPRESSION: 1. Respiratory failure with severe chronic obstructive lung disease and exacerbation of chronic obstructive pulmonary disease. 2. Severe cardiomyopathy with no overt signs of congestive heart failure at this time. 3. History of coronary artery disease. 4. History of peripheral vascular disease. RECOMMENDATION: We will continue present therapy. At this time, he has no signs of active heart failure. The patient will require long process in weaning and extubating. MMODL / IJN: [id number] /
--- NOTE | 2018-09-18 08:20 | XR ---
EXAMINATION TYPE: XR chest 1V portable DATE OF EXAM: 09/18/2018 COMPARISON: 09/17/2018 INDICATION: Subcutaneous air, pneumomediastinum TECHNIQUE: Single frontal view of the chest is obtained. Images in the semiupright position. FINDINGS: The heart size is mildly prominent. The pulmonary vasculature is normal. Suspicious infiltrates are not evident. There is extensive subcutaneous air present. Tracheostomy tube is in the midline. Some air is adjacen t to the trachea compatible with pneumomediastinum. Thorax is not identified IMPRESSION: 1. Extensive subcutaneous emphysema. 2. Stable appearing pneumomediastinum. 3. Exam appears stable from comparison.
[2018-09-18] MEDS: FORMOTEROL FUMARATE 20 MCG/2 ML NEBU INHALATION SCH ×2 (08:34→20:02)
[2018-09-18] MEDS: BUDESONIDE 1 MG/2 ML NEBU INHALATION SCH ×2 (08:34→20:02)
[2018-09-18] MEDS: CISATRACURIUM 200 MG in SODIUM CHLORIDE 0.9% 180 ML IV SCH (09:14)
[2018-09-18] MEDS: SODIUM CHLORIDE 0.9% 1,000 ML IV SCH (09:14)
--- NOTE | 2018-09-18 09:19 | P.PN ---
Subjective Progress Note Date: 09/18/18 Principal diagnosis: Respiratory failure The patient is status post trach. He has a tear in the posterior membranous portion of the trachea. This has not affected his ventilation. Objective - Vital Signs Vital signs: Vital Signs Temp 98.9 F 09/18/18 08:00 Pulse 78 09/18/18 08:00 Resp 22 09/18/18 08:00 BP 138/67 09/16/18 07:00 Pulse Ox 92 L 09/18/18 08:00 Intake & Output 09/17/18 09/18/18 09/18/18 18:59 06:59 18:59 Intake Total 2994.386 1342.897 454.826 Output Total 1555 1175 55 Balance 1439.386 167.897 399.826 Weight 87.6 kg Intake: IV 2689 858 156 Azithromycin 500 mg In 250 Sodium Chloride 0.9% 250 ml @ 250 mls/hr IVPB Q24H [facility] Rx#:[id number] Pressure bag of 0.9 NaCl- 39 33 6 Sodium Chloride 0.9% 1, 675 825 150 000 ml @ 75 mls/hr IV . [id number] [facility] Rx#:[id number] cefTRIAXone 2,000 mg In 325 Sodium Chloride 0.9% 100 ml @ 100 mls/hr IVPB Q24H [facility] Rx#:[id number] Intake, IV Titration 305.386 484.897 298.826 Amount Cisatracurium 200 mg In 198.826 Sodium Chloride 0.9% 180 ml @ 2 MCG/KG/MIN 10.68 mls/hr IV .[id number] [facility] Rx #:[id number] Propofol 1,000 mg In 305.386 484.897 100 Empty Bag 1 bag @ Titrate IV .Q0M [facility] Rx#: [id number] Output: Urine 1545 1175 55 Estimated Blood Loss 10 Other: Voiding Method Indwelling Catheter Indwelling Catheter ABP, PAP, CO, CI - Last Documented Arterial Blood Pressure 134/57 - Exam The patient has developed somewhat increased amount of subcu emphysema. This is fairly diffuse in the neck and chest and face. - Labs CBC & Chem 7: 09/18/18 04:55 09/18/18 04:55 Labs: Abnormal Lab Results - Last 24 Hours (Table) 09/17/18 09/17/1818 Range/Units 11:11 12:30 18:42 WBC (3.8-10.6) k/uL MCV (80.0-100.0) fL Plt Count (150-450) k/uL Neutrophils # (1.3-7.7) k/uL Lymphocytes # (1.0-4.8) k/uL ABG pCO2 52 H (35-45) mmHg ABG pO2 57 L* (83-108) mmHg ABG HCO3 34 H (21-25) mmol/L ABG Total CO2 35 H (19-24) mmol/L ABG O2 Saturation 87.3 L (94-97) % Carbon Dioxide (22-30) mmol/L BUN (9-20) mg/dL Creatinine (0.66-1.25) mg/dL Glucose (74-99) mg/dL POC Glucose (mg/dL) 134 H 143 H (75-99) mg/dL Magnesium (1.6-2.3) mg/dL 09/17/18 09/18/18 09/18/18 Range/Units 23:56 04:55 04:55 WBC 14.2 H (3.8-10.6) k/uL MCV 102.5 H (80.0-100.0) fL Plt Count 136 L (150-450) k/uL Neutrophils # 12.9 H (1.3-7.7) k/uL Lymphocytes # 0.4 L (1.0-4.8) k/uL ABG pCO2 (35-45) mmHg ABG pO2 (83-108) mmHg ABG HCO3 (21-25) mmol/L ABG Total CO2 (19-24) mmol/L ABG O2 Saturation (94-97) % Carbon Dioxide 31 H (22-30) mmol/L BUN 42 H (9-20) mg/dL Creatinine 0.59 L (0.66-1.25) mg/dL Glucose 146 H (74-99) mg/dL POC Glucose (mg/dL) 134 H (75-99) mg/dL Magnesium 2.4 H (1.6-2.3) mg/dL 09/18/18 09/18/18 Range/Units 05:30 06:07 WBC (3.8-10.6) k/uL MCV (80.0-100.0) fL Plt Count (150-450) k/uL Neutrophils # (1.3-7.7) k/uL Lymphocytes # (1.0-4.8) k/uL ABG pCO2 51 H (35-45) mmHg ABG pO2 68 L (83-108) mmHg ABG HCO3 35 H (21-25) mmol/L ABG Total CO2 36 H (19-24) mmol/L ABG O2 Saturation 93.8 L (94-97) % Carbon Dioxide (22-30) mmol/L BUN (9-20) mg/dL Creatinine (0.66-1.25) mg/dL Glucose (74-99) mg/dL POC Glucose (mg/dL) 132 H (75-99) mg/dL Magnesium (1.6-2.3) mg/dL Assessment and Plan Plan: The patient does have some subcu emphysema from the trach which is partially contributed to by the membranous tracheal tear. We did a bronchoscope through the trach which showed it to be in good position with the lumen in a healthy portion of lower trachea but above the dino. We injected some protogen gel in the trachea above this to hopefully seal this area. We also resutured the trach tube flanges to the lower flap rather than approximating the incisions in hopes of evacuating any mild air leak around the balloon rather than forcing it into his tissues. Prognosis guarded in regards to his other medical issues.
--- NOTE | 2018-09-18 09:23 | P.PCN ---
Date of Procedure: 09/18/18 Preoperative Diagnosis: Subcutaneous emphysema post tracheostomy Postoperative Diagnosis: Same Procedure(s) Performed: Bronchoscopy and adjustment of trach tube Anesthesia: none Surgeon: Percy Baptiste Pathology: none sent Condition: stable Disposition: no change Indications for Procedure: The patient has increased his subcu emphysema post trach. In order to facilitate the resolution and 2 be certain that the trach is in good position we underwent a bronchoscopy through the trach tube and realigned the sutures. Operative Findings: On bronchoscopy we find the distal trachea to be intact with the lumen of the tracheostomy tube in good position several centimeters above the dino. Description of Procedure: With the patient spine position, already sedated and paralyzed, we passed the bronchoscope under sterile precautions directly through the trach tube with findings as above. The bronchoscope was then removed. We then removed the previous sutures from the skin which were tightly sealing the corners of the tracheostomy incision. We then placed new 3-0 nylon sutures on the bottom flap of the trach incision and used these to secure the flanges of the trach tube. Sterile dressings were applied. The patient tolerated the procedure well.
--- NOTE | 2018-09-18 09:51 | P.PN ---
Subjective Progress Note Date: 09/18/18 Principal diagnosis: Respiratory failure Progress note dated 09/14/2018 67-year-old male with history of acute on chronic hypoxemic and hypercapnic respiratory failure requiring intubation on September 09 for respiratory failure. The patient also has a history of chronic systolic congestive heart failure. He has a history of chronic tobacco dependence, noncompliance with medications, ischemic cardiomyopathy, with an ejection fraction of 20-25%, a previous history of ventilator dependent respiratory failure, CAD with previous stent placements in the right coronary artery and circumflex coronary artery, nonsustained ventricular tachycardia, DVT, PVOD, status post fem-fem bypass, hypertension, hyperlipidemia, left lower lobe pneumonia, status post bronchoscopy and lavage on 09/13/2018. Today, we'll do a daily interruption of sedation. We will place him on pressure support of 12 and CPAP of 5. Volumes and respiratory rates are good. He may not be ready for extubation. Prior to this, he was on the volume assist control mode rate of 22, tidal volume 500, FiO2 50% and PEEP of 5. Arterial blood gases show a PaO2 of 62, a PaCO2 of 50, and if 7.44. He is on a saline IV at 75 mL now, propofol 65 mics per kilogram per minute, and vital high protein at 35 with a goal of 45 mL an hour. Chest x- ray shows a left lower lobe infiltrate with atelectasis. Current microbiologic studies are negative or pending. He is currently on azithromycin and ceftriaxone. His overall prognosis remains poor given his multitude of medical problems as detailed above. Progress note dated 09/15/2018 67-year-old male with a history of acute on chronic hypoxemic and hypercapnic respiratory failure, requiring intubation and mechanical ventilation on September 09. The patient also has a history of chronic systolic heart failure, chronic tobacco dependence, noncompliance with medications, ischemic cardiomyopathy with an ejection fraction of 20-25%, a previous history of ventilator dependent respiratory failure, coronary artery disease with previous stent placements in the right coronary artery and circumflex coronary artery, nonsustained ventricular tachycardia, DVT, PVOD, status post fem-fem bypass, hypertension, hyperlipidemia, left lower lobe pneumonia, and status post bronchoscopy with BAL on 09/13/2018. Yesterday, we attempted a daily interruption of sedation but he did very poorly. We place him on pressure support of 12 and CPAP of 5. After a few minutes. Place him back on the volume assist control mode. Currently, he is on volume assist control, rate of 22, tidal volume 500, FiO2 50 %, and PEEP of 5. Arterial blood gases show a PaO2 of 66 a PaCO2 of 47 and a pH 7.46. His chest x-ray showed bibasilar infiltrates, left greater than right. He is on propofol at 35 mcg/kg/m, saline IV at 75 mL an hour and vital high protein at 45 with a goal of 45 mL an hour. A consultation has been placed with surgery for possible tracheostomy and PEG tube placement on . Progress note dated 09/16/2018 67-year-old male with a history of acute on chronic hypoxemic and hypercapnic respiratory failure, which required intubation and mechanical ventilation on September 09. The patient also has a history of chronic systolic heart failure, chronic tobacco dependence, noncompliance with medications, ischemic cardiomyopathy with an ejection fraction of 20-25%, a previous history of ventilator dependent respiratory failure, CAD with previous stenting, nonsustained ventricular tachycardia, DVT, PVOD, status post fem-fem bypass, hypertension, hyperlipidemia and left lower lobe pneumonia. The patient is also status post bronchoscopy with BAL on 09/13/2018. The patient's vent settings include the volume assist control mode with a rate of 22, tidal volume 500, FiO2 50%, and PEEP of 5. Arterial blood gases show a PaO2 of 73, a PaCO2 49 and a pH is 7.44. The patient spent 1-1/2 hours on pressure support 8 CPAP of 5 yesterday September 15. His IVs included saline at 75 mL an hour, propofol at 65 mics per kilogram per minute, and vital high protein at 45 with a goal of 45 mL an hour. The patient is scheduled for a tracheostomy and PEG tube tomorrow and I think that should occur. I don't believe he is going to wean anytime soon., Thus far, all microbiologic studies are negative or pending. Laboratory data includes a sodium of 141, potassium 4.2, chlorides 106, and a CO2 of 32. His anion gap is normal, with a BUN of 39 and creatinine of 0.54. Chest x-ray continues to show a infiltrate or atelectasis with a small effusion in the left lower lung, and a relatively clear right lung. Progress note dated 09/17/2018 67-year-old male with a history of acute on chronic hypoxemic and hypercapnic respiratory failure requiring intubation and mechanical ventilation on September 09. Unfortunately, despite daily interruption's of sedation and spontaneous breathing trials, the patient has not been able to be extubated. Today, he will have a tracheostomy and PEG tube placement one of the thoracic surgeons. He's currently on the volume assist control mode with a rate of 22, tidal volume 500, FiO2 50%, and a PEEP of 5. Arterial blood gases show a PaO2 of 70, a PaCO2 of 47 and a pH of 7.46. He is getting saline at 75 mL an hour propofol 60 mikes per kilogram per minute and tube feeds are on hold. Chest x-ray continues to show a left lower lobe pneumonia. Microbiologic studies are thus far negative. There was some yeast in his bronchial washings likely a contaminant. He remains on Rocephin and Zithromax as antibiotic coverage. White count 11.3, hemoglobin 13.3, hematocrit 41.9 and platelet count 131,000. Sodium 139, potassium 4.1, chlorides 106, CO2 31, anion gap is normal, BUN 37 and creatinine 0.57. Medications are reviewed. The patient's past medical history is quite extensive and includes among other things, chronic systolic heart failure, chronic tobacco dependence, noncompliance with medications, ischemic cardiomyopathy, ejection fraction 20-25%, a previous history of ventilator dependent respiratory failure, CAD with previous stenting, nonsustained ventricular tachycardia, DVT, PVO D, some/femoral bypass, hypertension, hyperlipidemia, and the pneumonia. Progress note dated 09/18/2018 67-year-old male with history of acute on chronic hypoxemic and hypercapnic respiratory failure requiring intubation and mechanical ventilation on September 09. The patient was not able to be weaned and extubated and underwent a tracheostomy and PEG tube placement done yesterday. Currently, he is on the volume assist control mode with a rate of 22, tidal volume 500, FiO2 90% and PEEP of 8. Arterial blood gases show a PaO2 of 68, a PaCO2 of 51 and a pH of 7.45. The patient's on saline IV at 75 mL an hour, propofol 75 mics per kilogram per minute, and Nimbex at 2 mics per kilogram per minute with a peripheral nerve stimulator. Today, the surgeon who did a tracheostomy was going to live down the tube with a proctoscope to make sure everything is in good order. Unfortunately, the patient is also developed massive subcutaneous emphysema. He also has pneumomediastinum. I do not see a pneumothorax. The patient has a history of chronic systolic heart failure, chronic tobacco dependence, noncompliance with medications, ischemic cardiomyopathy with an ejection fraction of about 20-25%, a previous history of ventilator dependent respiratory failure, CAD with previous stenting, nonsustained ventricular tachycardia, DVT, P VOD, status post fem-fem bypass, hypertension, hyperlipidemia, and left lower lobe pneumonia. The patient underwent bronchoscopy with BAL on September 13. Microbiology is all negative thus far. White count is 14.2, hemoglobin 14 hematocrit 44.4 and platelet count was 136, 000. Sodium potassium and chloride are all normal. CO2 is 31, anion gap is normal, and BUN is 42 with a creatinine of 0.59. Chest x-ray shows extensive subcutaneous emphysema and pneumomediastinum. Objective - Vital Signs Vital signs: Vital Signs Temp 98.9 F 09/18/18 08:00 Pulse 78 09/18/18 08:00 Resp 22 09/18/18 08:00 BP 138/67 09/16/18 07:00 Pulse Ox 92 L 09/18/18 08:00 Intake & Output 09/17/18 09/18/18 09/18/18 18:59 06:59 18:59 Intake Total 2994.386 1342.897 454.826 Output Total 1555 1175 55 Balance 1439.386 167.897 399.826 Weight 87.6 kg Intake: IV 2689 858 156 Azithromycin 500 mg In 250 Sodium Chloride 0.9% 250 ml @ 250 mls/hr IVPB Q24H [facility] Rx#:[id number] Pressure bag of 0.9 NaCl- 39 33 6 Sodium Chloride 0.9% 1, 675 825 150 000 ml @ 75 mls/hr IV . [id number] [facility] Rx#:[id number] cefTRIAXone 2,000 mg In 325 Sodium Chloride 0.9% 100 ml @ 100 mls/hr IVPB Q24H [facility] Rx#:[id number] Intake, IV Titration 305.386 484.897 298.826 Amount Cisatracurium 200 mg In 198.826 Sodium Chloride 0.9% 180 ml @ 2 MCG/KG/MIN 10.68 mls/hr IV .[id number] [facility] Rx #:[id number] Propofol 1,000 mg In 305.386 484.897 100 Empty Bag 1 bag @ Titrate IV .Q0M [facility] Rx#: [id number] Output: Urine 1545 1175 55 Estimated Blood Loss 10 Other: Voiding Method Indwelling Catheter Indwelling Catheter ABP, PAP, CO, CI - Last Documented Arterial Blood Pressure 134/57 - Exam No acute distress, sedated, with a tracheostomy tube and NG tube in place. HEENT examination is grossly unremarkable. Mucous membranes are moist. Neck supple. Full range of motion. No adenopathy thyromegaly or neck vein distention. Cardiovascular examination reveals regular rhythm rate. S1-S2 normal. No S3 or S4. No discernible murmur noted. Heart sounds are distant. Lungs reveal coarse diffuse bilateral inspiratory and expiratory rhonchi and wheezes. No crackles are noted. Breath sounds equal bilaterally. Sounds have really not changed over the course of a couple days on this patient. Severe subcutaneous emphysema is noted over the chest wall shoulders arms and neck and facial areas Abdomen soft and bowel sounds are heard. No masses or tenderness. PEG tube noted. Extremities are intact. No cyanosis clubbing or edema. Skin is without rash or lesion. Neurologic examination is very difficult to assess given the fact that he is on propofol at 60 mcg/kg/m and Nimbex at 2 mics per kilogram per minute. - Labs CBC & Chem 7: 09/18/18 04:55 09/18/18 04:55 Labs: Abnormal Lab Results - Last 24 Hours (Table) 09/17/18 09/17/18 09/17/18 Range/Units 11:11 12:30 18:42 WBC (3.8-10.6) k/uL MCV (80.0-100.0) fL Plt Count (150-450) k/uL Neutrophils # (1.3-7.7) k/uL Lymphocytes # (1.0-4.8) k/uL ABG pCO2 52 H (35-45) mmHg ABG pO2 57 L* (83-108) mmHg ABG HCO3 34 H (21-25) mmol/L ABG Total CO2 35 H (19-24) mmol/L ABG O2 Saturation 87.3 L (94-97) % Carbon Dioxide (22-30) mmol/L BUN (9-20) mg/dL Creatinine (0.66-1.25) mg/dL Glucose (74-99) mg/dL POC Glucose (mg/dL) 134 H 143 H (75-99) mg/dL Magnesium (1.6-2.3) mg/dL 09/17/18 09/18/18 09/18/18 Range/Units 23:56 04:55 04:55 WBC 14.2 H (3.8-10.6) k/uL MCV 102.5 H (80.0-100.0) fL Plt Count 136 L (150-450) k/uL Neutrophils # 12.9 H (1.3-7.7) k/uL Lymphocytes # 0.4 L (1.0-4.8) k/uL ABG pCO2 (35-45) mmHg ABG pO2 (83-108) mmHg ABG HCO3 (21-25) mmol/L ABG Total CO2 (19-24) mmol/L ABG O2 Saturation (94-97) % Carbon Dioxide 31 H (22-30) mmol/L BUN 42 H (9-20) mg/dL Creatinine 0.59 L (0.66-1.25) mg/dL Glucose 146 H (74-99) mg/dL POC Glucose (mg/dL) 134 H (75-99) mg/dL Magnesium 2.4 H (1.6-2.3) mg/dL 09/18/18 09/18/18 Range/Units 05:30 06:07 WBC (3.8-10.6) k/uL MCV (80.0-100.0) fL Plt Count (150-450) k/uL Neutrophils # (1.3-7.7) k/uL Lymphocytes # (1.0-4.8) k/uL ABG pCO2 51 H (35-45) mmHg ABG pO2 68 L (83-108) mmHg ABG HCO3 35 H (21-25) mmol/L ABG Total CO2 36 H (19-24) mmol/L ABG O2 Saturation 93.8 L (94-97) % Carbon Dioxide (22-30) mmol/L BUN (9-20) mg/dL Creatinine (0.66-1.25) mg/dL Glucose (74-99) mg/dL POC Glucose (mg/dL) 132 H (75-99) mg/dL Magnesium (1.6-2.3) mg/dL Assessment and Plan Assessment: Assessment Acute hypoxemic and hypercapnic respiratory failure, secondary to severe COPD exacerbation and chronic systolic CHF exacerbation, requiring intubation and mechanical ventilation on September 09 Status post bronchoscopy for sampling of the lower respiratory tract and removal of airway secretions on September 13. Status post tracheostomy and PEG tube placement on 09/17/2018. Massive subcutaneous emphysema and pneumomediastinum Severe end-stage COPD History of chronic and ongoing tobacco dependence Severe ischemic cardiomyopathy with ejection fraction of 20-25% History of noncompliance with medications and follow-ups Previous history of respiratory failure with ventilator dependence Coronary artery disease, status post stent placements in the right coronary artery and circumflex coronary artery History of nonsustained ventricular tachycardia History of DVT Status post fem-fem bypass for peripheral vascular disease History of essential hypertension History of hyperlipidemia Probable left lower lobe pneumonia Plan: Plan dated 09/14/2018 The patient remains on mechanical ventilator. We switch him from the volume assist control mode to the pressure support mode. He is on PSV 12 and CPAP of 5. He remains on 50%. He remains on tube feeds. Microbiology is currently either negative or pending. White count 10.4, hemoglobin 13.8, hematocrit 44.3 , and platelet count 125,000. Sodium potassium chloride are all normal. CO2 is 33. BUN is 35 with a creatinine 0.56. His medications are reviewed. Remains on albuterol and Atrovent updrafts every 4 hours around the clock as well as Pulmicort 1 mg and formoterol 20 g. Is getting all the other usual medications. His prognosis is poor. He apparently only tolerated pressure support for about 12 minutes. He was placed back on the volume assist control mode and be sedated. A consultation will be given to the surgeon for possible tracheostomy and PEG tube placement. Prognosis is very poor. Critical care time 35 minutes Plan dated 09/15/2018 Again, we will attempt a daily eruption of sedation with a pressure support of 5 and CPAP of 5. We have put a consultation in the surgery for possible tracheostomy and PEG tube placement to be done on . His chest x-ray shows evidence of bibasal pneumonia, left greater than right. Microbiology is negative. White count 10.5, hemoglobin 13.8, hematocrit 43 and platelet count 132,000. Sodium and potassium and chloride are all normal. CO2 is 32. Anion gap is normal. BUN is 37 with a creatinine 0.60. The patient's medications are reviewed. He remains on DuoNeb nebs every 4 hours around the clock, Rocephin, azithromycin, Pulmicort updrafts mixed with formoterol, and Solu- Medrol. His overall prognosis is poor. The patient has not really taken very good care of himself. We will continue supportive care. Possible tracheostomy and PEG tube placement on . Critical care time 36 minutes Plan dated 09/16/2018 Today, we will do a daily interruption of sedation as we always do in these intubated patient's and assess the patient for a spontaneous breathing trial. Having said that, the patient has not done well previously on his spontaneous breathing trials. Nonetheless, we'll try again today. He is scheduled for tracheostomy and PEG tube tomorrow with one of the surgeons. I think that's appropriate. His labs and x-rays are reviewed. His chest x-ray continues to show a infiltrate/atelectasis and small effusion at the left lung base. Microbiology is as far negative. His medications are reviewed and are appropriate. Prognosis is guarded. We'll continue support with all the current treatments. Critical care time 33 minutes Plan dated 09/17/2018 The patient will likely have a tracheostomy and PEG tube placed today. As needed as he has failed his previous spontaneous breathing trials. He has a number different medical problems as delineated above. Arterial blood gases are reasonable. Tube feeds are on hold in anticipation of the procedure today. We will likely have to select specialty evaluate the patient for possible placement. His overall prognosis is poor. We will continue to follow. Medications labs are reviewed. Remains on azithromycin and ceftriaxone for his antibiotics. His microbiologic studies are negative. Bronchial washes are negative. Critical care time 34 minutes Plan dated 09/18/2018 The patient continued with massive subcutaneous emphysema and pneumomediastinum. The surgeon to do a bronchoscopy today to check the placement of the tracheostomy tube. Apparently everything seems to be okay. He remains on propofol and Nimbex for sedation and paralysis. Labs x-rays a medications are all reviewed. Microbiologic studies are negative. He remains on Zithromax and ceftriaxone. Hopefully, he will be stable enough to eventually be transferred to a specialized nursing facility. Prognosis is very guarded and he is very critically ill. Critical care time 37 minutes Time with Patient: Greater than 30
--- NOTE | 2018-09-18 09:56 | P.PN ---
Subjective On-call hospitalist covering Dr. Negron starting 09/16/2018 This is a 67 years old male with past medical history of coronary artery disease , congestive heart failure, COPD, DVT, GERD, hyperlipidemia, hypertension, myocardial infarction, who presents because of severe dyspnea and hypoxia needed intubation. Patient remains intubated in the ICU and cannot provide to his history which was obtained from the staff and medical records. Aspirate was patient also have ischemic cardiomyopathy with ejection fraction of 20-25%. Critical care team are following the patient. Patient is planned for EGD and PEG tube tomorrow already. Patient denied the fluids and propofol. Labs showing mild leukocytosis of 11.1 K, mild low platelets at 128. Sodium 141, potassium 4.2, creatinine 0.5, 09/17/18 pt remains as yesterday when i first saw him , he is intubated and failed breathing trials. pt is for tracheostomy and PEG tube placement today. 09/18/2018 Patient is status post tracheostomy and PEG tube yesterday. However the procedure was complicated by subcutaneous emphysema patient looks perfectly today, however he remains unresponsive. Vitas looks stable and patient is afebrile. Blood pressure 134/57. Labs shows WBC of 14.2 patient remains on Solu-Medrol. Cardiology and skull care input is appreciated. No active cardiac disease is present. Patient with ischemic cardiomyopathy with ejection fraction of 20-25%. Prognosis remains poor. Review of systems: N/a Medication:- albuterol 0.5 mg, ipratropium 3 mg, aspirin 81 mg Lipitor 40 mg, Zithromax 500 mg, Pulmicort 1 mg, ceftriaxone 2000 mg, chlorhexidine 15 mL, Lovenox 40 mg, Pepcid 20 mg, Lasix 20 mg, NovoLog sliding scale, Zestril 2.5 mg , Solu-Medrol 60 mg, Lopressor 25 mg, nicotine 21 mg, propofol 1000 mg, Requip 2 mg, chest x-ray shows extensive subcutaneous in erythema and with the resolution of the pulmonary infiltrate. And her cervical exam remains stable. Objective - Vital Signs Vital signs: Vital Signs Temp 98.9 F 09/18/18 08:00 Pulse 78 09/18/18 08:00 Resp 22 09/18/18 08:00 BP 138/67 09/16/18 07:00 Pulse Ox 92 L 09/18/18 08:00 Intake & Output 09/17/18 09/18/18 09/18/18 18:59 06:59 18:59 Intake Total 2994.386 1342.897 454.826 Output Total 1555 1175 55 Balance 1439.386 167.897 399.826 Weight 87.6 kg Intake: IV 2689 858 156 Azithromycin 500 mg In 250 Sodium Chloride 0.9% 250 ml @ 250 mls/hr IVPB Q24H [facility] Rx#:[id number] Pressure bag of 0.9 NaCl- 39 33 6 Sodium Chloride 0.9% 1, 675 825 150 000 ml @ 75 mls/hr IV . [id number] [facility] Rx#:[id number] cefTRIAXone 2,000 mg In 325 Sodium Chloride 0.9% 100 ml @ 100 mls/hr IVPB Q24H [facility] Rx#:[id number] Intake, IV Titration 305.386 484.897 298.826 Amount Cisatracurium 200 mg In 198.826 Sodium Chloride 0.9% 180 ml @ 2 MCG/KG/MIN 10.68 mls/hr IV .[id number] [facility] Rx #:[id number] Propofol 1,000 mg In 305.386 484.897 100 Empty Bag 1 bag @ Titrate IV .Q0M [facility] Rx#: [id number] Output: Urine 1545 1175 55 Estimated Blood Loss 10 Other: Voiding Method Indwelling Catheter Indwelling Catheter ABP, PAP, CO, CI - Last Documented Arterial Blood Pressure 134/57 - Exam GENERAL: Patient is intubated HEENT: Pupils are round and equally reacting to light. EOMI. No scleral icterus. No conjunctival pallor. Normocephalic, atraumatic. No pharyngeal erythema. No thyromegaly. CARDIOVASCULAR: S1 and S2 present. No murmurs, rubs, or gallops. PULMONARY: Chest is clear to auscultation, no wheezing or crackles. ABDOMEN: Soft, nontender, nondistended, normoactive bowel sounds. No palpable organomegaly. MUSCULOSKELETAL: No joint swelling or deformity. EXTREMITIES: No cyanosis, clubbing, or pedal edema. NEUROLOGICAL: Gross neurological examination did not reveal any focal deficits. SKIN: No rashes. - Labs CBC & Chem 7: 09/18/18 04:55 09/18/18 04:55 Labs: Abnormal Lab Results - Last 24 Hours (Table) 09/17/18 09/17/18 09/17/18 Range/Units 11:11 12:30 18:42 WBC (3.8-10.6) k/uL MCV (80.0-100.0) fL Plt Count (150-450) k/uL Neutrophils # (1.3-7.7) k/uL Lymphocytes # (1.0-4.8) k/uL ABG pCO2 52 H (35-45) mmHg ABG pO2 57 L* (83-108) mmHg ABG HCO3 34 H (21-25) mmol/L ABG Total CO2 35 H (19-24) mmol/L ABG O2 Saturation 87.3 L (94-97) % Carbon Dioxide (22-30) mmol/L BUN (9-20) mg/dL Creatinine (0.66-1.25) mg/dL Glucose (74-99) mg/dL POC Glucose (mg/dL) 134 H 143 H (75-99) mg/dL Magnesium (1.6-2.3) mg/dL 09/17/18 09/18/18 09/18/18 Range/Units 23:56 04:55 04:55 WBC 14.2 H (3.8-10.6) k/uL MCV 102.5 H (80.0-100.0) fL Plt Count 136 L (150-450) k/uL Neutrophils # 12.9 H (1.3-7.7) k/uL Lymphocytes # 0.4 L (1.0-4.8) k/uL ABG pCO2 (35-45) mmHg ABG pO2 (83-108) mmHg ABG HCO3 (21-25) mmol/L ABG Total CO2 (19-24) mmol/L ABG O2 Saturation (94-97) % Carbon Dioxide 31 H (22-30) mmol/L BUN 42 H (9-20) mg/dL Creatinine 0.59 L (0.66-1.25) mg/dL Glucose 146 H (74-99) mg/dL POC Glucose (mg/dL) 134 H (75-99) mg/dL Magnesium 2.4 H (1.6-2.3) mg/dL 09/18/18 09/18/18 Range/Units 05:30 06:07 WBC (3.8-10.6) k/uL MCV (80.0-100.0) fL Plt Count (150-450) k/uL Neutrophils # (1.3-7.7) k/uL Lymphocytes # (1.0-4.8) k/uL ABG pCO2 51 H (35-45) mmHg ABG pO2 68 L (83-108) mmHg ABG HCO3 35 H (21-25) mmol/L ABG Total CO2 36 H (19-24) mmol/L ABG O2 Saturation 93.8 L (94-97) % Carbon Dioxide (22-30) mmol/L BUN (9-20) mg/dL Creatinine (0.66-1.25) mg/dL Glucose (74-99) mg/dL POC Glucose (mg/dL) 132 H (75-99) mg/dL Magnesium (1.6-2.3) mg/dL Assessment and Plan Assessment: Acute hypoxemic, hypercapnic respiratory failure secondary to severe COPD exacerbation and acute on chronic systolic CHF exacerbation. Patient is status post intubation on mechanical ventilation End stage COPD, as per the pulmonary team Subcutaneous emphysema Patient status post tracheostomy and PEG tube placement Ischemic cardiomyopathy with ejection fraction of 20-25% History of nicotine dependence History of coronary artery disease, status post stenting History of nonsustained ventricular tachycardia History of DVT Peripheral vascular disease Essential hypertension Hyperlipidemia Possible left lower lobe pneumonia Plan: This is a 67 years old male who presents with severe COPD requiring intubation, with possible pneumonia and CHF. Critical team/pulmonary team are following the patient. Patient is currently intubated in the ICU. Patient will benefit from Peg//tracheostomy.Labs and medication were resumed. Continue same treatment. Continue with symptomatic treatment. Resume home medication. Monitor lytes and vitals. DVT and GI prophylaxis. Further recommendationsof the clinical course of the patient DVT prophylaxis: Subcutaneous Lovenox GI Prophylaxis: Pepcid Prognosis is guarded and poor
[2018-09-18] MEDS: CHLORHEXIDINE GLUCONATE 15 ML CUP MUCOUS MEM SCH ×2 (10:03→20:55)
[2018-09-18] MEDS: NICOTINE 21MG/24HR PATCH TRANSDERM SCH (10:04)
[2018-09-18] MEDS: METOPROLOL TARTRATE 25 MG TAB PO SCH (10:04)
[2018-09-18] MEDS: FAMOTIDINE 20 MG/2 ML VIAL IV SCH ×2 (10:04→20:46)
[2018-09-18] MEDS: ENOXAPARIN 40 MG/0.4 ML SYRINGE SQ SCH (10:04)
[2018-09-18] MEDS: FUROSEMIDE 10 MG/ML 2 ML VIAL IV SCH ×2 (10:04→20:58)
[2018-09-18] MEDS: ASPIRIN 81 MG PO SCH (10:04)
[2018-09-18] MEDS: LISINOPRIL 2.5 MG TAB PO SCH ×2 (10:04→21:18)
[2018-09-18] MEDS: HYDROmorphone 1 MG/ML 1 ML SYRINGE IVP PRN ×2 (10:05→17:37)
[2018-09-18 12:15] LABS: Glucose,Whole Blood 150 mg/dL (75-99)
[2018-09-18] MEDS: cefTRIAXone 2,000 MG in SODIUM CHLORIDE 0.9% 100 ML IVPB SCH (15:38)
[2018-09-18] MEDS: AZITHROMYCIN 500 MG in SODIUM CHLORIDE 0.9% 250 ML IVPB SCH (16:51)
[2018-09-18 17:34] LABS: Glucose,Whole Blood 141 mg/dL (75-99)
[2018-09-18] MEDS: ATORVASTATIN 20 MG TAB PO SCH (21:07)
[2018-09-18 23:25] LABS: Glucose,Whole Blood 129 mg/dL (75-99)
[2018-09-19] MEDS: PROPOFOL 1,000 MG in EMPTY BAG 1 BAG IV SCH ×6 (00:13→20:10)
[2018-09-19] MEDS: SODIUM CHLORIDE 0.9% 1,000 ML IV SCH ×3 (00:14→23:10)
[2018-09-19] MEDS: INSULIN ASPART 100 UNIT/ML 1 ML 10 ML VIAL SQ SCH ×4 (00:15→18:19)
[2018-09-19] MEDS: METOPROLOL TARTRATE 25 MG TAB PO SCH ×3 (00:16→20:22)
[2018-09-19] MEDS: IPRATROPIUM-ALBUTEROL 3 ML NEB INHALATION SCH ×5 (03:58→20:22)
[2018-09-19] MEDS: CISATRACURIUM 200 MG in SODIUM CHLORIDE 0.9% 180 ML IV SCH ×2 (04:13→21:30)
[2018-09-19] MEDS: ARTIFICIAL TEARS-HYPROMELLOSE DROPS 15 ML BTL BOTH EYES SCH ×5 (04:14→20:10)
[2018-09-19 05:17] LABS: Basophils % (A) 0 %; Eosinophils # (A) 0.1 k/uL (0-0.7); Eosinophils % (A) 0 %; HCT 44.4 % (39.0-53.0); HGB 13.9 gm/dL (13.0-17.5); Lymphocytes # (A) 0.4 k/uL (1.0-4.8); Lymphocytes % (A) 3 %; MCH 31.8 pg (25.0-35.0); MCHC 31.2 g/dL (31.0-37.0); MCV 101.9 fL (80.0-100.0); Macrocytosis Slight; Monocytes # (A) 0.6 k/uL (0-1.0); Monocytes % (A) 4 %; Neutrophils # (A) 13.2 k/uL (1.3-7.7); Neutrophils % (A) 92 %; Platelet Count 147 k/uL (150-450); RBC 4.36 m/uL (4.30-5.90); WBC 14.3 k/uL (3.8-10.6)
[2018-09-19 05:19] LABS: ABG Base Excess 9.9 mmol/L; ABG HCO3 34 mmol/L (21-25); ABG Oxygen Saturation 95.3 % (94-97); ABG PCO2 53 mmHg (35-45); ABG PH 7.42 (7.35-7.45); ABG PO2 78 mmHg (83-108); ABG TCO2 36 mmol/L (19-24)
[2018-09-19 05:28] LABS: Anion Gap 4 mmol/L; Blood Urea Nitrogen 45 mg/dL (9-20); Calcium 8.4 mg/dL (8.4-10.2); Carbon Dioxide 31 mmol/L (22-30); Chloride 104 mmol/L (98-107); Glucose 179 mg/dL (74-99); Magnesium 2.6 mg/dL (1.6-2.3); Phosphorus 4.3 mg/dL (2.5-4.5); Potassium 3.8 mmol/L (3.5-5.1); Sodium 139 mmol/L (137-145)
--- NOTE | 2018-09-19 06:00 | XR ---
EXAMINATION TYPE: XR chest 1V portable DATE OF EXAM: 09/19/2018 HISTORY: Trach, subcutaneous emphysema. REFERENCE: Previous study dated 09/18/2018. FINDINGS: Tracheostomy tube is in place. Its tip overlies the tracheal air column in this single fron chantal projection. There is improving subcutaneous emphysema. Mediastinal air appears to have resolved. There is bibasilar airspace disease, worse on the left than the right. There are bilateral effusions. The heart is not enlarged. IMPRESSION: 1. IMPROVED SUBCUTANEOUS EMPHYSEMA AND PNEUMOMEDIASTINUM. 2. BIBASILAR AIRSPACE DISEASE. 3. SMALL, BILATERAL EFFUSIONS.
[2018-09-19 06:02] LABS: Glucose,Whole Blood 168 mg/dL (75-99)
[2018-09-19] MEDS: HYDROmorphone 1 MG/ML 1 ML SYRINGE IVP PRN ×3 (06:07→19:06)
[2018-09-19] MEDS: methylPREDNISolone SOD SUCCI 125 MG/2 ML VIAL IV SCH ×3 (06:09→18:21)
[2018-09-19] MEDS ORDERED: POTASSIUM BICARBONATE/CIT AC 20 MEQ TABLET.EFF NG-TUBE SCH (07:00)
[2018-09-19] MEDS: FORMOTEROL FUMARATE 20 MCG/2 ML NEBU INHALATION SCH ×2 (07:47→20:22)
[2018-09-19] MEDS: BUDESONIDE 1 MG/2 ML NEBU INHALATION SCH ×2 (07:47→20:22)
[2018-09-19] MEDS: ENOXAPARIN 40 MG/0.4 ML SYRINGE SQ SCH (08:37)
[2018-09-19] MEDS: CHLORHEXIDINE GLUCONATE 15 ML CUP MUCOUS MEM SCH ×2 (08:37→20:11)
[2018-09-19] MEDS: FAMOTIDINE 20 MG/2 ML VIAL IV SCH ×2 (08:37→20:19)
[2018-09-19] MEDS: LISINOPRIL 2.5 MG TAB PO SCH ×2 (08:38→20:22)
[2018-09-19] MEDS: NICOTINE 21MG/24HR PATCH TRANSDERM SCH (08:38)
[2018-09-19] MEDS: ASPIRIN 81 MG PO SCH (08:38)
[2018-09-19] MEDS: FUROSEMIDE 10 MG/ML 2 ML VIAL IV SCH ×2 (08:38→20:15)
--- NOTE | 2018-09-19 09:39 | P.PN ---
Subjective Progress Note Date: 09/19/18 Principal diagnosis: Respiratory failure Patient is still paralyzed and on the ventilator. Objective - Vital Signs Vital signs: Vital Signs Temp 98.2 F 09/19/18 08:00 Pulse 80 09/19/18 09:00 Resp 22 09/19/18 09:00 BP 138/67 09/16/18 07:00 Pulse Ox 94 L 09/19/18 09:00 Intake & Output 09/18/18 09/19/18 09/19/18 18:59 06:59 18:59 Intake Total 2080.142 1719.030 479.776 Output Total 1365 1345 175 Balance 715.142 374.030 304.776 Weight 87.6 kg 88.5 kg Intake: IV 1286 936 234 Azithromycin 500 mg In 250 Sodium Chloride 0.9% 250 ml @ 250 mls/hr IVPB Q24H [facility] Rx#:[id number] Pressure bag of 0.9 NaCl- 36 36 9 Sodium Chloride 0.9% 1, 900 900 225 000 ml @ 75 mls/hr IV . [id number] [facility] Rx#:[id number] cefTRIAXone 2,000 mg In 100 Sodium Chloride 0.9% 100 ml @ 100 mls/hr IVPB Q24H [facility] Rx#:[id number] Intake, IV Titration 554.142 618.030 80.776 Amount Cisatracurium 200 mg In 198.826 200 Sodium Chloride 0.9% 180 ml @ 2 MCG/KG/MIN 10.68 mls/hr IV .[id number] [facility] Rx #:[id number] Propofol 1,000 mg In 355.316 418.030 80.776 Empty Bag 1 bag @ Titrate IV .Q0M [facility] Rx#: [id number] Tube Feeding 210 165 135 Other 30 30 Output: Urine 1365 1345 175 Other: Voiding Method Indwelling Catheter Indwelling Catheter ABP, PAP, CO, CI - Last Documented Arterial Blood Pressure 143/62 - Exam Dramatic decrease in subcutaneous emphysema. Chest x-ray looks much better. - Labs CBC & Chem 7: 09/19/18 04:53 09/19/18 04:53 Labs: Abnormal Lab Results - Last 24 Hours (Table) 09/18/18 09/18/18 09/18/18 Range/Units 12:13 17:32 23:17 WBC (3.8-10.6) k/uL MCV (80.0-100.0) fL Plt Count (150-450) k/uL Neutrophils # (1.3-7.7) k/uL Lymphocytes # (1.0-4.8) k/uL ABG pCO2 (35-45) mmHg ABG pO2 (83-108) mmHg ABG HCO3 (21-25) mmol/L ABG Total CO2 (19-24) mmol/L Carbon Dioxide (22-30) mmol/L BUN (9-20) mg/dL Creatinine (0.66-1.25) mg/dL Glucose (74-99) mg/dL POC Glucose (mg/dL) 150 H 141 H 129 H (75-99) mg/dL Magnesium (1.6-2.3) mg/dL 09/19/18 09/19/18 09/19/18 Range/Units 04:53 04:53 05:12 WBC 14.3 H (3.8-10.6) k/uL MCV 101.9 H (80.0-100.0) fL Plt Count 147 L (150-450) k/uL Neutrophils # 13.2 H (1.3-7.7) k/uL Lymphocytes # 0.4 L (1.0-4.8) k/uL ABG pCO2 53 H (35-45) mmHg ABG pO2 78 L (83-108) mmHg ABG HCO3 34 H (21-25) mmol/L ABG Total CO2 36 H (19-24) mmol/L Carbon Dioxide 31 H (22-30) mmol/L BUN 45 H (9-20) mg/dL Creatinine 0.52 L (0.66-1.25) mg/dL Glucose 179 H (74-99) mg/dL POC Glucose (mg/dL) (75-99) mg/dL Magnesium 2.6 H (1.6-2.3) mg/dL 09/19/18 Range/Units 06:00 WBC (3.8-10.6) k/uL MCV (80.0-100.0) fL Plt Count (150-450) k/uL Neutrophils # (1.3-7.7) k/uL Lymphocytes # (1.0-4.8) k/uL ABG pCO2 (35-45) mmHg ABG pO2 (83-108) mmHg ABG HCO3 (21-25) mmol/L ABG Total CO2 (19-24) mmol/L Carbon Dioxide (22-30) mmol/L BUN (9-20) mg/dL Creatinine (0.66-1.25) mg/dL Glucose (74-99) mg/dL POC Glucose (mg/dL) 168 H (75-99) mg/dL Magnesium (1.6-2.3) mg/dL Microbiology - Last 24 Hours (Table) 09/13/18 09:48 Fungal Culture - Preliminary Bronchoalviolar Lavage - Left Yeast species Assessment and Plan Plan: The airleak from his tracheal tear appears to have improved dramatically. With select keep him paralyzed and ventilated for at least another 24-48 hours. Longer would depend on clinical situation otherwise.
--- NOTE | 2018-09-19 11:02 | P.PN ---
Subjective Progress Note Date: 09/19/18 Principal diagnosis: Respiratory failure Progress note dated 09/14/2018 67-year-old male with history of acute on chronic hypoxemic and hypercapnic respiratory failure requiring intubation on September 09 for respiratory failure. The patient also has a history of chronic systolic congestive heart failure. He has a history of chronic tobacco dependence, noncompliance with medications, ischemic cardiomyopathy, with an ejection fraction of 20-25%, a previous history of ventilator dependent respiratory failure, CAD with previous stent placements in the right coronary artery and circumflex coronary artery, nonsustained ventricular tachycardia, DVT, PVOD, status post fem-fem bypass, hypertension, hyperlipidemia, left lower lobe pneumonia, status post bronchoscopy and lavage on 09/13/2018. Today, we'll do a daily interruption of sedation. We will place him on pressure support of 12 and CPAP of 5. Volumes and respiratory rates are good. He may not be ready for extubation. Prior to this, he was on the volume assist control mode rate of 22, tidal volume 500, FiO2 50% and PEEP of 5. Arterial blood gases show a PaO2 of 62, a PaCO2 of 50, and if 7.44. He is on a saline IV at 75 mL now, propofol 65 mics per kilogram per minute, and vital high protein at 35 with a goal of 45 mL an hour. Chest x- ray shows a left lower lobe infiltrate with atelectasis. Current microbiologic studies are negative or pending. He is currently on azithromycin and ceftriaxone. His overall prognosis remains poor given his multitude of medical problems as detailed above. Progress note dated 09/15/2018 67-year-old male with a history of acute on chronic hypoxemic and hypercapnic respiratory failure, requiring intubation and mechanical ventilation on September 09. The patient also has a history of chronic systolic heart failure, chronic tobacco dependence, noncompliance with medications, ischemic cardiomyopathy with an ejection fraction of 20-25%, a previous history of ventilator dependent respiratory failure, coronary artery disease with previous stent placements in the right coronary artery and circumflex coronary artery, nonsustained ventricular tachycardia, DVT, PVOD, status post fem-fem bypass, hypertension, hyperlipidemia, left lower lobe pneumonia, and status post bronchoscopy with BAL on 09/13/2018. Yesterday, we attempted a daily interruption of sedation but he did very poorly. We place him on pressure support of 12 and CPAP of 5. After a few minutes. Place him back on the volume assist control mode. Currently, he is on volume assist control, rate of 22, tidal volume 500, FiO2 50 %, and PEEP of 5. Arterial blood gases show a PaO2 of 66 a PaCO2 of 47 and a pH 7.46. His chest x-ray showed bibasilar infiltrates, left greater than right. He is on propofol at 35 mcg/kg/m, saline IV at 75 mL an hour and vital high protein at 45 with a goal of 45 mL an hour. A consultation has been placed with surgery for possible tracheostomy and PEG tube placement on . Progress note dated 09/16/2018 67-year-old male with a history of acute on chronic hypoxemic and hypercapnic respiratory failure, which required intubation and mechanical ventilation on September 09. The patient also has a history of chronic systolic heart failure, chronic tobacco dependence, noncompliance with medications, ischemic cardiomyopathy with an ejection fraction of 20-25%, a previous history of ventilator dependent respiratory failure, CAD with previous stenting, nonsustained ventricular tachycardia, DVT, PVOD, status post fem-fem bypass, hypertension, hyperlipidemia and left lower lobe pneumonia. The patient is also status post bronchoscopy with BAL on 09/13/2018. The patient's vent settings include the volume assist control mode with a rate of 22, tidal volume 500, FiO2 50%, and PEEP of 5. Arterial blood gases show a PaO2 of 73, a PaCO2 49 and a pH is 7.44. The patient spent 1-1/2 hours on pressure support 8 CPAP of 5 yesterday September 15. His IVs included saline at 75 mL an hour, propofol at 65 mics per kilogram per minute, and vital high protein at 45 with a goal of 45 mL an hour. The patient is scheduled for a tracheostomy and PEG tube tomorrow and I think that should occur. I don't believe he is going to wean anytime soon., Thus far, all microbiologic studies are negative or pending. Laboratory data includes a sodium of 141, potassium 4.2, chlorides 106, and a CO2 of 32. His anion gap is normal, with a BUN of 39 and creatinine of 0.54. Chest x-ray continues to show a infiltrate or atelectasis with a small effusion in the left lower lung, and a relatively clear right lung. Progress note dated 09/17/2018 67-year-old male with a history of acute on chronic hypoxemic and hypercapnic respiratory failure requiring intubation and mechanical ventilation on September 09. Unfortunately, despite daily interruption's of sedation and spontaneous breathing trials, the patient has not been able to be extubated. Today, he will have a tracheostomy and PEG tube placement one of the thoracic surgeons. He's currently on the volume assist control mode with a rate of 22, tidal volume 500, FiO2 50%, and a PEEP of 5. Arterial blood gases show a PaO2 of 70, a PaCO2 of 47 and a pH of 7.46. He is getting saline at 75 mL an hour propofol 60 mikes per kilogram per minute and tube feeds are on hold. Chest x-ray continues to show a left lower lobe pneumonia. Microbiologic studies are thus far negative. There was some yeast in his bronchial washings likely a contaminant. He remains on Rocephin and Zithromax as antibiotic coverage. White count 11.3, hemoglobin 13.3, hematocrit 41.9 and platelet count 131,000. Sodium 139, potassium 4.1, chlorides 106, CO2 31, anion gap is normal, BUN 37 and creatinine 0.57. Medications are reviewed. The patient's past medical history is quite extensive and includes among other things, chronic systolic heart failure, chronic tobacco dependence, noncompliance with medications, ischemic cardiomyopathy, ejection fraction 20-25%, a previous history of ventilator dependent respiratory failure, CAD with previous stenting, nonsustained ventricular tachycardia, DVT, PVO D, some/femoral bypass, hypertension, hyperlipidemia, and the pneumonia. Progress note dated 09/18/2018 67-year-old male with history of acute on chronic hypoxemic and hypercapnic respiratory failure requiring intubation and mechanical ventilation on September 09. The patient was not able to be weaned and extubated and underwent a tracheostomy and PEG tube placement done yesterday. Currently, he is on the volume assist control mode with a rate of 22, tidal volume 500, FiO2 90% and PEEP of 8. Arterial blood gases show a PaO2 of 68, a PaCO2 of 51 and a pH of 7.45. The patient's on saline IV at 75 mL an hour, propofol 75 mics per kilogram per minute, and Nimbex at 2 mics per kilogram per minute with a peripheral nerve stimulator. Today, the surgeon who did a tracheostomy was going to live down the tube with a proctoscope to make sure everything is in good order. Unfortunately, the patient is also developed massive subcutaneous emphysema. He also has pneumomediastinum. I do not see a pneumothorax. The patient has a history of chronic systolic heart failure, chronic tobacco dependence, noncompliance with medications, ischemic cardiomyopathy with an ejection fraction of about 20-25%, a previous history of ventilator dependent respiratory failure, CAD with previous stenting, nonsustained ventricular tachycardia, DVT, P VOD, status post fem-fem bypass, hypertension, hyperlipidemia, and left lower lobe pneumonia. The patient underwent bronchoscopy with BAL on September 13. Microbiology is all negative thus far. White count is 14.2, hemoglobin 14 hematocrit 44.4 and platelet count was 136, 000. Sodium potassium and chloride are all normal. CO2 is 31, anion gap is normal, and BUN is 42 with a creatinine of 0.59. Chest x-ray shows extensive subcutaneous emphysema and pneumomediastinum. Progress note dated 09/19/2018 67-year-old male with a history of acute on chronic hypoxemic and hypercapnic respiratory failure, which required intubation and mechanical ventilation on September 09. The patient was not been successfully weaned and therefore underwent a tracheostomy and PEG tube placement on September 17. Unfortunately, the patient developed severe subcutaneous emphysema and pneumomediastinum. He remains on the ventilator, sedated and paralyzed. Currently, he is on the volume assist control mode, rate 22, tidal volume 500, FiO2 90% and PEEP of 8. Arterial blood gases show a PaO2 of 78, a pCO2 of 53 and a pH of 7.42. His saline IV is running at 75 mL an hour, propofol 60 mics per kilogram per minute , Nimbex at 2 mics per kilogram per minute, and vital high protein at 45 with a goal of 45 mL an hour. Microbiologic studies are negative. Chest x-ray shows some bibasilar infiltrates. I spoke to the thoracic surgeon today who is happy with the patient's progress. He would like to patient's sedated and paralyzed for 1 more day at least. Today's chest x-ray shows significantly improved subcutaneous emphysema. He still does have some subcutaneous emphysema but not near as much. The patient's overall prognosis remains very guarded. He likely will be a candidate for specialized nursing facility down the road. White count 14.3, hemoglobin 13.9, hematocrit 44.4 and platelet count 147,000. Sodium potassium chloride all normal. CO2 31. Anion gap is 4. BUN is 45 with creatinine 0.52. Objective - Vital Signs Vital signs: Vital Signs Temp 98.2 F 09/19/18 08:00 Pulse 64 09/19/18 10:00 Resp 22 09/19/18 10:00 BP 138/67 09/16/18 07:00 Pulse Ox 93 L 09/19/18 10:00 Intake & Output 09/18/18 09/19/18 09/19/18 18:59 06:59 18:59 Intake Total 2080.142 1719.030 602.776 Output Total 1365 1345 725 Balance 715.142 374.030 -122.224 Weight 87.6 kg 88.5 kg Intake: IV 1286 936 312 Azithromycin 500 mg In 250 Sodium Chloride 0.9% 250 ml @ 250 mls/hr IVPB Q24H [facility] Rx#:[id number] Pressure bag of 0.9 NaCl- 36 36 12 Sodium Chloride 0.9% 1, 900 900 300 000 ml @ 75 mls/hr IV . [id number] [facility] Rx#:[id number] cefTRIAXone 2,000 mg In 100 Sodium Chloride 0.9% 100 ml @ 100 mls/hr IVPB Q24H [facility] Rx#:[id number] Intake, IV Titration 554.142 618.030 80.776 Amount Cisatracurium 200 mg In 198.826 200 Sodium Chloride 0.9% 180 ml @ 2 MCG/KG/MIN 10.68 mls/hr IV .[id number] [facility] Rx #:[id number] Propofol 1,000 mg In 355.316 418.030 80.776 Empty Bag 1 bag @ Titrate IV .Q0M [facility] Rx#: [id number] Tube Feeding 210 165 180 Other 30 30 Output: Urine 1365 1345 725 Other: Voiding Method Indwelling Catheter Indwelling Catheter ABP, PAP, CO, CI - Last Documented Arterial Blood Pressure 118/53 - Exam No acute distress, sedated, with a tracheostomy tube and NG tube in place. HEENT examination is grossly unremarkable. Mucous membranes are moist. Neck supple. Full range of motion. No adenopathy thyromegaly or neck vein distention. Cardiovascular examination reveals regular rhythm rate. S1-S2 normal. No S3 or S4. No discernible murmur noted. Heart sounds are distant. Lungs reveal coarse diffuse bilateral inspiratory and expiratory rhonchi and wheezes. No crackles are noted. Breath sounds equal bilaterally. Sounds have really not changed over the course of a couple days on this patient. Subcutaneous emphysema is much improved. It is still present but not as significant. Abdomen soft and bowel sounds are heard. No masses or tenderness. PEG tube noted. Extremities are intact. No cyanosis clubbing or edema. Skin is without rash or lesion. Neurologic examination is very difficult to assess given the fact that he is on propofol at 60 mcg/kg/m and Nimbex at 2 mics per kilogram per minute. - Labs CBC & Chem 7: 09/19/18 04:53 09/19/18 04:53 Labs: Abnormal Lab Results - Last 24 Hours (Table) 09/18/18 09/18/18 09/18/18 Range/Units 12:13 17:32 23:17 WBC (3.8-10.6) k/uL MCV (80.0-100.0) fL Plt Count (150-450) k/uL Neutrophils # (1.3-7.7) k/uL Lymphocytes # (1.0-4.8) k/uL ABG pCO2 (35-45) mmHg ABG pO2 (83-108) mmHg ABG HCO3 (21-25) mmol/L ABG Total CO2 (19-24) mmol/L Carbon Dioxide (22-30) mmol/L BUN (9-20) mg/dL Creatinine (0.66-1.25) mg/dL Glucose (74-99) mg/dL POC Glucose (mg/dL) 150 H 141 H 129 H (75-99) mg/dL Magnesium (1.6-2.3) mg/dL 09/19/18 09/19/18 09/19/18 Range/Units 04:53 04:53 05:12 WBC 14.3 H (3.8-10.6) k/uL MCV 101.9 H (80.0-100.0) fL Plt Count 147 L (150-450) k/uL Neutrophils # 13.2 H (1.3-7.7) k/uL Lymphocytes # 0.4 L (1.0-4.8) k/uL ABG pCO2 53 H (35-45) mmHg ABG pO2 78 L (83-108) mmHg ABG HCO3 34 H (21-25) mmol/L ABG Total CO2 36 H (19-24) mmol/L Carbon Dioxide 31 H (22-30) mmol/L BUN 45 H (9-20) mg/dL Creatinine 0.52 L (0.66-1.25) mg/dL Glucose 179 H (74-99) mg/dL POC Glucose (mg/dL) (75-99) mg/dL Magnesium 2.6 H (1.6-2.3) mg/dL 09/19/18 Range/Units 06:00 WBC (3.8-10.6) k/uL MCV (80.0-100.0) fL Plt Count (150-450) k/uL Neutrophils # (1.3-7.7) k/uL Lymphocytes # (1.0-4.8) k/uL ABG pCO2 (35-45) mmHg ABG pO2 (83-108) mmHg ABG HCO3 (21-25) mmol/L ABG Total CO2 (19-24) mmol/L Carbon Dioxide (22-30) mmol/L BUN (9-20) mg/dL Creatinine (0.66-1.25) mg/dL Glucose (74-99) mg/dL POC Glucose (mg/dL) 168 H (75-99) mg/dL Magnesium (1.6-2.3) mg/dL Microbiology - Last 24 Hours (Table) 09/13/18 09:48 Fungal Culture - Preliminary Bronchoalviolar Lavage - Left Yeast species Assessment and Plan Assessment: Assessment Acute hypoxemic and hypercapnic respiratory failure, secondary to severe COPD exacerbation and chronic systolic CHF exacerbation, requiring intubation and mechanical ventilation on September 09 Status post bronchoscopy for sampling of the lower respiratory tract and removal of airway secretions on September 13. Status post tracheostomy and PEG tube placement on 09/17/2018. Massive subcutaneous emphysema and pneumomediastinum Severe end-stage COPD History of chronic and ongoing tobacco dependence Severe ischemic cardiomyopathy with ejection fraction of 20-25% History of noncompliance with medications and follow-ups Previous history of respiratory failure with ventilator dependence Coronary artery disease, status post stent placements in the right coronary artery and circumflex coronary artery History of nonsustained ventricular tachycardia History of DVT Status post fem-fem bypass for peripheral vascular disease History of essential hypertension History of hyperlipidemia Probable left lower lobe pneumonia Plan: Plan dated 09/14/2018 The patient remains on mechanical ventilator. We switch him from the volume assist control mode to the pressure support mode. He is on PSV 12 and CPAP of 5. He remains on 50%. He remains on tube feeds. Microbiology is currently either negative or pending. White count 10.4, hemoglobin 13.8, hematocrit 44.3 , and platelet count 125,000. Sodium potassium chloride are all normal. CO2 is 33. BUN is 35 with a creatinine 0.56. His medications are reviewed. Remains on albuterol and Atrovent updrafts every 4 hours around the clock as well as Pulmicort 1 mg and formoterol 20 g. Is getting all the other usual medications. His prognosis is poor. He apparently only tolerated pressure support for about 12 minutes. He was placed back on the volume assist control mode and be sedated. A consultation will be given to the surgeon for possible tracheostomy and PEG tube placement. Prognosis is very poor. Critical care time 35 minutes Plan dated 09/15/2018 Again, we will attempt a daily eruption of sedation with a pressure support of 5 and CPAP of 5. We have put a consultation in the surgery for possible tracheostomy and PEG tube placement to be done on . His chest x-ray shows evidence of bibasal pneumonia, left greater than right. Microbiology is negative. White count 10.5, hemoglobin 13.8, hematocrit 43 and platelet count 132,000. Sodium and potassium and chloride are all normal. CO2 is 32. Anion gap is normal. BUN is 37 with a creatinine 0.60. The patient's medications are reviewed. He remains on DuoNeb nebs every 4 hours around the clock, Rocephin, azithromycin, Pulmicort updrafts mixed with formoterol, and Solu- Medrol. His overall prognosis is poor. The patient has not really taken very good care of himself. We will continue supportive care. Possible tracheostomy and PEG tube placement on . Critical care time 36 minutes Plan dated 09/16/2018 Today, we will do a daily interruption of sedation as we always do in these intubated patient's and assess the patient for a spontaneous breathing trial. Having said that, the patient has not done well previously on his spontaneous breathing trials. Nonetheless, we'll try again today. He is scheduled for tracheostomy and PEG tube tomorrow with one of the surgeons. I think that's appropriate. His labs and x-rays are reviewed. His chest x-ray continues to show a infiltrate/atelectasis and small effusion at the left lung base. Microbiology is as far negative. His medications are reviewed and are appropriate. Prognosis is guarded. We'll continue support with all the current treatments. Critical care time 33 minutes Plan dated 09/17/2018 The patient will likely have a tracheostomy and PEG tube placed today. As needed as he has failed his previous spontaneous breathing trials. He has a number different medical problems as delineated above. Arterial blood gases are reasonable. Tube feeds are on hold in anticipation of the procedure today. We will likely have to select specialty evaluate the patient for possible placement. His overall prognosis is poor. We will continue to follow. Medications labs are reviewed. Remains on azithromycin and ceftriaxone for his antibiotics. His microbiologic studies are negative. Bronchial washes are negative. Critical care time 34 minutes Plan dated 09/18/2018 The patient continued with massive subcutaneous emphysema and pneumomediastinum. The surgeon to do a bronchoscopy today to check the placement of the tracheostomy tube. Apparently everything seems to be okay. He remains on propofol and Nimbex for sedation and paralysis. Labs x-rays a medications are all reviewed. Microbiologic studies are negative. He remains on Zithromax and ceftriaxone. Hopefully, he will be stable enough to eventually be transferred to a specialized nursing facility. Prognosis is very guarded and he is very critically ill. Critical care time 37 minutes Plan dated 09/19/2018 The patient subcutaneous emphysema is much improved. The patient's chest x-ray is much improved. The patient will remain sedated and paralyzed for another 24 hours. I did speak to the thoracic surgeon. Microbiologic studies are thus far negative. Her laboratory data x-rays a medications are all reviewed. Everything seems to be relatively appropriate. He remains on Zithromax and ceftriaxone even though his culture data is negative. He did have a bronchoscopy by my partner early on in his hospital course and although samplings are negative. Prognosis is very guarded. I suspect eventual transfer and discharge to a specialized nursing facility for long-term ventilator management. Critical care time 38 minutes Time with Patient: Greater than 30
[2018-09-19 12:10] LABS: Glucose,Whole Blood 198 mg/dL (75-99)
[2018-09-19] MEDS: cefTRIAXone 2,000 MG in SODIUM CHLORIDE 0.9% 100 ML IVPB SCH (15:42)
[2018-09-19 18:17] LABS: Glucose,Whole Blood 130 mg/dL (75-99)
[2018-09-19] MEDS: AZITHROMYCIN 500 MG in SODIUM CHLORIDE 0.9% 250 ML IVPB SCH (18:21)
[2018-09-19] MEDS: ATORVASTATIN 20 MG TAB PO SCH (20:22)
--- NOTE | 2018-09-19 20:54 | P.PN ---
Subjective On-call hospitalist covering Dr. Negron starting 09/16/2018 This is a 67 years old male with past medical history of coronary artery disease , congestive heart failure, COPD, DVT, GERD, hyperlipidemia, hypertension, myocardial infarction, who presents because of severe dyspnea and hypoxia needed intubation. Patient remains intubated in the ICU and cannot provide to his history which was obtained from the staff and medical records. Aspirate was patient also have ischemic cardiomyopathy with ejection fraction of 20-25%. Critical care team are following the patient. Patient is planned for EGD and PEG tube tomorrow already. Patient denied the fluids and propofol. Labs showing mild leukocytosis of 11.1 K, mild low platelets at 128. Sodium 141, potassium 4.2, creatinine 0.5, 09/17/18 pt remains as yesterday when i first saw him , he is intubated and failed breathing trials. pt is for tracheostomy and PEG tube placement today. 09/18/2018 Patient is status post tracheostomy and PEG tube yesterday. However the procedure was complicated by subcutaneous emphysema patient looks perfectly today, however he remains unresponsive. Vitas looks stable and patient is afebrile. Blood pressure 134/57. Labs shows WBC of 14.2 patient remains on Solu-Medrol. Cardiology and skull care input is appreciated. No active cardiac disease is present. Patient with ischemic cardiomyopathy with ejection fraction of 20-25%. Prognosis remains poor. 09/19/2018 Patient status post tracheostomy and PEG tube. He has subcutaneous emphysema however is improving significantly today. he remains unresponsive and sedated. critical care team are following the pt closely while in ICU with vent mx Review of systems: N/a Medication:- albuterol 0.5 mg, ipratropium 3 mg, aspirin 81 mg Lipitor 40 mg, Zithromax 500 mg, Pulmicort 1 mg, ceftriaxone 2000 mg, chlorhexidine 15 mL, Lovenox 40 mg, Pepcid 20 mg, Lasix 20 mg, NovoLog sliding scale, Zestril 2.5 mg , Solu-Medrol 60 mg, Lopressor 25 mg, nicotine 21 mg, propofol 1000 mg, Requip 2 mg, chest x-ray shows extensive subcutaneous in erythema and with the resolution of the pulmonary infiltrate. And her cervical exam remains stable. Objective - Vital Signs Vital signs: Vital Signs Temp 97.9 F 09/19/18 12:00 Pulse 87 09/19/18 14:00 Resp 22 09/19/18 14:00 BP 138/67 09/16/18 07:00 Pulse Ox 95 09/19/18 14:00 Intake & Output 09/18/18 09/19/18 09/19/18 18:59 06:59 18:59 Intake Total 2080.142 6741.621 9326.776 Output Total 1365 1345 970 Balance 715.142 374.030 289.776 Weight 87.6 kg 88.5 kg Intake: IV 1286 936 624 Azithromycin 500 mg In 250 Sodium Chloride 0.9% 250 ml @ 250 mls/hr IVPB Q24H [facility] Rx#:[id number] Pressure bag of 0.9 NaCl- 36 36 24 Sodium Chloride 0.9% 1, 900 900 600 000 ml @ 75 mls/hr IV . [id number] [facility] Rx#:[id number] cefTRIAXone 2,000 mg In 100 Sodium Chloride 0.9% 100 ml @ 100 mls/hr IVPB Q24H [facility] Rx#:[id number] Intake, IV Titration 554.142 618.030 80.776 Amount Cisatracurium 200 mg In 198.826 200 Sodium Chloride 0.9% 180 ml @ 2 MCG/KG/MIN 10.68 mls/hr IV .[id number] [facility] Rx #:[id number] Propofol 1,000 mg In 355.316 418.030 80.776 Empty Bag 1 bag @ Titrate IV .Q0M [facility] Rx#: [id number] Tube Feeding 210 165 495 Other 30 60 Output: Urine 1365 1345 970 Other: Voiding Method Indwelling Catheter Indwelling Catheter ABP, PAP, CO, CI - Last Documented Arterial Blood Pressure 140/65 - Exam GENERAL: Patient is intubated HEENT: Pupils are round and equally reacting to light. EOMI. No scleral icterus. No conjunctival pallor. Normocephalic, atraumatic. No pharyngeal erythema. No thyromegaly. CARDIOVASCULAR: S1 and S2 present. No murmurs, rubs, or gallops. PULMONARY: Chest is clear to auscultation, no wheezing or crackles. ABDOMEN: Soft, nontender, nondistended, normoactive bowel sounds. No palpable organomegaly. MUSCULOSKELETAL: No joint swelling or deformity. EXTREMITIES: No cyanosis, clubbing, or pedal edema. NEUROLOGICAL: Gross neurological examination did not reveal any focal deficits. SKIN: No rashes. - Labs CBC & Chem 7: 09/19/18 04:53 09/19/18 04:53 Labs: Abnormal Lab Results - Last 24 Hours (Table) 09/18/18 09/18/18 09/19/18 Range/Units 17:32 23:17 04:53 WBC 14.3 H (3.8-10.6) k/uL MCV 101.9 H (80.0-100.0) fL Plt Count 147 L (150-450) k/uL Neutrophils # 13.2 H (1.3-7.7) k/uL Lymphocytes # 0.4 L (1.0-4.8) k/uL ABG pCO2 (35-45) mmHg ABG pO2 (83-108) mmHg ABG HCO3 (21-25) mmol/L ABG Total CO2 (19-24) mmol/L Carbon Dioxide (22-30) mmol/L BUN (9-20) mg/dL Creatinine (0.66-1.25) mg/dL Glucose (74-99) mg/dL POC Glucose (mg/dL) 141 H 129 H (75-99) mg/dL Magnesium (1.6-2.3) mg/dL 09/19/18 09/19/18 09/19/18 Range/Units 04:53 05:12 06:00 WBC (3.8-10.6) k/uL MCV (80.0-100.0) fL Plt Count (150-450) k/uL Neutrophils # (1.3-7.7) k/uL Lymphocytes # (1.0-4.8) k/uL ABG pCO2 53 H (35-45) mmHg ABG pO2 78 L (83-108) mmHg ABG HCO3 34 H (21-25) mmol/L ABG Total CO2 36 H (19-24) mmol/L Carbon Dioxide 31 H (22-30) mmol/L BUN 45 H (9-20) mg/dL Creatinine 0.52 L (0.66-1.25) mg/dL Glucose 179 H (74-99) mg/dL POC Glucose (mg/dL) 168 H (75-99) mg/dL Magnesium 2.6 H (1.6-2.3) mg/dL 09/19/18 Range/Units 12:08 WBC (3.8-10.6) k/uL MCV (80.0-100.0) fL Plt Count (150-450) k/uL Neutrophils # (1.3-7.7) k/uL Lymphocytes # (1.0-4.8) k/uL ABG pCO2 (35-45) mmHg ABG pO2 (83-108) mmHg ABG HCO3 (21-25) mmol/L ABG Total CO2 (19-24) mmol/L Carbon Dioxide (22-30) mmol/L BUN (9-20) mg/dL Creatinine (0.66-1.25) mg/dL Glucose (74-99) mg/dL POC Glucose (mg/dL) 198 H (75-99) mg/dL Magnesium (1.6-2.3) mg/dL Microbiology - Last 24 Hours (Table) 09/13/18 09:48 Fungal Culture - Preliminary Bronchoalviolar Lavage - Left Yeast species Assessment and Plan Assessment: Acute hypoxemic, hypercapnic respiratory failure secondary to severe COPD exacerbation and acute on chronic systolic CHF exacerbation. Patient is status post intubation on mechanical ventilation End stage COPD, as per the pulmonary team Subcutaneous emphysema Patient status post tracheostomy and PEG tube placement Ischemic cardiomyopathy with ejection fraction of 20-25% History of nicotine dependence History of coronary artery disease, status post stenting History of nonsustained ventricular tachycardia History of DVT Peripheral vascular disease Essential hypertension Hyperlipidemia Possible left lower lobe pneumonia Plan: This is a 67 years old male who presents with severe COPD requiring intubation, with possible pneumonia and CHF. Critical team/pulmonary team are following the patient. Patient is currently intubated in the ICU. Patient will benefit from Peg//tracheostomy.Labs and medication were resumed. Continue same treatment. Continue with symptomatic treatment. Resume home medication. Monitor lytes and vitals. DVT and GI prophylaxis. Further recommendationsof the clinical course of the patient DVT prophylaxis: Subcutaneous Lovenox GI Prophylaxis: Pepcid Prognosis is guarded and poor
[2018-09-19 20:55] LABS: ABG Base Excess 11.9 mmol/L; ABG HCO3 35 mmol/L (21-25); ABG PCO2 43 mmHg (35-45); ABG PH 7.51 (7.35-7.45); ABG TCO2 36 mmol/L (19-24)
[2018-09-19 20:57] LABS: ABG PO2 42 mmHg (83-108)
--- NOTE | 2018-09-19 21:06 | XR ---
EXAMINATION TYPE: XR chest 1V portable DATE OF EXAM: 09/19/2018 CLINICAL HISTORY: Follow-up subcutaneous emphysema TECHNIQUE: Single AP portable upright view of the chest is obtained. COMPARISON: Chest x-ray from one day earlier FINDINGS: Subcutaneous emphysema is again seen throughout the upper chest and neck. A tracheostomy t ube is again present and unchanged position. Small bilateral pleural effusions are evident with assoc iated atelectasis. No discrete pneumothorax. The cardiomediastinal silhouette is unchanged. IMPRESSION: 1. Redemonstration of subcutaneous emphysema along the neck and chest wall. Similar to the most recen t prior study. 2. Stable bilateral pleural effusions. 3. Stable position of tracheostomy tube.
[2018-09-19 21:08] LABS: HCT 43.5 % (39.0-53.0); HGB 13.4 gm/dL (13.0-17.5); MCH 31.6 pg (25.0-35.0); MCHC 30.8 g/dL (31.0-37.0); MCV 102.6 fL (80.0-100.0); Macrocytosis Slight; Mean Platelet Volume 8.1; Platelet Count 146 k/uL (150-450); RBC 4.24 m/uL (4.30-5.90); RDW 13.3 % (11.5-15.5); WBC 12.9 k/uL (3.8-10.6)
[2018-09-19 21:13] LABS: INR 1.1 (<1.2); Prothrombin Time 10.8 sec (9.0-12.0)
[2018-09-19 21:24] LABS: Anion Gap 2 mmol/L; Blood Urea Nitrogen 45 mg/dL (9-20); Calcium 8.2 mg/dL (8.4-10.2); Carbon Dioxide 32 mmol/L (22-30); Chloride 106 mmol/L (98-107); Glucose 170 mg/dL (74-99); Potassium 4.1 mmol/L (3.5-5.1); Sodium 140 mmol/L (137-145)
[2018-09-19] MEDS ORDERED: NOREPINEPHRINE 4 MG in SODIUM CHLORIDE 0.9% 250 ML IV SCH (21:45)
[2018-09-19] MEDS: SODIUM CHLORIDE 0.9% 2,000 ML IV ONE ×2 (22:05→23:08)
[2018-09-19 23:34] LABS: Glucose,Whole Blood 134 mg/dL (75-99)
[2018-09-20] MEDS: PROPOFOL 1,000 MG in EMPTY BAG 1 BAG IV SCH ×6 (00:02→22:05)
[2018-09-20] MEDS: ARTIFICIAL TEARS-HYPROMELLOSE DROPS 15 ML BTL BOTH EYES SCH ×7 (00:05→23:14)
[2018-09-20] MEDS: methylPREDNISolone SOD SUCCI 125 MG/2 ML VIAL IV SCH ×4 (00:05→18:08)
[2018-09-20] MEDS: INSULIN ASPART 100 UNIT/ML 1 ML 10 ML VIAL SQ SCH ×4 (00:18→18:07)
[2018-09-20] MEDS: IPRATROPIUM-ALBUTEROL 3 ML NEB INHALATION SCH ×6 (00:29→19:26)
[2018-09-20 05:04] LABS: Basophils % (A) 0 %; Eosinophils # (A) 0.2 k/uL (0-0.7); Eosinophils % (A) 1 %; HCT 45.5 % (39.0-53.0); Lymphocytes # (A) 0.4 k/uL (1.0-4.8); Lymphocytes % (A) 2 %; MCH 31.7 pg (25.0-35.0); MCHC 30.7 g/dL (31.0-37.0); MCV 103.2 fL (80.0-100.0); Macrocytosis Slight; Mean Platelet Volume 8.4; Monocytes # (A) 0.5 k/uL (0-1.0); Monocytes % (A) 3 %; Neutrophils # (A) 17.6 k/uL (1.3-7.7); Neutrophils % (A) 94 %; Platelet Count 145 k/uL (150-450); RBC 4.41 m/uL (4.30-5.90); RDW 13.3 % (11.5-15.5); WBC 18.8 k/uL (3.8-10.6)
[2018-09-20 05:32] LABS: Anion Gap 2 mmol/L; Blood Urea Nitrogen 46 mg/dL (9-20); Calcium 8.3 mg/dL (8.4-10.2); Carbon Dioxide 31 mmol/L (22-30); Chloride 107 mmol/L (98-107); Glucose 178 mg/dL (74-99); Magnesium 2.3 mg/dL (1.6-2.3); Phosphorus 4.1 mg/dL (2.5-4.5); Potassium 3.9 mmol/L (3.5-5.1); Sodium 140 mmol/L (137-145)
[2018-09-20 05:55] LABS: ABG HCO3 32 mmol/L (21-25); ABG PCO2 57 mmHg (35-45); ABG PH 7.36 (7.35-7.45); ABG PO2 75 mmHg (83-108)
--- NOTE | 2018-09-20 06:15 | XR ---
EXAMINATION TYPE: XR chest 1V portable DATE OF EXAM: 09/20/2018 HISTORY: Trach, subcutaneous emphysema. REFERENCE: Previous study dated 09/19/2018. FINDINGS: There is a tracheostomy tube in place. Its tip overlies the tracheal air column in this sin gle frontal projection. Heart size upper limits of normal. There is bibasilar airspace disease. There is a right-sided effusi on. Subcutaneous emphysema has improved. IMPRESSION: 1. CONTINUING BIBASILAR AIRSPACE DISEASE. 2. ENLARGING RIGHT-SIDED EFFUSION.
[2018-09-20 06:32] LABS: Glucose,Whole Blood 163 mg/dL (75-99)
[2018-09-20] MEDS ORDERED: POTASSIUM BICARBONATE/CIT AC 20 MEQ TABLET.EFF NG-TUBE SCH (07:00)
[2018-09-20] MEDS: BUDESONIDE 1 MG/2 ML NEBU INHALATION SCH ×2 (07:35→19:26)
[2018-09-20] MEDS: FORMOTEROL FUMARATE 20 MCG/2 ML NEBU INHALATION SCH ×2 (07:35→19:26)
[2018-09-20] MEDS: HYDROmorphone 1 MG/ML 1 ML SYRINGE IVP PRN ×3 (07:45→21:45)
[2018-09-20] MEDS: ASPIRIN 81 MG PO SCH (08:03)
[2018-09-20] MEDS: LISINOPRIL 2.5 MG TAB PO SCH ×2 (08:03→20:11)
[2018-09-20] MEDS: METOPROLOL TARTRATE 25 MG TAB PO SCH ×2 (08:03→20:11)
[2018-09-20] MEDS: FUROSEMIDE 10 MG/ML 2 ML VIAL IV SCH ×2 (08:03→20:15)
[2018-09-20] MEDS: CHLORHEXIDINE GLUCONATE 15 ML CUP MUCOUS MEM SCH ×2 (08:03→20:08)
[2018-09-20] MEDS: ENOXAPARIN 40 MG/0.4 ML SYRINGE SQ SCH (08:04)
[2018-09-20] MEDS: FAMOTIDINE 20 MG/2 ML VIAL IV SCH ×2 (08:04→20:04)
[2018-09-20] MEDS: NICOTINE 21MG/24HR PATCH TRANSDERM SCH (08:04)
[2018-09-20] MEDS: CISATRACURIUM 200 MG in SODIUM CHLORIDE 0.9% 180 ML IV SCH ×2 (09:44→23:12)
--- NOTE | 2018-09-20 11:38 | PN ---
PROGRESS NOTE HISTORY: Mr. Dougherty is a 68-year-old gentleman who is followed up for the cardiac evaluation. This patient was admitted with acute respiratory distress primary secondary to underlying severe chronic obstructive pulmonary disease. The patient also has severe cardiomyopathy with a severely impaired left ventricular systolic function. Patient underwent a tracheostomy and PEG tube yesterday. Subsequently patient had developed subcutaneous . The patient remains sedated and sedated and using respiratory. The patient is being maintained in the normal sinus rhythm, heart rate is 65 per minute, blood pressure is 140/60 First and second heart sounds are heard. Lungs reveal bilateral diminished air entry. Abdomen is soft. The patient's creatinine remains stable. IMPRESSION AND PLAN: This patient has been admitted with acute respiratory failure. The patient has a PEG as well as tracheostomy tube. The patient remains stable. Cardiac-espinoza we will continue the current medications end of the. MMODL / IJN: [id number] /
--- NOTE | 2018-09-20 12:16 | CT ---
EXAMINATION TYPE: CT brain wo con DATE OF EXAM: 09/20/2018 COMPARISON: Previous study dated 05/08/2012. HISTORY: LT side facial droop, possible stroke on nimbex CT DLP: 1376.4 mGycm Automated exposure control for dose reduction was used. FINDINGS: There are mild atrophic changes present. Central structures are midline. There is no evidence of hydrocephalus. No acute focal lesion, mass ef fect or midline shift is seen. I do not see evidence of intracranial blood. There is mild mucoperiosteal disease involving both maxillary sinuses as well as the left nasal cavit y as well as the sphenoid sinuses, ethmoid sinuses with relative sparing of the frontal sinus. The [place] calvarium is intact. IMPRESSION: 1. NO ACUTE INTRACRANIAL ABNORMALITY. 2. MILD ATROPHY. 3. SIGNIFICANT SINUS MUCOSAL DISEASE.
--- NOTE | 2018-09-20 12:40 | P.PN ---
Subjective Progress Note Date: 09/20/18 Principal diagnosis: Respiratory failure Progress note dated 09/14/2018 67-year-old male with history of acute on chronic hypoxemic and hypercapnic respiratory failure requiring intubation on September 09 for respiratory failure. The patient also has a history of chronic systolic congestive heart failure. He has a history of chronic tobacco dependence, noncompliance with medications, ischemic cardiomyopathy, with an ejection fraction of 20-25%, a previous history of ventilator dependent respiratory failure, CAD with previous stent placements in the right coronary artery and circumflex coronary artery, nonsustained ventricular tachycardia, DVT, PVOD, status post fem-fem bypass, hypertension, hyperlipidemia, left lower lobe pneumonia, status post bronchoscopy and lavage on 09/13/2018. Today, we'll do a daily interruption of sedation. We will place him on pressure support of 12 and CPAP of 5. Volumes and respiratory rates are good. He may not be ready for extubation. Prior to this, he was on the volume assist control mode rate of 22, tidal volume 500, FiO2 50% and PEEP of 5. Arterial blood gases show a PaO2 of 62, a PaCO2 of 50, and if 7.44. He is on a saline IV at 75 mL now, propofol 65 mics per kilogram per minute, and vital high protein at 35 with a goal of 45 mL an hour. Chest x- ray shows a left lower lobe infiltrate with atelectasis. Current microbiologic studies are negative or pending. He is currently on azithromycin and ceftriaxone. His overall prognosis remains poor given his multitude of medical problems as detailed above. Progress note dated 09/15/2018 67-year-old male with a history of acute on chronic hypoxemic and hypercapnic respiratory failure, requiring intubation and mechanical ventilation on September 09. The patient also has a history of chronic systolic heart failure, chronic tobacco dependence, noncompliance with medications, ischemic cardiomyopathy with an ejection fraction of 20-25%, a previous history of ventilator dependent respiratory failure, coronary artery disease with previous stent placements in the right coronary artery and circumflex coronary artery, nonsustained ventricular tachycardia, DVT, PVOD, status post fem-fem bypass, hypertension, hyperlipidemia, left lower lobe pneumonia, and status post bronchoscopy with BAL on 09/13/2018. Yesterday, we attempted a daily interruption of sedation but he did very poorly. We place him on pressure support of 12 and CPAP of 5. After a few minutes. Place him back on the volume assist control mode. Currently, he is on volume assist control, rate of 22, tidal volume 500, FiO2 50 %, and PEEP of 5. Arterial blood gases show a PaO2 of 66 a PaCO2 of 47 and a pH 7.46. His chest x-ray showed bibasilar infiltrates, left greater than right. He is on propofol at 35 mcg/kg/m, saline IV at 75 mL an hour and vital high protein at 45 with a goal of 45 mL an hour. A consultation has been placed with surgery for possible tracheostomy and PEG tube placement on . Progress note dated 09/16/2018 67-year-old male with a history of acute on chronic hypoxemic and hypercapnic respiratory failure, which required intubation and mechanical ventilation on September 09. The patient also has a history of chronic systolic heart failure, chronic tobacco dependence, noncompliance with medications, ischemic cardiomyopathy with an ejection fraction of 20-25%, a previous history of ventilator dependent respiratory failure, CAD with previous stenting, nonsustained ventricular tachycardia, DVT, PVOD, status post fem-fem bypass, hypertension, hyperlipidemia and left lower lobe pneumonia. The patient is also status post bronchoscopy with BAL on 09/13/2018. The patient's vent settings include the volume assist control mode with a rate of 22, tidal volume 500, FiO2 50%, and PEEP of 5. Arterial blood gases show a PaO2 of 73, a PaCO2 49 and a pH is 7.44. The patient spent 1-1/2 hours on pressure support 8 CPAP of 5 yesterday September 15. His IVs included saline at 75 mL an hour, propofol at 65 mics per kilogram per minute, and vital high protein at 45 with a goal of 45 mL an hour. The patient is scheduled for a tracheostomy and PEG tube tomorrow and I think that should occur. I don't believe he is going to wean anytime soon., Thus far, all microbiologic studies are negative or pending. Laboratory data includes a sodium of 141, potassium 4.2, chlorides 106, and a CO2 of 32. His anion gap is normal, with a BUN of 39 and creatinine of 0.54. Chest x-ray continues to show a infiltrate or atelectasis with a small effusion in the left lower lung, and a relatively clear right lung. Progress note dated 09/17/2018 67-year-old male with a history of acute on chronic hypoxemic and hypercapnic respiratory failure requiring intubation and mechanical ventilation on September 09. Unfortunately, despite daily interruption's of sedation and spontaneous breathing trials, the patient has not been able to be extubated. Today, he will have a tracheostomy and PEG tube placement one of the thoracic surgeons. He's currently on the volume assist control mode with a rate of 22, tidal volume 500, FiO2 50%, and a PEEP of 5. Arterial blood gases show a PaO2 of 70, a PaCO2 of 47 and a pH of 7.46. He is getting saline at 75 mL an hour propofol 60 mikes per kilogram per minute and tube feeds are on hold. Chest x-ray continues to show a left lower lobe pneumonia. Microbiologic studies are thus far negative. There was some yeast in his bronchial washings likely a contaminant. He remains on Rocephin and Zithromax as antibiotic coverage. White count 11.3, hemoglobin 13.3, hematocrit 41.9 and platelet count 131,000. Sodium 139, potassium 4.1, chlorides 106, CO2 31, anion gap is normal, BUN 37 and creatinine 0.57. Medications are reviewed. The patient's past medical history is quite extensive and includes among other things, chronic systolic heart failure, chronic tobacco dependence, noncompliance with medications, ischemic cardiomyopathy, ejection fraction 20-25%, a previous history of ventilator dependent respiratory failure, CAD with previous stenting, nonsustained ventricular tachycardia, DVT, PVO D, some/femoral bypass, hypertension, hyperlipidemia, and the pneumonia. Progress note dated 09/18/2018 67-year-old male with history of acute on chronic hypoxemic and hypercapnic respiratory failure requiring intubation and mechanical ventilation on September 09. The patient was not able to be weaned and extubated and underwent a tracheostomy and PEG tube placement done yesterday. Currently, he is on the volume assist control mode with a rate of 22, tidal volume 500, FiO2 90% and PEEP of 8. Arterial blood gases show a PaO2 of 68, a PaCO2 of 51 and a pH of 7.45. The patient's on saline IV at 75 mL an hour, propofol 75 mics per kilogram per minute, and Nimbex at 2 mics per kilogram per minute with a peripheral nerve stimulator. Today, the surgeon who did a tracheostomy was going to live down the tube with a proctoscope to make sure everything is in good order. Unfortunately, the patient is also developed massive subcutaneous emphysema. He also has pneumomediastinum. I do not see a pneumothorax. The patient has a history of chronic systolic heart failure, chronic tobacco dependence, noncompliance with medications, ischemic cardiomyopathy with an ejection fraction of about 20-25%, a previous history of ventilator dependent respiratory failure, CAD with previous stenting, nonsustained ventricular tachycardia, DVT, P VOD, status post fem-fem bypass, hypertension, hyperlipidemia, and left lower lobe pneumonia. The patient underwent bronchoscopy with BAL on September 13. Microbiology is all negative thus far. White count is 14.2, hemoglobin 14 hematocrit 44.4 and platelet count was 136, 000. Sodium potassium and chloride are all normal. CO2 is 31, anion gap is normal, and BUN is 42 with a creatinine of 0.59. Chest x-ray shows extensive subcutaneous emphysema and pneumomediastinum. Progress note dated 09/19/2018 67-year-old male with a history of acute on chronic hypoxemic and hypercapnic respiratory failure, which required intubation and mechanical ventilation on September 09. The patient was not been successfully weaned and therefore underwent a tracheostomy and PEG tube placement on September 17. Unfortunately, the patient developed severe subcutaneous emphysema and pneumomediastinum. He remains on the ventilator, sedated and paralyzed. Currently, he is on the volume assist control mode, rate 22, tidal volume 500, FiO2 90% and PEEP of 8. Arterial blood gases show a PaO2 of 78, a pCO2 of 53 and a pH of 7.42. His saline IV is running at 75 mL an hour, propofol 60 mics per kilogram per minute , Nimbex at 2 mics per kilogram per minute, and vital high protein at 45 with a goal of 45 mL an hour. Microbiologic studies are negative. Chest x-ray shows some bibasilar infiltrates. I spoke to the thoracic surgeon today who is happy with the patient's progress. He would like to patient's sedated and paralyzed for 1 more day at least. Today's chest x-ray shows significantly improved subcutaneous emphysema. He still does have some subcutaneous emphysema but not near as much. The patient's overall prognosis remains very guarded. He likely will be a candidate for specialized nursing facility down the road. White count 14.3, hemoglobin 13.9, hematocrit 44.4 and platelet count 147,000. Sodium potassium chloride all normal. CO2 31. Anion gap is 4. BUN is 45 with creatinine 0.52. Progress note dated 09/20/2018 This is a 67-year-old male with a history of acute on chronic hypoxemic and hypercapnic respiratory failure. The patient required intubation and mechanical ventilation on September 09. The patient had a PEG tube placement in tracheostomy tube done on September 17. Unfortunately, after the procedure, he developed severe and massive subcutaneous emphysema and pneumomediastinum. That has improved. The last 2 days, we kept him sedated and paralyzed. Today he goes down for a CAT scan of the head given the fact that it appears that he' s developed some facial also, last night, because his sedation wasn't appropriate nor was his paralysis, he developed worsening hypoxemic respiratory failure and required 100% oxygen in an increase of the PEEP. Chest x-ray still shows bibasilar infiltrates and microbiologic studies remain negative. He's currently on saline at 75 mL an hour, propofol at 65 mics per kilogram per minute, Nimbex at 3 mics per kilogram per minute and peripheral nerve stimulator and vital AF with a rate of 45 and a goal of 45 mL an hour. Currently, he is on the volume assist control mode , with a rate of 22, tidal volume 500, FiO2 100%, and PEEP of 15. On those settings, his pO2 was 75, pCO2 57 and pH 7.36. Head CT was negative. Chest X-ray shows bibasilar airspace disease and right-sided pleural effusion. Microbiologic studies remain negative. White count is 18.8, hemoglobin 14, hematocrit 45.5 and platelet count 145,000. Sodium 140, potassium 3.9, chlorides 107, CO2 31, 146 with a creatinine of 0.45. Anion gap is normal. Objective - Vital Signs Vital signs: Vital Signs Temp 97.6 F 09/20/18 08:00 Pulse 68 09/20/18 12:26 Resp 22 09/20/18 11:00 BP 138/67 09/16/18 07:00 Pulse Ox 98 09/20/18 11:00 Intake & Output 09/19/18 09/20/18 09/20/18 18:59 06:59 18:59 Intake Total 2026.776 4521.340 916.741 Output Total 1190 1210 710 Balance 237.909 6186.340 206.741 Weight 91 kg Intake: IV 1036 3111 390 Azithromycin 500 mg In 250 Sodium Chloride 0.9% 250 ml @ 250 mls/hr IVPB Q24H [facility] Rx#:[id number] Pressure bag of 0.9 NaCl- 36 36 15 Sodium Chloride 0.9% 1, 900 825 375 000 ml @ 75 mls/hr IV . [id number] [facility] Rx#:[id number] Sodium Chloride 0.9% 2, 2000 000 ml @ 999 mls/hr IV . Q2H1M [facility] Rx#:[id number] cefTRIAXone 2,000 mg In 100 Sodium Chloride 0.9% 100 ml @ 100 mls/hr IVPB Q24H [facility] Rx#:[id number] Intake, IV Titration 180.776 645.340 226.741 Amount Cisatracurium 200 mg In 324.984 70.504 Sodium Chloride 0.9% 180 ml @ 2 MCG/KG/MIN 10.68 mls/hr IV .[id number] [facility] Rx #:[id number] Propofol 1,000 mg In 180.776 320.356 156.237 Empty Bag 1 bag @ Titrate IV .Q0M [facility] Rx#: [id number] Tube Feeding 720 675 270 Other 90 90 30 Output: Urine 1190 1210 710 Other: Voiding Method Indwelling Catheter Indwelling Catheter ABP, PAP, CO, CI - Last Documented Arterial Blood Pressure 109/56 - Exam No acute distress, sedated and paralyzed, with a tracheostomy tube and PEG tube in place. HEENT examination is grossly unremarkable. Mucous membranes are moist. Neck supple. Full range of motion. No adenopathy thyromegaly or neck vein distention. Cardiovascular examination reveals regular rhythm rate. S1-S2 normal. No S3 or S4. No discernible murmur noted. Heart sounds are distant. Heart rate is 90 bpm and regular. Lungs reveal coarse diffuse bilateral inspiratory and expiratory rhonchi and wheezes. No crackles are noted. Breath sounds equal bilaterally. Breath sounds are bit more closely than yesterday's exam. Subcutaneous emphysema is much improved. Abdomen soft and bowel sounds are heard. No masses or tenderness. PEG tube noted. Extremities are intact. No cyanosis clubbing or edema. Skin is without rash or lesion. Neurologic examination is very difficult to assess given the fact that he is on propofol at 60 mcg/kg/m and Nimbex at 2 mics per kilogram per minute. - Labs CBC & Chem 7: 09/20/18 04:50 09/20/18 04:56 Labs: Abnormal Lab Results - Last 24 Hours (Table) 09/19/18 09/19/18 09/19/18 Range/Units 18:16 20:50 20:59 WBC 12.9 H (3.8-10.6) k/uL RBC 4.24 L (4.30-5.90) m/uL MCV 102.6 H (80.0-100.0) fL MCHC 30.8 L (31.0-37.0) g/dL Plt Count 146 L (150-450) k/uL Neutrophils # (1.3-7.7) k/uL Lymphocytes # (1.0-4.8) k/uL ABG pH 7.51 H (7.35-7.45) ABG pCO2 (35-45) mmHg ABG pO2 42 L* (83-108) mmHg ABG HCO3 35 H (21-25) mmol/L ABG Total CO2 36 H (19-24) mmol/L ABG O2 Saturation 79.0 L (94-97) % Carbon Dioxide (22-30) mmol/L BUN (9-20) mg/dL Creatinine (0.66-1.25) mg/dL Glucose (74-99) mg/dL POC Glucose (mg/dL) 130 H (75-99) mg/dL Calcium (8.4-10.2) mg/dL 09/19/18 09/19/18 09/20/18 Range/Units 20:59 23:32 04:50 WBC 18.8 H (3.8-10.6) k/uL RBC (4.30-5.90) m/uL MCV 103.2 H (80.0-100.0) fL MCHC 30.7 L (31.0-37.0) g/dL Plt Count 145 L (150-450) k/uL Neutrophils # 17.6 H (1.3-7.7) k/uL Lymphocytes # 0.4 L (1.0-4.8) k/uL ABG pH (7.35-7.45) ABG pCO2 (35-45) mmHg ABG pO2 (83-108) mmHg ABG HCO3 (21-25) mmol/L ABG Total CO2 (19-24) mmol/L ABG O2 Saturation (94-97) % Carbon Dioxide 32 H (22-30) mmol/L BUN 45 H (9-20) mg/dL Creatinine 0.48 L (0.66-1.25) mg/dL Glucose 170 H (74-99) mg/dL POC Glucose (mg/dL) 134 H (75-99) mg/dL Calcium 8.2 L (8.4-10.2) mg/dL 09/20/18 09/20/18 09/20/18 Range/Units 04:56 05:22 06:31 WBC (3.8-10.6) k/uL RBC (4.30-5.90) m/uL MCV (80.0-100.0) fL MCHC (31.0-37.0) g/dL Plt Count (150-450) k/uL Neutrophils # (1.3-7.7) k/uL Lymphocytes # (1.0-4.8) k/uL ABG pH (7.35-7.45) ABG pCO2 57 H (35-45) mmHg ABG pO2 75 L (83-108) mmHg ABG HCO3 32 H (21-25) mmol/L ABG Total CO2 (19-24) mmol/L ABG O2 Saturation 92.0 L (94-97) % Carbon Dioxide 31 H (22-30) mmol/L BUN 46 H (9-20) mg/dL Creatinine 0.45 L (0.66-1.25) mg/dL Glucose 178 H (74-99) mg/dL POC Glucose (mg/dL) 163 H (75-99) mg/dL Calcium 8.3 L (8.4-10.2) mg/dL Assessment and Plan Assessment: Assessment Acute hypoxemic and hypercapnic respiratory failure, secondary to severe COPD exacerbation and chronic systolic CHF exacerbation, requiring intubation and mechanical ventilation on September 09 Status post bronchoscopy for sampling of the lower respiratory tract and removal of airway secretions on September 13. Status post tracheostomy and PEG tube placement on 09/17/2018. Massive subcutaneous emphysema and pneumomediastinum Severe end-stage COPD History of chronic and ongoing tobacco dependence Severe ischemic cardiomyopathy with ejection fraction of 20-25% History of noncompliance with medications and follow-ups Previous history of respiratory failure with ventilator dependence Coronary artery disease, status post stent placements in the right coronary artery and circumflex coronary artery History of nonsustained ventricular tachycardia History of DVT Status post fem-fem bypass for peripheral vascular disease History of essential hypertension History of hyperlipidemia Probable left lower lobe pneumonia Plan: Plan dated 09/14/2018 The patient remains on mechanical ventilator. We switch him from the volume assist control mode to the pressure support mode. He is on PSV 12 and CPAP of 5. He remains on 50%. He remains on tube feeds. Microbiology is currently either negative or pending. White count 10.4, hemoglobin 13.8, hematocrit 44.3 , and platelet count 125,000. Sodium potassium chloride are all normal. CO2 is 33. BUN is 35 with a creatinine 0.56. His medications are reviewed. Remains on albuterol and Atrovent updrafts every 4 hours around the clock as well as Pulmicort 1 mg and formoterol 20 g. Is getting all the other usual medications. His prognosis is poor. He apparently only tolerated pressure support for about 12 minutes. He was placed back on the volume assist control mode and be sedated. A consultation will be given to the surgeon for possible tracheostomy and PEG tube placement. Prognosis is very poor. Critical care time 35 minutes Plan dated 09/15/2018 Again, we will attempt a daily eruption of sedation with a pressure support of 5 and CPAP of 5. We have put a consultation in the surgery for possible tracheostomy and PEG tube placement to be done on . His chest x-ray shows evidence of bibasal pneumonia, left greater than right. Microbiology is negative. White count 10.5, hemoglobin 13.8, hematocrit 43 and platelet count 132,000. Sodium and potassium and chloride are all normal. CO2 is 32. Anion gap is normal. BUN is 37 with a creatinine 0.60. The patient's medications are reviewed. He remains on DuoNeb nebs every 4 hours around the clock, Rocephin, azithromycin, Pulmicort updrafts mixed with formoterol, and Solu- Medrol. His overall prognosis is poor. The patient has not really taken very good care of himself. We will continue supportive care. Possible tracheostomy and PEG tube placement on . Critical care time 36 minutes Plan dated 09/16/2018 Today, we will do a daily interruption of sedation as we always do in these intubated patient's and assess the patient for a spontaneous breathing trial. Having said that, the patient has not done well previously on his spontaneous breathing trials. Nonetheless, we'll try again today. He is scheduled for tracheostomy and PEG tube tomorrow with one of the surgeons. I think that's appropriate. His labs and x-rays are reviewed. His chest x-ray continues to show a infiltrate/atelectasis and small effusion at the left lung base. Microbiology is as far negative. His medications are reviewed and are appropriate. Prognosis is guarded. We'll continue support with all the current treatments. Critical care time 33 minutes Plan dated 09/17/2018 The patient will likely have a tracheostomy and PEG tube placed today. As needed as he has failed his previous spontaneous breathing trials. He has a number different medical problems as delineated above. Arterial blood gases are reasonable. Tube feeds are on hold in anticipation of the procedure today. We will likely have to select specialty evaluate the patient for possible placement. His overall prognosis is poor. We will continue to follow. Medications labs are reviewed. Remains on azithromycin and ceftriaxone for his antibiotics. His microbiologic studies are negative. Bronchial washes are negative. Critical care time 34 minutes Plan dated 09/18/2018 The patient continued with massive subcutaneous emphysema and pneumomediastinum. The surgeon to do a bronchoscopy today to check the placement of the tracheostomy tube. Apparently everything seems to be okay. He remains on propofol and Nimbex for sedation and paralysis. Labs x-rays a medications are all reviewed. Microbiologic studies are negative. He remains on Zithromax and ceftriaxone. Hopefully, he will be stable enough to eventually be transferred to a specialized nursing facility. Prognosis is very guarded and he is very critically ill. Critical care time 37 minutes Plan dated 09/19/2018 The patient subcutaneous emphysema is much improved. The patient's chest x-ray is much improved. The patient will remain sedated and paralyzed for another 24 hours. I did speak to the thoracic surgeon. Microbiologic studies are thus far negative. Her laboratory data x-rays a medications are all reviewed. Everything seems to be relatively appropriate. He remains on Zithromax and ceftriaxone even though his culture data is negative. He did have a bronchoscopy by my partner early on in his hospital course and although samplings are negative. Prognosis is very guarded. I suspect eventual transfer and discharge to a specialized nursing facility for long-term ventilator management. Critical care time 38 minutes Plan dated 09/20/2018 The patient's subcutaneous emphysema is much improved. Chest x-ray continues to show bibasilar infiltrates. Last night, because of improper sedation and paralysis, the patient developed worsening hypoxemia and required 100% oxygen and increasing PEEP. Currently, he is well sedated improperly paralyzed with peripheral nerve stimulator monitoring. Microbiologic studies are thus far negative. When he wasn't paralyzed last night, it was noted that he might have a facial droop on the left and a computed tomography scan was done today but was negative. He remains on Zithromax and ceftriaxone empirically. We will continue to follow closely. Prognosis is guarded. The patient is likely headed to a specialized nursing facility. We can likely take him off paralysis tomorrow. Critical care time 36 minutes Time with Patient: Greater than 30
[2018-09-20 12:58] LABS: Glucose,Whole Blood 174 mg/dL (75-99)
[2018-09-20] MEDS: SODIUM CHLORIDE 0.9% 1,000 ML IV SCH (13:02)
--- NOTE | 2018-09-20 13:22 | P.PN ---
Subjective On-call hospitalist covering Dr. Negron starting 09/16/2018 This is a 67 years old male with past medical history of coronary artery disease , congestive heart failure, COPD, DVT, GERD, hyperlipidemia, hypertension, myocardial infarction, who presents because of severe dyspnea and hypoxia needed intubation. Patient remains intubated in the ICU and cannot provide to his history which was obtained from the staff and medical records. Aspirate was patient also have ischemic cardiomyopathy with ejection fraction of 20-25%. Critical care team are following the patient. Patient is planned for EGD and PEG tube tomorrow already. Patient denied the fluids and propofol. Labs showing mild leukocytosis of 11.1 K, mild low platelets at 128. Sodium 141, potassium 4.2, creatinine 0.5, 09/17/18 pt remains as yesterday when i first saw him , he is intubated and failed breathing trials. pt is for tracheostomy and PEG tube placement today. 09/18/2018 Patient is status post tracheostomy and PEG tube yesterday. However the procedure was complicated by subcutaneous emphysema patient looks perfectly today, however he remains unresponsive. Vitas looks stable and patient is afebrile. Blood pressure 134/57. Labs shows WBC of 14.2 patient remains on Solu-Medrol. Cardiology and skull care input is appreciated. No active cardiac disease is present. Patient with ischemic cardiomyopathy with ejection fraction of 20-25%. Prognosis remains poor. 09/19/2018 Patient status post tracheostomy and PEG tube. He has subcutaneous emphysema however is improving significantly today. he remains unresponsive and sedated. critical care team are following the pt closely while in ICU with vent mx 09/20/2018 Patient is seen and examined in the ICU, he still sedated and unresponsive. Last night patient has been hypoxic and hypotensive and his been resuscitated with oxygen, breathing treatment and chemotherapy. Patient oxygen saturation is better today at 94% on 100% FiO2, blood pressure 120/64 and heart rate 70. Patient was noticed to have left facial droop and CAT scan of the head is requested for risk of stroke Review of systems: N/a Medication:- albuterol 0.5 mg, ipratropium 3 mg, aspirin 81 mg Lipitor 40 mg, Zithromax 500 mg, Pulmicort 1 mg, ceftriaxone 2000 mg, chlorhexidine 15 mL, Lovenox 40 mg, Pepcid 20 mg, Lasix 20 mg, NovoLog sliding scale, Zestril 2.5 mg , Solu-Medrol 60 mg, Lopressor 25 mg, nicotine 21 mg, propofol 1000 mg, Requip 2 mg, chest x-ray shows extensive subcutaneous in erythema and with the resolution of the pulmonary infiltrate. And her cervical exam remains stable. Objective - Vital Signs Vital signs: Vital Signs Temp 97.8 F 09/20/18 12:00 Pulse 70 09/20/18 13:00 Resp 22 09/20/18 13:00 BP 138/67 09/16/18 07:00 Pulse Ox 92 L 09/20/18 13:00 Intake & Output 09/19/18 09/20/18 09/20/18 18:59 06:59 18:59 Intake Total 2026.776 4521.340 1282.741 Output Total 1190 1210 790 Balance 834.033 2772.340 492.741 Weight 91 kg Intake: IV 1036 3111 546 Azithromycin 500 mg In 250 Sodium Chloride 0.9% 250 ml @ 250 mls/hr IVPB Q24H [facility] Rx#:[id number] Pressure bag of 0.9 NaCl- 36 36 21 Sodium Chloride 0.9% 1, 900 825 525 000 ml @ 75 mls/hr IV . [id number] [facility] Rx#:[id number] Sodium Chloride 0.9% 2, 2000 000 ml @ 999 mls/hr IV . Q2H1M [facility] Rx#:[id number] cefTRIAXone 2,000 mg In 100 Sodium Chloride 0.9% 100 ml @ 100 mls/hr IVPB Q24H [facility] Rx#:[id number] Intake, IV Titration 180.776 645.340 226.741 Amount Cisatracurium 200 mg In 324.984 70.504 Sodium Chloride 0.9% 180 ml @ 2 MCG/KG/MIN 10.68 mls/hr IV .[id number] [facility] Rx #:[id number] Propofol 1,000 mg In 180.776 320.356 156.237 Empty Bag 1 bag @ Titrate IV .Q0M [facility] Rx#: [id number] Tube Feeding 720 675 450 Other 90 90 60 Output: Urine 1190 1210 790 Other: Voiding Method Indwelling Catheter Indwelling Catheter # Bowel Movements 1 ABP, PAP, CO, CI - Last Documented Arterial Blood Pressure 120/64 - Exam GENERAL: Patient is intubated HEENT: Pupils are round and equally reacting to light. EOMI. No scleral icterus. No conjunctival pallor. Normocephalic, atraumatic. No pharyngeal erythema. No thyromegaly. CARDIOVASCULAR: S1 and S2 present. No murmurs, rubs, or gallops. PULMONARY: Chest is clear to auscultation, no wheezing or crackles. ABDOMEN: Soft, nontender, nondistended, normoactive bowel sounds. No palpable organomegaly. MUSCULOSKELETAL: No joint swelling or deformity. EXTREMITIES: No cyanosis, clubbing, or pedal edema. NEUROLOGICAL: Gross neurological examination did not reveal any focal deficits. SKIN: No rashes. - Labs CBC & Chem 7: 09/20/18 04:50 09/20/18 04:56 Labs: Abnormal Lab Results - Last 24 Hours (Table) 09/19/18 09/19/18 09/19/18 Range/Units 18:16 20:50 20:59 WBC 12.9 H (3.8-10.6) k/uL RBC 4.24 L (4.30-5.90) m/uL MCV 102.6 H (80.0-100.0) fL MCHC 30.8 L (31.0-37.0) g/dL Plt Count 146 L (150-450) k/uL Neutrophils # (1.3-7.7) k/uL Lymphocytes # (1.0-4.8) k/uL ABG pH 7.51 H (7.35-7.45) ABG pCO2 (35-45) mmHg ABG pO2 42 L* (83-108) mmHg ABG HCO3 35 H (21-25) mmol/L ABG Total CO2 36 H (19-24) mmol/L ABG O2 Saturation 79.0 L (94-97) % Carbon Dioxide (22-30) mmol/L BUN (9-20) mg/dL Creatinine (0.66-1.25) mg/dL Glucose (74-99) mg/dL POC Glucose (mg/dL) 130 H (75-99) mg/dL Calcium (8.4-10.2) mg/dL 09/19/18 09/19/18 09/20/18 Range/Units 20:59 23:32 04:50 WBC 18.8 H (3.8-10.6) k/uL RBC (4.30-5.90) m/uL MCV 103.2 H (80.0-100.0) fL MCHC 30.7 L (31.0-37.0) g/dL Plt Count 145 L (150-450) k/uL Neutrophils # 17.6 H (1.3-7.7) k/uL Lymphocytes # 0.4 L (1.0-4.8) k/uL ABG pH (7.35-7.45) ABG pCO2 (35-45) mmHg ABG pO2 (83-108) mmHg ABG HCO3 (21-25) mmol/L ABG Total CO2 (19-24) mmol/L ABG O2 Saturation (94-97) % Carbon Dioxide 32 H (22-30) mmol/L BUN 45 H (9-20) mg/dL Creatinine 0.48 L (0.66-1.25) mg/dL Glucose 170 H (74-99) mg/dL POC Glucose (mg/dL) 134 H (75-99) mg/dL Calcium 8.2 L (8.4-10.2) mg/dL 09/20/18 09/20/18 09/20/18 Range/Units 04:56 05:22 06:31 WBC (3.8-10.6) k/uL RBC (4.30-5.90) m/uL MCV (80.0-100.0) fL MCHC (31.0-37.0) g/dL Plt Count (150-450) k/uL Neutrophils # (1.3-7.7) k/uL Lymphocytes # (1.0-4.8) k/uL ABG pH (7.35-7.45) ABG pCO2 57 H (35-45) mmHg ABG pO2 75 L (83-108) mmHg ABG HCO3 32 H (21-25) mmol/L ABG Total CO2 (19-24) mmol/L ABG O2 Saturation 92.0 L (94-97) % Carbon Dioxide 31 H (22-30) mmol/L BUN 46 H (9-20) mg/dL Creatinine 0.45 L (0.66-1.25) mg/dL Glucose 178 H (74-99) mg/dL POC Glucose (mg/dL) 163 H (75-99) mg/dL Calcium 8.3 L (8.4-10.2) mg/dL 09/20/18 Range/Units 12:55 WBC (3.8-10.6) k/uL RBC (4.30-5.90) m/uL MCV (80.0-100.0) fL MCHC (31.0-37.0) g/dL Plt Count (150-450) k/uL Neutrophils # (1.3-7.7) k/uL Lymphocytes # (1.0-4.8) k/uL ABG pH (7.35-7.45) ABG pCO2 (35-45) mmHg ABG pO2 (83-108) mmHg ABG HCO3 (21-25) mmol/L ABG Total CO2 (19-24) mmol/L ABG O2 Saturation (94-97) % Carbon Dioxide (22-30) mmol/L BUN (9-20) mg/dL Creatinine (0.66-1.25) mg/dL Glucose (74-99) mg/dL POC Glucose (mg/dL) 174 H (75-99) mg/dL Calcium (8.4-10.2) mg/dL Microbiology - Last 24 Hours (Table) 09/13/18 09:48 Fungal Culture - Preliminary Bronchoalviolar Lavage - Left Amy glabrata Assessment and Plan Assessment: Acute hypoxemic, hypercapnic respiratory failure secondary to severe COPD exacerbation and acute on chronic systolic CHF exacerbation. Patient is status post intubation on mechanical ventilation End stage COPD, as per the pulmonary team Left facial droop Subcutaneous emphysema Patient status post tracheostomy and PEG tube placement Ischemic cardiomyopathy with ejection fraction of 20-25% History of nicotine dependence History of coronary artery disease, status post stenting History of nonsustained ventricular tachycardia History of DVT Peripheral vascular disease Essential hypertension Hyperlipidemia Possible left lower lobe pneumonia Plan: This is a 67 years old male who presents with severe COPD requiring intubation, with possible pneumonia and CHF. Critical team/pulmonary team are following the patient. Patient is currently intubated in the ICU. Patient will benefit from Peg//tracheostomy.Labs and medication were resumed. Continue same treatment. Continue with symptomatic treatment. Resume home medication. Monitor lytes and vitals. DVT and GI prophylaxis. Further recommendationsof the clinical course of the patient DVT prophylaxis: Subcutaneous Lovenox GI Prophylaxis: Pepcid Prognosis is guarded and poor
[2018-09-20] MEDS: cefTRIAXone 2,000 MG in SODIUM CHLORIDE 0.9% 100 ML IVPB SCH (15:09)
[2018-09-20] MEDS: AZITHROMYCIN 500 MG in SODIUM CHLORIDE 0.9% 250 ML IVPB SCH (17:03)
[2018-09-20 18:03] LABS: Glucose,Whole Blood 166 mg/dL (75-99)
[2018-09-20] MEDS: ATORVASTATIN 20 MG TAB PO SCH (20:11)
[2018-09-21] MEDS: IPRATROPIUM-ALBUTEROL 3 ML NEB INHALATION SCH ×7 (00:18→23:25)
[2018-09-21] MEDS: methylPREDNISolone SOD SUCCI 125 MG/2 ML VIAL IV SCH ×4 (00:35→17:45)
[2018-09-21 00:48] LABS: Glucose,Whole Blood 154 mg/dL (75-99)
[2018-09-21] MEDS: INSULIN ASPART 100 UNIT/ML 1 ML 10 ML VIAL SQ SCH ×4 (00:49→17:40)
[2018-09-21] MEDS: PROPOFOL 1,000 MG in EMPTY BAG 1 BAG IV SCH ×5 (02:08→20:02)
[2018-09-21] MEDS: SODIUM CHLORIDE 0.9% 1,000 ML IV SCH ×2 (02:38→11:09)
[2018-09-21] MEDS: ARTIFICIAL TEARS-HYPROMELLOSE DROPS 15 ML BTL BOTH EYES SCH ×5 (03:47→20:06)
[2018-09-21 04:50] LABS: Basophils % (A) 0 %; Eosinophils # (A) 0.1 k/uL (0-0.7); Eosinophils % (A) 0 %; HCT 43.9 % (39.0-53.0); HGB 13.6 gm/dL (13.0-17.5); Lymphocytes # (A) 0.3 k/uL (1.0-4.8); Lymphocytes % (A) 2 %; MCH 32.1 pg (25.0-35.0); MCHC 31.1 g/dL (31.0-37.0); MCV 103.2 fL (80.0-100.0); Macrocytosis Slight; Mean Platelet Volume 8.5; Monocytes # (A) 0.5 k/uL (0-1.0); Monocytes % (A) 3 %; Neutrophils # (A) 16.3 k/uL (1.3-7.7); Neutrophils % (A) 95 %; Platelet Count 129 k/uL (150-450); RBC 4.26 m/uL (4.30-5.90); RDW 13.1 % (11.5-15.5); WBC 17.2 k/uL (3.8-10.6)
[2018-09-21 04:59] LABS: Anion Gap 2 mmol/L; Blood Urea Nitrogen 49 mg/dL (9-20); Calcium 8.5 mg/dL (8.4-10.2); Carbon Dioxide 32 mmol/L (22-30); Chloride 107 mmol/L (98-107); Glucose 174 mg/dL (74-99); Magnesium 2.5 mg/dL (1.6-2.3); Phosphorus 3.7 mg/dL (2.5-4.5); Potassium 4.1 mmol/L (3.5-5.1); Sodium 141 mmol/L (137-145)
[2018-09-21 05:52] LABS: Glucose,Whole Blood 169 mg/dL (75-99)
[2018-09-21 05:57] LABS: ABG Base Excess 5.5 mmol/L; ABG HCO3 32 mmol/L (21-25); ABG PCO2 56 mmHg (35-45); ABG PH 7.37 (7.35-7.45); ABG PO2 74 mmHg (83-108)
--- NOTE | 2018-09-21 07:22 | XR ---
EXAMINATION TYPE: XR chest 1V portable DATE OF EXAM: 09/21/2018 COMPARISON: Prior chest x-ray 09/20/2018 HISTORY: Tracheostomy tube placement, subcutaneous emphysema, abnormal chest x-ray TECHNIQUE: frontal view of the chest is obtained on 2 images. FINDINGS: Tracheostomy tube is overlying the tracheal air column. No evident pneumothorax. Heart siz e is stable, there are overlying cardiac leads. Bibasilar increased density is noted, the hemidiaphra gms are obscured. IMPRESSION: There may be basilar effusions and associated atelectasis versus edema or pneumonia, cor relate. Follow-up recommended.
[2018-09-21] MEDS: FORMOTEROL FUMARATE 20 MCG/2 ML NEBU INHALATION SCH ×2 (07:41→19:35)
[2018-09-21] MEDS: BUDESONIDE 1 MG/2 ML NEBU INHALATION SCH ×2 (07:41→19:35)
[2018-09-21] MEDS: CISATRACURIUM 200 MG in SODIUM CHLORIDE 0.9% 180 ML IV SCH (08:00)
[2018-09-21] MEDS: ASPIRIN 81 MG PO SCH (08:50)
[2018-09-21] MEDS: LISINOPRIL 2.5 MG TAB PO SCH ×2 (08:51→20:19)
[2018-09-21] MEDS: METOPROLOL TARTRATE 25 MG TAB PO SCH ×2 (08:51→20:19)
[2018-09-21] MEDS: FAMOTIDINE 20 MG/2 ML VIAL IV SCH ×2 (09:03→20:28)
[2018-09-21] MEDS: CHLORHEXIDINE GLUCONATE 15 ML CUP MUCOUS MEM SCH ×2 (09:03→20:08)
[2018-09-21] MEDS: FUROSEMIDE 10 MG/ML 2 ML VIAL IV SCH (09:03)
[2018-09-21] MEDS: ENOXAPARIN 40 MG/0.4 ML SYRINGE SQ SCH (09:03)
[2018-09-21] MEDS: NICOTINE 21MG/24HR PATCH TRANSDERM SCH (09:13)
--- NOTE | 2018-09-21 11:51 | P.PN ---
Subjective Progress Note Date: 09/21/18 77-year-old male patient, advanced COPD, chronic smoker, known history of coronary artery disease and ischemic artery myopathy with an ejection fraction of 20-25%, previous history of ventilator dependent respiratory failure, previous history of coronary artery disease with previous stent insertion in the RCA and circumflex vessels, previous history of nonsustained V. tach, DVT, peripheral vascular disease with previous fem-fem bypass surgery, hypertension and hyperlipidemia, who is currently in the intensive care unit intubated on a mechanical ventilator. The patient was admitted again to the hospital because of acute respiratory failure and he was admitted on 09/10/2018. He failed to wean and subsequently he underwent a tracheostomy and a PEG tube insertion. The patient's course was complicated by development of a air leak for which she was followed up by Dr. Baptiste and the patient underwent a blood patch. During the course of his treatment, the patient developed massive subcutaneous emphysema and pneumomediastinum without pneumothorax. This was managed conservatively. This morning, the patient is sedated and paralyzed. I have him on a assist- control mode of ventilation with a tidal volume of 500, FiO2 of 100%, PEEP of 15 and the respiratory rate of 22. Morning blood gases showed a pH of 7.37 with a pCO2 of 56 and pO2 of 74. His peak airway pressure was around 38. He static pressure is 26. Chest x-ray shows hyperinflation and there is lower lobe haziness bilaterally more so on the right and there is no evidence of any pneumothorax. The patient has diminished breath sounds bilaterally. Breath sounds are equal and symmetrical and there is no significant bronchospasm and wheezing. As mentioned, his foot is sedated and Diprivan is running at 70 mics per KG per minute and the patient is also paralyzed with Nimbex. He is on IV fluids at 75 mL an hour of normal saline and the patient was receiving also Lasix 20 mg IV push every 12 hours. He is afebrile. He is on accommodation Rocephin and Zithromax and his been on the same antibiotic coverage for the past 1 week at least. No positive cultures have been obtained during this current hospitalization. White cell count is at 17.2. His cardiac rhythm is sinus. No significant arrhythmias have been noted. Rest of the blood work including the electrodes and the renal function are all within normal limits. He remains on bronchodilators with DuoNeb nebulized treatment [id number], he is on IV Solu-Medrol 60 mg every 6 hours. He is also on a combination of Perforomist and Pulmicort neb last treatment twice a day. Rest of the medication were all reviewed. He is receiving enteral feeding via PEG tube and the exit site is clean and the patient is able to tolerate the tube feeds without any major difficulties and he is currently at goal at 45 mL an hour of vital high protein. He has an adequate urine output is producing approximately 50-60 an hour. Nevertheless, his net fluid balance has been persistent positive being 1.6 L positive on 09/18/2018, 1 L positive on 09/19/2018, 4 L positive on 09/20/2018 and another 2.4 L positive since earlier this morning. I noticed that the patient is at least 3 kg heavier in weight compared to 2017. Objective - Vital Signs Vital signs: Vital Signs Temp 98.6 F 09/21/18 08:00 Pulse 82 09/21/18 11:28 Resp 22 09/21/18 11:00 BP 138/67 09/16/18 07:00 Pulse Ox 97 09/21/18 11:00 Intake & Output 09/20/18 09/21/18 09/21/18 18:59 06:59 18:59 Intake Total 2389.117 2294.002 634 Output Total 1155 1060 465 Balance 0540.590 1625.002 169 Weight 92.9 kg 92.9 kg Intake: IV 1286 936 309 Azithromycin 500 mg In 250 Sodium Chloride 0.9% 250 ml @ 250 mls/hr IVPB Q24H [facility] Rx#:[id number] Pressure bag of 0.9 NaCl- 36 36 9 Sodium Chloride 0.9% 1, 900 900 300 000 ml @ 75 mls/hr IV . [id number] [facility] Rx#:[id number] cefTRIAXone 2,000 mg In 100 Sodium Chloride 0.9% 100 ml @ 100 mls/hr IVPB Q24H [facility] Rx#:[id number] Intake, IV Titration 248.117 593.002 100 Amount Cisatracurium 200 mg In 70.504 200 Sodium Chloride 0.9% 180 ml @ 2 MCG/KG/MIN 10.68 mls/hr IV .[id number] [facility] Rx #:[id number] Propofol 1,000 mg In 177.613 393.002 100 Empty Bag 1 bag @ Titrate IV .Q0M COUNTS INCLUDE 234 BEDS AT [facility] Rx#: [id number] Tube Feeding 765 675 225 Other 90 90 Output: Urine 1155 1060 465 Other: Voiding Method Indwelling Catheter Indwelling Catheter Indwelling Catheter # Bowel Movements 1 ABP, PAP, CO, CI - Last Documented Arterial Blood Pressure 123/53 - Exam No acute distress, sedated and paralyzed, with a tracheostomy tube and PEG tube in place. The patient is sedated and paralyzed synchronous with the mechanical ventilator. No breathing effort have been noted. No evidence of any significance of previous emphysema involving the face or neck or chest area. HEENT examination is grossly unremarkable. Mucous membranes are moist. Tracheostomy tube in place and the patient is an extra long Shiley tracheostomy tube #8. Neck supple. Full range of motion. No adenopathy thyromegaly or neck vein distention. Cardiovascular Cardiac exam revealed the PMI to be normally situated and sized. The rhythm was regular and no extrasystoles were noted during several minutes of auscultation. The first and second heart sounds were normal and physiologic splitting of the second heart sound was noted. There were no murmurs, rubs, clicks, or gallops. Lungs reveal coarse diffuse bilateral inspiratory and expiratory rhonchi and wheezes. No crackles are noted. Breath sounds equal bilaterally. Breath sounds are bit more closely than yesterday's exam. Subcutaneous emphysema is much improved, nearly recovered Abdomen soft and bowel sounds are heard. No masses or tenderness. PEG tube noted. Extremities are intact. No cyanosis clubbing or edema. SkinExamination of the skin revealed no evidence of significant rashes, suspicious appearing nevi or other concerning lesions. Neurologic examination is very difficult to assess given the fact that he is on propofol at 70 mcg/kg/m and Nimbex at 3 mics per kilogram per minute. - Labs CBC & Chem 7: 09/21/18 04:30 09/21/18 04:30 Labs: Abnormal Lab Results - Last 24 Hours (Table) 09/20/18 09/20/18 09/21/18 Range/Units 12:55 18:02 00:46 WBC (3.8-10.6) k/uL RBC (4.30-5.90) m/uL MCV (80.0-100.0) fL Plt Count (150-450) k/uL Neutrophils # (1.3-7.7) k/uL Lymphocytes # (1.0-4.8) k/uL ABG pCO2 (35-45) mmHg ABG pO2 (83-108) mmHg ABG HCO3 (21-25) mmol/L Carbon Dioxide (22-30) mmol/L BUN (9-20) mg/dL Creatinine (0.66-1.25) mg/dL Glucose (74-99) mg/dL POC Glucose (mg/dL) 174 H 166 H 154 H (75-99) mg/dL Magnesium (1.6-2.3) mg/dL 09/21/18 09/21/18 09/21/18 Range/Units 04:30 04:30 04:52 WBC 17.2 H (3.8-10.6) k/uL RBC 4.26 L (4.30-5.90) m/uL MCV 103.2 H (80.0-100.0) fL Plt Count 129 L (150-450) k/uL Neutrophils # 16.3 H (1.3-7.7) k/uL Lymphocytes # 0.3 L (1.0-4.8) k/uL ABG pCO2 56 H (35-45) mmHg ABG pO2 74 L (83-108) mmHg ABG HCO3 32 H (21-25) mmol/L Carbon Dioxide 32 H (22-30) mmol/L BUN 49 H (9-20) mg/dL Creatinine 0.47 L (0.66-1.25) mg/dL Glucose 174 H (74-99) mg/dL POC Glucose (mg/dL) (75-99) mg/dL Magnesium 2.5 H (1.6-2.3) mg/dL 09/21/18 Range/Units 05:51 WBC (3.8-10.6) k/uL RBC (4.30-5.90) m/uL MCV (80.0-100.0) fL Plt Count (150-450) k/uL Neutrophils # (1.3-7.7) k/uL Lymphocytes # (1.0-4.8) k/uL ABG pCO2 (35-45) mmHg ABG pO2 (83-108) mmHg ABG HCO3 (21-25) mmol/L Carbon Dioxide (22-30) mmol/L BUN (9-20) mg/dL Creatinine (0.66-1.25) mg/dL Glucose (74-99) mg/dL POC Glucose (mg/dL) 169 H (75-99) mg/dL Magnesium (1.6-2.3) mg/dL Microbiology - Last 24 Hours (Table) 09/13/18 09:48 Fungal Culture - Preliminary Bronchoalviolar Lavage - Left Amy glabrata Assessment and Plan Plan: Assessment 1 Acute hypoxic/hypercapnic respiratory failure, secondary to COPD exacerbation. The patient had failed to wean and the patient required tracheostomy tube insertion for failure to wean. The patient currently has an extra long tracheostomy tube that was inserted on 09/17/2018 2 Status post bronchoscopy for sampling of the lower respiratory tract and removal of airway secretions on 09/13/2018, and the lavage was also negative and the patient remains on a combination of Rocephin and Zithromax. 3 Status post tracheostomy and PEG tube placement on 09/17/2018. 4 Massive subcutaneous emphysema and pneumomediastinum, post blood patch, and the patient is still showing minimal amount of leak based on the return volumes on the mechanical ventilator. Nevertheless, saphenous emphysema has nearly recovered. 5 Severe end-stage COPD 6 History of chronic and ongoing tobacco dependence 7 Severe ischemic cardiomyopathy with ejection fraction of 20-25% 8 History of noncompliance with medications and follow-ups 9 Previous history of respiratory failure with ventilator dependence 10 Coronary artery disease, status post stent placements in the right coronary artery and circumflex coronary artery 11 History of nonsustained ventricular tachycardia 12 History of DVT 13 Status post fem-fem bypass for peripheral vascular disease 14 History of essential hypertension 15 History of hyperlipidemia CÉSAR Keep the patient sedated and paralyzed for now. Proceed with a CAT scan of the chest with CT angios protocol to rule out pulmonary embolism at the same time characterized abnormalities in the lung bases and assess for any no mediastinum or any other pathology contributing to this patient's massive hypoxemia. Meanwhile, tidal volume down to 400, Down the PEEP down to 13 and with this adjustment the patient's returned volume improved and the leak obviously also improved. We'll obtain a follow-up blood gases and do the necessity vent changes accordingly. Meanwhile, continue enteral feeding for nutrition support. Obtain a CAT scan of the chest. Complete a course of antibiotics and stop after 7 days of Rocephin and Zithromax. Continue enteral feeding for nutritional support. Completed IV Fluids As the Patient Has Gained Significant Amount of Weight and He Has Been Significant Fluid Overload and Positivity. Increase the Lasix to 40 Mg Every 12 Hours. We'll Continue to Follow Make Further Recommendations Based on His Progress. Condition Is Critical. This Is a Critically Care Evaluation Was Done More Than 30 Minutes. Time with Patient: Greater than 30
[2018-09-21 13:08] LABS: Glucose,Whole Blood 178 mg/dL (75-99)
--- NOTE | 2018-09-21 13:18 | CT ---
CT CHEST FOR PULMONARY EMBOLISM. EXAMINATION TYPE: CT angio chest DATE OF EXAM: 09/21/2018 INDICATION: Hypoxemic resp. failure CT DLP: 527.5 mGycm, Automated exposure control for dose reduction was used. CONTRAST: Patient injected with 100 mL of Isovue 370. COMPARISON: 09/09/2018 TECHNIQUE: CT of the chest is performed on a spiral scan at 2 mm thick sections. Study is performed with intravenous contrast timed for evaluation for pulmonary embolism. This will limit additional po rtions of the evaluation. 3-D MIP images reconstructed by the technologist are reviewed on the compu ter in the coronal and sagittal planes. FINDINGS: Endotracheal tube is present with the tip above the dino. No persistent filling defects are evident to suggest an acute pulmonary embolism. No right ventricula r strain is evident. No reflux into the inferior vena cava is evident. No mediastinal or hilar adenopathy enlarged by CT criteria is evident. The ascending aorta diameter at the level of the main pulmonary artery is 4.3 cm. The main pulmonary artery diameter at the bifur cation is 3.5 cm. There is a small left pleural effusion. A small right pleural effusion is also present. Bibasilar con solidations are present. Correlate for atelectasis. Pneumonia is not excluded. Limited CT section through the upper abdomen are unremarkable. COMPARISON: The small right and smaller left pleural effusion have developed over the interval. The c onsolidations at the lung bases have developed over the interval. IMPRESSIONS: 1. Ascending thoracic aortic aneurysm of 4.3 cm at the main pulmonary artery. 2. No acute pulmonary embolism. 3. Interval development of small bilateral pleural effusions. 4. Moderate consolidations at the bilateral lung bases. Correlate for atelectasis and pneumonia. Foll ow-up is recommended. A [place] level critical message alert has been initiated for Nicanor Menjivar via the [employer] Critical Results System on 09/21/2018 1:15 PM. This message alert has been sent to Nicanor Menjivar via the preferences provided by the clinician for the receipt of Radiology Critical Findings. [employer] e ID [id number].
[2018-09-21 14:12] LABS: ABG Base Excess 3.8 mmol/L; ABG HCO3 34 mmol/L (21-25); ABG Oxygen Saturation 95.2 % (94-97); ABG PH 7.25 (7.35-7.45); ABG PO2 90 mmHg (83-108)
[2018-09-21 14:18] LABS: ABG PCO2 80 mmHg (35-45)
--- NOTE | 2018-09-21 15:05 | CDI ---
Last Revision, October 2017 Documentation Clarification Form Date: 09/21/18 From: Mera Jarrod THOMAS Admit Date: 09/10/2018 12:12:00 AM Patient Name: Hansel Dougherty Visit Number: [id number] ATTENTION: The Clinical Documentation Specialists (CDI) and [facility] Coding Staff appreciate your assistance in clarifying documentation. Please respond to the clarification below the line at the bottom and electronically sign. The CDI & [facility] Coding staff will review the response and follow-up if needed. Please note: Queries are made part of the Legal Health Record. If you have any questions, please contact the author of this message via ITS. Reginald Morillo MD, Can you please render your opinion on the following documentation? Pt. admitted for acute exacerbation of COPD, respiratory failure. Pt. intubated. History/Risk Factors: PAD, hyperlipidemia, COPD, CHF, smoker, HTN, CAD Clinical Indicators: WBC on admission: 17.6, on 09/21 - 17.2 Lactic acid: 5.1 Blood cultures: no growth after 144 hours Sputum final: moderate polymorphonuclear leukocytes, few epithelial cells, moderate gram positive cocci, rare gram positive bacilli Bronchoalviolar lavage: Moderate alana glabrata Vitals signs on admission: T 98.2, P 155, R 35, 175/119, 100 VENT Other Clinical Indicators: Pt. intubated x 13 days Treatment: ID Consult: none Antibiotics: Azithromycin IVPB, Ceftriaxone IVPB IV Bolus: .9 500ml x1, .9 1000ml x 2 In your professional opinion, please clarify if these findings signify one of the following conditions, whether the condition is POA, and cause, if known: Sepsis ruled in Sepsis ruled out Severe Sepsis Septic Shock Other, please specify Unable to determine Present on Admission: Yes No Identify the (suspected) organism SIRS Criteria..2 or more of the following may indicate SIRS: Temperature < 96.8F (36C) or > 101.0F (38.3C) Heart Rate > 90 bpm Respiratory Rate > 20 breaths/min or PaCO2 < 32 mmHg White Blood Cell Count > 12,000 or < 4,000 cells/mm3 or > 10% bands Lactate >2.0 mmol/L (>4.0 is equivalent to septic shock) ---- unable to determine , MTDD
[2018-09-21] MEDS: cefTRIAXone 2,000 MG in SODIUM CHLORIDE 0.9% 100 ML IVPB SCH (16:02)
[2018-09-21 16:37] LABS: ABG Base Excess 5.2 mmol/L; ABG HCO3 32 mmol/L (21-25); ABG Oxygen Saturation 92.2 % (94-97); ABG PCO2 60 mmHg (35-45); ABG PH 7.35 (7.35-7.45); ABG PO2 66 mmHg (83-108)
[2018-09-21] MEDS: AZITHROMYCIN 500 MG in SODIUM CHLORIDE 0.9% 250 ML IVPB SCH (17:22)
[2018-09-21 17:34] LABS: Glucose,Whole Blood 163 mg/dL (75-99)
[2018-09-21 17:57] LABS: Glucose,Whole Blood 182 mg/dL (75-99)
[2018-09-21] MEDS: FUROSEMIDE 10 MG/ML 4 ML VIAL IV SCH (20:15)
[2018-09-21] MEDS: ATORVASTATIN 20 MG TAB PO SCH (20:19)
[2018-09-21] MEDS: HYDROmorphone 1 MG/ML 1 ML SYRINGE IVP PRN (21:27)
[2018-09-21 23:52] LABS: Glucose,Whole Blood 129 mg/dL (75-99)
[2018-09-22] MEDS: ARTIFICIAL TEARS-HYPROMELLOSE DROPS 15 ML BTL BOTH EYES SCH ×6 (00:47→21:53)
[2018-09-22] MEDS: methylPREDNISolone SOD SUCCI 125 MG/2 ML VIAL IV SCH ×4 (00:48→17:38)
[2018-09-22] MEDS: PROPOFOL 1,000 MG in EMPTY BAG 1 BAG IV SCH ×6 (00:51→17:17)
[2018-09-22] MEDS: INSULIN ASPART 100 UNIT/ML 1 ML 10 ML VIAL SQ SCH ×4 (00:51→17:37)
[2018-09-22] MEDS: CISATRACURIUM 200 MG in SODIUM CHLORIDE 0.9% 180 ML IV SCH ×2 (01:59→13:19)
[2018-09-22] MEDS: IPRATROPIUM-ALBUTEROL 3 ML NEB INHALATION SCH ×6 (03:09→19:59)
[2018-09-22 04:35] LABS: ABG Base Excess 8.8 mmol/L; ABG HCO3 36 mmol/L (21-25); ABG PCO2 62 mmHg (35-45); ABG PH 7.38 (7.35-7.45); ABG PO2 64 mmHg (83-108)
[2018-09-22 05:07] LABS: Basophils % (A) 0 %; Eosinophils # (A) 0.1 k/uL (0-0.7); Eosinophils % (A) 1 %; HCT 43.3 % (39.0-53.0); HGB 13.6 gm/dL (13.0-17.5); Lymphocytes # (A) 0.3 k/uL (1.0-4.8); Lymphocytes % (A) 2 %; MCH 32.8 pg (25.0-35.0); MCHC 31.5 g/dL (31.0-37.0); MCV 104.2 fL (80.0-100.0); Macrocytosis Slight; Mean Platelet Volume 8.1; Monocytes # (A) 0.8 k/uL (0-1.0); Monocytes % (A) 4 %; Neutrophils # (A) 19.2 k/uL (1.3-7.7); Neutrophils % (A) 94 %; Platelet Count 130 k/uL (150-450); RBC 4.15 m/uL (4.30-5.90); RDW 13.4 % (11.5-15.5); WBC 20.5 k/uL (3.8-10.6)
[2018-09-22 05:19] LABS: Anion Gap 2 mmol/L; Blood Urea Nitrogen 47 mg/dL (9-20); Calcium 8.5 mg/dL (8.4-10.2); Carbon Dioxide 36 mmol/L (22-30); Chloride 104 mmol/L (98-107); Glucose 173 mg/dL (74-99); Magnesium 2.4 mg/dL (1.6-2.3); Phosphorus 3.4 mg/dL (2.5-4.5); Potassium 4.3 mmol/L (3.5-5.1); Sodium 142 mmol/L (137-145)
[2018-09-22 06:28] LABS: Glucose,Whole Blood 179 mg/dL (75-99)
[2018-09-22] MEDS: FORMOTEROL FUMARATE 20 MCG/2 ML NEBU INHALATION SCH ×3 (07:24→19:59)
[2018-09-22] MEDS: BUDESONIDE 1 MG/2 ML NEBU INHALATION SCH ×3 (07:25→19:59)
--- NOTE | 2018-09-22 07:25 | PN ---
PROGRESS NOTE DATE OF SERVICE: 09/21/2018 PRESENTING COMPLAINT: Intubated. INTERVAL HISTORY: This is a patient with advanced COPD, smoker, CHF, admitted with exacerbation of the same. Remains in the ICU, intubated. Patient is status post a PEG tube and a tracheostomy tube on 09/17/[address] Baptiste. Patient then had an air leak and had pneumomediastinum and surgical emphysema. Patient currently remains on the ventilator with FiO2 of 17 and a PEEP of 8. Telemetry shows sinus rhythm. Tube feeding remains in place. Drips include Nimbex and Diprivan, the latter being at 75. REVIEW OF SYSTEMS: Patient intubated. CURRENT MEDICATIONS: Reviewed that include IV Diprivan, IV Nimbex, IV azithromycin, IV ceftriaxone. PHYSICAL EXAMINATION: Temperature 98.8, pulse 93, respiration 26, blood pressure 130/57, pulse ox 98%. GENERAL APPEARANCE: Lying in bed, intubated. EYES: Pupil equal, conjunctivae are normal. HEENT: External appearance of nose and ears normal, oral cavity, some dry mucous membrane. NECK: Tracheostomy in place, JVD unable to assess. RESPIRATORY: Effort increased, lungs decreased breath sounds. CARDIOVASCULAR: First and second sounds are normal. No edema. ABDOMEN: Soft, nontender. Liver and spleen not palpable. NEUROLOGICAL: Pupils are equal. Gag is present. INVESTIGATIONS: Blood gases are noted, white count 7.2, hemoglobin 13.6 potassium 4.1, BUN 49, creatinine 0.47. Chest x-ray, reports improved subcutaneous emphysema and pneumomediastinum, bibasilar infiltrates. ASSESSMENT: 1. Acute severe chronic obstructive pulmonary disease exacerbation in a current smoker, slow to respond. 2. Chronic nicotine dependence, patient is a cigarette smoker. 3. Acute on chronic congestive heart failure exacerbation from systolic dysfunction, ejection fraction 20%. 4. Acute hypoxic respiratory failure from underlying chronic obstructive pulmonary disease, remains on ventilator assistance, slow to respond. 5. Coronary artery with stent in 2013. 6. Peripheral artery disease with fem-fem bypass. 7. Hyperlipidemia. 8. Essential hypertension. 9. Restless legs syndrome. 10.Chronic rotator cuff injury. 11.Gastroesophageal reflux disease. 12.Status post bronchoscopy. 13.Tracheostomy and a PEG tube feeding. 14.Iatrogenic pneumomediastinum. PLAN: Prognosis remains guarded. Continue supportive care. Will discuss with Dr. Mnejivar. Patient's Solu-Medrol should be able to be scaled back, too. Prognosis remains guarded. The patient's bronchial cultures have all been negative except growing some Amy glabrata. Overall slow to respond. MMODL / IJN: [id number] /
--- NOTE | 2018-09-22 08:24 | XR ---
EXAMINATION TYPE: XR chest 1V portable DATE OF EXAM: 09/22/2018 COMPARISON: 09/21/2018 HISTORY: Tracheostomy tube placement TECHNIQUE: Single frontal view of the chest is obtained. FINDINGS: There is bilateral consolidation and pleural effusion. No pneumothorax. Hyperinflation sug gests COPD. Heart size stable and there is atherosclerotic change of the aorta. Tracheostomy tube sta ble. IMPRESSION: Bilateral consolidation and pleural effusion appear stable. Correlate for underlying [employer] D. Venous congestion not excluded.
--- NOTE | 2018-09-22 08:32 | CDI ---
Last Revision, October 2017 Documentation Clarification Form Date: 09/22/18 From: Mera Garay RN Admit Date: 09/10/2018 12:12:00 AM Patient Name: Hansel Dougherty Visit Number: [id number] ATTENTION: The Clinical Documentation Specialists (CDI) and [facility] Coding Staff appreciate your assistance in clarifying documentation. Please respond to the clarification below the line at the bottom and electronically sign. The CDI & [facility] Coding staff will review the response and follow-up if needed. Please note: Queries are made part of the Legal Health Record. If you have any questions, please contact the author of this message via ITS. Percy Nelson , DO, Can you please render your opinion on the following documentation? Blood patch is documented in the PN dated 09/21. Also charted in PN on 09/21: The patient's course was complicated by development of a air leak for which she was followed up by Dr. Baptiste and the patient underwent a blood patch. Massive subcutaneous emphysema and pneumomediastinum, post blood patch, and the patient is still showing minimal amount of leak based on the return volumes on the mechanical ventilator. Patients Admitting Diagnosis: ACUTE exacerbation of COPD, and respiratory failure Post-Operative Diagnosis: subcutaneous emphysema post tracheostomy with air leak Procedure performed: bronchoscopy and adjustment of trach tube History/Risk Factors: PAD, hyperlipidemia, COPD, CHF, smoker, HTN, CAD, DVT Clinical Indicators: Notes in chart as stated above Treatment: Blood patch Consults: Dr Baptiste In order to accurately reflect this patients severity of illness, please clarify if the post-operative diagnosis is: An expected post-procedural or post-surgical condition; Integral to the procedure; Inherent to the procedure; An unexpected post-procedural or post-surgical condition related to surgical care; Other, please specify Unable to determine MTDD
[2018-09-22] MEDS: CHLORHEXIDINE GLUCONATE 15 ML CUP MUCOUS MEM SCH ×2 (08:53→22:01)
[2018-09-22] MEDS: LISINOPRIL 2.5 MG TAB PO SCH ×2 (08:54→23:38)
[2018-09-22] MEDS: METOPROLOL TARTRATE 25 MG TAB PO SCH ×2 (08:54→23:38)
[2018-09-22] MEDS: ASPIRIN 81 MG PO SCH (08:55)
[2018-09-22] MEDS: NICOTINE 21MG/24HR PATCH TRANSDERM SCH (09:09)
[2018-09-22] MEDS: ENOXAPARIN 40 MG/0.4 ML SYRINGE SQ SCH (09:12)
[2018-09-22] MEDS: FAMOTIDINE 20 MG/2 ML VIAL IV SCH ×2 (09:20→22:01)
[2018-09-22] MEDS: FUROSEMIDE 10 MG/ML 4 ML VIAL IV SCH ×2 (09:23→22:01)
[2018-09-22 12:11] LABS: Glucose,Whole Blood 162 mg/dL (75-99)
--- NOTE | 2018-09-22 12:36 | P.PN ---
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 tach, DVT, peripheral vascular disease with previous fem-fem bypass surgery, hypertension and hyperlipidemia, who is currently in the intensive care unit intubated on a mechanical ventilator. The patient was admitted again to the hospital because of acute respiratory failure and he was admitted on 09/10/2018. He failed to wean and subsequently he underwent a tracheostomy and a PEG tube insertion. The patient's course was complicated by development of a air leak for which she was followed up by Dr. Baptiste and the patient underwent a blood patch. During the course of his treatment, the patient developed massive subcutaneous emphysema and pneumomediastinum without pneumothorax. This was managed conservatively. This morning, the patient is sedated and paralyzed. I have him on a assist- control mode of ventilation with a tidal volume of 500, FiO2 of 100%, PEEP of 15 and the respiratory rate of 22. Morning blood gases showed a pH of 7.37 with a pCO2 of 56 and pO2 of 74. His peak airway pressure was around 38. He static pressure is 26. Chest x-ray shows hyperinflation and there is lower lobe haziness bilaterally more so on the right and there is no evidence of any pneumothorax. The patient has diminished breath sounds bilaterally. Breath sounds are equal and symmetrical and there is no significant bronchospasm and wheezing. As mentioned, his foot is sedated and Diprivan is running at 70 mics per KG per minute and the patient is also paralyzed with Nimbex. He is on IV fluids at 75 mL an hour of normal saline and the patient was receiving also Lasix 20 mg IV push every 12 hours. He is afebrile. He is on accommodation Rocephin and Zithromax and his been on the same antibiotic coverage for the past 1 week at least. No positive cultures have been obtained during this current hospitalization. White cell count is at 17.2. His cardiac rhythm is sinus. No significant arrhythmias have been noted. Rest of the blood work including the electrodes and the renal function are all within normal limits. He remains on bronchodilators with DuoNeb nebulized treatment [id number], he is on IV Solu-Medrol 60 mg every 6 hours. He is also on a combination of Perforomist and Pulmicort neb last treatment twice a day. Rest of the medication were all reviewed. He is receiving enteral feeding via PEG tube and the exit site is clean and the patient is able to tolerate the tube feeds without any major difficulties and he is currently at goal at 45 mL an hour of vital high protein. He has an adequate urine output is producing approximately 50-60 an hour. Nevertheless, his net fluid balance has been persistent positive being 1.6 L positive on 09/18/2018, 1 L positive on 09/19/2018, 4 L positive on 09/20/2018 and another 2.4 L positive since earlier this morning. I noticed that the patient is at least 3 kg heavier in weight compared to 2017. On 09/22/2000 Seeing this patient for a follow-up. This patient is post ventilator-dependent respiratory failure secondary to COPD exacerbation. He was sedated and paralyzed. CAT scan of the chest was done yesterday that showed emphysema involving the upper lobes bilaterally. There was extensive atelectatic change the lung bases more so on the right. Small bilateral pleural effusion with also seen however these were essentially small and the predominant abnormality was the significant atelectatic changes and consolidation of the lung bases bilaterally. The patient is morning is on a combination of Diprivan and Nimbex for sedation. The patient is intubated on a mechanical ventilator. Based on my yesterday's evaluation, I dropped a PEEP down to 10 and FiO2 at 60% with a tidal volume of 400 and the rate of 26. The peak air pressure from this morning was 28. Static pressure was around 16. The blood gases from earlier showed a pH of 7.38 with a pCO2 of 62 and pO2 of 64 and this was done and FiO2 of 70%. Chest x-ray still showing opacification lung bases bilaterally. Based on this, I performed a bronchoscopy during which there was some mucous plugs identified in the lower lobes bilaterally more so on the right and therapeutic it was suctioning was done and the bronchial aspirate was sent for microbial analysis and cultures. The patient was also taken off antibiotics knowing that the patient has been covered with the same antibiotics for almost a week and is included a combination of Rocephin and Zithromax. He remains on accommodation broncho-dilators steroids. He is tolerating his tube feeds. He is hemodynamically stable. Is afebrile. No significant subcu EMPHYSEMA. White cell count stable at 20.5. Hemoglobin stable at 13.6. Objective - Vital Signs Vital signs: Vital Signs Temp 98.4 F 09/22/18 12:00 Pulse 84 09/22/18 12:00 Resp 26 H 09/22/18 12:00 BP 138/67 09/16/18 07:00 Pulse Ox 91 L 09/22/18 12:00 Intake & Output 09/21/18 09/22/18 09/22/18 18:59 06:59 18:59 Intake Total 5271.180 3604.435 545.87 Output Total 1220 1830 930 Balance 738.976 -497.565 -384.13 Weight 92.9 kg 94 kg Intake: IV 843 278 138 Azithromycin 500 mg In 250 2 Sodium Chloride 0.9% 250 ml @ 250 mls/hr IVPB Q24H [facility] Rx#:[id number] Pressure bag of 0.9 NaCl- 33 36 18 Sodium Chloride 0.9% 1, 160 240 120 000 ml @ 20 mls/hr IV . Q24H [facility] Rx#:[id number] Sodium Chloride 0.9% 1, 300 000 ml @ 75 mls/hr IV . [id number] [facility] Rx#:[id number] cefTRIAXone 2,000 mg In 100 Sodium Chloride 0.9% 100 ml @ 100 mls/hr IVPB Q24H [facility] Rx#:[id number] Intake, IV Titration 340.976 527.435 162.87 Amount Cisatracurium 200 mg In 140.976 200 Sodium Chloride 0.9% 180 ml @ 2 MCG/KG/MIN 10.68 mls/hr IV .[id number] [facility] Rx #:[id number] Propofol 1,000 mg In 200 327.435 162.87 Empty Bag 1 bag @ Titrate IV .Q0M [facility] Rx#: [id number] Tube Feeding 685 497 185 Other 90 30 60 Output: Urine 1220 1830 930 Other: Voiding Method Indwelling Catheter Indwelling Catheter Indwelling Catheter ABP, PAP, CO, CI - Last Documented Arterial Blood Pressure 106/43 - Exam No acute distress, sedated and paralyzed, with a tracheostomy tube and PEG tube in place. The patient is sedated and paralyzed synchronous with the mechanical ventilator. No breathing effort have been noted. No evidence of any significance of previous emphysema involving the face or neck or chest area. HEENT examination is grossly unremarkable. Mucous membranes are moist. Tracheostomy tube in place and the patient is an extra long Shiley tracheostomy tube #8. Neck supple. Full range of motion. No adenopathy thyromegaly or neck vein distention. Cardiovascular Cardiac exam revealed the PMI to be normally situated and sized. The rhythm was regular and no extrasystoles were noted during several minutes of auscultation. The first and second heart sounds were normal and physiologic splitting of the second heart sound was noted. There were no murmurs, rubs, clicks, or gallops. Lungs reveal coarse diffuse bilateral inspiratory and expiratory rhonchi and wheezes. No crackles are noted. Breath sounds equal bilaterally. Breath sounds are bit more closely than yesterday's exam. Subcutaneous emphysema is much improved, nearly recovered Abdomen soft and bowel sounds are heard. No masses or tenderness. PEG tube noted. Extremities are intact. No cyanosis clubbing or edema. SkinExamination of the skin revealed no evidence of significant rashes, suspicious appearing nevi or other concerning lesions. Neurologic examination is very difficult to assess given the fact that he is on propofol at 70 mcg/kg/m and Nimbex at 3 mics per kilogram per minute. - Labs CBC & Chem 7: 09/22/18 04:50 09/22/18 04:50 Labs: Abnormal Lab Results - Last 24 Hours (Table) 09/21/18 09/21/18 09/21/18 Range/Units 13:06 13:59 16:30 WBC (3.8-10.6) k/uL RBC (4.30-5.90) m/uL MCV (80.0-100.0) fL Plt Count (150-450) k/uL Neutrophils # (1.3-7.7) k/uL Lymphocytes # (1.0-4.8) k/uL ABG pH 7.25 L (7.35-7.45) ABG pCO2 80 H* 60 H (35-45) mmHg ABG pO2 66 L (83-108) mmHg ABG HCO3 34 H 32 H (21-25) mmol/L ABG O2 Saturation 92.2 L (94-97) % Carbon Dioxide (22-30) mmol/L BUN (9-20) mg/dL Creatinine (0.66-1.25) mg/dL Glucose (74-99) mg/dL POC Glucose (mg/dL) 178 H (75-99) mg/dL Magnesium (1.6-2.3) mg/dL 09/21/18 09/21/18 09/21/18 Range/Units 17:32 17:57 23:50 WBC (3.8-10.6) k/uL RBC (4.30-5.90) m/uL MCV (80.0-100.0) fL Plt Count (150-450) k/uL Neutrophils # (1.3-7.7) k/uL Lymphocytes # (1.0-4.8) k/uL ABG pH (7.35-7.45) ABG pCO2 (35-45) mmHg ABG pO2 (83-108) mmHg ABG HCO3 (21-25) mmol/L ABG O2 Saturation (94-97) % Carbon Dioxide (22-30) mmol/L BUN (9-20) mg/dL Creatinine (0.66-1.25) mg/dL Glucose (74-99) mg/dL POC Glucose (mg/dL) 163 H 182 H 129 H (75-99) mg/dL Magnesium (1.6-2.3) mg/dL 09/22/18 09/22/18 09/22/18 Range/Units 04:15 04:50 04:50 WBC 20.5 H (3.8-10.6) k/uL RBC 4.15 L (4.30-5.90) m/uL MCV 104.2 H (80.0-100.0) fL Plt Count 130 L (150-450) k/uL Neutrophils # 19.2 H (1.3-7.7) k/uL Lymphocytes # 0.3 L (1.0-4.8) k/uL ABG pH (7.35-7.45) ABG pCO2 62 H (35-45) mmHg ABG pO2 64 L (83-108) mmHg ABG HCO3 36 H (21-25) mmol/L ABG O2 Saturation 92.0 L (94-97) % Carbon Dioxide 36 H (22-30) mmol/L BUN 47 H (9-20) mg/dL Creatinine 0.44 L (0.66-1.25) mg/dL Glucose 173 H (74-99) mg/dL POC Glucose (mg/dL) (75-99) mg/dL Magnesium 2.4 H (1.6-2.3) mg/dL 09/22/18 09/22/18 Range/Units 06:27 12:09 WBC (3.8-10.6) k/uL RBC (4.30-5.90) m/uL MCV (80.0-100.0) fL Plt Count (150-450) k/uL Neutrophils # (1.3-7.7) k/uL Lymphocytes # (1.0-4.8) k/uL ABG pH (7.35-7.45) ABG pCO2 (35-45) mmHg ABG pO2 (83-108) mmHg ABG HCO3 (21-25) mmol/L ABG O2 Saturation (94-97) % Carbon Dioxide (22-30) mmol/L BUN (9-20) mg/dL Creatinine (0.66-1.25) mg/dL Glucose (74-99) mg/dL POC Glucose (mg/dL) 179 H 162 H (75-99) mg/dL Magnesium (1.6-2.3) mg/dL Microbiology - Last 24 Hours (Table) 09/13/18 09:48 Acid Fast Bacilli Smear - Final Bronchoalviolar Lavage - Left Acid Fast Bacilli Culture - Preliminary Assessment and Plan Plan: Assessment 1 Acute hypoxic/hypercapnic respiratory failure, secondary to COPD exacerbation. The patient had failed to wean and the patient required tracheostomy tube insertion for failure to wean. The patient currently has an extra long tracheostomy tube that was inserted on 09/17/2018. On today's evaluation the patient remains sedated and paralyzed, intubated on a mechanical ventilator on the CAT scan of the chest is showing extensive emphysematous changes in the upper lobes in addition to large atelectatic changes in lung bases more so on the right with possible consolidation and small better pleural effusions. Bronchoscopy was done and therapeutic it was suctioning was done and mucous plugs were removed from the right lower lobe and the samples were sent for cultures. 2 Status post bronchoscopy for sampling of the lower respiratory tract and removal of airway secretions on 09/13/2018, and subsequently the bronchoscope was repeated on 09/22/2018 and the patient will be taken off antibiotics pending further cultures. Therapeutic it was suctioning was done. 3 Status post tracheostomy and PEG tube placement on 09/17/2018. 4 Massive subcutaneous emphysema and pneumomediastinum, post blood patch, and the patient is still showing minimal amount of leak based on the return volumes on the mechanical ventilator. Nevertheless, subcutaneous emphysema has nearly, and the patient is returning his volumes back without any major difficulties. 5 Severe end-stage COPD 6 History of chronic and ongoing tobacco dependence 7 Severe ischemic cardiomyopathy with ejection fraction of 20-25% 8 History of noncompliance with medications and follow-ups 9 Previous history of respiratory failure with ventilator dependence 10 Coronary artery disease, status post stent placements in the right coronary artery and circumflex coronary artery 11 History of nonsustained ventricular tachycardia 12 History of DVT 13 Status post fem-fem bypass for peripheral vascular disease 14 History of essential hypertension 15 History of hyperlipidemia PLAN The patient underwent his bronchoscopy. Stop Rocephin and Zithromax. Awaiting cultures and sensitivities from the bronchioloalveolar lavage to make further decision and antibiotic coverage. Continue diuretics. Continue sedation. Give the patient paralytic holiday. Monitor the blood gases. Monitor the white cell count. Continue enteral feeding for nutritional support. Continue bronchodilators and systemic steroids. Condition is still very critical and the patient will be followed up closely in ICU. This evaluation was done in more than 30 minutes excluding time to do any procedures. CAT scan of the chest was reviewed. Blood work was all reviewed. The discussions with the family was done. Time with Patient: Greater than 30
[2018-09-22] MEDS: SODIUM CHLORIDE 0.9% 1,000 ML IV SCH (12:46)
--- NOTE | 2018-09-22 13:00 | PCN ---
PROCEDURE NOTE PROCEDURE NOTE: Bronchoscopy. PREOPERATIVE DIAGNOSES: Acute respiratory failure, prolonged mechanical ventilation, atelectatic change in the lung bases bilaterally. POSTOPERATIVE DIAGNOSES: Acute respiratory failure, prolonged mechanical ventilation, atelectatic change in the lung bases bilaterally. In addition to mucus plugs involving the lung bases bilaterally. PROCEDURE: This procedure was done in the intensive care unit. The patient was already sedated and paralyzed. Afterwards attaching an adaptor to the orotracheal tube, the patient was placed on FiO2 of 100%. Following that, a flexible bronchoscope was introduced through the orotracheal tube into the lower trachea. The tip of the ET tube was seen around 2 cm above the dino. The airway inspection was done. The distal trachea was within normal limits. The airway inspection include bilateral mainstem bronchi, right upper lobe bronchus, bronchus intermedius, right middle lobe bronchus, right lower lobe bronchus, left upper lobe bronchus and left lower bronchus with various segments and subsegments. Mucus plugs were visualized plugging the various segments of the right lower lobe, especially the lateral segment and the posterior segment and the superior segment. In addition to that some mucus plugs were seen in the posterior segments of the left lower lobe. Therapeutic airway suctioning was done. Segmental bronchial washing was done. The segments in the lower lobe were irrigated with saline. They were suctioned out using the flexible bronchoscope. At the end of the procedure, no residual secretions were seen and the patient's airways were quite patent. The bronchoscope was removed. Then the patient had the procedure without any complications. The sample will be sent for microbial cultures and analysis. MMODL / IJN: [id number] /
[2018-09-22] MEDS: HYDROmorphone 1 MG/ML 1 ML SYRINGE IVP PRN (16:16)
[2018-09-22 16:41] LABS: Appearance,BF Cloudy; Color,BF Brown; Nucleated Cells, Body Fluid 42000 /uL; RBC, Body Fluid 2500 /uL
[2018-09-22 16:42] LABS: Polynuclear WBC,Body Fluid 100 %; Total Cells Counted,Body Fluid 100
[2018-09-22 17:32] LABS: Glucose,Whole Blood 144 mg/dL (75-99)
[2018-09-22 18:55] LABS: Magnesium 2.4 mg/dL (1.6-2.3); Potassium 4.1 mmol/L (3.5-5.1)
--- NOTE | 2018-09-22 20:10 | PN ---
PROGRESS NOTE DATE OF SERVICE: September 22, 2018. PRESENTING COMPLAINT: Intubated. INTERVAL HISTORY: This patient with advanced COPD, smoker, CHF, presented with exacerbation of the same. Remains in the ICU, intubated. The patient has a PEG tube and a tracheostomy tube on 09/17/[address] Baptiste. Also had an with pneumomediastinum and surgical emphysema. The patient did undergo bronchoscopy by Dr. Menjivar today. Several mucous plugs were removed. The patient remains in sinus rhythm. Drips include IV propofol at 70 mics and Nimbex at 3 mcg. FiO2 70 and a PEEP of 10. REVIEW OF SYSTEMS: Patient is intubated. CURRENT MEDICATIONS: Reviewed that include IV Diprivan, Nimbex and IV antibiotics. PHYSICAL EXAMINATION: VITAL SIGNS: Temperature 98.4, pulse 84, respiration 26, blood pressure 107/43, pulse ox 91 percent on the vent. GENERAL APPEARANCE: Lying in bed, intubated. EYES: Pupils equal. Conjunctivae normal. HEENT: External appearance of nose and ears normal. Oral cavity dry. NECK: Tracheostomy in place. JVD unable to assess. RESPIRATORY: Effort increased. LUNGS: Decreased breath sounds. CARDIOVASCULAR: 1st and 2nd sounds normal. No edema. ABDOMEN: Soft, nontender. Liver and spleen not palpable. NEUROLOGICAL: Pupils equal. Gag is present. INVESTIGATIONS: Accu-Cheks are noted. White count 20.5, hemoglobin 13.6, potassium 4.3, BUN 27, creatinine 0.44. ASSESSMENT: 1. Acute severe chronic obstructive pulmonary disease exacerbation in a current smoker, slow to respond. 2. Status post bronchoscopy x2, including one today on September 22, 2018. 3. Chronic nicotine dependence, patient is a cigarette smoker. 4. Acute on chronic congestive heart failure exacerbation from systolic dysfunction EF 20%. 5. Acute hypoxic respiratory failure from underlying chronic obstructive pulmonary disease. The patient remains on the ventilator assistance, slow to respond. 6. Coronary artery disease with stent in 2013. 7. Peripheral artery disease, fem-fem bypass. 8. Hyperlipidemia. 9. Essential hypertension. 10.Restless legs syndrome. 11.Chronic rotator cuff injury. 12.Gastroesophageal reflux disease. 13.Status post a tracheostomy and PEG tube with feeding. 14.Status post bronchoscopy x2. 15.Aortogenic pneumomediastinum. PLAN: Prognosis remains guarded. We will see how patient does after the bronch today, several mucous plugs were removed. Antibiotic, steroids, bronchodilators to continue. The patient remains on the ventilator. MMODL / IJN: [id number] /
[2018-09-22] MEDS: ATORVASTATIN 20 MG TAB PO SCH (22:01)
[2018-09-22 23:49] LABS: Glucose,Whole Blood 183 mg/dL (75-99)
[2018-09-23] MEDS: INSULIN ASPART 100 UNIT/ML 1 ML 10 ML VIAL SQ SCH ×4 (00:03→18:43)
[2018-09-23] MEDS: methylPREDNISolone SOD SUCCI 125 MG/2 ML VIAL IV SCH ×4 (00:04→18:27)
[2018-09-23] MEDS: IPRATROPIUM-ALBUTEROL 3 ML NEB INHALATION SCH ×7 (01:38→23:14)
[2018-09-23 04:45] LABS: Anion Gap 0 mmol/L; Blood Urea Nitrogen 47 mg/dL (9-20); Calcium 8.5 mg/dL (8.4-10.2); Carbon Dioxide 40 mmol/L (22-30); Chloride 101 mmol/L (98-107); Glucose 168 mg/dL (74-99); Magnesium 2.3 mg/dL (1.6-2.3); Phosphorus 2.8 mg/dL (2.5-4.5); Potassium 3.9 mmol/L (3.5-5.1); Sodium 141 mmol/L (137-145)
[2018-09-23] MEDS: PROPOFOL 1,000 MG in EMPTY BAG 1 BAG IV SCH ×3 (05:35→20:26)
[2018-09-23 05:39] LABS: Glucose,Whole Blood 157 mg/dL (75-99)
[2018-09-23 05:48] LABS: ABG Oxygen Saturation 92.6 % (94-97); ABG PCO2 61 mmHg (35-45); ABG PH 7.45 (7.35-7.45); ABG PO2 63 mmHg (83-108); ABG TCO2 44 mmol/L (19-24)
[2018-09-23 05:54] LABS: ABG HCO3 42 mmol/L (21-25)
[2018-09-23] MEDS ORDERED: POTASSIUM BICARBONATE/CIT AC 20 MEQ TABLET.EFF NG-TUBE SCH (06:00)
[2018-09-23 06:53] LABS: Basophils % (A) 0 %; Eosinophils # (A) 0.1 k/uL (0-0.7); Eosinophils % (A) 0 %; HCT 41.3 % (39.0-53.0); HGB 13.4 gm/dL (13.0-17.5); Lymphocytes # (A) 0.2 k/uL (1.0-4.8); Lymphocytes % (A) 1 %; MCH 33.7 pg (25.0-35.0); MCHC 32.4 g/dL (31.0-37.0); MCV 104.1 fL (80.0-100.0); Macrocytosis Slight; Mean Platelet Volume 9.3; Monocytes # (A) 0.7 k/uL (0-1.0); Monocytes % (A) 4 %; Neutrophils % (A) 95 %; Platelet Count 111 k/uL (150-450); RBC 3.97 m/uL (4.30-5.90); RDW 13.2 % (11.5-15.5); WBC 20.1 k/uL (3.8-10.6)
[2018-09-23] MEDS: BUDESONIDE 1 MG/2 ML NEBU INHALATION SCH ×2 (07:53→19:31)
[2018-09-23] MEDS: FORMOTEROL FUMARATE 20 MCG/2 ML NEBU INHALATION SCH ×2 (07:53→19:31)
[2018-09-23] MEDS: NICOTINE 21MG/24HR PATCH TRANSDERM SCH (08:47)
[2018-09-23] MEDS: FUROSEMIDE 10 MG/ML 4 ML VIAL IV SCH ×2 (08:48→20:31)
[2018-09-23] MEDS: METOPROLOL TARTRATE 25 MG TAB PO SCH ×2 (08:48→20:31)
[2018-09-23] MEDS: CHLORHEXIDINE GLUCONATE 15 ML CUP MUCOUS MEM SCH ×2 (08:48→20:31)
[2018-09-23] MEDS: FAMOTIDINE 20 MG/2 ML VIAL IV SCH ×2 (08:48→20:31)
[2018-09-23] MEDS: LISINOPRIL 2.5 MG TAB PO SCH ×2 (08:48→20:30)
[2018-09-23] MEDS: ENOXAPARIN 40 MG/0.4 ML SYRINGE SQ SCH (08:48)
[2018-09-23] MEDS: ASPIRIN 81 MG PO SCH (08:48)
--- NOTE | 2018-09-23 11:14 | XR ---
EXAMINATION TYPE: XR chest 1V portable DATE OF EXAM: 09/23/2018 COMPARISON: 09/22/2018 INDICATION: Short of breath TECHNIQUE: Single frontal view of the chest is obtained. FINDINGS: The heart size is normal. The pulmonary vasculature is normal. Right lower lobe infiltrate is present. This is improving from comparison. Tracheostomy tube is in th e midline. IMPRESSION: 1. Improving right lower lobe infiltrate.
[2018-09-23 11:20] LABS: ABG Base Excess 19.8 mmol/L; ABG Oxygen Saturation 84.2 % (94-97); ABG PCO2 52 mmHg (35-45); ABG PH 7.52 (7.35-7.45); ABG TCO2 44 mmol/L (19-24)
[2018-09-23 11:27] LABS: ABG HCO3 43 mmol/L (21-25); ABG PO2 45 mmHg (83-108)
--- NOTE | 2018-09-23 11:32 | P.PN ---
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 tach, DVT, peripheral vascular disease with previous fem-fem bypass surgery, hypertension and hyperlipidemia, who is currently in the intensive care unit intubated on a mechanical ventilator. The patient was admitted again to the hospital because of acute respiratory failure and he was admitted on 09/10/2018. He failed to wean and subsequently he underwent a tracheostomy and a PEG tube insertion. The patient's course was complicated by development of a air leak for which she was followed up by Dr. Baptiste and the patient underwent a blood patch. During the course of his treatment, the patient developed massive subcutaneous emphysema and pneumomediastinum without pneumothorax. This was managed conservatively. This morning, the patient is sedated and paralyzed. I have him on a assist- control mode of ventilation with a tidal volume of 500, FiO2 of 100%, PEEP of 15 and the respiratory rate of 22. Morning blood gases showed a pH of 7.37 with a pCO2 of 56 and pO2 of 74. His peak airway pressure was around 38. He static pressure is 26. Chest x-ray shows hyperinflation and there is lower lobe haziness bilaterally more so on the right and there is no evidence of any pneumothorax. The patient has diminished breath sounds bilaterally. Breath sounds are equal and symmetrical and there is no significant bronchospasm and wheezing. As mentioned, his foot is sedated and Diprivan is running at 70 mics per KG per minute and the patient is also paralyzed with Nimbex. He is on IV fluids at 75 mL an hour of normal saline and the patient was receiving also Lasix 20 mg IV push every 12 hours. He is afebrile. He is on accommodation Rocephin and Zithromax and his been on the same antibiotic coverage for the past 1 week at least. No positive cultures have been obtained during this current hospitalization. White cell count is at 17.2. His cardiac rhythm is sinus. No significant arrhythmias have been noted. Rest of the blood work including the electrodes and the renal function are all within normal limits. He remains on bronchodilators with DuoNeb nebulized treatment [id number], he is on IV Solu-Medrol 60 mg every 6 hours. He is also on a combination of Perforomist and Pulmicort neb last treatment twice a day. Rest of the medication were all reviewed. He is receiving enteral feeding via PEG tube and the exit site is clean and the patient is able to tolerate the tube feeds without any major difficulties and he is currently at goal at 45 mL an hour of vital high protein. He has an adequate urine output is producing approximately 50-60 an hour. Nevertheless, his net fluid balance has been persistent positive being 1.6 L positive on 09/18/2018, 1 L positive on 09/19/2018, 4 L positive on 09/20/2018 and another 2.4 L positive since earlier this morning. I noticed that the patient is at least 3 kg heavier in weight compared to 2017. On 09/22/2000 Seeing this patient for a follow-up. This patient is post ventilator-dependent respiratory failure secondary to COPD exacerbation. He was sedated and paralyzed. CAT scan of the chest was done yesterday that showed emphysema involving the upper lobes bilaterally. There was extensive atelectatic change the lung bases more so on the right. Small bilateral pleural effusion with also seen however these were essentially small and the predominant abnormality was the significant atelectatic changes and consolidation of the lung bases bilaterally. The patient is morning is on a combination of Diprivan and Nimbex for sedation. The patient is intubated on a mechanical ventilator. Based on my yesterday's evaluation, I dropped a PEEP down to 10 and FiO2 at 60% with a tidal volume of 400 and the rate of 26. The peak air pressure from this morning was 28. Static pressure was around 16. The blood gases from earlier showed a pH of 7.38 with a pCO2 of 62 and pO2 of 64 and this was done and FiO2 of 70%. Chest x-ray still showing opacification lung bases bilaterally. Based on this, I performed a bronchoscopy during which there was some mucous plugs identified in the lower lobes bilaterally more so on the right and therapeutic it was suctioning was done and the bronchial aspirate was sent for microbial analysis and cultures. The patient was also taken off antibiotics knowing that the patient has been covered with the same antibiotics for almost a week and is included a combination of Rocephin and Zithromax. He remains on accommodation broncho-dilators steroids. He is tolerating his tube feeds. He is hemodynamically stable. Is afebrile. No significant subcu EMPHYSEMA. White cell count stable at 20.5. Hemoglobin stable at 13.6. On 09/23/2018, the patient is off paralytics and he remains sedated, comfortable on a mechanical ventilator. Earlier this morning he is vent setting included a PEEP of 10 with an FiO2 of 70% and a tidal volume of 400 and the rate of 26. Chest x-ray showed improvement in the right lower lobe pulmonary infiltrate/opacity. Note that the patient underwent a bronchoscopy yesterday and therapeutic it was suctioning was done and mucous plugs were removed and the lung bases bilaterally. Cultures were also sent and the results are still pending for now. Brando this improvement, the patient's blood gases did not show marked improvement in oxygenation. The pH is 7.45 with a pCO2 of 61 and pO2 of 53. I tried to go with higher tidal volume yet this failed knowing that this. The patient's oxygenation and the patient became alkalotic. I put him back on a PEEP of 14 with an FiO2 of 70% tidal volume of 400 with a rate of 26. The patient is currently sedated, comfortable recurrence with a mechanical ventilator and the patient is not showing any agitation or restlessness. No evidence of any subcutaneous emphysema. Hemodynamically stable. White cell count is at 20. The patient on no antibiotics for now. Tolerating his tube feeds. His renal function is stable. Rest of the electrolytes are all within normal limits and the patient has a component of metabolic alkalosis which is compensatory to his chronic hypercapnic respiratory failure. Objective - Vital Signs Vital signs: Vital Signs Temp 99.3 F 09/23/18 08:00 Pulse 89 09/23/18 10:00 Resp 26 H 09/23/18 10:00 BP 132/69 09/23/18 10:00 Pulse Ox 91 L 09/23/18 10:00 Intake & Output 09/22/18 09/23/18 09/23/18 18:59 06:59 18:59 Intake Total 1533.669 891.660 328.105 Output Total 1425 1725 800 Balance 108.669 -833.340 -471.895 Weight 92.1 kg Intake: IV 276 293 92 Pressure bag of 0.9 NaCl- 36 53 12 Sodium Chloride 0.9% 1, 240 240 80 000 ml @ 20 mls/hr IV . Q24H [facility] Rx#:[id number] Intake, IV Titration 612.669 94.660 58.105 Amount Cisatracurium 200 mg In 202.564 Sodium Chloride 0.9% 180 ml @ 2 MCG/KG/MIN 10.68 mls/hr IV .[id number] [facility] Rx #:[id number] Propofol 1,000 mg In 410.105 94.660 58.105 Empty Bag 1 bag @ Titrate IV .Q0M [facility] Rx#: [id number] Tube Feeding 555 444 148 Other 90 60 30 Output: Urine 1425 1725 800 Other: Voiding Method Indwelling Catheter Indwelling Catheter Indwelling Catheter # Bowel Movements 1 ABP, PAP, CO, CI - Last Documented Arterial Blood Pressure 136/53 - Exam No acute distress, sedated and paralyzed, with a tracheostomy tube and PEG tube in place. The patient is sedated and paralyzed synchronous with the mechanical ventilator. No breathing effort have been noted. No evidence of any significance of previous emphysema involving the face or neck or chest area. HEENT examination is grossly unremarkable. Mucous membranes are moist. Tracheostomy tube in place and the patient is an extra long Shiley tracheostomy tube #8. Neck supple. Full range of motion. No adenopathy thyromegaly or neck vein distention. Cardiovascular Cardiac exam revealed the PMI to be normally situated and sized. The rhythm was regular and no extrasystoles were noted during several minutes of auscultation. The first and second heart sounds were normal and physiologic splitting of the second heart sound was noted. There were no murmurs, rubs, clicks, or gallops. Lungs reveal coarse diffuse bilateral inspiratory and expiratory rhonchi and wheezes. No crackles are noted. Breath sounds equal bilaterally. Breath sounds are bit more closely than yesterday's exam. Subcutaneous emphysema is much improved, nearly recovered Abdomen soft and bowel sounds are heard. No masses or tenderness. PEG tube noted. Extremities are intact. No cyanosis clubbing or edema. SkinExamination of the skin revealed no evidence of significant rashes, suspicious appearing nevi or other concerning lesions. Neurologic examination is very difficult to assess given the fact that he is on propofol at 70 mcg/kg/m and Nimbex at 3 mics per kilogram per minute. - Labs CBC & Chem 7: 09/23/18 04:10 09/23/18 04:10 Labs: Abnormal Lab Results - Last 24 Hours (Table) 09/22/18 09/22/18 09/22/18 Range/Units 12:09 17:31 18:33 WBC (3.8-10.6) k/uL RBC (4.30-5.90) m/uL MCV (80.0-100.0) fL Plt Count (150-450) k/uL Neutrophils # (1.3-7.7) k/uL Lymphocytes # (1.0-4.8) k/uL ABG pCO2 (35-45) mmHg ABG pO2 (83-108) mmHg ABG HCO3 (21-25) mmol/L ABG Total CO2 (19-24) mmol/L ABG O2 Saturation (94-97) % Carbon Dioxide (22-30) mmol/L BUN (9-20) mg/dL Creatinine (0.66-1.25) mg/dL Glucose (74-99) mg/dL POC Glucose (mg/dL) 162 H 144 H (75-99) mg/dL Magnesium 2.4 H (1.6-2.3) mg/dL 09/22/18 09/23/18 09/23/18 Range/Units 23:47 04:10 04:10 WBC 20.1 H (3.8-10.6) k/uL RBC 3.97 L (4.30-5.90) m/uL MCV 104.1 H (80.0-100.0) fL Plt Count 111 L (150-450) k/uL Neutrophils # 19.0 H (1.3-7.7) k/uL Lymphocytes # 0.2 L (1.0-4.8) k/uL ABG pCO2 (35-45) mmHg ABG pO2 (83-108) mmHg ABG HCO3 (21-25) mmol/L ABG Total CO2 (19-24) mmol/L ABG O2 Saturation (94-97) % Carbon Dioxide 40 H (22-30) mmol/L BUN 47 H (9-20) mg/dL Creatinine 0.47 L (0.66-1.25) mg/dL Glucose 168 H (74-99) mg/dL POC Glucose (mg/dL) 183 H (75-99) mg/dL Magnesium (1.6-2.3) mg/dL 09/23/18 09/23/18 Range/Units 05:38 05:40 WBC (3.8-10.6) k/uL RBC (4.30-5.90) m/uL MCV (80.0-100.0) fL Plt Count (150-450) k/uL Neutrophils # (1.3-7.7) k/uL Lymphocytes # (1.0-4.8) k/uL ABG pCO2 61 H (35-45) mmHg ABG pO2 63 L (83-108) mmHg ABG HCO3 42 H* (21-25) mmol/L ABG Total CO2 44 H (19-24) mmol/L ABG O2 Saturation 92.6 L (94-97) % Carbon Dioxide (22-30) mmol/L BUN (9-20) mg/dL Creatinine (0.66-1.25) mg/dL Glucose (74-99) mg/dL POC Glucose (mg/dL) 157 H (75-99) mg/dL Magnesium (1.6-2.3) mg/dL Microbiology - Last 24 Hours (Table) 09/22/18 10:20 Gram Stain - Preliminary Bronchial Washings - Right Bronchial Washings Culture - Preliminary 09/22/18 10:20 Fungal Culture - Preliminary Bronchial Washings - Right Assessment and Plan Plan: Assessment 1 Acute hypoxic/hypercapnic respiratory failure, secondary to COPD exacerbation. The patient had failed to wean and the patient required tracheostomy tube insertion for failure to wean. The chest x-ray findings from today shows improvement in aeration of the right lower lobe. The patient is post bronchoscopy and therapeutic it was suctioning and removal of mucous plugs and there is improved aeration in the right lung base. Oxidation however remains unchanged. 2 Status post bronchoscopy for sampling of the lower respiratory tract and removal of airway secretions on 09/13/2018, and subsequently the bronchoscope was repeated on 09/22/2018 and the patient will be taken off antibiotics pending further cultures. Therapeutic it was suctioning was done. Following the second bronchoscopy, there is improvement in the right lower lobe opacity and the patient is undergoing chest PT and percussion through the hospital bed. 3 Status post tracheostomy and PEG tube placement on 09/17/2018. 4 Massive subcutaneous emphysema and pneumomediastinum, post blood patch, and the patient is still showing minimal amount of leak based on the return volumes on the mechanical ventilator. Nevertheless, subcutaneous emphysema has nearly, and the patient is returning his volumes back without any major difficulties. 5 Severe end-stage COPD 6 History of chronic and ongoing tobacco dependence 7 Severe ischemic cardiomyopathy with ejection fraction of 20-25% 8 History of noncompliance with medications and follow-ups 9 Previous history of respiratory failure with ventilator dependence 10 Coronary artery disease, status post stent placements in the right coronary artery and circumflex coronary artery 11 History of nonsustained ventricular tachycardia 12 History of DVT 13 Status post fem-fem bypass for peripheral vascular disease 14 History of essential hypertension 15 History of hyperlipidemia PLAN She is a PEEP up to 14. Keep the FiO2 at 70%. Keep the respiratory rate of 26. Keep the tidal volume of 400. Awaiting the results of the bronchioloalveolar lavage was collected yesterday. Keep the patient on no antibiotics for now monitoring his fever pattern and will add antibiotics should there be any microbial growth in his bronchial lavage. Continue enteral feeding for nutritional support. Chest PT. Keep him a sedation and paralytics have already been discontinued. This will be a difficult to wean. The patient is still requiring higher PEEP and FiO2. Oxidation is not improved and I think is pretty much related to a significantly atelectatic changes in the lung bases bilaterally. No signs of any fluid overload. Continue the rest of the supportive care. Family was updated on his condition. We'll continue to follow. Repeat blood gases will be done. This is a critically care evaluation done in more than 30 minutes. Time with Patient: Greater than 30
[2018-09-23 12:28] LABS: Glucose,Whole Blood 156 mg/dL (75-99)
[2018-09-23 12:47] LABS: ABG Base Excess 19.5 mmol/L; ABG Oxygen Saturation 96.2 % (94-97); ABG PCO2 61 mmHg (35-45); ABG PH 7.46 (7.35-7.45); ABG PO2 78 mmHg (83-108); ABG TCO2 45 mmol/L (19-24)
[2018-09-23 12:51] LABS: ABG HCO3 43 mmol/L (21-25)
[2018-09-23] MEDS: HYDROmorphone 1 MG/ML 1 ML SYRINGE IVP PRN (13:16)
[2018-09-23 18:24] LABS: Glucose,Whole Blood 196 mg/dL (75-99)
[2018-09-23] MEDS: ATORVASTATIN 20 MG TAB PO SCH (20:31)
--- NOTE | 2018-09-23 20:32 | PN ---
PROGRESS NOTE DATE OF SERVICE: September 23, 2018. PRESENTING COMPLAINT: Intubated. INTERVAL HISTORY: The patient has advanced COPD in a smoker, CHF exacerbation, presented with the same. Remains in ICU, intubated, status post bronchoscopy again 2 days ago, has a PEG and a tracheostomy tube, also status post pneumomediastinum and surgical emphysema. The patient remains on the ventilator. FiO2 70 and a PEEP of 12. Telemetry shows sinus rhythm. Tube feeding is in place and drips include Diprivan. The patient is arousable. REVIEW OF SYSTEMS: Cannot be done, patient is intubated. CURRENT MEDICATIONS: Reviewed that include IV Diprivan. EXAMINATION: VITAL SIGNS: Afebrile, pulse 64, respiration 27, blood pressure 122/48, pulse ox 96 percent on ventilator. GENERAL APPEARANCE: Lying in bed, intubated. EYES: Pupils equal. Conjunctivae normal. HEENT: External appearance of nose and ears normal. Oral cavity dry. NECK: Tracheostomy in place. JVD unable to assess. RESPIRATORY: Effort increased. LUNGS: Decreased breath sounds. CARDIOVASCULAR: 1st and 2nd sounds normal. No edema. ABDOMEN: Soft, nontender. Liver and spleen not palpable. NEUROLOGICAL: Pupils equal. Gag is present. INVESTIGATIONS: Blood gases noted. ASSESSMENT: 1. Acute severe chronic obstructive pulmonary disease exacerbation in a current smoker, slow to respond. 2. Status post bronchoscopy times two including on September 22. 3. Chronic nicotine dependence, patient is a cigarette smoker. 4. Acute on chronic congestive heart failure exacerbation from systolic dysfunction, ejection fraction 20%. 5. Acute hypoxic respiratory failure from underlying chronic obstructive pulmonary disease. The patient remains on ventilator assistance. 6. Coronary artery disease with stent in 2013. 7. Peripheral artery disease with fem-fem bypass. 8. Hyperlipidemia. 9. Essential hypertension. 10.Restless legs syndrome. 11.Chronic rotator cuff injury. 12.Gastroesophageal reflux disease. 13.Status post tracheostomy and PEG tube with feeding, status post bronchoscopy x2. 14.Iatrogenic pneumomediastinum, improved. PLAN: Continue current medication and treatment plan. Antibiotics, bronchodilator and steroids to continue. The patient microbiology showing some Amy glabrata. Prognosis remains guarded. MMODL / IJN: [id number] /
[2018-09-24 00:08] LABS: Glucose,Whole Blood 155 mg/dL (75-99)
[2018-09-24] MEDS: SODIUM CHLORIDE 0.9% 1,000 ML IV SCH ×2 (00:08→11:26)
[2018-09-24] MEDS: methylPREDNISolone SOD SUCCI 125 MG/2 ML VIAL IV SCH ×5 (00:12→23:57)
[2018-09-24] MEDS: INSULIN ASPART 100 UNIT/ML 1 ML 10 ML VIAL SQ SCH ×5 (00:12→23:57)
[2018-09-24] MEDS: IPRATROPIUM-ALBUTEROL 3 ML NEB INHALATION SCH ×6 (03:17→23:11)
[2018-09-24 04:39] LABS: ABG Base Excess 20.7 mmol/L; ABG PH 7.38 (7.35-7.45); ABG PO2 79 mmHg (83-108); ABG TCO2 48 mmol/L (19-24)
[2018-09-24 05:02] LABS: Basophils % (A) 0 %; Eosinophils % (A) 0 %; HCT 41.5 % (39.0-53.0); HGB 13.2 gm/dL (13.0-17.5); Lymphocytes # (A) 0.2 k/uL (1.0-4.8); Lymphocytes % (A) 1 %; MCH 33.2 pg (25.0-35.0); MCHC 31.8 g/dL (31.0-37.0); MCV 104.1 fL (80.0-100.0); Macrocytosis Slight; Mean Platelet Volume 8.7; Monocytes # (A) 0.6 k/uL (0-1.0); Monocytes % (A) 3 %; Neutrophils # (A) 18.4 k/uL (1.3-7.7); Neutrophils % (A) 96 %; Platelet Count 101 k/uL (150-450); RBC 3.98 m/uL (4.30-5.90); RDW 13.1 % (11.5-15.5); WBC 19.3 k/uL (3.8-10.6)
[2018-09-24 05:10] LABS: Blood Urea Nitrogen 48 mg/dL (9-20); Calcium 8.5 mg/dL (8.4-10.2); Chloride 98 mmol/L (98-107); Glucose 175 mg/dL (74-99); Magnesium 2.5 mg/dL (1.6-2.3); Potassium 3.9 mmol/L (3.5-5.1); Sodium 141 mmol/L (137-145)
[2018-09-24 05:16] LABS: Anion Gap -2 mmol/L
[2018-09-24 05:46] LABS: Glucose,Whole Blood 192 mg/dL (75-99)
[2018-09-24 06:11] LABS: Carbon Dioxide 45 mmol/L (22-30)
[2018-09-24] MEDS ORDERED: POTASSIUM BICARBONATE/CIT AC 20 MEQ TABLET.EFF NG-TUBE SCH ×2 (07:00→22:00)
--- NOTE | 2018-09-24 07:21 | XR ---
EXAMINATION TYPE: XR chest 1V portable DATE OF EXAM: 09/24/2018 HISTORY: Shortness of breath. COMPARISON: 09/23/2018 TECHNIQUE: Single view of the chest is submitted. FINDINGS: Demonstrated are scattered senescent parenchymal change. Right lower lobe patchy infiltrate and small effusion persists. Tracheostomy tube unchanged. The heart is stable. Hilar and mediastinal structures are within normal limits. Degenerative changes are seen of the dorsal spine. IMPRESSION: 1. Stable chest.
[2018-09-24] MEDS: BUDESONIDE 1 MG/2 ML NEBU INHALATION SCH ×2 (07:48→19:16)
[2018-09-24] MEDS: FORMOTEROL FUMARATE 20 MCG/2 ML NEBU INHALATION SCH ×2 (07:48→19:16)
[2018-09-24] MEDS: FUROSEMIDE 10 MG/ML 4 ML VIAL IV SCH ×2 (07:59→21:40)
[2018-09-24] MEDS: LISINOPRIL 2.5 MG TAB PO SCH ×2 (07:59→21:41)
[2018-09-24] MEDS: METOPROLOL TARTRATE 25 MG TAB PO SCH ×2 (07:59→21:41)
[2018-09-24] MEDS: CHLORHEXIDINE GLUCONATE 15 ML CUP MUCOUS MEM SCH ×2 (07:59→21:40)
[2018-09-24] MEDS: FAMOTIDINE 20 MG/2 ML VIAL IV SCH ×2 (07:59→21:45)
[2018-09-24] MEDS: ASPIRIN 81 MG PO SCH (07:59)
[2018-09-24] MEDS: NICOTINE 21MG/24HR PATCH TRANSDERM SCH (07:59)
[2018-09-24] MEDS: ENOXAPARIN 40 MG/0.4 ML SYRINGE SQ SCH (07:59)
[2018-09-24] MEDS: PROPOFOL 1,000 MG in EMPTY BAG 1 BAG IV SCH ×2 (08:00→20:10)
--- NOTE | 2018-09-24 09:22 | CDI ---
Last Revision, October 2017 Documentation Clarification Form Date: 09/22/2018 8:32:00 AM From: Mera Garay Admit Date: 09/10/2018 12:12:00 AM Patient Name: Hanesl Dougherty Visit Number: [id number] ATTENTION: The Clinical Documentation Specialists (CDI) and [facility] Coding Staff appreciate your assistance in clarifying documentation. Please respond to the clarification below the line at the bottom and electronically sign. The CDI & [facility] Coding staff will review the response and follow-up if needed. Please note: Queries are made part of the Legal Health Record. If you have any questions, please contact the author of this message via ITS. Percy Hassan , DO, Can you please render your opinion on the following documentation? Blood patch is documented in the PN dated 09/21. Also charted in PN on 09/21: The patient's course was complicated by development of a air leak for which she was followed up by Dr. Baptiste and the patient underwent a blood patch. Massive subcutaneous emphysema and pneumomediastinum, post blood patch, and the patient is still showing minimal amount of leak based on the return volumes on the mechanical ventilator. Patients Admitting Diagnosis: ACUTE exacerbation of COPD, and respiratory failure Post-Operative Diagnosis: subcutaneous emphysema post tracheostomy with air leak Procedure performed: bronchoscopy and adjustment of trach tube History/Risk Factors: PAD, hyperlipidemia, COPD, CHF, smoker, HTN, CAD, DVT Clinical Indicators: Notes in chart as stated above Treatment: Blood patch Consults: Dr Baptiste In order to accurately reflect this patients severity of illness, please clarify if the post-operative diagnosis is: An expected post-procedural or post-surgical condition; Integral to the procedure; Inherent to the procedure; An unexpected post-procedural or post-surgical condition related to surgical care; Other, please specify Unable to determine MTDD
[2018-09-24] MEDS: HYDROmorphone 1 MG/ML 1 ML SYRINGE IVP PRN ×4 (09:40→21:30)
[2018-09-24 11:31] LABS: Glucose,Whole Blood 167 mg/dL (75-99)
[2018-09-24 11:37] LABS: ABG Base Excess 22.6 mmol/L; ABG Oxygen Saturation 92.4 % (94-97); ABG PH 7.41 (7.35-7.45); ABG PO2 65 mmHg (83-108); ABG TCO2 50 mmol/L (19-24)
[2018-09-24 11:41] LABS: ABG PCO2 75 mmHg (35-45)
--- NOTE | 2018-09-24 15:09 | P.PN ---
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 tach, DVT, peripheral vascular disease with previous fem-fem bypass surgery, hypertension and hyperlipidemia, who is currently in the intensive care unit intubated on a mechanical ventilator. The patient was admitted again to the hospital because of acute respiratory failure and he was admitted on 09/10/2018. He failed to wean and subsequently he underwent a tracheostomy and a PEG tube insertion. The patient's course was complicated by development of a air leak for which she was followed up by Dr. Baptiste and the patient underwent a blood patch. During the course of his treatment, the patient developed massive subcutaneous emphysema and pneumomediastinum without pneumothorax. This was managed conservatively. This morning, the patient is sedated and paralyzed. I have him on a assist- control mode of ventilation with a tidal volume of 500, FiO2 of 100%, PEEP of 15 and the respiratory rate of 22. Morning blood gases showed a pH of 7.37 with a pCO2 of 56 and pO2 of 74. His peak airway pressure was around 38. He static pressure is 26. Chest x-ray shows hyperinflation and there is lower lobe haziness bilaterally more so on the right and there is no evidence of any pneumothorax. The patient has diminished breath sounds bilaterally. Breath sounds are equal and symmetrical and there is no significant bronchospasm and wheezing. As mentioned, his foot is sedated and Diprivan is running at 70 mics per KG per minute and the patient is also paralyzed with Nimbex. He is on IV fluids at 75 mL an hour of normal saline and the patient was receiving also Lasix 20 mg IV push every 12 hours. He is afebrile. He is on accommodation Rocephin and Zithromax and his been on the same antibiotic coverage for the past 1 week at least. No positive cultures have been obtained during this current hospitalization. White cell count is at 17.2. His cardiac rhythm is sinus. No significant arrhythmias have been noted. Rest of the blood work including the electrodes and the renal function are all within normal limits. He remains on bronchodilators with DuoNeb nebulized treatment [id number], he is on IV Solu-Medrol 60 mg every 6 hours. He is also on a combination of Perforomist and Pulmicort neb last treatment twice a day. Rest of the medication were all reviewed. He is receiving enteral feeding via PEG tube and the exit site is clean and the patient is able to tolerate the tube feeds without any major difficulties and he is currently at goal at 45 mL an hour of vital high protein. He has an adequate urine output is producing approximately 50-60 an hour. Nevertheless, his net fluid balance has been persistent positive being 1.6 L positive on 09/18/2018, 1 L positive on 09/19/2018, 4 L positive on 09/20/2018 and another 2.4 L positive since earlier this morning. I noticed that the patient is at least 3 kg heavier in weight compared to 2017. On 09/22/2000 Seeing this patient for a follow-up. This patient is post ventilator-dependent respiratory failure secondary to COPD exacerbation. He was sedated and paralyzed. CAT scan of the chest was done yesterday that showed emphysema involving the upper lobes bilaterally. There was extensive atelectatic change the lung bases more so on the right. Small bilateral pleural effusion with also seen however these were essentially small and the predominant abnormality was the significant atelectatic changes and consolidation of the lung bases bilaterally. The patient is morning is on a combination of Diprivan and Nimbex for sedation. The patient is intubated on a mechanical ventilator. Based on my yesterday's evaluation, I dropped a PEEP down to 10 and FiO2 at 60% with a tidal volume of 400 and the rate of 26. The peak air pressure from this morning was 28. Static pressure was around 16. The blood gases from earlier showed a pH of 7.38 with a pCO2 of 62 and pO2 of 64 and this was done and FiO2 of 70%. Chest x-ray still showing opacification lung bases bilaterally. Based on this, I performed a bronchoscopy during which there was some mucous plugs identified in the lower lobes bilaterally more so on the right and therapeutic it was suctioning was done and the bronchial aspirate was sent for microbial analysis and cultures. The patient was also taken off antibiotics knowing that the patient has been covered with the same antibiotics for almost a week and is included a combination of Rocephin and Zithromax. He remains on accommodation broncho-dilators steroids. He is tolerating his tube feeds. He is hemodynamically stable. Is afebrile. No significant subcu EMPHYSEMA. White cell count stable at 20.5. Hemoglobin stable at 13.6. On 09/23/2018, the patient is off paralytics and he remains sedated, comfortable on a mechanical ventilator. Earlier this morning he is vent setting included a PEEP of 10 with an FiO2 of 70% and a tidal volume of 400 and the rate of 26. Chest x-ray showed improvement in the right lower lobe pulmonary infiltrate/opacity. Note that the patient underwent a bronchoscopy yesterday and therapeutic it was suctioning was done and mucous plugs were removed and the lung bases bilaterally. Cultures were also sent and the results are still pending for now. Brando this improvement, the patient's blood gases did not show marked improvement in oxygenation. The pH is 7.45 with a pCO2 of 61 and pO2 of 53. I tried to go with higher tidal volume yet this failed knowing that this. The patient's oxygenation and the patient became alkalotic. I put him back on a PEEP of 14 with an FiO2 of 70% tidal volume of 400 with a rate of 26. The patient is currently sedated, comfortable recurrence with a mechanical ventilator and the patient is not showing any agitation or restlessness. No evidence of any subcutaneous emphysema. Hemodynamically stable. White cell count is at 20. The patient on no antibiotics for now. Tolerating his tube feeds. His renal function is stable. Rest of the electrolytes are all within normal limits and the patient has a component of metabolic alkalosis which is compensatory to his chronic hypercapnic respiratory failure. On 09/24/2018, the patient is being seen for a follow-up. The patient remains intubated on mechanical ventilated off paralytics. The patient is on Diprivan. Earlier this morning, I had the patient on FiO2 of 60% with a PEEP of 12 and a tidal volume of 400 with a rate of 26. Chest x-ray shows no major interval change. Bronchoscopy and bronchial lavage was done 2 days ago and the cultures of been all negative thus far. Unfortunately, there has been no major improvement in patient's oxygenation. The blood gases that was done earlier this morning showed a pH of 7.38 with a pCO2 of 78 and pO2 of 79. The FiO2 was gradually weaned down from 60% to 40% and follow-up blood gases showed a pH of 7.41 with a pCO2 of 75 and pO2 of 65 while the patient being on 40% FiO2. No fever. No chills. Tolerating diet. The patient is receiving enteral feeding for nutritional support. I'm in the process of getting this patient a sedation holiday. The patient will be gradually weaned off. Patient is producing adequate amount of urine output. Afebrile. No other significant events overnight. Objective - Vital Signs Vital signs: Vital Signs Temp 98.3 F 09/24/18 12:00 Pulse 60 09/24/18 13:00 Resp 26 H 09/24/18 13:00 BP 132/69 09/23/18 18:00 Pulse Ox 95 09/24/18 13:00 Intake & Output 09/23/18 09/24/18 09/24/18 18:59 06:59 18:59 Intake Total 891.105 913 629.197 Output Total 1730 1845 1245 Balance -838.895 -932 -615.803 Weight 92.5 kg 92.5 kg Intake: IV 266 166 161 Pressure bag of 0.9 NaCl- 36 36 21 Sodium Chloride 0.9% 1, 230 130 140 000 ml @ 20 mls/hr IV . Q24H [facility] Rx#:[id number] Intake, IV Titration 158.105 100 38.197 Amount Propofol 1,000 mg In 158.105 100 38.197 Empty Bag 1 bag @ Titrate IV .Q0M [facility] Rx#: [id number] Tube Feeding 407 557 370 Other 60 90 60 Output: Urine 1730 1845 1245 Other: Voiding Method Indwelling Catheter Indwelling Catheter Indwelling Catheter ABP, PAP, CO, CI - Last Documented Arterial Blood Pressure 150/57 - Exam No acute distress, sedated and paralyzed, with a tracheostomy tube and PEG tube in place. The patient is sedated and paralyzed synchronous with the mechanical ventilator. No breathing effort have been noted. No evidence of any significance of previous emphysema involving the face or neck or chest area. HEENT examination is grossly unremarkable. Mucous membranes are moist. Tracheostomy tube in place and the patient is an extra long Shiley tracheostomy tube #8. Neck supple. Full range of motion. No adenopathy thyromegaly or neck vein distention. Cardiovascular Cardiac exam revealed the PMI to be normally situated and sized. The rhythm was regular and no extrasystoles were noted during several minutes of auscultation. The first and second heart sounds were normal and physiologic splitting of the second heart sound was noted. There were no murmurs, rubs, clicks, or gallops. Lungs reveal coarse diffuse bilateral inspiratory and expiratory rhonchi and wheezes. No crackles are noted. Breath sounds equal bilaterally. Breath sounds are bit more closely than yesterday's exam. Subcutaneous emphysema is much improved, nearly recovered Abdomen soft and bowel sounds are heard. No masses or tenderness. PEG tube noted. Extremities are intact. No cyanosis clubbing or edema. SkinExamination of the skin revealed no evidence of significant rashes, suspicious appearing nevi or other concerning lesions. Neurologic examination is very difficult to assess given the fact that he is on propofol at 70 mcg/kg/m and Nimbex at 3 mics per kilogram per minute. - Labs CBC & Chem 7: 09/24/18 04:15 09/24/18 04:15 Labs: Abnormal Lab Results - Last 24 Hours (Table) 09/23/18 09/24/18 09/24/18 Range/Units 18:20 00:07 04:15 WBC 19.3 H (3.8-10.6) k/uL RBC 3.98 L (4.30-5.90) m/uL MCV 104.1 H (80.0-100.0) fL Plt Count 101 L (150-450) k/uL Neutrophils # 18.4 H (1.3-7.7) k/uL Lymphocytes # 0.2 L (1.0-4.8) k/uL ABG pCO2 (35-45) mmHg ABG pO2 (83-108) mmHg ABG HCO3 (21-25) mmol/L ABG Total CO2 (19-24) mmol/L ABG O2 Saturation (94-97) % Carbon Dioxide (22-30) mmol/L BUN (9-20) mg/dL Creatinine (0.66-1.25) mg/dL Glucose (74-99) mg/dL POC Glucose (mg/dL) 196 H 155 H (75-99) mg/dL Magnesium (1.6-2.3) mg/dL 09/24/18 09/24/18 09/24/18 Range/Units 04:15 04:38 05:44 WBC (3.8-10.6) k/uL RBC (4.30-5.90) m/uL MCV (80.0-100.0) fL Plt Count (150-450) k/uL Neutrophils # (1.3-7.7) k/uL Lymphocytes # (1.0-4.8) k/uL ABG pCO2 78 H* (35-45) mmHg ABG pO2 79 L (83-108) mmHg ABG HCO3 46 H* (21-25) mmol/L ABG Total CO2 48 H (19-24) mmol/L ABG O2 Saturation (94-97) % Carbon Dioxide 45 H* (22-30) mmol/L BUN 48 H (9-20) mg/dL Creatinine 0.47 L (0.66-1.25) mg/dL Glucose 175 H (74-99) mg/dL POC Glucose (mg/dL) 192 H (75-99) mg/dL Magnesium 2.5 H (1.6-2.3) mg/dL 09/24/18 09/24/18 Range/Units 11:29 11:35 WBC (3.8-10.6) k/uL RBC (4.30-5.90) m/uL MCV (80.0-100.0) fL Plt Count (150-450) k/uL Neutrophils # (1.3-7.7) k/uL Lymphocytes # (1.0-4.8) k/uL ABG pCO2 75 H* (35-45) mmHg ABG pO2 65 L (83-108) mmHg ABG HCO3 47 H* (21-25) mmol/L ABG Total CO2 50 H (19-24) mmol/L ABG O2 Saturation 92.4 L (94-97) % Carbon Dioxide (22-30) mmol/L BUN (9-20) mg/dL Creatinine (0.66-1.25) mg/dL Glucose (74-99) mg/dL POC Glucose (mg/dL) 167 H (75-99) mg/dL Magnesium (1.6-2.3) mg/dL Assessment and Plan Plan: Assessment 1 Acute hypoxic/hypercapnic respiratory failure, secondary to COPD exacerbation. The patient is failure to wean. The patient has a tracheostomy tube in place. Still having difficulties with oxygenation and the patient is on 12 of PEEP with an FiO2 gradually being weaned down to 40% and this was done upon repeated blood gas monitoring. Unable to wean down the PEEP any further at this point in time. Chest exit shows some improvement in aeration of the lung bases especially on the right. No evidence of pneumonia. Bronchoscopy and bronchial lavage showed no microbial growth and the patient is currently on no antibiotics. I'll evidence of any air leak while the patient is being mechanically ventilated. No subcutaneous emphysema. The patient is concerning his lung volumes effectively. 2 Status post bronchoscopy for sampling of the lower respiratory tract and removal of airway secretions on 09/13/2018, and subsequently the bronchoscope was repeated on 09/22/2018 and the patient has negative cultures for now.. Therapeutic airway suctioning was done. Following the second bronchoscopy, there is improvement in the right lower lobe opacity and the patient is undergoing chest PT and percussion through the hospital bed. 3 Status post tracheostomy and PEG tube placement on 09/17/2018. 4 Massive subcutaneous emphysema and pneumomediastinum, post blood patch, and the patient is still showing minimal amount of leak based on the return volumes on the mechanical ventilator. Nevertheless, subcutaneous emphysema has nearly, and the patient is returning his volumes back without any major difficulties. 5 Severe end-stage COPD 6 History of chronic and ongoing tobacco dependence 7 Severe ischemic cardiomyopathy with ejection fraction of 20-25% 8 History of noncompliance with medications and follow-ups 9 Previous history of respiratory failure with ventilator dependence 10 Coronary artery disease, status post stent placements in the right coronary artery and circumflex coronary artery 11 History of nonsustained ventricular tachycardia 12 History of DVT 13 Status post fem-fem bypass for peripheral vascular disease 14 History of essential hypertension 15 History of hyperlipidemia PLAN The patient's FiO2 has been weaned down to 40%. We'll gradually wean down the PEEP. No need for antibiotic coverage. The patient completed a course of Rocephin and Zithromax. Repeated. Cultures of been negative. Continue chest PT. Percussion to his chest. Vent support. Enterofeeding production support. Bronchodilators. Steroids. Sedation holiday. Prognosis poor. We'll continue to follow make further recommendations. Unfortunately, unable to fix this patient's oxygenation. CT angios the chest showed no evidence of any pulmonary embolism. No evidence of pneumonia. No signs of fluid overload. Atelectatic changes were seen more so on the right. Bronchoscopy was done. Cultures of been all negative. This could need a gradually wean. We'll follow. Family was updated. evaluation was done in >30mmin. Time with Patient: Greater than 30
[2018-09-24] MEDS ORDERED: ARTIFICIAL TEARS-HYPROMELLOSE DROPS 15 ML BTL BOTH EYES PRN (15:29)
[2018-09-24 16:12] LABS: Glucose,Whole Blood 141 mg/dL (75-99)
[2018-09-24] MEDS: ARTIFICIAL TEARS-HYPROMELLOSE DROPS 15 ML BTL BOTH EYES SCH ×2 (18:24→21:48)
[2018-09-24 18:25] LABS: Glucose,Whole Blood 134 mg/dL (75-99)
[2018-09-24 20:28] LABS: Blood Urea Nitrogen 50 mg/dL (9-20); Calcium 8.6 mg/dL (8.4-10.2); Chloride 98 mmol/L (98-107); Glucose 171 mg/dL (74-99); Magnesium 2.4 mg/dL (1.6-2.3); Phosphorus 3.1 mg/dL (2.5-4.5); Potassium 3.9 mmol/L (3.5-5.1); Sodium 143 mmol/L (137-145)
[2018-09-24 20:34] LABS: Anion Gap -2 mmol/L
[2018-09-24 20:51] LABS: Carbon Dioxide 47 mmol/L (22-30)
[2018-09-24] MEDS ORDERED: POTASSIUM CHLORIDE 10 MEQ in WATER FOR INJECTION 1 100ML.BAG IVPB SCH (21:30)
[2018-09-24] MEDS: ATORVASTATIN 20 MG TAB PO SCH (21:40)
[2018-09-24] MEDS: CISATRACURIUM 200 MG in SODIUM CHLORIDE 0.9% 180 ML IV SCH (21:45)
[2018-09-24] MEDS: INSULIN DETEMIR 100 UNIT/ML 10 ML VIAL SQ SCH (21:48)
[2018-09-24 21:49] LABS: Glucose,Whole Blood 177 mg/dL (75-99)
[2018-09-24 23:35] LABS: Glucose,Whole Blood 160 mg/dL (75-99)
[2018-09-25] MEDS: PROPOFOL 1,000 MG in EMPTY BAG 1 BAG IV SCH ×5 (01:06→18:53)
[2018-09-25 02:09] LABS: Glucose,Whole Blood 145 mg/dL (75-99)
[2018-09-25] MEDS: IPRATROPIUM-ALBUTEROL 3 ML NEB INHALATION SCH ×6 (03:18→23:16)
[2018-09-25 04:33] LABS: Blood Urea Nitrogen 51 mg/dL (9-20); Calcium 8.9 mg/dL (8.4-10.2); Chloride 96 mmol/L (98-107); Glucose 176 mg/dL (74-99); Magnesium 2.5 mg/dL (1.6-2.3); Phosphorus 3.3 mg/dL (2.5-4.5); Potassium 4.1 mmol/L (3.5-5.1); Sodium 142 mmol/L (137-145)
[2018-09-25 04:34] LABS: Basophils % (A) 0 %; Eosinophils % (A) 0 %; HCT 44.5 % (39.0-53.0); Lymphocytes # (A) 0.3 k/uL (1.0-4.8); Lymphocytes % (A) 2 %; MCH 32.8 pg (25.0-35.0); MCHC 31.4 g/dL (31.0-37.0); MCV 104.5 fL (80.0-100.0); Macrocytosis Slight; Mean Platelet Volume 8.1; Monocytes # (A) 0.6 k/uL (0-1.0); Monocytes % (A) 3 %; Neutrophils # (A) 17.5 k/uL (1.3-7.7); Neutrophils % (A) 95 %; Platelet Count 103 k/uL (150-450); RBC 4.26 m/uL (4.30-5.90); RDW 13.2 % (11.5-15.5); WBC 18.4 k/uL (3.8-10.6)
[2018-09-25] MEDS: HYDROmorphone 1 MG/ML 1 ML SYRINGE IVP PRN ×4 (04:38→20:37)
[2018-09-25 04:39] LABS: Anion Gap -1 mmol/L
[2018-09-25 04:58] LABS: Carbon Dioxide 47 mmol/L (22-30)
[2018-09-25 05:23] LABS: ABG Oxygen Saturation 89.6 % (94-97); ABG PCO2 70 mmHg (35-45); ABG PH 7.46 (7.35-7.45); ABG TCO2 51 mmol/L (19-24)
[2018-09-25 05:49] LABS: Glucose,Whole Blood 156 mg/dL (75-99)
[2018-09-25] MEDS: methylPREDNISolone SOD SUCCI 125 MG/2 ML VIAL IV SCH ×4 (05:51→23:46)
[2018-09-25] MEDS: INSULIN ASPART 100 UNIT/ML 1 ML 10 ML VIAL SQ SCH ×4 (05:51→23:45)
--- NOTE | 2018-09-25 07:00 | XR ---
EXAMINATION TYPE: XR chest 1V portable DATE OF EXAM: 09/25/2018 CLINICAL HISTORY: Difficulty breathing progress study. TECHNIQUE: 2 AP portable semiupright views of the chest are obtained. COMPARISON: Chest x-ray from one day earlier and older studies FINDINGS: Tracheostomy tube is redemonstrated. There is chronic parenchymal change with persistent r ight greater than left bibasilar opacity and tiny bilateral pleural effusions. Upper lungs remain dino ar without pneumothorax. Cardiac silhouette size is stable and within normal limits with atherosclero tic thoracic aorta. Osseous structures are intact. IMPRESSION: Overall stable findings, chronic parenchymal change with tiny bilateral pleural effusio ns and patchy right greater than left bibasilar atelectasis and/or infiltrate.
[2018-09-25] MEDS: FORMOTEROL FUMARATE 20 MCG/2 ML NEBU INHALATION SCH ×2 (07:31→19:17)
[2018-09-25] MEDS: BUDESONIDE 1 MG/2 ML NEBU INHALATION SCH ×2 (07:31→19:17)
[2018-09-25] MEDS: LISINOPRIL 2.5 MG TAB PO SCH ×2 (07:41→20:39)
[2018-09-25] MEDS: METOPROLOL TARTRATE 25 MG TAB PO SCH ×2 (07:41→20:39)
[2018-09-25] MEDS: ASPIRIN 81 MG PO SCH (07:41)
--- NOTE | 2018-09-25 07:46 | PN ---
PROGRESS NOTE DATE OF SERVICE: September 24, 2018. PRESENTING COMPLAINT: Intubated. INTERVAL HISTORY: This is a patient with advanced COPD, smoker, and CHF exacerbation, presented with the same. Is in the ICU, intubated, status post bronchoscopy x2. The patient is taken off Diprivan this morning. Does seem to respond slowly. Tube feeding is maintained. Telemetry shows sinus rhythm. FiO2 40 and a PEEP of 12. REVIEW OF SYSTEMS: Patient is intubated. CURRENT MEDICATIONS: Diprivan has been held this morning. PHYSICAL EXAMINATION: VITAL SIGNS: Temperature 98.3, pulse 58, respiration 20, blood pressure 126/54, pulse ox 93 percent on vent. GENERAL APPEARANCE: Lying in bed, intubated. EYES: Conjunctivae dry. NECK: JVD unable to assess. HEENT: External appearance of nose and ears normal. Oral cavity dry. RESPIRATORY: Effort increased. LUNGS: Decreased breath sounds. CARDIOVASCULAR: 1st and 2nd sounds normal. No edema. ABDOMEN: Soft, nontender. Liver and spleen not palpable. NEUROLOGICAL: Does seem to respond to voice commands. INVESTIGATIONS: White count 9.3, hemoglobin 13.2, potassium 3.9. Blood gases noted. ASSESSMENT: 1. Acute severe chronic obstructive pulmonary disease exacerbation in a current smoker, slow to respond. 2. Status post bronchoscopy times two. 3. Chronic nicotine dependence, patient is a cigarette smoker. 4. Acute on chronic congestive heart failure exacerbation from systolic dysfunction, ejection fraction 20%. 5. Acute hypoxic respiratory failure from underlying chronic obstructive pulmonary disease. Patient remains on the ventilator for assistance. 6. Coronary artery disease with stent in 2013. 7. Peripheral artery disease, fem-fem bypass. 8. Hyperlipidemia. 9. Essential hypertension. 10.Restless legs syndrome. 11.Chronic rotator cuff injury. 12.Gastroesophageal reflux disease. 13.Status post tracheostomy and PEG tube. 14.Iatrogenic pneumomediastinum improved. PLAN: Continue current medication and treatment plan. Dr. Menjivar is following the patient closely. Other medications to continue. We will see how patient does off the Diprivan. 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 MMODL / IJN: [id number] /
[2018-09-25] MEDS: ARTIFICIAL TEARS-HYPROMELLOSE DROPS 15 ML BTL BOTH EYES SCH ×4 (08:57→20:40)
[2018-09-25] MEDS: FUROSEMIDE 10 MG/ML 4 ML VIAL IV SCH ×2 (08:57→20:40)
[2018-09-25] MEDS: FAMOTIDINE 20 MG/2 ML VIAL IV SCH ×2 (08:57→20:40)
[2018-09-25] MEDS: NICOTINE 21MG/24HR PATCH TRANSDERM SCH (08:58)
[2018-09-25] MEDS: ENOXAPARIN 40 MG/0.4 ML SYRINGE SQ SCH (08:58)
[2018-09-25] MEDS: CHLORHEXIDINE GLUCONATE 15 ML CUP MUCOUS MEM SCH ×2 (08:58→20:40)
--- NOTE | 2018-09-25 09:23 | P.PN ---
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 tach, DVT, peripheral vascular disease with previous fem-fem bypass surgery, hypertension and hyperlipidemia, who is currently in the intensive care unit intubated on a mechanical ventilator. The patient was admitted again to the hospital because of acute respiratory failure and he was admitted on 09/10/2018. He failed to wean and subsequently he underwent a tracheostomy and a PEG tube insertion. The patient's course was complicated by development of a air leak for which she was followed up by Dr. Baptiste and the patient underwent a blood patch. During the course of his treatment, the patient developed massive subcutaneous emphysema and pneumomediastinum without pneumothorax. This was managed conservatively. This morning, the patient is sedated and paralyzed. I have him on a assist- control mode of ventilation with a tidal volume of 500, FiO2 of 100%, PEEP of 15 and the respiratory rate of 22. Morning blood gases showed a pH of 7.37 with a pCO2 of 56 and pO2 of 74. His peak airway pressure was around 38. He static pressure is 26. Chest x-ray shows hyperinflation and there is lower lobe haziness bilaterally more so on the right and there is no evidence of any pneumothorax. The patient has diminished breath sounds bilaterally. Breath sounds are equal and symmetrical and there is no significant bronchospasm and wheezing. As mentioned, his foot is sedated and Diprivan is running at 70 mics per KG per minute and the patient is also paralyzed with Nimbex. He is on IV fluids at 75 mL an hour of normal saline and the patient was receiving also Lasix 20 mg IV push every 12 hours. He is afebrile. He is on accommodation Rocephin and Zithromax and his been on the same antibiotic coverage for the past 1 week at least. No positive cultures have been obtained during this current hospitalization. White cell count is at 17.2. His cardiac rhythm is sinus. No significant arrhythmias have been noted. Rest of the blood work including the electrodes and the renal function are all within normal limits. He remains on bronchodilators with DuoNeb nebulized treatment [id number], he is on IV Solu-Medrol 60 mg every 6 hours. He is also on a combination of Perforomist and Pulmicort neb last treatment twice a day. Rest of the medication were all reviewed. He is receiving enteral feeding via PEG tube and the exit site is clean and the patient is able to tolerate the tube feeds without any major difficulties and he is currently at goal at 45 mL an hour of vital high protein. He has an adequate urine output is producing approximately 50-60 an hour. Nevertheless, his net fluid balance has been persistent positive being 1.6 L positive on 09/18/2018, 1 L positive on 09/19/2018, 4 L positive on 09/20/2018 and another 2.4 L positive since earlier this morning. I noticed that the patient is at least 3 kg heavier in weight compared to 2017. On 09/22/2000 Seeing this patient for a follow-up. This patient is post ventilator-dependent respiratory failure secondary to COPD exacerbation. He was sedated and paralyzed. CAT scan of the chest was done yesterday that showed emphysema involving the upper lobes bilaterally. There was extensive atelectatic change the lung bases more so on the right. Small bilateral pleural effusion with also seen however these were essentially small and the predominant abnormality was the significant atelectatic changes and consolidation of the lung bases bilaterally. The patient is morning is on a combination of Diprivan and Nimbex for sedation. The patient is intubated on a mechanical ventilator. Based on my yesterday's evaluation, I dropped a PEEP down to 10 and FiO2 at 60% with a tidal volume of 400 and the rate of 26. The peak air pressure from this morning was 28. Static pressure was around 16. The blood gases from earlier showed a pH of 7.38 with a pCO2 of 62 and pO2 of 64 and this was done and FiO2 of 70%. Chest x-ray still showing opacification lung bases bilaterally. Based on this, I performed a bronchoscopy during which there was some mucous plugs identified in the lower lobes bilaterally more so on the right and therapeutic it was suctioning was done and the bronchial aspirate was sent for microbial analysis and cultures. The patient was also taken off antibiotics knowing that the patient has been covered with the same antibiotics for almost a week and is included a combination of Rocephin and Zithromax. He remains on accommodation broncho-dilators steroids. He is tolerating his tube feeds. He is hemodynamically stable. Is afebrile. No significant subcu EMPHYSEMA. White cell count stable at 20.5. Hemoglobin stable at 13.6. On 09/23/2018, the patient is off paralytics and he remains sedated, comfortable on a mechanical ventilator. Earlier this morning he is vent setting included a PEEP of 10 with an FiO2 of 70% and a tidal volume of 400 and the rate of 26. Chest x-ray showed improvement in the right lower lobe pulmonary infiltrate/opacity. Note that the patient underwent a bronchoscopy yesterday and therapeutic it was suctioning was done and mucous plugs were removed and the lung bases bilaterally. Cultures were also sent and the results are still pending for now. Brando this improvement, the patient's blood gases did not show marked improvement in oxygenation. The pH is 7.45 with a pCO2 of 61 and pO2 of 53. I tried to go with higher tidal volume yet this failed knowing that this. The patient's oxygenation and the patient became alkalotic. I put him back on a PEEP of 14 with an FiO2 of 70% tidal volume of 400 with a rate of 26. The patient is currently sedated, comfortable recurrence with a mechanical ventilator and the patient is not showing any agitation or restlessness. No evidence of any subcutaneous emphysema. Hemodynamically stable. White cell count is at 20. The patient on no antibiotics for now. Tolerating his tube feeds. His renal function is stable. Rest of the electrolytes are all within normal limits and the patient has a component of metabolic alkalosis which is compensatory to his chronic hypercapnic respiratory failure. On 09/24/2018, the patient is being seen for a follow-up. The patient remains intubated on mechanical ventilated off paralytics. The patient is on Diprivan. Earlier this morning, I had the patient on FiO2 of 60% with a PEEP of 12 and a tidal volume of 400 with a rate of 26. Chest x-ray shows no major interval change. Bronchoscopy and bronchial lavage was done 2 days ago and the cultures of been all negative thus far. Unfortunately, there has been no major improvement in patient's oxygenation. The blood gases that was done earlier this morning showed a pH of 7.38 with a pCO2 of 78 and pO2 of 79. The FiO2 was gradually weaned down from 60% to 40% and follow-up blood gases showed a pH of 7.41 with a pCO2 of 75 and pO2 of 65 while the patient being on 40% FiO2. No fever. No chills. Tolerating diet. The patient is receiving enteral feeding for nutritional support. I'm in the process of getting this patient a sedation holiday. The patient will be gradually weaned off. Patient is producing adequate amount of urine output. Afebrile. No other significant events overnight. On 09/25/2018, the patient is still sedated with Diprivan and still on a mechanical ventilator with essentially same vent setting without any progress over the past few days. Unable to cut down the sedation as the patient gets agitated and restless tachycardic tachypneic and desaturates once taken off sedation. Unable to further weaned off the mechanical ventilator as the patient has no much room in terms of his oxygenation. On today's evaluation is on a assist-control mode at the rate of 26 with a tidal volume of 400 with an FiO2 of 40% and a PEEP of 12. The blood care showed a pH of 7.46 with a pCO2 of 70 and pO2 57. Race on this I increased his FiO2 up to 60%. His chest x- ray shows no interval change. Tracheostomy tube is intact. No evidence of any air leak. No evidence of any subcutaneous emphysema. No fever. No chills. White cell count stable at 18.4. Electrolytes are unchanged. Unfortunately no much progress being done on this patient. I suspect that his advanced lung disease in addition to atelectatic changes in lung bases which is affecting his oxygenation and his ability to wean. He is on enteral feeding for nutritional support. He is on Lovenox for DVT prophylaxis. He is on IV Solu Medrol addition to a combination of bronchodilators and inhaled corticosteroids. He is receiving enteral feeding for nutritional support. Objective - Vital Signs Vital signs: Vital Signs Temp 97.2 F L 09/25/18 08:00 Pulse 80 09/25/18 09:00 Resp 26 H 09/25/18 09:00 BP 132/69 09/23/18 18:00 Pulse Ox 89 L 09/25/18 09:00 Intake & Output 09/24/18 09/25/18 09/25/18 18:59 06:59 18:59 Intake Total 3489.143 4891.567 227.955 Output Total 1545 1440 148 Balance -506.253 -257.433 79.955 Weight 92.5 kg 90 kg Intake: IV 276 276 69 Pressure bag of 0.9 NaCl- 36 36 9 Sodium Chloride 0.9% 1, 240 240 60 000 ml @ 20 mls/hr IV . Q24H [facility] Rx#:[id number] Intake, IV Titration 43.747 224.567 17.955 Amount Propofol 1,000 mg In 43.747 224.567 17.955 Empty Bag 1 bag @ Titrate IV .Q0M [facility] Rx#: [id number] Tube Feeding 629 592 111 Other 90 90 30 Output: Urine 1545 1440 148 Other: Voiding Method Indwelling Catheter Indwelling Catheter # Bowel Movements 1 ABP, PAP, CO, CI - Last Documented Arterial Blood Pressure 114/49 - Exam No acute distress, sedated with a tracheostomy tube and PEG tube in place. The patient is sedated and paralyzed synchronous with the mechanical ventilator. No evidence of any subcu emphysema. The patient is very symptoms with the mechanical ventilator while sedated. He does poorly once taken off sedation. HEENT examination is grossly unremarkable. Mucous membranes are moist. Tracheostomy tube in place and the patient is an extra long Shiley tracheostomy tube #8. Neck supple. Full range of motion. No adenopathy thyromegaly or neck vein distention. Cardiovascular Cardiac exam revealed the PMI to be normally situated and sized. The rhythm was regular and no extrasystoles were noted during several minutes of auscultation. The first and second heart sounds were normal and physiologic splitting of the second heart sound was noted. There were no murmurs, rubs, clicks, or gallops. Lungs reveal coarse diffuse bilateral inspiratory and expiratory rhonchi and wheezes. No crackles are noted. Breath sounds equal bilaterally. Breath sounds are bit more closely than yesterday's exam. Subcutaneous emphysema is much improved, nearly recovered Abdomen soft and bowel sounds are heard. No masses or tenderness. PEG tube noted. Extremities are intact. No cyanosis clubbing or edema. Examination of the skin revealed no evidence of significant rashes, suspicious appearing nevi or other concerning lesions. Neurologic examination is very difficult to assess as the patient is sedated. Once taken off sedation he would open up his eyes and track. He does not follow any commands. He gets however quite restless and worked up and agitated , affecting his oxygenation and synchrony with the mechanical ventilator. - Labs CBC & Chem 7: 09/25/18 04:00 09/25/18 04:00 Labs: Abnormal Lab Results - Last 24 Hours (Table) 09/24/18 09/24/18 09/24/18 Range/Units 11:29 11:35 16:11 WBC (3.8-10.6) k/uL RBC (4.30-5.90) m/uL MCV (80.0-100.0) fL Plt Count (150-450) k/uL Neutrophils # (1.3-7.7) k/uL Lymphocytes # (1.0-4.8) k/uL ABG pH (7.35-7.45) ABG pCO2 75 H* (35-45) mmHg ABG pO2 65 L (83-108) mmHg ABG HCO3 47 H* (21-25) mmol/L ABG Total CO2 50 H (19-24) mmol/L ABG O2 Saturation 92.4 L (94-97) % Chloride (98-107) mmol/L Carbon Dioxide (22-30) mmol/L BUN (9-20) mg/dL Creatinine (0.66-1.25) mg/dL Glucose (74-99) mg/dL POC Glucose (mg/dL) 167 H 141 H (75-99) mg/dL Magnesium (1.6-2.3) mg/dL 09/24/18 09/24/18 09/24/18 Range/Units 18:16 20:08 21:47 WBC (3.8-10.6) k/uL RBC (4.30-5.90) m/uL MCV (80.0-100.0) fL Plt Count (150-450) k/uL Neutrophils # (1.3-7.7) k/uL Lymphocytes # (1.0-4.8) k/uL ABG pH (7.35-7.45) ABG pCO2 (35-45) mmHg ABG pO2 (83-108) mmHg ABG HCO3 (21-25) mmol/L ABG Total CO2 (19-24) mmol/L ABG O2 Saturation (94-97) % Chloride (98-107) mmol/L Carbon Dioxide 47 H* (22-30) mmol/L BUN 50 H (9-20) mg/dL Creatinine 0.42 L (0.66-1.25) mg/dL Glucose 171 H (74-99) mg/dL POC Glucose (mg/dL) 134 H 177 H (75-99) mg/dL Magnesium 2.4 H (1.6-2.3) mg/dL 09/24/18 09/25/18 09/25/18 Range/Units 23:34 02:06 04:00 WBC 18.4 H (3.8-10.6) k/uL RBC 4.26 L (4.30-5.90) m/uL MCV 104.5 H (80.0-100.0) fL Plt Count 103 L (150-450) k/uL Neutrophils # 17.5 H (1.3-7.7) k/uL Lymphocytes # 0.3 L (1.0-4.8) k/uL ABG pH (7.35-7.45) ABG pCO2 (35-45) mmHg ABG pO2 (83-108) mmHg ABG HCO3 (21-25) mmol/L ABG Total CO2 (19-24) mmol/L ABG O2 Saturation (94-97) % Chloride (98-107) mmol/L Carbon Dioxide (22-30) mmol/L BUN (9-20) mg/dL Creatinine (0.66-1.25) mg/dL Glucose (74-99) mg/dL POC Glucose (mg/dL) 160 H 145 H (75-99) mg/dL Magnesium (1.6-2.3) mg/dL 09/25/18 09/25/18 09/25/18 Range/Units 04:00 05:21 05:47 WBC (3.8-10.6) k/uL RBC (4.30-5.90) m/uL MCV (80.0-100.0) fL Plt Count (150-450) k/uL Neutrophils # (1.3-7.7) k/uL Lymphocytes # (1.0-4.8) k/uL ABG pH 7.46 H (7.35-7.45) ABG pCO2 70 H (35-45) mmHg ABG pO2 57 L* (83-108) mmHg ABG HCO3 49 H* (21-25) mmol/L ABG Total CO2 51 H (19-24) mmol/L ABG O2 Saturation 89.6 L (94-97) % Chloride 96 L (98-107) mmol/L Carbon Dioxide 47 H* (22-30) mmol/L BUN 51 H (9-20) mg/dL Creatinine 0.45 L (0.66-1.25) mg/dL Glucose 176 H (74-99) mg/dL POC Glucose (mg/dL) 156 H (75-99) mg/dL Magnesium 2.5 H (1.6-2.3) mg/dL Assessment and Plan Plan: Assessment 1 Acute hypoxic/hypercapnic respiratory failure, secondary to COPD exacerbation. The patient is failure to wean. The patient has a tracheostomy tube in place. Patient is still requiring higher FiO2 and high PEEP to maintain oxygenation and a pO2 above 60. No much room for any further weaning. He still very much dependent to sedation. 2 Status post bronchoscopy for sampling of the lower respiratory tract and removal of airway secretions on 09/13/2018, and subsequently the bronchoscope was repeated on 09/22/2018 and the patient has negative cultures for now.. Therapeutic airway suctioning was done. Following the second bronchoscopy, there is improvement in the right lower lobe opacity and the patient is undergoing chest PT and percussion through the hospital bed. The cultures collected at all negative for any microbial growth. The patient is Amy which is most likely a colonizer. 3 Status post tracheostomy and PEG tube placement on 09/17/2018. 4 Massive subcutaneous emphysema and pneumomediastinum, post blood patch, and these abnormalities of recovered and the patient is not showing any air leak 5 Severe end-stage COPD 6 History of chronic and ongoing tobacco dependence 7 Severe ischemic cardiomyopathy with ejection fraction of 20-25% 8 History of noncompliance with medications and follow-ups 9 Previous history of respiratory failure with ventilator dependence 10 Coronary artery disease, status post stent placements in the right coronary artery and circumflex coronary artery 11 History of nonsustained ventricular tachycardia 12 History of DVT 13 Status post fem-fem bypass for peripheral vascular disease 14 History of essential hypertension 15 History of hyperlipidemia PLAN Unable to make further progress. The patient is vent dependent. He is also dependent on high level. An higher FiO2 levels. He is very much dependent to sedation. The workup has been completed including a CAT scan of the chest that showed diffuse emphysema and atelectatic changes in lung bases right more than left and there was no evidence of any pulmonary embolism. No evidence of any pneumonia. Typically it was suctioning was done post bronchoscopy and the bronchioloalveolar lavage has been all negative. He is on a combination of bronchodilators and systemic steroids. Hemodynamically stable. Will need to discuss his condition with the family and establish goals of treatment. May be a good candidate for comfort care measures due to the above-mentioned comorbidities. Critically care evaluation more than 30 minutes. Time with Patient: Greater than 30
[2018-09-25 10:43] LABS: ABG HCO3 46 mmol/L (21-25); ABG PCO2 78 mmHg (35-45)
[2018-09-25 10:44] LABS: ABG HCO3 47 mmol/L (21-25)
[2018-09-25 11:55] LABS: Glucose,Whole Blood 178 mg/dL (75-99)
[2018-09-25] MEDS: SODIUM CHLORIDE 0.9% 1,000 ML IV SCH (12:13)
[2018-09-25] MEDS: CISATRACURIUM 200 MG in SODIUM CHLORIDE 0.9% 180 ML IV SCH (16:17)
[2018-09-25 17:52] LABS: Glucose,Whole Blood 190 mg/dL (75-99)
[2018-09-25] MEDS: ATORVASTATIN 20 MG TAB PO SCH (20:39)
[2018-09-25 20:46] LABS: Glucose,Whole Blood 181 mg/dL (75-99)
[2018-09-25] MEDS: INSULIN DETEMIR 100 UNIT/ML 10 ML VIAL SQ SCH (20:47)
[2018-09-25 22:32] LABS: Blood Urea Nitrogen 52 mg/dL (9-20); Calcium 8.7 mg/dL (8.4-10.2); Chloride 94 mmol/L (98-107); Glucose 180 mg/dL (74-99); Magnesium 2.6 mg/dL (1.6-2.3); Phosphorus 3.7 mg/dL (2.5-4.5); Potassium 3.7 mmol/L (3.5-5.1); Sodium 143 mmol/L (137-145)
[2018-09-25 22:38] LABS: Anion Gap 2 mmol/L
[2018-09-25 22:42] LABS: Carbon Dioxide 47 mmol/L (22-30)
[2018-09-25 23:14] LABS: ABG Base Excess 27.5 mmol/L; ABG Oxygen Saturation 87.9 % (94-97); ABG PH 7.47 (7.35-7.45); ABG TCO2 53 mmol/L (19-24)
[2018-09-25 23:44] LABS: ABG HCO3 51 mmol/L (21-25); ABG PCO2 71 mmHg (35-45); ABG PO2 54 mmHg (83-108)
[2018-09-25 23:46] LABS: Glucose,Whole Blood 165 mg/dL (75-99)
[2018-09-26] MEDS ORDERED: POTASSIUM BICARBONATE/CIT AC 20 MEQ TABLET.EFF NG-TUBE SCH
--- NOTE | 2018-09-26 01:12 | PN ---
PROGRESS NOTE DATE OF SERVICE: 09/25/2018. PRESENTING COMPLAINT: Intubated. INTERVAL HISTORY: This patient has advanced COPD, smoker, CHF exacerbation, presented for the same. Remains in the ICU, intubated. Patient is status post bronchoscopy x2. The patient's FiO2 is 60%, PEEP of 12. Remains on tube feeding. The patient is getting propofol. Not doing too well, did not do well with feeding. REVIEW OF SYSTEMS: Could not be done, patient is intubated. CURRENT MEDICATIONS: Reviewed. PHYSICAL EXAMINATION: Temperature 98.9, pulse 67, respirations 26, blood pressure 139/76, pulse ox 92% on ventilator. GENERAL APPEARANCE: Lying in bed, intubated. EYES: Pupil eyes. Conjunctivae normal. HEENT: External nose and ears normal. Oral cavity dry mucous membrane. NEC: JVD unable to assess. Mass not palpable. Respiratory effort increased. LUNGS: Decreased breath sounds. CARDIOVASCULAR: 1st and 2nd sounds normal. Some edema. ABDOMEN: Soft, nontender. Liver and spleen not palpable. DERMATOLOGIC: Slight bruising. INVESTIGATIONS: White count 18.4, hemoglobin 14, potassium 4.1, bicarb 47, BUN 51, creatinine 0.45. The patient's bronchial washings have shown Amy glabrata. ASSESSMENT: 1. Acute severe chronic obstructive pulmonary disease exacerbation in a smoker, slow to respond. 2. Status post bronchoscopy x2. 3. Chronic nicotine dependence. Patient is a cigarette smoker. 4. Acute on chronic congestive heart failure exacerbation from systolic dysfunction, ejection fraction 20%. 5. Acute hypoxic respiratory failure from underlying chronic obstructive pulmonary disease. Patient remains on the ventilator assisted. 6. Coronary artery with stent in 2013. 7. Peripheral artery disease with fem-fem bypass. 8. Hyperlipidemia. 9. Essential hypertension. 10.Restless legs syndrome. 11.Chronic rotator cuff injury. 12.Gastroesophageal reflux disease. 13.Status post tracheostomy and PEG tube. 14.Hypertension. 15.Pneumomediastinum, stable. PLAN: Patient continues to do poorly. The patient has got advanced COPD only 20% EF, underlying coronary artery disease, multiple other comorbidities. If patient does not respond, probably will be appropriate to lean toward hospice. Long-term prognosis appears to be rather poor at this point. We will see what the outbound sales agent feels about the same. We will also talk about the same to the family. MMODL / IJN: [id number] /
--- NOTE | 2018-09-26 02:29 | XR ---
EXAMINATION TYPE: XR chest 1V portable DATE OF EXAM: 09/26/2018 COMPARISON: NONE HISTORY: Mechanically ventilated. Respiratory failure. TECHNIQUE: Single frontal view of the chest Findings tracheostomy tube is in good position. There is some infiltrate at both lung bases. There is no hear t failure. Heart size is normal. There are emphysematous changes in the upper lobes. Thoracic aorta i s atheromatous. IMPRESSION: Lower lobe pulmonary infiltrates unchanged compared to yesterday. COPD.
[2018-09-26] MEDS: PROPOFOL 1,000 MG in EMPTY BAG 1 BAG IV SCH ×3 (03:00→23:02)
[2018-09-26] MEDS: IPRATROPIUM-ALBUTEROL 3 ML NEB INHALATION SCH ×6 (03:20→23:11)
[2018-09-26] MEDS: HYDROmorphone 1 MG/ML 1 ML SYRINGE IVP PRN (04:10)
[2018-09-26 04:14] LABS: Basophils % (A) 0 %; Eosinophils # (A) 0.2 k/uL (0-0.7); Eosinophils % (A) 1 %; HCT 45.5 % (39.0-53.0); HGB 14.2 gm/dL (13.0-17.5); Hypochromasia Slight; Lymphocytes # (A) 0.3 k/uL (1.0-4.8); Lymphocytes % (A) 1 %; MCH 32.7 pg (25.0-35.0); MCHC 31.1 g/dL (31.0-37.0); MCV 105.2 fL (80.0-100.0); Macrocytosis Slight; Mean Platelet Volume 8.8; Monocytes # (A) 1.1 k/uL (0-1.0); Monocytes % (A) 4 %; Neutrophils # (A) 27.9 k/uL (1.3-7.7); Neutrophils % (A) 95 %; RBC 4.33 m/uL (4.30-5.90); WBC 29.4 k/uL (3.8-10.6)
[2018-09-26 04:22] LABS: Platelet Count 99 k/uL (150-450)
[2018-09-26 04:29] LABS: Blood Urea Nitrogen 54 mg/dL (9-20); Calcium 8.8 mg/dL (8.4-10.2); Chloride 94 mmol/L (98-107); Glucose 191 mg/dL (74-99); Magnesium 2.5 mg/dL (1.6-2.3); Phosphorus 3.9 mg/dL (2.5-4.5); Potassium 4.4 mmol/L (3.5-5.1); Sodium 143 mmol/L (137-145)
[2018-09-26 04:35] LABS: Anion Gap 1 mmol/L
[2018-09-26 04:59] LABS: Carbon Dioxide 48 mmol/L (22-30)
[2018-09-26 05:30] LABS: ABG Base Excess 26.3 mmol/L; ABG PO2 99 mmHg (83-108); ABG TCO2 54 mmol/L (19-24)
[2018-09-26 05:32] LABS: ABG HCO3 51 mmol/L (21-25); ABG PCO2 82 mmHg (35-45)
[2018-09-26 06:00] LABS: INR 1.1 (<1.2); Partial Thromboplastin Time 23.6 sec (22.0-30.0); Prothrombin Time 10.4 sec (9.0-12.0)
[2018-09-26 06:00] LABS: Glucose,Whole Blood 244 mg/dL (75-99)
[2018-09-26] MEDS: BUDESONIDE 1 MG/2 ML NEBU INHALATION SCH ×2 (06:01→18:55)
[2018-09-26] MEDS: FORMOTEROL FUMARATE 20 MCG/2 ML NEBU INHALATION SCH ×2 (06:01→18:55)
[2018-09-26] MEDS: INSULIN ASPART 100 UNIT/ML 1 ML 10 ML VIAL SQ SCH ×3 (06:03→19:21)
[2018-09-26] MEDS: methylPREDNISolone SOD SUCCI 125 MG/2 ML VIAL IV SCH ×3 (06:04→19:20)
[2018-09-26] MEDS: FAMOTIDINE 20 MG/2 ML VIAL IV SCH ×2 (09:18→20:53)
[2018-09-26] MEDS: FUROSEMIDE 10 MG/ML 4 ML VIAL IV SCH ×2 (09:18→20:54)
[2018-09-26] MEDS: METOPROLOL TARTRATE 25 MG TAB PO SCH ×2 (09:18→21:00)
[2018-09-26] MEDS: LISINOPRIL 2.5 MG TAB PO SCH ×2 (09:18→20:59)
[2018-09-26] MEDS: NICOTINE 21MG/24HR PATCH TRANSDERM SCH (09:18)
[2018-09-26] MEDS: CHLORHEXIDINE GLUCONATE 15 ML CUP MUCOUS MEM SCH ×2 (09:19→20:53)
[2018-09-26] MEDS: ARTIFICIAL TEARS-HYPROMELLOSE DROPS 15 ML BTL BOTH EYES SCH ×4 (09:19→21:00)
[2018-09-26] MEDS: ASPIRIN 81 MG PO SCH (09:20)
[2018-09-26] MEDS: CISATRACURIUM 200 MG in SODIUM CHLORIDE 0.9% 180 ML IV SCH (11:48)
[2018-09-26 13:04] LABS: Glucose,Whole Blood 175 mg/dL (75-99)
[2018-09-26] MEDS: SODIUM CHLORIDE 0.9% 1,000 ML IV SCH (13:14)
--- NOTE | 2018-09-26 17:11 | P.PN ---
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 tach, DVT, peripheral vascular disease with previous fem-fem bypass surgery, hypertension and hyperlipidemia, who is currently in the intensive care unit intubated on a mechanical ventilator. The patient was admitted again to the hospital because of acute respiratory failure and he was admitted on 09/10/2018. He failed to wean and subsequently he underwent a tracheostomy and a PEG tube insertion. The patient's course was complicated by development of a air leak for which she was followed up by Dr. Baptiste and the patient underwent a blood patch. During the course of his treatment, the patient developed massive subcutaneous emphysema and pneumomediastinum without pneumothorax. This was managed conservatively. This morning, the patient is sedated and paralyzed. I have him on a assist- control mode of ventilation with a tidal volume of 500, FiO2 of 100%, PEEP of 15 and the respiratory rate of 22. Morning blood gases showed a pH of 7.37 with a pCO2 of 56 and pO2 of 74. His peak airway pressure was around 38. He static pressure is 26. Chest x-ray shows hyperinflation and there is lower lobe haziness bilaterally more so on the right and there is no evidence of any pneumothorax. The patient has diminished breath sounds bilaterally. Breath sounds are equal and symmetrical and there is no significant bronchospasm and wheezing. As mentioned, his foot is sedated and Diprivan is running at 70 mics per KG per minute and the patient is also paralyzed with Nimbex. He is on IV fluids at 75 mL an hour of normal saline and the patient was receiving also Lasix 20 mg IV push every 12 hours. He is afebrile. He is on accommodation Rocephin and Zithromax and his been on the same antibiotic coverage for the past 1 week at least. No positive cultures have been obtained during this current hospitalization. White cell count is at 17.2. His cardiac rhythm is sinus. No significant arrhythmias have been noted. Rest of the blood work including the electrodes and the renal function are all within normal limits. He remains on bronchodilators with DuoNeb nebulized treatment [id number], he is on IV Solu-Medrol 60 mg every 6 hours. He is also on a combination of Perforomist and Pulmicort neb last treatment twice a day. Rest of the medication were all reviewed. He is receiving enteral feeding via PEG tube and the exit site is clean and the patient is able to tolerate the tube feeds without any major difficulties and he is currently at goal at 45 mL an hour of vital high protein. He has an adequate urine output is producing approximately 50-60 an hour. Nevertheless, his net fluid balance has been persistent positive being 1.6 L positive on 09/18/2018, 1 L positive on 09/19/2018, 4 L positive on 09/20/2018 and another 2.4 L positive since earlier this morning. I noticed that the patient is at least 3 kg heavier in weight compared to 2017. On 09/22/2000 Seeing this patient for a follow-up. This patient is post ventilator-dependent respiratory failure secondary to COPD exacerbation. He was sedated and paralyzed. CAT scan of the chest was done yesterday that showed emphysema involving the upper lobes bilaterally. There was extensive atelectatic change the lung bases more so on the right. Small bilateral pleural effusion with also seen however these were essentially small and the predominant abnormality was the significant atelectatic changes and consolidation of the lung bases bilaterally. The patient is morning is on a combination of Diprivan and Nimbex for sedation. The patient is intubated on a mechanical ventilator. Based on my yesterday's evaluation, I dropped a PEEP down to 10 and FiO2 at 60% with a tidal volume of 400 and the rate of 26. The peak air pressure from this morning was 28. Static pressure was around 16. The blood gases from earlier showed a pH of 7.38 with a pCO2 of 62 and pO2 of 64 and this was done and FiO2 of 70%. Chest x-ray still showing opacification lung bases bilaterally. Based on this, I performed a bronchoscopy during which there was some mucous plugs identified in the lower lobes bilaterally more so on the right and therapeutic it was suctioning was done and the bronchial aspirate was sent for microbial analysis and cultures. The patient was also taken off antibiotics knowing that the patient has been covered with the same antibiotics for almost a week and is included a combination of Rocephin and Zithromax. He remains on accommodation broncho-dilators steroids. He is tolerating his tube feeds. He is hemodynamically stable. Is afebrile. No significant subcu EMPHYSEMA. White cell count stable at 20.5. Hemoglobin stable at 13.6. On 09/23/2018, the patient is off paralytics and he remains sedated, comfortable on a mechanical ventilator. Earlier this morning he is vent setting included a PEEP of 10 with an FiO2 of 70% and a tidal volume of 400 and the rate of 26. Chest x-ray showed improvement in the right lower lobe pulmonary infiltrate/opacity. Note that the patient underwent a bronchoscopy yesterday and therapeutic it was suctioning was done and mucous plugs were removed and the lung bases bilaterally. Cultures were also sent and the results are still pending for now. Brando this improvement, the patient's blood gases did not show marked improvement in oxygenation. The pH is 7.45 with a pCO2 of 61 and pO2 of 53. I tried to go with higher tidal volume yet this failed knowing that this. The patient's oxygenation and the patient became alkalotic. I put him back on a PEEP of 14 with an FiO2 of 70% tidal volume of 400 with a rate of 26. The patient is currently sedated, comfortable recurrence with a mechanical ventilator and the patient is not showing any agitation or restlessness. No evidence of any subcutaneous emphysema. Hemodynamically stable. White cell count is at 20. The patient on no antibiotics for now. Tolerating his tube feeds. His renal function is stable. Rest of the electrolytes are all within normal limits and the patient has a component of metabolic alkalosis which is compensatory to his chronic hypercapnic respiratory failure. On 09/24/2018, the patient is being seen for a follow-up. The patient remains intubated on mechanical ventilated off paralytics. The patient is on Diprivan. Earlier this morning, I had the patient on FiO2 of 60% with a PEEP of 12 and a tidal volume of 400 with a rate of 26. Chest x-ray shows no major interval change. Bronchoscopy and bronchial lavage was done 2 days ago and the cultures of been all negative thus far. Unfortunately, there has been no major improvement in patient's oxygenation. The blood gases that was done earlier this morning showed a pH of 7.38 with a pCO2 of 78 and pO2 of 79. The FiO2 was gradually weaned down from 60% to 40% and follow-up blood gases showed a pH of 7.41 with a pCO2 of 75 and pO2 of 65 while the patient being on 40% FiO2. No fever. No chills. Tolerating diet. The patient is receiving enteral feeding for nutritional support. I'm in the process of getting this patient a sedation holiday. The patient will be gradually weaned off. Patient is producing adequate amount of urine output. Afebrile. No other significant events overnight. On 09/25/2018, the patient is still sedated with Diprivan and still on a mechanical ventilator with essentially same vent setting without any progress over the past few days. Unable to cut down the sedation as the patient gets agitated and restless tachycardic tachypneic and desaturates once taken off sedation. Unable to further weaned off the mechanical ventilator as the patient has no much room in terms of his oxygenation. On today's evaluation is on a assist-control mode at the rate of 26 with a tidal volume of 400 with an FiO2 of 40% and a PEEP of 12. The blood care showed a pH of 7.46 with a pCO2 of 70 and pO2 57. Race on this I increased his FiO2 up to 60%. His chest x- ray shows no interval change. Tracheostomy tube is intact. No evidence of any air leak. No evidence of any subcutaneous emphysema. No fever. No chills. White cell count stable at 18.4. Electrolytes are unchanged. Unfortunately no much progress being done on this patient. I suspect that his advanced lung disease in addition to atelectatic changes in lung bases which is affecting his oxygenation and his ability to wean. He is on enteral feeding for nutritional support. He is on Lovenox for DVT prophylaxis. He is on IV Solu Medrol addition to a combination of bronchodilators and inhaled corticosteroids. He is receiving enteral feeding for nutritional support. On 09/26/2018, the patient remains sedated. We are at the [place] we're not able to do any progress in this patient. The patient is unable to wean off the mechanical ventilator. His PEEP and FiO2 requirements have been quite high. Chest x-ray shows no acute changes. Overnight the patient developed hypoxemia and they oxygenation saturation was dropping. Based on that I increased the PEEP up to 15 and FiO2 at 75%. Blood gases from this morning showed a pH of 7.4 with a pCO2 of 82 and pO2 of 99. The patient's peak pressures around 34. The patient was having bleeding and frothy sputum around his tracheostomy tube. His white cell count is at 29.4. He was stable at 14.2. Still requiring Diprivan which is running at 45 mics per KG per minute and unable to Sedation As the Patient Becomes Asynchronous and Desaturates. Hemodynamically, He Is Blood Pressure Is Maintained without Any Pressors and Is Producing Adequate Amount of Urine Output. No fever. No chills. No other significant events overnight. Atelectatic discussion with the family. I met the daughter and explained to her the ongoing issues lingular encountering with this patient. I' m unable to wean this patient and based on my evaluation the patient would likely not be independent left mechanical ventilator in the future. Answering the family's weaning with comfort care measures. His baseline performance and functional status is extremely poor and the patient had very poor medical follow -up regarding his current health and COPD in general. Objective - Vital Signs Vital signs: Vital Signs Temp 98.9 F 09/26/18 12:00 Pulse 51 L 09/26/18 16:00 Resp 30 H 09/26/18 16:00 BP 163/89 09/26/18 16:00 Pulse Ox 96 09/26/18 16:00 Intake & Output 09/25/18 09/26/18 09/26/18 18:59 06:59 18:59 Intake Total 0605.727 8811 1444.01 Output Total 1448 1600 1245 Balance -150.715 -482 199.01 Weight 88.8 kg Intake: IV 276 299 207 Pressure bag of 0.9 NaCl- 36 39 27 Sodium Chloride 0.9% 1, 240 260 180 000 ml @ 20 mls/hr IV . Q24H [facility] Rx#:[id number] Intake, IV Titration 265.285 100 98.01 Amount Propofol 1,000 mg In 265.285 100 98.01 Empty Bag 1 bag @ Titrate IV .Q0M [facility] Rx#: [id number] Tube Feeding 958 436 0815 Other 90 90 Output: Urine 1448 1600 1245 Other: Voiding Method Indwelling Catheter Indwelling Catheter Indwelling Catheter ABP, PAP, CO, CI - Last Documented Arterial Blood Pressure 125/46 - Exam No acute distress, sedated with a tracheostomy tube and PEG tube in place. The patient is sedated and paralyzed synchronous with the mechanical ventilator. No evidence of any subcu emphysema. The patient is very symptoms with the mechanical ventilator while sedated. He does poorly once taken off sedation. HEENT examination is grossly unremarkable. Mucous membranes are moist. Tracheostomy tube in place and the patient is an extra long Shiley tracheostomy tube #8. Neck supple. Full range of motion. No adenopathy thyromegaly or neck vein distention. Cardiovascular Cardiac exam revealed the PMI to be normally situated and sized. The rhythm was regular and no extrasystoles were noted during several minutes of auscultation. The first and second heart sounds were normal and physiologic splitting of the second heart sound was noted. There were no murmurs, rubs, clicks, or gallops. Lungs reveal coarse diffuse bilateral inspiratory and expiratory rhonchi and wheezes. No crackles are noted. Breath sounds equal bilaterally. Breath sounds are bit more closely than yesterday's exam. Subcutaneous emphysema is much improved, nearly recovered Abdomen soft and bowel sounds are heard. No masses or tenderness. PEG tube noted. Extremities are intact. No cyanosis clubbing or edema. Examination of the skin revealed no evidence of significant rashes, suspicious appearing nevi or other concerning lesions. Neurologic examination is very difficult to assess as the patient is sedated. Once taken off sedation he would open up his eyes and track. He does not follow any commands. He gets however quite restless and worked up and agitated , affecting his oxygenation and synchrony with the mechanical ventilator. - Labs CBC & Chem 7: 09/26/18 04:02 09/26/18 04:02 Labs: Abnormal Lab Results - Last 24 Hours (Table) 09/25/18 09/25/18 09/25/18 Range/Units 17:50 20:44 22:14 WBC (3.8-10.6) k/uL MCV (80.0-100.0) fL Plt Count (150-450) k/uL Neutrophils # (1.3-7.7) k/uL Lymphocytes # (1.0-4.8) k/uL Monocytes # (0-1.0) k/uL ABG pH (7.35-7.45) ABG pCO2 (35-45) mmHg ABG pO2 (83-108) mmHg ABG HCO3 (21-25) mmol/L ABG Total CO2 (19-24) mmol/L ABG O2 Saturation (94-97) % Chloride 94 L (98-107) mmol/L Carbon Dioxide 47 H* (22-30) mmol/L BUN 52 H (9-20) mg/dL Creatinine 0.51 L (0.66-1.25) mg/dL Glucose 180 H (74-99) mg/dL POC Glucose (mg/dL) 190 H 181 H (75-99) mg/dL Magnesium 2.6 H (1.6-2.3) mg/dL 09/25/18 09/25/18 09/26/18 Range/Units 23:11 23:34 04:02 WBC 29.4 H (3.8-10.6) k/uL MCV 105.2 H (80.0-100.0) fL Plt Count 99 L (150-450) k/uL Neutrophils # 27.9 H (1.3-7.7) k/uL Lymphocytes # 0.3 L (1.0-4.8) k/uL Monocytes # 1.1 H (0-1.0) k/uL ABG pH 7.47 H (7.35-7.45) ABG pCO2 71 H* (35-45) mmHg ABG pO2 54 L* (83-108) mmHg ABG HCO3 51 H* (21-25) mmol/L ABG Total CO2 53 H (19-24) mmol/L ABG O2 Saturation 87.9 L (94-97) % Chloride (98-107) mmol/L Carbon Dioxide (22-30) mmol/L BUN (9-20) mg/dL Creatinine (0.66-1.25) mg/dL Glucose (74-99) mg/dL POC Glucose (mg/dL) 165 H (75-99) mg/dL Magnesium (1.6-2.3) mg/dL 09/26/18 09/26/18 09/26/18 Range/Units 04:02 05:25 05:58 WBC (3.8-10.6) k/uL MCV (80.0-100.0) fL Plt Count (150-450) k/uL Neutrophils # (1.3-7.7) k/uL Lymphocytes # (1.0-4.8) k/uL Monocytes # (0-1.0) k/uL ABG pH (7.35-7.45) ABG pCO2 82 H* (35-45) mmHg ABG pO2 (83-108) mmHg ABG HCO3 51 H* (21-25) mmol/L ABG Total CO2 54 H (19-24) mmol/L ABG O2 Saturation 98.0 H (94-97) % Chloride 94 L (98-107) mmol/L Carbon Dioxide 48 H* (22-30) mmol/L BUN 54 H (9-20) mg/dL Creatinine 0.50 L (0.66-1.25) mg/dL Glucose 191 H (74-99) mg/dL POC Glucose (mg/dL) 244 H (75-99) mg/dL Magnesium 2.5 H (1.6-2.3) mg/dL 09/26/18 Range/Units 13:02 WBC (3.8-10.6) k/uL MCV (80.0-100.0) fL Plt Count (150-450) k/uL Neutrophils # (1.3-7.7) k/uL Lymphocytes # (1.0-4.8) k/uL Monocytes # (0-1.0) k/uL ABG pH (7.35-7.45) ABG pCO2 (35-45) mmHg ABG pO2 (83-108) mmHg ABG HCO3 (21-25) mmol/L ABG Total CO2 (19-24) mmol/L ABG O2 Saturation (94-97) % Chloride (98-107) mmol/L Carbon Dioxide (22-30) mmol/L BUN (9-20) mg/dL Creatinine (0.66-1.25) mg/dL Glucose (74-99) mg/dL POC Glucose (mg/dL) 175 H (75-99) mg/dL Magnesium (1.6-2.3) mg/dL Microbiology - Last 24 Hours (Table) 09/22/18 10:20 Fungal Culture - Preliminary Bronchial Washings - Right Yeast species Assessment and Plan Plan: Assessment 1 Acute hypoxic/hypercapnic respiratory failure, secondary to COPD exacerbation. The patient is failure to wean. The patient has a tracheostomy tube in place. Patient is still requiring higher FiO2 and high PEEP to maintain oxygenation and a pO2 above 60. No much room for any further weaning. He still very much dependent to sedation. 2 Status post bronchoscopy for sampling of the lower respiratory tract and removal of airway secretions on 09/13/2018, and subsequently the bronchoscope was repeated on 09/22/2018 and the patient has negative cultures for now.. Therapeutic airway suctioning was done. Following the second bronchoscopy, there is improvement in the right lower lobe opacity and the patient is undergoing chest PT and percussion through the hospital bed. The cultures collected at all negative for any microbial growth. The patient is Amy which is most likely a colonizer. 3 Status post tracheostomy and PEG tube placement on 09/17/2018. 4 Massive subcutaneous emphysema and pneumomediastinum, post blood patch, and these abnormalities of recovered and the patient is not showing any air leak 5 Severe end-stage COPD 6 History of chronic and ongoing tobacco dependence 7 Severe ischemic cardiomyopathy with ejection fraction of 20-25% 8 History of noncompliance with medications and follow-ups 9 Previous history of respiratory failure with ventilator dependence 10 Coronary artery disease, status post stent placements in the right coronary artery and circumflex coronary artery 11 History of nonsustained ventricular tachycardia 12 History of DVT 13 Status post fem-fem bypass for peripheral vascular disease 14 History of essential hypertension 15 History of hyperlipidemia PLAN Unable to make further progress. The patient is vent dependent. Different doctors to optimize her pulmonary status have failed. 60 molecular patient with recovered from this event and become independent or lung that his life without any form of vent support. The family is leaning [facility] comfort care measures and will introduce end-of-life care with the next 24 hours. Continued supportive care for now. Atelectatic discussion with the family. This evaluation was done more than 30 minute I also discussed the case with Dr. Negron Time with Patient: Greater than 30
[2018-09-26 17:49] LABS: Hemoglobin A1C 6.2 % (4.0-6.0)
[2018-09-26 18:35] LABS: Glucose,Whole Blood 180 mg/dL (75-99)
[2018-09-26] MEDS: ATORVASTATIN 20 MG TAB PO SCH (20:44)
[2018-09-26] MEDS: INSULIN DETEMIR 100 UNIT/ML 10 ML VIAL SQ SCH (20:59)
[2018-09-26 21:00] LABS: Glucose,Whole Blood 171 mg/dL (75-99)
[2018-09-27] MEDS: methylPREDNISolone SOD SUCCI 125 MG/2 ML VIAL IV SCH ×5 (01:07→23:56)
[2018-09-27 01:11] LABS: Glucose,Whole Blood 157 mg/dL (75-99)
[2018-09-27] MEDS: INSULIN ASPART 100 UNIT/ML 1 ML 10 ML VIAL SQ SCH ×5 (01:11→23:56)
[2018-09-27] MEDS: PROPOFOL 1,000 MG in EMPTY BAG 1 BAG IV SCH ×4 (02:20→22:52)
[2018-09-27] MEDS: IPRATROPIUM-ALBUTEROL 3 ML NEB INHALATION SCH ×6 (03:21→23:10)
[2018-09-27 04:18] LABS: Blood Urea Nitrogen 52 mg/dL (9-20); Calcium 8.7 mg/dL (8.4-10.2); Chloride 94 mmol/L (98-107); Glucose 202 mg/dL (74-99); Magnesium 2.4 mg/dL (1.6-2.3); Phosphorus 3.4 mg/dL (2.5-4.5); Potassium 3.7 mmol/L (3.5-5.1); Sodium 144 mmol/L (137-145)
[2018-09-27 04:24] LABS: Anion Gap 0 mmol/L
[2018-09-27 04:25] LABS: Carbon Dioxide 50 mmol/L (22-30)
[2018-09-27 04:42] LABS: ABG Base Excess 27.8 mmol/L; ABG Oxygen Saturation 99.6 % (94-97); ABG PH 7.41 (7.35-7.45); ABG PO2 163 mmHg (83-108); ABG TCO2 55 mmol/L (19-24)
[2018-09-27 04:45] LABS: ABG HCO3 53 mmol/L (21-25)
[2018-09-27 04:45] LABS: Basophils % (A) 0 %; Eosinophils % (A) 0 %; HCT 44.1 % (39.0-53.0); HGB 13.2 gm/dL (13.0-17.5); Hypochromasia Slight; Lymphocytes # (A) 0.3 k/uL (1.0-4.8); Lymphocytes % (A) 1 %; MCH 31.7 pg (25.0-35.0); MCHC 29.9 g/dL (31.0-37.0); MCV 106.1 fL (80.0-100.0); Macrocytosis Moderate; Mean Platelet Volume 8.7; Monocytes # (A) 0.6 k/uL (0-1.0); Monocytes % (A) 3 %; Neutrophils # (A) 19.2 k/uL (1.3-7.7); Neutrophils % (A) 96 %; RBC 4.16 m/uL (4.30-5.90); RDW 13.2 % (11.5-15.5); WBC 20.1 k/uL (3.8-10.6)
[2018-09-27 05:42] LABS: Glucose,Whole Blood 185 mg/dL (75-99)
[2018-09-27] MEDS: POTASSIUM CHLORIDE 10 MEQ in WATER FOR INJECTION 1 100ML.BAG IVPB SCH ×2 (05:46→09:54)
[2018-09-27 06:01] LABS: Platelet Count 84 k/uL (150-450)
--- NOTE | 2018-09-27 06:27 | XR ---
EXAMINATION TYPE: XR chest 1V portable DATE OF EXAM: 09/27/2018 HISTORY: high oxygen demand w vent. REFERENCE: Previous study dated 09/26/2018. FINDINGS: The tracheostomy tube remains in place. Its tip overlies the tracheal air column in this si ngle frontal projection. Lung volumes are prominent. There is improved aeration at the left lung base. I cannot exclude small, bilateral effusions. The heart is not enlarged. IMPRESSION: 1. IMPROVED AERATION, LEFT LUNG BASE. 2. SMALL, BILATERAL EFFUSIONS.
[2018-09-27 06:50] LABS: INR 1.1 (<1.2); Partial Thromboplastin Time 23.4 sec (22.0-30.0); Prothrombin Time 10.6 sec (9.0-12.0)
[2018-09-27] MEDS: FORMOTEROL FUMARATE 20 MCG/2 ML NEBU INHALATION SCH ×2 (07:07→19:50)
[2018-09-27] MEDS: BUDESONIDE 1 MG/2 ML NEBU INHALATION SCH ×2 (07:07→19:50)
--- NOTE | 2018-09-27 08:02 | PN ---
PROGRESS NOTE DATE OF SERVICE: 09/26/18. PRESENTING COMPLAINT: Intubated. INTERVAL HISTORY: This patient with advanced COPD, smoker, CHF, presented for the same exacerbation. Remains in the ICU, intubated, status post bronchoscopy x2, FiO2 50%, PEEP of 12. The patient is on propofol drip. Earlier today Dr. Menjivar spoke to patient's sister about the poor prognosis and decided to proceed with DNR with a view to terminal extubation down the road. Earlier today Dr. Menjivar spoke to the patient's sister and decided to make the patient DNR. REVIEW OF SYSTEMS: Could not be done as patient has a tracheostomy, on the ventilator. CURRENT MEDICATIONS: Reviewed. PHYSICAL EXAMINATION: Temperature 99, pulse 72, respiration 26, blood pressure 160/89, pulse ox 97% on trach collar. GENERAL APPEARANCE: Lying in bed. EYES: Pupils equal. Conjunctivae pale. HEENT: Dry mucous membrane. NECK: Tracheostomy in place. RESPIRATORY: Effort increased, lungs decreased breath sounds. CARDIOVASCULAR: Heart sounds irregular, some edema. ABDOMEN: Soft, nontender. NEUROLOGICAL: Arousable. INVESTIGATIONS: White count 9.4, hemoglobin 14.2, potassium 4.4, BUN 54, creatinine 0.50. Chest x-ray infiltrates present. ASSESSMENT: 1. Acute severe chronic obstructive pulmonary disease exacerbation, smoker, slow to respond. 2. Status post bronchoscopy x2. 3. Chronic nicotine dependence, patient is a cigarette smoker. 4. Acute on chronic congestive heart failure exacerbation from systolic dysfunction EF 20% stabilized. 5. Acute hypoxic respiratory failure from underlying chronic obstructive pulmonary disease, remains on ventilator assistance. 6. Coronary artery with stent in 2013. 7. Peripheral artery disease with fem-fem bypass. 8. Hyperlipidemia. 9. Essential hypertension. 10.Restless legs syndrome. 11.Chronic rotator cuff injury. 12.Gastroesophageal reflux disease. 13.Status post tracheostomy and PEG tube. 14.Pneumomediastinum iatrogenic, stable. PLAN: The patient has now been made DNR. Has continued to do poorly in spite of all attempts by the computer security manager. The patient's family will be flying in the next 24-48 hours, leaning towards hospice. MMODL / IJN: [id number] /
[2018-09-27] MEDS: CISATRACURIUM 200 MG in SODIUM CHLORIDE 0.9% 180 ML IV SCH (08:06)
[2018-09-27] MEDS: ARTIFICIAL TEARS-HYPROMELLOSE DROPS 15 ML BTL BOTH EYES SCH ×4 (09:54→22:53)
[2018-09-27] MEDS: ASPIRIN 81 MG PO SCH (09:54)
[2018-09-27] MEDS: LISINOPRIL 2.5 MG TAB PO SCH ×2 (09:54→20:56)
[2018-09-27] MEDS: FAMOTIDINE 20 MG/2 ML VIAL IV SCH ×2 (09:54→20:56)
[2018-09-27] MEDS: METOPROLOL TARTRATE 25 MG TAB PO SCH ×2 (09:54→20:56)
[2018-09-27] MEDS: FUROSEMIDE 10 MG/ML 4 ML VIAL IV SCH ×2 (09:54→20:56)
[2018-09-27] MEDS: NICOTINE 21MG/24HR PATCH TRANSDERM SCH (09:54)
[2018-09-27] MEDS: CHLORHEXIDINE GLUCONATE 15 ML CUP MUCOUS MEM SCH ×2 (09:54→20:56)
[2018-09-27 12:25] LABS: Glucose,Whole Blood 173 mg/dL (75-99)
[2018-09-27] MEDS: SODIUM CHLORIDE 0.9% 1,000 ML IV SCH (12:33)
--- NOTE | 2018-09-27 14:37 | P.PN ---
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 tach, DVT, peripheral vascular disease with previous fem-fem bypass surgery, hypertension and hyperlipidemia, who is currently in the intensive care unit intubated on a mechanical ventilator. The patient was admitted again to the hospital because of acute respiratory failure and he was admitted on 09/10/2018. He failed to wean and subsequently he underwent a tracheostomy and a PEG tube insertion. The patient's course was complicated by development of a air leak for which she was followed up by Dr. Baptiste and the patient underwent a blood patch. During the course of his treatment, the patient developed massive subcutaneous emphysema and pneumomediastinum without pneumothorax. This was managed conservatively. This morning, the patient is sedated and paralyzed. I have him on a assist- control mode of ventilation with a tidal volume of 500, FiO2 of 100%, PEEP of 15 and the respiratory rate of 22. Morning blood gases showed a pH of 7.37 with a pCO2 of 56 and pO2 of 74. His peak airway pressure was around 38. He static pressure is 26. Chest x-ray shows hyperinflation and there is lower lobe haziness bilaterally more so on the right and there is no evidence of any pneumothorax. The patient has diminished breath sounds bilaterally. Breath sounds are equal and symmetrical and there is no significant bronchospasm and wheezing. As mentioned, his foot is sedated and Diprivan is running at 70 mics per KG per minute and the patient is also paralyzed with Nimbex. He is on IV fluids at 75 mL an hour of normal saline and the patient was receiving also Lasix 20 mg IV push every 12 hours. He is afebrile. He is on accommodation Rocephin and Zithromax and his been on the same antibiotic coverage for the past 1 week at least. No positive cultures have been obtained during this current hospitalization. White cell count is at 17.2. His cardiac rhythm is sinus. No significant arrhythmias have been noted. Rest of the blood work including the electrodes and the renal function are all within normal limits. He remains on bronchodilators with DuoNeb nebulized treatment [id number], he is on IV Solu-Medrol 60 mg every 6 hours. He is also on a combination of Perforomist and Pulmicort neb last treatment twice a day. Rest of the medication were all reviewed. He is receiving enteral feeding via PEG tube and the exit site is clean and the patient is able to tolerate the tube feeds without any major difficulties and he is currently at goal at 45 mL an hour of vital high protein. He has an adequate urine output is producing approximately 50-60 an hour. Nevertheless, his net fluid balance has been persistent positive being 1.6 L positive on 09/18/2018, 1 L positive on 09/19/2018, 4 L positive on 09/20/2018 and another 2.4 L positive since earlier this morning. I noticed that the patient is at least 3 kg heavier in weight compared to 2017. On 09/22/2000 Seeing this patient for a follow-up. This patient is post ventilator-dependent respiratory failure secondary to COPD exacerbation. He was sedated and paralyzed. CAT scan of the chest was done yesterday that showed emphysema involving the upper lobes bilaterally. There was extensive atelectatic change the lung bases more so on the right. Small bilateral pleural effusion with also seen however these were essentially small and the predominant abnormality was the significant atelectatic changes and consolidation of the lung bases bilaterally. The patient is morning is on a combination of Diprivan and Nimbex for sedation. The patient is intubated on a mechanical ventilator. Based on my yesterday's evaluation, I dropped a PEEP down to 10 and FiO2 at 60% with a tidal volume of 400 and the rate of 26. The peak air pressure from this morning was 28. Static pressure was around 16. The blood gases from earlier showed a pH of 7.38 with a pCO2 of 62 and pO2 of 64 and this was done and FiO2 of 70%. Chest x-ray still showing opacification lung bases bilaterally. Based on this, I performed a bronchoscopy during which there was some mucous plugs identified in the lower lobes bilaterally more so on the right and therapeutic it was suctioning was done and the bronchial aspirate was sent for microbial analysis and cultures. The patient was also taken off antibiotics knowing that the patient has been covered with the same antibiotics for almost a week and is included a combination of Rocephin and Zithromax. He remains on accommodation broncho-dilators steroids. He is tolerating his tube feeds. He is hemodynamically stable. Is afebrile. No significant subcu EMPHYSEMA. White cell count stable at 20.5. Hemoglobin stable at 13.6. On 09/23/2018, the patient is off paralytics and he remains sedated, comfortable on a mechanical ventilator. Earlier this morning he is vent setting included a PEEP of 10 with an FiO2 of 70% and a tidal volume of 400 and the rate of 26. Chest x-ray showed improvement in the right lower lobe pulmonary infiltrate/opacity. Note that the patient underwent a bronchoscopy yesterday and therapeutic it was suctioning was done and mucous plugs were removed and the lung bases bilaterally. Cultures were also sent and the results are still pending for now. Brando this improvement, the patient's blood gases did not show marked improvement in oxygenation. The pH is 7.45 with a pCO2 of 61 and pO2 of 53. I tried to go with higher tidal volume yet this failed knowing that this. The patient's oxygenation and the patient became alkalotic. I put him back on a PEEP of 14 with an FiO2 of 70% tidal volume of 400 with a rate of 26. The patient is currently sedated, comfortable recurrence with a mechanical ventilator and the patient is not showing any agitation or restlessness. No evidence of any subcutaneous emphysema. Hemodynamically stable. White cell count is at 20. The patient on no antibiotics for now. Tolerating his tube feeds. His renal function is stable. Rest of the electrolytes are all within normal limits and the patient has a component of metabolic alkalosis which is compensatory to his chronic hypercapnic respiratory failure. On 09/24/2018, the patient is being seen for a follow-up. The patient remains intubated on mechanical ventilated off paralytics. The patient is on Diprivan. Earlier this morning, I had the patient on FiO2 of 60% with a PEEP of 12 and a tidal volume of 400 with a rate of 26. Chest x-ray shows no major interval change. Bronchoscopy and bronchial lavage was done 2 days ago and the cultures of been all negative thus far. Unfortunately, there has been no major improvement in patient's oxygenation. The blood gases that was done earlier this morning showed a pH of 7.38 with a pCO2 of 78 and pO2 of 79. The FiO2 was gradually weaned down from 60% to 40% and follow-up blood gases showed a pH of 7.41 with a pCO2 of 75 and pO2 of 65 while the patient being on 40% FiO2. No fever. No chills. Tolerating diet. The patient is receiving enteral feeding for nutritional support. I'm in the process of getting this patient a sedation holiday. The patient will be gradually weaned off. Patient is producing adequate amount of urine output. Afebrile. No other significant events overnight. On 09/25/2018, the patient is still sedated with Diprivan and still on a mechanical ventilator with essentially same vent setting without any progress over the past few days. Unable to cut down the sedation as the patient gets agitated and restless tachycardic tachypneic and desaturates once taken off sedation. Unable to further weaned off the mechanical ventilator as the patient has no much room in terms of his oxygenation. On today's evaluation is on a assist-control mode at the rate of 26 with a tidal volume of 400 with an FiO2 of 40% and a PEEP of 12. The blood care showed a pH of 7.46 with a pCO2 of 70 and pO2 57. Race on this I increased his FiO2 up to 60%. His chest x- ray shows no interval change. Tracheostomy tube is intact. No evidence of any air leak. No evidence of any subcutaneous emphysema. No fever. No chills. White cell count stable at 18.4. Electrolytes are unchanged. Unfortunately no much progress being done on this patient. I suspect that his advanced lung disease in addition to atelectatic changes in lung bases which is affecting his oxygenation and his ability to wean. He is on enteral feeding for nutritional support. He is on Lovenox for DVT prophylaxis. He is on IV Solu Medrol addition to a combination of bronchodilators and inhaled corticosteroids. He is receiving enteral feeding for nutritional support. On 09/26/2018, the patient remains sedated. We are at the [place] we're not able to do any progress in this patient. The patient is unable to wean off the mechanical ventilator. His PEEP and FiO2 requirements have been quite high. Chest x-ray shows no acute changes. Overnight the patient developed hypoxemia and they oxygenation saturation was dropping. Based on that I increased the PEEP up to 15 and FiO2 at 75%. Blood gases from this morning showed a pH of 7.4 with a pCO2 of 82 and pO2 of 99. The patient's peak pressures around 34. The patient was having bleeding and frothy sputum around his tracheostomy tube. His white cell count is at 29.4. He was stable at 14.2. Still requiring Diprivan which is running at 45 mics per KG per minute and unable to Sedation As the Patient Becomes Asynchronous and Desaturates. Hemodynamically, He Is Blood Pressure Is Maintained without Any Pressors and Is Producing Adequate Amount of Urine Output. No fever. No chills. No other significant events overnight. Atelectatic discussion with the family. I met the daughter and explained to her the ongoing issues lingular encountering with this patient. I' m unable to wean this patient and based on my evaluation the patient would likely not be independent left mechanical ventilator in the future. Answering the family's weaning with comfort care measures. His baseline performance and functional status is extremely poor and the patient had very poor medical follow -up regarding his current health and COPD in general. On 09/27/2018 I am seeing this patient for a follow-up. The plan is to proceed with comfort care once more family arrive to the hospital for terminal wean. The plan is to proceed with terminal wean/comfort care measures once the family occasions that. I think the incision is already been taken and were still awaiting final instructions from the daughter. On today's blood work, the patient is a white cell count of 20.1. Blood gases remained essentially unchanged with a pH of 7.4 with a pCO2 of 84 and pO2 163 and this was done and FiO2 of 75% and a PEEP of 15. FiO2 has been weaned down to 50%. No fever. No chills. Tolerating feeds. Remains sedated with Diprivan. No other significant events over the past 24 hours. Objective - Vital Signs Vital signs: Vital Signs Temp 98.9 F 09/27/18 08:00 Pulse 76 09/27/18 13:00 Resp 26 H 09/27/18 13:00 BP 92/55 09/27/18 13:00 Pulse Ox 94 L 09/27/18 13:00 Intake & Output 09/26/18 09/27/18 09/27/18 18:59 06:59 18:59 Intake Total 1590.01 1573.968 446 Output Total 1470 1910 775 Balance 120.01 -336.032 -329 Weight 86.9 kg Intake: IV 253 376 261 Potassium Chloride 10 meq 100 100 In Water For Injection 1 100ml.bag @ 100 mls/hr IVPB Q1H [facility] Rx#: [id number] Pressure bag of 0.9 NaCl- 33 36 21 Sodium Chloride 0.9% 1, 220 240 140 000 ml @ 20 mls/hr IV . Q24H [facility] Rx#:[id number] Intake, IV Titration 198.01 315.968 Amount Norepinephrine 4 mg In 153.563 Sodium Chloride 0.9% 250 ml @ Titrate IV .Q0M [facility] Rx#:[id number] Propofol 1,000 mg In 198.01 162.405 Empty Bag 1 bag @ Titrate IV .Q0M [facility] Rx#: [id number] Tube Feeding 1139 792 185 Other 90 Output: Urine 1470 1910 775 Other: Voiding Method Indwelling Catheter Indwelling Catheter Indwelling Catheter ABP, PAP, CO, CI - Last Documented Arterial Blood Pressure 109/49 - Exam No acute distress, sedated with a tracheostomy tube and PEG tube in place. The patient is sedated and paralyzed synchronous with the mechanical ventilator. No evidence of any subcu emphysema. The patient is very symptoms with the mechanical ventilator while sedated. He does poorly once taken off sedation. HEENT examination is grossly unremarkable. Mucous membranes are moist. Tracheostomy tube in place and the patient is an extra long Shiley tracheostomy tube #8. Neck supple. Full range of motion. No adenopathy thyromegaly or neck vein distention. Cardiovascular Cardiac exam revealed the PMI to be normally situated and sized. The rhythm was regular and no extrasystoles were noted during several minutes of auscultation. The first and second heart sounds were normal and physiologic splitting of the second heart sound was noted. There were no murmurs, rubs, clicks, or gallops. Lungs reveal coarse diffuse bilateral inspiratory and expiratory rhonchi and wheezes. No crackles are noted. Breath sounds equal bilaterally. Breath sounds are bit more closely than yesterday's exam. Subcutaneous emphysema is much improved, nearly recovered Abdomen soft and bowel sounds are heard. No masses or tenderness. PEG tube noted. Extremities are intact. No cyanosis clubbing or edema. Examination of the skin revealed no evidence of significant rashes, suspicious appearing nevi or other concerning lesions. Neurologic examination is very difficult to assess as the patient is sedated. Once taken off sedation he would open up his eyes and track. He does not follow any commands. He gets however quite restless and worked up and agitated , affecting his oxygenation and synchrony with the mechanical ventilator. - Labs CBC & Chem 7: 09/27/18 03:50 09/27/18 03:50 Labs: Abnormal Lab Results - Last 24 Hours (Table) 09/26/18 09/26/18 09/26/18 Range/Units 04:00 18:34 20:58 WBC (3.8-10.6) k/uL RBC (4.30-5.90) m/uL MCV (80.0-100.0) fL MCHC (31.0-37.0) g/dL Plt Count (150-450) k/uL Neutrophils # (1.3-7.7) k/uL Lymphocytes # (1.0-4.8) k/uL ABG pCO2 (35-45) mmHg ABG pO2 (83-108) mmHg ABG HCO3 (21-25) mmol/L ABG Total CO2 (19-24) mmol/L ABG O2 Saturation (94-97) % Chloride (98-107) mmol/L Carbon Dioxide (22-30) mmol/L BUN (9-20) mg/dL Creatinine (0.66-1.25) mg/dL Glucose (74-99) mg/dL POC Glucose (mg/dL) 180 H 171 H (75-99) mg/dL Hemoglobin A1c 6.2 H (4.0-6.0) % Magnesium (1.6-2.3) mg/dL 09/27/18 09/27/18 09/27/18 Range/Units 01:09 03:50 03:50 WBC 20.1 H (3.8-10.6) k/uL RBC 4.16 L (4.30-5.90) m/uL MCV 106.1 H (80.0-100.0) fL MCHC 29.9 L (31.0-37.0) g/dL Plt Count 84 L (150-450) k/uL Neutrophils # 19.2 H (1.3-7.7) k/uL Lymphocytes # 0.3 L (1.0-4.8) k/uL ABG pCO2 (35-45) mmHg ABG pO2 (83-108) mmHg ABG HCO3 (21-25) mmol/L ABG Total CO2 (19-24) mmol/L ABG O2 Saturation (94-97) % Chloride 94 L (98-107) mmol/L Carbon Dioxide 50 H* (22-30) mmol/L BUN 52 H (9-20) mg/dL Creatinine 0.48 L (0.66-1.25) mg/dL Glucose 202 H (74-99) mg/dL POC Glucose (mg/dL) 157 H (75-99) mg/dL Hemoglobin A1c (4.0-6.0) % Magnesium 2.4 H (1.6-2.3) mg/dL 09/27/18 09/27/18 09/27/18 Range/Units 04:38 05:40 12:23 WBC (3.8-10.6) k/uL RBC (4.30-5.90) m/uL MCV (80.0-100.0) fL MCHC (31.0-37.0) g/dL Plt Count (150-450) k/uL Neutrophils # (1.3-7.7) k/uL Lymphocytes # (1.0-4.8) k/uL ABG pCO2 84 H* (35-45) mmHg ABG pO2 163 H (83-108) mmHg ABG HCO3 53 H* (21-25) mmol/L ABG Total CO2 55 H (19-24) mmol/L ABG O2 Saturation 99.6 H (94-97) % Chloride (98-107) mmol/L Carbon Dioxide (22-30) mmol/L BUN (9-20) mg/dL Creatinine (0.66-1.25) mg/dL Glucose (74-99) mg/dL POC Glucose (mg/dL) 185 H 173 H (75-99) mg/dL Hemoglobin A1c (4.0-6.0) % Magnesium (1.6-2.3) mg/dL Assessment and Plan Plan: Assessment 1 Acute hypoxic/hypercapnic respiratory failure, secondary to COPD exacerbation. The patient is failure to wean. Awaiting comfort care measures/ terminal wean 2 Status post bronchoscopy for sampling of the lower respiratory tract and removal of airway secretions on 09/13/2018, and subsequently the bronchoscope was repeated on 09/22/2018 and the patient has negative cultures for now.. Therapeutic airway suctioning was done. Following the second bronchoscopy, there is improvement in the right lower lobe opacity and the patient is undergoing chest PT and percussion through the hospital bed. The cultures collected at all negative for any microbial growth. The patient is Amy which is most likely a colonizer. 3 Status post tracheostomy and PEG tube placement on 09/17/2018. 4 Massive subcutaneous emphysema and pneumomediastinum, post blood patch, and these abnormalities of recovered and the patient is not showing any air leak 5 Severe end-stage COPD 6 History of chronic and ongoing tobacco dependence 7 Severe ischemic cardiomyopathy with ejection fraction of 20-25% 8 History of noncompliance with medications and follow-ups 9 Previous history of respiratory failure with ventilator dependence 10 Coronary artery disease, status post stent placements in the right coronary artery and circumflex coronary artery 11 History of nonsustained ventricular tachycardia 12 History of DVT 13 Status post fem-fem bypass for peripheral vascular disease 14 History of essential hypertension 15 History of hyperlipidemia PLAN Awaiting to implement comfort care measures once all family members are at the bedside. This has been taking it. This will be done either today or tomorrow. Continue supportive measures only.
[2018-09-27 17:29] LABS: Glucose,Whole Blood 177 mg/dL (75-99)
[2018-09-27] MEDS ORDERED: Potassium Replacement Protocol 1 EACH MISC MISCELLANE PRN (20:05)
[2018-09-27] MEDS: ATORVASTATIN 20 MG TAB PO SCH (20:56)
[2018-09-27] MEDS: INSULIN DETEMIR 100 UNIT/ML 10 ML VIAL SQ SCH (20:57)
[2018-09-27] MEDS ORDERED: POTASSIUM BICARBONATE/CIT AC 20 MEQ TABLET.EFF NG-TUBE SCH (21:00)
[2018-09-27 23:55] LABS: Glucose,Whole Blood 164 mg/dL (75-99)
--- NOTE | 2018-09-28 00:04 | PN ---
PROGRESS NOTE DATE OF SERVICE: 09/27/2018. PRESENTING COMPLAINT: Intubated. This patient with advanced COPD, smoker, CHF exacerbation, presented for the same. Remains in ICU intubated. Status post bronchoscopy x2 on the ventilator. The patient remains on propofol drip. Also getting tube feeding. Awaiting family to write so he can be made comfort care. REVIEW OF SYSTEMS: Patient intubated. CURRENT MEDICATIONS: Reviewed that include IV propofol. PHYSICAL EXAMINATION: VITAL SIGNS: Afebrile, pulse 84, respiratory 18, blood pressure 92/55, pulse ox 95 percent on ventilator. GENERAL APPEARANCE: Lying in bed, intubated. EYES: Pupils equal. Conjunctivae pale. HEENT dry mucous membranes. NECK: Tracheostomy in place. RESPIRATORY: Effort increased. LUNGS: Decreased breath sounds. CARDIOVASCULAR: Heart sounds irregular, some edema ABDOMEN: Soft, nontender. Liver and spleen not palpable. NEUROLOGICAL: Arousable. INVESTIGATIONS: Blood gas culture showed pCO2 of 84, bicarb 53. White count 20.1, hemoglobin 13.2, potassium 3.7. ASSESSMENT: 1. Acute severe chronic obstructive pulmonary disease exacerbation in a smoker, slow to respond. 2. Status post bronchoscopy x2. 3. Chronic nicotine dependence patient is a cigarette smoker. 4. Acute on chronic congestive heart failure exacerbation from systolic dysfunction, ejection fraction 20% stabilized. 5. Acute hypoxic respiratory failure underlying chronic obstructive pulmonary disease, remains on ventilator assistance. 6. Coronary artery disease with stent in 2013. 7. Peripheral artery disease with fem-fem bypass. 8. Hyperlipidemia. 9. Essential hypertension. 10.Restless legs syndrome. 11.Chronic rotator cuff injury. 12.Gastroesophageal reflux disease. 13.Status post tracheostomy and PEG tube. 14.Status post iatrogenic pneumomediastinum. 15.CODE STATUS: DO NOT RESUSCITATE. PLAN: Patient continues to do poorly. Awaiting patient switched over to hospice when the family arrives. MMODL / IJN: [id number] /
[2018-09-28] MEDS: PROPOFOL 1,000 MG in EMPTY BAG 1 BAG IV SCH ×2 (02:37→15:01)
[2018-09-28] MEDS: IPRATROPIUM-ALBUTEROL 3 ML NEB INHALATION SCH ×4 (03:03→15:43)
[2018-09-28 04:08] LABS: ABG Base Excess 29.3 mmol/L; ABG Oxygen Saturation 96.1 % (94-97); ABG PH 7.44 (7.35-7.45); ABG PO2 79 mmHg (83-108); ABG TCO2 56 mmol/L (19-24)
[2018-09-28 05:07] LABS: HCT 41.3 % (39.0-53.0); HGB 12.6 gm/dL (13.0-17.5); Hypochromasia Moderate; MCH 32.8 pg (25.0-35.0); MCHC 30.6 g/dL (31.0-37.0); MCV 107.4 fL (80.0-100.0); Macrocytosis Moderate; Mean Platelet Volume 9.5; RBC 3.85 m/uL (4.30-5.90); RDW 13.5 % (11.5-15.5); WBC 20.9 k/uL (3.8-10.6)
[2018-09-28 05:11] LABS: Platelet Count 76 k/uL (150-450)
[2018-09-28 05:37] LABS: Glucose,Whole Blood 232 mg/dL (75-99)
[2018-09-28 05:37] LABS: Blood Urea Nitrogen 50 mg/dL (9-20); Calcium 8.7 mg/dL (8.4-10.2); Chloride 94 mmol/L (98-107); Glucose 205 mg/dL (74-99); Magnesium 2.5 mg/dL (1.6-2.3); Potassium 3.8 mmol/L (3.5-5.1); Sodium 145 mmol/L (137-145)
[2018-09-28] MEDS: methylPREDNISolone SOD SUCCI 125 MG/2 ML VIAL IV SCH ×2 (05:40→13:29)
[2018-09-28] MEDS: INSULIN ASPART 100 UNIT/ML 1 ML 10 ML VIAL SQ SCH ×2 (05:40→13:29)
[2018-09-28 05:44] LABS: Anion Gap 0 mmol/L
[2018-09-28 05:47] LABS: Carbon Dioxide 51 mmol/L (22-30)
--- NOTE | 2018-09-28 07:20 | XR ---
EXAMINATION TYPE: XR chest 1V portable DATE OF EXAM: 09/28/2018 Comparison: 09/27/2018 Clinical History: 68-year-old male high oxygen demand w vent Findings: Heart normal size. Atherosclerotic arch calcifications. Relative upper lung lucencies suggest underly ing emphysema. Tracheostomy cannula is in place. Some strandy atelectasis of the lung bases. Some pat juventino retrocardiac opacity remains. No sizable pleural effusion on the frontal view. Impression: Suspect underlying emphysema. Some patchy retrocardiac opacity remains and could represent atelectasi s or infiltrate.
[2018-09-28 07:26] LABS: ABG HCO3 49 mmol/L (21-25); ABG PO2 57 mmHg (83-108)
[2018-09-28 07:32] LABS: ABG PCO2 84 mmHg (35-45)
[2018-09-28] MEDS: BUDESONIDE 1 MG/2 ML NEBU INHALATION SCH (08:02)
[2018-09-28] MEDS: FORMOTEROL FUMARATE 20 MCG/2 ML NEBU INHALATION SCH (08:02)
[2018-09-28] MEDS: CISATRACURIUM 200 MG in SODIUM CHLORIDE 0.9% 180 ML IV SCH (08:05)
[2018-09-28] MEDS: FUROSEMIDE 10 MG/ML 4 ML VIAL IV SCH (08:26)
[2018-09-28] MEDS: CHLORHEXIDINE GLUCONATE 15 ML CUP MUCOUS MEM SCH (08:26)
[2018-09-28] MEDS: FAMOTIDINE 20 MG/2 ML VIAL IV SCH (08:26)
[2018-09-28] MEDS: ARTIFICIAL TEARS-HYPROMELLOSE DROPS 15 ML BTL BOTH EYES SCH ×2 (08:27→14:43)
[2018-09-28] MEDS: ASPIRIN 81 MG PO SCH (08:27)
[2018-09-28] MEDS: LISINOPRIL 2.5 MG TAB PO SCH (08:27)
[2018-09-28] MEDS: NICOTINE 21MG/24HR PATCH TRANSDERM SCH (08:27)
[2018-09-28] MEDS: METOPROLOL TARTRATE 25 MG TAB PO SCH (08:27)
[2018-09-28 11:14] VITALS: BMI 28.3
[2018-09-28 12:23] LABS: Glucose,Whole Blood 180 mg/dL (75-99)
--- NOTE | 2018-09-28 13:28 | P.PN ---
Subjective Progress Note Date: 09/28/18 Principal diagnosis: On 09/27/2018 I am seeing this patient for a follow-up. The plan is to proceed with comfort care once more family arrive to the hospital for terminal wean. The plan is to proceed with terminal wean/comfort care measures once the family occasions that. I think the incision is already been taken and were still awaiting final instructions from the daughter. On today's blood work, the patient is a white cell count of 20.1. Blood gases remained essentially unchanged with a pH of 7.4 with a pCO2 of 84 and pO2 163 and this was done and FiO2 of 75% and a PEEP of 15. FiO2 has been weaned down to 50%. No fever. No chills. Tolerating feeds. Remains sedated with Diprivan. No other significant events over the past 24 hours. On 09/28/2018, patient remains on mechanical ventilation, and he is presently on tidal volume of 400 assist control rate of 26, PEEP is 15 FiO2 is 50%. Patient is sedated, apparently multiple attempts in the past have failed to wean the patient, and Dr. Menjivar already discussed with the family plans on comfort care and withdrawal of ventilatory support. According to the nurse taking care of the patient, this is going to take place sometime today when the family becomes available. In the meantime I have no plans at this point to assess for weaning, patient is nowhere near ready for weaning, apparently has severe underlying end-stage COPD, and he will be ventilatory dependent for a long period of time. Again he remains on relatively high FiO2 and high PEEP. All his labs and chest x-ray were reviewed. Objective - Vital Signs Vital signs: Vital Signs Temp 98.2 F 09/28/18 08:00 Pulse 80 09/28/18 12:40 Resp 26 H 09/28/18 11:00 BP 100/54 09/28/18 11:00 Pulse Ox 94 L 09/28/18 11:00 Intake & Output 09/27/18 09/28/18 09/28/18 18:59 06:59 18:59 Intake Total 696 1022.935 193 Output Total 1450 1460 245 Balance -754 -437.065 -52 Weight 87 kg 87 kg Intake: IV 374 339 82 Potassium Chloride 10 meq 100 In Water For Injection 1 100ml.bag @ 100 mls/hr IVPB Q1H [facility] Rx#: [id number] Pressure bag of 0.9 NaCl- 34 39 12 Sodium Chloride 0.9% 1, 240 300 70 000 ml @ 20 mls/hr IV . Q24H [facility] Rx#:[id number] Intake, IV Titration 100 172.935 Amount Propofol 1,000 mg In 100 172.935 Empty Bag 1 bag @ Titrate IV .Q0M [facility] Rx#: [id number] Tube Feeding 222 481 111 Other 30 Output: Urine 1450 1460 245 Other: Voiding Method Indwelling Catheter Indwelling Catheter Indwelling Catheter ABP, PAP, CO, CI - Last Documented Arterial Blood Pressure 108/49 - Exam Physical Exam: Revealed a 68-year-old white male on mechanical ventilation, sedated, has a tracheostomy tube in place. And a PEG tube in place. Head: Atraumatic, normocephalic, tracheostomy seems intact. Patient has a Shiley tracheostomy #8. HEENT:[Neck is supple.] [No neck masses.] [No thyromegaly.] [No JVD.] Chest: [Extremely diminished breath sound bilaterally, no crackles or rhonchi or wheezes.] Cardiac Exam: [Normal S1 and S2, no S3 gallop, no murmur.] Abdomen: [Soft, nontender, no megaly, no rebound, no guarding, normal bowel sounds.] Extremities: [No clubbing, no edema, no cyanosis.] Neurological Exam: Sedated, cannot be assessed. Psychiatric: Cannot be assessed. Skin: No rashes. - Labs CBC & Chem 7: 09/28/18 04:08 09/28/18 04:08 Labs: Abnormal Lab Results - Last 24 Hours (Table) 09/25/18 09/27/18 09/27/18 Range/Units 05:21 04:38 17:27 WBC (3.8-10.6) k/uL RBC (4.30-5.90) m/uL Hgb (13.0-17.5) gm/dL MCV (80.0-100.0) fL MCHC (31.0-37.0) g/dL Plt Count (150-450) k/uL ABG pCO2 84 H* (35-45) mmHg ABG pO2 57 L* (83-108) mmHg ABG HCO3 49 H* (21-25) mmol/L ABG Total CO2 (19-24) mmol/L Chloride (98-107) mmol/L Carbon Dioxide (22-30) mmol/L BUN (9-20) mg/dL Creatinine (0.66-1.25) mg/dL Glucose (74-99) mg/dL POC Glucose (mg/dL) 177 H (75-99) mg/dL Magnesium (1.6-2.3) mg/dL 09/27/18 09/28/18 09/28/18 Range/Units 23:53 04:06 04:08 WBC 20.9 H (3.8-10.6) k/uL RBC 3.85 L (4.30-5.90) m/uL Hgb 12.6 L (13.0-17.5) gm/dL MCV 107.4 H (80.0-100.0) fL MCHC 30.6 L (31.0-37.0) g/dL Plt Count 76 L (150-450) k/uL ABG pCO2 80 H* (35-45) mmHg ABG pO2 79 L (83-108) mmHg ABG HCO3 54 H* (21-25) mmol/L ABG Total CO2 56 H (19-24) mmol/L Chloride (98-107) mmol/L Carbon Dioxide (22-30) mmol/L BUN (9-20) mg/dL Creatinine (0.66-1.25) mg/dL Glucose (74-99) mg/dL POC Glucose (mg/dL) 164 H (75-99) mg/dL Magnesium (1.6-2.3) mg/dL 09/28/18 09/28/18 09/28/18 Range/Units 04:08 05:35 12:08 WBC (3.8-10.6) k/uL RBC (4.30-5.90) m/uL Hgb (13.0-17.5) gm/dL MCV (80.0-100.0) fL MCHC (31.0-37.0) g/dL Plt Count (150-450) k/uL ABG pCO2 (35-45) mmHg ABG pO2 (83-108) mmHg ABG HCO3 (21-25) mmol/L ABG Total CO2 (19-24) mmol/L Chloride 94 L (98-107) mmol/L Carbon Dioxide 51 H* (22-30) mmol/L BUN 50 H (9-20) mg/dL Creatinine 0.52 L (0.66-1.25) mg/dL Glucose 205 H (74-99) mg/dL POC Glucose (mg/dL) 232 H 180 H (75-99) mg/dL Magnesium 2.5 H (1.6-2.3) mg/dL Microbiology - Last 24 Hours (Table) 09/22/18 10:20 Fungal Culture - Preliminary Bronchial Washings - Right Amy glabrata Assessment and Plan Assessment: 1 Acute hypoxic/hypercapnic respiratory failure, secondary to COPD exacerbation. The patient is failure to wean. Awaiting comfort care measures/ terminal wean 2 Status post bronchoscopy for sampling of the lower respiratory tract and removal of airway secretions on 09/13/2018, and subsequently the bronchoscope was repeated on 09/22/2018 and the patient has negative cultures for now.. Therapeutic airway suctioning was done. Following the second bronchoscopy, there is improvement in the right lower lobe opacity and the patient is undergoing chest PT and percussion through the hospital bed. The cultures collected at all negative for any microbial growth. The patient is Amy which is most likely a colonizer. 3 Status post tracheostomy and PEG tube placement on 09/17/2018. 4 Massive subcutaneous emphysema and pneumomediastinum, post blood patch, and these abnormalities of recovered and the patient is not showing any air leak 5 Severe end-stage COPD 6 History of chronic and ongoing tobacco dependence 7 Severe ischemic cardiomyopathy with ejection fraction of 20-25% 8 History of noncompliance with medications and follow-ups 9 Previous history of respiratory failure with ventilator dependence 10 Coronary artery disease, status post stent placements in the right coronary artery and circumflex coronary artery 11 History of nonsustained ventricular tachycardia 12 History of DVT 13 Status post fem-fem bypass for peripheral vascular disease 14 History of essential hypertension 15 History of hyperlipidemia Recommendation: No plans to proceed to weaning at this point, the patient's condition has been already discussed by Dr. Menjivar and the family, and I believe plans are in progress for terminal weaning today. We'll continue to follow. Time with Patient: Less than 30
[2018-09-28] MEDS: SODIUM CHLORIDE 0.9% 1,000 ML IV SCH (13:29)
[2018-09-28] MEDS ORDERED: LORazepam 2 MG/ML INJ IV PRN (13:37)
[2018-09-28] MEDS ORDERED: ATROPINE OPHTH SOLN 1% 5ML BTL SUBLINGUAL PRN (13:37)
[2018-09-28] MEDS ORDERED: SCOPOLAMINE 1.5MG/72HR PATCH TRANSDERM SCH (13:45)
[2018-09-28] MEDS ORDERED: MORPHINE SULFATE (100 MG/2 ML) 100 MG in SODIUM CHLORIDE 0.9% 100 ML IV SCH (13:45)
[2018-09-28 14:08] VITALS: TEMP 98.7
[2018-09-28] MEDS: MORPHINE SULFATE 2 MG/ML SYRINGE IV PRN ×2 (15:54→17:53)
[2018-09-28 18:35] VITALS: BP 115/50; PULSE 69; RESP 6
[2018-09-29 07:44] LABS: ABG HCO3 54 mmol/L (21-25); ABG PCO2 80 mmHg (35-45)
--- NOTE | 2018-09-29 09:01 | DS ---
DISCHARGE SUMMARY DATE OF ADMISSION: 09/10/2018 DATE OF EXPIRATION: 09/28/2018. CAUSE OF : COPD. OTHER MEDICAL CONDITIONS: 1. Acute COPD exacerbation. 2. Chronic nicotine dependence, patient is a cigarette smoker. 3. Acute on chronic congestive heart failure exacerbation from systolic dysfunction, ejection fraction 20%. 4. Acute hypoxic respiratory failure from underlying chronic obstructive pulmonary disease. 5. Coronary artery disease with stent in 2013. 6. Peripheral artery disease with fem-fem bypass. 7. Hyperlipidemia. 8. Essential hypertension. 9. Restless legs syndrome. 10.Chronic rotator cuff injury. 11.Gastroesophageal reflux disease. 12.Pneumomediastinum. PROCEDURE: Tracheostomy, PEG tube AND bronchoscopy x2. CONSULTATIONS: 1. Dr. Menjivar and colleagues from [facility]. 2. Dr. Baptiste from Cardiothoracic Surgery. 3. Dr. Katharine Razo from Cardiology. HOSPITAL COURSE: This patient with advanced CHF, COPD, smoker, presented with exacerbation of COPD, CHF, had to be intubated. Lengthy course took place in the ICU. Patient never really recovered. Patient did have a tracheostomy and a PEG tube also placed. Patient also had some pneumomediastinum. Eventually, patient's sister after discussion decided to make the patient comfort care and patient was terminally extubated. This morning, patient had remained on a Diprivan drip in ICU and was later in the day terminally extubated. Patient is estranged from his who lives [place] of [place]. Total time spent today was more than 35 minutes. MMLIDIA / STEWN: [id number] /
== END 2018-09-28 22:50 | disposition expired | DRG 4 ==
LOC: EC 20:40 → 2SICU 09-10 00:12 → UNDODISIN 09-29 05:00
PROVIDERS: ADMIT Hospitalist; ATTEND Hospitalist
PROC: 5A1955Z Respiratory Ventilation, Greater than 96 Consecutive Hours (ICD-10-PCS; 2018-09-09)
PROC: 0BH18EZ Insertion of Endotracheal Airway into Trachea, Via Natural or Artificial Opening Endoscopic (ICD-10-PCS; 2018-09-09)
PROC: 03HY32Z Insertion of Monitoring Device into Upper Artery, Percutaneous Approach (ICD-10-PCS; 2018-09-10)
PROC: 4A133B1 Monitoring of Arterial Pressure, Peripheral, Percutaneous Approach (ICD-10-PCS; 2018-09-10)
PROC: 4A133J1 Monitoring of Arterial Pulse, Peripheral, Percutaneous Approach (ICD-10-PCS; 2018-09-10)
PROC: 0B9J7ZX Drainage of Left Lower Lung Lobe, Via Natural or Artificial Opening, Diagnostic (ICD-10-PCS; 2018-09-13)
PROC: 0B968ZZ Drainage of Right Lower Lobe Bronchus, Via Natural or Artificial Opening Endoscopic (ICD-10-PCS; 2018-09-13)
PROC: 3E0F8GC Introduction of Other Therapeutic Substance into Respiratory Tract, Via Natural or Artificial Opening Endoscopic (ICD-10-PCS; 2018-09-13)
PROC: 0BJ08ZZ Inspection of Tracheobronchial Tree, Via Natural or Artificial Opening Endoscopic (ICD-10-PCS; 2018-09-17)
PROC: 0DH63UZ Insertion of Feeding Device into Stomach, Percutaneous Approach (ICD-10-PCS; 2018-09-17)
PROC: 0B113F4 Bypass Trachea to Cutaneous with Tracheostomy Device, Percutaneous Approach (ICD-10-PCS; principal; 2018-09-17 08:15)
PROC: 0BJ08ZZ Inspection of Tracheobronchial Tree, Via Natural or Artificial Opening Endoscopic (ICD-10-PCS; 2018-09-18)
PROC: 0BCB8ZZ Extirpation of Matter from Left Lower Lobe Bronchus, Via Natural or Artificial Opening Endoscopic (ICD-10-PCS; 2018-09-22)
PROC: 0BC68ZZ Extirpation of Matter from Right Lower Lobe Bronchus, Via Natural or Artificial Opening Endoscopic (ICD-10-PCS; 2018-09-22)
DX: J96.21 Acute and chronic respiratory failure with hypoxia (principal); I50.23 Acute on chronic systolic (congestive) heart failure; J15.6 Pneumonia due to other Gram-negative bacteria; J15.8 Pneumonia due to other specified bacteria; E87.4 Mixed disorder of acid-base balance; T17.890A Other foreign object in other parts of respiratory tract causing asphyxiation, initial encounter; J44.1 Chronic obstructive pulmonary disease with (acute) exacerbation; J44.0 Chronic obstructive pulmonary disease with (acute) lower respiratory infection; J98.11 Atelectasis; J84.9 Interstitial pulmonary disease, unspecified; J93.82 Other air leak; Z99.11 Dependence on respirator [ventilator] status; J95.71 Accidental puncture and laceration of a respiratory system organ or structure during a respiratory system procedure; J96.22 Acute and chronic respiratory failure with hypercapnia; Z66 Do not resuscitate; Z51.5 Encounter for palliative care; I95.9 Hypotension, unspecified; I25.82 Chronic total occlusion of coronary artery; D69.6 Thrombocytopenia, unspecified; I11.0 Hypertensive heart disease with heart failure; T81.82XA Emphysema (subcutaneous) resulting from a procedure, initial encounter; I25.5 Ischemic cardiomyopathy; R29.810 Facial weakness; G89.29 Other chronic pain; M25.551 Pain in right hip; M25.552 Pain in left hip; I49.3 Ventricular premature depolarization; E78.5 Hyperlipidemia, unspecified; G25.81 Restless legs syndrome; K21.9 Gastro-esophageal reflux disease without esophagitis; I25.2 Old myocardial infarction; I25.10 Atherosclerotic heart disease of native coronary artery without angina pectoris; M54.30 Sciatica, unspecified side; S46.009S Unspecified injury of muscle(s) and tendon(s) of the rotator cuff of unspecified shoulder, sequela; F17.210 Nicotine dependence, cigarettes, uncomplicated; Z91.14 Patient's other noncompliance with medication regimen; Z91.19 Patient's noncompliance with other medical treatment and regimen; Z79.82 Long term (current) use of aspirin; Z79.51 Long term (current) use of inhaled steroids; Z79.02 Long term (current) use of antithrombotics/antiplatelets; Z79.899 Other long term (current) drug therapy; Z86.718 Personal history of other venous thrombosis and embolism; Z86.79 Personal history of other diseases of the circulatory system; Z87.01 Personal history of pneumonia (recurrent); Z95.828 Presence of other vascular implants and grafts; Z95.5 Presence of coronary angioplasty implant and graft; Z90.49 Acquired absence of other specified parts of digestive tract; Z63.5 Disruption of family by separation and divorce; Z82.49 Family history of ischemic heart disease and other diseases of the circulatory system; Z82.5 Family history of asthma and other chronic lower respiratory diseases; Z83.3 Family history of diabetes mellitus; Z83.79 Family history of other diseases of the digestive system; Z83.6 Family history of other diseases of the respiratory system; Y83.8 Other surgical procedures as the cause of abnormal reaction of the patient, or of later complication, without mention of misadventure at the time of the procedure
CPT/HCPCS: 31500; 31624; 31645; 36415; 36600; 43246; 70450; 71045; 71275; 80048; 80053; 81001; 82550; 82553; 82805; 83036; 83605; 83735; 83880; 84100; 84132; 84484; 85025; 85027; 85379; 85610; 85730; 87040; 87070; 87086; 87102; 87116; 87205; 87206; 87252; 87496; 87498; 87502; 87529; 87634; 87798; 88108; 88305; 89050; 93005; 94002; 94003; 94640; 94645; 96365; 96367; 96375; 96376; 99291